=== PATIENT | male | born 1955 | race African-American/Black ===

== ENCOUNTER 2017-10-21 15:23 | Inpatient (IN) | payer MEDICARE ==
[2017-10-21] MEDS: IV NORMAL SALINE 1000ML BAG 1,000 ML IV ×2 (16:47→21:24)
[2017-10-21 17:06] LABS: BILIRUBIN,URINE NEGATIVE (NEG); CLARITY,URINE CLOUDY; COLOR,URINE YELLOW; GLUCOSE,URINE 100 mg/dL (NEG); NITRITE,URINE NEGATIVE (NEG); PROTEIN,URINE >=300 mg/dL (NEG-TRACE); UROBILINOGEN,URINE 0.2 mg/dL (0.2 mg/dL)
[2017-10-21 17:13] LABS: ADD MAN DIFF? NO
[2017-10-21 17:17] LABS: BASO # 0.1 x10^3/uL (0.0-0.2); BASO % 2 % (0-3); EOS # 0.1 x10^3/uL (0.0-0.7); EOS % 3 % (0-3); HEMATOCRIT 29.6 % (39.0-53.0); HEMOGLOBIN 9.7 g/dL (13.0-17.5); LYMPH # 1.2 x10^3/uL (1.0-4.8); LYMPH % 25 % (24-48); MEAN CORPUSCULAR HEMOGLOBIN 26 pg (25-35); MEAN CORPUSCULAR HGB CONC 33 g/dL (31-37); MEAN CORPUSCULAR VOLUME 80 fL (79-100); MONO # 0.5 x10^3/uL (0.0-1.1); MONO % 11 % (0-9); NEUT # 2.8 x10^3uL (1.8-7.7); NEUT % 59 % (31-73); PLATELET COUNT 175 x10^3/uL (140-400); RED BLOOD COUNT 3.72 x10^6/uL (4.30-5.70); WHITE BLOOD COUNT 4.7 x10^3/uL (4.0-11.0)
[2017-10-21 17:27] LABS: BACTERIA,URINE FEW /HPF (0-FEW); WBC,URINE TNTC /HPF (0-4)
[2017-10-21 17:28] LABS: ANION GAP 12 (6-14); BLOOD UREA NITROGEN 8 mg/dL (8-26); BUN/CREATININE RATIO 1 (6-20); CALCIUM 9.2 mg/dL (8.5-10.1); CARBON DIOXIDE 21 mmol/L (21-32); CHLORIDE 111 mmol/L (98-107); CREATININE 5.5 mg/dL (0.7-1.3); GFR 12.8; GLUCOSE 146 mg/dL (70-99); POTASSIUM 5.9 mmol/L (3.5-5.1); SODIUM 144 mmol/L (136-145)
[2017-10-21 17:34] LABS: ALK PHOS 68 U/L (46-116); ALT (SGPT) 9 U/L (16-63); AST (SGOT) 15 U/L (15-37); LIPASE 247 U/L (73-393); TOTAL BILIRUBIN 0.1 mg/dL (0.2-1.0); TOTAL PROTEIN 6.6 g/dL (6.4-8.2)
[2017-10-21] MEDS: DOXYCYCLINE HYCLATE 100 MG TABLET PO (17:45)
[2017-10-21] MEDS: cefTRIAXone IM 250 MG VIAL IM (17:45)
[2017-10-21 17:51] LABS: ALBUMIN 2.8 g/dL (3.4-5.0); ALBUMIN/GLOBULIN RATIO 0.7 (1.0-1.7)
[2017-10-21] MEDS ORDERED: ACETAMINOPHEN 325 MG TABLET. PO (19:45)
[2017-10-21] MEDS ORDERED: ONDANSETRON PF 4 MG/2 ML VIAL. IV (19:45)
[2017-10-21] MEDS: SODIUM POLYSTYRENE SULFONATE 15 GM/60 ML ORAL.SUSP. PO (20:07)
[2017-10-21 20:57] LABS: POC GLUCOSE 148 mg/dL (70-99)
[2017-10-21] MEDS ORDERED: DEXTROSE 50% 25 GM / 50ML DISP.SYRIN. IV (22:30)
[2017-10-21] MEDS: SODIUM BICARBONATE 650 MG TABLET. PO (23:22)
[2017-10-21] MEDS: GABAPENTIN 300 MG CAPSULE. PO (23:22)
[2017-10-21] MEDS: ATORVASTATIN CALCIUM 20 MG TABLET PO (23:22)
[2017-10-21] MEDS: INSULIN DETEMIR 300 UNITS/3 ML INSULN.PEN. SQ (23:31)
[2017-10-22] MEDS: cefTRIAXone IV Push 1 GM VIAL. IVP ×2 (00:26→20:44)
[2017-10-22 05:25] LABS: ADD MAN DIFF? NO
[2017-10-22 05:35] LABS: BASO % 1 % (0-3); EOS # 0.2 x10^3/uL (0.0-0.7); EOS % 4 % (0-3); HEMATOCRIT 25.3 % (39.0-53.0); HEMOGLOBIN 8.3 g/dL (13.0-17.5); LYMPH # 1.2 x10^3/uL (1.0-4.8); LYMPH % 29 % (24-48); MEAN CORPUSCULAR HEMOGLOBIN 26 pg (25-35); MEAN CORPUSCULAR HGB CONC 33 g/dL (31-37); MEAN CORPUSCULAR VOLUME 80 fL (79-100); MONO # 0.5 x10^3/uL (0.0-1.1); MONO % 11 % (0-9); NEUT # 2.4 x10^3uL (1.8-7.7); NEUT % 55 % (31-73); PLATELET COUNT 143 x10^3/uL (140-400); RED BLOOD COUNT 3.15 x10^6/uL (4.30-5.70); RED CELL DISTRIBUTION WIDTH 14.9 % (11.5-14.5); WHITE BLOOD COUNT 4.3 x10^3/uL (4.0-11.0)
[2017-10-22] MEDS: IV NORMAL SALINE 1000ML BAG 1,000 ML IV ×2 (05:35→16:54)
[2017-10-22 05:43] LABS: INR 1.2 (0.8-1.1); PROTHROMBIN TIME PATIENT 14.3 SEC (11.7-14.0)
[2017-10-22 06:18] LABS: % SAT IRON 35 % (15-34); IRON,SERUM 59 ug/dL (65-175)
[2017-10-22 06:20] LABS: FERRITIN 103 ng/mL (26-388)
[2017-10-22 06:47] LABS: ANION GAP 12 (6-14); BLOOD UREA NITROGEN 43 mg/dL (8-26); CALCIUM 8.1 mg/dL (8.5-10.1); CARBON DIOXIDE 17 mmol/L (21-32); CHLORIDE 115 mmol/L (98-107); CREATININE 4.9 mg/dL (0.7-1.3); GFR 14.6; GLUCOSE 108 mg/dL (70-99); POTASSIUM 4.8 mmol/L (3.5-5.1); SODIUM 144 mmol/L (136-145)
[2017-10-22] MEDS: INSULIN ASPART 300 UNITS/3 ML INSULN.PEN SQ ×3 (08:00→16:57)
[2017-10-22 08:06] LABS: POC GLUCOSE 115 mg/dL (70-99)
[2017-10-22] MEDS: CHOLECALCIFEROL (VITAMIN D3) 1,000 UNIT TABLET PO (08:29)
[2017-10-22] MEDS: GABAPENTIN 300 MG CAPSULE. PO ×2 (08:29→20:43)
[2017-10-22] MEDS: amLODIPine BESYLATE 5 MG TABLET PO (08:29)
[2017-10-22] MEDS: FERROUS SULFATE 325 MG TABLET. PO (08:29)
[2017-10-22] MEDS: SODIUM BICARBONATE 650 MG TABLET. PO ×3 (08:29→20:43)
[2017-10-22] MEDS ORDERED: DEXTROSE 50% 25 GM / 50ML DISP.SYRIN. IV (09:30)
[2017-10-22 11:38] LABS: POC GLUCOSE 105 mg/dL (70-99)
[2017-10-22 11:54] LABS: VITAMIN-B12 344 pg/mL (247-911)
[2017-10-22] MEDS ORDERED: HEPARIN for IV BOLUS 10,000 UNIT/10 ML VIAL. (15:29)
[2017-10-22] MEDS ORDERED: LIDOCAINE 2%/EPI 1:100,000 20 ML VIAL. (15:29)
[2017-10-22] MEDS ORDERED: MIDAZOLAM HCL/PF 2 MG/2 ML VIAL. (15:34)
[2017-10-22] MEDS ORDERED: fentaNYL PF VIAL 100 MCG/2 ML VIAL (15:35)
[2017-10-22] MEDS: MIDAZOLAM HCL/PF 2 MG/2 ML VIAL. IV (16:00)
[2017-10-22] MEDS: fentaNYL PF VIAL 100 MCG/2 ML VIAL IV (16:00)
[2017-10-22] MEDS: LIDOCAINE 2%/EPI 1:100,000 20 ML VIAL. IJ (16:00)
[2017-10-22 16:38] LABS: POC GLUCOSE 98 mg/dL (70-99)
[2017-10-22] MEDS: ATORVASTATIN CALCIUM 20 MG TABLET PO (20:43)
[2017-10-22] MEDS: LACTOBACILLUS RHAMNOSUS GG 1 CAPSULE. PO (20:43)
[2017-10-22] MEDS: DARBEPOETIN ALFA 60 MCG/0.3 ML DISP.SYRIN. SQ (20:43)
[2017-10-22] MEDS: INSULIN DETEMIR 300 UNITS/3 ML INSULN.PEN. SQ (20:53)
[2017-10-23] MEDS: HYDROcodone/APAP 5/325MG 1 TAB TABLET PO ×4 (03:52→23:03)
[2017-10-23 05:38] LABS: HEMATOCRIT 28.1 % (39.0-53.0); HEMOGLOBIN 9.2 g/dL (13.0-17.5); MEAN CORPUSCULAR HEMOGLOBIN 26 pg (25-35); MEAN CORPUSCULAR HGB CONC 33 g/dL (31-37); MEAN CORPUSCULAR VOLUME 80 fL (79-100); PLATELET COUNT 150 x10^3/uL (140-400); RED BLOOD COUNT 3.51 x10^6/uL (4.30-5.70); RED CELL DISTRIBUTION WIDTH 15.1 % (11.5-14.5); WHITE BLOOD COUNT 4.5 x10^3/uL (4.0-11.0)
[2017-10-23 06:32] LABS: ALBUMIN 2.3 g/dL (3.4-5.0); ALK PHOS 70 U/L (46-116); ALT (SGPT) 7 U/L (16-63); ANION GAP 9 (6-14); AST (SGOT) 13 U/L (15-37); BLOOD UREA NITROGEN 44 mg/dL (8-26); CALCIUM 7.7 mg/dL (8.5-10.1); CARBON DIOXIDE 21 mmol/L (21-32); CHLORIDE 114 mmol/L (98-107); CREATININE 4.6 mg/dL (0.7-1.3); DIRECT BILIRUBIN < 0.1 mg/dL (0.0-0.2); GFR 15.7; GLUCOSE 185 mg/dL (70-99); PHOSPHORUS 3.7 mg/dL (2.6-4.7); POTASSIUM 5.2 mmol/L (3.5-5.1); SODIUM 144 mmol/L (136-145); TOTAL BILIRUBIN 0.1 mg/dL (0.2-1.0); TOTAL PROTEIN 5.8 g/dL (6.4-8.2)
[2017-10-23 06:52] LABS: % SAT IRON 18 % (15-34); IRON,SERUM 35 ug/dL (65-175)
[2017-10-23 08:13] LABS: POC GLUCOSE 227 mg/dL (70-99)
[2017-10-23] MEDS: amLODIPine BESYLATE 5 MG TABLET PO (08:14)
[2017-10-23] MEDS: SODIUM BICARBONATE 650 MG TABLET. PO ×3 (08:23→20:49)
[2017-10-23] MEDS: FERROUS SULFATE 325 MG TABLET. PO (08:23)
[2017-10-23] MEDS: GABAPENTIN 300 MG CAPSULE. PO ×2 (08:23→20:50)
[2017-10-23] MEDS: CHOLECALCIFEROL (VITAMIN D3) 1,000 UNIT TABLET PO (08:23)
[2017-10-23] MEDS: LACTOBACILLUS RHAMNOSUS GG 1 CAPSULE. PO ×2 (08:24→20:50)
[2017-10-23] MEDS ORDERED: IV NORMAL SALINE 1000ML BAG 1,000 ML IV ×2 (08:35)
[2017-10-23] MEDS: INSULIN ASPART 300 UNITS/3 ML INSULN.PEN SQ ×3 (08:35→17:07)
[2017-10-23] MEDS ORDERED: DIALYSIS PATIENT. MC ×2 (08:45)
[2017-10-23] MEDS ORDERED: 0.9 % SODIUM CHLORIDE 10 ML DISP.SYRIN. IV ×2 (08:45)
[2017-10-23 13:17] LABS: POC GLUCOSE 118 mg/dL (70-99)
[2017-10-23] MEDS: CYCLOBENZAPRINE 10 MG TABLET. PO (15:21)
[2017-10-23] MEDS: HEPARIN PF for SUB-Q USE 5,000 UNIT/0.5 ML VIAL. SQ ×2 (15:30→20:50)
[2017-10-23] MEDS ORDERED: WARFARIN 5 MG TABLET. PO (16:00)
[2017-10-23 16:32] LABS: POC GLUCOSE 215 mg/dL (70-99)
[2017-10-23] MEDS: WARFARIN 5 MG TABLET. PO (16:59)
[2017-10-23] MEDS: ZOLPIDEM 5 MG TABLET. PO (20:49)
[2017-10-23] MEDS: ATORVASTATIN CALCIUM 20 MG TABLET PO (20:49)
[2017-10-23] MEDS: cefTRIAXone IV Push 1 GM VIAL. IVP (20:50)
[2017-10-23] MEDS: INSULIN DETEMIR 300 UNITS/3 ML INSULN.PEN. SQ (20:57)
[2017-10-23 20:59] LABS: POC GLUCOSE 209 mg/dL (70-99)
[2017-10-23 21:11] LABS: POC GLUCOSE 221 mg/dL (70-99)
[2017-10-24 07:55] LABS: POC GLUCOSE 273 mg/dL (70-99)
[2017-10-24] MEDS: FERROUS SULFATE 325 MG TABLET. PO (08:17)
[2017-10-24] MEDS: GABAPENTIN 300 MG CAPSULE. PO ×2 (08:17→21:03)
[2017-10-24] MEDS: SODIUM BICARBONATE 650 MG TABLET. PO ×3 (08:17→21:03)
[2017-10-24] MEDS: HYDROcodone/APAP 5/325MG 1 TAB TABLET PO ×3 (08:18→21:04)
[2017-10-24] MEDS: LACTOBACILLUS RHAMNOSUS GG 1 CAPSULE. PO ×2 (08:18→21:03)
[2017-10-24] MEDS: CHOLECALCIFEROL (VITAMIN D3) 1,000 UNIT TABLET PO (08:18)
[2017-10-24] MEDS: amLODIPine BESYLATE 5 MG TABLET PO (08:22)
[2017-10-24 08:27] LABS: INR 1.1 (0.8-1.1); PROTHROMBIN TIME PATIENT 13.7 SEC (11.7-14.0)
[2017-10-24] MEDS: INSULIN ASPART 300 UNITS/3 ML INSULN.PEN SQ ×3 (08:30→16:53)
[2017-10-24] MEDS: HEPARIN PF for SUB-Q USE 5,000 UNIT/0.5 ML VIAL. SQ ×2 (08:31→21:14)
[2017-10-24 12:13] LABS: POC GLUCOSE 129 mg/dL (70-99)
[2017-10-24] MEDS: WARFARIN 7.5 MG TABLET. PO (16:47)
[2017-10-24 16:49] LABS: POC GLUCOSE 218 mg/dL (70-99)
[2017-10-24 20:58] LABS: POC GLUCOSE 216 mg/dL (70-99)
[2017-10-24] MEDS: ZOLPIDEM 5 MG TABLET. PO ×2 (21:03→23:09)
[2017-10-24] MEDS: ATORVASTATIN CALCIUM 20 MG TABLET PO (21:03)
[2017-10-24] MEDS: cefTRIAXone IV Push 1 GM VIAL. IVP (21:04)
[2017-10-24] MEDS: INSULIN DETEMIR 300 UNITS/3 ML INSULN.PEN. SQ (21:15)
[2017-10-24 23:08] LABS: HEP B SURFACE ABDY Non Reactive (.); HEP B SURFACE AG Negative (Negative)
[2017-10-25 05:55] LABS: INR 1.1 (0.8-1.1); PROTHROMBIN TIME PATIENT 13.9 SEC (11.7-14.0)
[2017-10-25] MEDS: INSULIN ASPART 300 UNITS/3 ML INSULN.PEN SQ ×5 (08:00→17:23)
[2017-10-25 08:01] LABS: POC GLUCOSE 227 mg/dL (70-99)
[2017-10-25] MEDS: HEPARIN PF for SUB-Q USE 5,000 UNIT/0.5 ML VIAL. SQ ×2 (09:00→21:13)
[2017-10-25] MEDS ORDERED: 0.9 % SODIUM CHLORIDE 10 ML DISP.SYRIN. IV ×2 (09:30)
[2017-10-25] MEDS ORDERED: DIALYSIS PATIENT. MC ×2 (09:30)
[2017-10-25] MEDS: SODIUM BICARBONATE 650 MG TABLET. PO ×3 (13:13→20:59)
[2017-10-25] MEDS: GABAPENTIN 300 MG CAPSULE. PO ×2 (13:13→20:59)
[2017-10-25] MEDS: CHOLECALCIFEROL (VITAMIN D3) 1,000 UNIT TABLET PO (13:13)
[2017-10-25] MEDS: FERROUS SULFATE 325 MG TABLET. PO (13:13)
[2017-10-25] MEDS: LACTOBACILLUS RHAMNOSUS GG 1 CAPSULE. PO ×2 (13:13→20:59)
[2017-10-25] MEDS: amLODIPine BESYLATE 5 MG TABLET PO (13:14)
[2017-10-25] MEDS: HYDROcodone/APAP 5/325MG 1 TAB TABLET PO ×2 (13:16→21:01)
[2017-10-25 16:20] LABS: POC GLUCOSE 272 mg/dL (70-99)
[2017-10-25] MEDS: WARFARIN 10 MG TABLET. PO (17:20)
[2017-10-25] MEDS: ATORVASTATIN CALCIUM 20 MG TABLET PO (20:59)
[2017-10-25] MEDS: cefTRIAXone IV Push 1 GM VIAL. IVP (21:00)
[2017-10-25] MEDS: ZOLPIDEM 5 MG TABLET. PO (21:01)
[2017-10-25] MEDS: INSULIN DETEMIR 300 UNITS/3 ML INSULN.PEN. SQ (21:14)
[2017-10-26 05:49] LABS: ALBUMIN 2.3 g/dL (3.4-5.0); ANION GAP 3 (6-14); BLOOD UREA NITROGEN 33 mg/dL (8-26); CALCIUM 8.2 mg/dL (8.5-10.1); CARBON DIOXIDE 31 mmol/L (21-32); CHLORIDE 103 mmol/L (98-107); CREATININE 3.8 mg/dL (0.7-1.3); GFR 19.6; GLUCOSE 294 mg/dL (70-99); PHOSPHORUS 2.4 mg/dL (2.6-4.7); POTASSIUM 4.7 mmol/L (3.5-5.1); SODIUM 137 mmol/L (136-145)
[2017-10-26 06:52] LABS: INR 1.4 (0.8-1.1); PROTHROMBIN TIME PATIENT 16.5 SEC (11.7-14.0)
[2017-10-26 07:28] LABS: POC GLUCOSE 238 mg/dL (70-99)
[2017-10-26] MEDS: LACTOBACILLUS RHAMNOSUS GG 1 CAPSULE. PO ×2 (07:44→21:25)
[2017-10-26] MEDS: SODIUM BICARBONATE 650 MG TABLET. PO (07:45)
[2017-10-26] MEDS: GABAPENTIN 300 MG CAPSULE. PO ×2 (07:45→21:25)
[2017-10-26] MEDS: ACETAMINOPHEN 325 MG TABLET. PO (07:46)
[2017-10-26] MEDS: FERROUS SULFATE 325 MG TABLET. PO (07:46)
[2017-10-26] MEDS: amLODIPine BESYLATE 5 MG TABLET PO (07:46)
[2017-10-26] MEDS: CHOLECALCIFEROL (VITAMIN D3) 1,000 UNIT TABLET PO (07:46)
[2017-10-26] MEDS: HEPARIN PF for SUB-Q USE 5,000 UNIT/0.5 ML VIAL. SQ ×2 (07:52→21:34)
[2017-10-26] MEDS: INSULIN ASPART 300 UNITS/3 ML INSULN.PEN SQ ×6 (07:52→17:32)
[2017-10-26] MEDS: HYDROcodone/APAP 5/325MG 1 TAB TABLET PO ×3 (07:55→21:26)
[2017-10-26] MEDS: VANCOMYCIN 2 GM in IV DEXTROSE 5 %-0.2 % NACL 500 ML IV ×2 (10:00→16:48)
[2017-10-26] MEDS: FOLIC/VIT B COMP W-C (RENAL) TABLET. PO (10:05)
[2017-10-26 11:22] LABS: POC GLUCOSE 98 mg/dL (70-99)
[2017-10-26] MEDS: VANCOMYCIN PER PHARMACY MC (15:33)
[2017-10-26] MEDS ORDERED: WARFARIN 5 MG TABLET. PO (16:00)
[2017-10-26] MEDS: WARFARIN 7.5 MG TABLET. PO (16:48)
[2017-10-26 17:32] LABS: POC GLUCOSE 265 mg/dL (70-99)
[2017-10-26 20:43] LABS: POC GLUCOSE 144 mg/dL (70-99)
[2017-10-26] MEDS: ATORVASTATIN CALCIUM 20 MG TABLET PO (21:25)
[2017-10-26] MEDS: ZOLPIDEM 5 MG TABLET. PO (21:25)
[2017-10-26 21:28] LABS: POC GLUCOSE 299 mg/dL (70-99)
[2017-10-26] MEDS: INSULIN DETEMIR 300 UNITS/3 ML INSULN.PEN. SQ (21:33)
[2017-10-26] MEDS: cefTRIAXone IV Push 1 GM VIAL. IVP (21:58)
[2017-10-26 23:30] LABS: POC GLUCOSE 148 mg/dL (70-99)
[2017-10-27 05:55] LABS: INR 2.1 (0.8-1.1)
[2017-10-27 07:35] LABS: POC GLUCOSE 133 mg/dL (70-99)
[2017-10-27] MEDS: INSULIN ASPART 300 UNITS/3 ML INSULN.PEN SQ ×6 (07:37→16:56)
[2017-10-27] MEDS: FOLIC/VIT B COMP W-C (RENAL) TABLET. PO (08:27)
[2017-10-27] MEDS: amLODIPine BESYLATE 5 MG TABLET PO (08:27)
[2017-10-27] MEDS: CHOLECALCIFEROL (VITAMIN D3) 1,000 UNIT TABLET PO (08:27)
[2017-10-27] MEDS: GABAPENTIN 300 MG CAPSULE. PO (08:27)
[2017-10-27] MEDS: HYDROcodone/APAP 5/325MG 1 TAB TABLET PO ×2 (08:28→17:04)
[2017-10-27] MEDS: HEPARIN PF for SUB-Q USE 5,000 UNIT/0.5 ML VIAL. SQ (08:32)
[2017-10-27] MEDS: LACTOBACILLUS RHAMNOSUS GG 1 CAPSULE. PO (09:00)
[2017-10-27] MEDS ORDERED: DIALYSIS PATIENT. MC ×2 (10:00)
[2017-10-27] MEDS: VANCOMYCIN PER PHARMACY MC (15:04)
[2017-10-27 16:35] LABS: POC GLUCOSE 248 mg/dL (70-99)
[2017-10-27] MEDS: WARFARIN 5 MG TABLET. PO (16:51)
[2017-10-27] MEDS: CEFPODOXIME PROXETIL 100 MG TABLET. PO (16:51)
[2017-10-27] MEDS: VANCOMYCIN RANDOM LEVEL. MC (18:00)
== END 2017-10-27 18:10 | disposition home or self-care (01) | DRG 673 ==
LOC: ER 15:23 → 5 NORTH 19:12
PROC: 0JH63XZ Insertion of Tunneled Vascular Access Device into Chest Subcutaneous Tissue and Fascia, Percutaneous Approach (ICD-10-PCS; 2017-10-22)
PROC: 02H633Z Insertion of Infusion Device into Right Atrium, Percutaneous Approach (ICD-10-PCS; 2017-10-22)
PROC: B244ZZZ Ultrasonography of Right Heart (ICD-10-PCS; 2017-10-22)
PROC: 5A1D70Z Performance of Urinary Filtration, Intermittent, Less than 6 Hours Per Day (ICD-10-PCS; principal; 2017-10-25)
PROC: 5A1D70Z Performance of Urinary Filtration, Intermittent, Less than 6 Hours Per Day (ICD-10-PCS; 2017-10-27)
DX: I12.0 Hypertensive chronic kidney disease with stage 5 chronic kidney disease or end stage renal disease (principal); N18.6 End stage renal disease; E87.2 Acidosis; E11.22 Type 2 diabetes mellitus with diabetic chronic kidney disease; E46 Unspecified protein-calorie malnutrition; N39.0 Urinary tract infection, site not specified; E87.5 Hyperkalemia; D63.1 Anemia in chronic kidney disease; Z68.28 Body mass index [BMI] 28.0-28.9, adult; F17.210 Nicotine dependence, cigarettes, uncomplicated; Z79.01 Long term (current) use of anticoagulants; Z79.4 Long term (current) use of insulin; Z82.49 Family history of ischemic heart disease and other diseases of the circulatory system; Z83.3 Family history of diabetes mellitus; Z85.038 Personal history of other malignant neoplasm of large intestine; Z86.718 Personal history of other venous thrombosis and embolism; Z90.49 Acquired absence of other specified parts of digestive tract; Z91.19 Patient's noncompliance with other medical treatment and regimen; Z93.3 Colostomy status; Z99.2 Dependence on renal dialysis; M19.90 Unspecified osteoarthritis, unspecified site; Z85.9 Personal history of malignant neoplasm, unspecified; Z88.8 Allergy status to other drugs, medicaments and biological substances
CPT/HCPCS: 36415; 36558; 71045; 74176; 76937; 77001; 80048; 80053; 80069; 80076; 81001; 82607; 82728; 82746; 82962; 83540; 83550; 83690; 84100; 85025; 85027; 85610; 86704; 86706; 87040; 87086; 87186; 87340; 87491; 87591; 93005; 96360; 96372; 99152; 99285; 99285-25; C1750; C1769; C1892; J0696; J0881; J1815; J2250; J3010; J3370; J3490; J7030

== ENCOUNTER 2018-01-05 17:39 | Emergency (ER) | payer MEDICARE ==
[2018-01-05 19:52] LABS: ADD MAN DIFF? NO
[2018-01-05 19:54] LABS: BASO % 1 % (0-3); EOS # 0.1 x10^3/uL (0.0-0.7); EOS % 2 % (0-3); HEMATOCRIT 32.2 % (39.0-53.0); HEMOGLOBIN 10.7 g/dL (13.0-17.5); LYMPH % 19 % (24-48); MEAN CORPUSCULAR HEMOGLOBIN 27 pg (25-35); MEAN CORPUSCULAR HGB CONC 33 g/dL (31-37); MEAN CORPUSCULAR VOLUME 81 fL (79-100); MONO # 0.8 x10^3/uL (0.0-1.1); MONO % 15 % (0-9); NEUT # 3.2 x10^3uL (1.8-7.7); NEUT % 62 % (31-73); PLATELET COUNT 156 x10^3/uL (140-400); RED BLOOD COUNT 3.96 x10^6/uL (4.30-5.70); RED CELL DISTRIBUTION WIDTH 15.4 % (11.5-14.5); WHITE BLOOD COUNT 5.1 x10^3/uL (4.0-11.0)
[2018-01-05 20:05] LABS: INR 1.2 (0.8-1.1); PROTHROMBIN TIME PATIENT 14.3 SEC (11.7-14.0)
[2018-01-05 20:11] LABS: ANION GAP 8 (6-14); BLOOD UREA NITROGEN 15 mg/dL (8-26); BUN/CREATININE RATIO 4 (6-20); CALCIUM 8.5 mg/dL (8.5-10.1); CARBON DIOXIDE 31 mmol/L (21-32); CHLORIDE 104 mmol/L (98-107); CREATININE 4.1 mg/dL (0.7-1.3); GLUCOSE 97 mg/dL (70-99); SODIUM 143 mmol/L (136-145)
[2018-01-05 20:15] LABS: NT-PRO BNP 750 pg/mL (0-124)
[2018-01-05 20:16] LABS: ALBUMIN 3.2 g/dL (3.4-5.0); ALBUMIN/GLOBULIN RATIO 0.8 (1.0-1.7); ALK PHOS 81 U/L (46-116); ALT (SGPT) 13 U/L (16-63); AST (SGOT) 15 U/L (15-37); TOTAL BILIRUBIN 0.4 mg/dL (0.2-1.0); TOTAL PROTEIN 7.3 g/dL (6.4-8.2)
[2018-01-05 22:04] LABS: TROPONINI < 0.017 ng/mL (0.000-0.055)
== END 2018-01-05 21:09 | disposition home or self-care (01) ==
LOC: ER 17:39
DX: R60.1 Generalized edema (principal); Z91.14 Patient's other noncompliance with medication regimen; E10.22 Type 1 diabetes mellitus with diabetic chronic kidney disease; N18.6 End stage renal disease; Z99.2 Dependence on renal dialysis; F17.210 Nicotine dependence, cigarettes, uncomplicated; Z79.01 Long term (current) use of anticoagulants; Z86.718 Personal history of other venous thrombosis and embolism; Z88.5 Allergy status to narcotic agent
CPT/HCPCS: 36415; 80053; 83880; 84484; 85025; 85610; 93971; 99285-25

== ENCOUNTER → 2018-02-07 | Outpatient (CLI) | payer MEDICARE ==
[2018-02-07 15:28] LABS: INR 1.3 (0.8-1.1); PROTHROMBIN TIME PATIENT 15.5 SEC (11.7-14.0)
== END | disposition home or self-care (01) ==
LOC: LAB 14:45
DX: Z51.81 Encounter for therapeutic drug level monitoring (principal); Z79.01 Long term (current) use of anticoagulants
CPT/HCPCS: 36415; 85610

== ENCOUNTER 2018-09-29 06:51 | Outpatient (CLI) | payer MEDICARE ==
[2018-09-29] VITALS (7 sets, daily range): BP systolic 137–175; BP diastolic 85–97
[~2018-09-29] VITALS: Ht 190.5 cm; Wt 90.7 kg
[~2018-09-29 06:51] MED LIST: AMLO10TA4 PO; AMOX1TAB61 PO; ASPI325T8 PO; ATOR20TA58 PO; BUSP5TAB PO; CEFP100T PO; CEPH-264 PO; CHOL10003 PO; CIPR500T94 PO; DILT180C29 PO; DOXY100T PO; FAMO20TA5 PO; FERR325T14 PO; FLUT16SP2 NS; FOLI0.8T3 PO; FOLI1TAB16 PO; FURO-69 PO; GABA300C18 PO; HYDR-2868 PO; HYDR2TAB31 PO; INSU100C SQ; INSU100I11 SQ; INSU100I13 SQ; LABE100T5 PO; LEXAPRO20 MG PO; LIDO700A39 TD; LISI-334 PO; LISI10TA2 PO; LORA-434 PO; LOSA100T2 PO; METH25VI27 SQ; MIRT15TA3 PO; OXYC5TAB4 PO; SODI650T PO; WARF-31 PO; WARF-78 PO
[2018-09-29 07:39] LABS: BASO % 1 % (0-3); EOS # 0.2 x10^3/uL (0.0-0.7); EOS % 4 % (0-3); HEMATOCRIT 35.5 % (39.0-53.0); HEMOGLOBIN 11.9 g/dL (13.0-17.5); LYMPH # 0.9 x10^3/uL (1.0-4.8); LYMPH % 24 % (24-48); MEAN CORPUSCULAR HEMOGLOBIN 28 pg (25-35); MEAN CORPUSCULAR HGB CONC 34 g/dL (31-37); MEAN CORPUSCULAR VOLUME 84 fL (79-100); MONO # 0.5 x10^3/uL (0.0-1.1); MONO % 13 % (0-9); NEUT # 2.2 x10^3uL (1.8-7.7); NEUT % 59 % (31-73); PLATELET COUNT 162 x10^3/uL (140-400); RED BLOOD COUNT 4.23 x10^6/uL (4.30-5.70); RED CELL DISTRIBUTION WIDTH 14.4 % (11.5-14.5); WHITE BLOOD COUNT 3.8 x10^3/uL (4.0-11.0)
[2018-09-29] MEDS ORDERED: AMLO10TA6 PO (07:49)
[2018-09-29] MEDS ORDERED: FURO80TA3 PO (07:49)
[2018-09-29 07:50] LABS: PROTHROMBIN TIME PATIENT 13.7 SEC (11.7-14.0)
[2018-09-29] MEDS ORDERED: WARF10TA40 PO (07:52)
[2018-09-29] MEDS ORDERED: WARF-31 PO ×2 (07:52)
[2018-09-29] MEDS ORDERED: LIDOCAINE WITH 8.4% SOD BICARB 3 ML DISP.SYRIN. ONE (08:01)
[2018-09-29] MEDS ORDERED: IODIXANOL 320 MG/ML 50ML VIAL. ONE (08:08)
[2018-09-29] MEDS ORDERED: IODIXANOL 320 MG/ML 100 ML VIAL. ONE (08:10)
[2018-09-29] MEDS ORDERED: ALTEPLASE 2 MG VIAL INT CAT ONE (08:30)
[2018-09-29] MEDS ORDERED: fentaNYL PF VIAL 100 MCG/2 ML VIAL ONE (08:36)
[2018-09-29] MEDS ORDERED: MIDAZOLAM HCL/PF 2 MG/2 ML VIAL. ONE (08:36)
[2018-09-29] MEDS ORDERED: HEPARIN for IV BOLUS 10,000 UNIT/10 ML VIAL. ONE (08:36)
[2018-09-29] MEDS ORDERED: CONTRAST GIVEN. MC PRN (09:00)
[2018-09-29] MEDS ORDERED: IODIXANOL 320 MG/ML 100 ML VIAL. IART ONE (09:00)
[2018-09-29] MEDS ORDERED: LIDOCAINE WITH 8.4% SOD BICARB 3 ML DISP.SYRIN. IJ ONE (09:00)
[2018-09-29] MEDS ORDERED: IODIXANOL 320 MG/ML 50ML VIAL. IART ONE (09:00)
[2018-09-29] MEDS ORDERED: fentaNYL PF VIAL 100 MCG/2 ML VIAL IV ONE (09:00)
[2018-09-29] MEDS ORDERED: MIDAZOLAM HCL/PF 2 MG/2 ML VIAL. IV ONE (09:00)
[2018-09-29] MEDS ORDERED: HEPARIN for IV BOLUS 10,000 UNIT/10 ML VIAL. IV ONE (09:15)
--- NOTE | 2018-09-29 11:38 | NUR ---
Discharge Note: UMER VANCE Discharge instructions and discharge home medications reviewed with Patient and a copy given. All questions have been answered and understanding verbalized. The following instructions and handouts were given: education was given to patient regarding moderate sedation andwarfarin. Pt was also instructed to continue home medications as directed. Pt verbalized understanding. Discontinued lines and drains: peripheral iv was discontinued with no complications. Cathter tip was intact. Patient discharged to home with self care via wheelchair. Pt was accompanied by mother.
--- NOTE | 2018-09-30 07:59 | RAD ---
09/29/2018 1.Right upper extremity fistulogram 2. Thrombolysis, right upper extremity thrombosed AV graft 3. Balloon angioplasty, venous anastomotic and proximal outflow vein stenosis Indication: Thrombosed right upper extremity, upper arm AV graft Discussion: The risks and benefits of the procedure were discussed the patient. Informed consent was obtained. A timeout procedure was performed. The right upper extremity was prepped and draped using sterile barrier technique. Ultrasound evaluation demonstrates complete graft thrombosis. The arterial and venous limbs of the graft were accessed. Lysis catheters were placed. 8 mg of TPA was administered throughout the graft. The patient was heparinized. Following a 20 minute intubation, a pullback venogram was performed. Mild nonflow-limiting narrowing appears to be present the level of the right brachiocephalic vein. No significant collaterals were seen. Nonsubtracted injections demonstrated no significant narrowing. Stenosis appears to be present in the proximal outflow vein and venous anastomosis. Balloon maceration throughout the graft was performed. Angioplasty of the venous anastomosis and proximal outflow vein was performed with a 7 mm x 8 cm high pressure balloon. The arterial plug was pulled. Following additional balloon maceration, the graft was found to be free of thrombus. Brisk flow seen through the graft with resolution of bilateral vein stenosis. Total fluoroscopy time:: 12.2 min Dose area product: 22 Gycm2 The procedure was performed under conscious sedation including continuous cardiopulmonary monitoring via dedicated sedation nurse. [id number]-gayv sedation time: 45 min Impression: Successful thrombolysis, right upper extremity AV graft. Successful treatment of venous anastomotic and proximal outflow vein stenosis with balloon angioplasty as described.
== END 2018-09-29 11:41 | disposition home or self-care (01) ==
LOC: INTRAD 06:51
PROVIDERS: ATTEND Internal Medicine Nephrology
DX: T82.868A Thrombosis due to vascular prosthetic devices, implants and grafts, initial encounter (principal); Y83.2 Surgical operation with anastomosis, bypass or graft as the cause of abnormal reaction of the patient, or of later complication, without mention of misadventure at the time of the procedure; Y92.89 Other specified places as the place of occurrence of the external cause; Z79.01 Long term (current) use of anticoagulants; Z88.8 Allergy status to other drugs, medicaments and biological substances
CPT/HCPCS: 36415; 36905; 76937; 85025; 85610; 99152; 99153; C1725; C1757; C1769; C1892; C1894; J1644; J2250; J2997; J3010; Q9967; 36901

== ENCOUNTER 2018-11-20 14:37 | Inpatient (IN) | payer MEDICARE ==
[~2018-11-20] VITALS: Ht 190.5 cm; Wt 88.3 kg
[2018-11-20] VITALS (9 sets, daily range): BP systolic 127–202; BP diastolic 59–84
[~2018-11-20 14:37] MED LIST changes: +AMLO10TA8 PO; +FURO80TA3 PO; +WARF10TA40 PO
--- NOTE | 2018-11-20 16:32 | PHYS DOC ---
Past Medical History Past Medical History: Cancer, Diabetes-Type I, DVT, Other Additional Past Medical Histor: ulcerative colitis. Past Surgical History: Other Additional Past 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 Alcohol Use: Rarely Drug Use: None Adult General Chief Complaint Chief Complaint: WEAKNESS/GENERALIZED HPI HPI Patient is a 63 year old male who presents with his history of blood clots and is afraid he has a blood clot due to bilateral calf tenderness and all over weakness. Patient was at dialysis Wednesday and he did go on Wednesday to dialysis. Patient states at times he gets lightheaded and when he stands up it hurts when he also feels like he is "off". Review of Systems Review of Systems Constitutional: Denies fever or chills [] Eyes: Denies change in visual acuity, redness, or eye pain [] HENT: Denies nasal congestion or sore throat [] Respiratory: Denies cough or shortness of breath [] Cardiovascular: No additional information not addressed in HPI [] GI: Denies abdominal pain, nausea, vomiting, bloody stools or diarrhea [] : Denies dysuria or hematuria [] Musculoskeletal: Generalized weakness. Bilateral calf pain. Denies back pain or joint pain [] Integument: Denies rash or skin lesions [] Neurologic: Denies headache, focal weakness or sensory changes [] Endocrine: Denies polyuria or polydipsia [] All other systems were reviewed and found to be within normal limits, except as documented in this note. Current Medications Current Medications Current Medications Medications (Trade) Dose Ordered Sig/Raymon Start Time Stop Time Status Last Admin Dose Admin Albuterol Sulfate (Ventolin Neb Soln) 20 mg 1X ONCE 11/20/18 18:15 11/20/18 18:16 DC Calcium Gluconate (Calcium Gluconate) 1,000 mg 1X ONCE 11/20/18 18:15 11/20/18 18:16 DC Dextrose (Dextrose 50%-Water Syringe) 25 gm 1X ONCE 11/20/18 18:15 11/20/18 18:16 DC Insulin Human Regular (HumuLIN R VIAL) 10 unit 1X ONCE 11/20/18 18:15 11/20/18 18:16 DC Sodium Bicarbonate (Sodium Bicarb Adult 8.4% Syr) 50 meq 1X ONCE 11/20/18 18:15 11/20/18 18:16 DC Allergies Allergies Allergies Coded Allergies Type Severity Reaction Last Updated Verified prednisone Allergy Unknown 10/23/17 Yes Physical Exam Physical Exam Constitutional: Well developed, well nourished, no acute distress, non-toxic appearance. [] HENT: Normocephalic, atraumatic, bilateral external ears normal, oropharynx moist, no oral exudates, nose normal. [] Eyes: PERRLA, EOMI, conjunctiva normal, no discharge. [] Neck: Normal range of motion, no tenderness, supple, no stridor. [] Cardiovascular:Heart rate regular rhythm, no murmur [] Lungs & Thorax: Bilateral breath sounds clear upper lobes diminished to lower lobes to auscultation [] Abdomen: Bowel sounds normal, soft, no tenderness, no masses, no pulsatile masses. [] Skin: Warm, dry, no erythema, no rash. [] Back: No tenderness, no CVA tenderness. [] Extremities: Bilateral calf tenderness, no cyanosis, no clubbing, ROM intact, bilateral calf 1+ edema. [] Neurologic: Alert and oriented X 3, normal motor function, normal sensory function, no focal deficits noted. [] Psychologic: Affect normal, judgement normal, mood normal. [] Current Patient Data Vital Signs Vital Signs Date Time Temp Pulse Resp B/P (MAP) Pulse Ox O2 Delivery O2 Flow Rate FiO2 11/20/18 15:35 98.5 81 20 205/86 (125) 99 Room Air 98.5 Lab Values Laboratory Tests Test 11/20/18 16:25 White Blood Count 3.4 x10^3/uL (4.0-11.0) L Red Blood Count 4.70 x10^6/uL (4.30-5.70) Hemoglobin 12.3 g/dL (13.0-17.5) L Hematocrit 39.0 % (39.0-53.0) Mean Corpuscular Volume 83 fL (79-100) Mean Corpuscular Hemoglobin 26 pg (25-35) Mean Corpuscular Hemoglobin Concent 32 g/dL (31-37) Red Cell Distribution Width 15.0 % (11.5-14.5) H Platelet Count 100 x10^3/uL (140-400) L Neutrophils (%) (Auto) 56 % (31-73) Lymphocytes (%) (Auto) 27 % (24-48) Monocytes (%) (Auto) 13 % (0-9) H Eosinophils (%) (Auto) 3 % (0-3) Basophils (%) (Auto) 1 % (0-3) Neutrophils # (Auto) 1.9 x10^3uL (1.8-7.7) Lymphocytes # (Auto) 0.9 x10^3/uL (1.0-4.8) L Monocytes # (Auto) 0.4 x10^3/uL (0.0-1.1) Eosinophils # (Auto) 0.1 x10^3/uL (0.0-0.7) Basophils # (Auto) 0.0 x10^3/uL (0.0-0.2) Sodium Level 140 mmol/L (136-145) Potassium Level 9.3 mmol/L (3.5-5.1) *H Chloride Level 109 mmol/L (98-107) H Carbon Dioxide Level 25 mmol/L (21-32) Anion Gap 6 (6-14) Blood Urea Nitrogen 39 mg/dL (8-26) H Creatinine 7.0 mg/dL (0.7-1.3) H Estimated GFR (Cockcroft-Gault) 9.7 BUN/Creatinine Ratio 6 (6-20) Glucose Level 183 mg/dL (70-99) H Calcium Level 9.0 mg/dL (8.5-10.1) Total Bilirubin 0.2 mg/dL (0.2-1.0) Aspartate Amino Transferase (AST) 18 U/L (15-37) Alanine Aminotransferase (ALT) 18 U/L (16-63) Alkaline Phosphatase 123 U/L (46-116) H Troponin I Quantitative < 0.017 ng/mL (0.000-0.055) Total Protein 7.4 g/dL (6.4-8.2) Albumin 3.3 g/dL (3.4-5.0) L Albumin/Globulin Ratio 0.8 (1.0-1.7) L Laboratory Tests 11/20/18 16:25 Laboratory Tests 11/20/18 16:25 EKG EKG T waves peak, Irregular rhythm, no acute abnormalities, no STEMI Interpretation Time: [address] Choudhury Radiology/Procedures Radiology/Procedures [] Impressions: [facility] [address] [place] [address] IMAGING REPORT Signed PATIENT: UMER VANCE ACCOUNT: [id number] : 1955 LOCATION: ER AGE: 63 SEX: M EXAM STATUS: REG ER ORD. PHYSICIAN: AMBIKA DUDLEY APRN REASON: weakness PROCEDURE: CT HEAD WO CONTRAST Examination: CT HEAD WO CONTRAST History: WEAKNESS
PREVIOUS Comparison/Correlation: None Findings: Axial images of the head were obtained without contrast. Mild atrophy is present. No intracranial hemorrhage, midline shift, or mass effect. Cavernous carotid calculation noted. Impression: No intracranial hemorrhage. RS Compliance Statement: One or more of the following individualized dose reduction techniques were utilized for this examination: 1. Automated exposure control 2. Adjustment of the mA and/or kV according to patient size 3. Use of iterative reconstruction technique Electronically signed by: Johan Fagan MD (11/20/2018 5:54 PM) [id number] DICTATED and SIGNED BY: JOHAN FAGAN MD DATE: 11/20/18 1751 [facility] [address] [place] [address] IMAGING REPORT Signed PATIENT: UMER VANCE ACCOUNT: [id number] : 1955 LOCATION: ER AGE: 63 SEX: M EXAM STATUS: REG ER ORD. PHYSICIAN: AMBIKA DUDLEY APRN REASON: BILATcalf pain PROCEDURE: VENOUS LOWER EXT BILATERAL Examination: VENOUS LOWER EXT BILATERAL History: BILAT CALF PAIN COMPARISON/CORRELATION: None FINDINGS: Bilateral lower extremity duplex venous ultrasound exam was performed. Grayscale, color Doppler, and spectral Doppler imaging was performed. Compression and augmentation was performed. The right common femoral vein, superficial femoral vein, popliteal vein, and greater saphenous vein are normal with no evidence of deep venous thrombus. Normal compressibility and augmentation is evident. The left common femoral vein, superficial femoral vein, popliteal vein, and greater saphenous vein are normal with no evidence of deep venous thrombus. Normal compressibility and augmentation is evident. IMPRESSION: Normal bilateral lower extremity duplex ultrasound exam. No evidence of deep venous thrombus involving the lower extremities. Electronically signed by: Johan Fagan MD (11/20/2018 5:51 PM) [facility] DICTATED and SIGNED BY: JOHAN FAGAN MD DATE: 11/20/18 175 Course & Med Decision Making Course & Med Decision Making Patient is a 63 year old male who presents with his history of blood clots and is afraid he has a blood clot due to bilateral calf tenderness and all over weakness x 3 days. Patient was at dialysis Wednesday and he did go on Wednesday to dialysis. Patient states at times he gets lightheaded and when he stands up it hurts when he also feels like he is "off". Denies chest pain, shortness of air, visual changes, recent illness, fever, nausea vomiting, abdominal pain, dysuria. Abdomen is soft and nontender. There is 1+ swelling bilateral lower extremities but neither extremity is more swollen than the other. With palpation he does have calf tenderness bilaterally. Lungs are clear to auscultation upper lobes but diminished in lower lobes. Vital signs are within normal limits. Neurologically intact. PERRLA. NIH negative. EKG shows a T waves Peaked, irregular rhythm and no STEMI. Patient's potassium is 9.3. I have spoken to Dr Zuluaga from nephrology to let him know about the patient and that the patient needs emergent dialysis. Patient is given Insulin, dextrose, calcium gluconate, Albuterol and Sodium Bicarb. 1830: I have spoken to Dr Reyes for admission. Emilie Disclaimer Emilie Disclaimer This electronic medical record was generated, in whole or in part, using a voice recognition dictation system. Departure Departure Referrals: UNKNOWN PCP NAME (PCP) NIHSS Stroke Scale NIH Stroke Scale: NIH Stroke Scale Response (Comments) Value Level of Consciousness: 0 Alert/Responsive 0 LOC Questions: 0 Answers both correctly 0 LOC Commands: 0 Performs both tasks 0 Best Gaze: 0 Normal 0 Visual: 0 No visual loss 0 Facial Palsy: 0 Normal, symmetrical 0 Motor - Left Arm 0 No drift 0 Motor - Right Arm 0 No drift 0 Motor - Left Leg 0 No drift 0 Motor: Right Leg 0 No drift 0 Limb Ataxia: 0 Absent 0 Sensory: 0 No loss 0 Best Language: 0 Normal 0 Dysathria: 0 Normal 0 Extinction and Inattention: 0 Normal 0 Total 0 AMBIKA DUDLEY APRN Nov 20, 2018 16:32
[2018-11-20 16:43] LABS: BASO % 1 % (0-3); EOS # 0.1 x10^3/uL (0.0-0.7); EOS % 3 % (0-3); HEMOGLOBIN 12.3 g/dL (13.0-17.5); LYMPH # 0.9 x10^3/uL (1.0-4.8); LYMPH % 27 % (24-48); MEAN CORPUSCULAR HEMOGLOBIN 26 pg (25-35); MEAN CORPUSCULAR HGB CONC 32 g/dL (31-37); MEAN CORPUSCULAR VOLUME 83 fL (79-100); MONO # 0.4 x10^3/uL (0.0-1.1); MONO % 13 % (0-9); NEUT # 1.9 x10^3uL (1.8-7.7); NEUT % 56 % (31-73); PLATELET COUNT 100 x10^3/uL (140-400); WHITE BLOOD COUNT 3.4 x10^3/uL (4.0-11.0)
[2018-11-20 17:30] LABS: ALBUMIN 3.3 g/dL (3.4-5.0); ALBUMIN/GLOBULIN RATIO 0.8 (1.0-1.7); GFR 9.7; TOTAL BILIRUBIN 0.2 mg/dL (0.2-1.0); TOTAL PROTEIN 7.4 g/dL (6.4-8.2)
[2018-11-20 17:32] LABS: POTASSIUM 9.3 mmol/L (3.5-5.1)
--- NOTE | 2018-11-20 17:54 | RAD ---
Examination: VENOUS LOWER EXT BILATERAL History: BILAT CALF PAIN COMPARISON/CORRELATION: None FINDINGS: Bilateral lower extremity duplex venous ultrasound exam was performed. Grayscale, color Doppler, and spectral Doppler imaging was performed. Compression and augmentation was performed. The right common femoral vein, superficial femoral vein, popliteal vein, and greater saphenous vein are normal with no evidence of deep venous thrombus. Normal compressibility and augmentation is evident. The left common femoral vein, superficial femoral vein, popliteal vein, and greater saphenous vein are normal with no evidence of deep venous thrombus. Normal compressibility and augmentation is evident. IMPRESSION: Normal bilateral lower extremity duplex ultrasound exam. No evidence of deep venous thrombus involving the lower extremities. Electronically signed by: Johan Garcia MD (11/20/2018 5:51 PM) [facility]
--- NOTE | 2018-11-20 17:57 | RAD ---
Examination: CT HEAD WO CONTRAST History: WEAKNESS
PREVIOUS Comparison/Correlation: None Findings: Axial images of the head were obtained without contrast. Mild atrophy is present. No intracranial hemorrhage, midline shift, or mass effect. Cavernous carotid calculation noted. Impression: No intracranial hemorrhage. PQRS Compliance Statement: One or more of the following individualized dose reduction techniques were utilized for this examination: 1. Automated exposure control 2. Adjustment of the mA and/or kV according to patient size 3. Use of iterative reconstruction technique Electronically signed by: Johan Garcia MD (11/20/2018 5:54 PM) [facility]
[2018-11-20] MEDS ORDERED: INSULIN REGULAR 100 UNIT/ML 3ML VIAL. IV ONE (18:15)
[2018-11-20] MEDS ORDERED: SODIUM BICARB ADULT 8.4% 50 MEQ/50 ML DISP.SYRIN. IV ONE (18:15)
[2018-11-20] MEDS ORDERED: ALBUTEROL SULFATE 2.5 MG/3 ML NEBU. CONT NEB ONE (18:15)
[2018-11-20] MEDS ORDERED: CALCIUM GLUCONATE 1,000 MG/10 ML VIAL. IVP ONE (18:15)
[2018-11-20] MEDS ORDERED: DEXTROSE 50% 25 GM / 50ML DISP.SYRIN. IV ONE (18:15)
[2018-11-20] MEDS ORDERED: ONDANSETRON PF 4 MG/2 ML VIAL. IV PRN (18:45)
[2018-11-20] MEDS ORDERED: cloNIDine HCL 0.1 MG TABLET PO ONE (19:00)
--- NOTE | 2018-11-20 20:14 | RAD ---
Single view chest 11/20/2017 CLINICAL INDICATION: Weakness and shortness of breath. COMPARISON: Chest 10/25/2017 FINDINGS: Cardiac and mediastinal silhouettes are unremarkable. No pleural effusion, pneumothorax or focal consolidation. IMPRESSION: No acute cardiopulmonary abnormality. Electronically signed by: Silvio Mohr MD (11/20/2018 8:11 PM) [facility]
--- NOTE | 2018-11-20 20:30 | NUR ---
Patient admitted from ER per w/c with ARF and hyperkalemia, K+ 9.3, BP 200/90. Patient missed dialysis on Wed, but did show for Wednesday. Patients belonging with family. Patient oriented to ICU routine, nursing call light, TV/ bed controls, side rail policies, diet and activity. Dr Reyes at BS 2030 notified of elevated BP orders received for Hydralazine 10 mg IVP prn q 4hrs. Dialysis nurse at to start dialysis.
[2018-11-20] MEDS ORDERED: IV NORMAL SALINE 1000ML BAG 1,000 ML IV PRN ×2 (20:37)
[2018-11-20] MEDS ORDERED: DIALYSIS PATIENT. MC PRN ×2 (20:45)
[2018-11-20] MEDS ORDERED: LIDOCAINE 1% PF 2 ML VIAL. INJ ONE (20:45)
--- NOTE | 2018-11-20 21:19 | PDOC1 ---
History and Physical Date of Admission Date of Admission DATE: 11/20/18 TIME: 21:14 Source Source: Caregiver, Chart review History of Present Illness History of Present Illness Mr. Savage is a 63 year old male admit with waekness and lethargy, worse over a few days. he went to dialysis wednesday and has been feeling well before the past few days. Patient states at times he gets lightheaded and when he stands up it hurts when he also feels like he is "off". he reports he has been eating more bananas and oranges lately, but avoiding dairy as he is trying to stick to the renal diet, he has used powdered milk, ads water and uses that in his wheaties Past Medical History Cardiovascular: HTN Pulmonary: No pertinent hx CENTRAL NERVOUS SYSTEM: Other GI: No pertinent hx Heme/Onc: Anemia NOS, Other Hepatobiliary: Hep A/B/C Psych: No pertinent hx Musculoskeletal: Osteoarthritis Rheumatologic: No pertinent hx Infectious disease: HIV Renal/: Chronic renal insuff, Hematuria Endocrine: Diabetes Past Surgical History Past Surgical History: Cholecystectomy, Colectomy Family History Family History: Diabetes Social History Smoke: No ALCOHOL: occassional Drugs: Cocaine, Crystal meth Current Medications Current Medications Current Medications Calcium Gluconate (Calcium Gluconate) 1,000 mg 1X ONCE IVP Last administered on 11/20/18at 18:31; Start 11/20/18 at 18:15; Stop 11/20/18 at 18:16; Status DC Sodium Bicarbonate (Sodium Bicarb Adult 8.4% Syr) 50 meq 1X ONCE IV Last administered on 11/20/18at 18:33; Start 11/20/18 at 18:15; Stop 11/20/18 at 18:16 ; Status DC Dextrose (Dextrose 50%-Water Syringe) 25 gm 1X ONCE IV Last administered on at 18:37; Start 11/20/18 at 18:15; Stop 11/20/18 at 18:16; Status DC Insulin Human Regular (HumuLIN R VIAL) 10 unit 1X ONCE IV Last administered on 11/20/18at 18:36; Start 11/20/18 at 18:15; Stop 11/20/18 at 18:16; Status DC Albuterol Sulfate (Ventolin Neb Soln) 20 mg 1X ONCE CONT NEB Last administered on 11/20/18at 18:48; Start 11/20/18 at 18:15; Stop 11/20/18 at 18:16 ; Status DC Ondansetron HCl (Zofran) 4 mg PRN Q8HRS PRN IV NAUSEA/VOMITING; Start 11/20/18 at 18:45; Stop 11/21/18 at 18:44 Clonidine HCl (Catapres) 0.1 mg 1X ONCE PO Last administered on 11/20/18at 19: 01; Start 11/20/18 at 19:00; Stop 11/20/18 at 19:01; Status DC Sodium Chloride 1,000 ml @ 1,000 mls/hr Q1H PRN IV hypotension; Start 11/20/18 at 20:37; Stop 11/21/18 at 02:36 Sodium Chloride 1,000 ml @ 400 mls/hr Q2H30M PRN IV PATENCY; Start 11/20/18 at 20:37; Stop 11/21/18 at 08:36 Info (PHARMACY MONITORING -- do not chart) 1 each PRN DAILY PRN MC SEE COMMENTS ; Start 11/20/18 at 20:45; Status UNV Info (PHARMACY MONITORING -- do not chart) 1 each PRN DAILY PRN MC SEE COMMENTS ; Start 11/20/18 at 20:45 Lidocaine HCl (Xylocaine-Mpf 1% 2ml Vial) 2 ml 1X ONCE INJ ; Start 11/20/18 at 20:45; Stop 11/20/18 at 20:46; Status DC Active Scripts Active Reported Warfarin Sodium 10 Mg Tablet 10 Mg PO QSU Warfarin Sodium 5 Mg Tablet 5 Mg PO QSA Warfarin Sodium 5 Mg Tablet 5 Mg PO QM-F Furosemide 80 Mg Tablet 80 Mg PO DAILY Amlodipine Besylate 10 Mg Tablet 10 Mg PO DAILY Humalog (Insulin Lispro) 100 Unit/1 Ml Cartridge 10 Unit SQ TIDWMEALS Ferrous Sulfate 325 Mg Tablet 1 Tab PO QMWF Gabapentin (Gabapentin) 300 Mg Capsule 2 Cap PO PRN DAILY PRN Allergies Allergies: Coded Allergies: prednisone (Verified Allergy, Unknown, 10/23/17) PT STATES LEG BECAME SWOLLEN FROM TAKING AND GOT A BLOOD CLOT ROS General: YES: Fatigue, Malaise, Appetite; No: Chills, Night Sweats, Other PSYCHOLOGICAL ROS: No: Anxiety, Behavioral Disorder, Concentration difficultie , Decreased libido, Depression, Disorientation, Hallucinations, Hostility, Irritablity, Memory difficulties, Mood Swings, Obsessive thoughts, Other Eyes: No Blurry vision, No Decreased vision, No Double vision, No Dry eyes, No Excessive tearing, No Eye Pain, No Itchy Eyes, No Loss of vision, No Photophobia , No Scotomata, No Uses contacts, No Uses glasses, No Other HEENT: YES: Heacaches Respiratory: No: Cough, Hemoptysis, Orthopnea, Pleuritic Pain, Shortness of breath, SOB with excertion, Sputum Changes, Stridor, Tachypnea, Wheezing, Other Cardiovascular: No Chest Pain, No Palpitations, No Orthopnea, No Paroxysmal Noc. Dyspnea, No Edema, No Lt Headedness, No Other Gastrointestinal: No Nausea, No Vomiting, No Abdominal Pain, No Diarrhea, No Constipation, No Melena, No Hematochezia, No Other Genitourinary: No Dysuria, No Frequency, No Incontinence, No Hematuria, No Retention, No Discharge, No Urgency, No Pain, No Flank Pain, No Other, No , No , No , No , No , No , No Musculoskeletal: Yes Muscular Weakness; No Gait Disturbance, No Joint Pain, No Joint Stiffness, No Joint Swelling, No Muscle Pain, No Pain In:, No Swelling In:, No Other Neurological: No Behavorial Changes, No Bowel/Bladder ControlChng, No Confusion , No Dizziness, No Gait Disturbance, No Headaches, No Impaired Coord/balance, No Memory Loss, No Numbness/Tingling, No Seizures, No Speech Problems, No Tremors, No Visual Changes, No Weakness, No Other Skin: No Dry Skin, No Eczema, No Hair Changes, No Lumps, No Mole Changes, No Mottling, No Nail Changes, No Pruritus, No Rash, No Skin Lesion Changes, No Other, No Acne Physical Exam General: Alert, Oriented X3, Cooperative, No acute distress HEENT: Atraumatic, PERRLA, EOMI Lungs: Clear to auscultation Heart: S1S2, no gallops, no murmurs Abdomen: Normal bowel sounds, Soft Rectal Exam: not examined Extremities: No cyanosis, No edema, Normal pulses Skin: No breakdown Neuro: Normal gait, Normal tone, Sensation intact Psych/Mental Status: Mental status NL, Mood NL Vitals Vitals Vital Signs Date Time Temp Pulse Resp B/P (MAP) Pulse Ox O2 Delivery O2 Flow Rate FiO2 11/20/18 19:01 86 203/124 11/20/18 19:00 20 99 11/20/18 18:50 Room Air 11/20/18 15:35 98.5 98.5 Labs Labs Laboratory Tests Test 11/20/18 16:25 11/20/18 18:44 White Blood Count 3.4 x10^3/uL (4.0-11.0) Red Blood Count 4.70 x10^6/uL (4.30-5.70) Hemoglobin 12.3 g/dL (13.0-17.5) Hematocrit 39.0 % (39.0-53.0) Mean Corpuscular Volume 83 fL (79-100) Mean Corpuscular Hemoglobin 26 pg (25-35) Mean Corpuscular Hemoglobin Concent 32 g/dL (31-37) Red Cell Distribution Width 15.0 % (11.5-14.5) Platelet Count 100 x10^3/uL (140-400) Neutrophils (%) (Auto) 56 % (31-73) Lymphocytes (%) (Auto) 27 % (24-48) Monocytes (%) (Auto) 13 % (0-9) Eosinophils (%) (Auto) 3 % (0-3) Basophils (%) (Auto) 1 % (0-3) Neutrophils # (Auto) 1.9 x10^3uL (1.8-7.7) Lymphocytes # (Auto) 0.9 x10^3/uL (1.0-4.8) Monocytes # (Auto) 0.4 x10^3/uL (0.0-1.1) Eosinophils # (Auto) 0.1 x10^3/uL (0.0-0.7) Basophils # (Auto) 0.0 x10^3/uL (0.0-0.2) Sodium Level 140 mmol/L (136-145) Potassium Level 9.3 mmol/L (3.5-5.1) Chloride Level 109 mmol/L (98-107) Carbon Dioxide Level 25 mmol/L (21-32) Anion Gap 6 (6-14) Blood Urea Nitrogen 39 mg/dL (8-26) Creatinine 7.0 mg/dL (0.7-1.3) Estimated GFR (Cockcroft-Gault) 9.7 BUN/Creatinine Ratio 6 (6-20) Glucose Level 183 mg/dL (70-99) Calcium Level 9.0 mg/dL (8.5-10.1) Total Bilirubin 0.2 mg/dL (0.2-1.0) Aspartate Amino Transf (AST/SGOT) 18 U/L (15-37) Alanine Aminotransferase (ALT/SGPT) 18 U/L (16-63) Alkaline Phosphatase 123 U/L (46-116) Troponin I Quantitative < 0.017 ng/mL (0.000-0.055) Total Protein 7.4 g/dL (6.4-8.2) Albumin 3.3 g/dL (3.4-5.0) Albumin/Globulin Ratio 0.8 (1.0-1.7) Glucose (Fingerstick) 215 mg/dL (70-99) Laboratory Tests Test 11/20/18 16:25 11/20/18 18:44 White Blood Count 3.4 x10^3/uL (4.0-11.0) Red Blood Count 4.70 x10^6/uL (4.30-5.70) Hemoglobin 12.3 g/dL (13.0-17.5) Hematocrit 39.0 % (39.0-53.0) Mean Corpuscular Volume 83 fL (79-100) Mean Corpuscular Hemoglobin 26 pg (25-35) Mean Corpuscular Hemoglobin Concent 32 g/dL (31-37) Red Cell Distribution Width 15.0 % (11.5-14.5) Platelet Count 100 x10^3/uL (140-400) Neutrophils (%) (Auto) 56 % (31-73) Lymphocytes (%) (Auto) 27 % (24-48) Monocytes (%) (Auto) 13 % (0-9) Eosinophils (%) (Auto) 3 % (0-3) Basophils (%) (Auto) 1 % (0-3) Neutrophils # (Auto) 1.9 x10^3uL (1.8-7.7) Lymphocytes # (Auto) 0.9 x10^3/uL (1.0-4.8) Monocytes # (Auto) 0.4 x10^3/uL (0.0-1.1) Eosinophils # (Auto) 0.1 x10^3/uL (0.0-0.7) Basophils # (Auto) 0.0 x10^3/uL (0.0-0.2) Sodium Level 140 mmol/L (136-145) Potassium Level 9.3 mmol/L (3.5-5.1) Chloride Level 109 mmol/L (98-107) Carbon Dioxide Level 25 mmol/L (21-32) Anion Gap 6 (6-14) Blood Urea Nitrogen 39 mg/dL (8-26) Creatinine 7.0 mg/dL (0.7-1.3) Estimated GFR (Cockcroft-Gault) 9.7 BUN/Creatinine Ratio 6 (6-20) Glucose Level 183 mg/dL (70-99) Calcium Level 9.0 mg/dL (8.5-10.1) Total Bilirubin 0.2 mg/dL (0.2-1.0) Aspartate Amino Transf (AST/SGOT) 18 U/L (15-37) Alanine Aminotransferase (ALT/SGPT) 18 U/L (16-63) Alkaline Phosphatase 123 U/L (46-116) Troponin I Quantitative < 0.017 ng/mL (0.000-0.055) Total Protein 7.4 g/dL (6.4-8.2) Albumin 3.3 g/dL (3.4-5.0) Albumin/Globulin Ratio 0.8 (1.0-1.7) Glucose (Fingerstick) 215 mg/dL (70-99) VTE Prophylaxis Ordered VTE Prophylaxis Devices: Yes VTE Pharmacological Prophylaxi: Yes Assessment/Plan Assessment/Plan weakness, lethargy acute critical hyperkalemia, meds given in ER admti to ICU, hemodialysis ERVIN Chapman MD Nov 20, 2018 21:19
[2018-11-20] MEDS ORDERED: DEXTROSE 50% 25 GM / 50ML DISP.SYRIN. IV PRN (21:30)
[2018-11-20] MEDS ORDERED: WARF-31 PO (21:43)
[2018-11-20] MEDS ORDERED: hydrALAZINE 20 MG/ML VIAL. IVP PRN (21:45)
[2018-11-21] VITALS (17 sets, daily range): BP systolic 92–139; BP diastolic 56–78
--- NOTE | 2018-11-21 00:15 | NUR ---
Patient requesting sleeping pill and Imodium for loose stools. Dr Eric hugo, orders received for Ambien 5 mg po qhs prn and Imodium PRN loose stools.
[2018-11-21] MEDS ORDERED: DIPHENOXYLATE/ATROPINE TABLET. PO PRN (00:30)
[2018-11-21] MEDS: ZOLPIDEM 5 MG TABLET. PO PRN ×2 (00:43→21:07)
--- NOTE | 2018-11-21 07:16 | EKG ---
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
[2018-11-21] MEDS: INSULIN LISPRO 300 UNITS/3 ML INSULN.PEN. SQ SCH ×5 (07:31→18:21)
[2018-11-21] MEDS ORDERED: FERROUS SULFATE 325 MG TABLET. PO SCH (09:00)
[2018-11-21 09:19] LABS: BASO % 1 % (0-3); EOS # 0.1 x10^3/uL (0.0-0.7); EOS % 2 % (0-3); HEMATOCRIT 34.4 % (39.0-53.0); LYMPH % 25 % (24-48); MEAN CORPUSCULAR HEMOGLOBIN 26 pg (25-35); MEAN CORPUSCULAR HGB CONC 32 g/dL (31-37); MEAN CORPUSCULAR VOLUME 82 fL (79-100); MONO # 0.5 x10^3/uL (0.0-1.1); MONO % 12 % (0-9); NEUT # 2.6 x10^3uL (1.8-7.7); NEUT % 61 % (31-73); PLATELET COUNT 91 x10^3/uL (140-400); RED BLOOD COUNT 4.19 x10^6/uL (4.30-5.70); RED CELL DISTRIBUTION WIDTH 15.1 % (11.5-14.5); WHITE BLOOD COUNT 4.2 x10^3/uL (4.0-11.0)
[2018-11-21] MEDS ORDERED: ACETAMINOPHEN 325 MG TABLET. PO PRN (09:30)
[2018-11-21 09:42] LABS: ALBUMIN 2.9 g/dL (3.4-5.0); ALBUMIN/GLOBULIN RATIO 0.8 (1.0-1.7); CALCIUM 8.2 mg/dL (8.5-10.1); CREATININE 5.9 mg/dL (0.7-1.3); GFR 11.8; MAGNESIUM 1.9 mg/dL (1.8-2.4); PHOSPHORUS 3.5 mg/dL (2.6-4.7); TOTAL BILIRUBIN 0.2 mg/dL (0.2-1.0); TOTAL PROTEIN 6.4 g/dL (6.4-8.2)
[2018-11-21 09:48] LABS: POTASSIUM 7.8 mmol/L (3.5-5.1)
[2018-11-21] MEDS: GABAPENTIN 300 MG CAPSULE. PO PRN (09:59)
[2018-11-21] MEDS: amLODIPine BESYLATE 10 MG TABLET PO SCH (09:59)
[2018-11-21 10:14] LABS: PROTHROMBIN TIME PATIENT 22.5 SEC (11.7-14.0)
[2018-11-21] MEDS ORDERED: INSU100I11 SQ (10:14)
--- NOTE | 2018-11-21 11:54 | PDOC2 ---
CONSULT Date of Consult Date of Consult DATE: 11/21/18 TIME: 11:49 Reason for Consult Reason for Consult: HIGH K Referring Physician Referring Physician: CHUYITA Identification/Chief Complaint Chief Complaint WEAK Source Source: Chart review, Patient History of Present Illness Reason for Visit: THIS IS A 63 YR OLD ESRD PT WITH GENERALIZED WEAKNESS. HE HAS ESRD AND ON OP HD ON MWF. HE WENT TO HD ON WED BUT HAD SKIPPED HIS TX ON WEDNESDAY. HE PRESENTED TO THE ER WITH WEAKNESS AND SOME DIZZINESS. WAS NOTED TO HAVE A K OF 9.3. STATED THAT HE HAD BEEN EATING BANANAS AND ORANGES. HAS ESRD DUE TO DM II AND HTN. LABS OTHERWISE ARE C/W ESRD. SURPRISINGLY NO BRADYCARDIA Past Medical History Cardiovascular: HTN Pulmonary: No pertinent hx CENTRAL NERVOUS SYSTEM: Other GI: No pertinent hx Heme/Onc: Anemia NOS, Other Hepatobiliary: Hep A/B/C Psych: No pertinent hx Musculoskeletal: Osteoarthritis Rheumatologic: No pertinent hx Infectious disease: HIV Renal/: Chronic renal insuff, Hematuria Endocrine: Diabetes, Hyperparathyroidism Past Surgical History Past Surgical History: Cholecystectomy, Colectomy Family History Family History: No Significant, Diabetes Social History No ALCOHOL: occassional Drugs: Cocaine, Crystal meth Lives: with Family Current Problem List Problem List Problems Medical Problems: (1) Hyperkalemia Status: Acute Current Medications Current Medications Current Medications Calcium Gluconate (Calcium Gluconate) 1,000 mg 1X ONCE IVP Last administered on 11/20/18at 18:31; Start 11/20/18 at 18:15; Stop 11/20/18 at 18:16; Status DC Sodium Bicarbonate (Sodium Bicarb Adult 8.4% Syr) 50 meq 1X ONCE IV Last administered on 11/20/18 18:33; Start 11/20/18 at 18:15; Stop 11/20/18 at 18:16 ; Status DC Dextrose (Dextrose 50%-Water Syringe) 25 gm 1X ONCE IV Last administered on 18:37; Start 11/20/18 at 18:15; Stop 11/20/18 at 18:16; Status DC Insulin Human Regular (HumuLIN R VIAL) 10 unit 1X ONCE IV Last administered on 11/20/18at 18:36; Start 11/20/18 at 18:15; Stop 11/20/18 at 18:16; Status DC Albuterol Sulfate (Ventolin Neb Soln) 20 mg 1X ONCE CONT NEB Last administered on 11/20/18at 18:48; Start 11/20/18 at 18:15; Stop 11/20/18 at 18:16 ; Status DC Ondansetron HCl (Zofran) 4 mg PRN Q8HRS PRN IV NAUSEA/VOMITING; Start 11/20/18 at 18:45; Stop 11/21/18 at 18:44 Clonidine HCl (Catapres) 0.1 mg 1X ONCE PO Last administered on 11/20/18at 19: 01; Start 11/20/18 at 19:00; Stop 11/20/18 at 19:01; Status DC Sodium Chloride 1,000 ml @ 1,000 mls/hr Q1H PRN IV hypotension; Start 11/20/18 at 20:37; Stop 11/21/18 at 02:36; Status DC Sodium Chloride 1,000 ml @ 400 mls/hr Q2H30M PRN IV PATENCY; Start 11/20/18 at 20:37; Stop 11/21/18 at 08:36; Status DC Info (PHARMACY MONITORING -- do not chart) 1 each PRN DAILY PRN MC SEE COMMENTS ; Start 11/20/18 at 20:45; Status UNV Info (PHARMACY MONITORING -- do not chart) 1 each PRN DAILY PRN MC SEE COMMENTS ; Start 11/20/18 at 20:45 Lidocaine HCl (Xylocaine-Mpf 1% 2ml Vial) 2 ml 1X ONCE INJ Last administered on 11/20/18at 20:50; Start 11/20/18 at 20:45; Stop 11/20/18 at 20:46; Status DC Insulin Human Lispro (HumaLOG) 0-7 UNITS TIDWMEALS SQ ; Start 11/21/18 at 08:00 Dextrose (Dextrose 50%-Water Syringe) 12.5 gm PRN Q15MIN PRN IV SEE COMMENTS; Start 11/20/18 at 21:30 Hydralazine HCl (Apresoline Inj) 10 mg PRN Q4HRS PRN IVP ELEVATED BP, SEE COMMENTS; Start 11/20/18 at 21:45 Zolpidem Tartrate (Ambien) 5 mg PRN QHS PRN PO INSOMNIA Last administered on at 00:43; Start 11/21/18 at 00:30 Diphenoxylate HCl/ Atropine (Lomotil) 1 tab PRN QID PRN PO DIARRHEA Last administered on 11/21/18at 00:43; Start 11/21/18 at 00:30 Amlodipine Besylate (Norvasc) 10 mg DAILY PO Last administered on 11/21/18at 09: 59; Start 11/21/18 at 10:00 Ferrous Sulfate (Feosol) 325 mg MoWeFr PO Last administered on 11/21/18at 09:59 ; Start 11/21/18 at 09:00 Furosemide (Lasix) 80 mg DAILY PO ; Start 11/21/18 at 10:00 Gabapentin (Neurontin) 600 mg PRN DAILY PRN PO NERVE PAIN Last administered on 11/21/18at 09:59; Start 11/21/18 at 09:30 Insulin Human Lispro (HumaLOG) 10 units TIDWMEALS SQ ; Start 11/21/18 at 12:00; Stop 11/21/18 at 12:00; Status DC Warfarin Sodium (Coumadin) 10 mg DAILY16 PO ; Start 11/21/18 at 16:00 Acetaminophen (Tylenol) 650 mg PRN Q6HRS PRN PO PAIN OR TEMP; Start 11/21/18 at 09:30 Insulin Human Lispro (HumaLOG) 8 units TIDWMEALS SQ ; Start 11/21/18 at 12:00 Warfarin Sodium (Coumadin Per Physician) 1 each PRN DAILY PRN MC SEE COMMENTS; Start 11/21/18 at 10:45 Active Scripts Active Reported Humalog (Insulin Lispro) 100 Unit/1 Ml Insuln.pen 8 Unit SQ TIDBFRMEAL Warfarin Sodium 5 Mg Tablet 2 Tab PO DAILY Furosemide 80 Mg Tablet 80 Mg PO DAILY Amlodipine Besylate 10 Mg Tablet 10 Mg PO DAILY Ferrous Sulfate 325 Mg Tablet 1 Tab PO QMWF Gabapentin (Gabapentin) 300 Mg Capsule 2 Cap PO PRN DAILY PRN Allergies Allergies: Coded Allergies: prednisone (Verified Allergy, Unknown, 10/23/17) PT STATES LEG BECAME SWOLLEN FROM TAKING AND GOT A BLOOD CLOT ROS General: YES: Fatigue, Appetite PSYCHOLOGICAL ROS: YES: Anxiety Eyes: Yes Decreased vision HEENT: YES: Heacaches Respiratory: YES: Cough, Shortness of breath Cardiovascular: yes Paroxysmal Noc. Dyspnea, yes Lt Headedness Gastrointestinal: Yes Constipation Genitourinary: YES Other (ANURIA) Musculoskeletal: Yes Muscular Weakness Neurological: Yes Weakness Skin: Yes Dry Skin Physical Exam General: Alert, Oriented X3, Cooperative, No acute distress, mild distress HEENT: Atraumatic, PERRLA, EOMI, Mucous membr. moist/pink Lungs: Clear to auscultation, Normal air movement Heart: Regular rate, Normal S1, Normal S2 Abdomen: Normal bowel sounds, Soft, No tenderness Extremities: No cyanosis Skin: No breakdown Neuro: Normal speech, Sensation intact Psych/Mental Status: Mental status NL, Mood NL MUSCULOSKELETAL: No joint tenderness, No deformity, No swelling Vitals VITALS Vital Signs Date Time Temp Pulse Resp B/P (MAP) Pulse Ox O2 Delivery O2 Flow Rate FiO2 11/21/18 11:00 77 14 106/64 (78) 99 Room Air 11/21/18 07:00 98.5 98.5 11/20/18 21:30 96.0 Labs Labs Laboratory Tests Test 11/20/18 16:25 11/20/18 18:44 11/20/18 22:50 11/21/18 09:05 White Blood Count 3.4 x10^3/uL (4.0-11.0) 4.2 x10^3/uL (4.0-11.0) Red Blood Count 4.70 x10^6/uL (4.30-5.70) 4.19 x10^6/uL (4.30-5.70) Hemoglobin 12.3 g/dL (13.0-17.5) 11.0 g/dL (13.0-17.5) Hematocrit 39.0 % (39.0-53.0) 34.4 % (39.0-53.0) Mean Corpuscular Volume 83 fL (79-100) 82 fL (79-100) Mean Corpuscular Hemoglobin 26 pg (25-35) 26 pg (25-35) Mean Corpuscular Hemoglobin Concent 32 g/dL (31-37) 32 g/dL (31-37) Red Cell Distribution Width 15.0 % (11.5-14.5) 15.1 % (11.5-14.5) Platelet Count 100 x10^3/uL (140-400) 91 x10^3/uL (140-400) Neutrophils (%) (Auto) 56 % (31-73) 61 % (31-73) Lymphocytes (%) (Auto) 27 % (24-48) 25 % (24-48) Monocytes (%) (Auto) 13 % (0-9) 12 % (0-9) Eosinophils (%) (Auto) 3 % (0-3) 2 % (0-3) Basophils (%) (Auto) 1 % (0-3) 1 % (0-3) Neutrophils # (Auto) 1.9 x10^3uL (1.8-7.7) 2.6 x10^3uL (1.8-7.7) Lymphocytes # (Auto) 0.9 x10^3/uL (1.0-4.8) 1.0 x10^3/uL (1.0-4.8) Monocytes # (Auto) 0.4 x10^3/uL (0.0-1.1) 0.5 x10^3/uL (0.0-1.1) Eosinophils # (Auto) 0.1 x10^3/uL (0.0-0.7) 0.1 x10^3/uL (0.0-0.7) Basophils # (Auto) 0.0 x10^3/uL (0.0-0.2) 0.0 x10^3/uL (0.0-0.2) Sodium Level 140 mmol/L (136-145) 137 mmol/L (136-145) Potassium Level 9.3 mmol/L (3.5-5.1) 7.8 mmol/L (3.5-5.1) Chloride Level 109 mmol/L (98-107) 102 mmol/L (98-107) Carbon Dioxide Level 25 mmol/L (21-32) 27 mmol/L (21-32) Anion Gap 6 (6-14) 8 (6-14) Blood Urea Nitrogen 39 mg/dL (8-26) 28 mg/dL (8-26) Creatinine 7.0 mg/dL (0.7-1.3) 5.9 mg/dL (0.7-1.3) Estimated GFR (Cockcroft-Gault) 9.7 11.8 BUN/Creatinine Ratio 6 (6-20) 5 (6-20) Glucose Level 183 mg/dL (70-99) 282 mg/dL (70-99) Calcium Level 9.0 mg/dL (8.5-10.1) 8.2 mg/dL (8.5-10.1) Total Bilirubin 0.2 mg/dL (0.2-1.0) 0.2 mg/dL (0.2-1.0) Aspartate Amino Transf (AST/SGOT) 18 U/L (15-37) 12 U/L (15-37) Alanine Aminotransferase (ALT/SGPT) 18 U/L (16-63) 15 U/L (16-63) Alkaline Phosphatase 123 U/L (46-116) 108 U/L (46-116) Troponin I Quantitative < 0.017 ng/mL (0.000-0.055) Total Protein 7.4 g/dL (6.4-8.2) 6.4 g/dL (6.4-8.2) Albumin 3.3 g/dL (3.4-5.0) 2.9 g/dL (3.4-5.0) Albumin/Globulin Ratio 0.8 (1.0-1.7) 0.8 (1.0-1.7) Glucose (Fingerstick) 215 mg/dL (70-99) 117 mg/dL (70-99) Prothrombin Time 22.5 SEC (11.7-14.0) Prothromb Time International Ratio 2.0 (0.8-1.1) Phosphorus Level 3.5 mg/dL (2.6-4.7) Magnesium Level 1.9 mg/dL (1.8-2.4) Laboratory Tests Test 11/20/18 16:25 11/20/18 18:44 11/20/18 22:50 11/21/18 09:05 White Blood Count 3.4 x10^3/uL (4.0-11.0) 4.2 x10^3/uL (4.0-11.0) Red Blood Count 4.70 x10^6/uL (4.30-5.70) 4.19 x10^6/uL (4.30-5.70) Hemoglobin 12.3 g/dL (13.0-17.5) 11.0 g/dL (13.0-17.5) Hematocrit 39.0 % (39.0-53.0) 34.4 % (39.0-53.0) Mean Corpuscular Volume 83 fL (79-100) 82 fL (79-100) Mean Corpuscular Hemoglobin 26 pg (25-35) 26 pg (25-35) Mean Corpuscular Hemoglobin Concent 32 g/dL (31-37) 32 g/dL (31-37) Red Cell Distribution Width 15.0 % (11.5-14.5) 15.1 % (11.5-14.5) Platelet Count 100 x10^3/uL (140-400) 91 x10^3/uL (140-400) Neutrophils (%) (Auto) 56 % (31-73) 61 % (31-73) Lymphocytes (%) (Auto) 27 % (24-48) 25 % (24-48) Monocytes (%) (Auto) 13 % (0-9) 12 % (0-9) Eosinophils (%) (Auto) 3 % (0-3) 2 % (0-3) Basophils (%) (Auto) 1 % (0-3) 1 % (0-3) Neutrophils # (Auto) 1.9 x10^3uL (1.8-7.7) 2.6 x10^3uL (1.8-7.7) Lymphocytes # (Auto) 0.9 x10^3/uL (1.0-4.8) 1.0 x10^3/uL (1.0-4.8) Monocytes # (Auto) 0.4 x10^3/uL (0.0-1.1) 0.5 x10^3/uL (0.0-1.1) Eosinophils # (Auto) 0.1 x10^3/uL (0.0-0.7) 0.1 x10^3/uL (0.0-0.7) Basophils # (Auto) 0.0 x10^3/uL (0.0-0.2) 0.0 x10^3/uL (0.0-0.2) Sodium Level 140 mmol/L (136-145) 137 mmol/L (136-145) Potassium Level 9.3 mmol/L (3.5-5.1) 7.8 mmol/L (3.5-5.1) Chloride Level 109 mmol/L (98-107) 102 mmol/L (98-107) Carbon Dioxide Level 25 mmol/L (21-32) 27 mmol/L (21-32) Anion Gap 6 (6-14) 8 (6-14) Blood Urea Nitrogen 39 mg/dL (8-26) 28 mg/dL (8-26) Creatinine 7.0 mg/dL (0.7-1.3) 5.9 mg/dL (0.7-1.3) Estimated GFR (Cockcroft-Gault) 9.7 11.8 BUN/Creatinine Ratio 6 (6-20) 5 (6-20) Glucose Level 183 mg/dL (70-99) 282 mg/dL (70-99) Calcium Level 9.0 mg/dL (8.5-10.1) 8.2 mg/dL (8.5-10.1) Total Bilirubin 0.2 mg/dL (0.2-1.0) 0.2 mg/dL (0.2-1.0) Aspartate Amino Transf (AST/SGOT) 18 U/L (15-37) 12 U/L (15-37) Alanine Aminotransferase (ALT/SGPT) 18 U/L (16-63) 15 U/L (16-63) Alkaline Phosphatase 123 U/L (46-116) 108 U/L (46-116) Troponin I Quantitative < 0.017 ng/mL (0.000-0.055) Total Protein 7.4 g/dL (6.4-8.2) 6.4 g/dL (6.4-8.2) Albumin 3.3 g/dL (3.4-5.0) 2.9 g/dL (3.4-5.0) Albumin/Globulin Ratio 0.8 (1.0-1.7) 0.8 (1.0-1.7) Glucose (Fingerstick) 215 mg/dL (70-99) 117 mg/dL (70-99) Prothrombin Time 22.5 SEC (11.7-14.0) Prothromb Time International Ratio 2.0 (0.8-1.1) Phosphorus Level 3.5 mg/dL (2.6-4.7) Magnesium Level 1.9 mg/dL (1.8-2.4) Assessment/Plan Assessment/Plan IMP SEVERE LIFE THREATENING HYPERKALEMIA GENERALIZED WEAKNESS NON COMPLIANCE ESRD DM II HTN ANEMIA PLAN EMERGENT HD DONE LAST NIGHT HD AGAIN THIS AM WITH LOW K DIALYSATE AND UF TO DW ENCOURAGE COMPLIANCE WILL FOLLOW MARTINEZ JENSEN MD Nov 21, 2018 11:54
[2018-11-21] MEDS ORDERED: IV NORMAL SALINE 1000ML BAG 1,000 ML IV PRN ×2 (11:59)
[2018-11-21] MEDS ORDERED: INSULIN LISPRO 300 UNITS/3 ML INSULN.PEN. SQ SCH (12:00)
[2018-11-21] MEDS ORDERED: DIALYSIS PATIENT. MC PRN ×2 (12:00)
--- NOTE | 2018-11-21 13:34 | PDOC ---
PROGRESS NOTES Chief Complaint Chief Complaint Acute hyperkalemia secondary to dietary transgression ESRD on HD Essential hypertension Diabetes mellitus type 2 insulin requiring History of polysubstance abuse Plan: Dialysis as per care consultant He may be moved to a telemetry floor Resume home medications Renal diet Further recommendations based on the clinical course History of Present Illness History of Present Illness She'll in no acute events reported overnight. The patient denies chest pain palpitations no shortness of breath has been reported tachycardia has improved Vitals Vitals Vital Signs Date Time Temp Pulse Resp B/P (MAP) Pulse Ox O2 Delivery O2 Flow Rate FiO2 11/21/18 12:00 98.6 83 12 104/60 (75) 99 Room Air 98.6 11/20/18 21:30 96.0 Physical Exam General: Alert, Oriented X3, Cooperative, No acute distress, mild distress Heart: Regular rate, Normal S1, Normal S2 Lungs: Clear Abdomen: Normal bowel sounds, Soft, No tenderness Extremities: No cyanosis Skin: No breakdown Labs LABS Laboratory Tests Test 11/20/18 16:25 11/20/18 18:44 11/20/18 22:50 11/21/18 09:05 White Blood Count 3.4 x10^3/uL (4.0-11.0) 4.2 x10^3/uL (4.0-11.0) Red Blood Count 4.70 x10^6/uL (4.30-5.70) 4.19 x10^6/uL (4.30-5.70) Hemoglobin 12.3 g/dL (13.0-17.5) 11.0 g/dL (13.0-17.5) Hematocrit 39.0 % (39.0-53.0) 34.4 % (39.0-53.0) Mean Corpuscular Volume 83 fL (79-100) 82 fL (79-100) Mean Corpuscular Hemoglobin 26 pg (25-35) 26 pg (25-35) Mean Corpuscular Hemoglobin Concent 32 g/dL (31-37) 32 g/dL (31-37) Red Cell Distribution Width 15.0 % (11.5-14.5) 15.1 % (11.5-14.5) Platelet Count 100 x10^3/uL (140-400) 91 x10^3/uL (140-400) Neutrophils (%) (Auto) 56 % (31-73) 61 % (31-73) Lymphocytes (%) (Auto) 27 % (24-48) 25 % (24-48) Monocytes (%) (Auto) 13 % (0-9) 12 % (0-9) Eosinophils (%) (Auto) 3 % (0-3) 2 % (0-3) Basophils (%) (Auto) 1 % (0-3) 1 % (0-3) Neutrophils # (Auto) 1.9 x10^3uL (1.8-7.7) 2.6 x10^3uL (1.8-7.7) Lymphocytes # (Auto) 0.9 x10^3/uL (1.0-4.8) 1.0 x10^3/uL (1.0-4.8) Monocytes # (Auto) 0.4 x10^3/uL (0.0-1.1) 0.5 x10^3/uL (0.0-1.1) Eosinophils # (Auto) 0.1 x10^3/uL (0.0-0.7) 0.1 x10^3/uL (0.0-0.7) Basophils # (Auto) 0.0 x10^3/uL (0.0-0.2) 0.0 x10^3/uL (0.0-0.2) Sodium Level 140 mmol/L (136-145) 137 mmol/L (136-145) Potassium Level 9.3 mmol/L (3.5-5.1) 7.8 mmol/L (3.5-5.1) Chloride Level 109 mmol/L (98-107) 102 mmol/L (98-107) Carbon Dioxide Level 25 mmol/L (21-32) 27 mmol/L (21-32) Anion Gap 6 (6-14) 8 (6-14) Blood Urea Nitrogen 39 mg/dL (8-26) 28 mg/dL (8-26) Creatinine 7.0 mg/dL (0.7-1.3) 5.9 mg/dL (0.7-1.3) Estimated GFR (Cockcroft-Gault) 9.7 11.8 BUN/Creatinine Ratio 6 (6-20) 5 (6-20) Glucose Level 183 mg/dL (70-99) 282 mg/dL (70-99) Calcium Level 9.0 mg/dL (8.5-10.1) 8.2 mg/dL (8.5-10.1) Total Bilirubin 0.2 mg/dL (0.2-1.0) 0.2 mg/dL (0.2-1.0) Aspartate Amino Transf (AST/SGOT) 18 U/L (15-37) 12 U/L (15-37) Alanine Aminotransferase (ALT/SGPT) 18 U/L (16-63) 15 U/L (16-63) Alkaline Phosphatase 123 U/L (46-116) 108 U/L (46-116) Troponin I Quantitative < 0.017 ng/mL (0.000-0.055) Total Protein 7.4 g/dL (6.4-8.2) 6.4 g/dL (6.4-8.2) Albumin 3.3 g/dL (3.4-5.0) 2.9 g/dL (3.4-5.0) Albumin/Globulin Ratio 0.8 (1.0-1.7) 0.8 (1.0-1.7) Glucose (Fingerstick) 215 mg/dL (70-99) 117 mg/dL (70-99) Prothrombin Time 22.5 SEC (11.7-14.0) Prothromb Time International Ratio 2.0 (0.8-1.1) Phosphorus Level 3.5 mg/dL (2.6-4.7) Magnesium Level 1.9 mg/dL (1.8-2.4) Test 11/21/18 12:04 Glucose (Fingerstick) 125 mg/dL (70-99) Review of Systems Review of Systems Positive respiratory failure otherwise 14 point review of system is negative Assessment and Plan Assessmemt and Plan Problems Medical Problems: (1) Hyperkalemia Status: Acute Comment Review of Relevant I have reviewed the following items keron (where applicable) has been applied. Labs Laboratory Tests Test 11/20/18 16:25 11/20/18 18:44 11/20/18 22:50 11/21/18 09:05 White Blood Count 3.4 x10^3/uL (4.0-11.0) 4.2 x10^3/uL (4.0-11.0) Red Blood Count 4.70 x10^6/uL (4.30-5.70) 4.19 x10^6/uL (4.30-5.70) Hemoglobin 12.3 g/dL (13.0-17.5) 11.0 g/dL (13.0-17.5) Hematocrit 39.0 % (39.0-53.0) 34.4 % (39.0-53.0) Mean Corpuscular Volume 83 fL (79-100) 82 fL (79-100) Mean Corpuscular Hemoglobin 26 pg (25-35) 26 pg (25-35) Mean Corpuscular Hemoglobin Concent 32 g/dL (31-37) 32 g/dL (31-37) Red Cell Distribution Width 15.0 % (11.5-14.5) 15.1 % (11.5-14.5) Platelet Count 100 x10^3/uL (140-400) 91 x10^3/uL (140-400) Neutrophils (%) (Auto) 56 % (31-73) 61 % (31-73) Lymphocytes (%) (Auto) 27 % (24-48) 25 % (24-48) Monocytes (%) (Auto) 13 % (0-9) 12 % (0-9) Eosinophils (%) (Auto) 3 % (0-3) 2 % (0-3) Basophils (%) (Auto) 1 % (0-3) 1 % (0-3) Neutrophils # (Auto) 1.9 x10^3uL (1.8-7.7) 2.6 x10^3uL (1.8-7.7) Lymphocytes # (Auto) 0.9 x10^3/uL (1.0-4.8) 1.0 x10^3/uL (1.0-4.8) Monocytes # (Auto) 0.4 x10^3/uL (0.0-1.1) 0.5 x10^3/uL (0.0-1.1) Eosinophils # (Auto) 0.1 x10^3/uL (0.0-0.7) 0.1 x10^3/uL (0.0-0.7) Basophils # (Auto) 0.0 x10^3/uL (0.0-0.2) 0.0 x10^3/uL (0.0-0.2) Sodium Level 140 mmol/L (136-145) 137 mmol/L (136-145) Potassium Level 9.3 mmol/L (3.5-5.1) 7.8 mmol/L (3.5-5.1) Chloride Level 109 mmol/L (98-107) 102 mmol/L (98-107) Carbon Dioxide Level 25 mmol/L (21-32) 27 mmol/L (21-32) Anion Gap 6 (6-14) 8 (6-14) Blood Urea Nitrogen 39 mg/dL (8-26) 28 mg/dL (8-26) Creatinine 7.0 mg/dL (0.7-1.3) 5.9 mg/dL (0.7-1.3) Estimated GFR (Cockcroft-Gault) 9.7 11.8 BUN/Creatinine Ratio 6 (6-20) 5 (6-20) Glucose Level 183 mg/dL (70-99) 282 mg/dL (70-99) Calcium Level 9.0 mg/dL (8.5-10.1) 8.2 mg/dL (8.5-10.1) Total Bilirubin 0.2 mg/dL (0.2-1.0) 0.2 mg/dL (0.2-1.0) Aspartate Amino Transf (AST/SGOT) 18 U/L (15-37) 12 U/L (15-37) Alanine Aminotransferase (ALT/SGPT) 18 U/L (16-63) 15 U/L (16-63) Alkaline Phosphatase 123 U/L (46-116) 108 U/L (46-116) Troponin I Quantitative < 0.017 ng/mL (0.000-0.055) Total Protein 7.4 g/dL (6.4-8.2) 6.4 g/dL (6.4-8.2) Albumin 3.3 g/dL (3.4-5.0) 2.9 g/dL (3.4-5.0) Albumin/Globulin Ratio 0.8 (1.0-1.7) 0.8 (1.0-1.7) Glucose (Fingerstick) 215 mg/dL (70-99) 117 mg/dL (70-99) Prothrombin Time 22.5 SEC (11.7-14.0) Prothromb Time International Ratio 2.0 (0.8-1.1) Phosphorus Level 3.5 mg/dL (2.6-4.7) Magnesium Level 1.9 mg/dL (1.8-2.4) Test 11/21/18 12:04 Glucose (Fingerstick) 125 mg/dL (70-99) Laboratory Tests Test 11/20/18 16:25 11/20/18 18:44 11/20/18 22:50 11/21/18 09:05 White Blood Count 3.4 x10^3/uL (4.0-11.0) 4.2 x10^3/uL (4.0-11.0) Red Blood Count 4.70 x10^6/uL (4.30-5.70) 4.19 x10^6/uL (4.30-5.70) Hemoglobin 12.3 g/dL (13.0-17.5) 11.0 g/dL (13.0-17.5) Hematocrit 39.0 % (39.0-53.0) 34.4 % (39.0-53.0) Mean Corpuscular Volume 83 fL (79-100) 82 fL (79-100) Mean Corpuscular Hemoglobin 26 pg (25-35) 26 pg (25-35) Mean Corpuscular Hemoglobin Concent 32 g/dL (31-37) 32 g/dL (31-37) Red Cell Distribution Width 15.0 % (11.5-14.5) 15.1 % (11.5-14.5) Platelet Count 100 x10^3/uL (140-400) 91 x10^3/uL (140-400) Neutrophils (%) (Auto) 56 % (31-73) 61 % (31-73) Lymphocytes (%) (Auto) 27 % (24-48) 25 % (24-48) Monocytes (%) (Auto) 13 % (0-9) 12 % (0-9) Eosinophils (%) (Auto) 3 % (0-3) 2 % (0-3) Basophils (%) (Auto) 1 % (0-3) 1 % (0-3) Neutrophils # (Auto) 1.9 x10^3uL (1.8-7.7) 2.6 x10^3uL (1.8-7.7) Lymphocytes # (Auto) 0.9 x10^3/uL (1.0-4.8) 1.0 x10^3/uL (1.0-4.8) Monocytes # (Auto) 0.4 x10^3/uL (0.0-1.1) 0.5 x10^3/uL (0.0-1.1) Eosinophils # (Auto) 0.1 x10^3/uL (0.0-0.7) 0.1 x10^3/uL (0.0-0.7) Basophils # (Auto) 0.0 x10^3/uL (0.0-0.2) 0.0 x10^3/uL (0.0-0.2) Sodium Level 140 mmol/L (136-145) 137 mmol/L (136-145) Potassium Level 9.3 mmol/L (3.5-5.1) 7.8 mmol/L (3.5-5.1) Chloride Level 109 mmol/L (98-107) 102 mmol/L (98-107) Carbon Dioxide Level 25 mmol/L (21-32) 27 mmol/L (21-32) Anion Gap 6 (6-14) 8 (6-14) Blood Urea Nitrogen 39 mg/dL (8-26) 28 mg/dL (8-26) Creatinine 7.0 mg/dL (0.7-1.3) 5.9 mg/dL (0.7-1.3) Estimated GFR (Cockcroft-Gault) 9.7 11.8 BUN/Creatinine Ratio 6 (6-20) 5 (6-20) Glucose Level 183 mg/dL (70-99) 282 mg/dL (70-99) Calcium Level 9.0 mg/dL (8.5-10.1) 8.2 mg/dL (8.5-10.1) Total Bilirubin 0.2 mg/dL (0.2-1.0) 0.2 mg/dL (0.2-1.0) Aspartate Amino Transf (AST/SGOT) 18 U/L (15-37) 12 U/L (15-37) Alanine Aminotransferase (ALT/SGPT) 18 U/L (16-63) 15 U/L (16-63) Alkaline Phosphatase 123 U/L (46-116) 108 U/L (46-116) Troponin I Quantitative < 0.017 ng/mL (0.000-0.055) Total Protein 7.4 g/dL (6.4-8.2) 6.4 g/dL (6.4-8.2) Albumin 3.3 g/dL (3.4-5.0) 2.9 g/dL (3.4-5.0) Albumin/Globulin Ratio 0.8 (1.0-1.7) 0.8 (1.0-1.7) Glucose (Fingerstick) 215 mg/dL (70-99) 117 mg/dL (70-99) Prothrombin Time 22.5 SEC (11.7-14.0) Prothromb Time International Ratio 2.0 (0.8-1.1) Phosphorus Level 3.5 mg/dL (2.6-4.7) Magnesium Level 1.9 mg/dL (1.8-2.4) Test 11/21/18 12:04 Glucose (Fingerstick) 125 mg/dL (70-99) Medications Current Medications Calcium Gluconate (Calcium Gluconate) 1,000 mg 1X ONCE IVP Last administered on 11/20/18 18:31; Start 11/20/18 at 18:15; Stop 11/20/18 at 18:16; Status DC Sodium Bicarbonate (Sodium Bicarb Adult 8.4% Syr) 50 meq 1X ONCE IV Last administered on 11/20/18 18:33; Start 11/20/18 at 18:15; Stop 11/20/18 at 18:16 ; Status DC Dextrose (Dextrose 50%-Water Syringe) 25 gm 1X ONCE IV Last administered on 18:37; Start 11/20/18 at 18:15; Stop 11/20/18 at 18:16; Status DC Insulin Human Regular (HumuLIN R VIAL) 10 unit 1X ONCE IV Last administered on 11/20/18 18:36; Start 11/20/18 at 18:15; Stop 11/20/18 at 18:16; Status DC Albuterol Sulfate (Ventolin Neb Soln) 20 mg 1X ONCE CONT NEB Last administered on 11/20/18at 18:48; Start 11/20/18 at 18:15; Stop 11/20/18 at 18:16 ; Status DC Ondansetron HCl (Zofran) 4 mg PRN Q8HRS PRN IV NAUSEA/VOMITING; Start 11/20/18 at 18:45; Stop 11/21/18 at 18:44 Clonidine HCl (Catapres) 0.1 mg 1X ONCE PO Last administered on 11/20/18at 19: 01; Start 11/20/18 at 19:00; Stop 11/20/18 at 19:01; Status DC Sodium Chloride 1,000 ml @ 1,000 mls/hr Q1H PRN IV hypotension; Start 11/20/18 at 20:37; Stop 11/21/18 at 02:36; Status DC Sodium Chloride 1,000 ml @ 400 mls/hr Q2H30M PRN IV PATENCY; Start 11/20/18 at 20:37; Stop 11/21/18 at 08:36; Status DC Info (PHARMACY MONITORING -- do not chart) 1 each PRN DAILY PRN MC SEE COMMENTS ; Start 11/20/18 at 20:45; Status UNV Info (PHARMACY MONITORING -- do not chart) 1 each PRN DAILY PRN MC SEE COMMENTS ; Start 11/20/18 at 20:45 Lidocaine HCl (Xylocaine-Mpf 1% 2ml Vial) 2 ml 1X ONCE INJ Last administered on 11/20/18at 20:50; Start 11/20/18 at 20:45; Stop 11/20/18 at 20:46; Status DC Insulin Human Lispro (HumaLOG) 0-7 UNITS TIDWMEALS SQ ; Start 11/21/18 at 08:00 Dextrose (Dextrose 50%-Water Syringe) 12.5 gm PRN Q15MIN PRN IV SEE COMMENTS; Start 11/20/18 at 21:30 Hydralazine HCl (Apresoline Inj) 10 mg PRN Q4HRS PRN IVP ELEVATED BP, SEE COMMENTS; Start 11/20/18 at 21:45 Zolpidem Tartrate (Ambien) 5 mg PRN QHS PRN PO INSOMNIA Last administered on at 00:43; Start 11/21/18 at 00:30 Diphenoxylate HCl/ Atropine (Lomotil) 1 tab PRN QID PRN PO DIARRHEA Last administered on 11/21/18at 00:43; Start 11/21/18 at 00:30 Amlodipine Besylate (Norvasc) 10 mg DAILY PO Last administered on 11/21/18at 09: 59; Start 11/21/18 at 10:00 Ferrous Sulfate (Feosol) 325 mg MoWeFr PO Last administered on 11/21/18at 09:59 ; Start 11/21/18 at 09:00 Furosemide (Lasix) 80 mg DAILY PO ; Start 11/21/18 at 10:00 Gabapentin (Neurontin) 600 mg PRN DAILY PRN PO NERVE PAIN Last administered on 11/21/18at 09:59; Start 11/21/18 at 09:30 Insulin Human Lispro (HumaLOG) 10 units TIDWMEALS SQ ; Start 11/21/18 at 12:00; Stop 11/21/18 at 12:00; Status DC Warfarin Sodium (Coumadin) 10 mg DAILY16 PO ; Start 11/21/18 at 16:00 Acetaminophen (Tylenol) 650 mg PRN Q6HRS PRN PO PAIN OR TEMP; Start 11/21/18 at 09:30 Insulin Human Lispro (HumaLOG) 8 units TIDWMEALS SQ ; Start 11/21/18 at 12:00 Warfarin Sodium (Coumadin Per Physician) 1 each PRN DAILY PRN MC SEE COMMENTS; Start 11/21/18 at 10:45 Sodium Chloride 1,000 ml @ 1,000 mls/hr Q1H PRN IV hypotension; Start 11/21/18 at 11:59; Stop 11/21/18 at 17:58 Sodium Chloride 1,000 ml @ 400 mls/hr Q2H30M PRN IV PATENCY; Start 11/21/18 at 11:59; Stop 11/21/18 at 23:58 Info (PHARMACY MONITORING -- do not chart) 1 each PRN DAILY PRN MC SEE COMMENTS ; Start 11/21/18 at 12:00; Stop 11/21/18 at 12:06; Status DC Info (PHARMACY MONITORING -- do not chart) 1 each PRN DAILY PRN MC SEE COMMENTS ; Start 11/21/18 at 12:00; Stop 11/21/18 at 12:06; Status DC Active Scripts Active Reported Humalog (Insulin Lispro) 100 Unit/1 Ml Insuln.pen 8 Unit SQ TIDBFRMEAL Warfarin Sodium 5 Mg Tablet 2 Tab PO DAILY Furosemide 80 Mg Tablet 80 Mg PO DAILY Amlodipine Besylate 10 Mg Tablet 10 Mg PO DAILY Ferrous Sulfate 325 Mg Tablet 1 Tab PO QMWF Gabapentin (Gabapentin) 300 Mg Capsule 2 Cap PO PRN DAILY PRN Vitals/I & O Vital Sign - Last 24 Hours 11/20/18 11/20/18 11/20/18 11/20/18 15:35 17:30 18:00 18:30 Temp 98.5 98.5 Pulse 81 70 70 80 Resp 20 20 20 20 B/P (MAP) 205/86 (125) Pulse Ox 99 99 99 99 O2 Delivery Room Air 11/20/18 11/20/18 11/20/18 11/20/18 18:50 19:00 19:01 20:00 Temp 98.6 98.6 Pulse 82 86 96 Resp 18 B/P (MAP) 203/124 202/82 (122) Pulse Ox 100 99 95 O2 Delivery Room Air Room Air 11/20/18 11/20/18 11/20/18 11/20/18 20:15 20:15 20:30 20:45 Pulse 96 96 96 Resp B/P (MAP) 157/79 (105) 156/78 (104) 170/77 (108) Pulse Ox 98 95 96 O2 Delivery Room Air Room Air Room Air Room Air 11/20/18 11/20/18 11/20/18 11/20/18 21:00 21:30 22:00 23:00 Pulse 92 92 92 90 Resp B/P (MAP) 161/84 (109) 160/76 (104) 150/74 (99) 127/69 (88) Pulse Ox 96 95 96 O2 Delivery Room Air Room Air Room Air Room Air O2 Flow Rate 96.0 11/20/18 11/20/18 11/21/18 11/21/18 23:59 23:59 01:00 02:00 Temp 98.1 98.1 Pulse 101 97 100 Resp B/P (MAP) 142/59 (86) 121/65 (83) 134/65 (88) Pulse Ox 98 97 100 O2 Delivery Room Air Room Air Room Air Room Air 11/21/18 11/21/18 11/21/18 11/21/18 03:00 04:00 04:00 05:00 Temp 98.5 98.5 Pulse 93 71 73 Resp 18 20 18 B/P (MAP) 106/56 (73) 124/65 (84) 109/65 (80) Pulse Ox 99 99 99 O2 Delivery Room Air Room Air Room Air Room Air 11/21/18 11/21/18 11/21/18 11/21/18 06:00 07:00 08:00 08:00 Temp 98.5 98.5 Pulse 71 67 68 Resp 20 16 16 B/P (MAP) 109/65 (80) 119/66 (83) 107/62 (77) Pulse Ox 98 100 100 O2 Delivery Room Air Room Air Room Air Room Air 11/21/18 11/21/18 11/21/18 11/21/18 09:00 09:59 10:00 11:00 Pulse 74 71 72 77 Resp 16 16 14 B/P (MAP) 135/64 (87) 135/64 139/78 (98) 106/64 (78) Pulse Ox 100 99 99 O2 Delivery Room Air Room Air Room Air 11/21/18 11/21/18 12:00 12:00 Temp 98.6 98.6 Pulse 83 Resp 12 B/P (MAP) 104/60 (75) Pulse Ox 99 O2 Delivery Room Air Room Air Intake and Output 11/20/18 11/20/18 11/21/18 15:00 23:00 07:00 Intake Total 580 ml Balance 580 ml Nutrition Consultation Dietary Evaluation: Recommendations by RD: Protein supplementation Comments: REC renal/ADA diet REC double meat portions Expected Outcomes/Goals: PO intake to meet >75% est needs Malnutrition Findings: Body Fat Depletion (Non Severe: Mild Depletion SALLIE JACINTO MD Nov 21, 2018 13:34
[2018-11-21] MEDS: FUROSEMIDE 80 MG TABLET. PO SCH (13:57)
--- NOTE | 2018-11-21 14:15 | NUR ---
patient back to bed with minmal assist
--- NOTE | 2018-11-21 14:58 | NUR ---
SS following for discharge planning. SS reviewed pt chart. Pt is from home and is currently on room air. Pt has dialysis set up in the community at [facility]. No discharge needs noted at this time. SS will continue to follow for pending discharge needs.
[2018-11-21] MEDS ORDERED: INSU100I13 SQ (15:20)
--- NOTE | 2018-11-21 15:43 | NUR ---
Patient taken to room 532 via wheelchair by transportation personnel. All personal belongings with patient. Patient states clothing and billfold was taken by his family
[2018-11-21] MEDS ORDERED: WARFARIN 5 MG TABLET. PO SCH (16:00)
--- NOTE | 2018-11-21 16:15 | NUR ---
Have received patient to room 532, oriented to room. No visitors with patient.
[2018-11-21] MEDS ORDERED: INSULIN GLARGINE 300 UNITS/3 ML INSULN.PEN. SQ SCH (21:00)
[2018-11-22 03:08] VITALS: BP 108/63
[2018-11-22 07:00] VITALS: BP 121/71
[2018-11-22 07:39] LABS: CALCIUM 8.3 mg/dL (8.5-10.1); GFR 14.3; POTASSIUM 5.5 mmol/L (3.5-5.1)
[2018-11-22] MEDS: INSULIN LISPRO 300 UNITS/3 ML INSULN.PEN. SQ SCH ×4 (08:00→12:17)
[2018-11-22] MEDS: GABAPENTIN 300 MG CAPSULE. PO PRN (08:07)
[2018-11-22] MEDS: amLODIPine BESYLATE 10 MG TABLET PO SCH (08:07)
[2018-11-22] MEDS: FUROSEMIDE 80 MG TABLET. PO SCH (08:07)
[2018-11-22] MEDS ORDERED: ONDANSETRON PF 4 MG/2 ML VIAL. IV PRN (09:15)
[2018-11-22 11:00] VITALS: BP 116/65
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
--- NOTE | 2018-11-22 14:20 | NUR ---
Patient discharged home, belongings in room taken with patient.
--- NOTE | 2018-11-22 15:00 | PDOC ---
Renal-Progress Notes Subjective Notes Notes BETTER History of Present Illness Hx of present illness STABLE Vitals Vitals Vital Signs Date Time Temp Pulse Resp B/P (MAP) Pulse Ox O2 Delivery O2 Flow Rate FiO2 11/22/18 11:00 98.3 75 16 116/65 (82) 96 Room Air 98.3 Weight Weight [ ] I.O. Intake and Output Intake and Output 11/22/18 07:00 Intake Total 120 ml Balance 120 ml Intake Oral 120 ml # Voids 2 Labs Labs Laboratory Tests Test 11/21/18 17:01 11/21/18 20:28 11/22/18 06:15 11/22/18 07:19 Glucose (Fingerstick) 256 mg/dL (70-99) 111 mg/dL (70-99) 123 mg/dL (70-99) Sodium Level 141 mmol/L (136-145) Potassium Level 5.5 mmol/L (3.5-5.1) Chloride Level 104 mmol/L (98-107) Carbon Dioxide Level 30 mmol/L (21-32) Anion Gap 7 (6-14) Blood Urea Nitrogen 24 mg/dL (8-26) Creatinine 5.0 mg/dL (0.7-1.3) Estimated GFR (Cockcroft-Gault) 14.3 Glucose Level 168 mg/dL (70-99) Calcium Level 8.3 mg/dL (8.5-10.1) Test 11/22/18 11:12 Glucose (Fingerstick) 95 mg/dL (70-99) Review of Systems Constitutional: yes: alert, oriented Ears/Nose/Throat: Yes: no symptom reported Eyes: Yes: no symptom reported Pulmonary: Yes no symptom reported Cardiovascular: Yes no symptom reported Gastrointestional: Yes: no symptom reported Genitourinary: Yes: no symptom reported Musculoskeletal: Yes: no symptom reported Skin: Yes no symptom reported Psychiatric/Neurological: Yes: no symptom reported Endocrine: Yes: no symptom reported Hematologic/Lymphatic: Yes: no symptom reported Physical Exam General Appearance: no apparent distress Skin: warm Respiratory: bilateral CTA Heart: S1S2 Abdomen: soft, N/T Genitourinary: bladder flat Extremities: pulses present Neurology: alert, oriented Musculoskeletal: Osteoarthritis Assessment Assessment IMP ESRD HYPERKALEMIA NON COMPLIANCE PLAN K IMPROVED HD TOMORROW OK TO D/C D/W ATTENDING MARTINEZ JENSEN MD Nov 22, 2018 15:00
== END 2018-11-22 14:20 | disposition home or self-care (01) | DRG 682 ==
LOC: ER 14:37 → 1 WEST ICU 18:16 → 5 NORTH 11-21 15:46
PROVIDERS: ADMIT Internal Medicine; ATTEND Internal Medicine
PROC: 5A1D70Z Performance of Urinary Filtration, Intermittent, Less than 6 Hours Per Day (ICD-10-PCS; principal; 2018-11-20)
PROC: 5A1D70Z Performance of Urinary Filtration, Intermittent, Less than 6 Hours Per Day (ICD-10-PCS; 2018-11-21)
DX: I12.0 Hypertensive chronic kidney disease with stage 5 chronic kidney disease or end stage renal disease (principal); N18.6 End stage renal disease; E87.5 Hyperkalemia; E61.1 Iron deficiency; E21.3 Hyperparathyroidism, unspecified; Z79.4 Long term (current) use of insulin; D63.1 Anemia in chronic kidney disease; E11.22 Type 2 diabetes mellitus with diabetic chronic kidney disease; M19.90 Unspecified osteoarthritis, unspecified site; Z79.899 Other long term (current) drug therapy; Z83.3 Family history of diabetes mellitus; Z86.718 Personal history of other venous thrombosis and embolism; Z91.19 Patient's noncompliance with other medical treatment and regimen; Z99.2 Dependence on renal dialysis; Z88.8 Allergy status to other drugs, medicaments and biological substances
CPT/HCPCS: 36415; 70450; 71045; 80048; 80053; 82962; 83735; 84100; 84484; 85025; 85610; 87641; 93005; 93970; 94644; 96374; 96375; J0610; J1815; J7042; J7613; 99285-25

== ENCOUNTER 2019-03-01 02:04 | Inpatient (IN) | payer MEDICARE ==
[~2019-03-01] VITALS: Ht 190.5 cm; Wt 74.5 kg
[2019-03-01 04:02] LABS: BASO # 0.1 x10^3/uL (0.0-0.2); BASO % 1 % (0-3); EOS # 0.1 x10^3/uL (0.0-0.7); EOS % 1 % (0-3); HEMATOCRIT 35.1 % (39.0-53.0); HEMOGLOBIN 11.4 g/dL (13.0-17.5); LYMPH # 1.3 x10^3/uL (1.0-4.8); LYMPH % 24 % (24-48); MEAN CORPUSCULAR HEMOGLOBIN 29 pg (25-35); MEAN CORPUSCULAR HGB CONC 33 g/dL (31-37); MEAN CORPUSCULAR VOLUME 88 fL (79-100); MONO # 0.4 x10^3/uL (0.0-1.1); MONO % 8 % (0-9); NEUT # 3.4 x10^3uL (1.8-7.7); NEUT % 65 % (31-73); PLATELET COUNT 118 x10^3/uL (140-400); RED BLOOD COUNT 3.99 x10^6/uL (4.30-5.70); RED CELL DISTRIBUTION WIDTH 16.4 % (11.5-14.5); WHITE BLOOD COUNT 5.2 x10^3/uL (4.0-11.0)
[2019-03-01 04:16] LABS: ALBUMIN 3.6 g/dL (3.4-5.0); ALBUMIN/GLOBULIN RATIO 0.9 (1.0-1.7); CALCIUM 7.4 mg/dL (8.5-10.1); CREATININE 13.3 mg/dL (0.7-1.3); GFR 4.6; TOTAL BILIRUBIN 0.3 mg/dL (0.2-1.0); TOTAL PROTEIN 7.4 g/dL (6.4-8.2)
[2019-03-01 04:19] LABS: POTASSIUM 6.7 mmol/L (3.5-5.1)
--- NOTE | 2019-03-01 05:05 | PHYS DOC ---
Past Medical History Past Medical History: Cancer, Diabetes-Type I, DVT, Other Additional Past Medical Histor: ulcerative colitis. Past Surgical History: Other Additional Past 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 Alcohol Use: Rarely Drug Use: None Adult General Chief Complaint Chief Complaint: WEAKNESS/GENERALIZED HPI HPI Patient is a 63 year old -[place] male with history of end-stage renal disease disease currently on dialysis who presents with generalized weakness and malaise. Patient has missed dialysis for the past week due to lack of transportation. Reports increased peripheral edema. His orthopnea and paroxysmal nocturnal dyspnea. No chest pain, shortness of breath, oropharynx was throat. Patient makes movement of urine. 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 All other review symptoms All other systems were reviewed and found to be within normal limits, except as documented in this note. Current Medications Current Medications Current Medications Medications (Trade) Dose Ordered Sig/Raymon Start Time Stop Time Status Last Admin Dose Admin Calcium Gluconate (Calcium Gluconate) 1,000 mg 1X ONCE 03/01/19 05:15 03/01/19 05:16 UNV Insulin Human Regular (HumuLIN R VIAL) 10 unit 1X ONCE 03/01/19 05:15 03/01/19 05:16 UNV Sodium Bicarbonate (Sodium Bicarb Adult 8.4% Syr) 50 meq 1X ONCE 03/01/19 05:15 03/01/19 05:16 UNV Allergies Allergies Allergies Coded Allergies Type Severity Reaction Last Updated Verified prednisone Allergy Unknown 10/23/17 Yes Physical Exam Physical Exam Constitutional: Well developed, well nourished, no acute distress, non-toxic appearance. [] HENT: Normocephalic, atraumatic, bilateral external ears normal, oropharynx moist. [] Eyes: PERRLA, EOMI, conjunctiva normal. [] Neck: Normal range of motion, no tenderness, supple. [] Cardiovascular:Heart rate regular rhythm.[] Lungs & Thorax: Bilateral breath sounds clear to auscultation [] Abdomen: Bowel sounds normal, soft, no tenderness. [] Skin: Warm, dry. [] Back: No tenderness. [] Extremities: No tenderness, peripheral edema. [] Neurologic: Alert and oriented X 3, normal motor function, normal sensory function, no focal deficits noted. [] Psychologic: Affect normal, judgement normal, mood normal. [] Current Patient Data Vital Signs Vital Signs Date Time Temp Pulse Resp B/P (MAP) Pulse Ox O2 Delivery O2 Flow Rate FiO2 03/01/19 02:05 97.7 80 17 159/82 (107) 99 Room Air 97.7 Lab Values Laboratory Tests Test 03/01/19 03:50 White Blood Count 5.2 x10^3/uL (4.0-11.0) Red Blood Count 3.99 x10^6/uL (4.30-5.70) L Hemoglobin 11.4 g/dL (13.0-17.5) L Hematocrit 35.1 % (39.0-53.0) L Mean Corpuscular Volume 88 fL (79-100) Mean Corpuscular Hemoglobin 29 pg (25-35) Mean Corpuscular Hemoglobin Concent 33 g/dL (31-37) Red Cell Distribution Width 16.4 % (11.5-14.5) H Platelet Count 118 x10^3/uL (140-400) L Neutrophils (%) (Auto) 65 % (31-73) Lymphocytes (%) (Auto) 24 % (24-48) Monocytes (%) (Auto) 8 % (0-9) Eosinophils (%) (Auto) 1 % (0-3) Basophils (%) (Auto) 1 % (0-3) Neutrophils # (Auto) 3.4 x10^3uL (1.8-7.7) Lymphocytes # (Auto) 1.3 x10^3/uL (1.0-4.8) Monocytes # (Auto) 0.4 x10^3/uL (0.0-1.1) Eosinophils # (Auto) 0.1 x10^3/uL (0.0-0.7) Basophils # (Auto) 0.1 x10^3/uL (0.0-0.2) Sodium Level 136 mmol/L (136-145) Potassium Level 6.7 mmol/L (3.5-5.1) *H Chloride Level 101 mmol/L (98-107) Carbon Dioxide Level 21 mmol/L (21-32) Anion Gap 14 (6-14) Blood Urea Nitrogen 65 mg/dL (8-26) H Creatinine 13.3 mg/dL (0.7-1.3) H Estimated GFR (Cockcroft-Gault) 4.6 BUN/Creatinine Ratio 5 (6-20) L Glucose Level 352 mg/dL (70-99) H Calcium Level 7.4 mg/dL (8.5-10.1) L Total Bilirubin 0.3 mg/dL (0.2-1.0) Aspartate Amino Transferase (AST) 12 U/L (15-37) L Alanine Aminotransferase (ALT) 13 U/L (16-63) L Alkaline Phosphatase 123 U/L (46-116) H Troponin I Quantitative < 0.017 ng/mL (0.000-0.055) Total Protein 7.4 g/dL (6.4-8.2) Albumin 3.6 g/dL (3.4-5.0) Albumin/Globulin Ratio 0.9 (1.0-1.7) L Laboratory Tests 03/01/19 03:50 Laboratory Tests 03/01/19 03:50 EKG EKG [EKG: reviewed. ] Radiology/Procedures Radiology/Procedures [CXR: reviewed.] Course & Med Decision Making Course & Med Decision Making Pertinent Labs and Imaging studies reviewed. (See chart for details) [Weakness with analysis times one week. Calcium, bicarbonate insulin given treatment of hyperkalemia. Will admit for dialysis session today.] Dragon Disclaimer Dragon Disclaimer This electronic medical record was generated, in whole or in part, using a voice recognition dictation system. Departure Departure Impression: Primary Impression: ESRD (end stage renal disease) on dialysis Additional Impression: Hyperkalemia Disposition: ADMITTED INPATIENT Condition: STABLE Referrals: UNKNOWN PCP NAME (PCP) Problem Qualifiers RAMAKRISHNA CHILD DO Mar 01, 2019 05:05
[2019-03-01] MEDS ORDERED: INSULIN REGULAR 100 UNIT/ML 3ML VIAL. IV ONE (05:30)
[2019-03-01] MEDS ORDERED: ONDANSETRON PF 4 MG/2 ML VIAL. IV PRN (05:30)
[2019-03-01] MEDS ORDERED: CALCIUM GLUCONATE 1,000 MG/10 ML VIAL. IVP ONE (05:30)
[2019-03-01] MEDS ORDERED: SODIUM BICARB ADULT 8.4% 50 MEQ/50 ML DISP.SYRIN. IV ONE (05:30)
[2019-03-01 06:00] VITALS: BP 195/97
--- NOTE | 2019-03-01 06:58 | EKG ---
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
[2019-03-01 07:00] VITALS: BP 148/77
[2019-03-01] MEDS ORDERED: DEXTROSE 50% 25 GM / 50ML DISP.SYRIN. IV PRN ×2 (07:30→14:00)
--- NOTE | 2019-03-01 08:21 | RAD ---
EXAM: CHEST 1 VIEW History: Chest pain COMPARISON: 10/25/2017 TECHNIQUE: Single portable radiograph of the chest FINDINGS: The cardiac silhouette is unremarkable. The lungs are clear bilaterally. The costophrenic sulci are clear and well demarcated. IMPRESSION: No radiographic evidence of an acute cardiopulmonary process. Electronically signed by: Dillon Lara MD (03/01/2019 8:18 AM) [facility]
[2019-03-01] MEDS ORDERED: DIALYSIS PATIENT. MC PRN ×2 (08:30)
[2019-03-01] MEDS ORDERED: IV NORMAL SALINE 1000ML BAG 1,000 ML IV PRN ×2 (08:30)
[2019-03-01] MEDS ORDERED: INSU100V13 SQ (10:07)
[2019-03-01] MEDS ORDERED: INSU100C4 SQ (10:07)
--- NOTE | 2019-03-01 11:24 | PDOC2 ---
CONSULT Date of Consult Date of Consult DATE: 03/01/19 TIME: 11:16 Reason for Consult Reason for Consult: ESRD Source Source: Chart review, Patient History of Present Illness Reason for Visit: Patient is a 63 year old -[place] male with history of end-stage renal disease disease presents with generalized weakness and malaise. He has missed dialysis for the past week due to lack of transportation. Reports increased peripheral edema. Has chronic orthopnea and paroxysmal nocturnal dyspnea. No chest pain, , Patient makes some urine. Pt Not giving history, wants to sleep. Seen on Dialysis Past Medical History Cardiovascular: HTN Pulmonary: No pertinent hx CENTRAL NERVOUS SYSTEM: Other GI: No pertinent hx Heme/Onc: Anemia NOS, Other Hepatobiliary: Hep A/B/C Psych: No pertinent hx Musculoskeletal: Osteoarthritis Rheumatologic: No pertinent hx Infectious disease: HIV Renal/: Chronic renal insuff, Hematuria Endocrine: Diabetes, Hyperparathyroidism Past Surgical History Past Surgical History: Cholecystectomy, Colectomy Family History Family History: No Significant, Diabetes Social History ALCOHOL: occassional Drugs: Cocaine, Crystal meth Lives: with Family Current Medications Current Medications Current Medications Insulin Human Regular (HumuLIN R VIAL) 10 unit 1X ONCE IV Last administered on 03/01/19at 05:44; Start 03/01/19 at 05:30; Stop 03/01/19 at 05:31; Status DC Sodium Bicarbonate (Sodium Bicarb Adult 8.4% Syr) 50 meq 1X ONCE IV Last administered on 03/01/19at 05:42; Start 03/01/19 at 05:30; Stop 03/01/19 at 05:31; Status DC Calcium Gluconate (Calcium Gluconate) 1,000 mg 1X ONCE IVP Last administered on 03/01/19at 05:42; Start 03/01/19 at 05:30; Stop 03/01/19 at 05:31; Status DC Ondansetron HCl (Zofran) 4 mg PRN Q8HRS PRN IV NAUSEA/VOMITING; Start 03/01/19 at 05:30; Stop 03/02/19 at 05:29 Dextrose (Dextrose 50%-Water Syringe) 12.5 gm PRN Q15MIN PRN IV SEE COMMENTS; Start 03/01/19 at 07:30 Sodium Chloride 1,000 ml @ 1,000 mls/hr Q1H PRN IV hypotension; Start 03/01/19 at 08:30; Stop 03/01/19 at 15:00 Sodium Chloride 1,000 ml @ 400 mls/hr Q2H30M PRN IV PATENCY; Start 03/01/19 at 08:30; Stop 03/01/19 at 15:00 Info (PHARMACY MONITORING -- do not chart) 1 each PRN DAILY PRN MC SEE COMMENTS; Start 03/01/19 at 08:30; Status UNV Info (PHARMACY MONITORING -- do not chart) 1 each PRN DAILY PRN MC SEE COMMENTS; Start 03/01/19 at 08:30 Active Scripts Active Reported Levemir (Insulin Detemir) 100 Unit/1 Ml Vial 18 Unit SQ DAILY Novolog (Insulin Aspart) 100 Unit/1 Ml Cartridge 5 Unit SQ TIDWMEALS Warfarin Sodium 5 Mg Tablet 2 Tab PO DAILY Furosemide 80 Mg Tablet 80 Mg PO DAILY Amlodipine Besylate 10 Mg Tablet 10 Mg PO DAILY Ferrous Sulfate 325 Mg Tablet 1 Tab PO QMWF Gabapentin (Gabapentin) 300 Mg Capsule 2 Cap PO PRN DAILY PRN Allergies Allergies: Coded Allergies: prednisone (Verified Allergy, Unknown, 10/23/17) PT STATES LEG BECAME SWOLLEN FROM TAKING AND GOT A BLOOD CLOT ROS Review of System Per HPI Physical Exam Physical Exam GEN: NAD, sleeping, easily arousable HEEN: OM moist Neck- Supple Lungs- CTA ant , Non labored CV RRR Abs -NT : No CVA tenderness, No Suprapubic Tenderness, No [place] Skin No rash Neuro- grossly normal Vital Signs Vital Signs Date Time Temp Pulse Resp B/P (MAP) Pulse Ox O2 Delivery O2 Flow Rate FiO2 03/01/19 07:30 Room Air 03/01/19 07:00 97.6 89 16 148/77 (100) 97 97.6 Assessment & Plan ESRD- On HD MWF Missed HD for a week- per due to transportation issues Seen in Hd today,tolerating well, Continue as Ordered Dw Tania Hyperkalemia K 6.7 Missed a week , HD today Anemia- Hgb stable, No indication for MIKEY DM per Primary HTN- Home meds Labs Labs Laboratory Tests Test 03/01/19 03:50 03/01/19 07:14 White Blood Count 5.2 x10^3/uL (4.0-11.0) Red Blood Count 3.99 x10^6/uL (4.30-5.70) Hemoglobin 11.4 g/dL (13.0-17.5) Hematocrit 35.1 % (39.0-53.0) Mean Corpuscular Volume 88 fL (79-100) Mean Corpuscular Hemoglobin 29 pg (25-35) Mean Corpuscular Hemoglobin Concent 33 g/dL (31-37) Red Cell Distribution Width 16.4 % (11.5-14.5) Platelet Count 118 x10^3/uL (140-400) Neutrophils (%) (Auto) 65 % (31-73) Lymphocytes (%) (Auto) 24 % (24-48) Monocytes (%) (Auto) 8 % (0-9) Eosinophils (%) (Auto) 1 % (0-3) Basophils (%) (Auto) 1 % (0-3) Neutrophils # (Auto) 3.4 x10^3uL (1.8-7.7) Lymphocytes # (Auto) 1.3 x10^3/uL (1.0-4.8) Monocytes # (Auto) 0.4 x10^3/uL (0.0-1.1) Eosinophils # (Auto) 0.1 x10^3/uL (0.0-0.7) Basophils # (Auto) 0.1 x10^3/uL (0.0-0.2) Sodium Level 136 mmol/L (136-145) Potassium Level 6.7 mmol/L (3.5-5.1) Chloride Level 101 mmol/L (98-107) Carbon Dioxide Level 21 mmol/L (21-32) Anion Gap 14 (6-14) Blood Urea Nitrogen 65 mg/dL (8-26) Creatinine 13.3 mg/dL (0.7-1.3) Estimated GFR (Cockcroft-Gault) 4.6 BUN/Creatinine Ratio 5 (6-20) Glucose Level 352 mg/dL (70-99) Calcium Level 7.4 mg/dL (8.5-10.1) Total Bilirubin 0.3 mg/dL (0.2-1.0) Aspartate Amino Transf (AST/SGOT) 12 U/L (15-37) Alanine Aminotransferase (ALT/SGPT) 13 U/L (16-63) Alkaline Phosphatase 123 U/L (46-116) Troponin I Quantitative < 0.017 ng/mL (0.000-0.055) Total Protein 7.4 g/dL (6.4-8.2) Albumin 3.6 g/dL (3.4-5.0) Albumin/Globulin Ratio 0.9 (1.0-1.7) Glucose (Fingerstick) 83 mg/dL (70-99) Laboratory Tests Test 03/01/19 03:50 03/01/19 07:14 White Blood Count 5.2 x10^3/uL (4.0-11.0) Red Blood Count 3.99 x10^6/uL (4.30-5.70) Hemoglobin 11.4 g/dL (13.0-17.5) Hematocrit 35.1 % (39.0-53.0) Mean Corpuscular Volume 88 fL (79-100) Mean Corpuscular Hemoglobin 29 pg (25-35) Mean Corpuscular Hemoglobin Concent 33 g/dL (31-37) Red Cell Distribution Width 16.4 % (11.5-14.5) Platelet Count 118 x10^3/uL (140-400) Neutrophils (%) (Auto) 65 % (31-73) Lymphocytes (%) (Auto) 24 % (24-48) Monocytes (%) (Auto) 8 % (0-9) Eosinophils (%) (Auto) 1 % (0-3) Basophils (%) (Auto) 1 % (0-3) Neutrophils # (Auto) 3.4 x10^3uL (1.8-7.7) Lymphocytes # (Auto) 1.3 x10^3/uL (1.0-4.8) Monocytes # (Auto) 0.4 x10^3/uL (0.0-1.1) Eosinophils # (Auto) 0.1 x10^3/uL (0.0-0.7) Basophils # (Auto) 0.1 x10^3/uL (0.0-0.2) Sodium Level 136 mmol/L (136-145) Potassium Level 6.7 mmol/L (3.5-5.1) Chloride Level 101 mmol/L (98-107) Carbon Dioxide Level 21 mmol/L (21-32) Anion Gap 14 (6-14) Blood Urea Nitrogen 65 mg/dL (8-26) Creatinine 13.3 mg/dL (0.7-1.3) Estimated GFR (Cockcroft-Gault) 4.6 BUN/Creatinine Ratio 5 (6-20) Glucose Level 352 mg/dL (70-99) Calcium Level 7.4 mg/dL (8.5-10.1) Total Bilirubin 0.3 mg/dL (0.2-1.0) Aspartate Amino Transf (AST/SGOT) 12 U/L (15-37) Alanine Aminotransferase (ALT/SGPT) 13 U/L (16-63) Alkaline Phosphatase 123 U/L (46-116) Troponin I Quantitative < 0.017 ng/mL (0.000-0.055) Total Protein 7.4 g/dL (6.4-8.2) Albumin 3.6 g/dL (3.4-5.0) Albumin/Globulin Ratio 0.9 (1.0-1.7) Glucose (Fingerstick) 83 mg/dL (70-99) Review All relevant outside records, renal labs, imaging studies, telemetry/EKG's were reviewed. Images Images IMPRESSION: No radiographic evidence of an acute cardiopulmonary process. NNAMDI TESFAYE MD Mar 01, 2019 11:24
--- NOTE | 2019-03-01 12:15 | NUR ---
SS following for discharge planning. SS reviewed pt chart. Pt is from home and is currently on room air. No discharge needs notes at this time. SS will continue to follow for discharge planning.
[2019-03-01] MEDS ORDERED: GABAPENTIN 300 MG CAPSULE. PO PRN (14:00)
[2019-03-01] MEDS ORDERED: WARF-31 PO (14:16)
[2019-03-01] MEDS ORDERED: INSULIN GLARGINE 300 UNITS/3 ML INSULN.PEN. SQ SCH (14:30)
[2019-03-01] MEDS ORDERED: ZOLPIDEM 5 MG TABLET. PO PRN (14:30)
[2019-03-01] MEDS: FUROSEMIDE 80 MG TABLET. PO SCH (14:36)
[2019-03-01] MEDS: FERROUS SULFATE 325 MG TABLET. PO SCH (14:36)
[2019-03-01] MEDS: GABAPENTIN 300 MG CAPSULE. PO SCH ×2 (14:37→21:01)
[2019-03-01] MEDS: amLODIPine BESYLATE 10 MG TABLET PO SCH (14:37)
[2019-03-01] MEDS: INSULIN LISPRO 300 UNITS/3 ML INSULN.PEN. SQ SCH ×3 (14:44→18:42)
[2019-03-01 14:46] VITALS: BP 119/73
[2019-03-01 15:30] LABS: PROTHROMBIN TIME PATIENT 13.4 SEC (11.7-14.0)
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
[2019-03-01] MEDS: WARFARIN 5 MG TABLET. PO SCH (16:06)
--- NOTE | 2019-03-01 16:27 | NUR ---
Patient transferred to via wheelchair. Report given to WILLIAM Valle.
[2019-03-01 17:00] VITALS: BP 99/66
[2019-03-01] MEDS ORDERED: INSULIN LISPRO 300 UNITS/3 ML INSULN.PEN. SQ SCH (17:00)
[2019-03-01 19:00] VITALS: BP 96/63
[2019-03-01] MEDS: INSULIN GLARGINE 300 UNITS/3 ML INSULN.PEN. SQ SCH (21:00)
[2019-03-01 22:33] VITALS: BP 102/60
[2019-03-02 02:46] VITALS: BP 116/71
[2019-03-02 06:03] LABS: BASO % 1 % (0-3); EOS # 0.1 x10^3/uL (0.0-0.7); EOS % 2 % (0-3); HEMATOCRIT 37.2 % (39.0-53.0); HEMOGLOBIN 12.1 g/dL (13.0-17.5); LYMPH # 1.4 x10^3/uL (1.0-4.8); LYMPH % 28 % (24-48); MEAN CORPUSCULAR HEMOGLOBIN 29 pg (25-35); MEAN CORPUSCULAR HGB CONC 33 g/dL (31-37); MEAN CORPUSCULAR VOLUME 88 fL (79-100); MONO # 0.6 x10^3/uL (0.0-1.1); MONO % 11 % (0-9); NEUT % 58 % (31-73); PLATELET COUNT 119 x10^3/uL (140-400); RED BLOOD COUNT 4.24 x10^6/uL (4.30-5.70); WHITE BLOOD COUNT 5.3 x10^3/uL (4.0-11.0)
[2019-03-02 06:13] LABS: PROTHROMBIN TIME PATIENT 13.3 SEC (11.7-14.0)
[2019-03-02 06:25] LABS: ALBUMIN 3.3 g/dL (3.4-5.0); ALBUMIN/GLOBULIN RATIO 0.9 (1.0-1.7); CALCIUM 6.9 mg/dL (8.5-10.1); CREATININE 8.5 mg/dL (0.7-1.3); GFR 7.7; POTASSIUM 5.1 mmol/L (3.5-5.1); TOTAL BILIRUBIN 0.2 mg/dL (0.2-1.0); TOTAL PROTEIN 7.1 g/dL (6.4-8.2)
[2019-03-02 07:00] VITALS: BP 107/63
[2019-03-02] MEDS: INSULIN LISPRO 300 UNITS/3 ML INSULN.PEN. SQ SCH ×6 (08:08→17:52)
[2019-03-02] MEDS ORDERED: INSULIN LISPRO 300 UNITS/3 ML INSULN.PEN. SQ ONE ×2 (08:15→22:00)
[2019-03-02] MEDS: FUROSEMIDE 80 MG TABLET. PO SCH (08:30)
[2019-03-02] MEDS: GABAPENTIN 300 MG CAPSULE. PO SCH ×3 (08:30→22:07)
[2019-03-02] MEDS: amLODIPine BESYLATE 10 MG TABLET PO SCH (08:31)
[2019-03-02] MEDS ORDERED: INSULIN GLARGINE 300 UNITS/3 ML INSULN.PEN. SQ SCH (09:00)
--- NOTE | 2019-03-02 10:54 | PDOC ---
[employer] PROGRESS NOTE Chief Complaint Chief Complaint Acute hyperkalemia Severe non-compliance ESRD on HD not compliant with meds or HD DM2, on insulin, poor control History of Present Illness History of Present Illness Patient seen and examined this morning He is pleasant and cooperative To shower I discussed the case with case management and his nurse Vitals Vitals Vital Signs Date Time Temp Pulse Resp B/P (MAP) Pulse Ox O2 Delivery O2 Flow Rate FiO2 03/02/19 08:31 91 107/63 03/02/19 07:00 98.6 18 98 Room Air 98.6 Physical Exam General: Alert, Oriented X3, mild distress Heart: Regular rate, Normal S1 Lungs: Clear Abdomen: Normal bowel sounds, Soft Extremities: No cyanosis, No edema, Normal pulses Skin: No rashes, No significant lesion Labs Labs: Laboratory Tests Test 03/01/19 13:47 03/01/19 15:00 03/01/19 17:13 03/01/19 20:42 Glucose (Fingerstick) 367 mg/dL (70-99) 208 mg/dL (70-99) 97 mg/dL (70-99) Prothrombin Time 13.4 SEC (11.7-14.0) Prothromb Time International Ratio 1.1 (0.8-1.1) Test 03/02/19 04:37 03/02/19 07:29 White Blood Count 5.3 x10^3/uL (4.0-11.0) Red Blood Count 4.24 x10^6/uL (4.30-5.70) Hemoglobin 12.1 g/dL (13.0-17.5) Hematocrit 37.2 % (39.0-53.0) Mean Corpuscular Volume 88 fL (79-100) Mean Corpuscular Hemoglobin 29 pg (25-35) Mean Corpuscular Hemoglobin Concent 33 g/dL (31-37) Red Cell Distribution Width 16.0 % (11.5-14.5) Platelet Count 119 x10^3/uL (140-400) Neutrophils (%) (Auto) 58 % (31-73) Lymphocytes (%) (Auto) 28 % (24-48) Monocytes (%) (Auto) 11 % (0-9) Eosinophils (%) (Auto) 2 % (0-3) Basophils (%) (Auto) 1 % (0-3) Neutrophils # (Auto) 3.0 x10^3uL (1.8-7.7) Lymphocytes # (Auto) 1.4 x10^3/uL (1.0-4.8) Monocytes # (Auto) 0.6 x10^3/uL (0.0-1.1) Eosinophils # (Auto) 0.1 x10^3/uL (0.0-0.7) Basophils # (Auto) 0.0 x10^3/uL (0.0-0.2) Prothrombin Time 13.3 SEC (11.7-14.0) Prothromb Time International Ratio 1.0 (0.8-1.1) Sodium Level 137 mmol/L (136-145) Potassium Level 5.1 mmol/L (3.5-5.1) Chloride Level 98 mmol/L (98-107) Carbon Dioxide Level 27 mmol/L (21-32) Anion Gap 12 (6-14) Blood Urea Nitrogen 41 mg/dL (8-26) Creatinine 8.5 mg/dL (0.7-1.3) Estimated GFR (Cockcroft-Gault) 7.7 BUN/Creatinine Ratio 5 (6-20) Glucose Level 260 mg/dL (70-99) Calcium Level 6.9 mg/dL (8.5-10.1) Total Bilirubin 0.2 mg/dL (0.2-1.0) Aspartate Amino Transf (AST/SGOT) 16 U/L (15-37) Alanine Aminotransferase (ALT/SGPT) 13 U/L (16-63) Alkaline Phosphatase 112 U/L (46-116) Total Protein 7.1 g/dL (6.4-8.2) Albumin 3.3 g/dL (3.4-5.0) Albumin/Globulin Ratio 0.9 (1.0-1.7) Glucose (Fingerstick) 461 mg/dL (70-99) Assessment and Plan Assessmemt and Plan Acute hyperkalemia Severe non-compliance ESRD on HD not compliant with meds or HD DM2, on insulin, poor control Plan We've consulted nephrology Corrected electrolytes HD Wednesday Home meds DVT prophylaxis Full code PT OT Prognosis is guarded long-term if he doesn't start being more compliant Comment Review of Relevant I have reviewed the following items keron (where applicable) has been applied. Labs Laboratory Tests Test 03/01/19 03:50 03/01/19 07:14 03/01/19 13:47 03/01/19 15:00 White Blood Count 5.2 x10^3/uL (4.0-11.0) Red Blood Count 3.99 x10^6/uL (4.30-5.70) Hemoglobin 11.4 g/dL (13.0-17.5) Hematocrit 35.1 % (39.0-53.0) Mean Corpuscular Volume 88 fL (79-100) Mean Corpuscular Hemoglobin 29 pg (25-35) Mean Corpuscular Hemoglobin Concent 33 g/dL (31-37) Red Cell Distribution Width 16.4 % (11.5-14.5) Platelet Count 118 x10^3/uL (140-400) Neutrophils (%) (Auto) 65 % (31-73) Lymphocytes (%) (Auto) 24 % (24-48) Monocytes (%) (Auto) 8 % (0-9) Eosinophils (%) (Auto) 1 % (0-3) Basophils (%) (Auto) 1 % (0-3) Neutrophils # (Auto) 3.4 x10^3uL (1.8-7.7) Lymphocytes # (Auto) 1.3 x10^3/uL (1.0-4.8) Monocytes # (Auto) 0.4 x10^3/uL (0.0-1.1) Eosinophils # (Auto) 0.1 x10^3/uL (0.0-0.7) Basophils # (Auto) 0.1 x10^3/uL (0.0-0.2) Sodium Level 136 mmol/L (136-145) Potassium Level 6.7 mmol/L (3.5-5.1) Chloride Level 101 mmol/L (98-107) Carbon Dioxide Level 21 mmol/L (21-32) Anion Gap 14 (6-14) Blood Urea Nitrogen 65 mg/dL (8-26) Creatinine 13.3 mg/dL (0.7-1.3) Estimated GFR (Cockcroft-Gault) 4.6 BUN/Creatinine Ratio 5 (6-20) Glucose Level 352 mg/dL (70-99) Calcium Level 7.4 mg/dL (8.5-10.1) Total Bilirubin 0.3 mg/dL (0.2-1.0) Aspartate Amino Transf (AST/SGOT) 12 U/L (15-37) Alanine Aminotransferase (ALT/SGPT) 13 U/L (16-63) Alkaline Phosphatase 123 U/L (46-116) Troponin I Quantitative < 0.017 ng/mL (0.000-0.055) Total Protein 7.4 g/dL (6.4-8.2) Albumin 3.6 g/dL (3.4-5.0) Albumin/Globulin Ratio 0.9 (1.0-1.7) Glucose (Fingerstick) 83 mg/dL (70-99) 367 mg/dL (70-99) Prothrombin Time 13.4 SEC (11.7-14.0) Prothromb Time International Ratio 1.1 (0.8-1.1) Test 03/01/19 17:13 03/01/19 20:42 03/02/19 04:37 03/02/19 07:29 Glucose (Fingerstick) 208 mg/dL (70-99) 97 mg/dL (70-99) 461 mg/dL (70-99) White Blood Count 5.3 x10^3/uL (4.0-11.0) Red Blood Count 4.24 x10^6/uL (4.30-5.70) Hemoglobin 12.1 g/dL (13.0-17.5) Hematocrit 37.2 % (39.0-53.0) Mean Corpuscular Volume 88 fL (79-100) Mean Corpuscular Hemoglobin 29 pg (25-35) Mean Corpuscular Hemoglobin Concent 33 g/dL (31-37) Red Cell Distribution Width 16.0 % (11.5-14.5) Platelet Count 119 x10^3/uL (140-400) Neutrophils (%) (Auto) 58 % (31-73) Lymphocytes (%) (Auto) 28 % (24-48) Monocytes (%) (Auto) 11 % (0-9) Eosinophils (%) (Auto) 2 % (0-3) Basophils (%) (Auto) 1 % (0-3) Neutrophils # (Auto) 3.0 x10^3uL (1.8-7.7) Lymphocytes # (Auto) 1.4 x10^3/uL (1.0-4.8) Monocytes # (Auto) 0.6 x10^3/uL (0.0-1.1) Eosinophils # (Auto) 0.1 x10^3/uL (0.0-0.7) Basophils # (Auto) 0.0 x10^3/uL (0.0-0.2) Prothrombin Time 13.3 SEC (11.7-14.0) Prothromb Time International Ratio 1.0 (0.8-1.1) Sodium Level 137 mmol/L (136-145) Potassium Level 5.1 mmol/L (3.5-5.1) Chloride Level 98 mmol/L (98-107) Carbon Dioxide Level 27 mmol/L (21-32) Anion Gap 12 (6-14) Blood Urea Nitrogen 41 mg/dL (8-26) Creatinine 8.5 mg/dL (0.7-1.3) Estimated GFR (Cockcroft-Gault) 7.7 BUN/Creatinine Ratio 5 (6-20) Glucose Level 260 mg/dL (70-99) Calcium Level 6.9 mg/dL (8.5-10.1) Total Bilirubin 0.2 mg/dL (0.2-1.0) Aspartate Amino Transf (AST/SGOT) 16 U/L (15-37) Alanine Aminotransferase (ALT/SGPT) 13 U/L (16-63) Alkaline Phosphatase 112 U/L (46-116) Total Protein 7.1 g/dL (6.4-8.2) Albumin 3.3 g/dL (3.4-5.0) Albumin/Globulin Ratio 0.9 (1.0-1.7) Laboratory Tests Test 03/01/19 13:47 03/01/19 15:00 03/01/19 17:13 03/01/19 20:42 Glucose (Fingerstick) 367 mg/dL (70-99) 208 mg/dL (70-99) 97 mg/dL (70-99) Prothrombin Time 13.4 SEC (11.7-14.0) Prothromb Time International Ratio 1.1 (0.8-1.1) Test 03/02/19 04:37 03/02/19 07:29 White Blood Count 5.3 x10^3/uL (4.0-11.0) Red Blood Count 4.24 x10^6/uL (4.30-5.70) Hemoglobin 12.1 g/dL (13.0-17.5) Hematocrit 37.2 % (39.0-53.0) Mean Corpuscular Volume 88 fL (79-100) Mean Corpuscular Hemoglobin 29 pg (25-35) Mean Corpuscular Hemoglobin Concent 33 g/dL (31-37) Red Cell Distribution Width 16.0 % (11.5-14.5) Platelet Count 119 x10^3/uL (140-400) Neutrophils (%) (Auto) 58 % (31-73) Lymphocytes (%) (Auto) 28 % (24-48) Monocytes (%) (Auto) 11 % (0-9) Eosinophils (%) (Auto) 2 % (0-3) Basophils (%) (Auto) 1 % (0-3) Neutrophils # (Auto) 3.0 x10^3uL (1.8-7.7) Lymphocytes # (Auto) 1.4 x10^3/uL (1.0-4.8) Monocytes # (Auto) 0.6 x10^3/uL (0.0-1.1) Eosinophils # (Auto) 0.1 x10^3/uL (0.0-0.7) Basophils # (Auto) 0.0 x10^3/uL (0.0-0.2) Prothrombin Time 13.3 SEC (11.7-14.0) Prothromb Time International Ratio 1.0 (0.8-1.1) Sodium Level 137 mmol/L (136-145) Potassium Level 5.1 mmol/L (3.5-5.1) Chloride Level 98 mmol/L (98-107) Carbon Dioxide Level 27 mmol/L (21-32) Anion Gap 12 (6-14) Blood Urea Nitrogen 41 mg/dL (8-26) Creatinine 8.5 mg/dL (0.7-1.3) Estimated GFR (Cockcroft-Gault) 7.7 BUN/Creatinine Ratio 5 (6-20) Glucose Level 260 mg/dL (70-99) Calcium Level 6.9 mg/dL (8.5-10.1) Total Bilirubin 0.2 mg/dL (0.2-1.0) Aspartate Amino Transf (AST/SGOT) 16 U/L (15-37) Alanine Aminotransferase (ALT/SGPT) 13 U/L (16-63) Alkaline Phosphatase 112 U/L (46-116) Total Protein 7.1 g/dL (6.4-8.2) Albumin 3.3 g/dL (3.4-5.0) Albumin/Globulin Ratio 0.9 (1.0-1.7) Glucose (Fingerstick) 461 mg/dL (70-99) Medications Current Medications Insulin Human Regular (HumuLIN R VIAL) 10 unit 1X ONCE IV Last administered on 03/01/19at 05:44; Start 03/01/19 at 05:30; Stop 03/01/19 at 05:31; Status DC Sodium Bicarbonate (Sodium Bicarb Adult 8.4% Syr) 50 meq 1X ONCE IV Last administered on 03/01/19at 05:42; Start 03/01/19 at 05:30; Stop 03/01/19 at 05:31; Status DC Calcium Gluconate (Calcium Gluconate) 1,000 mg 1X ONCE IVP Last administered on 03/01/19at 05:42; Start 03/01/19 at 05:30; Stop 03/01/19 at 05:31; Status DC Ondansetron HCl (Zofran) 4 mg PRN Q8HRS PRN IV NAUSEA/VOMITING; Start 03/01/19 at 05:30; Stop 03/02/19 at 05:29; Status DC Dextrose (Dextrose 50%-Water Syringe) 12.5 gm PRN Q15MIN PRN IV SEE COMMENTS; Start 03/01/19 at 07:30 Sodium Chloride 1,000 ml @ 1,000 mls/hr Q1H PRN IV hypotension; Start 03/01/19 at 08:30; Stop 03/01/19 at 15:00; Status DC Sodium Chloride 1,000 ml @ 400 mls/hr Q2H30M PRN IV PATENCY; Start 03/01/19 at 08:30; Stop 03/01/19 at 15:00; Status DC Info (PHARMACY MONITORING -- do not chart) 1 each PRN DAILY PRN MC SEE COMMENTS; Start 03/01/19 at 08:30; Status UNV Info (PHARMACY MONITORING -- do not chart) 1 each PRN DAILY PRN MC SEE COMMENTS; Start 03/01/19 at 08:30 Amlodipine Besylate (Norvasc) 10 mg DAILY PO Last administered on 03/02/19at 08:31; Start 03/01/19 at 15:00 Ferrous Sulfate (Feosol) 325 mg MoWeFr@0900 PO Last administered on 03/01/19at 14:36; Start 03/01/19 at 15:00 Furosemide (Lasix) 80 mg DAILY PO Last administered on 03/02/19at 08:30; Start 03/01/19 at 15:00 Gabapentin (Neurontin) 600 mg PRN DAILY PRN PO NERVE PAIN; Start 03/01/19 at 14:00; Stop 03/01/19 at 14:22; Status DC Insulin Human Lispro (HumaLOG) 5 units TIDWMEALS SQ ; Start 03/01/19 at 17:00; Stop 03/01/19 at 17:00; Status DC Insulin Glargine (Lantus) 18 units DAILY SQ ; Start 03/02/19 at 09:00; Stop 03/02/19 at 09:00; Status DC Warfarin Sodium (Coumadin) 5 mg QM-F PO Last administered on 03/01/19at 16:06; Start 03/01/19 at 16:00 Insulin Human Lispro (HumaLOG) 0-7 UNITS TIDWMEALS SQ Last administered on 03/01/19at 18:41; Start 03/01/19 at 17:00 Dextrose (Dextrose 50%-Water Syringe) 12.5 gm PRN Q15MIN PRN IV SEE COMMENTS; Start 03/01/19 at 14:00; Status UNV Insulin Glargine (Lantus) 22 units DAILY SQ ; Start 03/01/19 at 14:30; Stop 03/01/19 at 14:47; Status DC Insulin Human Lispro (HumaLOG) 10 units TIDWMEALS SQ Last administered on 03/01/19at 18:42; Start 03/01/19 at 14:30 Gabapentin (Neurontin) 300 mg TID PO Last administered on 03/02/19at 08:30; Start 03/01/19 at 15:00 Zolpidem Tartrate (Ambien) 5 mg PRN QHS PRN PO INSOMNIA Last administered on 03/01/19at 21:01; Start 03/01/19 at 14:30 Insulin Glargine (Lantus) 22 units HS SQ ; Start 03/01/19 at 21:00 Warfarin Sodium (Coumadin) 5 mg QSA PO ; Start 03/04/19 at 16:00 Warfarin Sodium (Coumadin) 7.5 mg QSU PO ; Start 03/05/19 at 16:00 Warfarin Sodium (Coumadin Per Physician) 1 each PRN DAILY PRN MC SEE COMMENTS; Start 03/01/19 at 16:00; Stop 03/01/19 at 16:06; Status DC Warfarin Sodium (Coumadin Per Pharmacy) 1 each PRN DAILY PRN MC SEE COMMENTS; Start 03/01/19 at 16:00 Insulin Human Lispro (HumaLOG) 18 units 1X ONCE SQ Last administered on 03/02/19at 08:39; Start 03/02/19 at 08:15; Stop 03/02/19 at 08:16; Status DC Active Scripts Active Reported Warfarin Sodium 5 Mg Tablet 1.5 Tab PO QSU Levemir (Insulin Detemir) 100 Unit/1 Ml Vial 22 Unit SQ DAILY Novolog (Insulin Aspart) 100 Unit/1 Ml Cartridge 10 Unit SQ TIDWMEALS Warfarin Sodium 5 Mg Tablet 1 Tab PO [id number] Furosemide 80 Mg Tablet 80 Mg PO DAILY Amlodipine Besylate 10 Mg Tablet 10 Mg PO DAILY Ferrous Sulfate 325 Mg Tablet 1 Tab PO QMWF Gabapentin (Gabapentin) 300 Mg Capsule 2 Cap PO PRN DAILY PRN Vitals/I & O Vital Sign - Last 24 Hours 03/01/19 03/01/19 03/01/19 03/01/19 14:37 14:46 16:30 17:00 Temp 98.2 98.8 98.2 98.8 Pulse 103 92 62 Resp 14 16 B/P (MAP) 119/73 119/73 (88) 99/66 (77) Pulse Ox 98 97 O2 Delivery Room Air Room Air Room Air 03/01/19 03/01/19 03/01/19 03/02/19 19:00 20:30 22:33 02:46 Temp 98.4 98.7 99.1 98.4 98.7 99.1 Pulse 95 88 80 Resp 16 17 15 B/P (MAP) 96/63 (74) 102/60 (74) 116/71 (86) Pulse Ox 99 97 97 O2 Delivery Room Air Room Air Room Air Room Air 03/02/19 03/02/19 07:00 08:31 Temp 98.6 98.6 Pulse 91 91 Resp 18 B/P (MAP) 107/63 (78) 107/63 Pulse Ox 98 O2 Delivery Room Air Intake and Output 03/01/19 03/01/19 03/02/19 15:00 23:00 07:00 Intake Total 636 ml 500 ml 590 ml Balance 636 ml 500 ml 590 ml JORGE MAN III DO Mar 02, 2019 10:54
[2019-03-02 11:00] VITALS: BP 102/63
--- NOTE | 2019-03-02 12:47 | NUR ---
Pharmacy Warfarin Dosing Note S:Pharmacy consulted to assist with anticoagulation therapy started with target INR: 2 -3 O:UMER VANCE is a 63 year old M with DVT/PE LABS: Last INR: 1.1 Last HGB: 12.1 Last HCT: Last PLT: 119 Last dose of 5 mg given on 03/01/19 at 1600 Previous Regimen: Vitamin K given: Drug Interaction Changes: Ongoing Drug Interactions: A:INR of 1.1 is below desired range. Target range for this patient is: 2 -3 P: Warfarin dose: 7.5 mg Today at 1600 Bridge Therapy: Next INR due IN AM Pharmacy anticoagulation service will continue to follow. RAMON JONES [facility], 03/02/19 0633
--- NOTE | 2019-03-02 12:57 | PDOC ---
SUBJECTIVE ROS No complaints OBJECTIVE Vital Signs Vital Signs Date Time Temp Pulse Resp B/P (MAP) Pulse Ox O2 Delivery O2 Flow Rate FiO2 03/02/19 11:00 97.8 72 18 102/63 (76) 99 Room Air 97.8 I & 0 Intake and Output 03/02/19 07:00 Intake Total 1726 ml Balance 1726 ml Intake Oral 1726 ml PHYSICAL EXAM Physical Exam GEN: NAD, sleeping, easily arousable HEEN: OM moist Neck- Supple Lungs- CTA ant , Non labored CV RRR Abs -NT : No CVA tenderness, No Suprapubic Tenderness, No [place] Skin No rash Neuro- grossly normal DIAGNOSIS/ASSESSMENT Assessment & Plan ESRD- On HD MWF Missed HD for a week- states due to personal reasons he cannot share Dialyzed yesterday, No Indication today Hyperkalemia K 6.7 at presentation Missed a week , Normal after HD Anemia- Hgb stable, No indication for MIKEY DM per Primary HTN- Home meds Hypocalcemia -may need to adjust Binders (if he is on ) as OP Dc per Primary Post Dc HD MWF as OP COMMENT/RELEVANT DATA Meds Current Medications Medications (Trade) Dose Ordered Sig/Raymon Start Time Stop Time Status Last Admin Dose Admin Amlodipine Besylate (Norvasc) 10 mg DAILY 03/01/19 15:00 03/02/19 08:31 10 MG Calcium Gluconate (Calcium Gluconate) 1,000 mg 1X ONCE 03/01/19 05:30 03/01/19 05:31 DC 03/01/19 05:42 1,000 MG Dextrose (Dextrose 50%-Water Syringe) 12.5 gm PRN Q15MIN PRN 03/01/19 14:00 UNV Ferrous Sulfate (Feosol) 325 mg MoWeFr@0900 03/01/19 15:00 03/01/19 14:36 325 MG Furosemide (Lasix) 80 mg DAILY 03/01/19 15:00 03/02/19 08:30 80 MG Gabapentin (Neurontin) 300 mg TID 03/01/19 15:00 03/02/19 08:30 300 MG Info (PHARMACY MONITORING -- do not chart) 1 each PRN DAILY PRN 03/01/19 08:30 Insulin Glargine (Lantus) 22 units HS 03/01/19 21:00 Insulin Human Lispro (HumaLOG) 18 units 1X ONCE 03/02/19 08:15 03/02/19 08:16 DC 03/02/19 08:39 18 UNITS Insulin Human Regular (HumuLIN R VIAL) 10 unit 1X ONCE 03/01/19 05:30 03/01/19 05:31 DC 03/01/19 05:44 10 UNIT Ondansetron HCl (Zofran) 4 mg PRN Q8HRS PRN 03/01/19 05:30 03/02/19 05:29 DC Sodium Bicarbonate (Sodium Bicarb Adult 8.4% Syr) 50 meq 1X ONCE 03/01/19 05:30 03/01/19 05:31 DC 03/01/19 05:42 50 MEQ Sodium Chloride 1,000 ml @ 400 mls/hr Q2H30M PRN 03/01/19 08:30 03/01/19 15:00 DC Warfarin Sodium (Coumadin Per Pharmacy) 1 each PRN DAILY PRN 03/01/19 16:00 03/02/19 12:46 1 EACH Warfarin Sodium (Coumadin Per Physician) 1 each PRN DAILY PRN 03/01/19 16:00 03/01/19 16:06 DC Warfarin Sodium (Coumadin) 2.5 mg 1X WARF ONCE 03/02/19 16:00 03/02/19 16:01 Zolpidem Tartrate (Ambien) 5 mg PRN QHS PRN 03/01/19 14:30 03/01/19 21:01 5 MG Lab Laboratory Tests Test 03/01/19 13:47 03/01/19 15:00 03/01/19 17:13 03/01/19 20:42 Glucose (Fingerstick) 367 mg/dL (70-99) 208 mg/dL (70-99) 97 mg/dL (70-99) Prothrombin Time 13.4 SEC (11.7-14.0) Prothromb Time International Ratio 1.1 (0.8-1.1) Test 03/02/19 04:37 03/02/19 07:29 03/02/19 11:32 White Blood Count 5.3 x10^3/uL (4.0-11.0) Red Blood Count 4.24 x10^6/uL (4.30-5.70) Hemoglobin 12.1 g/dL (13.0-17.5) Hematocrit 37.2 % (39.0-53.0) Mean Corpuscular Volume 88 fL (79-100) Mean Corpuscular Hemoglobin 29 pg (25-35) Mean Corpuscular Hemoglobin Concent 33 g/dL (31-37) Red Cell Distribution Width 16.0 % (11.5-14.5) Platelet Count 119 x10^3/uL (140-400) Neutrophils (%) (Auto) 58 % (31-73) Lymphocytes (%) (Auto) 28 % (24-48) Monocytes (%) (Auto) 11 % (0-9) Eosinophils (%) (Auto) 2 % (0-3) Basophils (%) (Auto) 1 % (0-3) Neutrophils # (Auto) 3.0 x10^3uL (1.8-7.7) Lymphocytes # (Auto) 1.4 x10^3/uL (1.0-4.8) Monocytes # (Auto) 0.6 x10^3/uL (0.0-1.1) Eosinophils # (Auto) 0.1 x10^3/uL (0.0-0.7) Basophils # (Auto) 0.0 x10^3/uL (0.0-0.2) Prothrombin Time 13.3 SEC (11.7-14.0) Prothromb Time International Ratio 1.0 (0.8-1.1) Sodium Level 137 mmol/L (136-145) Potassium Level 5.1 mmol/L (3.5-5.1) Chloride Level 98 mmol/L (98-107) Carbon Dioxide Level 27 mmol/L (21-32) Anion Gap 12 (6-14) Blood Urea Nitrogen 41 mg/dL (8-26) Creatinine 8.5 mg/dL (0.7-1.3) Estimated GFR (Cockcroft-Gault) 7.7 BUN/Creatinine Ratio 5 (6-20) Glucose Level 260 mg/dL (70-99) Calcium Level 6.9 mg/dL (8.5-10.1) Total Bilirubin 0.2 mg/dL (0.2-1.0) Aspartate Amino Transf (AST/SGOT) 16 U/L (15-37) Alanine Aminotransferase (ALT/SGPT) 13 U/L (16-63) Alkaline Phosphatase 112 U/L (46-116) Total Protein 7.1 g/dL (6.4-8.2) Albumin 3.3 g/dL (3.4-5.0) Albumin/Globulin Ratio 0.9 (1.0-1.7) Glucose (Fingerstick) 461 mg/dL (70-99) 210 mg/dL (70-99) Results All relevant outside records, renal labs, imaging studies, telemetry/EKG's were reviewed. NNAMDI TESFAYE MD Mar 02, 2019 12:57
[2019-03-02 15:00] VITALS: BP 99/62
[2019-03-02] MEDS ORDERED: WARFARIN 2.5 MG TABLET. PO ONE (16:00)
[2019-03-02] MEDS: WARFARIN 5 MG TABLET. PO SCH (16:04)
[2019-03-02 19:00] VITALS: BP 149/77
[2019-03-02] MEDS: INSULIN GLARGINE 300 UNITS/3 ML INSULN.PEN. SQ SCH (22:11)
[2019-03-02 22:40] VITALS: BP 142/79
[2019-03-03 03:00] VITALS: BP 101/69
--- NOTE | 2019-03-03 05:00 | NUR ---
Patient reported to have indigestion, 'i need a tums'...the patient has eaten, witnessed, 10 ice cream sups, 4 sherbet cups, 4 puddings, 4 applesauce cups, through the night. Patient is given crackers and diet lemon [place] soda, 'i never heard of this for heartburn..' Patient is encouraged to eat crackers slowly. Monitoring. Addendum: 03/03/19 at 0532 by CHARLES GAMBINO RN Staff found hospital's sugar canister in room. Had styrofoam cup filled with packets of mayonnaise, but at time of indigestion, 2 packets of the mayonnaise were found in the styro cup.
[2019-03-03 05:09] LABS: PROTHROMBIN TIME PATIENT 13.7 SEC (11.7-14.0)
[2019-03-03 06:22] VITALS: BP 127/72
--- NOTE | 2019-03-03 06:25 | NUR ---
Patient spoke with Sandra augustin, 'I told that nurse I had chest pain, and she just gave me crackers..' Sandra asked 'chest pain or indigestion', to which patient informs indigestion, sandra asks, so not chest pain, patient states 'that's what I said' not chest pain, indigestion. To monitor,
[2019-03-03] MEDS ORDERED: IV NORMAL SALINE 1000ML BAG 1,000 ML IV PRN ×2 (08:07)
[2019-03-03] MEDS ORDERED: DIALYSIS PATIENT. MC PRN ×2 (08:15)
[2019-03-03] MEDS ORDERED: CALCIUM CARBONATE 500 MG TAB.CHEW PO PRN (08:15)
[2019-03-03] MEDS ORDERED: LIDOCAINE 1% PF 2 ML VIAL. INJ ONE (08:15)
[2019-03-03] MEDS ORDERED: INSULIN LISPRO 300 UNITS/3 ML INSULN.PEN. SQ ONE (08:30)
[2019-03-03] MEDS: INSULIN LISPRO 300 UNITS/3 ML INSULN.PEN. SQ SCH ×2 (08:33→12:00)
[2019-03-03 11:00] VITALS: BP 116/73
[2019-03-03] MEDS ORDERED: AMLO10TA8 PO (11:26)
[2019-03-03] MEDS ORDERED: FURO80TA3 PO (11:26)
[2019-03-03] MEDS ORDERED: FERR325T14 PO (11:26)
[2019-03-03] MEDS ORDERED: INSU100I13 SQ (11:26)
[2019-03-03] MEDS ORDERED: INSU100I11 SQ (11:26)
[2019-03-03] MEDS ORDERED: GABA300C18 PO (11:26)
--- NOTE | 2019-03-03 11:28 | PDOC3 ---
Discharge Summary Visit Information Date of Admission: Mar 01, 2019 Date of Discharge: Mar 03, 2019 Admitting Diagnosis Comment: acute hyperkalemia non-compliance ESRD on HD anemai of ESRD Hypertension Diabetes type 2 uncontrolled Brief Hospital Course Allergies Allergies Coded Allergies Type Severity Reaction Last Updated Verified prednisone Allergy Intermediate 03/01/19 Yes Vital Signs Vital Signs Date Time Temp Pulse Resp B/P (MAP) Pulse Ox O2 Delivery O2 Flow Rate FiO2 03/03/19 11:00 97.9 83 14 116/73 (87) 96 Room Air 97.9 Lab Results Laboratory Tests Test 03/01/19 13:47 03/01/19 15:00 03/01/19 17:13 03/01/19 20:42 Glucose (Fingerstick) 367 mg/dL (70-99) 208 mg/dL (70-99) 97 mg/dL (70-99) Prothrombin Time 13.4 SEC (11.7-14.0) Prothromb Time International Ratio 1.1 (0.8-1.1) Test 03/02/19 04:37 03/02/19 07:29 03/02/19 11:32 03/02/19 16:42 White Blood Count 5.3 x10^3/uL (4.0-11.0) Red Blood Count 4.24 x10^6/uL (4.30-5.70) Hemoglobin 12.1 g/dL (13.0-17.5) Hematocrit 37.2 % (39.0-53.0) Mean Corpuscular Volume 88 fL (79-100) Mean Corpuscular Hemoglobin 29 pg (25-35) Mean Corpuscular Hemoglobin Concent 33 g/dL (31-37) Red Cell Distribution Width 16.0 % (11.5-14.5) Platelet Count 119 x10^3/uL (140-400) Neutrophils (%) (Auto) 58 % (31-73) Lymphocytes (%) (Auto) 28 % (24-48) Monocytes (%) (Auto) 11 % (0-9) Eosinophils (%) (Auto) 2 % (0-3) Basophils (%) (Auto) 1 % (0-3) Neutrophils # (Auto) 3.0 x10^3uL (1.8-7.7) Lymphocytes # (Auto) 1.4 x10^3/uL (1.0-4.8) Monocytes # (Auto) 0.6 x10^3/uL (0.0-1.1) Eosinophils # (Auto) 0.1 x10^3/uL (0.0-0.7) Basophils # (Auto) 0.0 x10^3/uL (0.0-0.2) Prothrombin Time 13.3 SEC (11.7-14.0) Prothromb Time International Ratio 1.0 (0.8-1.1) Sodium Level 137 mmol/L (136-145) Potassium Level 5.1 mmol/L (3.5-5.1) Chloride Level 98 mmol/L (98-107) Carbon Dioxide Level 27 mmol/L (21-32) Anion Gap 12 (6-14) Blood Urea Nitrogen 41 mg/dL (8-26) Creatinine 8.5 mg/dL (0.7-1.3) Estimated GFR (Cockcroft-Gault) 7.7 BUN/Creatinine Ratio 5 (6-20) Glucose Level 260 mg/dL (70-99) Calcium Level 6.9 mg/dL (8.5-10.1) Total Bilirubin 0.2 mg/dL (0.2-1.0) Aspartate Amino Transf (AST/SGOT) 16 U/L (15-37) Alanine Aminotransferase (ALT/SGPT) 13 U/L (16-63) Alkaline Phosphatase 112 U/L (46-116) Total Protein 7.1 g/dL (6.4-8.2) Albumin 3.3 g/dL (3.4-5.0) Albumin/Globulin Ratio 0.9 (1.0-1.7) Glucose (Fingerstick) 461 mg/dL (70-99) 210 mg/dL (70-99) 146 mg/dL (70-99) Test 03/02/19 20:34 03/03/19 04:00 03/03/19 07:43 Glucose (Fingerstick) 367 mg/dL (70-99) 351 mg/dL (70-99) Prothrombin Time 13.7 SEC (11.7-14.0) Prothromb Time International Ratio 1.1 (0.8-1.1) Laboratory Tests Test 03/02/19 11:32 03/02/19 16:42 03/02/19 20:34 03/03/19 04:00 Glucose (Fingerstick) 210 mg/dL (70-99) 146 mg/dL (70-99) 367 mg/dL (70-99) Prothrombin Time 13.7 SEC (11.7-14.0) Prothromb Time International Ratio 1.1 (0.8-1.1) Test 03/03/19 07:43 Glucose (Fingerstick) 351 mg/dL (70-99) Brief Hospital Course Mr. Savage is a 63 old [place] Egyptian male with noncompliance, ESRD goes Wednesday, came in with acute hyperkalemia, hypertension and DM 2 that is uncontrolled. I needed to up his dose of insulin namely from 22 units to 30 units daily at bedtime and from 10units 3 times a day to 15units 3 times a day mealtimes I have written all his prescriptions because I am unsure if he has still scripts at home - again very noncompliant Took significant time 30 minutes in discharge in total scripts Consults performed renal Procedures performed dialysis Discharge Information Condition at Discharge: Improved, Stable Follow Up: Weeks (PCP 4 weeks) Disposition/Orders: D/C to Home Scheduled Amlodipine Besylate (Amlodipine Besylate) 10 Mg Tablet, 10 MG PO DAILY for HIGH BLOOD PRESSURE MDD 1, #60 Prescribed by: ABDIAS GREWAL on 03/03/19 1126 Ferrous Sulfate (Ferrous Sulfate) 325 Mg Tablet, 1 TAB PO QMWF for IRON DEFICIENT MDD 1, #30 Ref 3 Prescribed by: ABDIAS GREWAL on 03/03/19 1126 Furosemide (Furosemide) 80 Mg Tablet, 80 MG PO DAILY for FLUID RETENTION MDD 1, #60 Prescribed by: ABDIAS GREWAL on 03/03/19 1126 Gabapentin (Gabapentin) 300 Mg Capsule, 300 MG PO TID for neuopathy MDD 1, #90 Prescribed by: ABDIAS GREWAL on 03/03/19 1126 Insulin Aspart (Novolog) 100 Unit/1 Ml Cartridge, 10 UNIT SQ TIDWMEALS for DM, (Reported) Entered as Reported by: IVY PEREZ on 03/01/19 1007 Last Action: Edited on 03/01/19 1410 by IVY PEREZ Insulin Detemir (Levemir) 100 Unit/1 Ml Vial, 22 UNIT SQ DAILY for DM, (Reported) Entered as Reported by: IVY PEREZ on 03/01/19 1007 Last Action: Edited on 03/01/191409 by IVY PEREZ Insulin Glargine,Hum.rec.anlog (Lantus Solostar) 100 Unit/1 Ml Insuln.pen, 30 UNITS SQ HS for dm MDD 1 for 30 Days Prescribed by: ABDIAS GREWAL on 03/03/19 1126 Insulin Lispro (Humalog) 100 Unit/1 Ml Insuln.pen, 15 UNITS SQ TIDWMEALS for dm MDD 1 for 30 Days Prescribed by: ABDIAS GREWAL on 03/03/19 1126 Warfarin Sodium (Warfarin Sodium) 5 Mg Tablet, 1 TAB PO [id number] for blood thinner, #30 (Reported) Entered as Reported by: TABITHA CLEMONS on 11/20/183 Last Action: Edited on 03/01/191416 by IVY PEREZ Warfarin Sodium (Warfarin Sodium) 5 Mg Tablet, 1.5 TAB PO QSU for history DVT, #30 (Reported) Entered as Reported by: IVY PEREZ on 03/01/19 141 Last Action: Edited on 03/01/191416 by IVY PEREZ Scheduled PRN Gabapentin (Gabapentin ) 300 Mg Capsule, 2 CAP PO PRN DAILY PRN for NERVE PAIN, #90 Ref 5 (Reported) Entered as Reported by: JEISON GOEL on 08/19/14 2210 Last Action: Continued on 03/01/19 1359 by ERVIN BOOGIE Discontinued Medications Insulin Glargine,Hum.rec.anlog (Lantus Solostar) 100 Unit/1 Ml Insuln.pen, 22 UNIT SQ QHS for diabetes, #15 Ref 3 (Reported) Discontinued Reason: Prescription changed Entered as Reported by: DOMINIC LOVE on 11/21/18 1520 Insulin Lispro (Humalog) 100 Unit/1 Ml Insuln.pen, 8 UNIT SQ TIDBFRMEAL for blood sugar, (Reported) Discontinued Reason: Prescription changed Entered as Reported by: DOMINIC LOVE on 11/21/18 1014 ABDIAS GREWAL MD Mar 03, 2019 11:28
[2019-03-03] MEDS ORDERED: INSULIN LISPRO 300 UNITS/3 ML INSULN.PEN. SQ SCH (12:00)
[2019-03-03 12:13] LABS: HEMOGLOBIN A1C 10.4 % (4.8-5.6)
--- NOTE | 2019-03-03 12:13 | NUR ---
Pharmacy Warfarin Dosing Note S:Pharmacy consulted to assist with anticoagulation therapy started with target INR: 2 -3 O:UMER VANCE is a 63 year old M with DVT/PE LABS: Last INR: 1.1 Last HGB: 12.1 Last HCT: Last PLT: 119 Last dose of 7.5 mg given on 03/02/19 at 1605 Previous Regimen: Vitamin K given: Drug Interaction Changes: Ongoing Drug Interactions: A:INR of 1.1 is below desired range. Target range for this patient is: 2 -3 P: Warfarin dose: 7.5 mg Today at 1600 Bridge Therapy: NONE Next INR due 03/04/19 Pharmacy anticoagulation service will continue to follow. DAHIANA CANDELARIO [facility], 03/03/19 0196
[2019-03-03] MEDS: FERROUS SULFATE 325 MG TABLET. PO SCH (13:14)
[2019-03-03] MEDS: amLODIPine BESYLATE 10 MG TABLET PO SCH (13:15)
[2019-03-03] MEDS: FUROSEMIDE 80 MG TABLET. PO SCH (13:15)
[2019-03-03] MEDS: GABAPENTIN 300 MG CAPSULE. PO SCH ×2 (13:15→14:00)
--- NOTE | 2019-03-03 14:23 | NUR ---
AM meds: Pt did not want to take meds when they were do this am. Gave meds later after pt ate breakfast, at his request.
--- NOTE | 2019-03-03 14:24 | NUR ---
Pt stated he does not want to wait until after dialysis to be discharged. Spoke with Dr Han, she stated if the pt leaves prior to dialysis today he will need to sign out AMA, but she is okay if we give the pt the rx that were written for him. Spoke with pt about concerns with leaving prior to dialysis, he is considering staying for tx. Pt asked why we were "doing me like that", I reminded him that the dialysis nurse came to get him this morning for tx but he refused to go until after he ate breakfast. Told pt to consider his options and let this nurse know what he decides. Will continue to monitor.
[2019-03-03 15:00] VITALS: BP 150/84
--- NOTE | 2019-03-03 15:14 | PDOC ---
SUBJECTIVE ROS No complaints OBJECTIVE Vital Signs Vital Signs Date Time Temp Pulse Resp B/P (MAP) Pulse Ox O2 Delivery O2 Flow Rate FiO2 03/03/19 13:15 83 116/73 03/03/19 11:00 97.9 14 96 Room Air 97.9 I & 0 Intake and Output 03/03/19 07:00 Intake Total 1100 ml Balance 1100 ml Intake Oral 1100 ml # Voids 3 PHYSICAL EXAM Physical Exam GEN: NAD, HEEN: OM moist Neck- Supple Lungs- CTA ant , Non labored CV RRR Abs -NT : No CVA tenderness, No Suprapubic Tenderness, No Villalpando Skin No rash Neuro- grossly normal DIAGNOSIS/ASSESSMENT Assessment & Plan ESRD- On HD MWF Dialysis Today as ordered , [employer] Hyperkalemia K 6.7 at presentation Missed a week , Normal after HD Anemia- Hgb stable, No indication for MIKEY DM per Primary HTN- Home meds Hypocalcemia -may need to adjust Binders (if he is on ) as OP COMMENT/RELEVANT DATA Meds Current Medications Medications (Trade) Dose Ordered Sig/Raymon Start Time Stop Time Status Last Admin Dose Admin Amlodipine Besylate (Norvasc) 10 mg DAILY 03/01/19 15:00 03/03/19 13:15 10 MG Calcium Carbonate/ Glycine (Tums) 500 mg PRN AFTMEALHC PRN 03/03/19 08:15 Calcium Gluconate (Calcium Gluconate) 1,000 mg 1X ONCE 03/01/19 05:30 03/01/19 05:31 DC 03/01/19 05:42 1,000 MG Dextrose (Dextrose 50%-Water Syringe) 12.5 gm PRN Q15MIN PRN 03/01/19 14:00 UNV Ferrous Sulfate (Feosol) 325 mg MoWeFr@0900 03/01/19 15:00 03/03/19 13:14 325 MG Furosemide (Lasix) 80 mg DAILY 03/01/19 15:00 03/03/19 13:15 80 MG Gabapentin (Neurontin) 300 mg TID 03/01/19 15:00 03/03/19 13:15 300 MG Info (PHARMACY MONITORING -- do not chart) 1 each PRN DAILY PRN 03/03/19 08:15 UNV Insulin Glargine (Lantus) 30 units HS 03/03/19 21:00 Insulin Human Lispro (HumaLOG) 10 units 1X ONCE 03/03/19 08:30 03/03/19 08:31 DC 03/03/19 08:38 10 UNITS Insulin Human Regular (HumuLIN R VIAL) 10 unit 1X ONCE 03/01/19 05:30 03/01/19 05:31 DC 03/01/19 05:44 10 UNIT Lidocaine HCl (Xylocaine-Mpf 1% 2ml Vial) 2 ml 1X ONCE 03/03/19 08:15 03/03/19 08:16 DC Ondansetron HCl (Zofran) 4 mg PRN Q8HRS PRN 03/01/19 05:30 03/02/19 05:29 DC Sodium Bicarbonate (Sodium Bicarb Adult 8.4% Syr) 50 meq 1X ONCE 03/01/19 05:30 03/01/19 05:31 DC 03/01/19 05:42 50 MEQ Sodium Chloride 1,000 ml @ 400 mls/hr Q2H30M PRN 03/03/19 08:07 03/03/19 20:06 Warfarin Sodium (Coumadin Per Pharmacy) 1 each PRN DAILY PRN 03/01/19 16:00 03/03/19 12:12 1 EACH Warfarin Sodium (Coumadin Per Physician) 1 each PRN DAILY PRN 03/01/19 16:00 03/01/19 16:06 DC Warfarin Sodium (Coumadin) 7.5 mg 1X WARF ONCE 03/03/19 16:00 03/03/19 16:01 Zolpidem Tartrate (Ambien) 5 mg PRN QHS PRN 03/01/19 14:30 03/01/19 21:01 5 MG Lab Laboratory Tests Test 03/02/19 16:42 03/02/19 20:34 03/03/19 04:00 03/03/19 07:43 Glucose (Fingerstick) 146 mg/dL (70-99) 367 mg/dL (70-99) 351 mg/dL (70-99) Prothrombin Time 13.7 SEC (11.7-14.0) Prothromb Time International Ratio 1.1 (0.8-1.1) Test 03/03/19 11:40 Glucose (Fingerstick) 139 mg/dL (70-99) Results All relevant outside records, renal labs, imaging studies, telemetry/EKG's were reviewed. BRIEN,NNAMDI MD Mar 03, 2019 15:13
[2019-03-03] MEDS ORDERED: WARFARIN 7.5 MG TABLET. PO ONE (16:00)
[2019-03-03] MEDS ORDERED: LIDOCAINE 1% PF 2 ML VIAL. ONE (16:48)
[2019-03-03] MEDS ORDERED: INSULIN GLARGINE 300 UNITS/3 ML INSULN.PEN. SQ SCH (21:00)
--- NOTE | 2019-03-03 21:05 | NUR ---
Patient taken to front entry for d/c, per w/c. discharge paperwork signed, scripts and their teachings along with patient. aPatient also related that he has all of his belongings. IV site removed per DUGLAS Reynaga, taped. NO further questions asked,
[2019-03-04] MEDS ORDERED: WARFARIN 5 MG TABLET. PO SCH (16:00)
[2019-03-05] MEDS ORDERED: WARFARIN 7.5 MG TABLET. PO SCH (16:00)
== END 2019-03-03 21:10 | disposition home or self-care (01) | DRG 640 ==
LOC: ER 02:04 → 2 NORTH 05:00 → 5 NORTH 16:12
PROVIDERS: ADMIT Internal Medicine; ATTEND Internal Medicine
PROC: 5A1D70Z Performance of Urinary Filtration, Intermittent, Less than 6 Hours Per Day (ICD-10-PCS; principal; 2019-03-01)
PROC: 5A1D70Z Performance of Urinary Filtration, Intermittent, Less than 6 Hours Per Day (ICD-10-PCS; 2019-03-03)
DX: E87.5 Hyperkalemia (principal); N18.6 End stage renal disease; I12.0 Hypertensive chronic kidney disease with stage 5 chronic kidney disease or end stage renal disease; E11.65 Type 2 diabetes mellitus with hyperglycemia; E11.22 Type 2 diabetes mellitus with diabetic chronic kidney disease; Z99.2 Dependence on renal dialysis; M19.90 Unspecified osteoarthritis, unspecified site; E83.51 Hypocalcemia; F17.210 Nicotine dependence, cigarettes, uncomplicated; Z91.19 Patient's noncompliance with other medical treatment and regimen; Z91.14 Patient's other noncompliance with medication regimen; Z79.4 Long term (current) use of insulin; Z83.3 Family history of diabetes mellitus; Z88.8 Allergy status to other drugs, medicaments and biological substances; Z79.899 Other long term (current) drug therapy; Z86.718 Personal history of other venous thrombosis and embolism; Z79.01 Long term (current) use of anticoagulants; Z90.49 Acquired absence of other specified parts of digestive tract; D63.1 Anemia in chronic kidney disease
CPT/HCPCS: 36415; 71045; 80053; 82962; 83036; 84484; 85025; 85610; 93005; 96374; 96375; J0610; J1815; 99285-25

== ENCOUNTER → 2019-03-22 | Outpatient (CLI) | payer MEDICARE ==
[2019-03-03 15:00] VITALS: BP 150/84
[~2019-03-22] MED LIST changes: +INSU100C4 SQ; +INSU100V13 SQ; +LIDO700A21 TD; -LIDO700A39 TD
== END | disposition home or self-care (01) ==
LOC: SPEC 18:00
PROVIDERS: ATTEND Internal Medicine Nephrology
DX: E11.9 Type 2 diabetes mellitus without complications (principal)
CPT/HCPCS: 36415; 84132

== ENCOUNTER → 2019-05-25 | Outpatient (CLI) | payer MEDICARE | END | disposition home or self-care (01) | LOC: LAB 15:24 | PROVIDERS: ATTEND Internal Medicine Nephrology | DX: Z51.81 Encounter for therapeutic drug level monitoring (principal); N18.6 End stage renal disease; Z79.899 Other long term (current) drug therapy | CPT/HCPCS: 36415; 84132 ==

== ENCOUNTER 2019-06-23 15:49 | Inpatient (IN) | payer MEDICARE ==
[~2019-06-23] VITALS: Ht 190.5 cm; Wt 93.7 kg
[2019-06-23] MEDS ORDERED: MORPHINE SULFATE 4 MG/ML VIAL. IV/SQ PRN (16:30)
[2019-06-23] MEDS ORDERED: VANCOMYCIN PER PHARMACY MC ONE (16:30)
[2019-06-23] MEDS ORDERED: PIPERACILLIN/TAZOBACTAM 4.5 GM in IV NORMAL SALINE 100ML 100 ML IV ONE (16:30)
[2019-06-23] MEDS ORDERED: VANCOMYCIN 1.75 GM in IV NORMAL SALINE 500ML BAG 500 ML IV ONE (16:30)
[2019-06-23] MEDS ORDERED: IBUPROFEN 200 MG TABLET. PO ONE (16:30)
[2019-06-23] MEDS ORDERED: HYDROcodone/APAP 5/325MG 1 TAB TABLET PO ONE (16:30)
--- NOTE | 2019-06-23 16:38 | PHYS DOC ---
Past Medical History Past Medical History: Cancer, Diabetes-Type I, DVT, Renal Failure, Other Additional Past Medical Histor: ulcerative colitis. Past Surgical History: Other Additional Past 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 Alcohol Use: Rarely Drug Use: None Adult General Chief Complaint Chief Complaint: PAIN CONTROL HPI HPI Patient is a 64 year old male with history of diabetes type 2, hypertension, high cholesterol, end-stage kidney disease on dialysis Wednesday was today eyes dialysis, and presents to the ED today complaining of weakness to bilateral upper and lower extremities that began as soon as they could tomorrow to the dialysis machine. This was around 11:30 this morning. Patient states he had 2 hours of dialysis and decided they need to disconnect him and send him to the hospital. He is a poor historian right now refusing to cooperate when we ask many questions. Review of Systems Review of Systems Constitutional: Denies fever or chills [] Eyes: Denies change in visual acuity, redness, or eye pain [] HENT: Denies nasal congestion or sore throat [] Respiratory: Denies cough or shortness of breath [] Cardiovascular: No additional information not addressed in HPI [] GI: Denies abdominal pain, nausea, vomiting, bloody stools or diarrhea [] : Denies dysuria or hematuria [] Musculoskeletal: Reports weakness to bilateral upper and lower extremities. Denies back pain or joint pain [] Integument: Denies rash or skin lesions [] Neurologic: Denies headache, focal weakness or sensory changes [] All other systems were reviewed and found to be within normal limits, except as documented in this note. Current Medications Current Medications Current Medications Medications (Trade) Dose Ordered Sig/Raymon Start Time Stop Time Status Last Admin Dose Admin Acetaminophen/ Codeine Phosphate (Tylenol #3) 1 tab PRN Q6HRS PRN 06/23/19 18:00 Acetaminophen/ Hydrocodone Bitart (Lortab 10/325) 1 tab PRN Q6HRS PRN 06/23/19 18:15 Acetaminophen/ Hydrocodone Bitart (Lortab 5/325) 2 tab 1X ONCE 06/23/19 16:30 06/23/19 16:31 DC 06/23/19 16:56 2 TAB Amlodipine Besylate (Norvasc) 10 mg DAILY 06/24/19 09:00 Dextrose (Dextrose 50%-Water Syringe) 12.5 gm PRN Q15MIN PRN 06/23/19 18:00 Fentanyl Citrate (Fentanyl 2ml Vial) 50 mcg PRN Q1HR PRN 06/23/19 18:30 06/24/19 18:29 Ferrous Sulfate (Feosol) 325 mg MoWeFr@0900 06/26/19 09:00 Furosemide (Lasix) 80 mg DAILY 06/24/19 09:00 Gabapentin (Neurontin) 100 mg BID 06/23/19 21:00 Ibuprofen (Motrin) 600 mg 1X ONCE 06/23/19 16:30 06/23/19 16:31 DC 06/23/19 16:56 600 MG Insulin Glargine (Lantus Syringe) 30 unit QHS 06/23/19 21:00 Insulin Human Lispro (HumaLOG) 0-9 UNITS TIDWMEALS 06/24/19 08:00 Morphine Sulfate (Morphine Sulfate) 4 mg PRN Q15MIN PRN 06/23/19 16:30 06/24/19 16:29 Ondansetron HCl (Zofran) 4 mg PRN Q8HRS PRN 06/23/19 18:30 06/24/19 18:29 Piperacillin Sod/ Tazobactam Sod 4.5 gm/Sodium Chloride 100 ml @ 200 mls/hr 1X ONCE 06/23/19 16:30 06/23/19 16:59 DC 06/23/19 16:57 200 MLS/HR Vancomycin HCl (Vanco Per Pharmacy) 1 each 1X ONCE 06/23/19 16:30 06/23/19 16:31 DC Vancomycin HCl 1.75 gm/Sodium Chloride 500 ml @ 250 mls/hr 1X ONCE 06/23/19 16:30 06/23/19 18:29 DC 06/23/19 18:21 250 MLS/HR Warfarin Sodium (Coumadin Per Physician) 1 each PRN DAILY PRN 06/23/19 18:00 Warfarin Sodium (Coumadin) 5 mg MoTuWeThFrSa@1600 06/24/19 16:00 Allergies Allergies Allergies Coded Allergies Type Severity Reaction Last Updated Verified prednisone Allergy Intermediate 03/01/19 Yes Physical Exam Physical Exam Constitutional: Well developed, well nourished, no acute distress, non-toxic appearance. [] HENT: Normocephalic, atraumatic, bilateral external ears normal, oropharynx moist, no oral exudates, nose normal. [] Eyes: PERRLA, EOMI, conjunctiva normal, no discharge. [] Neck: Normal range of motion, no tenderness, supple, no stridor. [] Cardiovascular:Heart rate regular rhythm, no murmur [] Lungs & Thorax: Bilateral breath sounds clear to auscultation [] Abdomen: Bowel sounds normal, soft, no tenderness, no masses, no pulsatile masses. [] Skin: Very dry scaly skin, dialysis fistula noted in the right upper extremity with positive bruit and thrill. Back: No tenderness, no CVA tenderness. [] Extremities: No tenderness, no cyanosis, no clubbing, ROM intact, no edema. [] Neurologic: Alert and oriented X 3, normal motor function, normal sensory function, no focal deficits noted. Cranial nerves II through XII intact Psychologic: Flat affect Current Patient Data Vital Signs Vital Signs Date Time Temp Pulse Resp B/P (MAP) Pulse Ox O2 Delivery O2 Flow Rate FiO2 06/23/19 18:21 20 06/23/19 18:15 100 06/23/19 17:15 99 06/23/19 16:18 101.6 134/72 (92) Room Air 101.6 Lab Values Laboratory Tests Test 06/23/19 17:00 White Blood Count 9.2 x10^3/uL (4.0-11.0) Red Blood Count 4.03 x10^6/uL (4.30-5.70) L Hemoglobin 11.5 g/dL (13.0-17.5) L Hematocrit 34.7 % (39.0-53.0) L Mean Corpuscular Volume 86 fL (79-100) Mean Corpuscular Hemoglobin 29 pg (25-35) Mean Corpuscular Hemoglobin Concent 33 g/dL (31-37) Red Cell Distribution Width 14.4 % (11.5-14.5) Platelet Count 110 x10^3/uL (140-400) L Neutrophils (%) (Auto) 89 % (31-73) H Lymphocytes (%) (Auto) 5 % (24-48) L Monocytes (%) (Auto) 6 % (0-9) Eosinophils (%) (Auto) 0 % (0-3) Basophils (%) (Auto) 0 % (0-3) Neutrophils # (Auto) 8.2 x10^3/uL (1.8-7.7) H Lymphocytes # (Auto) 0.5 x10^3/uL (1.0-4.8) L Monocytes # (Auto) 0.5 x10^3/uL (0.0-1.1) Eosinophils # (Auto) 0.0 x10^3/uL (0.0-0.7) Basophils # (Auto) 0.0 x10^3/uL (0.0-0.2) Sodium Level 138 mmol/L (136-145) Potassium Level 4.1 mmol/L (3.5-5.1) Chloride Level 100 mmol/L (98-107) Carbon Dioxide Level 29 mmol/L (21-32) Anion Gap 9 (6-14) Blood Urea Nitrogen 17 mg/dL (8-26) Creatinine 2.1 mg/dL (0.7-1.3) H Estimated GFR (Cockcroft-Gault) 38.7 BUN/Creatinine Ratio 8 (6-20) Glucose Level 170 mg/dL (70-99) H Lactic Acid Level 1.6 mmol/L (0.4-2.0) Calcium Level 8.2 mg/dL (8.5-10.1) L Magnesium Level 1.5 mg/dL (1.8-2.4) L Total Bilirubin 0.5 mg/dL (0.2-1.0) Aspartate Amino Transferase (AST) 10 U/L (15-37) L Alanine Aminotransferase (ALT) 10 U/L (16-63) L Alkaline Phosphatase 65 U/L (46-116) Creatine Kinase 122 U/L (39-308) Creatine Kinase MB (Mass) 0.6 ng/mL (0.0-3.6) Creatine Kinase MB Relative Index 0.5 % (0-4) Troponin I Quantitative < 0.017 ng/mL (0.000-0.055) QK-Lkz-T-Type Natriuretic Peptide 1262 pg/mL (0-124) H Total Protein 7.0 g/dL (6.4-8.2) Albumin 3.3 g/dL (3.4-5.0) L Albumin/Globulin Ratio 0.9 (1.0-1.7) L Procalcitonin 1.49 ng/mL (0.00-0.10) H Laboratory Tests 06/23/19 17:00 Laboratory Tests 06/23/19 17:00 EKG EKG [address] Dupree sinus tachycardiac at 110 no STEMI[] Radiology/Procedures Radiology/Procedures []PROCEDURE: PORTABLE CHEST 1V EXAM: Chest, single view. HISTORY: Fever. COMPARISON: 03/01/2019 FINDINGS: A frontal view of the chest is obtained. There is no infiltrate, pleural effusion or pneumothorax. The heart is normal in size. There is a right axillary vascular stent with surrounding surgical clips. IMPRESSION: No acute pulmonary finding. Electronically signed by: Kiesha Forman MD (06/23/2019 4:46 PM) [id number] DICTATED and SIGNED BY: KIESHA FORMAN MD DATE: 06/23/19 7517 PROCEDURE: CT HEAD WO CONTRAST CT HEAD WO CONTRAST Clinical indications: Weakness. COMPARISON: November 20, 2018. Technique: Noncontrast axial cross sectional scanning of the head was performed. PQRS compliance Statement One or more of the following individualized dose reduction techniques were utilized for this study: 1. Automated exposure control 2. Adjustment of the mA and/or kV according to patient size 3. Use of iterative reconstruction technique Findings: No acute intracranial hemorrhage or midline shift or mass-effect or hydrocephalus or extra-axial fluid collection is seen. No focal hypodense area or sulci effacement is seen to indicate an acute infarct or edema radiographically. No skull fracture or pneumocephalus is seen. No opacification of the mastoid sinuses or the middle ear cavities or the paranasal sinuses is seen. The maxillary sinuses are not completely seen in this study. Impression: No acute intracranial abnormality is seen. Electronically signed by: Wilberto Carrillo MD (06/23/2019 4:53 PM) [id number] DICTATED and SIGNED BY: WILBERTO CARRILLO MD DATE: 06/23/191652 Course & Med Decision Making Course & Med Decision Making Pertinent Labs and Imaging studies reviewed. (See chart for details) This is a 64-year-old male patient presenting to the ED today complaining of weakness to bilateral upper extremities and lower extremities that began this morning around 11:30 am while being hooked to the dialysis machine. Patient arrives in the ED refusing to give information. He refused to participate in the stroke scale. He states that is too many things to be asked to do Patient arrives in the ED with a temperature of 101.6, heart rate 107, blood pressure 134/72-year-old. Sepsis workup was initiated with conservative measures on IV fluids due to patient's end-stage renal disease. He was given vancomycin and Zosyn. CT of the head and chest x-ray negative for any acute findings. CBC with a normal WBC, CMP with nothing really acute. Lactic is normal. 1755 Consulted with who accepted patient for admission Emilie Disclaimer Emilie Disclaimer This electronic medical record was generated, in whole or in part, using a voice recognition dictation system. Departure Departure Impression: Primary Impression: ESRD (end stage renal disease) on dialysis Additional Impressions: Generalized weakness Fever Disposition: ADMITTED INPATIENT Condition: STABLE Referrals: UNKNOWN PCP NAME (PCP) Problem Qualifiers Additional Impressions: Fever Fever type: unspecified Qualified Codes: R50.9 - Fever, unspecified ANEL SRINIVASAN APRN Jun 23, 2019 16:38
--- NOTE | 2019-06-23 16:49 | RAD ---
EXAM: Chest, single view. HISTORY: Fever. COMPARISON: 03/01/2019 FINDINGS: A frontal view of the chest is obtained. There is no infiltrate, pleural effusion or pneumothorax. The heart is normal in size. There is a right axillary vascular stent with surrounding surgical clips. IMPRESSION: No acute pulmonary finding. Electronically signed by: Kiesha Powell MD (06/23/2019 4:46 PM) [facility]
--- NOTE | 2019-06-23 16:56 | RAD ---
CT HEAD WO CONTRAST Clinical indications: Weakness. COMPARISON: November 20, 2018. Technique: Noncontrast axial cross sectional scanning of the head was performed. PQRS compliance Statement One or more of the following individualized dose reduction techniques were utilized for this study: 1. Automated exposure control 2. Adjustment of the mA and/or kV according to patient size 3. Use of iterative reconstruction technique Findings: No acute intracranial hemorrhage or midline shift or mass-effect or hydrocephalus or extra-axial fluid collection is seen. No focal hypodense area or sulci effacement is seen to indicate an acute infarct or edema radiographically. No skull fracture or pneumocephalus is seen. No opacification of the mastoid sinuses or the middle ear cavities or the paranasal sinuses is seen. The maxillary sinuses are not completely seen in this study. Impression: No acute intracranial abnormality is seen. Electronically signed by: Talha Carrillo MD (06/23/2019 4:53 PM) [id number]
[2019-06-23 17:22] LABS: BASO % 0 % (0-3); EOS % 0 % (0-3); HEMATOCRIT 34.7 % (39.0-53.0); HEMOGLOBIN 11.5 g/dL (13.0-17.5); LYMPH # 0.5 x10^3/uL (1.0-4.8); LYMPH % 5 % (24-48); MEAN CORPUSCULAR HEMOGLOBIN 29 pg (25-35); MEAN CORPUSCULAR HGB CONC 33 g/dL (31-37); MEAN CORPUSCULAR VOLUME 86 fL (79-100); MONO # 0.5 x10^3/uL (0.0-1.1); MONO % 6 % (0-9); NEUT # 8.2 x10^3/uL (1.8-7.7); NEUT % 89 % (31-73); PLATELET COUNT 110 x10^3/uL (140-400); RED BLOOD COUNT 4.03 x10^6/uL (4.30-5.70); RED CELL DISTRIBUTION WIDTH 14.4 % (11.5-14.5); WHITE BLOOD COUNT 9.2 x10^3/uL (4.0-11.0)
[2019-06-23 17:31] LABS: CALCIUM 8.2 mg/dL (8.5-10.1); CREATININE 2.1 mg/dL (0.7-1.3); GFR 38.7; POTASSIUM 4.1 mmol/L (3.5-5.1)
[2019-06-23 17:42] LABS: ALBUMIN 3.3 g/dL (3.4-5.0); ALBUMIN/GLOBULIN RATIO 0.9 (1.0-1.7); MAGNESIUM 1.5 mg/dL (1.8-2.4); TOTAL BILIRUBIN 0.5 mg/dL (0.2-1.0)
[2019-06-23] MEDS ORDERED: ONDANSETRON PF 4 MG/2 ML VIAL. IVP PRN (18:00)
[2019-06-23] MEDS ORDERED: DEXTROSE 50% 25 GM / 50ML DISP.SYRIN. IV PRN (18:00)
[2019-06-23] MEDS ORDERED: ACETAMINOPHEN/CODEINE 300/30MG TABLET. PO PRN (18:00)
--- NOTE | 2019-06-23 18:05 | PDOC1 ---
History and Physical Date of Admission Date of Admission DATE: 06/23/19 TIME: 17:59 Identification/Chief Complaint Chief Complaint weak Source Source: Caregiver, Chart review, Patient History of Present Illness History of Present Illness 64 AA male, esrd MWF and drove himself and completed HD today. Wasnt feeling ll, drove to ER and found to have fever with no source, Anuric, CXR ok, always diarrhea bec of short gut (hx colon resection), no rash, no open skin lesions, no prta caths or picc lines. EMpiric abx given at ER x 1 after BC drawn. Admitted dea fever work up, Procalcitonin mildly high, ON warf for his med issues, no INR yet, Past Medical History Cardiovascular: HTN Pulmonary: No pertinent hx CENTRAL NERVOUS SYSTEM: Other GI: No pertinent hx Heme/Onc: Anemia NOS, Other Hepatobiliary: Hep A/B/C Psych: No pertinent hx Musculoskeletal: Osteoarthritis Rheumatologic: No pertinent hx Infectious disease: HIV Renal/: Chronic renal insuff, Hematuria Endocrine: Diabetes, Hyperparathyroidism Past Surgical History Past Surgical History: Cholecystectomy, Colectomy Family History Family History: No Significant, Diabetes Social History ALCOHOL: occassional Drugs: Cocaine, Crystal meth Current Medications Current Medications Current Medications Ibuprofen (Motrin) 600 mg 1X ONCE PO Last administered on 06/23/19at 16:56; Start 06/23/19 at 16:30; Stop 06/23/19 at 16:31; Status DC Acetaminophen/ Hydrocodone Bitart (Lortab 5/325) 2 tab 1X ONCE PO Last administered on 06/23/19at 16:56; Start 06/23/19 at 16:30; Stop 06/23/19 at 16:31; Status DC Piperacillin Sod/ Tazobactam Sod 4.5 gm/Sodium Chloride 100 ml @ 200 mls/hr 1X ONCE IV Last administered on 06/23/19at 16:57; Start 06/23/19 at 16:30; Stop 06/23/19 at 16:59; Status DC Vancomycin HCl (Vanco Per Pharmacy) 1 each 1X ONCE MC ; Start 06/23/19 at 16:30; Stop 06/23/19 at 16:31; Status DC Morphine Sulfate (Morphine Sulfate) 4 mg PRN Q15MIN PRN IV/SQ PAIN GREATER THAN 3/10; Start 06/23/19 at 16:30; Stop 06/24/19 at 16:29 Vancomycin HCl 1.75 gm/Sodium Chloride 500 ml @ 250 mls/hr 1X ONCE IV ; Start 06/23/19 at 16:30; Stop 06/23/19 at 18:29 Amlodipine Besylate (Norvasc) 10 mg DAILY PO ; Start 06/24/19 at 09:00 Ferrous Sulfate (Feosol) 325 mg MoWeFr@0900 PO ; Start 06/26/19 at 09:00 Furosemide (Lasix) 80 mg DAILY PO ; Start 06/24/19 at 09:00 Gabapentin (Neurontin) 300 mg TID PO ; Start 06/23/19 at 21:00 Insulin Human Lispro (HumaLOG) 15 units TIDWMEALS SQ ; Start 06/24/19 at 08:00 Warfarin Sodium (Coumadin) 7.5 mg Marinelli@1600 PO ; Start 06/25/19 at 16:00 Warfarin Sodium (Coumadin) 5 mg MoTuWeThFrSa@1600 PO ; Start 06/24/19 at 16:00 Insulin Glargine (Lantus Syringe) 30 unit QHS SQ ; Start 06/23/19 at 21:00 Insulin Human Lispro (HumaLOG) 0-9 UNITS TIDWMEALS SQ ; Start 06/24/19 at 08:00 Dextrose (Dextrose 50%-Water Syringe) 12.5 gm PRN Q15MIN PRN IV SEE COMMENTS; Start 06/23/19 at 18:00 Acetaminophen/ Codeine Phosphate (Tylenol #3) 1 tab PRN Q6HRS PRN PO PAIN; Start 06/23/19 at 18:00 Ondansetron HCl (Zofran) 4 mg PRN Q6HRS PRN IVP NAUSEA/VOMITING; Start 06/23/19 at 18:00 Warfarin Sodium (Coumadin Per Physician) 1 each PRN DAILY PRN MC SEE COMMENTS; Start 06/23/19 at 18:00 Active Scripts Active Gabapentin 300 Mg Capsule 300 Mg PO TID MDD 1 Humalog (Insulin Lispro) 100 Unit/1 Ml Insuln.pen 15 Units SQ TIDWMEALS MDD 1 30 Days Lantus Solostar (Insulin Glargine,Hum.rec.anlog) 100 Unit/1 Ml Insuln.pen 30 Units SQ HS MDD 1 30 Days Furosemide 80 Mg Tablet 80 Mg PO DAILY MDD 1 Amlodipine Besylate 10 Mg Tablet 10 Mg PO DAILY MDD 1 Ferrous Sulfate 325 Mg Tablet 1 Tab PO QMWF MDD 1 Reported Warfarin Sodium 5 Mg Tablet 1.5 Tab PO QSU Warfarin Sodium 5 Mg Tablet 1 Tab PO QMTUWTHFRSA Gabapentin (Gabapentin) 300 Mg Capsule 2 Cap PO PRN DAILY PRN Allergies Allergies: Coded Allergies: prednisone (Verified Allergy, Intermediate, 03/01/19) PT STATES LEG BECAME SWOLLEN FROM TAKING AND GOT A BLOOD CLOT ROS General: YES: Chills, Fatigue, Malaise Gastrointestinal: Yes Diarrhea Physical Exam General: Alert, Oriented X3, Cooperative, No acute distress HEENT: Atraumatic, PERRLA, EOMI Lungs: Clear to auscultation, Normal air movement Heart: S1S2, RRR, no thrills, no rubs, no gallops, no murmurs Cardiovascular: S2 Abdomen: Normal bowel sounds, Soft, No tenderness, No hepatosplenomegaly, No masses Male Genitals Exam: normal genitalia, normal prostate Rectal Exam: not examined Extremities: No clubbing, No cyanosis, No edema, Normal pulses, No tenderness/swelling Skin: No rashes, No breakdown, No significant lesion, Other (dry skin) Psych/Mental Status: Mental status NL, Mood NL Vitals Vitals Vital Signs Date Time Temp Pulse Resp B/P (MAP) Pulse Ox O2 Delivery O2 Flow Rate FiO2 06/23/19 16:56 22 06/23/19 16:18 101.6 107 134/72 (92) 99 Room Air 101.6 Labs Labs Laboratory Tests Test 06/23/19 17:00 White Blood Count 9.2 x10^3/uL (4.0-11.0) Red Blood Count 4.03 x10^6/uL (4.30-5.70) Hemoglobin 11.5 g/dL (13.0-17.5) Hematocrit 34.7 % (39.0-53.0) Mean Corpuscular Volume 86 fL (79-100) Mean Corpuscular Hemoglobin 29 pg (25-35) Mean Corpuscular Hemoglobin Concent 33 g/dL (31-37) Red Cell Distribution Width 14.4 % (11.5-14.5) Platelet Count 110 x10^3/uL (140-400) Neutrophils (%) (Auto) 89 % (31-73) Lymphocytes (%) (Auto) 5 % (24-48) Monocytes (%) (Auto) 6 % (0-9) Eosinophils (%) (Auto) 0 % (0-3) Basophils (%) (Auto) 0 % (0-3) Neutrophils # (Auto) 8.2 x10^3/uL (1.8-7.7) Lymphocytes # (Auto) 0.5 x10^3/uL (1.0-4.8) Monocytes # (Auto) 0.5 x10^3/uL (0.0-1.1) Eosinophils # (Auto) 0.0 x10^3/uL (0.0-0.7) Basophils # (Auto) 0.0 x10^3/uL (0.0-0.2) Sodium Level 138 mmol/L (136-145) Potassium Level 4.1 mmol/L (3.5-5.1) Chloride Level 100 mmol/L (98-107) Carbon Dioxide Level 29 mmol/L (21-32) Anion Gap 9 (6-14) Blood Urea Nitrogen 17 mg/dL (8-26) Creatinine 2.1 mg/dL (0.7-1.3) Estimated GFR (Cockcroft-Gault) 38.7 BUN/Creatinine Ratio 8 (6-20) Glucose Level 170 mg/dL (70-99) Lactic Acid Level 1.6 mmol/L (0.4-2.0) Calcium Level 8.2 mg/dL (8.5-10.1) Magnesium Level 1.5 mg/dL (1.8-2.4) Total Bilirubin 0.5 mg/dL (0.2-1.0) Aspartate Amino Transf (AST/SGOT) 10 U/L (15-37) Alanine Aminotransferase (ALT/SGPT) 10 U/L (16-63) Alkaline Phosphatase 65 U/L (46-116) Creatine Kinase 122 U/L (39-308) Creatine Kinase MB (Mass) 0.6 ng/mL (0.0-3.6) Creatine Kinase MB Relative Index 0.5 % (0-4) Troponin I Quantitative < 0.017 ng/mL (0.000-0.055) UX-Ojc-W-Type Natriuretic Peptide 1262 pg/mL (0-124) Total Protein 7.0 g/dL (6.4-8.2) Albumin 3.3 g/dL (3.4-5.0) Albumin/Globulin Ratio 0.9 (1.0-1.7) Procalcitonin 1.49 ng/mL (0.00-0.10) Laboratory Tests Test 06/23/19 17:00 White Blood Count 9.2 x10^3/uL (4.0-11.0) Red Blood Count 4.03 x10^6/uL (4.30-5.70) Hemoglobin 11.5 g/dL (13.0-17.5) Hematocrit 34.7 % (39.0-53.0) Mean Corpuscular Volume 86 fL (79-100) Mean Corpuscular Hemoglobin 29 pg (25-35) Mean Corpuscular Hemoglobin Concent 33 g/dL (31-37) Red Cell Distribution Width 14.4 % (11.5-14.5) Platelet Count 110 x10^3/uL (140-400) Neutrophils (%) (Auto) 89 % (31-73) Lymphocytes (%) (Auto) 5 % (24-48) Monocytes (%) (Auto) 6 % (0-9) Eosinophils (%) (Auto) 0 % (0-3) Basophils (%) (Auto) 0 % (0-3) Neutrophils # (Auto) 8.2 x10^3/uL (1.8-7.7) Lymphocytes # (Auto) 0.5 x10^3/uL (1.0-4.8) Monocytes # (Auto) 0.5 x10^3/uL (0.0-1.1) Eosinophils # (Auto) 0.0 x10^3/uL (0.0-0.7) Basophils # (Auto) 0.0 x10^3/uL (0.0-0.2) Sodium Level 138 mmol/L (136-145) Potassium Level 4.1 mmol/L (3.5-5.1) Chloride Level 100 mmol/L (98-107) Carbon Dioxide Level 29 mmol/L (21-32) Anion Gap 9 (6-14) Blood Urea Nitrogen 17 mg/dL (8-26) Creatinine 2.1 mg/dL (0.7-1.3) Estimated GFR (Cockcroft-Gault) 38.7 BUN/Creatinine Ratio 8 (6-20) Glucose Level 170 mg/dL (70-99) Lactic Acid Level 1.6 mmol/L (0.4-2.0) Calcium Level 8.2 mg/dL (8.5-10.1) Magnesium Level 1.5 mg/dL (1.8-2.4) Total Bilirubin 0.5 mg/dL (0.2-1.0) Aspartate Amino Transf (AST/SGOT) 10 U/L (15-37) Alanine Aminotransferase (ALT/SGPT) 10 U/L (16-63) Alkaline Phosphatase 65 U/L (46-116) Creatine Kinase 122 U/L (39-308) Creatine Kinase MB (Mass) 0.6 ng/mL (0.0-3.6) Creatine Kinase MB Relative Index 0.5 % (0-4) Troponin I Quantitative < 0.017 ng/mL (0.000-0.055) QN-Jfn-G-Type Natriuretic Peptide 1262 pg/mL (0-124) Total Protein 7.0 g/dL (6.4-8.2) Albumin 3.3 g/dL (3.4-5.0) Albumin/Globulin Ratio 0.9 (1.0-1.7) Procalcitonin 1.49 ng/mL (0.00-0.10) VTE Prophylaxis Ordered VTE Prophylaxis Devices: Yes VTE Pharmacological Prophylaxi: Yes Assessment/Plan Assessment/Plan 1. Fevers unknown source yet 2 ESRD on HD MWF 3 Anuric 4. AOCD 5, GEn weakness 6, Elevated proclacitonin, no source yet 7. leg pains PLAN: MEd surg floor, 2 MN Renal diet, HD per renal No need for pT.oT - he drives and ambulates I reconciled home meds iNR check, cont warf Await BC MOnitor fever pattern ID consult if persists full code seen at ER Trial of gabapendtin for that shooting leg pains he claims ABDIAS GREWAL MD Jun 23, 2019 18:05
[2019-06-23] MEDS ORDERED: ONDANSETRON PF 4 MG/2 ML VIAL. IV PRN (18:30)
[2019-06-23] MEDS ORDERED: fentaNYL PF VIAL 100 MCG/2 ML VIAL IV PRN (18:30)
[2019-06-23 20:45] VITALS: BP 120/82
--- NOTE | 2019-06-23 20:45 | NUR ---
The patient, UMER VANCE, 64 y/o, M admitted by ABDIAS GREWAL MD, was given written information regarding hospital policies, unit procedures and contact persons. Valuables were checked and left with the patient.
[2019-06-23] MEDS ORDERED: GABAPENTIN 300 MG CAPSULE. PO SCH (21:00)
[2019-06-23 21:18] LABS: PROTHROMBIN TIME PATIENT 20.3 SEC (11.7-14.0)
[2019-06-23] MEDS: GABAPENTIN 100 MG CAPSULE. PO SCH (21:40)
[2019-06-23] MEDS: HYDROcodone/APAP 10/325 1 TAB TABLET PO PRN (22:20)
[2019-06-23] MEDS: INSULIN GLARGINE SYRINGE. SQ SCH (22:26)
[2019-06-23] MEDS: WARFARIN 5 MG TABLET. PO SCH (22:37)
[2019-06-23 23:00] VITALS: BP 105/60
[2019-06-24 03:00] VITALS: BP 109/66
[2019-06-24 06:27] LABS: BASO # 0.1 x10^3/uL (0.0-0.2); BASO % 1 % (0-3); EOS % 0 % (0-3); HEMATOCRIT 32.2 % (39.0-53.0); HEMOGLOBIN 10.6 g/dL (13.0-17.5); LYMPH # 0.6 x10^3/uL (1.0-4.8); LYMPH % 6 % (24-48); MEAN CORPUSCULAR HEMOGLOBIN 29 pg (25-35); MEAN CORPUSCULAR HGB CONC 33 g/dL (31-37); MEAN CORPUSCULAR VOLUME 87 fL (79-100); MONO # 0.8 x10^3/uL (0.0-1.1); MONO % 8 % (0-9); NEUT # 9.5 x10^3/uL (1.8-7.7); NEUT % 86 % (31-73); PLATELET COUNT 102 x10^3/uL (140-400); RED CELL DISTRIBUTION WIDTH 14.2 % (11.5-14.5); WHITE BLOOD COUNT 11.1 x10^3/uL (4.0-11.0)
[2019-06-24 07:30] VITALS: BP 101/64
[2019-06-24] MEDS: GABAPENTIN 100 MG CAPSULE. PO SCH ×2 (08:17→21:25)
[2019-06-24] MEDS: HYDROcodone/APAP 10/325 1 TAB TABLET PO PRN ×2 (08:18→16:16)
[2019-06-24] MEDS: INSULIN LISPRO 300 UNITS/3 ML VIAL. SQ SCH ×6 (08:25→17:28)
[2019-06-24] MEDS: amLODIPine BESYLATE 10 MG TABLET PO SCH (09:00)
[2019-06-24] MEDS: FUROSEMIDE 80 MG TABLET. PO SCH (09:00)
--- NOTE | 2019-06-24 10:15 | EKG ---
[facility] [address] [place] [address] Test Date: 2019-06-23 Test Time: 16:53:45 Pat Name: UMER VANCE Department: Room: 8 1 Gender: M Rn Community Health: : 1955 Requested By: ANEL SRINIVASAN Order Number: [id number] Reading MD: Raphael Maxwell MD Measurements Intervals [place] Rate: 109 P: 45 MS: 124 QRS: -4 QRSD: 88 T: 70 QT: 342 QTc: 468 Interpretive Statements SINUS TACHYCARDIA NON-SPECIFIC ST/T CHANGES Electronically Signed On 07-04-2019 10:13:41 CDT by Raphael Maxwell MD
--- NOTE | 2019-06-24 11:10 | PDOC ---
PROGRESS NOTES Chief Complaint Chief Complaint 1. Fevers unknown source yet 2 ESRD on HD MWF 3 Anuric 4. AOCD 5, GEn weakness 6, Elevated proclacitonin, no source yet 7. leg michael History of Present Illness History of Present Illness febrile overnight Procalcitonin jumped to 9 from 1 Legs hurt, i started gabapentin He drove himself here bec of feeling unwell He is anuric He has a RT AV graft and no external catheters or skin rash HE has chronic diarrhea bec of hx colon resection and anastomosis PLAN; Get ID expertise re fevers and sepsis but no source HD per renal Dw him Send for stool....? Vitals Vitals Vital Signs Date Time Temp Pulse Resp B/P (MAP) Pulse Ox O2 Delivery O2 Flow Rate FiO2 06/24/19 08:18 Room Air 06/24/19 07:30 98.1 87 16 101/64 (76) 97 98.1 Physical Exam General: Alert, Oriented X3, Cooperative, No acute distress Lungs: Clear Abdomen: Normal bowel sounds, Soft, No tenderness, No hepatosplenomegaly, No masses Extremities: No clubbing, No cyanosis, No edema, Normal pulses, No tenderness/swelling Skin: No rashes, No breakdown, No significant lesion, Other (dry skin) Labs LABS Laboratory Tests Test 06/23/19 17:00 06/23/19 21:00 06/23/19 22:00 06/24/19 05:50 White Blood Count 9.2 x10^3/uL (4.0-11.0) 11.1 x10^3/uL (4.0-11.0) Red Blood Count 4.03 x10^6/uL (4.30-5.70) 3.70 x10^6/uL (4.30-5.70) Hemoglobin 11.5 g/dL (13.0-17.5) 10.6 g/dL (13.0-17.5) Hematocrit 34.7 % (39.0-53.0) 32.2 % (39.0-53.0) Mean Corpuscular Volume 86 fL (79-100) 87 fL (79-100) Mean Corpuscular Hemoglobin 29 pg (25-35) 29 pg (25-35) Mean Corpuscular Hemoglobin Concent 33 g/dL (31-37) 33 g/dL (31-37) Red Cell Distribution Width 14.4 % (11.5-14.5) 14.2 % (11.5-14.5) Platelet Count 110 x10^3/uL (140-400) 102 x10^3/uL (140-400) Neutrophils (%) (Auto) 89 % (31-73) 86 % (31-73) Lymphocytes (%) (Auto) 5 % (24-48) 6 % (24-48) Monocytes (%) (Auto) 6 % (0-9) 8 % (0-9) Eosinophils (%) (Auto) 0 % (0-3) 0 % (0-3) Basophils (%) (Auto) 0 % (0-3) 1 % (0-3) Neutrophils # (Auto) 8.2 x10^3/uL (1.8-7.7) 9.5 x10^3/uL (1.8-7.7) Lymphocytes # (Auto) 0.5 x10^3/uL (1.0-4.8) 0.6 x10^3/uL (1.0-4.8) Monocytes # (Auto) 0.5 x10^3/uL (0.0-1.1) 0.8 x10^3/uL (0.0-1.1) Eosinophils # (Auto) 0.0 x10^3/uL (0.0-0.7) 0.0 x10^3/uL (0.0-0.7) Basophils # (Auto) 0.0 x10^3/uL (0.0-0.2) 0.1 x10^3/uL (0.0-0.2) Prothrombin Time 20.3 SEC (11.7-14.0) Prothromb Time International Ratio 1.8 (0.8-1.1) Sodium Level 138 mmol/L (136-145) Potassium Level 4.1 mmol/L (3.5-5.1) Chloride Level 100 mmol/L (98-107) Carbon Dioxide Level 29 mmol/L (21-32) Anion Gap 9 (6-14) Blood Urea Nitrogen 17 mg/dL (8-26) Creatinine 2.1 mg/dL (0.7-1.3) Estimated GFR (Cockcroft-Gault) 38.7 BUN/Creatinine Ratio 8 (6-20) Glucose Level 170 mg/dL (70-99) Lactic Acid Level 1.6 mmol/L (0.4-2.0) 2.1 mmol/L (0.4-2.0) Calcium Level 8.2 mg/dL (8.5-10.1) Magnesium Level 1.5 mg/dL (1.8-2.4) Total Bilirubin 0.5 mg/dL (0.2-1.0) Aspartate Amino Transf (AST/SGOT) 10 U/L (15-37) Alanine Aminotransferase (ALT/SGPT) 10 U/L (16-63) Alkaline Phosphatase 65 U/L (46-116) Creatine Kinase 122 U/L (39-308) Creatine Kinase MB (Mass) 0.6 ng/mL (0.0-3.6) Creatine Kinase MB Relative Index 0.5 % (0-4) Troponin I Quantitative < 0.017 ng/mL (0.000-0.055) BD-Bcn-X-Type Natriuretic Peptide 1262 pg/mL (0-124) Total Protein 7.0 g/dL (6.4-8.2) Albumin 3.3 g/dL (3.4-5.0) Albumin/Globulin Ratio 0.9 (1.0-1.7) Procalcitonin 1.49 ng/mL (0.00-0.10) 9.73 ng/mL (0.00-0.10) Glucose (Fingerstick) 270 mg/dL (70-99) Test 06/24/19 08:02 Glucose (Fingerstick) 279 mg/dL (70-99) Review of Systems Review of Systems weak, fevers, chronic loose stools, no cp, no nasty cough, Assessment and Plan Assessmemt and Plan Problems Medical Problems: (1) Fever Status: Acute Comment Review of Relevant I have reviewed the following items keron (where applicable) has been applied. Labs Laboratory Tests Test 06/23/19 17:00 06/23/19 21:00 06/23/19 22:00 06/24/19 05:50 White Blood Count 9.2 x10^3/uL (4.0-11.0) 11.1 x10^3/uL (4.0-11.0) Red Blood Count 4.03 x10^6/uL (4.30-5.70) 3.70 x10^6/uL (4.30-5.70) Hemoglobin 11.5 g/dL (13.0-17.5) 10.6 g/dL (13.0-17.5) Hematocrit 34.7 % (39.0-53.0) 32.2 % (39.0-53.0) Mean Corpuscular Volume 86 fL (79-100) 87 fL (79-100) Mean Corpuscular Hemoglobin 29 pg (25-35) 29 pg (25-35) Mean Corpuscular Hemoglobin Concent 33 g/dL (31-37) 33 g/dL (31-37) Red Cell Distribution Width 14.4 % (11.5-14.5) 14.2 % (11.5-14.5) Platelet Count 110 x10^3/uL (140-400) 102 x10^3/uL (140-400) Neutrophils (%) (Auto) 89 % (31-73) 86 % (31-73) Lymphocytes (%) (Auto) 5 % (24-48) 6 % (24-48) Monocytes (%) (Auto) 6 % (0-9) 8 % (0-9) Eosinophils (%) (Auto) 0 % (0-3) 0 % (0-3) Basophils (%) (Auto) 0 % (0-3) 1 % (0-3) Neutrophils # (Auto) 8.2 x10^3/uL (1.8-7.7) 9.5 x10^3/uL (1.8-7.7) Lymphocytes # (Auto) 0.5 x10^3/uL (1.0-4.8) 0.6 x10^3/uL (1.0-4.8) Monocytes # (Auto) 0.5 x10^3/uL (0.0-1.1) 0.8 x10^3/uL (0.0-1.1) Eosinophils # (Auto) 0.0 x10^3/uL (0.0-0.7) 0.0 x10^3/uL (0.0-0.7) Basophils # (Auto) 0.0 x10^3/uL (0.0-0.2) 0.1 x10^3/uL (0.0-0.2) Prothrombin Time 20.3 SEC (11.7-14.0) Prothromb Time International Ratio 1.8 (0.8-1.1) Sodium Level 138 mmol/L (136-145) Potassium Level 4.1 mmol/L (3.5-5.1) Chloride Level 100 mmol/L (98-107) Carbon Dioxide Level 29 mmol/L (21-32) Anion Gap 9 (6-14) Blood Urea Nitrogen 17 mg/dL (8-26) Creatinine 2.1 mg/dL (0.7-1.3) Estimated GFR (Cockcroft-Gault) 38.7 BUN/Creatinine Ratio 8 (6-20) Glucose Level 170 mg/dL (70-99) Lactic Acid Level 1.6 mmol/L (0.4-2.0) 2.1 mmol/L (0.4-2.0) Calcium Level 8.2 mg/dL (8.5-10.1) Magnesium Level 1.5 mg/dL (1.8-2.4) Total Bilirubin 0.5 mg/dL (0.2-1.0) Aspartate Amino Transf (AST/SGOT) 10 U/L (15-37) Alanine Aminotransferase (ALT/SGPT) 10 U/L (16-63) Alkaline Phosphatase 65 U/L (46-116) Creatine Kinase 122 U/L (39-308) Creatine Kinase MB (Mass) 0.6 ng/mL (0.0-3.6) Creatine Kinase MB Relative Index 0.5 % (0-4) Troponin I Quantitative < 0.017 ng/mL (0.000-0.055) FK-Xct-N-Type Natriuretic Peptide 1262 pg/mL (0-124) Total Protein 7.0 g/dL (6.4-8.2) Albumin 3.3 g/dL (3.4-5.0) Albumin/Globulin Ratio 0.9 (1.0-1.7) Procalcitonin 1.49 ng/mL (0.00-0.10) 9.73 ng/mL (0.00-0.10) Glucose (Fingerstick) 270 mg/dL (70-99) Test 06/24/19 08:02 Glucose (Fingerstick) 279 mg/dL (70-99) Laboratory Tests Test 06/23/19 17:00 06/23/19 21:00 06/23/19 22:00 06/24/19 05:50 White Blood Count 9.2 x10^3/uL (4.0-11.0) 11.1 x10^3/uL (4.0-11.0) Red Blood Count 4.03 x10^6/uL (4.30-5.70) 3.70 x10^6/uL (4.30-5.70) Hemoglobin 11.5 g/dL (13.0-17.5) 10.6 g/dL (13.0-17.5) Hematocrit 34.7 % (39.0-53.0) 32.2 % (39.0-53.0) Mean Corpuscular Volume 86 fL (79-100) 87 fL (79-100) Mean Corpuscular Hemoglobin 29 pg (25-35) 29 pg (25-35) Mean Corpuscular Hemoglobin Concent 33 g/dL (31-37) 33 g/dL (31-37) Red Cell Distribution Width 14.4 % (11.5-14.5) 14.2 % (11.5-14.5) Platelet Count 110 x10^3/uL (140-400) 102 x10^3/uL (140-400) Neutrophils (%) (Auto) 89 % (31-73) 86 % (31-73) Lymphocytes (%) (Auto) 5 % (24-48) 6 % (24-48) Monocytes (%) (Auto) 6 % (0-9) 8 % (0-9) Eosinophils (%) (Auto) 0 % (0-3) 0 % (0-3) Basophils (%) (Auto) 0 % (0-3) 1 % (0-3) Neutrophils # (Auto) 8.2 x10^3/uL (1.8-7.7) 9.5 x10^3/uL (1.8-7.7) Lymphocytes # (Auto) 0.5 x10^3/uL (1.0-4.8) 0.6 x10^3/uL (1.0-4.8) Monocytes # (Auto) 0.5 x10^3/uL (0.0-1.1) 0.8 x10^3/uL (0.0-1.1) Eosinophils # (Auto) 0.0 x10^3/uL (0.0-0.7) 0.0 x10^3/uL (0.0-0.7) Basophils # (Auto) 0.0 x10^3/uL (0.0-0.2) 0.1 x10^3/uL (0.0-0.2) Prothrombin Time 20.3 SEC (11.7-14.0) Prothromb Time International Ratio 1.8 (0.8-1.1) Sodium Level 138 mmol/L (136-145) Potassium Level 4.1 mmol/L (3.5-5.1) Chloride Level 100 mmol/L (98-107) Carbon Dioxide Level 29 mmol/L (21-32) Anion Gap 9 (6-14) Blood Urea Nitrogen 17 mg/dL (8-26) Creatinine 2.1 mg/dL (0.7-1.3) Estimated GFR (Cockcroft-Gault) 38.7 BUN/Creatinine Ratio 8 (6-20) Glucose Level 170 mg/dL (70-99) Lactic Acid Level 1.6 mmol/L (0.4-2.0) 2.1 mmol/L (0.4-2.0) Calcium Level 8.2 mg/dL (8.5-10.1) Magnesium Level 1.5 mg/dL (1.8-2.4) Total Bilirubin 0.5 mg/dL (0.2-1.0) Aspartate Amino Transf (AST/SGOT) 10 U/L (15-37) Alanine Aminotransferase (ALT/SGPT) 10 U/L (16-63) Alkaline Phosphatase 65 U/L (46-116) Creatine Kinase 122 U/L (39-308) Creatine Kinase MB (Mass) 0.6 ng/mL (0.0-3.6) Creatine Kinase MB Relative Index 0.5 % (0-4) Troponin I Quantitative < 0.017 ng/mL (0.000-0.055) SK-Aga-N-Type Natriuretic Peptide 1262 pg/mL (0-124) Total Protein 7.0 g/dL (6.4-8.2) Albumin 3.3 g/dL (3.4-5.0) Albumin/Globulin Ratio 0.9 (1.0-1.7) Procalcitonin 1.49 ng/mL (0.00-0.10) 9.73 ng/mL (0.00-0.10) Glucose (Fingerstick) 270 mg/dL (70-99) Test 06/24/19 08:02 Glucose (Fingerstick) 279 mg/dL (70-99) Medications Current Medications Ibuprofen (Motrin) 600 mg 1X ONCE PO Last administered on 06/23/19at 16:56; Start 06/23/19 at 16:30; Stop 06/23/19 at 16:31; Status DC Acetaminophen/ Hydrocodone Bitart (Lortab 5/325) 2 tab 1X ONCE PO Last administered on 06/23/19at 16:56; Start 06/23/19 at 16:30; Stop 06/23/19 at 16:31; Status DC Piperacillin Sod/ Tazobactam Sod 4.5 gm/Sodium Chloride 100 ml @ 200 mls/hr 1X ONCE IV Last administered on 06/23/19at 16:57; Start 06/23/19 at 16:30; Stop 06/23/19 at 16:59; Status DC Vancomycin HCl (Vanco Per Pharmacy) 1 each 1X ONCE MC ; Start 06/23/19 at 16:30; Stop 06/23/19 at 16:31; Status DC Morphine Sulfate (Morphine Sulfate) 4 mg PRN Q15MIN PRN IV/SQ PAIN GREATER THAN 3/10; Start 06/23/19 at 16:30; Stop 06/24/19 at 16:29 Vancomycin HCl 1.75 gm/Sodium Chloride 500 ml @ 250 mls/hr 1X ONCE IV Last administered on 06/23/19at 18:21; Start 06/23/19 at 16:30; Stop 06/23/19 at 18:29; Status DC Amlodipine Besylate (Norvasc) 10 mg DAILY PO ; Start 06/24/19 at 09:00 Ferrous Sulfate (Feosol) 325 mg MoWeFr@0900 PO ; Start 06/26/19 at 09:00 Furosemide (Lasix) 80 mg DAILY PO ; Start 06/24/19 at 09:00 Gabapentin (Neurontin) 300 mg TID PO ; Start 06/23/19 at 21:00; Stop 06/23/19 at 18:08; Status DC Insulin Human Lispro (HumaLOG) 15 units TIDWMEALS SQ Last administered on 06/24/19at 08:25; Start 06/24/19 at 08:00 Warfarin Sodium (Coumadin) 7.5 mg Marinelli@1600 PO ; Start 06/25/19 at 16:00 Warfarin Sodium (Coumadin) 5 mg MoTuWeThFrSa@1600 PO Last administered on 06/23/19at 22:37; Start 06/23/19 at 22:30 Insulin Glargine (Lantus Syringe) 30 unit QHS SQ Last administered on 06/23/19at 22:26; Start 06/23/19 at 21:00 Insulin Human Lispro (HumaLOG) 0-9 UNITS TIDWMEALS SQ Last administered on 06/24/19at 08:25; Start 06/24/19 at 08:00 Dextrose (Dextrose 50%-Water Syringe) 12.5 gm PRN Q15MIN PRN IV SEE COMMENTS; Start 06/23/19 at 18:00 Acetaminophen/ Codeine Phosphate (Tylenol #3) 1 tab PRN Q6HRS PRN PO MILD PAIN 1-3; Start 06/23/19 at 18:00 Ondansetron HCl (Zofran) 4 mg PRN Q6HRS PRN IVP NAUSEA/VOMITING; Start 06/23/19 at 18:00 Warfarin Sodium (Coumadin Per Physician) 1 each PRN DAILY PRN MC SEE COMMENTS Last administered on 06/24/19at 10:31; Start 06/23/19 at 18:00 Acetaminophen/ Hydrocodone Bitart (Lortab 10/325) 1 tab PRN Q6HRS PRN PO MODERATE TO SEVERE PAIN Last administered on 06/24/19at 08:18; Start 06/23/19 at 18:15 Gabapentin (Neurontin) 100 mg BID PO Last administered on 06/24/19at 08:17; Start 06/23/19 at 21:00 Ondansetron HCl (Zofran) 4 mg PRN Q8HRS PRN IV NAUSEA/VOMITING; Start 06/23/19 at 18:30; Stop 06/24/19 at 18:29; Status Cancel Fentanyl Citrate (Fentanyl 2ml Vial) 50 mcg PRN Q1HR PRN IV PAIN; Start 06/23/19 at 18:30; Stop 06/24/19 at 18:29 Active Scripts Active Gabapentin 300 Mg Capsule 300 Mg PO TID MDD 1 Humalog (Insulin Lispro) 100 Unit/1 Ml Insuln.pen 15 Units SQ TIDWMEALS MDD 1 30 Days Lantus Solostar (Insulin Glargine,Hum.rec.anlog) 100 Unit/1 Ml Insuln.pen 30 Units SQ HS MDD 1 30 Days Amlodipine Besylate 10 Mg Tablet 10 Mg PO DAILY MDD 1 Reported Warfarin Sodium 5 Mg Tablet 1.5 Tab PO QSU Warfarin Sodium 5 Mg Tablet 1 Tab PO [id number] Gabapentin (Gabapentin) 300 Mg Capsule 2 Cap PO PRN DAILY PRN Vitals/I & O Vital Sign - Last 24 Hours 06/23/19 06/23/19 06/23/19 06/23/19 16:18 16:45 16:56 17:15 Temp 101.6 101.6 Pulse 107 110 104 Resp 20 20 22 23 B/P (MAP) 134/72 (92) Pulse Ox 99 99 99 O2 Delivery Room Air 06/23/19 06/23/19 06/23/19 06/23/19 17:45 18:15 18:21 18:46 Pulse 102 100 93 Resp 20 20 20 Pulse Ox 97 06/23/19 06/23/19 06/23/19 06/23/19 19:16 20:30 20:45 22:20 Temp 100.2 100.2 Pulse 93 96 Resp 20 18 B/P (MAP) 120/82 (95) Pulse Ox 98 97 98 O2 Delivery Room Air Room Air 06/23/19 06/23/19 06/24/19 06/24/19 23:00 23:20 03:00 07:30 Temp 98.4 98.1 98.1 98.4 98.1 98.1 Pulse 94 74 87 Resp 18 18 16 B/P (MAP) 105/60 (75) 109/66 (80) 101/64 (76) Pulse Ox 98 97 97 97 O2 Delivery Room Air Room Air Room Air Room Air 06/24/19 06/24/19 07:50 08:18 O2 Delivery Room Air Room Air Intake and Output 06/23/19 06/23/19 06/24/19 15:00 23:00 07:00 Intake Total 600 ml 240 ml Balance 600 ml 240 ml ABDIAS GREWAL MD Jun 24, 2019 11:10
[2019-06-24 11:30] VITALS: BP 114/60
[2019-06-24 13:38] LABS: INFLUENZA A PATIENT NEGATIVE (NEGATIVE); INFLUENZA B PATIENT NEGATIVE (NEGATIVE)
[2019-06-24 15:00] VITALS: BP 140/76
[2019-06-24] MEDS: WARFARIN 5 MG TABLET. PO SCH (16:15)
[2019-06-24] MEDS ORDERED: PIP/TAZO PER PHARMACY MC PRN (17:00)
--- NOTE | 2019-06-24 17:07 | PDOC ---
Infectious Disease Note Vital Sign Vital Signs Vital Signs Date Time Temp Pulse Resp B/P (MAP) Pulse Ox O2 Delivery O2 Flow Rate FiO2 06/24/19 16:16 Room Air 06/24/19 15:00 97.9 105 18 140/76 (97) 96 97.9 Labs Lab Laboratory Tests Test 06/23/19 17:00 06/23/19 21:00 06/23/19 22:00 06/24/19 05:50 White Blood Count 9.2 x10^3/uL (4.0-11.0) 11.1 x10^3/uL (4.0-11.0) Red Blood Count 4.03 x10^6/uL (4.30-5.70) 3.70 x10^6/uL (4.30-5.70) Hemoglobin 11.5 g/dL (13.0-17.5) 10.6 g/dL (13.0-17.5) Hematocrit 34.7 % (39.0-53.0) 32.2 % (39.0-53.0) Mean Corpuscular Volume 86 fL (79-100) 87 fL (79-100) Mean Corpuscular Hemoglobin 29 pg (25-35) 29 pg (25-35) Mean Corpuscular Hemoglobin Concent 33 g/dL (31-37) 33 g/dL (31-37) Red Cell Distribution Width 14.4 % (11.5-14.5) 14.2 % (11.5-14.5) Platelet Count 110 x10^3/uL (140-400) 102 x10^3/uL (140-400) Neutrophils (%) (Auto) 89 % (31-73) 86 % (31-73) Lymphocytes (%) (Auto) 5 % (24-48) 6 % (24-48) Monocytes (%) (Auto) 6 % (0-9) 8 % (0-9) Eosinophils (%) (Auto) 0 % (0-3) 0 % (0-3) Basophils (%) (Auto) 0 % (0-3) 1 % (0-3) Neutrophils # (Auto) 8.2 x10^3/uL (1.8-7.7) 9.5 x10^3/uL (1.8-7.7) Lymphocytes # (Auto) 0.5 x10^3/uL (1.0-4.8) 0.6 x10^3/uL (1.0-4.8) Monocytes # (Auto) 0.5 x10^3/uL (0.0-1.1) 0.8 x10^3/uL (0.0-1.1) Eosinophils # (Auto) 0.0 x10^3/uL (0.0-0.7) 0.0 x10^3/uL (0.0-0.7) Basophils # (Auto) 0.0 x10^3/uL (0.0-0.2) 0.1 x10^3/uL (0.0-0.2) Prothrombin Time 20.3 SEC (11.7-14.0) Prothromb Time International Ratio 1.8 (0.8-1.1) Sodium Level 138 mmol/L (136-145) Potassium Level 4.1 mmol/L (3.5-5.1) Chloride Level 100 mmol/L (98-107) Carbon Dioxide Level 29 mmol/L (21-32) Anion Gap 9 (6-14) Blood Urea Nitrogen 17 mg/dL (8-26) Creatinine 2.1 mg/dL (0.7-1.3) Estimated GFR (Cockcroft-Gault) 38.7 BUN/Creatinine Ratio 8 (6-20) Glucose Level 170 mg/dL (70-99) Lactic Acid Level 1.6 mmol/L (0.4-2.0) 2.1 mmol/L (0.4-2.0) Calcium Level 8.2 mg/dL (8.5-10.1) Magnesium Level 1.5 mg/dL (1.8-2.4) Total Bilirubin 0.5 mg/dL (0.2-1.0) Aspartate Amino Transf (AST/SGOT) 10 U/L (15-37) Alanine Aminotransferase (ALT/SGPT) 10 U/L (16-63) Alkaline Phosphatase 65 U/L (46-116) Creatine Kinase 122 U/L (39-308) Creatine Kinase MB (Mass) 0.6 ng/mL (0.0-3.6) Creatine Kinase MB Relative Index 0.5 % (0-4) Troponin I Quantitative < 0.017 ng/mL (0.000-0.055) CX-Ynd-D-Type Natriuretic Peptide 1262 pg/mL (0-124) Total Protein 7.0 g/dL (6.4-8.2) Albumin 3.3 g/dL (3.4-5.0) Albumin/Globulin Ratio 0.9 (1.0-1.7) Procalcitonin 1.49 ng/mL (0.00-0.10) 9.73 ng/mL (0.00-0.10) Glucose (Fingerstick) 270 mg/dL (70-99) Test 06/24/19 08:02 06/24/19 11:57 06/24/19 12:00 06/24/19 13:13 Glucose (Fingerstick) 279 mg/dL (70-99) 66 mg/dL (70-99) 150 mg/dL (70-99) Influenza Type A Antigen Negative (NEGATIVE) Influenza Type B Antigen Negative (NEGATIVE) Objective Assessment Fever Cough ESRD on HD via AV fistula Ulcerative colitis DM h/o DVT on warfarin therapy Plan Plan of Care Continue empiric Zosyn Last dose vancomycin 06/23 f/u cultures Supportive care Thank you [id number] Patient seen and examined. Chart reviewed in detail. Case discussed with CHAIR INSTALLER. Agree with above plan. BRIAN ARROYO APRN Jun 24, 2019 17:07 MAXIMILIAN RUDD MD Jun 24, 2019 19:36
[2019-06-24] MEDS: PIPERACILLIN/TAZOBACTAM 2.25 GM in IV NORMAL SALINE 50ML 50 ML IV SCH ×2 (17:19→21:25)
[2019-06-24 19:00] VITALS: BP 125/59
[2019-06-24] MEDS: INSULIN GLARGINE SYRINGE. SQ SCH (21:50)
--- NOTE | 2019-06-24 22:00 | NUR ---
Patient's blood glucose-81, wants lantus 30 units, patient noted to have had low blood sugars through the day, this narrative writer encourages patient to drink juice; eat crackers or paty crackers, patient refuses, soda non-dietary, given, to monitor.
--- NOTE | 2019-06-24 22:14 | CONS ---
DATE OF CONSULTATION: REQUESTING PHYSICIAN: Hospitalist. REASON FOR CONSULTATION: Renal failure. HISTORY OF PRESENT ILLNESS: A 64-year-old gentleman, who has a history of diabetes mellitus, hypertension, end-stage renal disease. The patient is hemodialysis dependent, on Wednesday, Wednesday, Wednesday. He completed all that 45 minutes of his dialysis treatment. Due to "pain in his feet", he discontinued dialysis early. He presented to the Emergency Department and was found to be febrile and was admitted for further evaluation and management of the same. Laboratories reveal a creatinine of 2.1, potassium 4.1, CO2 29, white count currently 11.1. Influenza A and B antigens were both negative. Chest radiograph reveals no acute abnormalities. PAST MEDICAL HISTORY: Diabetes mellitus, hypertension, end-stage renal disease, hemodialysis dependent, Wednesday, Wednesday and Wednesday; anemia of chronic kidney disease, secondary hyperparathyroidism, renal disease, degenerative arthritis, cholecystectomy, colectomy, vascular access placement. ALLERGIES: PREDNISONE. MEDICATIONS: Reviewed per medication list. FAMILY HISTORY: Noncontributory. SOCIAL HISTORY: The patient resides independently, has used cocaine and crystal meth. Occasional alcohol use. REVIEW OF SYSTEMS: No headache, sinus problem, nasal drainage, epistaxis, change in vision or hearing. No difficulty swallowing. No fever, chills, cough, sputum production, or hemoptysis. No chest pain, shortness of breath, PND, orthopnea, no dyspnea on exertion. No abdominal pain, nausea, vomiting, diarrhea. No seizures or malignancies. PHYSICAL EXAMINATION: GENERAL APPEARANCE: The patient awake, conversant. HEENT: Clear. NECK: No increased JVD. No thyromegaly, masses or adenopathy. LUNGS: Clear. CARDIAC: Without S3 or rub. ABDOMEN: Soft, nontender, no bruits. EXTREMITIES: No edema. NEUROLOGIC: Nonfocal, nonlocalized. PSYCHIATRIC: Fair attention to detail, appropriate affect. LABORATORY DATA: Sodium 138, potassium 4.1, chloride 100, CO2 29, BUN 17, creatinine 2.1, GFR 38.7, mag 1.5, albumin 3.3. White count 11.1, hemoglobin 10.6, hematocrit 32. IMPRESSION: 1. End-stage renal disease secondary to diabetes mellitus and hypertension, hemodialysis-dependent, Wednesday, Wednesday, Wednesday. 2. Anemia of chronic kidney disease, well controlled. 3. Fever -- unclear etiology. RECOMMENDATIONS: 1. Empiric antibiotics which we are doing pending culture results. 2. Ongoing dialysis Wednesday, Wednesday and Wednesday, if he is here, Epogen, for hemoglobin level. SHAWN GILMORE MD DR: DREW/ran JOB#: [id number] / [id number]
[2019-06-24 23:00] VITALS: BP 108/55
--- NOTE | 2019-06-25 00:50 | CONS ---
DATE OF CONSULTATION: 06/24/2019 DICTATED BY: Garth Jaimes APRN REFERRING PHYSICIAN: Karlie Han MD REASON FOR CONSULTATION: Fevers. HISTORY OF PRESENT ILLNESS: This patient is a 64-year-old -[place] male with end-stage renal disease, on hemodialysis via AV fistula on Wednesday, Wednesdays and Fridays. Over the last day or so, he says he has not been feeling well. Yesterday, he came off dialysis early to be evaluated. On arrival to the ER, he had a temperature of 101.6 with a normal white blood cell count. A chest x-ray showed no infiltrate, pleural effusion or pneumothorax. Blood cultures were ordered. He was dosed empirically with vancomycin and Zosyn. Since admission, he has been afebrile. He complains of chronic cough with phlegm production for the past month. He denies chest discomfort, shortness of air, sinus/nasal congestion or sore throat. He feels weak. He complained of pain in both his feet that improved with pain medication. He denies chills, sweats, or body aches. He denies recent antibiotics or hospitalizations. He lives at home with his mother. He does not have any pets. He reports chronic diarrhea after having a colon resection in the past. Denies nausea, vomiting, or cramps. PAST MEDICAL HISTORY: Ulcerative colitis; diabetes mellitus; peripheral neuropathy; hypertension; history of DVT, on warfarin therapy; history of colorectal cancer; end-stage renal disease, on hemodialysis via AV fistula Wednesday, Wednesday, and Wednesday; hepatitis C; osteoarthritis; and history of Proteus mirabilis UTI resistant to nitrofurantoin and tetracycline, otherwise sensitive. PAST SURGICAL HISTORY: Colon resection, AV fistula creation, and cholecystectomy. SOCIAL HISTORY: The patient lives at home with his mother. History of cocaine, crystal meth and marijuana. He is a smoker. FAMILY HISTORY: Diabetes. ALLERGIES: PREDNISONE. MEDICATIONS: One time dose of vancomycin, one time dose of Zosyn, warfarin. Other medications are available and have been reviewed on the NOV. REVIEW OF SYSTEMS: Per HPI, otherwise all other review of systems are negative. PHYSICAL EXAMINATION: VITAL SIGNS: Temperature is 97.9, blood pressure 140/76, heart rate 105, respiratory rate 18, and pulse oximetry 96% on room air. GENERAL: The patient is propped up in bed, alert, no apparent distress. HEENT: Pupils equally round. Oropharynx pink and moist. NECK: Supple. LUNGS: Clear to auscultation. HEART: S1, S2. ABDOMEN: Soft and nontender with bowel sounds present. EXTREMITIES: No gross edema or cyanosis. RUE -- AV fistula unremarkable. SKIN: Warm to touch. No signs of rash. NEUROLOGIC: Alert and answering questions appropriately. LABORATORY DATA: Today's WBC 11.1 from 9.2 on admission, hemoglobin 10.6, and platelets 102,000. Recent creatinine 2.1, BUN 17, sodium 138, potassium 4.1, glucose 170, total bilirubin 0.5, AST 10, ALT 10, albumin 3.3. Procalcitonin 9.73 from 1.49. Lactic acid 1.6. Blood cultures pending. Stool for C. difficile and culture pending. Chest x-ray per HPI. Head CT showed no acute intracranial abnormality. IMPRESSION: 1. Fever. 2. Cough. 3. End-stage renal disease, on hemodialysis via AV fistula. 4. Ulcerative colitis. 5. Diabetes mellitus. 6. History of deep venous thrombosis, on warfarin therapy. PLAN: 1. Continue empiric Zosyn. 2. His last dose of vancomycin was on 06/23. 3. We will follow up on culture results. 4. Supportive care. Thank you, Dr. Han, for asking us to participate in this patient's care. Should you have further questions or concerns, please call. MAXIMILIAN RUDD MD DR: SERGIO/ran JOB#: [id number] / [id number] MTDD
[2019-06-25 03:00] VITALS: BP 119/62
[2019-06-25 04:24] LABS: BASO % 0 % (0-3); EOS # 0.1 x10^3/uL (0.0-0.7); EOS % 1 % (0-3); HEMATOCRIT 30.6 % (39.0-53.0); HEMOGLOBIN 10.2 g/dL (13.0-17.5); LYMPH # 0.8 x10^3/uL (1.0-4.8); LYMPH % 8 % (24-48); MEAN CORPUSCULAR HEMOGLOBIN 29 pg (25-35); MEAN CORPUSCULAR HGB CONC 33 g/dL (31-37); MEAN CORPUSCULAR VOLUME 87 fL (79-100); MONO # 1.1 x10^3/uL (0.0-1.1); MONO % 11 % (0-9); NEUT # 8.4 x10^3/uL (1.8-7.7); NEUT % 80 % (31-73); PLATELET COUNT 100 x10^3/uL (140-400); RED CELL DISTRIBUTION WIDTH 14.4 % (11.5-14.5); WHITE BLOOD COUNT 10.5 x10^3/uL (4.0-11.0)
[2019-06-25 04:31] LABS: PROTHROMBIN TIME PATIENT 22.6 SEC (11.7-14.0)
[2019-06-25 04:40] LABS: CALCIUM 8.5 mg/dL (8.5-10.1); CREATININE 9.1 mg/dL (0.7-1.3); GFR 7.1; POTASSIUM 5.1 mmol/L (3.5-5.1)
[2019-06-25] MEDS: PIPERACILLIN/TAZOBACTAM 2.25 GM in IV NORMAL SALINE 50ML 50 ML IV SCH ×3 (05:49→22:22)
[2019-06-25] MEDS: HYDROcodone/APAP 10/325 1 TAB TABLET PO PRN ×3 (05:52→20:32)
[2019-06-25 07:00] VITALS: BP 106/60
[2019-06-25] MEDS: INSULIN LISPRO 300 UNITS/3 ML VIAL. SQ SCH ×6 (08:00→17:00)
[2019-06-25] MEDS: FUROSEMIDE 80 MG TABLET. PO SCH (09:00)
--- NOTE | 2019-06-25 09:14 | PDOC ---
Infectious Disease Note Subjective Subjective Feeling "fair" this morning Ongoing cough, some phlegm Denies CP/SOA/chills No fever last 24 hours ROS ROS per HPI Vital Sign Vital Signs Vital Signs Date Time Temp Pulse Resp B/P (MAP) Pulse Ox O2 Delivery O2 Flow Rate FiO2 06/25/19 07:00 97.9 80 17 106/60 (75) 95 Room Air 97.9 Physical Exam PHYSICAL EXAM GENERAL: Propped up in bed, alert, no apparent distress. HEENT: Pupils equally round. Oropharynx pink and moist. NECK: Supple. LUNGS: Clear to auscultation. HEART: S1, S2. ABDOMEN: Soft and nontender with bowel sounds present. EXTREMITIES: No gross edema or cyanosis. RUE -- AV fistula unremarkable. SKIN: Warm to touch. No signs of rash. NEUROLOGIC: Alert and answering questions appropriately. Labs Lab Laboratory Tests Test 06/24/19 11:57 06/24/19 12:00 06/24/19 13:13 06/24/19 16:32 Glucose (Fingerstick) 66 mg/dL (70-99) 150 mg/dL (70-99) 361 mg/dL (70-99) Influenza Type A Antigen Negative (NEGATIVE) Influenza Type B Antigen Negative (NEGATIVE) Test 06/24/19 20:51 06/25/19 03:30 06/25/19 07:33 Glucose (Fingerstick) 81 mg/dL (70-99) 252 mg/dL (70-99) White Blood Count 10.5 x10^3/uL (4.0-11.0) Red Blood Count 3.50 x10^6/uL (4.30-5.70) Hemoglobin 10.2 g/dL (13.0-17.5) Hematocrit 30.6 % (39.0-53.0) Mean Corpuscular Volume 87 fL (79-100) Mean Corpuscular Hemoglobin 29 pg (25-35) Mean Corpuscular Hemoglobin Concent 33 g/dL (31-37) Red Cell Distribution Width 14.4 % (11.5-14.5) Platelet Count 100 x10^3/uL (140-400) Neutrophils (%) (Auto) 80 % (31-73) Lymphocytes (%) (Auto) 8 % (24-48) Monocytes (%) (Auto) 11 % (0-9) Eosinophils (%) (Auto) 1 % (0-3) Basophils (%) (Auto) 0 % (0-3) Neutrophils # (Auto) 8.4 x10^3/uL (1.8-7.7) Lymphocytes # (Auto) 0.8 x10^3/uL (1.0-4.8) Monocytes # (Auto) 1.1 x10^3/uL (0.0-1.1) Eosinophils # (Auto) 0.1 x10^3/uL (0.0-0.7) Basophils # (Auto) 0.0 x10^3/uL (0.0-0.2) Prothrombin Time 22.6 SEC (11.7-14.0) Prothromb Time International Ratio 2.0 (0.8-1.1) Sodium Level 138 mmol/L (136-145) Potassium Level 5.1 mmol/L (3.5-5.1) Chloride Level 103 mmol/L (98-107) Carbon Dioxide Level 26 mmol/L (21-32) Anion Gap 9 (6-14) Blood Urea Nitrogen 46 mg/dL (8-26) Creatinine 9.1 mg/dL (0.7-1.3) Estimated GFR (Cockcroft-Gault) 7.1 Glucose Level 339 mg/dL (70-99) Calcium Level 8.5 mg/dL (8.5-10.1) Procalcitonin 16.30 ng/mL (0.00-0.10) Micro Microbiology 06/23/19 Blood Culture - Preliminary, Resulted NO GROWTH AFTER 1 DAY Objective Assessment Fever - better Cough ESRD on HD via AV fistula Ulcerative colitis DM h/o DVT on warfarin therapy Plan Plan of Care Continue empiric Zosyn Last dose vancomycin 06/23, will continue BC neg so far Add sputum C&S Supportive care D/w nursing D/w Dr. Mccabe Patient seen and examined. Chart reviewed in detail. Case discussed with ELECTRICAL FOREMAN. Agree with above plan. BRIAN ARROYO APRN Jun 25, 2019 09:14 MAXIMILIAN MCCABE MD Jun 25, 2019 20:35
[2019-06-25] MEDS: amLODIPine BESYLATE 10 MG TABLET PO SCH (09:17)
[2019-06-25] MEDS: GABAPENTIN 100 MG CAPSULE. PO SCH ×2 (09:17→20:32)
[2019-06-25] MEDS: VANCOMYCIN PER PHARMACY MC PRN (09:39)
[2019-06-25 10:45] VITALS: BP 110/64
--- NOTE | 2019-06-25 10:50 | PDOC ---
PROGRESS NOTES Chief Complaint Chief Complaint 1. Fevers unknown source yet 2 ESRD on HD MWF 3 Anuric 4. AOCD 5, GEn weakness 6, Elevated proclacitonin, no source yet 7. leg michael History of Present Illness History of Present Illness fever pattern improving but Procalcitonin now 16 from 9 from 1 with no obvious source! Legs hurt, i started gabapentin - no concerns re that last 2 days He drove himself here bec of feeling unwell He is anuric - no urine sample He has a RT AV graft and no external catheters or skin rash HE has chronic diarrhea bec of hx colon resection and anastomosis BC prelim no growth PLAN; ID over the weekend okayed vanc zosyn - WOF vanc - HD pt Servin CT today -c heck for sepsis source (procalcitonin way high) HD per renal Dw him Send for stool....? chronic diarrhea (hx colectomy with ansastomosis) Vitals Vitals Vital Signs Date Time Temp Pulse Resp B/P (MAP) Pulse Ox O2 Delivery O2 Flow Rate FiO2 06/25/19 10:45 97.8 82 17 110/64 (79) 96 Room Air 97.8 Physical Exam Physical Exam GENERAL: Propped up in bed, alert, no apparent distress. HEENT: Pupils equally round. Oropharynx pink and moist. NECK: Supple. LUNGS: Clear to auscultation. HEART: S1, S2. ABDOMEN: Soft and nontender with bowel sounds present. EXTREMITIES: No gross edema or cyanosis. RUE -- AV fistula unremarkable. SKIN: Warm to touch. No signs of rash. NEUROLOGIC: Alert and answering questions appropriately. General: Alert, Oriented X3, Cooperative, No acute distress Lungs: Clear Abdomen: Normal bowel sounds, Soft, No tenderness, No hepatosplenomegaly, No masses Extremities: No clubbing, No cyanosis, No edema, Normal pulses, No tenderness/swelling Skin: No rashes, No breakdown, No significant lesion, Other (dry skin) Labs LABS Laboratory Tests Test 06/24/19 11:57 06/24/19 12:00 06/24/19 13:13 06/24/19 16:32 Glucose (Fingerstick) 66 mg/dL (70-99) 150 mg/dL (70-99) 361 mg/dL (70-99) Influenza Type A Antigen Negative (NEGATIVE) Influenza Type B Antigen Negative (NEGATIVE) Test 06/24/19 20:51 06/25/19 03:30 06/25/19 07:33 Glucose (Fingerstick) 81 mg/dL (70-99) 252 mg/dL (70-99) White Blood Count 10.5 x10^3/uL (4.0-11.0) Red Blood Count 3.50 x10^6/uL (4.30-5.70) Hemoglobin 10.2 g/dL (13.0-17.5) Hematocrit 30.6 % (39.0-53.0) Mean Corpuscular Volume 87 fL (79-100) Mean Corpuscular Hemoglobin 29 pg (25-35) Mean Corpuscular Hemoglobin Concent 33 g/dL (31-37) Red Cell Distribution Width 14.4 % (11.5-14.5) Platelet Count 100 x10^3/uL (140-400) Neutrophils (%) (Auto) 80 % (31-73) Lymphocytes (%) (Auto) 8 % (24-48) Monocytes (%) (Auto) 11 % (0-9) Eosinophils (%) (Auto) 1 % (0-3) Basophils (%) (Auto) 0 % (0-3) Neutrophils # (Auto) 8.4 x10^3/uL (1.8-7.7) Lymphocytes # (Auto) 0.8 x10^3/uL (1.0-4.8) Monocytes # (Auto) 1.1 x10^3/uL (0.0-1.1) Eosinophils # (Auto) 0.1 x10^3/uL (0.0-0.7) Basophils # (Auto) 0.0 x10^3/uL (0.0-0.2) Prothrombin Time 22.6 SEC (11.7-14.0) Prothromb Time International Ratio 2.0 (0.8-1.1) Sodium Level 138 mmol/L (136-145) Potassium Level 5.1 mmol/L (3.5-5.1) Chloride Level 103 mmol/L (98-107) Carbon Dioxide Level 26 mmol/L (21-32) Anion Gap 9 (6-14) Blood Urea Nitrogen 46 mg/dL (8-26) Creatinine 9.1 mg/dL (0.7-1.3) Estimated GFR (Cockcroft-Gault) 7.1 Glucose Level 339 mg/dL (70-99) Calcium Level 8.5 mg/dL (8.5-10.1) Procalcitonin 16.30 ng/mL (0.00-0.10) Review of Systems Review of Systems weak, chronic diarrhea, all esle neg, no efvers 24r hrs Assessment and Plan Assessmemt and Plan Problems Medical Problems: (1) Fever Status: Acute Comment Review of Relevant I have reviewed the following items keron (where applicable) has been applied. Labs Laboratory Tests Test 06/23/19 17:00 06/23/19 21:00 06/23/19 22:00 06/24/19 05:50 White Blood Count 9.2 x10^3/uL (4.0-11.0) 11.1 x10^3/uL (4.0-11.0) Red Blood Count 4.03 x10^6/uL (4.30-5.70) 3.70 x10^6/uL (4.30-5.70) Hemoglobin 11.5 g/dL (13.0-17.5) 10.6 g/dL (13.0-17.5) Hematocrit 34.7 % (39.0-53.0) 32.2 % (39.0-53.0) Mean Corpuscular Volume 86 fL (79-100) 87 fL (79-100) Mean Corpuscular Hemoglobin 29 pg (25-35) 29 pg (25-35) Mean Corpuscular Hemoglobin Concent 33 g/dL (31-37) 33 g/dL (31-37) Red Cell Distribution Width 14.4 % (11.5-14.5) 14.2 % (11.5-14.5) Platelet Count 110 x10^3/uL (140-400) 102 x10^3/uL (140-400) Neutrophils (%) (Auto) 89 % (31-73) 86 % (31-73) Lymphocytes (%) (Auto) 5 % (24-48) 6 % (24-48) Monocytes (%) (Auto) 6 % (0-9) 8 % (0-9) Eosinophils (%) (Auto) 0 % (0-3) 0 % (0-3) Basophils (%) (Auto) 0 % (0-3) 1 % (0-3) Neutrophils # (Auto) 8.2 x10^3/uL (1.8-7.7) 9.5 x10^3/uL (1.8-7.7) Lymphocytes # (Auto) 0.5 x10^3/uL (1.0-4.8) 0.6 x10^3/uL (1.0-4.8) Monocytes # (Auto) 0.5 x10^3/uL (0.0-1.1) 0.8 x10^3/uL (0.0-1.1) Eosinophils # (Auto) 0.0 x10^3/uL (0.0-0.7) 0.0 x10^3/uL (0.0-0.7) Basophils # (Auto) 0.0 x10^3/uL (0.0-0.2) 0.1 x10^3/uL (0.0-0.2) Prothrombin Time 20.3 SEC (11.7-14.0) Prothromb Time International Ratio 1.8 (0.8-1.1) Sodium Level 138 mmol/L (136-145) Potassium Level 4.1 mmol/L (3.5-5.1) Chloride Level 100 mmol/L (98-107) Carbon Dioxide Level 29 mmol/L (21-32) Anion Gap 9 (6-14) Blood Urea Nitrogen 17 mg/dL (8-26) Creatinine 2.1 mg/dL (0.7-1.3) Estimated GFR (Cockcroft-Gault) 38.7 BUN/Creatinine Ratio 8 (6-20) Glucose Level 170 mg/dL (70-99) Lactic Acid Level 1.6 mmol/L (0.4-2.0) 2.1 mmol/L (0.4-2.0) Calcium Level 8.2 mg/dL (8.5-10.1) Magnesium Level 1.5 mg/dL (1.8-2.4) Total Bilirubin 0.5 mg/dL (0.2-1.0) Aspartate Amino Transf (AST/SGOT) 10 U/L (15-37) Alanine Aminotransferase (ALT/SGPT) 10 U/L (16-63) Alkaline Phosphatase 65 U/L (46-116) Creatine Kinase 122 U/L (39-308) Creatine Kinase MB (Mass) 0.6 ng/mL (0.0-3.6) Creatine Kinase MB Relative Index 0.5 % (0-4) Troponin I Quantitative < 0.017 ng/mL (0.000-0.055) TV-Kny-[id number]-Type Natriuretic Peptide 1262 pg/mL (0-124) Total Protein 7.0 g/dL (6.4-8.2) Albumin 3.3 g/dL (3.4-5.0) Albumin/Globulin Ratio 0.9 (1.0-1.7) Procalcitonin 1.49 ng/mL (0.00-0.10) 9.73 ng/mL (0.00-0.10) Glucose (Fingerstick) 270 mg/dL (70-99) Test 06/24/19 08:02 06/24/19 11:57 06/24/19 12:00 06/24/19 13:13 Glucose (Fingerstick) 279 mg/dL (70-99) 66 mg/dL (70-99) 150 mg/dL (70-99) Influenza Type A Antigen Negative (NEGATIVE) Influenza Type B Antigen Negative (NEGATIVE) Test 06/24/19 16:32 06/24/19 20:51 06/25/19 03:30 06/25/19 07:33 Glucose (Fingerstick) 361 mg/dL (70-99) 81 mg/dL (70-99) 252 mg/dL (70-99) White Blood Count 10.5 x10^3/uL (4.0-11.0) Red Blood Count 3.50 x10^6/uL (4.30-5.70) Hemoglobin 10.2 g/dL (13.0-17.5) Hematocrit 30.6 % (39.0-53.0) Mean Corpuscular Volume 87 fL (79-100) Mean Corpuscular Hemoglobin 29 pg (25-35) Mean Corpuscular Hemoglobin Concent 33 g/dL (31-37) Red Cell Distribution Width 14.4 % (11.5-14.5) Platelet Count 100 x10^3/uL (140-400) Neutrophils (%) (Auto) 80 % (31-73) Lymphocytes (%) (Auto) 8 % (24-48) Monocytes (%) (Auto) 11 % (0-9) Eosinophils (%) (Auto) 1 % (0-3) Basophils (%) (Auto) 0 % (0-3) Neutrophils # (Auto) 8.4 x10^3/uL (1.8-7.7) Lymphocytes # (Auto) 0.8 x10^3/uL (1.0-4.8) Monocytes # (Auto) 1.1 x10^3/uL (0.0-1.1) Eosinophils # (Auto) 0.1 x10^3/uL (0.0-0.7) Basophils # (Auto) 0.0 x10^3/uL (0.0-0.2) Prothrombin Time 22.6 SEC (11.7-14.0) Prothromb Time International Ratio 2.0 (0.8-1.1) Sodium Level 138 mmol/L (136-145) Potassium Level 5.1 mmol/L (3.5-5.1) Chloride Level 103 mmol/L (98-107) Carbon Dioxide Level 26 mmol/L (21-32) Anion Gap 9 (6-14) Blood Urea Nitrogen 46 mg/dL (8-26) Creatinine 9.1 mg/dL (0.7-1.3) Estimated GFR (Cockcroft-Gault) 7.1 Glucose Level 339 mg/dL (70-99) Calcium Level 8.5 mg/dL (8.5-10.1) Procalcitonin 16.30 ng/mL (0.00-0.10) Laboratory Tests Test 06/24/19 11:57 06/24/19 12:00 06/24/19 13:13 06/24/19 16:32 Glucose (Fingerstick) 66 mg/dL (70-99) 150 mg/dL (70-99) 361 mg/dL (70-99) Influenza Type A Antigen Negative (NEGATIVE) Influenza Type B Antigen Negative (NEGATIVE) Test 06/24/19 20:51 06/25/19 03:30 06/25/19 07:33 Glucose (Fingerstick) 81 mg/dL (70-99) 252 mg/dL (70-99) White Blood Count 10.5 x10^3/uL (4.0-11.0) Red Blood Count 3.50 x10^6/uL (4.30-5.70) Hemoglobin 10.2 g/dL (13.0-17.5) Hematocrit 30.6 % (39.0-53.0) Mean Corpuscular Volume 87 fL (79-100) Mean Corpuscular Hemoglobin 29 pg (25-35) Mean Corpuscular Hemoglobin Concent 33 g/dL (31-37) Red Cell Distribution Width 14.4 % (11.5-14.5) Platelet Count 100 x10^3/uL (140-400) Neutrophils (%) (Auto) 80 % (31-73) Lymphocytes (%) (Auto) 8 % (24-48) Monocytes (%) (Auto) 11 % (0-9) Eosinophils (%) (Auto) 1 % (0-3) Basophils (%) (Auto) 0 % (0-3) Neutrophils # (Auto) 8.4 x10^3/uL (1.8-7.7) Lymphocytes # (Auto) 0.8 x10^3/uL (1.0-4.8) Monocytes # (Auto) 1.1 x10^3/uL (0.0-1.1) Eosinophils # (Auto) 0.1 x10^3/uL (0.0-0.7) Basophils # (Auto) 0.0 x10^3/uL (0.0-0.2) Prothrombin Time 22.6 SEC (11.7-14.0) Prothromb Time International Ratio 2.0 (0.8-1.1) Sodium Level 138 mmol/L (136-145) Potassium Level 5.1 mmol/L (3.5-5.1) Chloride Level 103 mmol/L (98-107) Carbon Dioxide Level 26 mmol/L (21-32) Anion Gap 9 (6-14) Blood Urea Nitrogen 46 mg/dL (8-26) Creatinine 9.1 mg/dL (0.7-1.3) Estimated GFR (Cockcroft-Gault) 7.1 Glucose Level 339 mg/dL (70-99) Calcium Level 8.5 mg/dL (8.5-10.1) Procalcitonin 16.30 ng/mL (0.00-0.10) Microbiology 06/23/19 Blood Culture - Preliminary, Resulted NO GROWTH AFTER 1 DAY Medications Current Medications Ibuprofen (Motrin) 600 mg 1X ONCE PO Last administered on 06/23/19at 16:56; Start 06/23/19 at 16:30; Stop 06/23/19 at 16:31; Status DC Acetaminophen/ Hydrocodone Bitart (Lortab 5/325) 2 tab 1X ONCE PO Last administered on 06/23/19at 16:56; Start 06/23/19 at 16:30; Stop 06/23/19 at 16:31; Status DC Piperacillin Sod/ Tazobactam Sod 4.5 gm/Sodium Chloride 100 ml @ 200 mls/hr 1X ONCE IV Last administered on 06/23/19at 16:57; Start 06/23/19 at 16:30; Stop 06/23/19 at 16:59; Status DC Vancomycin HCl (Vanco Per Pharmacy) 1 each 1X ONCE MC ; Start 06/23/19 at 16:30; Stop 06/23/19 at 16:31; Status Cancel Morphine Sulfate (Morphine Sulfate) 4 mg PRN Q15MIN PRN IV/SQ PAIN GREATER THAN 3/10; Start 06/23/19 at 16:30; Stop 06/24/19 at 16:29; Status DC Vancomycin HCl 1.75 gm/Sodium Chloride 500 ml @ 250 mls/hr 1X ONCE IV Last administered on 06/23/19at 18:21; Start 06/23/19 at 16:30; Stop 06/23/19 at 18:29; Status DC Amlodipine Besylate (Norvasc) 10 mg DAILY PO Last administered on 06/25/19at 09:17; Start 06/24/19 at 09:00 Ferrous Sulfate (Feosol) 325 mg MoWeFr@0900 PO ; Start 06/26/19 at 09:00 Furosemide (Lasix) 80 mg DAILY PO ; Start 06/24/19 at 09:00 Gabapentin (Neurontin) 300 mg TID PO ; Start 06/23/19 at 21:00; Stop 06/23/19 at 18:08; Status DC Insulin Human Lispro (HumaLOG) 15 units TIDWMEALS SQ Last administered on 06/25/19at 09:22; Start 06/24/19 at 08:00 Warfarin Sodium (Coumadin) 7.5 mg Marinelli@1600 PO ; Start 06/25/19 at 16:00 Warfarin Sodium (Coumadin) 5 mg MoTuWeThFrSa@1600 PO Last administered on 06/24/19at 16:15; Start 06/23/19 at 22:30 Insulin Glargine (Lantus Syringe) 30 unit QHS SQ Last administered on 06/24/19at 21:50; Start 06/23/19 at 21:00 Insulin Human Lispro (HumaLOG) 0-9 UNITS TIDWMEALS SQ Last administered on 06/24/19at 17:27; Start 06/24/19 at 08:00 Dextrose (Dextrose 50%-Water Syringe) 12.5 gm PRN Q15MIN PRN IV SEE COMMENTS; Start 06/23/19 at 18:00 Acetaminophen/ Codeine Phosphate (Tylenol #3) 1 tab PRN Q6HRS PRN PO MILD PAIN 1-3; Start 06/23/19 at 18:00 Ondansetron HCl (Zofran) 4 mg PRN Q6HRS PRN IVP NAUSEA/VOMITING; Start 06/23/19 at 18:00 Warfarin Sodium (Coumadin Per Physician) 1 each PRN DAILY PRN MC SEE COMMENTS Last administered on 06/25/19at 09:32; Start 06/23/19 at 18:00 Acetaminophen/ Hydrocodone Bitart (Lortab 10/325) 1 tab PRN Q6HRS PRN PO MODERATE TO SEVERE PAIN Last administered on 06/25/19at 05:52; Start 06/23/19 at 18:15 Gabapentin (Neurontin) 100 mg BID PO Last administered on 06/25/19at 09:17; Start 06/23/19 at 21:00 Ondansetron HCl (Zofran) 4 mg PRN Q8HRS PRN IV NAUSEA/VOMITING; Start 06/23/19 at 18:30; Stop 06/24/19 at 18:29; Status Cancel Fentanyl Citrate (Fentanyl 2ml Vial) 50 mcg PRN Q1HR PRN IV PAIN; Start 06/23 at 18:30; Stop 06/24/19 at 18:29; Status DC Piperacillin Sod/ Tazobactam Sod (Zosyn Per Pharmacy) 1 each PRN DAILY PRN MC SEE COMMENTS; Start 06/24/19 at 17:00 Piperacillin Sod/ Tazobactam Sod 2.25 gm/Sodium Chloride 50 ml @ 100 mls/hr Q8HRS IV Last administered on 06/25/19at 05:49; Start 06/24/19 at 17:00 Vancomycin HCl (Vanco Per Pharmacy) 1 each PRN DAILY PRN MC SEE COMMENTS Last administered on 06/25/19at 09:39; Start 06/25/19 at 09:15 Lactobacillus Rhamnosus (Culturelle) 1 cap BID PO ; Start 06/25/19 at 21:00 Vancomycin HCl (Vancomycin Random Level) 1 each 1X ONCE MC ; Start 06/26/19 at 06:00; Stop 06/26/19 at 06:01 Active Scripts Active Gabapentin 300 Mg Capsule 300 Mg PO TID MDD 1 Humalog (Insulin Lispro) 100 Unit/1 Ml Insuln.pen 15 Units SQ TIDWMEALS MDD 1 30 Days Lantus Solostar (Insulin Glargine,Hum.rec.anlog) 100 Unit/1 Ml Insuln.pen 30 Units SQ HS MDD 1 30 Days Amlodipine Besylate 10 Mg Tablet 10 Mg PO DAILY MDD 1 Reported Warfarin Sodium 5 Mg Tablet 1.5 Tab PO QSU Warfarin Sodium 5 Mg Tablet 1 Tab PO [id number] Gabapentin (Gabapentin) 300 Mg Capsule 2 Cap PO PRN DAILY PRN Vitals/I & O Vital Sign - Last 24 Hours 06/24/19 06/24/19 06/24/19 06/24/19 11:30 15:00 16:16 17:29 Temp 99.5 97.9 99.5 97.9 Pulse 89 105 Resp 18 18 B/P (MAP) 114/60 (78) 140/76 (97) Pulse Ox 96 96 O2 Delivery Room Air Room Air Room Air Room Air 06/24/19 06/24/19 06/24/19 06/25/19 19:00 20:20 23:00 03:00 Temp 99.0 98.5 99.3 99.0 98.5 99.3 Pulse 105 96 90 Resp 18 18 18 B/P (MAP) 125/59 (81) 108/55 (72) 119/62 (81) Pulse Ox 97 96 96 O2 Delivery Room Air Room Air Room Air Room Air 06/25/19 06/25/19 06/25/19 06/25/19 05:52 07:00 07:00 09:17 Temp 97.9 97.9 Pulse 80 80 Resp 20 17 B/P (MAP) 106/60 (75) 106/60 Pulse Ox 95 O2 Delivery Room Air Room Air Room Air 06/25/19 10:45 Temp 97.8 97.8 Pulse 82 Resp 17 B/P (MAP) 110/64 (79) Pulse Ox 96 O2 Delivery Room Air Intake and Output 06/24/19 06/24/19 06/25/19 15:00 23:00 07:00 Intake Total 740 ml 50 ml 1000 ml Balance 740 ml 50 ml 1000 ml ABDIAS GREWAL MD Jun 25, 2019 10:50
[2019-06-25 15:00] VITALS: BP 118/68
[2019-06-25] MEDS ORDERED: WARFARIN 7.5 MG TABLET. PO SCH (16:00)
[2019-06-25] MEDS ORDERED: IOHEXOL 240 MG/ML 50ML VIAL. PO ONE (18:15)
[2019-06-25] MEDS ORDERED: CONTRAST GIVEN. MC PRN (18:15)
[2019-06-25 19:00] VITALS: BP 134/92
[2019-06-25] MEDS: LACTOBACILLUS RHAMNOSUS GG 1 CAPSULE. PO SCH (20:32)
[2019-06-25] MEDS: INSULIN GLARGINE SYRINGE. SQ SCH (21:00)
[2019-06-25 23:00] VITALS: BP 125/67
[2019-06-26] MEDS ORDERED: IOHEXOL 240 MG/ML 50ML VIAL. ONE (00:59)
[2019-06-26 02:55] VITALS: BP 129/71
[2019-06-26] MEDS ORDERED: VANCOMYCIN RANDOM LEVEL. MC ONE (06:00)
[2019-06-26] MEDS: PIPERACILLIN/TAZOBACTAM 2.25 GM in IV NORMAL SALINE 50ML 50 ML IV SCH (06:04)
[2019-06-26 06:08] LABS: BASO % 0 % (0-3); EOS # 0.1 x10^3/uL (0.0-0.7); EOS % 2 % (0-3); HEMATOCRIT 31.1 % (39.0-53.0); HEMOGLOBIN 10.2 g/dL (13.0-17.5); LYMPH # 0.4 x10^3/uL (1.0-4.8); LYMPH % 6 % (24-48); MEAN CORPUSCULAR HEMOGLOBIN 29 pg (25-35); MEAN CORPUSCULAR HGB CONC 33 g/dL (31-37); MEAN CORPUSCULAR VOLUME 87 fL (79-100); MONO # 0.6 x10^3/uL (0.0-1.1); MONO % 9 % (0-9); NEUT % 83 % (31-73); PLATELET COUNT 120 x10^3/uL (140-400); RED BLOOD COUNT 3.56 x10^6/uL (4.30-5.70); RED CELL DISTRIBUTION WIDTH 14.9 % (11.5-14.5); WHITE BLOOD COUNT 7.3 x10^3/uL (4.0-11.0)
[2019-06-26 06:25] LABS: CALCIUM 8.7 mg/dL (8.5-10.1); CREATININE 9.8 mg/dL (0.7-1.3); GFR 6.5
[2019-06-26 06:27] LABS: POTASSIUM 5.2 mmol/L (3.5-5.1)
[2019-06-26 07:00] VITALS: BP 131/71
[2019-06-26] MEDS: INSULIN LISPRO 300 UNITS/3 ML VIAL. SQ SCH ×6 (08:00→17:00)
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
[2019-06-26] MEDS: LACTOBACILLUS RHAMNOSUS GG 1 CAPSULE. PO SCH ×2 (08:29→21:37)
[2019-06-26] MEDS: GABAPENTIN 100 MG CAPSULE. PO SCH ×2 (08:29→21:37)
[2019-06-26] MEDS: HYDROcodone/APAP 10/325 1 TAB TABLET PO PRN ×2 (08:34→17:47)
--- NOTE | 2019-06-26 08:52 | PDOC ---
PROGRESS NOTES Chief Complaint Chief Complaint Sepsis - unknown source, high fever, negative initial influenza ESRD on HD MWF Anuric Acute exacerbation of COPD Generalized weakness Elevated proclacitonin, no source yet Bilateral leg pain Ulcerative colitis Diabetes mellitus Peripheral neuropathy Hypertension History of DVT, on warfarin therapy History of colorectal cancer H/o hepatitis C Osteoarthritis H/o Proteus mirabilis UTI resistant to nitrofurantoin and tetracycline History of Present Illness History of Present Illness Fever pattern improving but Procalcitonin now 16 from 9 from 1 with no obvious source Legs hurt, i started gabapentin - no concerns re that last 2 days He is anuric - no urine sample He has a RT AV graft and no external catheters or skin rash He has chronic diarrhea bec of hx colon resection and anastomosis. BC prelim no growth CT scan negative for chest pathology. PLAN; ID over the weekend okayed vanc zosyn - WOF vanc - HD pt Servin CT today -c heck for sepsis source - was negative HD per renal Dw him Try nebs for his cough and robitussin Vitals Vitals Vital Signs Date Time Temp Pulse Resp B/P (MAP) Pulse Ox O2 Delivery O2 Flow Rate FiO2 06/26/19 08:34 16 Room Air 06/26/19 07:00 98.0 87 131/71 (91) 95 98.0 Physical Exam Physical Exam GENERAL: Propped up in bed, alert, no apparent distress. HEENT: Pupils equally round. Oropharynx pink and moist. NECK: Supple. LUNGS: Clear to auscultation. HEART: S1, S2. ABDOMEN: Soft and nontender with bowel sounds present. EXTREMITIES: No gross edema or cyanosis. RUE -- AV fistula unremarkable. SKIN: Warm to touch. No signs of rash. NEUROLOGIC: Alert and answering questions appropriately. General: Alert, Oriented X3, Cooperative, No acute distress Lungs: Clear Abdomen: Normal bowel sounds, Soft, No tenderness, No hepatosplenomegaly, No masses Extremities: No clubbing, No cyanosis, No edema, Normal pulses, No tenderness/swelling Skin: No rashes, No breakdown, No significant lesion, Other (dry skin) Labs LABS Laboratory Tests Test 06/25/19 11:23 06/25/19 16:10 06/25/19 20:36 06/26/19 05:30 Glucose (Fingerstick) 241 mg/dL (70-99) 113 mg/dL (70-99) 201 mg/dL (70-99) White Blood Count 7.3 x10^3/uL (4.0-11.0) Red Blood Count 3.56 x10^6/uL (4.30-5.70) Hemoglobin 10.2 g/dL (13.0-17.5) Hematocrit 31.1 % (39.0-53.0) Mean Corpuscular Volume 87 fL (79-100) Mean Corpuscular Hemoglobin 29 pg (25-35) Mean Corpuscular Hemoglobin Concent 33 g/dL (31-37) Red Cell Distribution Width 14.9 % (11.5-14.5) Platelet Count 120 x10^3/uL (140-400) Neutrophils (%) (Auto) 83 % (31-73) Lymphocytes (%) (Auto) 6 % (24-48) Monocytes (%) (Auto) 9 % (0-9) Eosinophils (%) (Auto) 2 % (0-3) Basophils (%) (Auto) 0 % (0-3) Neutrophils # (Auto) 6.0 x10^3/uL (1.8-7.7) Lymphocytes # (Auto) 0.4 x10^3/uL (1.0-4.8) Monocytes # (Auto) 0.6 x10^3/uL (0.0-1.1) Eosinophils # (Auto) 0.1 x10^3/uL (0.0-0.7) Basophils # (Auto) 0.0 x10^3/uL (0.0-0.2) Sodium Level 139 mmol/L (136-145) Potassium Level 5.2 mmol/L (3.5-5.1) Chloride Level 107 mmol/L (98-107) Carbon Dioxide Level 22 mmol/L (21-32) Anion Gap 10 (6-14) Blood Urea Nitrogen 51 mg/dL (8-26) Creatinine 9.8 mg/dL (0.7-1.3) Estimated GFR (Cockcroft-Gault) 6.5 Glucose Level 223 mg/dL (70-99) Calcium Level 8.7 mg/dL (8.5-10.1) Random Vancomycin Level 15.5 mcg/mL Test 06/26/19 07:16 Glucose (Fingerstick) 230 mg/dL (70-99) Assessment and Plan Assessmemt and Plan Problems Medical Problems: (1) Fever Status: Acute Comment Review of Relevant I have reviewed the following items keron (where applicable) has been applied. Labs Laboratory Tests Test 06/24/19 11:57 06/24/19 12:00 06/24/19 13:13 06/24/19 16:32 Glucose (Fingerstick) 66 mg/dL (70-99) 150 mg/dL (70-99) 361 mg/dL (70-99) Influenza Type A Antigen Negative (NEGATIVE) Influenza Type B Antigen Negative (NEGATIVE) Test 06/24/19 20:51 06/25/19 03:30 06/25/19 07:33 06/25/19 11:23 Glucose (Fingerstick) 81 mg/dL (70-99) 252 mg/dL (70-99) 241 mg/dL (70-99) White Blood Count 10.5 x10^3/uL (4.0-11.0) Red Blood Count 3.50 x10^6/uL (4.30-5.70) Hemoglobin 10.2 g/dL (13.0-17.5) Hematocrit 30.6 % (39.0-53.0) Mean Corpuscular Volume 87 fL (79-100) Mean Corpuscular Hemoglobin 29 pg (25-35) Mean Corpuscular Hemoglobin Concent 33 g/dL (31-37) Red Cell Distribution Width 14.4 % (11.5-14.5) Platelet Count 100 x10^3/uL (140-400) Neutrophils (%) (Auto) 80 % (31-73) Lymphocytes (%) (Auto) 8 % (24-48) Monocytes (%) (Auto) 11 % (0-9) Eosinophils (%) (Auto) 1 % (0-3) Basophils (%) (Auto) 0 % (0-3) Neutrophils # (Auto) 8.4 x10^3/uL (1.8-7.7) Lymphocytes # (Auto) 0.8 x10^3/uL (1.0-4.8) Monocytes # (Auto) 1.1 x10^3/uL (0.0-1.1) Eosinophils # (Auto) 0.1 x10^3/uL (0.0-0.7) Basophils # (Auto) 0.0 x10^3/uL (0.0-0.2) Prothrombin Time 22.6 SEC (11.7-14.0) Prothromb Time International Ratio 2.0 (0.8-1.1) Sodium Level 138 mmol/L (136-145) Potassium Level 5.1 mmol/L (3.5-5.1) Chloride Level 103 mmol/L (98-107) Carbon Dioxide Level 26 mmol/L (21-32) Anion Gap 9 (6-14) Blood Urea Nitrogen 46 mg/dL (8-26) Creatinine 9.1 mg/dL (0.7-1.3) Estimated GFR (Cockcroft-Gault) 7.1 Glucose Level 339 mg/dL (70-99) Calcium Level 8.5 mg/dL (8.5-10.1) Procalcitonin 16.30 ng/mL (0.00-0.10) Test 06/25/19 16:10 06/25/19 20:36 06/26/19 05:30 06/26/19 07:16 Glucose (Fingerstick) 113 mg/dL (70-99) 201 mg/dL (70-99) 230 mg/dL (70-99) White Blood Count 7.3 x10^3/uL (4.0-11.0) Red Blood Count 3.56 x10^6/uL (4.30-5.70) Hemoglobin 10.2 g/dL (13.0-17.5) Hematocrit 31.1 % (39.0-53.0) Mean Corpuscular Volume 87 fL (79-100) Mean Corpuscular Hemoglobin 29 pg (25-35) Mean Corpuscular Hemoglobin Concent 33 g/dL (31-37) Red Cell Distribution Width 14.9 % (11.5-14.5) Platelet Count 120 x10^3/uL (140-400) Neutrophils (%) (Auto) 83 % (31-73) Lymphocytes (%) (Auto) 6 % (24-48) Monocytes (%) (Auto) 9 % (0-9) Eosinophils (%) (Auto) 2 % (0-3) Basophils (%) (Auto) 0 % (0-3) Neutrophils # (Auto) 6.0 x10^3/uL (1.8-7.7) Lymphocytes # (Auto) 0.4 x10^3/uL (1.0-4.8) Monocytes # (Auto) 0.6 x10^3/uL (0.0-1.1) Eosinophils # (Auto) 0.1 x10^3/uL (0.0-0.7) Basophils # (Auto) 0.0 x10^3/uL (0.0-0.2) Sodium Level 139 mmol/L (136-145) Potassium Level 5.2 mmol/L (3.5-5.1) Chloride Level 107 mmol/L (98-107) Carbon Dioxide Level 22 mmol/L (21-32) Anion Gap 10 (6-14) Blood Urea Nitrogen 51 mg/dL (8-26) Creatinine 9.8 mg/dL (0.7-1.3) Estimated GFR (Cockcroft-Gault) 6.5 Glucose Level 223 mg/dL (70-99) Calcium Level 8.7 mg/dL (8.5-10.1) Random Vancomycin Level 15.5 mcg/mL Laboratory Tests Test 06/25/19 11:23 06/25/19 16:10 06/25/19 20:36 06/26/19 05:30 Glucose (Fingerstick) 241 mg/dL (70-99) 113 mg/dL (70-99) 201 mg/dL (70-99) White Blood Count 7.3 x10^3/uL (4.0-11.0) Red Blood Count 3.56 x10^6/uL (4.30-5.70) Hemoglobin 10.2 g/dL (13.0-17.5) Hematocrit 31.1 % (39.0-53.0) Mean Corpuscular Volume 87 fL (79-100) Mean Corpuscular Hemoglobin 29 pg (25-35) Mean Corpuscular Hemoglobin Concent 33 g/dL (31-37) Red Cell Distribution Width 14.9 % (11.5-14.5) Platelet Count 120 x10^3/uL (140-400) Neutrophils (%) (Auto) 83 % (31-73) Lymphocytes (%) (Auto) 6 % (24-48) Monocytes (%) (Auto) 9 % (0-9) Eosinophils (%) (Auto) 2 % (0-3) Basophils (%) (Auto) 0 % (0-3) Neutrophils # (Auto) 6.0 x10^3/uL (1.8-7.7) Lymphocytes # (Auto) 0.4 x10^3/uL (1.0-4.8) Monocytes # (Auto) 0.6 x10^3/uL (0.0-1.1) Eosinophils # (Auto) 0.1 x10^3/uL (0.0-0.7) Basophils # (Auto) 0.0 x10^3/uL (0.0-0.2) Sodium Level 139 mmol/L (136-145) Potassium Level 5.2 mmol/L (3.5-5.1) Chloride Level 107 mmol/L (98-107) Carbon Dioxide Level 22 mmol/L (21-32) Anion Gap 10 (6-14) Blood Urea Nitrogen 51 mg/dL (8-26) Creatinine 9.8 mg/dL (0.7-1.3) Estimated GFR (Cockcroft-Gault) 6.5 Glucose Level 223 mg/dL (70-99) Calcium Level 8.7 mg/dL (8.5-10.1) Random Vancomycin Level 15.5 mcg/mL Test 06/26/19 07:16 Glucose (Fingerstick) 230 mg/dL (70-99) Microbiology 06/23/19 Blood Culture - Preliminary, Resulted NO GROWTH AFTER 2 DAYS Medications Current Medications Ibuprofen (Motrin) 600 mg 1X ONCE PO Last administered on 06/23/19at 16:56; Start 06/23/19 at 16:30; Stop 06/23/19 at 16:31; Status DC Acetaminophen/ Hydrocodone Bitart (Lortab 5/325) 2 tab 1X ONCE PO Last administered on 06/23/19at 16:56; Start 06/23/19 at 16:30; Stop 06/23/19 at 16:31; Status DC Piperacillin Sod/ Tazobactam Sod 4.5 gm/Sodium Chloride 100 ml @ 200 mls/hr 1X ONCE IV Last administered on 06/23/19at 16:57; Start 06/23/19 at 16:30; Stop 06/23/19 at 16:59; Status DC Vancomycin HCl (Vanco Per Pharmacy) 1 each 1X ONCE MC ; Start 06/23/19 at 16:30; Stop 06/23/19 at 16:31; Status Cancel Morphine Sulfate (Morphine Sulfate) 4 mg PRN Q15MIN PRN IV/SQ PAIN GREATER THAN 3/10; Start 06/23/19 at 16:30; Stop 06/24/19 at 16:29; Status DC Vancomycin HCl 1.75 gm/Sodium Chloride 500 ml @ 250 mls/hr 1X ONCE IV Last administered on 06/23/19at 18:21; Start 06/23/19 at 16:30; Stop 06/23/19 at 18:29; Status DC Amlodipine Besylate (Norvasc) 10 mg DAILY PO Last administered on 06/25/19at 09:17; Start 06/24/19 at 09:00 Ferrous Sulfate (Feosol) 325 mg MoWeFr@0900 PO ; Start 06/26/19 at 09:00 Furosemide (Lasix) 80 mg DAILY PO ; Start 06/24/19 at 09:00 Gabapentin (Neurontin) 300 mg TID PO ; Start 06/23/19 at 21:00; Stop 06/23/19 at 18:08; Status DC Insulin Human Lispro (HumaLOG) 15 units TIDWMEALS SQ Last administered on 06/26/19at 08:31; Start 06/24/19 at 08:00 Warfarin Sodium (Coumadin) 7.5 mg Marinelli@1600 PO Last administered on 06/25/19at 16:47; Start 06/25/19 at 16:00 Warfarin Sodium (Coumadin) 5 mg MoTuWeThFrSa@1600 PO Last administered on 06/24/19at 16:15; Start 06/23/19 at 22:30 Insulin Glargine (Lantus Syringe) 30 unit QHS SQ Last administered on 06/25/19at 21:00; Start 06/23/19 at 21:00 Insulin Human Lispro (HumaLOG) 0-9 UNITS TIDWMEALS SQ Last administered on 06/25/19at 12:16; Start 06/24/19 at 08:00 Dextrose (Dextrose 50%-Water Syringe) 12.5 gm PRN Q15MIN PRN IV SEE COMMENTS; Start 06/23/19 at 18:00 Acetaminophen/ Codeine Phosphate (Tylenol #3) 1 tab PRN Q6HRS PRN PO MILD PAIN 1-3; Start 06/23/19 at 18:00 Ondansetron HCl (Zofran) 4 mg PRN Q6HRS PRN IVP NAUSEA/VOMITING; Start 06/23/19 at 18:00 Warfarin Sodium (Coumadin Per Physician) 1 each PRN DAILY PRN MC SEE COMMENTS Last administered on 06/25/19at 09:32; Start 06/23/19 at 18:00 Acetaminophen/ Hydrocodone Bitart (Lortab 10/325) 1 tab PRN Q6HRS PRN PO MODERATE TO SEVERE PAIN Last administered on 06/26/19at 08:34; Start 06/23/19 at 18:15 Gabapentin (Neurontin) 100 mg BID PO Last administered on 06/26/19at 08:29; Start 06/23/19 at 21:00 Ondansetron HCl (Zofran) 4 mg PRN Q8HRS PRN IV NAUSEA/VOMITING; Start 06/23/19 at 18:30; Stop 06/24/19 at 18:29; Status Cancel Fentanyl Citrate (Fentanyl 2ml Vial) 50 mcg PRN Q1HR PRN IV PAIN; Start 06/23/19 at 18:30; Stop 06/24/19 at 18:29; Status DC Piperacillin Sod/ Tazobactam Sod (Zosyn Per Pharmacy) 1 each PRN DAILY PRN MC SEE COMMENTS; Start 06/24/19 at 17:00 Piperacillin Sod/ Tazobactam Sod 2.25 gm/Sodium Chloride 50 ml @ 100 mls/hr Q8HRS IV Last administered on 06/26/19at 06:04; Start 06/24/19 at 17:00 Vancomycin HCl (Vanco Per Pharmacy) 1 each PRN DAILY PRN MC SEE COMMENTS Last administered on 06/25/19at 09:39; Start 06/25/19 at 09:15 Lactobacillus Rhamnosus (Culturelle) 1 cap BID PO Last administered on 06/26/19at 08:29; Start 06/25/19 at 21:00 Vancomycin HCl (Vancomycin Random Level) 1 each 1X ONCE MC ; Start 06/26/19 at 06:00; Stop 06/26/19 at 06:01; Status DC Iohexol (Omnipaque 240 Mg/ml) 50 ml 1X ONCE PO Last administered on 06/25/19at 18:36; Start 06/25/19 at 18:15; Stop 06/25/19 at 18:16; Status DC Info (CONTRAST GIVEN -- Rx MONITORING) 1 each PRN DAILY PRN MC SEE COMMENTS Last administered on 06/25/19at 19:09; Start 06/25/19 at 18:15; Stop 06/27/19 at 18:14 Iohexol (Omnipaque 240 Mg/ml) 50 ml STK-MED ONCE .ROUTE ; Start 06/26/19 at 00:59; Stop 06/26/19 at 00:59; Status DC Active Scripts Active Gabapentin 300 Mg Capsule 300 Mg PO TID MDD 1 Humalog (Insulin Lispro) 100 Unit/1 Ml Insuln.pen 15 Units SQ TIDWMEALS MDD 1 30 Days Lantus Solostar (Insulin Glargine,Hum.rec.anlog) 100 Unit/1 Ml Insuln.pen 30 Units SQ HS MDD 1 30 Days Amlodipine Besylate 10 Mg Tablet 10 Mg PO DAILY MDD 1 Reported Warfarin Sodium 5 Mg Tablet 1.5 Tab PO QSU Warfarin Sodium 5 Mg Tablet 1 Tab PO [id number] Gabapentin (Gabapentin) 300 Mg Capsule 2 Cap PO PRN DAILY PRN Vitals/I & O Vital Sign - Last 24 Hours 06/25/19 06/25/19 06/25/19 06/25/19 09:17 10:45 12:17 13:24 Temp 97.8 97.8 Pulse 80 82 Resp 17 B/P (MAP) 106/60 110/64 (79) Pulse Ox 96 O2 Delivery Room Air Room Air Room Air 06/25/19 06/25/19 06/25/19 06/25/19 15:00 19:00 20:00 20:32 Temp 97.8 97.5 97.8 97.5 Pulse 80 83 Resp 17 16 20 B/P (MAP) 118/68 (85) 134/92 (106) Pulse Ox 96 97 O2 Delivery Room Air Room Air Room Air Room Air 06/25/19 06/25/19 06/26/19 06/26/19 21:32 23:00 02:55 07:00 Temp 98.2 98.0 98.0 98.2 98.0 98.0 Pulse 83 86 87 Resp 18 16 16 18 B/P (MAP) 125/67 (86) 129/71 (90) 131/71 (91) Pulse Ox 93 94 95 O2 Delivery Room Air Room Air Room Air Room Air 06/26/19 08:34 Resp 16 O2 Delivery Room Air Intake and Output 06/25/19 06/25/19 06/26/19 15:00 23:00 07:00 Intake Total 600 ml 550 ml 400 ml Output Total 0 ml Balance 600 ml 550 ml 400 ml TIM RIOS MD Jun 26, 2019 08:52
--- NOTE | 2019-06-26 09:37 | NUR ---
Holding antihypertensives for dialysis today, d/w Colleen THOMASnew account interviewer, and patient verb. understanding POC.
[2019-06-26] MEDS ORDERED: ALBUTEROL SULFATE 2.5 MG/3 ML NEBU. NEB PRN (10:15)
[2019-06-26 11:00] VITALS: BP 128/65
--- NOTE | 2019-06-26 11:29 | PDOC ---
Infectious Disease Note Subjective Subjective Feeling same as yesterday, not quite himself + cough + diarrhea, no more than usual Denies CP/SOA/chills/N/V No fever last 48 hours ROS ROS per HPI Vital Sign Vital Signs Vital Signs Date Time Temp Pulse Resp B/P (MAP) Pulse Ox O2 Delivery O2 Flow Rate FiO2 06/26/19 09:34 16 Room Air 06/26/19 07:00 98.0 87 131/71 (91) 95 98.0 Physical Exam PHYSICAL EXAM GENERAL: Propped up in bed, alert, no apparent distress. HEENT: Pupils equally round. Oropharynx pink and moist. NECK: Supple. LUNGS: Clear to auscultation. HEART: S1, S2. ABDOMEN: Soft and nontender with bowel sounds present. EXTREMITIES: No gross edema or cyanosis. RUE -- AV fistula unremarkable. SKIN: Warm to touch. No signs of rash. NEUROLOGIC: Alert and answering questions appropriately. Labs Lab Laboratory Tests Test 06/25/19 16:10 06/25/19 20:36 06/26/19 05:30 06/26/19 07:16 Glucose (Fingerstick) 113 mg/dL (70-99) 201 mg/dL (70-99) 230 mg/dL (70-99) White Blood Count 7.3 x10^3/uL (4.0-11.0) Red Blood Count 3.56 x10^6/uL (4.30-5.70) Hemoglobin 10.2 g/dL (13.0-17.5) Hematocrit 31.1 % (39.0-53.0) Mean Corpuscular Volume 87 fL (79-100) Mean Corpuscular Hemoglobin 29 pg (25-35) Mean Corpuscular Hemoglobin Concent 33 g/dL (31-37) Red Cell Distribution Width 14.9 % (11.5-14.5) Platelet Count 120 x10^3/uL (140-400) Neutrophils (%) (Auto) 83 % (31-73) Lymphocytes (%) (Auto) 6 % (24-48) Monocytes (%) (Auto) 9 % (0-9) Eosinophils (%) (Auto) 2 % (0-3) Basophils (%) (Auto) 0 % (0-3) Neutrophils # (Auto) 6.0 x10^3/uL (1.8-7.7) Lymphocytes # (Auto) 0.4 x10^3/uL (1.0-4.8) Monocytes # (Auto) 0.6 x10^3/uL (0.0-1.1) Eosinophils # (Auto) 0.1 x10^3/uL (0.0-0.7) Basophils # (Auto) 0.0 x10^3/uL (0.0-0.2) Sodium Level 139 mmol/L (136-145) Potassium Level 5.2 mmol/L (3.5-5.1) Chloride Level 107 mmol/L (98-107) Carbon Dioxide Level 22 mmol/L (21-32) Anion Gap 10 (6-14) Blood Urea Nitrogen 51 mg/dL (8-26) Creatinine 9.8 mg/dL (0.7-1.3) Estimated GFR (Cockcroft-Gault) 6.5 Glucose Level 223 mg/dL (70-99) Calcium Level 8.7 mg/dL (8.5-10.1) Random Vancomycin Level 15.5 mcg/mL Hepatitis B Surface Antigen Nonreactive (Nonreactive) CT chest/A/P Impression: Lung khan are clear. Subtotal colectomy. Ileoanal J-pouch is present with wall thickening of the distal aspect of the J-pouch extending to the anastomosis. This may represent spasm or contraction as there is no surrounding stranding. Correlate clinically. Subtle cervical vertebral stranding about the urinary bladder is noted. Correlate for underlying cystitis. Prostatomegaly. Micro Microbiology 06/23/19 Blood Culture - Preliminary, Resulted NO GROWTH AFTER 2 DAY Objective Assessment Fever - better Cough - influenza neg ESRD on HD via AV fistula Ulcerative colitis DM h/o DVT on warfarin therapy Plan Plan of Care Discontinue empiric Zosyn and begin Augmentin cont vanc Random trough 15.3 BC neg so far Sputum C&S pending Supportive care Attending Co-Sign Attending Co-Sign The patient was seen and interviewed as well as examined at the bedside. The chart was reviewed. The case was discussed. Agree with the plan of care. BRIAN ARROYO APRN Jun 26, 2019 11:29 LEV CORONADO MD Jun 26, 2019 16:31
[2019-06-26] MEDS: FERROUS SULFATE 325 MG TABLET. PO SCH (11:51)
[2019-06-26] MEDS: BUDESONIDE 0.5 MG/2 ML NEBU. NEB SCH ×2 (13:17→19:39)
[2019-06-26] MEDS ORDERED: IV NORMAL SALINE 1000ML BAG 1,000 ML IV PRN ×2 (13:19)
[2019-06-26] MEDS: VANCOMYCIN PER PHARMACY MC PRN (13:24)
[2019-06-26] MEDS ORDERED: DIALYSIS PATIENT. MC PRN (13:30)
[2019-06-26] MEDS ORDERED: ACETAMINOPHEN 500 MG TABLET PO PRN (13:30)
[2019-06-26] MEDS ORDERED: diphenhydrAMINE 50 MG/ML VIAL IV PRN ×2 (13:30)
[2019-06-26] MEDS ORDERED: LIDOCAINE 1% PF 2 ML VIAL. ONE ×2 (13:58→14:00)
--- NOTE | 2019-06-26 14:10 | NUR ---
Patient to dialysis at 1400, 1400 antibiotic not given as going to dialysis.
--- NOTE | 2019-06-26 14:27 | NUR ---
Pharmacy Vancomycin Dosing Note S:Consulted to monitor and dose vancomycin started 06/23/19. O:UMER VANCE is a 64 year old M with Empiric FEVER . Height: 6 feet, 3 inches Weight: 93.895624 kg [place] Body Weight: 84.50 Adjusted Body Weight: 87.10 Dosing Weight: Actual Other Antibiotics: ZOSYN LABS: Last BUN: 51 Last Creatinine: 9.8 Creatinine Clearance: HD MWF mL/min Last WBC: 7.3 Last Procalcitonin: 16.3 Tmax (past 24 hours): 98.2 Microbiology: 06/23 Blood: NGTD I/O: 1550/0 Drug Levels: Last Random level: 15.5 on 06/26/19 at 0530 Last dose given 06/23/19 at 1821 Vancomycin Dosing: Loading Dose: 1750 mg x1 Dosing Weight: Actual Target Trough: 10-20 A: Based on: LEVEL THIS AM, P: 1. GIVE Vancomycin 500 mg IV MWF POST HD SESSIONS 2. Follow up Random level NEEDED. 3. Pharmacy will continue to monitor, follow and adjust therapy as needed. ASHA ESQUIVEL [facility], 06/26/19 [id number]
--- NOTE | 2019-06-26 14:47 | PDOC ---
SUBJECTIVE ROS Seen on HD , tolerating well OBJECTIVE Vital Signs Vital Signs Date Time Temp Pulse Resp B/P (MAP) Pulse Ox O2 Delivery O2 Flow Rate FiO2 06/26/19 13:17 95 Room Air 06/26/19 11:00 97.9 91 18 128/65 (86) 97.9 I & 0 Intake and Output 06/26/19 07:00 Intake Total 1550 ml Output Total 0 ml Balance 1550 ml Intake Oral 1500 ml IV Total 50 ml Output Urine Total 0 ml # Bowel Movements 2 PHYSICAL EXAM Physical Exam GENERAL: Propped up in bed, alert, no apparent distress. HEENT: Pupils equally round. Oropharynx pink and moist. NECK: Supple. LUNGS: Clear to auscultation. HEART: S1, S2. ABDOMEN: Soft and nontender with bowel sounds present. EXTREMITIES: No gross edema or cyanosis. RUE -- AV fistula unremarkable. SKIN: Warm to touch. No signs of rash. NEUROLOGIC: Alert and answering questions appropriately. DIAGNOSIS/ASSESSMENT Assessment & Plan ESRD on HD MWF- Seen on HD, tolerating well, continue as ordered , DALTON Marin Acute exacerbation of COPD Generalized weakness Diabetes mellitus- Primary managing Hypertension- Stable History of DVT, on warfarin therapy History of colorectal cancer H/o hepatitis C H/o Proteus mirabilis UTI COMMENT/RELEVANT DATA Meds Current Medications Medications (Trade) Dose Ordered Sig/Raymon Start Time Stop Time Status Last Admin Dose Admin Acetaminophen (Tylenol) 500 mg 1X PRN PRN 06/26/19 13:30 06/27/19 13:29 Acetaminophen/ Codeine Phosphate (Tylenol #3) 1 tab PRN Q6HRS PRN 06/23/19 18:00 06/26/19 08:53 DC Acetaminophen/ Hydrocodone Bitart (Lortab 10/325) 1 tab PRN Q6HRS PRN 06/23/19 18:15 06/26/19 08:34 1 TAB Acetaminophen/ Hydrocodone Bitart (Lortab 5/325) 2 tab 1X ONCE 06/23/19 16:30 06/23/19 16:31 DC 06/23/19 16:56 2 TAB Albuterol Sulfate (Ventolin Neb Soln) 2.5 mg PRN Q4HRS PRN 06/26/19 10:15 Amlodipine Besylate (Norvasc) 10 mg DAILY 06/24/19 09:00 06/25/19 09:17 10 MG Budesonide (Pulmicort) 0.5 mg RTBID 06/26/19 11:00 06/26/19 13:17 0.5 MG Dextrose (Dextrose 50%-Water Syringe) 12.5 gm PRN Q15MIN PRN 06/23/19 18:00 Diphenhydramine HCl (Benadryl) 25 mg 1X PRN PRN 06/26/19 13:30 06/27/19 13:29 Fentanyl Citrate (Fentanyl 2ml Vial) 50 mcg PRN Q1HR PRN 06/23/19 18:30 06/24/19 18:29 DC Ferrous Sulfate (Feosol) 325 mg MoWeFr@0900 06/26/19 09:00 06/26/19 11:51 325 MG Furosemide (Lasix) 80 mg DAILY 06/24/19 09:00 06/26/19 08:53 DC Gabapentin (Neurontin) 100 mg BID 06/23/19 21:00 06/26/19 08:29 100 MG Guaifenesin (Robitussin Dm) 10 ml PRN Q6HRS PRN 06/26/19 10:15 Ibuprofen (Motrin) 600 mg 1X ONCE 06/23/19 16:30 06/23/19 16:31 DC 06/23/19 16:56 600 MG Info (CONTRAST GIVEN -- Rx MONITORING) 1 each PRN DAILY PRN 06/25/19 18:15 06/27/19 18:14 06/25/19 19:09 1 EACH Info (PHARMACY MONITORING -- do not chart) 1 each PRN DAILY PRN 06/26/19 13:30 Insulin Glargine (Lantus Syringe) 30 unit QHS 06/23/19 21:00 06/25/19 21:00 30 UNIT Insulin Human Lispro (HumaLOG) 0-9 UNITS TIDWMEALS 06/24/19 08:00 06/25/19 12:16 5 UNITS Iohexol (Omnipaque 240 Mg/ml) 50 ml STK-MED ONCE 06/26/19 00:59 06/26/19 00:59 DC Lactobacillus Rhamnosus (Culturelle) 1 cap BID 06/25/19 21:00 06/26/19 08:29 1 CAP Lidocaine HCl (Xylocaine-Mpf 1% 2ml Vial) 2 ml STK-MED ONCE 06/26/19 13:58 06/26/19 13:58 DC Morphine Sulfate (Morphine Sulfate) 4 mg PRN Q15MIN PRN 06/23/19 16:30 06/24/19 16:29 DC Ondansetron HCl (Zofran) 4 mg PRN Q8HRS PRN 06/23/19 18:30 06/24/19 18:29 Cancel Piperacillin Sod/ Tazobactam Sod (Zosyn Per Pharmacy) 1 each PRN DAILY PRN 06/24/19 17:00 Piperacillin Sod/ Tazobactam Sod 2.25 gm/Sodium Chloride 50 ml @ 100 mls/hr Q8HRS 06/24/19 17:00 06/26/19 06:04 100 MLS/HR Piperacillin Sod/ Tazobactam Sod 4.5 gm/Sodium Chloride 100 ml @ 200 mls/hr 1X ONCE 06/23/19 16:30 06/23/19 16:59 DC 06/23/19 16:57 200 MLS/HR Sodium Chloride 1,000 ml @ 400 mls/hr Q2H30M PRN 06/26/19 13:19 06/27/19 01:18 Vancomycin HCl (Vanco Per Pharmacy) 1 each PRN DAILY PRN 06/25/19 09:15 06/26/19 13:24 1 EACH Vancomycin HCl (Vancomycin Random Level) 1 each 1X ONCE 06/26/19 06:00 06/26/19 06:01 DC Vancomycin HCl 1.75 gm/Sodium Chloride 500 ml @ 250 mls/hr 1X ONCE 06/23/19 16:30 06/23/19 18:29 DC 06/23/19 18:21 250 MLS/HR Vancomycin HCl 500 mg/Sodium Chloride 100 ml @ 100 mls/hr QMWF 06/26/19 16:00 Warfarin Sodium (Coumadin Per Physician) 1 each PRN DAILY PRN 06/23/19 18:00 06/25/19 09:32 1 EACH Warfarin Sodium (Coumadin) 5 mg [id number]@1600 06/23/19 22:30 06/24/19 16:15 5 MG Lab Laboratory Tests Test 06/25/19 16:10 06/25/19 20:36 06/26/19 05:30 06/26/19 07:16 Glucose (Fingerstick) 113 mg/dL (70-99) 201 mg/dL (70-99) 230 mg/dL (70-99) White Blood Count 7.3 x10^3/uL (4.0-11.0) Red Blood Count 3.56 x10^6/uL (4.30-5.70) Hemoglobin 10.2 g/dL (13.0-17.5) Hematocrit 31.1 % (39.0-53.0) Mean Corpuscular Volume 87 fL (79-100) Mean Corpuscular Hemoglobin 29 pg (25-35) Mean Corpuscular Hemoglobin Concent 33 g/dL (31-37) Red Cell Distribution Width 14.9 % (11.5-14.5) Platelet Count 120 x10^3/uL (140-400) Neutrophils (%) (Auto) 83 % (31-73) Lymphocytes (%) (Auto) 6 % (24-48) Monocytes (%) (Auto) 9 % (0-9) Eosinophils (%) (Auto) 2 % (0-3) Basophils (%) (Auto) 0 % (0-3) Neutrophils # (Auto) 6.0 x10^3/uL (1.8-7.7) Lymphocytes # (Auto) 0.4 x10^3/uL (1.0-4.8) Monocytes # (Auto) 0.6 x10^3/uL (0.0-1.1) Eosinophils # (Auto) 0.1 x10^3/uL (0.0-0.7) Basophils # (Auto) 0.0 x10^3/uL (0.0-0.2) Sodium Level 139 mmol/L (136-145) Potassium Level 5.2 mmol/L (3.5-5.1) Chloride Level 107 mmol/L (98-107) Carbon Dioxide Level 22 mmol/L (21-32) Anion Gap 10 (6-14) Blood Urea Nitrogen 51 mg/dL (8-26) Creatinine 9.8 mg/dL (0.7-1.3) Estimated GFR (Cockcroft-Gault) 6.5 Glucose Level 223 mg/dL (70-99) Calcium Level 8.7 mg/dL (8.5-10.1) Random Vancomycin Level 15.5 mcg/mL Hepatitis B Surface Antigen Nonreactive (Nonreactive) Test 06/26/19 11:12 Glucose (Fingerstick) 178 mg/dL (70-99) Results All relevant outside records, renal labs, imaging studies, telemetry/EKG's were reviewed. NNAMDI TESFAYE MD Jun 26, 2019 14:46
[2019-06-26] MEDS ORDERED: VANCOMYCIN 500 MG in IV NORMAL SALINE 100ML 100 ML IV SCH (16:00)
--- NOTE | 2019-06-26 16:09 | NUR ---
SW following pt for dc planning. Chart reviewed. Pt lives at home with family, and goes to [facility], phone: [phone], fax: [phone] on MWF. No other needs noted at this time. Will continue to follow pt as needed.
[2019-06-26] MEDS: AMOXICILLIN/K CLAV 500/125MG TABLET. PO SCH (17:40)
[2019-06-26] MEDS: WARFARIN 5 MG TABLET. PO SCH (17:41)
[2019-06-26] MEDS: amLODIPine BESYLATE 10 MG TABLET PO SCH (17:42)
--- NOTE | 2019-06-26 17:49 | NUR ---
Patient return from dialysis per bed. Patient alert and oriented times four, call light at hand, side rails up times four, call light at hand, pm meal ordered, insulin held as blood sugar 102. Semi-liquid stool brown sent fro stool culture, patient has had no other BM's today. Continue cares and monitor. See VS record and emar. Patient verb. understanding POC.
[2019-06-26 19:00] VITALS: BP 125/67
[2019-06-26] MEDS ORDERED: AMOXICILLIN/K CLAV 500/125MG TABLET. PO SCH (21:00)
[2019-06-26] MEDS: INSULIN GLARGINE SYRINGE. SQ SCH (21:52)
[2019-06-26 23:00] VITALS: BP 126/61
[2019-06-27] MEDS: HYDROcodone/APAP 10/325 1 TAB TABLET PO PRN ×3 (02:30→20:48)
[2019-06-27 03:00] VITALS: BP 112/72
[2019-06-27 04:20] LABS: PROTHROMBIN TIME PATIENT 22.4 SEC (11.7-14.0)
[2019-06-27 07:00] VITALS: BP 122/62
[2019-06-27] MEDS: BUDESONIDE 0.5 MG/2 ML NEBU. NEB SCH ×2 (07:50→19:39)
[2019-06-27] MEDS: guaiFENesin DM 200MG/20MG 10 ML SYRUP PO PRN ×2 (07:56→13:48)
[2019-06-27] MEDS: AMOXICILLIN/K CLAV 500/125MG TABLET. PO SCH (07:57)
[2019-06-27] MEDS: GABAPENTIN 100 MG CAPSULE. PO SCH ×2 (07:57→20:48)
[2019-06-27] MEDS: LACTOBACILLUS RHAMNOSUS GG 1 CAPSULE. PO SCH ×2 (07:57→20:48)
[2019-06-27] MEDS: INSULIN LISPRO 300 UNITS/3 ML VIAL. SQ SCH ×6 (08:01→17:32)
[2019-06-27] MEDS: amLODIPine BESYLATE 10 MG TABLET PO SCH (08:02)
--- NOTE | 2019-06-27 08:35 | PDOC ---
PROGRESS NOTES Chief Complaint Chief Complaint Sepsis - unknown source, high fever, negative initial influenza ESRD on HD MWF Anuric Acute exacerbation of COPD Generalized weakness Elevated proclacitonin, no source yet Bilateral leg pain Ulcerative colitis Diabetes mellitus Peripheral neuropathy Hypertension History of DVT, on warfarin therapy History of colorectal cancer H/o hepatitis C Osteoarthritis H/o Proteus mirabilis UTI resistant to nitrofurantoin and tetracycline History of Present Illness History of Present Illness Fever pattern improving but Procalcitonin was elevated with no obvious source Legs hurt, restarted gabapentin He is anuric - no urine sample He has a RT AV graft and no external catheters or skin rash He has chronic diarrhea bec of hx colon resection and anastomosis. BC prelim no growth CT scan negative for chest pathology. Fever 101F overnight. He feels slightly better. still coughing and aching. PLAN; ID over the weekend okayed vanc zosyn - [facility]OF vanc - HD pt [place] CT was negative REPEAT FLU SWAB HD per renal Dw him Try nebs for his cough and robitussin Vitals Vitals Vital Signs Date Time Temp Pulse Resp B/P (MAP) Pulse Ox O2 Delivery O2 Flow Rate FiO2 06/27/19 08:02 69 122/62 06/27/19 07:51 97 Room Air 06/27/19 03:57 98.9 98.9 06/27/19 03:00 18 Physical Exam Physical Exam GENERAL: Propped up in bed, alert, no apparent distress. HEENT: Pupils equally round. Oropharynx pink and moist. NECK: Supple. LUNGS: Clear to auscultation. HEART: S1, S2. ABDOMEN: Soft and nontender with bowel sounds present. EXTREMITIES: No gross edema or cyanosis. RUE -- AV fistula unremarkable. SKIN: Warm to touch. No signs of rash. NEUROLOGIC: Alert and answering questions appropriately. General: Alert, Oriented X3, Cooperative, No acute distress Lungs: Clear Abdomen: Normal bowel sounds, Soft, No tenderness, No hepatosplenomegaly, No ma sses Extremities: No clubbing, No cyanosis, No edema, Normal pulses, No tenderness/swelling Skin: No rashes, No breakdown, No significant lesion, Other (dry skin) Labs LABS Laboratory Tests Test 06/26/19 11:12 06/26/19 17:40 06/26/19 21:06 06/27/19 03:29 Glucose (Fingerstick) 178 mg/dL (70-99) 102 mg/dL (70-99) 244 mg/dL (70-99) Prothrombin Time 22.4 SEC (11.7-14.0) Prothromb Time International Ratio 2.0 (0.8-1.1) Test 06/27/19 07:46 Glucose (Fingerstick) 305 mg/dL (70-99) Assessment and Plan Assessmemt and Plan Problems Medical Problems: (1) Fever Status: Acute Comment Review of Relevant I have reviewed the following items keron (where applicable) has been applied. Labs Laboratory Tests Test 06/25/19 11:23 06/25/19 16:10 06/25/19 20:36 06/26/19 05:30 Glucose (Fingerstick) 241 mg/dL (70-99) 113 mg/dL (70-99) 201 mg/dL (70-99) White Blood Count 7.3 x10^3/uL (4.0-11.0) Red Blood Count 3.56 x10^6/uL (4.30-5.70) Hemoglobin 10.2 g/dL (13.0-17.5) Hematocrit 31.1 % (39.0-53.0) Mean Corpuscular Volume 87 fL (79-100) Mean Corpuscular Hemoglobin 29 pg (25-35) Mean Corpuscular Hemoglobin Concent 33 g/dL (31-37) Red Cell Distribution Width 14.9 % (11.5-14.5) Platelet Count 120 x10^3/uL (140-400) Neutrophils (%) (Auto) 83 % (31-73) Lymphocytes (%) (Auto) 6 % (24-48) Monocytes (%) (Auto) 9 % (0-9) Eosinophils (%) (Auto) 2 % (0-3) Basophils (%) (Auto) 0 % (0-3) Neutrophils # (Auto) 6.0 x10^3/uL (1.8-7.7) Lymphocytes # (Auto) 0.4 x10^3/uL (1.0-4.8) Monocytes # (Auto) 0.6 x10^3/uL (0.0-1.1) Eosinophils # (Auto) 0.1 x10^3/uL (0.0-0.7) Basophils # (Auto) 0.0 x10^3/uL (0.0-0.2) Sodium Level 139 mmol/L (136-145) Potassium Level 5.2 mmol/L (3.5-5.1) Chloride Level 107 mmol/L (98-107) Carbon Dioxide Level 22 mmol/L (21-32) Anion Gap 10 (6-14) Blood Urea Nitrogen 51 mg/dL (8-26) Creatinine 9.8 mg/dL (0.7-1.3) Estimated GFR (Cockcroft-Gault) 6.5 Glucose Level 223 mg/dL (70-99) Calcium Level 8.7 mg/dL (8.5-10.1) Random Vancomycin Level 15.5 mcg/mL Hepatitis B Surface Antigen Nonreactive (Nonreactive) Test 06/26/19 07:16 06/26/19 11:12 06/26/19 17:40 06/26/19 21:06 Glucose (Fingerstick) 230 mg/dL (70-99) 178 mg/dL (70-99) 102 mg/dL (70-99) 244 mg/dL (70-99) Test 06/27/19 03:29 06/27/19 07:46 Prothrombin Time 22.4 SEC (11.7-14.0) Prothromb Time International Ratio 2.0 (0.8-1.1) Glucose (Fingerstick) 305 mg/dL (70-99) Laboratory Tests Test 06/26/19 11:12 06/26/19 17:40 06/26/19 21:06 06/27/19 03:29 Glucose (Fingerstick) 178 mg/dL (70-99) 102 mg/dL (70-99) 244 mg/dL (70-99) Prothrombin Time 22.4 SEC (11.7-14.0) Prothromb Time International Ratio 2.0 (0.8-1.1) Test 06/27/19 07:46 Glucose (Fingerstick) 305 mg/dL (70-99) Microbiology 06/23/19 Blood Culture - Preliminary, Resulted NO GROWTH AFTER 3 DAYS Medications Current Medications Ibuprofen (Motrin) 600 mg 1X ONCE PO Last administered on 06/23/19at 16:56; Start 06/23/19 at 16:30; Stop 06/23/19 at 16:31; Status DC Acetaminophen/ Hydrocodone Bitart (Lortab 5/325) 2 tab 1X ONCE PO Last administered on 06/23/19at 16:56; Start 06/23/19 at 16:30; Stop 06/23/19 at 16:31; Status DC Piperacillin Sod/ Tazobactam Sod 4.5 gm/Sodium Chloride 100 ml @ 200 mls/hr 1X ONCE IV Last administered on 06/23/19at 16:57; Start 06/23/19 at 16:30; Stop 06/23/19 at 16:59; Status DC Vancomycin HCl (Vanco Per Pharmacy) 1 each 1X ONCE MC ; Start 06/23/19 at 16:30; Stop 06/23/19 at 16:31; Status Cancel Morphine Sulfate (Morphine Sulfate) 4 mg PRN Q15MIN PRN IV/SQ PAIN GREATER THAN 3/10; Start 06/23/19 at 16:30; Stop 06/24/19 at 16:29; Status DC Vancomycin HCl 1.75 gm/Sodium Chloride 500 ml @ 250 mls/hr 1X ONCE IV Last administered on 06/23/19at 18:21; Start 06/23/19 at 16:30; Stop 06/23/19 at 18:29; Status DC Amlodipine Besylate (Norvasc) 10 mg DAILY PO Last administered on 06/27/19at 08:02; Start 06/24/19 at 09:00 Ferrous Sulfate (Feosol) 325 mg MoWeFr@0900 PO Last administered on 06/26/19at 11:51; Start 06/26/19 at 09:00 Furosemide (Lasix) 80 mg DAILY PO ; Start 06/24/19 at 09:00; Stop 06/26/19 at 08:53; Status DC Gabapentin (Neurontin) 300 mg TID PO ; Start 06/23/19 at 21:00; Stop 06/23/19 at 18:08; Status DC Insulin Human Lispro (HumaLOG) 15 units TIDWMEALS SQ Last administered on 06/27/19at 08:01; Start 06/24/19 at 08:00 Warfarin Sodium (Coumadin) 7.5 mg Marinelli@1600 PO Last administered on 06/25/19at 16:47; Start 06/25/19 at 16:00 Warfarin Sodium (Coumadin) 5 mg MoTuWeThFrSa@1600 PO Last administered on 06/26/19at 17:41; Start 06/23/19 at 22:30 Insulin Glargine (Lantus Syringe) 30 unit QHS SQ Last administered on 06/26/19at 21:52; Start 06/23/19 at 21:00 Insulin Human Lispro (HumaLOG) 0-9 UNITS TIDWMEALS SQ Last administered on 06/25/19at 12:16; Start 06/24/19 at 08:00 Dextrose (Dextrose 50%-Water Syringe) 12.5 gm PRN Q15MIN PRN IV SEE COMMENTS; Start 06/23/19 at 18:00 Acetaminophen/ Codeine Phosphate (Tylenol #3) 1 tab PRN Q6HRS PRN PO MILD PAIN 1-3; Start 06/23/19 at 18:00; Stop 06/26/19 at 08:53; Status DC Ondansetron HCl (Zofran) 4 mg PRN Q6HRS PRN IVP NAUSEA/VOMITING; Start 06/23/19 at 18:00 Warfarin Sodium (Coumadin Per Physician) 1 each PRN DAILY PRN MC SEE COMMENTS Last administered on 06/26/19at 14:48; Start 06/23/19 at 18:00 Acetaminophen/ Hydrocodone Bitart (Lortab 10/325) 1 tab PRN Q6HRS PRN PO MODERATE TO SEVERE PAIN Last administered on 06/27/19at 02:30; Start 06/23/19 at 18:15 Gabapentin (Neurontin) 100 mg BID PO Last administered on 06/27/19at 07:57; Start 06/23/19 at 21:00 Ondansetron HCl (Zofran) 4 mg PRN Q8HRS PRN IV NAUSEA/VOMITING; Start 06/23/19 at 18:30; Stop 06/24/19 at 18:29; Status Cancel Fentanyl Citrate (Fentanyl 2ml Vial) 50 mcg PRN Q1HR PRN IV PAIN; Start 06/23 at 18:30; Stop 06/24/19 at 18:29; Status DC Piperacillin Sod/ Tazobactam Sod (Zosyn Per Pharmacy) 1 each PRN DAILY PRN MC SEE COMMENTS; Start 06/24/19 at 17:00; Stop 06/26/19 at 16:29; Status DC Piperacillin Sod/ Tazobactam Sod 2.25 gm/Sodium Chloride 50 ml @ 100 mls/hr Q8HRS IV Last administered on 06/26/19at 06:04; Start 06/24/19 at 17:00; Stop 06/26/19 at 16:29; Status DC Vancomycin HCl (Vanco Per Pharmacy) 1 each PRN DAILY PRN MC SEE COMMENTS Last administered on 06/26/19at 13:24; Start 06/25/19 at 09:15 Lactobacillus Rhamnosus (Culturelle) 1 cap BID PO Last administered on 06/27/19at 07:57; Start 06/25/19 at 21:00 Vancomycin HCl (Vancomycin Random Level) 1 each 1X ONCE MC ; Start 06/26/19 at 06:00; Stop 06/26/19 at 06:01; Status DC Iohexol (Omnipaque 240 Mg/ml) 50 ml 1X ONCE PO Last administered on 06/25/19at 18:36; Start 06/25/19 at 18:15; Stop 06/25/19 at 18:16; Status DC Info (CONTRAST GIVEN -- Rx MONITORING) 1 each PRN DAILY PRN MC SEE COMMENTS Last administered on 06/25/19at 19:09; Start 06/25/19 at 18:15; Stop 06/27/19 at 18:14 Iohexol (Omnipaque 240 Mg/ml) 50 ml STK-MED ONCE .ROUTE ; Start 06/26/19 at 00:59; Stop 06/26/19 at 00:59; Status DC Budesonide (Pulmicort) 0.5 mg RTBID NEB Last administered on 06/27/19at 07:50; Start 06/26/19 at 11:00 Albuterol Sulfate (Ventolin Neb Soln) 2.5 mg PRN Q4HRS PRN NEB SHORTNESS OF BREATH Last administered on 06/26/19at 19:40; Start 06/26/19 at 10:15 Guaifenesin (Robitussin Dm) 10 ml PRN Q6HRS PRN PO COUGH Last administered on 06/27/19at 07:56; Start 06/26/19 at 10:15 Vancomycin HCl 500 mg/Sodium Chloride 100 ml @ 100 mls/hr QMWF IV Last administered on 06/26/19at 17:41; Start 06/26/19 at 16:00 Sodium Chloride 1,000 ml @ 1,000 mls/hr Q1H PRN IV hypotension; Start 06/26/19 at 13:19; Stop 06/26/19 at 19:18; Status DC Acetaminophen (Tylenol) 500 mg 1X PRN PRN PO MILD PAIN / TEMP; Start 06/26/19 at 13:30; Stop 06/27/19 at 13:29 Diphenhydramine HCl (Benadryl) 25 mg 1X PRN PRN IV ITCHING; Start 06/26/19 at 13:30; Stop 06/27/19 at 13:29 Diphenhydramine HCl (Benadryl) 25 mg 1X PRN PRN IV ITCHING; Start 06/26/19 at 13:30; Stop 06/27/19 at 13:29 Sodium Chloride 1,000 ml @ 400 mls/hr Q2H30M PRN IV PATENCY; Start 06/26/19 at 13:19; Stop 06/27/19 at 01:18; Status DC Info (PHARMACY MONITORING -- do not chart) 1 each PRN DAILY PRN MC SEE COMMENTS; Start 06/26/19 at 13:30 Lidocaine HCl (Xylocaine-Mpf 1% 2ml Vial) 2 ml STK-MED ONCE .ROUTE ; Start 06/26/19 at 13:58; Stop 06/26/19 at 13:58; Status DC Amoxicillin/ Clavulanate Potassium (Augmentin 500/ 125mg) 1 tab BID PO ; Start 06/26/19 at 21:00; Stop 06/26/19 at 16:31; Status DC Amoxicillin/ Clavulanate Potassium (Augmentin 500/ 125mg) 1 tab DAILY PO Last administered on 06/27/19at 07:57; Start 06/26/19 at 16:30 Active Scripts Active Gabapentin 300 Mg Capsule 300 Mg PO TID MDD 1 Humalog (Insulin Lispro) 100 Unit/1 Ml Insuln.pen 15 Units SQ TIDWMEALS MDD 1 30 Days Lantus Solostar (Insulin Glargine,Hum.rec.anlog) 100 Unit/1 Ml Insuln.pen 30 Units SQ HS MDD 1 30 Days Amlodipine Besylate 10 Mg Tablet 10 Mg PO DAILY MDD 1 Reported Warfarin Sodium 5 Mg Tablet 1.5 Tab PO QSU Warfarin Sodium 5 Mg Tablet 1 Tab PO [id number] Gabapentin (Gabapentin) 300 Mg Capsule 2 Cap PO PRN DAILY PRN Vitals/I & O Vital Sign - Last 24 Hours 06/26/19 06/26/19 06/26/19 06/26/19 09:34 11:00 13:17 17:42 Temp 97.9 97.9 Pulse 91 104 Resp 16 18 B/P (MAP) 128/65 (86) 148/79 Pulse Ox 95 95 O2 Delivery Room Air Room Air Room Air 06/26/19 06/26/19 06/26/19 06/26/19 17:47 18:37 19:00 19:41 Temp 99.9 99.9 Pulse 97 Resp 18 18 18 B/P (MAP) 125/67 (86) Pulse Ox 96 95 97 O2 Delivery Room Air Room Air Room Air Room Air 06/26/19 06/26/19 06/27/19 06/27/19 20:00 23:00 02:30 03:00 Temp 99.5 101.0 99.5 101.0 Pulse 99 85 Resp 18 18 B/P (MAP) 126/61 (82) 112/72 (85) Pulse Ox 96 96 94 O2 Delivery Room Air Room Air Room Air Room Air 06/27/19 06/27/19 06/27/19 06/27/19 03:30 03:57 07:51 08:02 Temp 98.9 98.9 Pulse 69 B/P (MAP) 122/62 Pulse Ox 94 97 O2 Delivery Room Air Room Air Intake and Output 06/26/19 06/26/19 06/27/19 15:00 23:00 07:00 Intake Total 600 ml 400 ml 50 ml Output Total 0 ml Balance 600 ml 400 ml 50 ml TIM RIOS MD Jun 27, 2019 08:35
[2019-06-27 11:00] VITALS: BP 112/62
--- NOTE | 2019-06-27 11:33 | PDOC ---
Infectious Disease Note Subjective Subjective Feeling better since admission but not at baseline 101.0 fever this morning Less cough + diarrhea, no more than usual Denies CP/SOA/chills/N/V/ ROS ROS per HPI Vital Sign Vital Signs Vital Signs Date Time Temp Pulse Resp B/P (MAP) Pulse Ox O2 Delivery O2 Flow Rate FiO2 06/27/19 08:02 69 122/62 06/27/19 08:00 Room Air 06/27/19 07:51 97 06/27/19 07:00 97.6 18 97.6 Physical Exam PHYSICAL EXAM GENERAL: Propped up in bed, alert, no apparent distress. HEENT: Pupils equally round. Oropharynx pink and moist. NECK: Supple. LUNGS: Clear to auscultation. HEART: S1, S2. ABDOMEN: Soft and nontender with bowel sounds present. EXTREMITIES: No gross edema or cyanosis. RUE -- AV fistula unremarkable. SKIN: Warm to touch. No signs of rash. NEUROLOGIC: Alert and answering questions appropriately. Labs Lab Laboratory Tests Test 06/26/19 17:40 06/26/19 21:06 06/27/19 03:29 06/27/19 07:46 Glucose (Fingerstick) 102 mg/dL (70-99) 244 mg/dL (70-99) 305 mg/dL (70-99) Prothrombin Time 22.4 SEC (11.7-14.0) Prothromb Time International Ratio 2.0 (0.8-1.1) Micro Microbiology 06/23/19 Blood Culture - Preliminary, Resulted NO GROWTH AFTER 3 DAY Objective Assessment Fever Cough - influenza neg ESRD on HD via AV fistula Ulcerative colitis DM h/o DVT on warfarin therapy Plan Plan of Care vanc and Augmentin Random trough 15.3 BC neg so far Sputum C&S pending Supportive care Had fever but did not feel it. States ok. Will D/c vanc and R/o drug fever and begin Doxy to cover atypicals - clinically looks well Labs in am Attending Co-Sign Attending Co-Sign The patient was seen and interviewed as well as examined at the bedside. The chart was reviewed. The case was discussed. Agree with the plan of care. BRIAN ARROYO APRN Jun 27, 2019 11:33 LEV CORONADO MD Jun 27, 2019 15:36
[2019-06-27] MEDS: VANCOMYCIN PER PHARMACY MC PRN (13:00)
[2019-06-27] MEDS: DULoxetine HCL 20 MG CAPSULE.DR PO SCH (13:47)
[2019-06-27 15:00] VITALS: BP 140/75
[2019-06-27] MEDS: WARFARIN 5 MG TABLET. PO SCH (16:01)
[2019-06-27 16:14] LABS: INFLUENZA A PATIENT NEGATIVE (NEGATIVE); INFLUENZA B PATIENT NEGATIVE (NEGATIVE)
--- NOTE | 2019-06-27 16:51 | NUR ---
Flu AB negative, droplet isolation dc'd. Patient verb. understanding.
[2019-06-27 19:00] VITALS: BP 123/60
[2019-06-27] MEDS: DOXYCYCLINE HYCLATE 100 MG TABLET PO SCH (20:48)
[2019-06-27] MEDS: INSULIN GLARGINE SYRINGE. SQ SCH (20:52)
[2019-06-27 23:00] VITALS: BP 121/72
[2019-06-28 03:00] VITALS: BP 127/70
[2019-06-28 07:15] VITALS: BP 132/64
[2019-06-28] MEDS: BUDESONIDE 0.5 MG/2 ML NEBU. NEB SCH (07:33)
[2019-06-28] MEDS: INSULIN LISPRO 300 UNITS/3 ML VIAL. SQ SCH ×4 (08:00→11:29)
--- NOTE | 2019-06-28 08:09 | PDOC ---
PROGRESS NOTES Chief Complaint Chief Complaint Sepsis - unknown source, high fever, negative initial influenza ESRD on HD MWF Anuric Acute exacerbation of COPD Generalized weakness Elevated proclacitonin, no source yet Bilateral leg pain Ulcerative colitis Diabetes mellitus Peripheral neuropathy Hypertension History of DVT, on warfarin therapy History of colorectal cancer H/o hepatitis C Osteoarthritis H/o Proteus mirabilis UTI resistant to nitrofurantoin and tetracycline History of Present Illness History of Present Illness Fever pattern improving but Procalcitonin was elevated with no obvious source Legs hurt, restarted gabapentin He is anuric - no urine sample He has a RT AV graft and no external catheters or skin rash He has chronic diarrhea bec of hx colon resection and anastomosis. BC prelim no growth CT scan negative for chest pathology. 06/27: Fever 101F overnight. He feels slightly better. still coughing and aching. Sputum with yeast, no bacteria. K 6.5 prior to dialysis today. He is ready to go home. PLAN; ID over the weekend okayed vanc zosyn - [facility] vanc - HD pt [place] CT was negative REPEAT FLU SWAB HD per renal Dw him Try nebs for his cough and robitussin Vitals Vitals Vital Signs Date Time Temp Pulse Resp B/P (MAP) Pulse Ox O2 Delivery O2 Flow Rate FiO2 06/28/19 07:33 97 Room Air 06/28/19 07:15 98.1 63 20 132/64 (86) 98.1 Physical Exam Physical Exam GENERAL: Propped up in bed, alert, no apparent distress. HEENT: Pupils equally round. Oropharynx pink and moist. NECK: Supple. LUNGS: Clear to auscultation. HEART: S1, S2. ABDOMEN: Soft and nontender with bowel sounds present. EXTREMITIES: No gross edema or cyanosis. RUE -- AV fistula unremarkable. SKIN: Warm to touch. No signs of rash. NEUROLOGIC: Alert and answering questions appropriately. General: Alert, Oriented X3, Cooperative, No acute distress Lungs: Clear Abdomen: Normal bowel sounds, Soft, No tenderness, No hepatosplenomegaly, No masses Extremities: No clubbing, No cyanosis, No edema, Normal pulses, No tenderness/swelling Skin: No rashes, No breakdown, No significant lesion, Other (dry skin) Labs LABS Laboratory Tests Test 06/27/19 11:33 06/27/19 13:15 06/27/19 17:15 06/27/19 20:47 Glucose (Fingerstick) 201 mg/dL (70-99) 210 mg/dL (70-99) 141 mg/dL (70-99) Influenza Type A Antigen Negative (NEGATIVE) Influenza Type B Antigen Negative (NEGATIVE) Test 06/28/19 07:30 Glucose (Fingerstick) 185 mg/dL (70-99) Assessment and Plan Assessmemt and Plan Problems Medical Problems: (1) Fever Status: Acute Comment Review of Relevant I have reviewed the following items keron (where applicable) has been applied. Labs Laboratory Tests Test 06/26/19 11:12 06/26/19 17:40 06/26/19 21:06 06/27/19 03:29 Glucose (Fingerstick) 178 mg/dL (70-99) 102 mg/dL (70-99) 244 mg/dL (70-99) Prothrombin Time 22.4 SEC (11.7-14.0) Prothromb Time International Ratio 2.0 (0.8-1.1) Test 06/27/19 07:46 06/27/19 11:33 06/27/19 13:15 06/27/19 17:15 Glucose (Fingerstick) 305 mg/dL (70-99) 201 mg/dL (70-99) 210 mg/dL (70-99) Influenza Type A Antigen Negative (NEGATIVE) Influenza Type B Antigen Negative (NEGATIVE) Test 06/27/19 20:47 06/28/19 07:30 Glucose (Fingerstick) 141 mg/dL (70-99) 185 mg/dL (70-99) Laboratory Tests Test 06/27/19 11:33 06/27/19 13:15 06/27/19 17:15 06/27/19 20:47 Glucose (Fingerstick) 201 mg/dL (70-99) 210 mg/dL (70-99) 141 mg/dL (70-99) Influenza Type A Antigen Negative (NEGATIVE) Influenza Type B Antigen Negative (NEGATIVE) Test 06/28/19 07:30 Glucose (Fingerstick) 185 mg/dL (70-99) Microbiology 06/25/19 - Final, Resulted 06/25/19 - Final, Resulted 06/25/19 - Final, Resulted 06/25/19 - Preliminary, Resulted 06/25/19 - Preliminary, Resulted 06/25/19 - Preliminary, Resulted 06/25/19 Gram Stain Evaluation - Final, Resulted 06/25/19 Sputum Culture, Resulted Pending 06/23/19 Blood Culture - Preliminary, Resulted NO GROWTH AFTER 4 DAYS Medications Current Medications Ibuprofen (Motrin) 600 mg 1X ONCE PO Last administered on 06/23/19at 16:56; Start 06/23/19 at 16:30; Stop 06/23/19 at 16:31; Status DC Acetaminophen/ Hydrocodone Bitart (Lortab 5/325) 2 tab 1X ONCE PO Last administered on 06/23/19at 16:56; Start 06/23/19 at 16:30; Stop 06/23/19 at 16:31; Status DC Piperacillin Sod/ Tazobactam Sod 4.5 gm/Sodium Chloride 100 ml @ 200 mls/hr 1X ONCE IV Last administered on 06/23/19at 16:57; Start 06/23/19 at 16:30; Stop 06/23/19 at 16:59; Status DC Vancomycin HCl (Vanco Per Pharmacy) 1 each 1X ONCE MC ; Start 06/23/19 at 16: 30; Stop 06/23/19 at 16:31; Status Cancel Morphine Sulfate (Morphine Sulfate) 4 mg PRN Q15MIN PRN IV/SQ PAIN GREATER THAN 3/10; Start 06/23/19 at 16:30; Stop 06/24/19 at 16:29; Status DC Vancomycin HCl 1.75 gm/Sodium Chloride 500 ml @ 250 mls/hr 1X ONCE IV Last administered on 06/23/19at 18:21; Start 06/23/19 at 16:30; Stop 06/23/19 at 18:29; Status DC Amlodipine Besylate (Norvasc) 10 mg DAILY PO Last administered on 06/27/19at 08:02; Start 06/24/19 at 09:00 Ferrous Sulfate (Feosol) 325 mg MoWeFr@0900 PO Last administered on 06/26/19at 11:51; Start 06/26/19 at 09:00 Furosemide (Lasix) 80 mg DAILY PO ; Start 06/24/19 at 09:00; Stop 06/26/19 at 08:53; Status DC Gabapentin (Neurontin) 300 mg TID PO ; Start 06/23/19 at 21:00; Stop 06/23/19 at 18:08; Status DC Insulin Human Lispro (HumaLOG) 15 units TIDWMEALS SQ Last administered on 06/27/19 17:31; Start 06/24/19 at 08:00 Warfarin Sodium (Coumadin) 7.5 mg Marinelli@1600 PO Last administered on 06/25/19 16:47; Start 06/25/19 at 16:00 Warfarin Sodium (Coumadin) 5 mg MoTuWeThFrSa@1600 PO Last administered on 06/27/19 16:01; Start 06/23/19 at 22:30 Insulin Glargine (Lantus Syringe) 30 unit QHS SQ Last administered on 06/27/19 20:52; Start 06/23/19 at 21:00 Insulin Human Lispro (HumaLOG) 0-9 UNITS TIDWMEALS SQ Last administered on 06/27/19 17:32; Start 06/24/19 at 08:00 Dextrose (Dextrose 50%-Water Syringe) 12.5 gm PRN Q15MIN PRN IV SEE COMMENTS; Start 06/23/19 at 18:00 Acetaminophen/ Codeine Phosphate (Tylenol #3) 1 tab PRN Q6HRS PRN PO MILD PAIN 1-3; Start 06/23/19 at 18:00; Stop 06/26/19 at 08:53; Status DC Ondansetron HCl (Zofran) 4 mg PRN Q6HRS PRN IVP NAUSEA/VOMITING; Start 06/23/19 at 18:00 Warfarin Sodium (Coumadin Per Physician) 1 each PRN DAILY PRN MC SEE COMMENTS Last administered on 06/27/19 12:57; Start 06/23/19 at 18:00 Acetaminophen/ Hydrocodone Bitart (Lortab 10/325) 1 tab PRN Q6HRS PRN PO MODERATE TO SEVERE PAIN Last administered on 06/27/19 20:48; Start 06/23/19 at 18:15 Gabapentin (Neurontin) 100 mg BID PO Last administered on 06/27/19 20:48; Start 06/23/19 at 21:00 Ondansetron HCl (Zofran) 4 mg PRN Q8HRS PRN IV NAUSEA/VOMITING; Start 06/23/19 at 18:30; Stop 06/24/19 at 18:29; Status Cancel Fentanyl Citrate (Fentanyl 2ml Vial) 50 mcg PRN Q1HR PRN IV PAIN; Start 06/23/19 at 18:30; Stop 06/24/19 at 18:29; Status DC Piperacillin Sod/ Tazobactam Sod (Zosyn Per Pharmacy) 1 each PRN DAILY PRN MC SEE COMMENTS; Start 06/24/19 at 17:00; Stop 06/26/19 at 16:29; Status DC Piperacillin Sod/ Tazobactam Sod 2.25 gm/Sodium Chloride 50 ml @ 100 mls/hr Q8HRS IV Last administered on 06/26/19at 06:04; Start 06/24/19 at 17:00; Stop 06/26/19 at 16:29; Status DC Vancomycin HCl (Vanco Per Pharmacy) 1 each PRN DAILY PRN MC SEE COMMENTS Last administered on 06/27/19at 13:00; Start 06/25/19 at 09:15; Stop 06/27/19 at 15:35; Status DC Lactobacillus Rhamnosus (Culturelle) 1 cap BID PO Last administered on 06/27/19at 20:48; Start 06/25/19 at 21:00 Vancomycin HCl (Vancomycin Random Level) 1 each 1X ONCE MC ; Start 06/26/19 at 06:00; Stop 06/26/19 at 06:01; Status DC Iohexol (Omnipaque 240 Mg/ml) 50 ml 1X ONCE PO Last administered on 06/25/19at 18:36; Start 06/25/19 at 18:15; Stop 06/25/19 at 18:16; Status DC Info (CONTRAST GIVEN -- Rx MONITORING) 1 each PRN DAILY PRN MC SEE COMMENTS Last administered on 06/25/19at 19:09; Start 06/25/19 at 18:15; Stop 06/27/19 at 18:14; Status DC Iohexol (Omnipaque 240 Mg/ml) 50 ml STK-MED ONCE .ROUTE ; Start 06/26/19 at 00:59; Stop 06/26/19 at 00:59; Status DC Budesonide (Pulmicort) 0.5 mg RTBID NEB Last administered on 06/28/19at 07:33; Start 06/26/19 at 11:00 Albuterol Sulfate (Ventolin Neb Soln) 2.5 mg PRN Q4HRS PRN NEB SHORTNESS OF BREATH Last administered on 06/26/19at 19:40; Start 06/26/19 at 10:15 Guaifenesin (Robitussin Dm) 10 ml PRN Q6HRS PRN PO COUGH Last administered on 06/27/19at 13:48; Start 06/26/19 at 10:15 Vancomycin HCl 500 mg/Sodium Chloride 100 ml @ 100 mls/hr QMWF IV Last adm inistered on 06/26/19at 17:41; Start 06/26/19 at 16:00; Stop 06/27/19 at 15:35; Status DC Sodium Chloride 1,000 ml @ 1,000 mls/hr Q1H PRN IV hypotension; Start 06/26/19 at 13:19; Stop 06/26/19 at 19:18; Status DC Acetaminophen (Tylenol) 500 mg 1X PRN PRN PO MILD PAIN / TEMP; Start 06/26/19 at 13:30; Stop 06/27/19 at 13:29; Status DC Diphenhydramine HCl (Benadryl) 25 mg 1X PRN PRN IV ITCHING; Start 06/26/19 at 13:30; Stop 06/27/19 at 13:29; Status DC Diphenhydramine HCl (Benadryl) 25 mg 1X PRN PRN IV ITCHING; Start 06/26/19 at 13:30; Stop 06/27/19 at 13:29; Status DC Sodium Chloride 1,000 ml @ 400 mls/hr Q2H30M PRN IV PATENCY; Start 06/26/19 at 13:19; Stop 06/27/19 at 01:18; Status DC Info (PHARMACY MONITORING -- do not chart) 1 each PRN DAILY PRN MC SEE COMMENTS; Start 06/26/19 at 13:30 Lidocaine HCl (Xylocaine-Mpf 1% 2ml Vial) 2 ml STK-MED ONCE .ROUTE ; Start 06/26/19 at 13:58; Stop 06/26/19 at 13:58; Status DC Amoxicillin/ Clavulanate Potassium (Augmentin 500/ 125mg) 1 tab BID PO ; Start 06/26/19 at 21:00; Stop 06/26/19 at 16:31; Status DC Amoxicillin/ Clavulanate Potassium (Augmentin 500/ 125mg) 1 tab DAILY PO Last administered on 06/27/19at 07:57; Start 06/26/19 at 16:30 Lidocaine HCl (Xylocaine-Mpf 1% 2ml Vial) 2 ml STK-MED ONCE .ROUTE ; Start 06/26/19 at 14:00; Stop 06/27/19 at 08:40; Status DC Duloxetine HCl (Cymbalta) 20 mg DAILY PO Last administered on 06/27/19at 13:47; Start 06/27/19 at 13:30 Doxycycline Hyclate (Vibra-Tab) 100 mg BID PO Last administered on 06/27/19at 20:48; Start 06/27/19 at 21:00 Active Scripts Active Gabapentin 300 Mg Capsule 300 Mg PO TID MDD 1 Humalog (Insulin Lispro) 100 Unit/1 Ml Insuln.pen 15 Units SQ TIDWMEALS MDD 1 30 Days Lantus Solostar (Insulin Glargine,Hum.rec.anlog) 100 Unit/1 Ml Insuln.pen 30 Units SQ HS MDD 1 30 Days Amlodipine Besylate 10 Mg Tablet 10 Mg PO DAILY MDD 1 Reported Warfarin Sodium 5 Mg Tablet 1.5 Tab PO QSU Warfarin Sodium 5 Mg Tablet 1 Tab PO [id number] Gabapentin (Gabapentin) 300 Mg Capsule 2 Cap PO PRN DAILY PRN Vitals/I & O Vital Sign - Last 24 Hours 06/27/19 06/27/19 06/27/19 06/27/19 11:00 13:48 14:48 15:00 Temp 99.0 98.3 99.0 98.3 Pulse 80 89 Resp 18 18 18 18 B/P (MAP) 112/62 (79) 140/75 (96) Pulse Ox 96 96 O2 Delivery Room Air Room Air Room Air Room Air 06/27/19 06/27/19 06/27/19 06/27/19 19:00 19:10 19:39 20:48 Temp 97.8 97.8 Pulse 80 Resp 18 16 B/P (MAP) 123/60 (81) Pulse Ox 95 97 97 O2 Delivery Room Air Room Air Room Air Room Air 06/27/19 06/27/19 06/28/19 06/28/19 21:45 23:00 03:00 07:15 Temp 98.5 98.1 98.1 98.5 98.1 98.1 Pulse 72 65 63 Resp 17 18 18 20 B/P (MAP) 121/72 (88) 127/70 (89) 132/64 (86) Pulse Ox 97 96 96 96 O2 Delivery Room Air Room Air Room Air Room Air 06/28/19 07:33 Pulse Ox 97 O2 Delivery Room Air Intake and Output 06/27/19 06/27/19 06/28/19 15:00 23:00 07:00 Intake Total 300 ml 360 ml Balance 300 ml 360 ml TIM RIOS MD Jun 28, 2019 08:09
[2019-06-28] MEDS: GABAPENTIN 100 MG CAPSULE. PO SCH (08:51)
[2019-06-28] MEDS: DULoxetine HCL 20 MG CAPSULE.DR PO SCH (08:51)
[2019-06-28] MEDS: DOXYCYCLINE HYCLATE 100 MG TABLET PO SCH (08:51)
[2019-06-28] MEDS: AMOXICILLIN/K CLAV 500/125MG TABLET. PO SCH (08:51)
[2019-06-28] MEDS: LACTOBACILLUS RHAMNOSUS GG 1 CAPSULE. PO SCH (08:52)
[2019-06-28] MEDS: FERROUS SULFATE 325 MG TABLET. PO SCH (08:52)
[2019-06-28] MEDS: amLODIPine BESYLATE 10 MG TABLET PO SCH (08:52)
[2019-06-28] MEDS ORDERED: IV NORMAL SALINE 1000ML BAG 1,000 ML IV PRN ×2 (09:13)
[2019-06-28] MEDS ORDERED: ACETAMINOPHEN 500 MG TABLET PO PRN (09:15)
[2019-06-28] MEDS ORDERED: DIALYSIS PATIENT. MC PRN (09:15)
[2019-06-28] MEDS ORDERED: diphenhydrAMINE 50 MG/ML VIAL IV PRN ×2 (09:15)
[2019-06-28 09:17] LABS: BASO % 1 % (0-3); EOS # 0.1 x10^3/uL (0.0-0.7); EOS % 3 % (0-3); HEMATOCRIT 31.3 % (39.0-53.0); HEMOGLOBIN 10.2 g/dL (13.0-17.5); LYMPH # 0.5 x10^3/uL (1.0-4.8); LYMPH % 14 % (24-48); MEAN CORPUSCULAR HEMOGLOBIN 28 pg (25-35); MEAN CORPUSCULAR HGB CONC 33 g/dL (31-37); MEAN CORPUSCULAR VOLUME 87 fL (79-100); MONO # 0.9 x10^3/uL (0.0-1.1); MONO % 26 % (0-9); NEUT % 56 % (31-73); PLATELET COUNT 108 x10^3/uL (140-400); RED BLOOD COUNT 3.62 x10^6/uL (4.30-5.70); RED CELL DISTRIBUTION WIDTH 15.3 % (11.5-14.5); WHITE BLOOD COUNT 3.5 x10^3/uL (4.0-11.0)
[2019-06-28 09:22] LABS: ALBUMIN 2.3 g/dL (3.4-5.0); CALCIUM 8.8 mg/dL (8.5-10.1); CREATININE 8.8 mg/dL (0.7-1.3); GFR 7.4; PHOSPHORUS 2.4 mg/dL (2.6-4.7)
[2019-06-28 09:25] LABS: POTASSIUM 6.5 mmol/L (3.5-5.1)
[2019-06-28 10:07] LABS: % BANDS 8 % (0-9); % BASOS 2 % (0-3); % EOS 3 % (0-5); % LYMPHS 22 % (24-48); % MONOS 14 % (0-10); % SEGS 51 % (35-66)
[2019-06-28 10:08] LABS: ANISOCYTOSIS SLIGHT; PLT ESTIMATE DECREASED (ADEQUATE)
[2019-06-28] MEDS ORDERED: LIDOCAINE 1% PF 2 ML VIAL. ONE (10:37)
[2019-06-28] MEDS ORDERED: LIDOCAINE 1% PF 2 ML VIAL. INJ STA (10:37)
--- NOTE | 2019-06-28 11:21 | PDOC ---
SUBJECTIVE ROS He refused dialysis this am , was told about his high K and risks Seen on HD , tolerating well OBJECTIVE Vital Signs Vital Signs Date Time Temp Pulse Resp B/P (MAP) Pulse Ox O2 Delivery O2 Flow Rate FiO2 06/28/19 08:52 63 132/64 06/28/19 07:33 97 Room Air 06/28/19 07:15 98.1 20 98.1 I & 0 Intake and Output 06/28/19 07:00 Intake Total 660 ml Balance 660 ml Intake Oral 660 ml PHYSICAL EXAM Physical Exam GENERAL: , no apparent distress. HEENT: Oropharynx pink and moist. NECK: Supple. LUNGS: Clear to auscultation. HEART: S1, S2. ABDOMEN: Soft and nontender EXTREMITIES: No gross edema or cyanosis. RUE -- AV fistula unremarkable. SKIN: No signs of rash. NEUROLOGIC: Alert x O DIAGNOSIS/ASSESSMENT Assessment & Plan ESRD on HD MWF- Seen on HD, tolerating well, continue as ordered , DALTON Marin Hyperkalemia - Dialysis as ordered Acute exacerbation of COPD- stable Generalized weakness Diabetes mellitus- Primary managing Hypertension- Stable History of DVT, on warfarin therapy History of colorectal cancer H/o hepatitis C H/o Proteus mirabilis UTI COMMENT/RELEVANT DATA Meds Current Medications Medications (Trade) Dose Ordered Sig/Raymon Start Time Stop Time Status Last Admin Dose Admin Acetaminophen (Tylenol) 500 mg 1X PRN PRN 06/28/19 09:15 06/29/19 09:14 Acetaminophen/ Codeine Phosphate (Tylenol #3) 1 tab PRN Q6HRS PRN 06/23/19 18:00 06/26/19 08:53 DC Acetaminophen/ Hydrocodone Bitart (Lortab 10/325) 1 tab PRN Q6HRS PRN 06/23/19 18:15 06/27/19 20:48 1 TAB Acetaminophen/ Hydrocodone Bitart (Lortab 5/325) 2 tab 1X ONCE 06/23/19 16:30 06/23/19 16:31 DC 06/23/19 16:56 2 TAB Albuterol Sulfate (Ventolin Neb Soln) 2.5 mg PRN Q4HRS PRN 06/26/19 10:15 06/26/19 19:40 2.5 MG Amlodipine Besylate (Norvasc) 10 mg DAILY 06/24/19 09:00 06/28/19 08:52 10 MG Amoxicillin/ Clavulanate Potassium (Augmentin 500/ 125mg) 1 tab DAILY 06/26/19 16:30 06/28/19 08:51 1 TAB Budesonide (Pulmicort) 0.5 mg RTBID 06/26/19 11:00 06/28/19 07:33 0.5 MG Dextrose (Dextrose 50%-Water Syringe) 12.5 gm PRN Q15MIN PRN 06/23/19 18:00 Diphenhydramine HCl (Benadryl) 25 mg 1X PRN PRN 06/28/19 09:15 06/29/19 09:14 Doxycycline Hyclate (Vibra-Tab) 100 mg BID 06/27/19 21:00 06/28/19 08:51 100 MG Duloxetine HCl (Cymbalta) 20 mg DAILY 06/27/19 13:30 06/28/19 08:51 20 MG Fentanyl Citrate (Fentanyl 2ml Vial) 50 mcg PRN Q1HR PRN 06/23/19 18:30 06/24/19 18:29 DC Ferrous Sulfate (Feosol) 325 mg MoWeFr@0900 06/26/19 09:00 06/28/19 08:52 325 MG Furosemide (Lasix) 80 mg DAILY 06/24/19 09:00 06/26/19 08:53 DC Gabapentin (Neurontin) 100 mg BID 06/23/19 21:00 06/28/19 08:51 100 MG Guaifenesin (Robitussin Dm) 10 ml PRN Q6HRS PRN 06/26/19 10:15 06/27/19 13:48 10 ML Ibuprofen (Motrin) 600 mg 1X ONCE 06/23/19 16:30 06/23/19 16:31 DC 06/23/19 16:56 600 MG Info (CONTRAST GIVEN -- Rx MONITORING) 1 each PRN DAILY PRN 06/25/19 18:15 06/27/19 18:14 DC 06/25/19 19:09 1 EACH Info (PHARMACY MONITORING -- do not chart) 1 each PRN DAILY PRN 06/28/19 09:15 Insulin Glargine (Lantus Syringe) 30 unit QHS 06/23/19 21:00 06/27/19 20:52 30 UNIT Insulin Human Lispro (HumaLOG) 0-9 UNITS TIDWMEALS 06/24/19 08:00 06/27/19 17:32 5 UNITS Iohexol (Omnipaque 240 Mg/ml) 50 ml STK-MED ONCE 06/26/19 00:59 06/26/19 00:59 DC Lactobacillus Rhamnosus (Culturelle) 1 cap BID 06/25/19 21:00 06/28/19 08:52 1 CAP Lidocaine HCl (Xylocaine-Mpf 1% 2ml Vial) 0.5 ml 1X STAT 06/28/19 10:37 06/28/19 10:42 DC 06/28/19 10:44 0.5 ML Morphine Sulfate (Morphine Sulfate) 4 mg PRN Q15MIN PRN 06/23/19 16:30 06/24/19 16:29 DC Ondansetron HCl (Zofran) 4 mg PRN Q8HRS PRN 06/23/19 18:30 06/24/19 18:29 Cancel Piperacillin Sod/ Tazobactam Sod (Zosyn Per Pharmacy) 1 each PRN DAILY PRN 06/24/19 17:00 06/26/19 16:29 DC Piperacillin Sod/ Tazobactam Sod 2.25 gm/Sodium Chloride 50 ml @ 100 mls/hr Q8HRS 06/24/19 17:00 06/26/19 16:29 DC 06/26/19 06:04 100 MLS/HR Piperacillin Sod/ Tazobactam Sod 4.5 gm/Sodium Chloride 100 ml @ 200 mls/hr 1X ONCE 06/23/19 16:30 06/23/19 16:59 DC 06/23/19 16:57 200 MLS/HR Sodium Chloride 1,000 ml @ 400 mls/hr Q2H30M PRN 06/28/19 09:13 06/28/19 21:12 Vancomycin HCl (Vanco Per Pharmacy) 1 each PRN DAILY PRN 06/25/19 09:15 06/27/19 15:35 DC 06/27/19 13:00 1 EACH Vancomycin HCl (Vancomycin Random Level) 1 each 1X ONCE 06/26/19 06:00 06/26/19 06:01 DC 06/26/19 06:00 1 EACH Vancomycin HCl 1.75 gm/Sodium Chloride 500 ml @ 250 mls/hr 1X ONCE 06/23/19 16:30 06/23/19 18:29 DC 06/23/19 18:21 250 MLS/HR Vancomycin HCl 500 mg/Sodium Chloride 100 ml @ 100 mls/hr QMWF 06/26/19 16:00 06/27/19 15:35 DC 06/26/19 17:41 100 MLS/HR Warfarin Sodium (Coumadin Per Physician) 1 each PRN DAILY PRN 06/23/19 18:00 06/27/19 12:57 1 EACH Warfarin Sodium (Coumadin) 5 mg MoTuWeThFrSa@1600 06/23/19 22:30 06/27/19 16:01 5 MG Lab Laboratory Tests Test 06/27/19 11:33 06/27/19 13:15 06/27/19 17:15 06/27/19 20:47 Glucose (Fingerstick) 201 mg/dL (70-99) 210 mg/dL (70-99) 141 mg/dL (70-99) Influenza Type A Antigen Negative (NEGATIVE) Influenza Type B Antigen Negative (NEGATIVE) Test 06/28/19 07:30 06/28/19 08:50 Glucose (Fingerstick) 185 mg/dL (70-99) White Blood Count 3.5 x10^3/uL (4.0-11.0) Red Blood Count 3.62 x10^6/uL (4.30-5.70) Hemoglobin 10.2 g/dL (13.0-17.5) Hematocrit 31.3 % (39.0-53.0) Mean Corpuscular Volume 87 fL (79-100) Mean Corpuscular Hemoglobin 28 pg (25-35) Mean Corpuscular Hemoglobin Concent 33 g/dL (31-37) Red Cell Distribution Width 15.3 % (11.5-14.5) Platelet Count 108 x10^3/uL (140-400) Neutrophils (%) (Auto) 56 % (31-73) Lymphocytes (%) (Auto) 14 % (24-48) Monocytes (%) (Auto) 26 % (0-9) Eosinophils (%) (Auto) 3 % (0-3) Basophils (%) (Auto) 1 % (0-3) Neutrophils # (Auto) 2.0 x10^3/uL (1.8-7.7) Lymphocytes # (Auto) 0.5 x10^3/uL (1.0-4.8) Monocytes # (Auto) 0.9 x10^3/uL (0.0-1.1) Eosinophils # (Auto) 0.1 x10^3/uL (0.0-0.7) Basophils # (Auto) 0.0 x10^3/uL (0.0-0.2) Segmented Neutrophils % 51 % (35-66) Band Neutrophils % 8 % (0-9) Lymphocytes % 22 % (24-48) Monocytes % 14 % (0-10) Eosinophils % 3 % (0-5) Basophils % 2 % (0-3) Platelet Estimate Decreased (ADEQUATE) Anisocytosis Slight Sodium Level 141 mmol/L (136-145) Potassium Level 6.5 mmol/L (3.5-5.1) Chloride Level 106 mmol/L (98-107) Carbon Dioxide Level 27 mmol/L (21-32) Anion Gap 8 (6-14) Blood Urea Nitrogen 44 mg/dL (8-26) Creatinine 8.8 mg/dL (0.7-1.3) Estimated GFR (Cockcroft-Gault) 7.4 Glucose Level 210 mg/dL (70-99) Calcium Level 8.8 mg/dL (8.5-10.1) Phosphorus Level 2.4 mg/dL (2.6-4.7) Albumin 2.3 g/dL (3.4-5.0) Results All relevant outside records, renal labs, imaging studies, telemetry/EKG's were reviewed. NNAMDI TESFAYE MD Jun 28, 2019 11:21
--- NOTE | 2019-06-28 12:24 | PDOC ---
Infectious Disease Note Subjective Subjective Feelingsome better No further fever last 24 hours + cough Denies CP/SOA/chills/N/V ROS ROS per HPI Vital Sign Vital Signs Vital Signs Date Time Temp Pulse Resp B/P (MAP) Pulse Ox O2 Delivery O2 Flow Rate FiO2 06/28/19 08:52 63 132/64 06/28/19 07:33 97 Room Air 06/28/19 07:15 98.1 20 98.1 Physical Exam PHYSICAL EXAM GENERAL: Propped up in bed, alert, dialyzing HEENT: Pupils equally round. Oropharynx pink and moist. NECK: Supple. LUNGS: Clear to auscultation. HEART: S1, S2. ABDOMEN: Soft and nontender with bowel sounds present. EXTREMITIES: No gross edema or cyanosis. RUE -- AV fistula unremarkable. SKIN: Warm to touch. No signs of rash. NEUROLOGIC: Alert and answering questions appropriately. Labs Lab Laboratory Tests Test 06/27/19 13:15 06/27/19 17:15 06/27/19 20:47 06/28/19 07:30 Influenza Type A Antigen Negative (NEGATIVE) Influenza Type B Antigen Negative (NEGATIVE) Glucose (Fingerstick) 210 mg/dL (70-99) 141 mg/dL (70-99) 185 mg/dL (70-99) Test 06/28/19 08:50 White Blood Count 3.5 x10^3/uL (4.0-11.0) Red Blood Count 3.62 x10^6/uL (4.30-5.70) Hemoglobin 10.2 g/dL (13.0-17.5) Hematocrit 31.3 % (39.0-53.0) Mean Corpuscular Volume 87 fL (79-100) Mean Corpuscular Hemoglobin 28 pg (25-35) Mean Corpuscular Hemoglobin Concent 33 g/dL (31-37) Red Cell Distribution Width 15.3 % (11.5-14.5) Platelet Count 108 x10^3/uL (140-400) Neutrophils (%) (Auto) 56 % (31-73) Lymphocytes (%) (Auto) 14 % (24-48) Monocytes (%) (Auto) 26 % (0-9) Eosinophils (%) (Auto) 3 % (0-3) Basophils (%) (Auto) 1 % (0-3) Neutrophils # (Auto) 2.0 x10^3/uL (1.8-7.7) Lymphocytes # (Auto) 0.5 x10^3/uL (1.0-4.8) Monocytes # (Auto) 0.9 x10^3/uL (0.0-1.1) Eosinophils # (Auto) 0.1 x10^3/uL (0.0-0.7) Basophils # (Auto) 0.0 x10^3/uL (0.0-0.2) Segmented Neutrophils % 51 % (35-66) Band Neutrophils % 8 % (0-9) Lymphocytes % 22 % (24-48) Monocytes % 14 % (0-10) Eosinophils % 3 % (0-5) Basophils % 2 % (0-3) Platelet Estimate Decreased (ADEQUATE) Anisocytosis Slight Sodium Level 141 mmol/L (136-145) Potassium Level 6.5 mmol/L (3.5-5.1) Chloride Level 106 mmol/L (98-107) Carbon Dioxide Level 27 mmol/L (21-32) Anion Gap 8 (6-14) Blood Urea Nitrogen 44 mg/dL (8-26) Creatinine 8.8 mg/dL (0.7-1.3) Estimated GFR (Cockcroft-Gault) 7.4 Glucose Level 210 mg/dL (70-99) Calcium Level 8.8 mg/dL (8.5-10.1) Phosphorus Level 2.4 mg/dL (2.6-4.7) Albumin 2.3 g/dL (3.4-5.0) Micro Microbiology 06/23/19 Blood Culture - Preliminary, Resulted NO GROWTH AFTER 4 DAY SPUTUM CULT RES 1 Final Yeast isolated. SPUTUM CULT RES 2 Final Routine respiratory april Objective Assessment Leukopenia Fever - better Cough - influenza neg. sputum cx neg ESRD on HD via AV fistula Ulcerative colitis DM h/o DVT on warfarin therapy Plan Plan of Care Doxy (06/27) and Augmentin (06/26) Cultures neg Supportive care In chair dressed and eating Much better and ready to go home Attending Co-Sign Attending Co-Sign The patient was seen and interviewed as well as examined at the bedside. The chart was reviewed. The case was discussed. Agree with the plan of care. BRIAN ARROYO APRN Jun 28, 2019 12:23 LEV CORONADO MD Jun 28, 2019 15:56
[2019-06-28] MEDS ORDERED: AMOX1TAB10 PO (12:47)
[2019-06-28] MEDS ORDERED: DOXY100T PO (12:47)
--- NOTE | 2019-06-28 12:57 | PDOC3 ---
Discharge Summary Visit Information Date of Admission: Jun 23, 2019 Date of Discharge: Jun 28, 2019 Admitting Diagnosis: Fever Final Diagnosis Problems Medical Problems: (1) Fever Status: Acute Brief Hospital Course Allergies Allergies Coded Allergies Type Severity Reaction Last Updated Verified prednisone Allergy Intermediate 03/01/19 Yes Vital Signs Vital Signs Date Time Temp Pulse Resp B/P (MAP) Pulse Ox O2 Delivery O2 Flow Rate FiO2 06/28/19 08:52 63 132/64 06/28/19 07:33 97 Room Air 06/28/19 07:15 98.1 20 98.1 Lab Results Laboratory Tests Test 06/26/19 17:40 06/26/19 21:06 06/27/19 03:29 06/27/19 07:46 Glucose (Fingerstick) 102 mg/dL (70-99) 244 mg/dL (70-99) 305 mg/dL (70-99) Prothrombin Time 22.4 SEC (11.7-14.0) Prothromb Time International Ratio 2.0 (0.8-1.1) Test 06/27/19 11:33 06/27/19 13:15 06/27/19 17:15 06/27/19 20:47 Glucose (Fingerstick) 201 mg/dL (70-99) 210 mg/dL (70-99) 141 mg/dL (70-99) Influenza Type A Antigen Negative (NEGATIVE) Influenza Type B Antigen Negative (NEGATIVE) Test 06/28/19 07:30 06/28/19 08:50 Glucose (Fingerstick) 185 mg/dL (70-99) White Blood Count 3.5 x10^3/uL (4.0-11.0) Red Blood Count 3.62 x10^6/uL (4.30-5.70) Hemoglobin 10.2 g/dL (13.0-17.5) Hematocrit 31.3 % (39.0-53.0) Mean Corpuscular Volume 87 fL (79-100) Mean Corpuscular Hemoglobin 28 pg (25-35) Mean Corpuscular Hemoglobin Concent 33 g/dL (31-37) Red Cell Distribution Width 15.3 % (11.5-14.5) Platelet Count 108 x10^3/uL (140-400) Neutrophils (%) (Auto) 56 % (31-73) Lymphocytes (%) (Auto) 14 % (24-48) Monocytes (%) (Auto) 26 % (0-9) Eosinophils (%) (Auto) 3 % (0-3) Basophils (%) (Auto) 1 % (0-3) Neutrophils # (Auto) 2.0 x10^3/uL (1.8-7.7) Lymphocytes # (Auto) 0.5 x10^3/uL (1.0-4.8) Monocytes # (Auto) 0.9 x10^3/uL (0.0-1.1) Eosinophils # (Auto) 0.1 x10^3/uL (0.0-0.7) Basophils # (Auto) 0.0 x10^3/uL (0.0-0.2) Segmented Neutrophils % 51 % (35-66) Band Neutrophils % 8 % (0-9) Lymphocytes % 22 % (24-48) Monocytes % 14 % (0-10) Eosinophils % 3 % (0-5) Basophils % 2 % (0-3) Platelet Estimate Decreased (ADEQUATE) Anisocytosis Slight Sodium Level 141 mmol/L (136-145) Potassium Level 6.5 mmol/L (3.5-5.1) Chloride Level 106 mmol/L (98-107) Carbon Dioxide Level 27 mmol/L (21-32) Anion Gap 8 (6-14) Blood Urea Nitrogen 44 mg/dL (8-26) Creatinine 8.8 mg/dL (0.7-1.3) Estimated GFR (Cockcroft-Gault) 7.4 Glucose Level 210 mg/dL (70-99) Calcium Level 8.8 mg/dL (8.5-10.1) Phosphorus Level 2.4 mg/dL (2.6-4.7) Albumin 2.3 g/dL (3.4-5.0) Laboratory Tests Test 06/27/19 13:15 06/27/19 17:15 06/27/19 20:47 06/28/19 07:30 Influenza Type A Antigen Negative (NEGATIVE) Influenza Type B Antigen Negative (NEGATIVE) Glucose (Fingerstick) 210 mg/dL (70-99) 141 mg/dL (70-99) 185 mg/dL (70-99) Test 06/28/19 08:50 White Blood Count 3.5 x10^3/uL (4.0-11.0) Red Blood Count 3.62 x10^6/uL (4.30-5.70) Hemoglobin 10.2 g/dL (13.0-17.5) Hematocrit 31.3 % (39.0-53.0) Mean Corpuscular Volume 87 fL (79-100) Mean Corpuscular Hemoglobin 28 pg (25-35) Mean Corpuscular Hemoglobin Concent 33 g/dL (31-37) Red Cell Distribution Width 15.3 % (11.5-14.5) Platelet Count 108 x10^3/uL (140-400) Neutrophils (%) (Auto) 56 % (31-73) Lymphocytes (%) (Auto) 14 % (24-48) Monocytes (%) (Auto) 26 % (0-9) Eosinophils (%) (Auto) 3 % (0-3) Basophils (%) (Auto) 1 % (0-3) Neutrophils # (Auto) 2.0 x10^3/uL (1.8-7.7) Lymphocytes # (Auto) 0.5 x10^3/uL (1.0-4.8) Monocytes # (Auto) 0.9 x10^3/uL (0.0-1.1) Eosinophils # (Auto) 0.1 x10^3/uL (0.0-0.7) Basophils # (Auto) 0.0 x10^3/uL (0.0-0.2) Segmented Neutrophils % 51 % (35-66) Band Neutrophils % 8 % (0-9) Lymphocytes % 22 % (24-48) Monocytes % 14 % (0-10) Eosinophils % 3 % (0-5) Basophils % 2 % (0-3) Platelet Estimate Decreased (ADEQUATE) Anisocytosis Slight Sodium Level 141 mmol/L (136-145) Potassium Level 6.5 mmol/L (3.5-5.1) Chloride Level 106 mmol/L (98-107) Carbon Dioxide Level 27 mmol/L (21-32) Anion Gap 8 (6-14) Blood Urea Nitrogen 44 mg/dL (8-26) Creatinine 8.8 mg/dL (0.7-1.3) Estimated GFR (Cockcroft-Gault) 7.4 Glucose Level 210 mg/dL (70-99) Calcium Level 8.8 mg/dL (8.5-10.1) Phosphorus Level 2.4 mg/dL (2.6-4.7) Albumin 2.3 g/dL (3.4-5.0) Brief Hospital Course Mr Savage is a 64yo M w/ PMHx ESRD, complicated grief, DM2 who was admitted for a cough with fever. Due to "pain in his feet", he discontinued dialysis early the day prior to admission. Laboratories reveal a creatinine of 2.1, potassium 4.1, CO2 29, white count currently 11.1. Influenza A and B antigens were both negative. Chest radiograph reveals no acute abnormalities. Seen by ID in consultation as well as nephrology. Fever pattern improving but Procalcitonin was elevated with no obvious source Legs hurt, restarted gabapentin He is anuric - no urine sample He has a RT AV graft and no external catheters or skin rash He has chronic diarrhea bec of hx colon resection and anastomosis. BC prelim no growth CT scan negative for chest pathology. 06/27: Fever 101F overnight. He feels slightly better. still coughing and aching. Sputum with yeast, no bacteria. K 6.5 prior to dialysis today. He is ready to go home. Sepsis - unknown source, high fever, negative initial influenza ESRD on HD MWF Anuric Acute exacerbation of COPD Generalized weakness Elevated proclacitonin, no source yet Bilateral leg pain Ulcerative colitis Diabetes mellitus Peripheral neuropathy Hypertension History of DVT, on warfarin therapy History of colorectal cancer H/o hepatitis C Osteoarthritis H/o Proteus mirabilis UTI resistant to nitrofurantoin and tetracycline PLAN; ID over the weekend okayed vanc zosyn - WOF vanc - HD pt [place] CT was negative REPEAT FLU SWAB HD per renal Dw him Try nebs for his cough and robitussin Greater than 30 minutes spent on d/c Discharge Information Condition at Discharge: Improved Follow Up: Weeks (1) Disposition/Orders: D/C to Home Scheduled Amlodipine Besylate (Amlodipine Besylate) 10 Mg Tablet, 10 MG PO DAILY for HIGH BLOOD PRESSURE MDD 1, #60 Prescribed by: ABDIAS GREWAL on 03/03/19 1126 Last Action: Continued on 06/23/191746 by ABDIAS GREWAL Amoxicillin/Potassium Clav (Amox Tr-K Clv 500-125 Mg Tab) 1 Each Tablet, 1 TAB PO DAILY for Bronchitis for 5 Days, #5 Prescribed by: TIM RIOS MD on 06/28/19 1247 Doxycycline Hyclate (Doxycycline Hyclate) 100 Mg Tablet, 100 MG PO BID for bronchitis for 5 Days, #10 Prescribed by: TIM RIOS MD on 06/28/19 1247 Gabapentin (Gabapentin) 300 Mg Capsule, 300 MG PO TID for neuopathy MDD 1, #90 Prescribed by: ABDIAS GREWAL on 03/03/191125 Last Action: Continued on 06/23/191746 by ABDIAS GREWAL Insulin Glargine,Hum.rec.anlog (Lantus Solostar) 100 Unit/1 Ml Insuln.pen, 30 UNITS SQ HS for dm MDD 1 for 30 Days Prescribed by: ABDIAS GREWAL on 03/03/191125 Last Action: Converted on 06/23/191746 by ABDIAS GREWAL Insulin Lispro (Humalog) 100 Unit/1 Ml Insuln.pen, 15 UNITS SQ TIDWMEALS for dm MDD 1 for 30 Days Prescribed by: ABDIAS GREWAL on 03/03/191125 Last Action: Continued on 06/23/191746 by ABDIAS GREWAL Warfarin Sodium (Warfarin Sodium) 5 Mg Tablet, 1 TAB PO [id number] for blood thinner, #30 (Reported) Entered as Reported by: TABITHA CLEMONS on 11/20/182142 Last Action: Continued on 06/23/191746 by ABDIAS GREWAL Warfarin Sodium (Warfarin Sodium) 5 Mg Tablet, 1.5 TAB PO QSU for history DVT, #30 (Reported) Entered as Reported by: IVY PEREZ on 03/01/19 141 Last Action: Continued on 06/23/191746 by ABDIAS GREWAL Scheduled PRN Gabapentin (Gabapentin ) 300 Mg Capsule, 2 CAP PO PRN DAILY PRN for NERVE PAIN, #90 Ref 5 (Reported) Entered as Reported by: JEISON GOEL on 08/19/140 Last Action: HELD on 06/23/191746 by TIM VELAZQUEZ MD Jun 28, 2019 12:57
[2019-06-28 15:10] VITALS: BP 121/68
[2019-06-28] MEDS: WARFARIN 5 MG TABLET. PO SCH (16:29)
--- NOTE | 2019-06-28 16:35 | NUR ---
SW following pt. SW notified OP HD clinic pt is discharging today.
--- NOTE | 2019-06-28 16:55 | NUR ---
Discharge Note: UMER VANCE [address] Discharge instructions and discharge home medications reviewed with Patient and a copy given. All questions have been answered and understanding verbalized. The following instructions and handouts were given: ESRD, Weakness Discontinued lines and drains: Peripheral IV intact. Patient discharged to Home or Self Care with Family Member via Wheelchair walked off unit by MARTHA
== END 2019-06-28 16:56 | disposition home or self-care (01) | DRG 871 ==
LOC: ER 15:49 → 5 SOUTH 17:55
PROVIDERS: ADMIT Internal Medicine; ATTEND Internal Medicine
PROC: 5A1D70Z Performance of Urinary Filtration, Intermittent, Less than 6 Hours Per Day (ICD-10-PCS; principal; 2019-06-26)
PROC: 5A1D70Z Performance of Urinary Filtration, Intermittent, Less than 6 Hours Per Day (ICD-10-PCS; 2019-06-28)
DX: A41.9 Sepsis, unspecified organism (principal); N18.6 End stage renal disease; I12.0 Hypertensive chronic kidney disease with stage 5 chronic kidney disease or end stage renal disease; J44.1 Chronic obstructive pulmonary disease with (acute) exacerbation; K51.90 Ulcerative colitis, unspecified, without complications; N25.81 Secondary hyperparathyroidism of renal origin; D63.1 Anemia in chronic kidney disease; E11.22 Type 2 diabetes mellitus with diabetic chronic kidney disease; E11.42 Type 2 diabetes mellitus with diabetic polyneuropathy; E78.00 Pure hypercholesterolemia, unspecified; F17.200 Nicotine dependence, unspecified, uncomplicated; M19.90 Unspecified osteoarthritis, unspecified site; N40.0 Benign prostatic hyperplasia without lower urinary tract symptoms; Z79.01 Long term (current) use of anticoagulants; Z79.4 Long term (current) use of insulin; Z83.3 Family history of diabetes mellitus; Z85.048 Personal history of other malignant neoplasm of rectum, rectosigmoid junction, and anus; Z86.718 Personal history of other venous thrombosis and embolism; Z90.49 Acquired absence of other specified parts of digestive tract; Z91.15 Patient's noncompliance with renal dialysis; Z99.2 Dependence on renal dialysis; E21.3 Hyperparathyroidism, unspecified
CPT/HCPCS: 36415; 70450; 71045; 71250; 74176; 80048; 80053; 80069; 80202; 82553; 82962; 83605; 83735; 83880; 84145; 84484; 85007; 85025; 85610; 87040; 87045; 87070; 87205; 87340; 87804; 93005; 94640; 94760; 96365; 96366; 96367; J1815; J2543; J3370; J7040; J7613; J7626; Q9966; 99285-25; G0378

== ENCOUNTER 2019-09-07 06:52 | Day surgery (SDC) | payer MEDICARE ==
[~2019-09-07] VITALS: Ht 190.5 cm; Wt 92.5 kg
[~2019-09-07 06:52] MED LIST changes: +AMOX1TAB10 PO
[2019-09-07] MEDS ORDERED: HEPARIN SODIUM 5,000 UNIT in IV NORMAL SALINE 500ML BAG 500 ML IRR ONE (07:35)
[2019-09-07] MEDS ORDERED: BUPIVACAINE-EPI 0.5%-1:200000 MPF 30 ML VIAL. INJ ONE (07:45)
[2019-09-07] MEDS ORDERED: ceFAZolin 2GM PREMIX 2 GM/50 ML BAG IV ONE (08:00)
[2019-09-07] MEDS ORDERED: fentaNYL PF VIAL 100 MCG/2 ML VIAL ONE (08:02)
[2019-09-07] MEDS ORDERED: ROCURONIUM 50 MG/5 ML VIAL. ONE (08:02)
[2019-09-07] MEDS ORDERED: PHENYLEPHRINE in 0.9% NACL PF 1 MG/10 ML SYRINGE. IV ONE (08:03)
[2019-09-07] MEDS ORDERED: PROPOFOL 20 ML IV ONE (08:03)
[2019-09-07] MEDS ORDERED: SEVOFLURANE 31 TO 60 MINUTES. IH ONE (08:03)
[2019-09-07] MEDS ORDERED: ONDANSETRON PF 4 MG/2 ML VIAL. ONE (08:03)
[2019-09-07] MEDS ORDERED: DEXAMETHASONE SOD PHOS 4 MG/ML VIAL ONE (08:03)
[2019-09-07] MEDS ORDERED: LIDOCAINE 2% PF 5 ML VIAL. ONE ×2 (08:03→09:27)
[2019-09-07 08:12] LABS: BASO % 1 % (0-3); EOS # 0.1 x10^3/uL (0.0-0.7); EOS % 3 % (0-3); HEMOGLOBIN 10.3 g/dL (13.0-17.5); LYMPH # 0.9 x10^3/uL (1.0-4.8); LYMPH % 26 % (24-48); MEAN CORPUSCULAR HEMOGLOBIN 29 pg (25-35); MEAN CORPUSCULAR HGB CONC 32 g/dL (31-37); MEAN CORPUSCULAR VOLUME 89 fL (79-100); MONO # 0.4 x10^3/uL (0.0-1.1); MONO % 10 % (0-9); NEUT # 2.2 x10^3/uL (1.8-7.7); NEUT % 60 % (31-73); PLATELET COUNT 121 x10^3/uL (140-400); RED BLOOD COUNT 3.61 x10^6/uL (4.30-5.70); RED CELL DISTRIBUTION WIDTH 15.1 % (11.5-14.5); WHITE BLOOD COUNT 3.7 x10^3/uL (4.0-11.0)
[2019-09-07 08:14] LABS: ALBUMIN 3.6 g/dL (3.4-5.0); CALCIUM 8.5 mg/dL (8.5-10.1); CREATININE 6.9 mg/dL (0.7-1.3); GFR 9.8; POTASSIUM 4.8 mmol/L (3.5-5.1)
[2019-09-07 08:21] LABS: PROTHROMBIN TIME PATIENT 13.2 SEC (11.7-14.0)
[2019-09-07] MEDS ORDERED: ePHEDrine PF IN SALINE 50 MG/10 ML SYRINGE. IV ONE (09:01)
[2019-09-07] MEDS ORDERED: GLYCOPYRROLATE 1 MG/5 ML VIAL. ONE (09:15)
[2019-09-07] MEDS ORDERED: NEOSTIGMINE METHYLSULFATE 5 MG/5 ML SYRINGE. ONE (09:15)
--- NOTE | 2019-09-07 09:46 | DISCH ---
DISCHARGE INSTRUCTIONS Condition on Discharge Condition on Discharge: Stable Activity After Discharge Activity Instructions for Disc: Activity as tolerated, Avoid exertion Lifting Instructions after Dis: No heavy lifting Exercise Instruction after Dis: Progress as tolerated Driving Instructions after Dis: Do not drive today Weight Bearing Status after Di: As tolerated Diet after Discharge Diet after Discharge: Renal Dialysis Diet Texture: Regular Swallowing Supervision: None needed Wound Incision Care Wound/Incision Care: Ice to area for comfort, Keep wound/cast CDI Checks after Discharge Checks after discharge: Check blood press - daily, Check blood sugar, ac/hs, Check your Temp as needed, Weigh Yourself Daily Follow-Up Follow up with: Camacho two weeks Treatment/Equipment after DC Adaptive Equipment Issued: None TESS DICKENS MD Sep 07, 2019 09:46
--- NOTE | 2019-09-07 09:53 | PDOC ---
BRIEF OPERATIVE NOTE Date: Sep 07, 2019 Pre-Op Diagnosis ESRD requesting PD catheter Post-Op Diagnosis same, abdominal adhesions Procedure Performed l/s placement of PD catheter, CAMPOS Surgeon Camacho Anesthesia Type: General Blood Loss 5cc IV Fluid 200cc Urine Output 150cc Specimens Obtained none Findings small bowel, omentum with right sided adhesions Complications none TESS DICKENS MD Sep 07, 2019 09:53
[2019-09-07] MEDS: INSULIN LISPRO 100 UNIT/ML 3ML VIAL for OP,RR ONLY. SQ PRN ×2 (09:56→11:01)
[2019-09-07] MEDS ORDERED: IV RINGERS,LACTATED 1000ML 1,000 ML IV SCH (10:04)
[2019-09-07] MEDS ORDERED: DOCU50CA9 PO (10:04)
[2019-09-07] MEDS ORDERED: HYDR-3164 PO (10:04)
[2019-09-07] MEDS ORDERED: fentaNYL PF VIAL 100 MCG/2 ML VIAL IV PRN ×4 (10:15)
[2019-09-07] MEDS ORDERED: PROCHLORPERAZINE 10 MG/2 ML VIAL. IV PRN ×2 (10:15)
[2019-09-07] MEDS ORDERED: ONDANSETRON PF 4 MG/2 ML VIAL. IV PRN (10:15)
[2019-09-07] MEDS ORDERED: HYDROmorphone 2 MG/ML VIAL IV PRN (10:15)
[2019-09-07] MEDS ORDERED: MORPHINE SULFATE 2 MG/ML VIAL. IV PRN ×2 (10:15)
[2019-09-07] MEDS ORDERED: HYDROcodone/APAP 5/325MG 1 TAB TABLET PO ONE (10:15)
--- NOTE | 2019-09-07 10:25 | OP ---
DATE OF SURGERY: PREOPERATIVE DIAGNOSIS: End-stage renal disease, on hemodialysis, requesting peritoneal dialysis catheter. POSTOPERATIVE DIAGNOSES: End-stage renal disease, on hemodialysis, requesting peritoneal dialysis catheter; with abdominal adhesions. PROCEDURE: Laparoscopic placement of peritoneal dialysis catheter, lysis of adhesions. SURGEON: Miguel Dickens MD ANESTHESIA: General endotracheal. ESTIMATED BLOOD LOSS: 5 mL. INTRAVENOUS FLUIDS: 200 mL. URINE OUTPUT: 150 mL. DESCRIPTION OF PROCEDURE: The patient brought to the operating suite, given a general endotracheal anesthetic. Villalpando catheter placed to dependent drainage and the abdomen prepped and draped in usual sterile fashion. A midline incision was infiltrated with local anesthetic, incised and a 5 mm Visiport used to safely gain access into the abdominal cavity. We were able to do so without damaging abdominal contents. Inspection revealed omental adhesions in the right upper quadrant, some small bowel adherent to the right lower quadrant in what appeared to be a hernia from previous ostomy site. The left lower quadrant and pelvis appeared relatively open. A left lower quadrant port was placed and some lysis of adhesions carried out; however, it felt there was adequate space for a catheter placement and as such, we then proceeded to place the catheter in the true pelvis through a left-sided incision under direct vision, seating the Dacron cuff just above the peritoneum. Remainder of the catheter was tunneled subcutaneously at the access site. Pneumoperitoneum released. Catheter flushed with 500 mL of saline, which it then drained. Catheter "packed" with heparinized saline. Incisions closed with 3-0 Vicryl in the subcutaneous tissue and a subcuticular 4-0 Monocryl for the skin. Sterile dressings applied. The patient awakened from his anesthetic after having removal of his Villalpando catheter. Taken to the postoperative area in stable condition. MIGUEL DICKENS MD DR: KEN/ran JOB#: [id number] / [id number] Rosendo Mathews MD
[2019-09-07 10:34] VITALS: BP 113/70
== END 2019-09-07 11:03 | disposition home or self-care (01) ==
LOC: SURG 06:52
PROVIDERS: ATTEND Surgery
DX: E11.22 Type 2 diabetes mellitus with diabetic chronic kidney disease (principal); I12.0 Hypertensive chronic kidney disease with stage 5 chronic kidney disease or end stage renal disease; N18.6 End stage renal disease; F17.210 Nicotine dependence, cigarettes, uncomplicated; E66.3 Overweight; Z68.25 Body mass index [BMI] 25.0-25.9, adult; Z90.49 Acquired absence of other specified parts of digestive tract; Z93.3 Colostomy status; Z79.84 Long term (current) use of oral hypoglycemic drugs
CPT/HCPCS: 36415; 49324; 80048; 82040; 82962; 85025; 85610; 85730; A7015; J0171; J0696; J1100; J1644; J2001; J2370; J2405; J2704; J2710; J3010; J3490; J7030; J7040

== ENCOUNTER → 2019-09-28 | Outpatient (CLI) | payer MEDICARE ==
[2019-09-07 10:34] VITALS: BP 113/70
[~2019-09-28] MED LIST changes: +DOCU50CA9 PO; +HYDR-3164 PO; +LACT1CAP21 PO
== END | disposition home or self-care (01) ==
LOC: LAB 07:53
PROVIDERS: ATTEND Internal Medicine Nephrology
DX: N18.6 End stage renal disease (principal)
CPT/HCPCS: 36415; 84132

== ENCOUNTER → 2020-06-12 | Outpatient (CLI) | payer MEDICARE ==
[2019-10-09 14:08] VITALS: BP 156/78
[~2020-06-12] MED LIST changes: -WARF-78 PO; +WARF5TAB2 PO
== END | disposition home or self-care (01) ==
LOC: LAB 08:04
PROVIDERS: ATTEND Internal Medicine Nephrology
DX: E87.5 Hyperkalemia (principal)
CPT/HCPCS: 36415; 84132

== ENCOUNTER → 2020-08-26 | Outpatient (CLI) | payer MEDICARE ==
[2019-10-09 14:08] VITALS: BP 156/78
[~2020-08-26] MED LIST changes: +AMLO-187 PO; -AMLO10TA8 PO
== END ==
LOC: LAB 09:11
PROVIDERS: ATTEND Internal Medicine Nephrology
DX: N18.6 End stage renal disease (principal); R76.11 Nonspecific reaction to tuberculin skin test without active tuberculosis
CPT/HCPCS: 36415; 84132

== ENCOUNTER → 2020-09-02 | Outpatient (CLI) | payer MEDICARE ==
[2019-10-09 14:08] VITALS: BP 156/78
== END ==
LOC: LAB 09:37
PROVIDERS: ATTEND Internal Medicine Nephrology
DX: N18.6 End stage renal disease (principal)
CPT/HCPCS: 36415; 84132

== ENCOUNTER 2020-11-29 10:30 | Inpatient (IN) | payer MEDICARE ==
[~2020-11-29] VITALS: Ht 190.5 cm; Wt 86.6 kg
[~2020-11-29 10:30] MED LIST changes: -LISI-334 PO; +LISI10TA16 PO; -LISI10TA2 PO; +LISI20TA18 PO
[2020-11-29 12:23] LABS: BASO # 0.1 x10^3/uL (0.0-0.2); BASO % 1 % (0-3); EOS # 0.3 x10^3/uL (0.0-0.7); EOS % 7 % (0-3); HEMATOCRIT 34.7 % (39.0-53.0); HEMOGLOBIN 11.5 g/dL (13.0-17.5); LYMPH # 0.9 x10^3/uL (1.0-4.8); LYMPH % 20 % (24-48); MEAN CORPUSCULAR HEMOGLOBIN 29 pg (25-35); MEAN CORPUSCULAR HGB CONC 33 g/dL (31-37); MEAN CORPUSCULAR VOLUME 88 fL (79-100); MONO # 0.5 x10^3/uL (0.0-1.1); MONO % 11 % (0-9); NEUT # 2.9 x10^3/uL (1.8-7.7); NEUT % 61 % (31-73); PLATELET COUNT 116 x10^3/uL (140-400); RED BLOOD COUNT 3.95 x10^6/uL (4.30-5.70); RED CELL DISTRIBUTION WIDTH 14.2 % (11.5-14.5); WHITE BLOOD COUNT 4.8 x10^3/uL (4.0-11.0)
[2020-11-29 12:36] LABS: ALBUMIN 3.3 g/dL (3.4-5.0); ALBUMIN/GLOBULIN RATIO 0.9 (1.0-1.7); CREATININE 13.3 mg/dL (0.7-1.3); GFR 4.6; MAGNESIUM 2.5 mg/dL (1.8-2.4); TOTAL BILIRUBIN 0.3 mg/dL (0.2-1.0); TOTAL PROTEIN 7.1 g/dL (6.4-8.2)
[2020-11-29 12:46] LABS: POTASSIUM 7.9 mmol/L (3.5-5.1)
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
[2020-11-29] MEDS ORDERED: CALCIUM GLUCONATE 1,000 MG/10 ML VIAL. IVP ONE (13:15)
[2020-11-29] MEDS ORDERED: INSULIN REGULAR 100 UNIT/ML 3ML VIAL. IV ONE (13:15)
[2020-11-29] MEDS ORDERED: DEXTROSE 50% 25 GM / 50ML DISP.SYRIN. IV ONE (13:15)
--- NOTE | 2020-11-29 13:27 | EKG ---
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
[2020-11-29 14:51] VITALS: BP 150/72
[2020-11-29] MEDS ORDERED: DEXTROSE 50% 25 GM / 50ML DISP.SYRIN. IV PRN (15:00)
[2020-11-29] MEDS ORDERED: DIALYSIS PATIENT. MC PRN ×2 (15:00)
[2020-11-29] MEDS ORDERED: IV NORMAL SALINE 1000ML BAG 1,000 ML IV PRN ×2 (15:00)
[2020-11-29] MEDS ORDERED: 0.9 % SODIUM CHLORIDE 10 ML DISP.SYRIN. IV PRN ×2 (15:00)
[2020-11-29 15:22] LABS: PROTHROMBIN TIME PATIENT 14.1 SEC (11.7-14.0)
[2020-11-29 19:30] VITALS: BP 140/74
[2020-11-29] MEDS: WARFARIN 7.5 MG TABLET. PO SCH (20:41)
[2020-11-29] MEDS: INSULIN LISPRO 300 UNITS/3 ML VIAL. SQ SCH (20:42)
[2020-11-29] MEDS: GABAPENTIN 300 MG CAPSULE. PO SCH (20:42)
[2020-11-29] MEDS ORDERED: INSULIN GLARGINE SYRINGE. SQ SCH (21:00)
[2020-11-29] MEDS: LOPERAMIDE 2 MG CAPSULE PO PRN ×2 (22:36→22:57)
[2020-11-29 23:15] VITALS: BP 92/62
[2020-11-30 03:30] VITALS: BP 111/66
[2020-11-30 07:00] VITALS: BP 150/56
[2020-11-30] MEDS ORDERED: ALBUMIN HUMAN 25% 200 ML IV PRN (07:45)
[2020-11-30] MEDS ORDERED: diphenhydrAMINE 50 MG/ML VIAL IV PRN (07:45)
[2020-11-30] MEDS ORDERED: IV NORMAL SALINE 1000ML BAG 1,000 ML IV PRN ×2 (07:45)
[2020-11-30] MEDS ORDERED: LIDOCAINE 1% PF 2 ML VIAL. INJ PRN (07:45)
[2020-11-30] MEDS ORDERED: ACETAMINOPHEN 500 MG TABLET PO PRN (07:45)
[2020-11-30] MEDS ORDERED: DIALYSIS PATIENT. MC PRN (07:45)
[2020-11-30] MEDS: INSULIN LISPRO 300 UNITS/3 ML VIAL. SQ SCH ×3 (08:00→17:46)
[2020-11-30] MEDS ORDERED: INSULIN LISPRO 300 UNITS/3 ML VIAL. SQ ONE (08:30)
[2020-11-30 08:37] LABS: CREATININE 9.2 mg/dL (0.7-1.3); POTASSIUM 5.8 mmol/L (3.5-5.1)
[2020-11-30 08:46] LABS: PROTHROMBIN TIME PATIENT 13.1 SEC (11.7-14.0)
[2020-11-30] MEDS: diphenhydrAMINE 50 MG/ML VIAL IV PRN ×2 (09:26→20:52)
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
[2020-11-30] MEDS: amLODIPine BESYLATE 10 MG TABLET PO SCH (14:00)
[2020-11-30 15:00] VITALS: BP 104/62
--- NOTE | 2020-11-30 15:53 | NUR ---
Nurse's note: The patient underwent hemodialysis today. He returned to the unit at 1330, awake, alert, oriented x3, VSS. Call light placed within reach.
[2020-11-30] MEDS: WARFARIN 7.5 MG TABLET. PO SCH (17:08)
[2020-11-30 20:30] VITALS: BP 117/52
[2020-11-30] MEDS: GABAPENTIN 300 MG CAPSULE. PO SCH (20:51)
[2020-11-30] MEDS: INSULIN GLARGINE SYRINGE. SQ SCH (20:53)
[2020-11-30 23:05] VITALS: BP 115/55
[2020-12-01 05:52] LABS: PROTHROMBIN TIME PATIENT 14.4 SEC (11.7-14.0)
[2020-12-01 07:00] VITALS: BP 135/69
[2020-12-01] MEDS: amLODIPine BESYLATE 10 MG TABLET PO SCH (08:15)
[2020-12-01] MEDS ORDERED: INSULIN LISPRO 300 UNITS/3 ML VIAL. SQ ONE (08:15)
[2020-12-01] MEDS: INSULIN LISPRO 300 UNITS/3 ML VIAL. SQ SCH ×3 (08:21→17:29)
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
[2020-12-01 11:00] VITALS: BP 125/70
--- NOTE | 2020-12-01 11:23 | PDOC ---
DATE OF SERVICE DATE: 12/01/20 TIME: 11:22 SUBJECTIVE ROS No complaints by pt OBJECTIVE Vital Signs Vital Signs Date Time Temp Pulse Resp B/P (MAP) Pulse Ox O2 Delivery O2 Flow Rate FiO2 12/01/20 08:15 92 135/69 12/01/20 07:50 Room Air 12/01/20 07:00 98.3 16 98 98.3 I & 0 Intake and Output 12/01/20 07:00 Intake Total 1258 ml Output Total 0 ml Balance 1258 ml Intake Oral 1258 ml Output Urine Total 0 ml # Voids 1 PHYSICAL EXAM Physical Exam General: NAD HEENT: OM moist Neck Supple Lungs: Clear to auscultation, Non labored Heart: S1S2, RRR, Abdomen: Normal bowel sounds, Soft, No tenderness, No hepatosplenomegaly, No masses Extremities: No clubbing, No cyanosis, No edema, Skin: No rashes, Neuro: grossly normal Psych/Mental Status: Flat affect DIAGNOSIS/ASSESSMENT Assessment & Plan ESRD On HD MWF missed Dialysis treatments, Dialyzed emergently on 11/29 Dialyzed on sat as well, Currently No indication HyperKalemia at presentation Dialyzed Wednesday and sat COPD - stable, will order prn nebs Chronic diarrhea - stable currently Ulcerative colitis - s/p colon resection Diabetes mellitus- BS 500's this am , apparently patient consuming sugar packets and multiple ice cream bars in his room Peripheral neuropathy Hypertension - cont amlodipine History of DVT, on warfarin therapy History of colorectal cancer - s/p resection H/o hepatitis C - in SVR Anemia No indication for MIKEY COMMENT/RELEVANT DATA Meds Current Medications Medications (Trade) Dose Ordered Sig/Raymon Start Time Stop Time Status Last Admin Dose Admin Acetaminophen (Tylenol) 500 mg 1X PRN PRN 11/30/20 07:45 12/01/20 07:44 DC Albumin Human 200 ml @ 200 mls/hr 1X PRN PRN 11/30/20 07:45 11/30/20 13:44 DC Amlodipine Besylate (Norvasc) 10 mg DAILY 11/30/20 09:00 12/01/20 08:15 10 MG Calcium Gluconate (Calcium Gluconate) 1,000 mg 1X ONCE 11/29/20 13:15 11/29/20 13:16 DC 11/29/20 13:17 1,000 MG Dextrose (Dextrose 50%-Water Syringe) 12.5 gm PRN Q15MIN PRN 11/29/20 15:00 Diphenhydramine HCl (Benadryl) 25 mg 1X PRN PRN 11/30/20 07:45 12/01/20 07:44 DC Gabapentin (Neurontin) 300 mg QHS 11/29/20 21:00 11/30/20 20:51 300 MG Info (PHARMACY MONITORING -- do not chart) 1 each PRN DAILY PRN 11/30/20 07:45 Insulin Glargine (Lantus Syringe) 24 unit QHS 11/30/20 21:00 11/30/20 20:53 24 UNIT Insulin Human Lispro (HumaLOG) 5 units 1X ONCE 12/01/20 08:15 12/01/20 08:16 DC 12/01/20 08:22 5 UNITS Insulin Human Regular (HumuLIN R VIAL) 10 unit 1X ONCE 11/29/20 13:15 11/29/20 13:16 DC 11/29/20 13:22 10 UNIT Lidocaine HCl (Xylocaine-Mpf 1% 2ml Vial) 2 ml 1X PRN PRN 11/30/20 07:45 12/01/20 07:44 DC Loperamide HCl (Imodium) 2 mg PRN Q15MIN PRN 11/29/20 22:30 11/29/20 22:57 2 MG Sodium Chloride 1,000 ml @ 400 mls/hr Q2H30M PRN 11/30/20 07:45 11/30/20 19:44 DC Sodium Chloride (Normal Saline Flush) 10 ml 1X PRN PRN 11/29/20 15:00 11/30/20 14:59 DC Warfarin Sodium (Coumadin Per Physician) 1 each PRN DAILY PRN 11/29/20 16:00 11/30/20 13:24 1 EACH Warfarin Sodium (Coumadin) 7.5 mg DAILY16 11/29/20 16:00 11/30/20 17:08 7.5 MG Lab Laboratory Tests Test 11/30/20 13:28 11/30/20 14:37 11/30/20 17:36 11/30/20 20:36 Glucose (Fingerstick) 52 mg/dL (70-99) 135 mg/dL (70-99) 291 mg/dL (70-99) 265 mg/dL (70-99) Test 12/01/20 05:15 12/01/20 07:58 Prothrombin Time 14.4 SEC (11.7-14.0) Prothromb Time International Ratio 1.2 (0.8-1.1) Glucose (Fingerstick) 555 mg/dL (70-99) Results All relevant outside records, renal labs, imaging studies, telemetry/EKG's were reviewed. Justicifation of Admission Dx: Justifications for Admission: Justification of Admission Dx: Yes Chronic Renal Failure: Electrolyte Abnormality NNAMDI TESFAYE MD Dec 01, 2020 11:23
[2020-12-01 15:00] VITALS: BP 136/60
[2020-12-01] MEDS: WARFARIN 7.5 MG TABLET. PO SCH (17:26)
[2020-12-01 19:50] VITALS: BP 120/69
[2020-12-01] MEDS: GABAPENTIN 300 MG CAPSULE. PO SCH (20:41)
[2020-12-01] MEDS: INSULIN GLARGINE SYRINGE. SQ SCH (20:45)
[2020-12-01] MEDS: diphenhydrAMINE 50 MG/ML VIAL IVP PRN (22:26)
[2020-12-01 23:40] VITALS: BP 151/80
[2020-12-02 02:45] VITALS: BP 134/74
[2020-12-02 07:15] VITALS: BP 137/73
[2020-12-02 08:22] VITALS: BP 134/74
[2020-12-02] MEDS: amLODIPine BESYLATE 10 MG TABLET PO SCH (08:22)
[2020-12-02] MEDS: INSULIN LISPRO 300 UNITS/3 ML VIAL. SQ SCH ×3 (08:26→15:08)
[2020-12-02 08:28] LABS: CALCIUM 8.6 mg/dL (8.5-10.1); CREATININE 8.9 mg/dL (0.7-1.3); GFR 7.3
[2020-12-02 08:30] LABS: PROTHROMBIN TIME PATIENT 16.9 SEC (11.7-14.0)
[2020-12-02 08:32] LABS: POTASSIUM 6.6 mmol/L (3.5-5.1)
[2020-12-02] MEDS ORDERED: LIDOCAINE 1% PF 2 ML VIAL. INJ PRN (09:00)
[2020-12-02] MEDS ORDERED: DIALYSIS PATIENT. MC PRN (09:00)
[2020-12-02] MEDS ORDERED: IV NORMAL SALINE 1000ML BAG 1,000 ML IV PRN ×2 (09:00)
--- NOTE | 2020-12-02 09:12 | NUR ---
Pharmacy Warfarin Dosing Note S:Pharmacy consulted to assist with anticoagulation therapy started with target INR: 2 -3 O:UMER VANCE is a 65 year old M with DVT/PE LABS: Last INR: 1.4 Last HGB: 11.5 Last HCT: 34.7 Last PLT: 116 Last dose of 7.5 mg given on 12/01/20 at 1726 A:INR of 1.4 is below desired range but slowly trending up. Target range for this patient is: 2 -3 P: Warfarin dose: 7.5 mg Today at 1600 Bridge Therapy: none Next INR due 12/03/20 Pharmacy anticoagulation service will continue to follow. ADELAIDA SPRING RPH, 12/02/20 0912
[2020-12-02] MEDS: diphenhydrAMINE 50 MG/ML VIAL IVP PRN (09:29)
--- NOTE | 2020-12-02 10:54 | NUR ---
SS following for discharge planning. SS reviewed pt chart and discussed with pt RN. Pt is from home and is currently on room air. Pt has outpatient dialysis at [facility], ; fax [phone], Wednesday, Wednesday, and Wednesday at 1100. SS phoned and faxed clinical updates to [facility]. Probable discharge to home today. SS will continue to follow for discharge planning.
--- NOTE | 2020-12-02 11:17 | PDOC ---
Renal-Progress Notes Subjective Notes Notes NO NEW COMPLAINTS History of Present Illness Hx of present illness STABLE Vitals Vitals Vital Signs Date Time Temp Pulse Resp B/P (MAP) Pulse Ox O2 Delivery O2 Flow Rate FiO2 12/02/20 08:22 93 134/74 12/02/20 07:15 98.3 14 99 Room Air 98.3 Weight Weight [ ] I.O. Intake and Output Intake and Output 12/02/20 07:00 Intake Total 1600 ml Balance 1600 ml Intake Oral 1600 ml # Voids 2 Labs Labs Laboratory Tests Test 12/01/20 12:14 12/01/20 15:42 12/01/20 17:09 12/01/20 20:38 Glucose (Fingerstick) 308 mg/dL (70-99) 304 mg/dL (70-99) 354 mg/dL (70-99) 269 mg/dL (70-99) Test 12/02/20 07:40 12/02/20 07:45 12/02/20 08:15 Sodium Level 133 mmol/L (136-145) Potassium Level 6.6 mmol/L (3.5-5.1) Chloride Level 102 mmol/L (98-107) Carbon Dioxide Level 21 mmol/L (21-32) Anion Gap 10 (6-14) Blood Urea Nitrogen 58 mg/dL (8-26) Creatinine 8.9 mg/dL (0.7-1.3) Estimated GFR (Cockcroft-Gault) 7.3 Glucose Level 350 mg/dL (70-99) Calcium Level 8.6 mg/dL (8.5-10.1) Prothrombin Time 16.9 SEC (11.7-14.0) Prothromb Time International Ratio 1.4 (0.8-1.1) Glucose (Fingerstick) 331 mg/dL (70-99) Review of Systems Constitutional: yes: weakness, alert, oriented Ears/Nose/Throat: Yes: no symptom reported Eyes: Yes: no symptom reported Pulmonary: Yes no symptom reported Cardiovascular: Yes no symptom reported Gastrointestional: Yes: diarrhea Genitourinary: Yes: no symptom reported Musculoskeletal: Yes: muscle stiffness Skin: Yes no symptom reported Psychiatric/Neurological: Yes: no symptom reported Endocrine: Yes: no symptom reported Physical Exam General Appearance: no apparent distress Skin: warm Respiratory: bilateral CTA Heart: S1S2 Abdomen: soft, bowel sounds present Genitourinary: bladder flat Extremities: pulses present, atrophy Neurology: alert, oriented Musculoskeletal: Osteoarthritis Assessment Assessment IMP ESRD ANEMIA HYPERKALEMIA DECONDITIONING NON COMPLIANCE HX OFUC AND COLON RESECTION DM II PLAN HD TODAY UF TO DW WILL FOLLOW ENC COMPLIANCE . MARTINEZ JENSEN MD Dec 02, 2020 11:17
--- NOTE | 2020-12-02 11:39 | PDOC ---
PROGRESS NOTES Date of Service DATE: 12/02/20 TIME: 11:31 Subjective Subjective Patient stated that he is feeling well other than feeling like he needed some benadryl to help him rest. Patient case discussed with RN and onsite case manager. ROS:Pt denied abdominal pain, headache, or SOB Objective Objective Vital Signs Date Time Temp Pulse Resp B/P (MAP) Pulse Ox O2 Delivery O2 Flow Rate FiO2 12/02/20 08:22 93 134/74 12/02/20 07:15 98.3 14 99 Room Air 98.3 Intake and Output 12/02/20 07:00 Intake Total 1600 ml Balance 1600 ml Intake Oral 1600 ml # Voids 2 12/02/2020 Pt seen in room, responsive, fistula site in right arm intact with thrill Physical Exam Heart: Regular rate Extremities: No clubbing, No edema, Normal pulses, Other (R arm fistula site in tact with no wound. ) General: Alert, No acute distress Neuro: Normal speech Diagnosis RENAL FAILURE: Chronic Assessment Assessment Chronic Renal Failure, Hyperkalemia Plan Plan of Care Hope to D/C today post Dialysis Continue home meds DVT prophylaxis Full code Comment Review of Relevant I have reviewed the following items keron (where applicable) has been applied. Labs Laboratory Tests Test 11/30/20 13:28 11/30/20 14:37 11/30/20 17:36 11/30/20 20:36 Glucose (Fingerstick) 52 mg/dL (70-99) 135 mg/dL (70-99) 291 mg/dL (70-99) 265 mg/dL (70-99) Test 12/01/20 05:15 12/01/20 07:58 12/01/20 12:14 12/01/20 15:42 Prothrombin Time 14.4 SEC (11.7-14.0) Prothromb Time International Ratio 1.2 (0.8-1.1) Glucose (Fingerstick) 555 mg/dL (70-99) 308 mg/dL (70-99) 304 mg/dL (70-99) Test 12/01/20 17:09 12/01/20 20:38 12/02/20 07:40 12/02/20 07:45 Glucose (Fingerstick) 354 mg/dL (70-99) 269 mg/dL (70-99) Sodium Level 133 mmol/L (136-145) Potassium Level 6.6 mmol/L (3.5-5.1) Chloride Level 102 mmol/L (98-107) Carbon Dioxide Level 21 mmol/L (21-32) Anion Gap 10 (6-14) Blood Urea Nitrogen 58 mg/dL (8-26) Creatinine 8.9 mg/dL (0.7-1.3) Estimated GFR (Cockcroft-Gault) 7.3 Glucose Level 350 mg/dL (70-99) Calcium Level 8.6 mg/dL (8.5-10.1) Prothrombin Time 16.9 SEC (11.7-14.0) Prothromb Time International Ratio 1.4 (0.8-1.1) Test 12/02/20 08:15 Glucose (Fingerstick) 331 mg/dL (70-99) Laboratory Tests Test 12/01/20 12:14 12/01/20 15:42 12/01/20 17:09 12/01/20 20:38 Glucose (Fingerstick) 308 mg/dL (70-99) 304 mg/dL (70-99) 354 mg/dL (70-99) 269 mg/dL (70-99) Test 12/02/20 07:40 12/02/20 07:45 12/02/20 08:15 Sodium Level 133 mmol/L (136-145) Potassium Level 6.6 mmol/L (3.5-5.1) Chloride Level 102 mmol/L (98-107) Carbon Dioxide Level 21 mmol/L (21-32) Anion Gap 10 (6-14) Blood Urea Nitrogen 58 mg/dL (8-26) Creatinine 8.9 mg/dL (0.7-1.3) Estimated GFR (Cockcroft-Gault) 7.3 Glucose Level 350 mg/dL (70-99) Calcium Level 8.6 mg/dL (8.5-10.1) Prothrombin Time 16.9 SEC (11.7-14.0) Prothromb Time International Ratio 1.4 (0.8-1.1) Glucose (Fingerstick) 331 mg/dL (70-99) Medications Current Medications Insulin Human Regular (HumuLIN R VIAL) 10 unit 1X ONCE IV Last administered on 11/29/20at 13:22; Start 11/29/20 at 13:15; Stop 11/29/20 at 13:16; Status DC Calcium Gluconate (Calcium Gluconate) 1,000 mg 1X ONCE IVP Last administered on 11/29/20at 13:17; Start 11/29/20 at 13:15; Stop 11/29/20 at 13:16; Status DC Dextrose (Dextrose 50%-Water Syringe) 25 gm 1X ONCE IV Last administered on 11/29/20at 13:17; Start 11/29/20 at 13:15; Stop 11/29/20 at 13:16; Status DC Sodium Chloride 1,000 ml @ 1,000 mls/hr Q1H PRN IV hypotension; Start 11/29/20 at 15:00; Stop 11/29/20 at 20:59; Status DC Sodium Chloride (Normal Saline Flush) 10 ml 1X PRN PRN IV AP catheter pack; Start 11/29/20 at 15:00; Stop 11/30/20 at 14:59; Status DC Sodium Chloride (Normal Saline Flush) 10 ml 1X PRN PRN IV SECURITY REPRESENTATIVE catheter pack; Start 11/29/20 at 15:00; Stop 11/30/20 at 14:59; Status DC Sodium Chloride 1,000 ml @ 400 mls/hr Q2H30M PRN IV PATENCY; Start 11/29/20 at 15:00; Stop 11/30/20 at 02:59; Status DC Info (PHARMACY MONITORING -- do not chart) 1 each PRN DAILY PRN MC SEE COMMENTS; Start 11/29/20 at 15:00; Status UNV Info (PHARMACY MONITORING -- do not chart) 1 each PRN DAILY PRN MC SEE COMMENTS; Start 11/29/20 at 15:00; Status Cancel Amlodipine Besylate (Norvasc) 10 mg DAILY PO Last administered on 12/02/20at 08:22; Start 11/30/20 at 09:00 Gabapentin (Neurontin) 300 mg QHS PO Last administered on 12/01/20at 20:41; Start 11/29/20 at 21:00 Warfarin Sodium (Coumadin) 7.5 mg DAILY16 PO Last administered on 12/01/20at 17:26; Start 11/29/20 at 16:00 Insulin Glargine (Lantus Syringe) 22 unit QHS SQ Last administered on 11/29/20at 20:47; Start 11/29/20 at 21:00; Stop 11/30/20 at 11:09; Status DC Insulin Human Lispro (HumaLOG) 0-9 UNITS TIDWMEALS SQ Last administered on 11/30/20at 08:00; Start 11/29/20 at 17:00; Stop 11/30/20 at 11:09; Status DC Dextrose (Dextrose 50%-Water Syringe) 12.5 gm PRN Q15MIN PRN IV SEE COMMENTS; Start 11/29/20 at 15:00 Warfarin Sodium (Coumadin Per Physician) 1 each PRN DAILY PRN MC SEE COMMENTS Last administered on 12/02/20at 09:12; Start 11/29/20 at 16:00 Loperamide HCl (Imodium) 2 mg PRN Q15MIN PRN PO DIARRHEA Last administered on 11/29/20at 22:57; Start 11/29/20 at 22:30 Sodium Chloride 1,000 ml @ 1,000 mls/hr Q1H PRN IV hypotension; Start 11/30/20 at 07:45; Stop 11/30/20 at 13:44; Status DC Albumin Human 200 ml @ 200 mls/hr 1X PRN PRN IV Hypotension; Start 11/30/20 at 07:45; Stop 11/30/20 at 13:44; Status DC Acetaminophen (Tylenol) 500 mg 1X PRN PRN PO MILD PAIN / TEMP > 100.3'F; Start 11/30/20 at 07:45; Stop 12/01/20 at 07:44; Status DC Diphenhydramine HCl (Benadryl) 25 mg 1X PRN PRN IV ITCHING Last administered on 11/30/20at 20:52; Start 11/30/20 at 07:45; Stop 12/01/20 at 07:44; Status DC Diphenhydramine HCl (Benadryl) 25 mg 1X PRN PRN IV ITCHING; Start 11/30/20 at 07:45; Stop 12/01/20 at 07:44; Status DC Sodium Chloride 1,000 ml @ 400 mls/hr Q2H30M PRN IV PATENCY; Start 11/30/20 at 07:45; Stop 11/30/20 at 19:44; Status DC Lidocaine HCl (Xylocaine-Mpf 1% 2ml Vial) 2 ml 1X PRN PRN INJ FOR DIALYSIS; Start 11/30/20 at 07:45; Stop 12/01/20 at 07:44; Status DC Info (PHARMACY MONITORING -- do not chart) 1 each PRN DAILY PRN MC SEE COMMENTS; Start 11/30/20 at 07:45; Stop 12/02/20 at 09:11; Status DC Insulin Human Lispro (HumaLOG) 17 units 1X ONCE SQ Last administered on 11/30/20at 08:30; Start 11/30/20 at 08:30; Stop 11/30/20 at 08:31; Status DC Insulin Glargine (Lantus Syringe) 24 unit QHS SQ Last administered on 12/01/20at 20:45; Start 11/30/20 at 21:00 Insulin Human Lispro (HumaLOG) 10 units TIDWMEALS SQ Last administered on 12/02/20at 08:26; Start 11/30/20 at 12:00 Insulin Human Lispro (HumaLOG) 5 units 1X ONCE SQ Last administered on 12/01/20at 08:22; Start 12/01/20 at 08:15; Stop 12/01/20 at 08:16; Status DC Diphenhydramine HCl (Benadryl) 25 mg PRN QHS PRN IVP ITCHING Last administered on 12/02/20at 09:29; Start 12/01/20 at 22:15 Sodium Chloride 1,000 ml @ 1,000 mls/hr Q1H PRN IV hypotension; Start 12/02/20 at 09:00; Stop 12/02/20 at 14:59 Sodium Chloride 1,000 ml @ 400 mls/hr Q2H30M PRN IV PATENCY; Start 12/02/20 at 09:00; Stop 12/02/20 at 20:59 Lidocaine HCl (Xylocaine-Mpf 1% 2ml Vial) 2 ml 1X PRN PRN INJ FOR DIALYSIS Last administered on 12/02/20at 10:04; Start 12/02/20 at 09:00; Stop 12/03/20 at 08:59 Info (PHARMACY MONITORING -- do not chart) 1 each PRN DAILY PRN MC SEE COMMENTS; Start 12/02/20 at 09:00 Active Scripts Active Gabapentin 300 Mg Capsule 300 Mg PO TID MDD 1 Amlodipine Besylate 10 Mg Tablet 10 Mg PO DAILY MDD 1 Reported Culturelle (Lactobacillus Rhamnosus Gg) 1 Each Capsule 1 Cap PO DAILY 7 Days Humalog (Insulin Lispro) 100 Unit/1 Ml Cartridge 10 Unit SQ TIDWMEALS Lantus Solostar (Insulin Glargine,Hum.rec.anlog) 100 Unit/1 Ml Insuln.pen 22 Unit SQ QHS Warfarin Sodium 5 Mg Tablet 1.5 Tab PO QSU Warfarin Sodium 5 Mg Tablet 1 Tab PO [id number] Vitals/I & O Vital Sign - Last 24 Hours 12/01/20 12/01/20 12/01/20 12/01/20 13:40 15:00 19:50 20:08 Temp 99.3 98.6 99.3 98.6 Pulse 67 98 Resp 16 18 B/P (MAP) 136/60 (85) 120/69 (86) Pulse Ox 96 97 O2 Delivery Room Air Room Air Room Air Room Air 12/01/20 12/02/20 12/02/20 12/02/20 23:40 02:45 07:15 08:22 Temp 98.1 97.9 98.3 98.1 97.9 98.3 Pulse 91 93 75 93 Resp 18 20 14 B/P (MAP) 151/80 (103) 134/74 (94) 137/73 (94) 134/74 Pulse Ox 98 97 99 O2 Delivery Room Air Room Air Room Air Intake and Output 12/01/20 12/01/20 12/02/20 15:00 23:00 07:00 Intake Total 400 ml 240 ml 960 ml Balance 400 ml 240 ml 960 ml Justifications for Admission Other Justification JORGE MAN III DO Dec 02, 2020 11:39
--- NOTE | 2020-12-02 12:26 | DS ---
DATE OF DISCHARGE: 12/02/2020 ADMISSION DIAGNOSES: Hyperkalemia, weakness, end-stage renal disease, chronic obstructive pulmonary disease, chronic diarrhea. DISCHARGE DIAGNOSES: Resolving hyperkalemia, resolving weakness, end-stage renal disease, on dialysis, chronic obstructive pulmonary disease, chronic diarrhea, leg pain, ulcerative colitis, diabetes, hypertension, neuropathy, history of deep venous thrombosis, history of colorectal cancer, history of hepatitis C, osteoarthritis, anemia. CONSULTS: Nephrology. PROCEDURES: Dialysis. HOSPITAL COURSE: The patient is a pleasant middle-aged male, who presented with weakness, was noted to be hyperkalemic 7.9. He was admitted. We dialyzed him several times. Today, I saw and examined him. He is at his baseline, doing better. We plan to discharge to home. DISPOSITION: Home after dialysis today if okay with Nephrology. ACTIVITY: As tolerated. DIET: Renal. MEDICATIONS: Please see the MRAD. I did continue his home medications, which included Coumadin 5 mg a day, amlodipine 10 a day, gabapentin 300 b.i.d., Culturelle, insulin. JORGE MAN DO DR: ALICIA/ran JOB#: [id number] / [id number]
[2020-12-02] MEDS: WARFARIN 7.5 MG TABLET. PO SCH (15:06)
--- NOTE | 2020-12-02 16:08 | NUR ---
Discharge Note: UMER VANCE Discharge instructions and discharge home medications reviewed with Patient and a copy given. All questions have been answered and understanding verbalized. The following instructions and handouts were given: renal dialysis Patient discharged to home with self care via wheelchair.
== END 2020-12-02 16:08 | disposition home or self-care (01) | DRG 640 ==
LOC: ER 10:30 → 2 NORTH 12:51
PROVIDERS: ADMIT Internal Medicine; ATTEND Internal Medicine
PROC: 5A1D70Z Performance of Urinary Filtration, Intermittent, Less than 6 Hours Per Day (ICD-10-PCS; principal; 2020-11-29)
PROC: 5A1D70Z Performance of Urinary Filtration, Intermittent, Less than 6 Hours Per Day (ICD-10-PCS; 2020-11-30)
PROC: 5A1D70Z Performance of Urinary Filtration, Intermittent, Less than 6 Hours Per Day (ICD-10-PCS; 2020-12-02)
DX: E87.5 Hyperkalemia (principal); N18.6 End stage renal disease; I12.0 Hypertensive chronic kidney disease with stage 5 chronic kidney disease or end stage renal disease; K51.90 Ulcerative colitis, unspecified, without complications; E21.3 Hyperparathyroidism, unspecified; D64.9 Anemia, unspecified; Z21 Asymptomatic human immunodeficiency virus [HIV] infection status; E11.40 Type 2 diabetes mellitus with diabetic neuropathy, unspecified; E11.22 Type 2 diabetes mellitus with diabetic chronic kidney disease; J44.9 Chronic obstructive pulmonary disease, unspecified; M19.90 Unspecified osteoarthritis, unspecified site; Z79.01 Long term (current) use of anticoagulants; Z79.4 Long term (current) use of insulin; Z85.048 Personal history of other malignant neoplasm of rectum, rectosigmoid junction, and anus; Z86.19 Personal history of other infectious and parasitic diseases; Z86.718 Personal history of other venous thrombosis and embolism; Z87.891 Personal history of nicotine dependence; Z90.49 Acquired absence of other specified parts of digestive tract; Z91.19 Patient's noncompliance with other medical treatment and regimen; Z99.2 Dependence on renal dialysis; Z88.8 Allergy status to other drugs, medicaments and biological substances
CPT/HCPCS: 36415; 80048; 80053; 82962; 83735; 84100; 85025; 85610; 86706; 87340; 93005; 96374; 96375; J0610; J1200; J1815; J3490; 99285-25; G0378

== ENCOUNTER 2021-01-04 20:34 | Emergency (ER) | payer MEDICARE ==
[~2021-01-04] VITALS: Ht 190.5 cm; Wt 85.2 kg
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
[2021-01-04] MEDS ORDERED: fentaNYL PF VIAL 100 MCG/2 ML VIAL IV ONE (21:30)
[2021-01-04] MEDS ORDERED: NEOMY/BACITR/POLYMYXIN OINT PACKET. TP ONE (21:30)
[2021-01-04 21:35] LABS: BASO % 1 % (0-3); EOS # 0.2 x10^3/uL (0.0-0.7); EOS % 3 % (0-3); HEMATOCRIT 34.2 % (39.0-53.0); HEMOGLOBIN 11.6 g/dL (13.0-17.5); LYMPH % 14 % (24-48); MEAN CORPUSCULAR HEMOGLOBIN 29 pg (25-35); MEAN CORPUSCULAR HGB CONC 34 g/dL (31-37); MEAN CORPUSCULAR VOLUME 86 fL (79-100); MONO # 0.9 x10^3/uL (0.0-1.1); MONO % 12 % (0-9); NEUT # 5.2 x10^3/uL (1.8-7.7); NEUT % 71 % (31-73); PLATELET COUNT 160 x10^3/uL (140-400); RED BLOOD COUNT 3.99 x10^6/uL (4.30-5.70); RED CELL DISTRIBUTION WIDTH 13.7 % (11.5-14.5); WHITE BLOOD COUNT 7.3 x10^3/uL (4.0-11.0)
[2021-01-04 21:51] LABS: CALCIUM 7.6 mg/dL (8.5-10.1); CREATININE 14.6 mg/dL (0.7-1.3); GFR 4.1; POTASSIUM 4.6 mmol/L (3.5-5.1)
[2021-01-04 21:57] LABS: ALBUMIN 3.5 g/dL (3.4-5.0); ALBUMIN/GLOBULIN RATIO 0.9 (1.0-1.7); MAGNESIUM 2.2 mg/dL (1.8-2.4); TOTAL BILIRUBIN 0.3 mg/dL (0.2-1.0); TOTAL PROTEIN 7.2 g/dL (6.4-8.2)
--- NOTE | 2021-01-04 21:57 | RAD ---
Exam: Chest one view INDICATION: Cough, noncompliance with hemodialysis TECHNIQUE: Frontal view of the chest Comparisons: None FINDINGS: The cardiomediastinal silhouette and pulmonary vessels are within normal limits. The lung and pleural spaces are clear. IMPRESSION: No acute cardiopulmonary process. Electronically signed by: Catina Lai MD (01/04/2021 9:55 PM) NINFA
[2021-01-04] MEDS ORDERED: HYDR-2759 PO (23:03)
[2021-01-04 23:28] VITALS: BP 154/87
--- NOTE | 2021-01-06 07:26 | EKG ---
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
== END 2021-01-04 23:27 | disposition home or self-care (01) ==
LOC: ER 20:34
DX: S90.414A Abrasion, right lesser toe(s), initial encounter (principal); M79.671 Pain in right foot; M79.672 Pain in left foot; N18.6 End stage renal disease; Z99.2 Dependence on renal dialysis; G89.29 Other chronic pain; E10.9 Type 1 diabetes mellitus without complications; F17.200 Nicotine dependence, unspecified, uncomplicated; Z85.9 Personal history of malignant neoplasm, unspecified; Z98.890 Other specified postprocedural states; Z88.8 Allergy status to other drugs, medicaments and biological substances; X58.XXXA Exposure to other specified factors, initial encounter; Y93.89 Activity, other specified; Y92.89 Other specified places as the place of occurrence of the external cause; Y99.8 Other external cause status
CPT/HCPCS: 36415; 71045; 80053; 83735; 85025; 96374; 99285; J3010; 93005

== ENCOUNTER 2021-01-17 13:35 | Inpatient (IN) | payer MEDICARE ==
[~2021-01-17] VITALS: Ht 182.9 cm; Wt 89.2 kg
[~2021-01-17 13:35] MED LIST changes: +HYDR-2759 PO
[2021-01-17 14:43] LABS: BASO % 1 % (0-3); EOS # 0.2 x10^3/uL (0.0-0.7); EOS % 5 % (0-3); HEMATOCRIT 30.9 % (39.0-53.0); HEMOGLOBIN 10.1 g/dL (13.0-17.5); LYMPH # 0.8 x10^3/uL (1.0-4.8); LYMPH % 17 % (24-48); MEAN CORPUSCULAR HEMOGLOBIN 28 pg (25-35); MEAN CORPUSCULAR HGB CONC 33 g/dL (31-37); MEAN CORPUSCULAR VOLUME 86 fL (79-100); MONO # 0.6 x10^3/uL (0.0-1.1); MONO % 13 % (0-9); NEUT # 2.9 x10^3/uL (1.8-7.7); NEUT % 65 % (31-73); PLATELET COUNT 174 x10^3/uL (140-400); RED CELL DISTRIBUTION WIDTH 13.6 % (11.5-14.5); WHITE BLOOD COUNT 4.5 x10^3/uL (4.0-11.0)
[2021-01-17 14:54] LABS: CALCIUM 9.7 mg/dL (8.5-10.1); CREATININE 8.9 mg/dL (0.7-1.3); GFR 7.3; POTASSIUM 4.9 mmol/L (3.5-5.1)
--- NOTE | 2021-01-17 14:59 | RAD ---
EXAM: Head CT without contrast. HISTORY: Left-sided paresthesia. TECHNIQUE: Computed tomographic images of the head were obtained without contrast. *One or more of the following individualized dose reduction techniques were utilized for this examina tion: 1. Automated exposure control. 2. Adjustment of the mA and/or kV according to patient size. 3. Use of iterative reconstruction technique. COMPARISON: 10/01/2019. FINDINGS: There is no acute or subacute extra-axial or intraparenchymal hemorrhage. There is no mass effect or midline shift. There is no hydrocephalus. There are areas of decreased attenuation within the cerebral white matter, nonspecific and likely rel ated to chronic small vessel disease. The visualized portions of the orbits, paranasal sinuses and mastoid air cells are unremarkable. No s uspicious calvarial lesion is seen. IMPRESSION: 1. No acute intracranial finding. Note is made that MRI is more sensitive for acute infarction. 2. Bilateral cerebral white matter changes, likely due to chronic small vessel disease. Electronically signed by: Kiesha Powell MD (01/17/2021 2:57 PM) [id number]
[2021-01-17 15:00] LABS: ALBUMIN 3.1 g/dL (3.4-5.0); ALBUMIN/GLOBULIN RATIO 0.8 (1.0-1.7); MAGNESIUM 2.2 mg/dL (1.8-2.4); TOTAL BILIRUBIN 0.2 mg/dL (0.2-1.0); TOTAL PROTEIN 6.9 g/dL (6.4-8.2)
--- NOTE | 2021-01-17 15:37 | ED.ADGEN ---
Past Medical History Past Medical History: Cancer, Diabetes-Type I, DVT, Renal Failure, Other Additional Past Medical Histor: ulcerative colitis, coloncancer Past Surgical History: Other Additional Past 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, 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 Smoking Status: Current Every Day Smoker Alcohol Use: Rarely Drug Use: None General Adult EDM: Chief Complaint: NEURO SYMPTOMS/DEFICITS HPI: HPI: Patient is a 65 year old AA male brought to the emergency department by EMS after being sent by the dialysis center after he reported having numbness left side of his body and weakness in his lower extremities. Patient reported that the symptoms have been ongoing for 2-3 days. Patient reports that due to the symptoms the dialysis center refused to start treatment and sent him to the ER. Patient complains of pain with palpation of his left index finger but states that his left hand and arm are numb. He denies any headache, vision changes, chest pain, palpitations, shortness of breath, fever, nausea, vomiting, or diarrhea. Patient denies any known exposure to COVID-19. On arrival he denies any pain. Patient has a grumpy affect is irritated that his dialysis was not completed. Review of Systems: Review of Systems: Complete ROS is negative unless otherwise noted in HPI. Allergies: Allergies: Allergies Coded Allergies Type Severity Reaction Last Updated Verified prednisone Allergy Intermediate 10/04/19 Yes Physical Exam: PE: See Above Constitutional: Well developed, well nourished, no acute distress, non-toxic appearance. [] HENT: Normocephalic, atraumatic, bilateral external ears normal, nose normal. [] Eyes: PERRLA, EOMI, conjunctiva normal, no discharge. [] Neck: Normal range of motion, no stridor. [] Cardiovascular:Heart rate regular rhythm Lungs & Thorax: Respirations even and unlabored, no retractions, no respiratory distress Abdomen: soft, no tenderness Skin: Warm, dry, no erythema, no rash; wound noted to the lateral aspect of the dorsal index finger near the DIP joint, nonfluctuant, no warmth, no drainage, mild erythema. [] Extremities: no cyanosis, ROM intact, no edema; Right arm AV fistula present, positive thrill, . [] Neurologic: Alert and oriented X 3, no drift bilateral lower extremity these however weakness is appreciated, 4/4 strength BLE, 5 out of 5 strength of BUE, decreased sensation reported on the left however testing is inconsistent, speech clear, no focal deficits noted. [] Psychologic: Grumpy affect, judgement normal, mood normal. [] Current Patient Data: Labs: Laboratory Tests Test 01/17/21 14:00 White Blood Count 4.5 x10^3/uL (4.0-11.0) Red Blood Count 3.60 x10^6/uL (4.30-5.70) L Hemoglobin 10.1 g/dL (13.0-17.5) L Hematocrit 30.9 % (39.0-53.0) L Mean Corpuscular Volume 86 fL (79-100) Mean Corpuscular Hemoglobin 28 pg (25-35) Mean Corpuscular Hemoglobin Concent 33 g/dL (31-37) Red Cell Distribution Width 13.6 % (11.5-14.5) Platelet Count 174 x10^3/uL (140-400) Neutrophils (%) (Auto) 65 % (31-73) Lymphocytes (%) (Auto) 17 % (24-48) L Monocytes (%) (Auto) 13 % (0-9) H Eosinophils (%) (Auto) 5 % (0-3) H Basophils (%) (Auto) 1 % (0-3) Neutrophils # (Auto) 2.9 x10^3/uL (1.8-7.7) Lymphocytes # (Auto) 0.8 x10^3/uL (1.0-4.8) L Monocytes # (Auto) 0.6 x10^3/uL (0.0-1.1) Eosinophils # (Auto) 0.2 x10^3/uL (0.0-0.7) Basophils # (Auto) 0.0 x10^3/uL (0.0-0.2) Prothrombin Time 26.3 SEC (11.7-14.0) H Prothrombin Time INR 2.4 (0.8-1.1) H Sodium Level 139 mmol/L (136-145) Potassium Level 4.9 mmol/L (3.5-5.1) Chloride Level 100 mmol/L (98-107) Carbon Dioxide Level 28 mmol/L (21-32) Anion Gap 11 (6-14) Blood Urea Nitrogen 54 mg/dL (8-26) H Creatinine 8.9 mg/dL (0.7-1.3) H Estimated GFR (Cockcroft-Gault) 7.3 BUN/Creatinine Ratio 6 (6-20) Glucose Level 254 mg/dL (70-99) H Calcium Level 9.7 mg/dL (8.5-10.1) Magnesium Level 2.2 mg/dL (1.8-2.4) Total Bilirubin 0.2 mg/dL (0.2-1.0) Aspartate Amino Transferase (AST) 17 U/L (15-37) Alanine Aminotransferase (ALT) 16 U/L (16-63) Alkaline Phosphatase 80 U/L (46-116) Troponin I Quantitative < 0.017 ng/mL (0.000-0.055) Total Protein 6.9 g/dL (6.4-8.2) Albumin 3.1 g/dL (3.4-5.0) L Albumin/Globulin Ratio 0.8 (1.0-1.7) L Laboratory Tests 01/17/21 14:00 Laboratory Tests 01/17/21 14:00 Vital Signs: Vital Signs Date Time Temp Pulse Resp B/P (MAP) Pulse Ox O2 Delivery O2 Flow Rate FiO2 01/17/21 15:50 83 18 153/80 (104) 98 Room Air 01/17/21 13:35 98.7 98.7 EKG: EK-sinus rhythm rate, 79, QRS (T) contour abnormality consistent with anteroseptal infarct that is probably old, T wave abnormality in the high lateral leads, no STEMI, read by Dr. Diaz [] Heart Score: C/O Chest Pain: No Risk Scores: Score 0 - 3: 2.5% MACE over next 6 weeks - Discharge Home Score 4 - 6: 20.3% MACE over next 6 weeks - Admit for Clinical Observation Score 7 - 10: 72.7% MACE over next 6 weeks - Early Invasive Strategies Radiology/Procedures: Radiology/Procedures: PROCEDURE: CT HEAD WO CONTRAST EXAM: Head CT without contrast. HISTORY: Left-sided paresthesia. TECHNIQUE: Computed tomographic images of the head were obtained without contrast. *One or more of the following individualized dose reduction techniques were utilized for this examination: 1. Automated exposure control. 2. Adjustment of the mA and/or kV according to patient size. 3. Use of iterative reconstruction technique. COMPARISON: 10/01/2019. FINDINGS: There is no acute or subacute extra-axial or intraparenchymal hem orrhage. There is no mass effect or midline shift. There is no hydrocephalus. There are areas of decreased attenuation within the cerebral white matter, nonspecific and likely related to chronic small vessel disease. The visualized portions of the orbits, paranasal sinuses and mastoid air cells a re unremarkable. No suspicious calvarial lesion is seen. IMPRESSION: 1. No acute intracranial finding. Note is made that MRI is more sensitive for acute infarction. 2. Bilateral cerebral white matter changes, likely due to chronic small vessel disease.[] Course & Med Decision Making: Course & Med Decision Making Pertinent Labs and Imaging studies reviewed. (See chart for details) [id number] with Dr. Robles who is the admitting physician, and care was assumed following discussion of patient. Will admit patient for generalized weakness, chronic renal failure, and paresthesias. Will consult Dr. Mckeon and advise of need for dialysis. Patient's vital signs stable. Patient remains afebrile, appears nontoxic, respirations even and unlabored. Patient will be admitted to the medical telemetry floor. Patient's case and plan of care also discussed with Dr. Diaz 2009- Dr. Barbosa advised of pt admission to the hospital fore weakness, paresthesias and CRF will need dialysis. [] Emilie Disclaimer: Emilie Disclaimer: This electronic medical record was generated, in whole or in part, using a voice recognition dictation system. Departure Departure Impression: Primary Impression: ESRD (end stage renal disease) on dialysis Additional Impressions: Generalized weakness Paresthesia Disposition: ADMITTED INPATIENT Admitting Physician: MARY (Travis) Condition: STABLE Referrals: UNKNOWN PCP NAME (PCP) Scripts Hydrocodone/Acetaminophen (Hydrocodone-Acetamin 5-325 mg) 1 Each Tablet 1 EACH PO Q4-6HRS PRN for PAIN for 5 Days, #15 TAB Prov: TIM RIOS MD 01/21/21 Clotrimazole (Itch Relief) 15 Gm Cream..g. 1 DORCAS TP BID for Fungal dermatitis for 14 Days, #45 GM 0 Refills Prov: TIM RIOS MD 01/21/21 Doxycycline Hyclate (DOXYCYCLINE HYCLATE) 100 Mg Capsule 1 CAP PO BID for Cellulitis for 10 Days, #20 CAP Prov: TIM RIOS MD 01/21/21 Amoxicillin (AMOXICILLIN) 500 Mg Tablet 1 TAB PO BID for Cellulitis for 10 Days, #20 TAB Prov: TIM RIOS MD 01/21/21 [Clotrimazole 1% Topical] 1 DORCAS DORCAS No Conflict Check 1 DORCAS TP BID for Fungal dermatitis for 14 Days, #28 G Prov: TIM RIOS MD 01/21/21 Attending Signature Attending Signature I have participated in the care of this patient and I have reviewed and agree with all pertinent clinical information above including history, exam, and recommendations. Attending Co-Sign Attending Co-Sign The patient was seen and interviewed as well as examined at the bedside. The chart was reviewed. The case was discussed. Agree with the plan of care. Attending Co-Sign Attending Co-Sign The patient was seen and interviewed as well as examined at the bedside. The chart was reviewed. The case was discussed. Agree with the plan of care. Problem Qualifiers CHEMA CASTILLO APRN Jan 17, 2021 15:37 EDMOND DIAZ DO Jan 22, 2021 05:59
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
--- NOTE | 2021-01-17 16:08 | EKG ---
[facility] [address] [place] [address] Test Date: 2021-01-17 Test Time: 13:47:34 Pat Name: UMER VANCE Department: Room: Gender: M [employer] Developer: : 1955 Requested By: CHEMA CASTILLO Order Number: [id number] Reading MD: Measurements Intervals [place] Rate: 79 P: 36 [place]: 168 QRS: 8 QRSD: 100 T: 65 QT: 408 QTc: 469 Interpretive Statements SINUS RHYTHM QRS(T) CONTOUR ABNORMALITY CONSISTENT WITH ANTEROSEPTAL INFARCT PROBABLY OLD T ABNORMALITY IN HIGH LATERAL LEADS ABNORMAL ECG RI6.02 No previous ECG available for comparison
[2021-01-17] MEDS ORDERED: ACETAMINOPHEN 325 MG TABLET. PO PRN (16:45)
[2021-01-17] MEDS ORDERED: guaiFENesin ORAL 200 MG/10 ML LIQUID. PO PRN (16:45)
[2021-01-17] MEDS ORDERED: ONDANSETRON PF 4 MG/2 ML VIAL. IV PRN (16:45)
[2021-01-17] MEDS ORDERED: ALBUTEROL SULFATE 2.5 MG/3 ML NEBU. NEB PRN (16:45)
[2021-01-17] MEDS ORDERED: DOCUSATE SODIUM 100 MG CAPSULE. PO PRN (16:45)
[2021-01-17] MEDS ORDERED: LORazepam 0.5 MG TABLET PO PRN (16:45)
[2021-01-17] MEDS ORDERED: 0.9 % SODIUM CHLORIDE 10 ML DISP.SYRIN. IV PRN (16:45)
[2021-01-17 17:42] LABS: PROTHROMBIN TIME PATIENT 26.3 SEC (11.7-14.0)
[2021-01-17 18:20] VITALS: BP 169/79
[2021-01-17 19:00] VITALS: BP 141/84
[2021-01-17] MEDS ORDERED: NEOM28.32 TP (19:56)
--- NOTE | 2021-01-17 20:00 | NUR ---
ADMISSION NOTE Pt admitted to room 674 on dayshift, reportedly around 1800 per dayshift WILLIAM Morris. Pt is A/Ox4 at this time, reports weakness of left hand, and difficulty with fine motor movement. Pt reports this has been going on for a day or two. Pt has wounds to right foot toes. Pt reports he has only had these wounds for "about a week", after applying aspercreme to the area d/t pain. Pt reports that he has not been regularly taking his oral medications at home, but does report taking his insulin. Pt also states he was just released from [facility] within the last couple of days on oral antibiotics, but pt does not know the medication name. Pt does seem to be somewhat forgetful, as he states he was just admitted here a couple weeks ago, but his old chart shows pt was here at the beginning of November. Pt can be abrasive/argumentative in his speech and demenor at times. Call light in reach. Pt instructed not to get OOB without help, pt laughed, and said he can get up himself. Explained fall risk precautions to pt. Will monitor.
[2021-01-17] MEDS ORDERED: C.DIFF MED SCREEN BY RX. MC ONE (20:30)
[2021-01-17] MEDS ORDERED: cefTRIAXone IV Push 1 GM VIAL. IVP SCH (21:00)
[2021-01-17] MEDS ORDERED: diphenhydrAMINE HCL 25 MG CAPSULE PO PRN (21:15)
[2021-01-17] MEDS ORDERED: DEXTROSE 50% 25 GM / 50ML DISP.SYRIN. IV PRN (21:15)
[2021-01-17] MEDS ORDERED: hydrOXYzine 25 MG TABLET PO PRN (21:15)
[2021-01-17] MEDS ORDERED: INSULIN LISPRO 300 UNITS/3 ML VIAL. SQ ONE (21:30)
[2021-01-17] MEDS: diphenhydrAMINE ORAL ELIXIR 12.5 MG/5 ML ML PO PRN (22:13)
[2021-01-17] MEDS: WARFARIN 5 MG TABLET. PO SCH (22:14)
[2021-01-17] MEDS: GABAPENTIN 300 MG CAPSULE. PO SCH (22:14)
[2021-01-17] MEDS: NEOMY/BACITR/POLYMYXIN OINT PACKET. TP SCH (22:15)
[2021-01-17] MEDS: HYDROcodone/APAP 5/325MG 1 TAB TABLET PO PRN (22:15)
[2021-01-17] MEDS: INSULIN GLARGINE SYRINGE. SQ SCH (22:23)
[2021-01-17 23:00] VITALS: BP 137/77
--- NOTE | 2021-01-18 00:15 | NUR ---
IV Note Pts IV found out earlier in shift. Family Medicine Resident and Anesthesia attempted new IV site, unsuccessfully. Dr. Robles notified of no IV access. Order to hold this evenings dose of IV Rocephin and to be re-evaluated in the AM.
[2021-01-18 03:00] VITALS: BP 168/81
--- NOTE | 2021-01-18 05:51 | RAD ---
Study: XR FOOT_RIGHT 3 VIEWS Indication: Wounds. Comparison: None. Findings: No aggressive osteolytic lysis to suggest osteomyelitis. Soft tissues at the tip of the great and sec ond toes with truncation of the distal soft tissues at the second toe. Scattered degenerative changes are relatively mild. Flexion deformities of the lesser toes. Extensive vascular calcifications. Impression: 1. No definitive radiographic manifestations of osteomyelitis. 2. Irregular soft tissues at the far distal great and second toes could represent areas of ulceration but this would be better assessed clinically. Extensive vascular calcifications. Electronically signed by: FARHAN APONTE MD (01/18/2021 5:49 AM) [facility]
--- NOTE | 2021-01-18 06:22 | NUR ---
CONSULT NOTE Attempted to call consult to Dr. Marci Zuluaga, answering machine stated to call [phone]. When calling that number, a message says the number you have dialed is inactive. Unable to call consult. Will pass on in report.
[2021-01-18 07:00] VITALS: BP 160/77
--- NOTE | 2021-01-18 07:11 | RAD ---
EXAM: Bilateral lower extremity arterial Doppler sonogram. HISTORY: Bilateral lower extremity wounds. Peripheral vascular disease. TECHNIQUE: Wilcox scale and color Doppler sonographic imaging of the lower extremity arteries with spec tral waveform analysis was performed. COMPARISON: None. FINDINGS: There are biphasic and triphasic waveforms throughout the bilateral lower extremity arterie s, with exception of a monophasic waveform within the right dorsalis pedis artery suggesting hemodyna mically significant proximal stenosis. There is a mildly elevated peak systolic velocity of 152 cm/s within the mid right superficial femoral artery. There is a moderate to severely elevated peak systol ic velocity of 281 cm/s within the proximal left superficial femoral artery. IMPRESSION: 1. Elevated peak systolic velocity within the proximal left superficial femoral artery suggesting mod erate to severe stenosis. There is also an elevated peak systolic velocity within the mid right super ficial femoral artery suggesting mild stenosis. 2. Abnormal waveform within the right dorsalis pedis artery suggesting hemodynamically significant pr oximal stenosis. 3. No evidence of arterial occlusion. Electronically signed by: Kiesha Powell MD (01/18/2021 7:09 AM) [id number]
[2021-01-18] MEDS: INSULIN LISPRO 300 UNITS/3 ML VIAL. SQ SCH ×7 (07:30→21:00)
[2021-01-18] MEDS: HYDROcodone/APAP 5/325MG 1 TAB TABLET PO PRN ×2 (08:59→19:41)
[2021-01-18] MEDS: NEOMY/BACITR/POLYMYXIN OINT PACKET. TP SCH (08:59)
[2021-01-18] MEDS: GABAPENTIN 300 MG CAPSULE. PO SCH ×3 (08:59→21:38)
[2021-01-18] MEDS: amLODIPine BESYLATE 10 MG TABLET PO SCH (09:00)
[2021-01-18] MEDS ORDERED: LACTOBACILLUS RHAMNOSUS GG 1 CAPSULE. PO SCH (09:00)
--- NOTE | 2021-01-18 09:56 | PDOC ---
PROGRESS NOTES Date of Service: DATE: 01/18/21 TIME: 09:55 Chief Complaint Chief Complaint DICTATED and SIGNED BY: KIESHA FORMAN MD DATE: 01/17/21 [id number] VTE Prophylaxis Ordered VTE Prophylaxis Devices: Yes VTE Pharmacological Prophylaxi: Yes Assessment/Plan Assessment/Plan IMPRESSION: NONCOMPLIANCE WITH DIALYSIS ACUTE Left arm, hand paresthesia POLYSUBSTANCE ABUSE right foot wounds No acute intracranial finding. ON CT HEAD MRI is more sensitive for acute infarction. Bilateral cerebral white matter changes, likely due to chronic small vessel disease. Weakness - likely from electrolyte abnormalities ESRD on HD MWF - COPD - historical, prn nebs Chronic diarrhea - Bilateral leg pain -diabetic neuropathy Ulcerative colitis - s/p colon resection Diabetes mellitus - will restart insulin Peripheral neuropathy - gabapentin renal dosing Hypertension - cont amlodipine History of DVT, on warfarin therapy History of colorectal cancer - s/p resection Subtotal colectomy. Ileoanal J- pouch H/o hepatitis C - in SVR Osteoarthritis - tylenol prn Anemia - of chronic renal disease. HX COCAINE ABUSE Elevated peak systolic velocity within the proximal left superficial femoral artery suggesting moderate to severe stenosis. There is also an elevated peak systolic velocity within the mid right superficial femoral artery suggesting mild stenosis./ PVD Abnormal waveform within the right dorsalis pedis artery suggesting hemodynamically significant proximal stenosis. No evidence of arterial occlusion. Extensive vascular calcifications. of right foot PLAN ADMIT NEPHROLOGY CONSULT TONIGHT x ray right foot 3 VIEWS ID CONSULT NEUROCHECKS Q 4 HRS WOUND CARE NURSE CONSULT IV ROCEPHIN 1 GM Q 24 HRS CULTURE RIGHT FOOT WOUNDS BLOOD CULTURE NEPHROLOGY CONSULT DVT PROPHYLAXIS ON COUMADIN vascular surgery consult 38 MIN PT EXAM, CHART REVIEW, > 50% of time spent with exam, chart review, pt care coordination D/W ER Justifications for Admission Other Justification History of Present Illness History of Present Illness Identification/Chief Complaint Chief Complaint MISSED DIALYSIS, weak, left hand numbness RIGHT FOOT WOUNDS History of Present Illness History of Present Illness Mr Savage is a 65yo M w/ PMHx ESRD, complicated grief, DM2 who comes to ED c/o weakness and numbness in bilateral hands. Notes he has missed dialysis today, and dialyses MWF [facility] 1 IN ER Weakness - likely from electrolyte abnormalities ESRD on HD MWF - COPD - historical, prn nebs hxChronic diarrhea - Bilateral leg pain -diabetic neuropathy hxUlcerative colitis - s/p colon resection Diabetes mellitus - will restart insulin hx polysubstance abuse He denies any chest pain, palpitations, headache, vision changes, nausea, vomiting, or shortness of breath has long hx noncompliance here, several admits, has right foot wounds as well, new chemical induced Past Medical History Past Medical History Past Medical History: Cancer, Diabetes-Type I, DVT, Renal Failure, Other Additional Past Medical Histor: ulcerative colitis, coloncancer Past Surgical History: Other Additional Past 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, 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 Smoking Status: Current Every Day Smoker Alcohol Use: Rarely Drug Use: None FHX COPD Cardiovascular: HTN Pulmonary: No pertinent hx CENTRAL NERVOUS SYSTEM: Other GI: No pertinent hx Heme/Onc: Anemia NOS, Other Hepatobiliary: Hep A/B/C Psych: No pertinent hx, Addictions Musculoskeletal: Osteoarthritis Rheumatologic: No pertinent hx Infectious disease: HIV Renal/: Chronic renal insuff, Chronic renal failure, Hematuria Endocrine: Diabetes, Hyperparathyroidism Past Surgical History Past Surgical History: Cholecystectomy, Colectomy Family History Family History: No Significant, Diabetes, Hypertension Social History Smoke: <1 pack per day ALCOHOL: occassional Drugs: Cocaine, Crystal meth Current Medications Current Medications Active Scripts Active Hydrocodone-Acetamin 5-325 mg (Hydrocodone/Acetaminophen) 1 Each Tablet 0.5-1 Each PO Q4-6HRS PRN Gabapentin 300 Mg Capsule 300 Mg PO TID MDD 1 Amlodipine Besylate 10 Mg Tablet 10 Mg PO DAILY MDD 1 Reported Culturelle (Lactobacillus Rhamnosus Gg) 1 Each Capsule 1 Cap PO DAILY 7 Days Humalog (Insulin Lispro) 100 Unit/1 Ml Cartridge 10 Unit SQ TIDWMEALS Lantus Solostar (Insulin Glargine,Hum.rec.anlog) 100 Unit/1 Ml Insuln.pen 22 Unit SQ QHS Warfarin Sodium 5 Mg Tablet 1.5 Tab PO QSU Warfarin Sodium 5 Mg Tablet 1 Tab PO [id number] Allergies Allergies: Coded Allergies: prednisone (Verified Allergy, Intermediate, 10/04/19) PT STATES LEG BECAME SWOLLEN FROM TAKING AND GOT A BLOOD CLOT ROS General: YES: Fatigue; No: Chills, Night Sweats, Malaise, Appetite, Other PSYCHOLOGICAL ROS: No: Anxiety, Behavioral Disorder, Concentration difficultie, Decreased libido, Depression, Disorientation, Hallucinations, Hostility, Irritablity, Memory difficulties, Mood Swings, Obsessive thoughts, Physical abuse, Sexual abuse, Sleep disturbances, Suicidal ideation, Other Eyes: No Blurry vision, No Decreased vision, No Double vision, No Dry eyes, No Excessive tearing, No Eye Pain, No Itchy Eyes, No Loss of vision, No Photophobia, No Scotomata, No Uses contacts, No Uses glasses, No Other HEENT: No: Heacaches, Visual Changes, Hearing change, Nasal congestion, Nasal discharge, Oral lesions, Sinus pain, Sore Throat, Epistaxis, Sneezing, Snoring, Tinnitus, Vertigo, Vocal changes, Other ALLERGY AND IMMUNOLOGY: No: Hives, Insect Bite Sensitivity, Itchy/Watery Eyes, Nasal Congestion, Post Nasal Drip, Seasonal Allergies, Other Hematological and Lymphatic: No: Bleeding Problems, Blood Clots, Blood Transfusions, Brusing, Night Sweats, Pallor, Swollen Lymph Nodes, Other ENDOCRINE: No: Breast Changes, Galactorrhea, Hair Pattern Changes, Hot Flashes, Malaise/lethargy, Mood Swings, Palpitations, Polydipsia/polyuria, Skin Changes, Temperature Intolerance, Unexpected Weight Changes, Other Breast: No New/Changing Breast Lumps, No Nipple changes, No Nipple discharge, No Other Respiratory: No: Cough, Hemoptysis, Orthopnea, Pleuritic Pain, Shortness of breath, SOB with excertion, Sputum Changes, Stridor, Tachypnea, Wheezing, Other Cardiovascular: No Chest Pain, No Palpitations, No Orthopnea, No Paroxysmal Noc. Dyspnea, No Edema, No Lt Headedness, No Other Gastrointestinal: No Nausea, No Vomiting, No Abdominal Pain, No Diarrhea, No Constipation, No Melena, No Hematochezia, No Other Musculoskeletal: Yes Joint Stiffness, Yes Joint Swelling (r foot ) Neurological: Yes Numbness/Tingling; No Behavorial Changes, No Bowel/Bladder ControlChng, No Confusion, No Dizziness, No Gait Disturbance, No Headaches, No Impaired Coord/balance, No Memory Loss, No Seizures, No Speech Problems, No Tremors, No Visual Changes, No Weakness, No Other Skin: Yes Dry Skin, Yes Rash, Yes Skin Lesion Changes; No Eczema, No Hair Changes, No Lumps, No Mole Changes, No Mottling, No Nail Changes, No Pruritus, No Other, No Acne Vitals Vitals Vital Signs Date Time Temp Pulse Resp B/P (MAP) Pulse Ox O2 Delivery O2 Flow Rate FiO2 01/18/21 08:59 18 97 Room Air 01/18/21 07:00 97.7 83 160/77 (104) 97.7 Physical Exam Physical Exam Physical Exam Physical Exam General: NAD HEENT: OM moist Neck Supple Lungs: Clear to auscultation, Non labored Heart: S1S2, RRR, Abdomen: Normal bowel sounds, Soft, No tenderness, No hepatosplenomegaly, No masses Extremities: No clubbing, No cyanosis, No edema, Skin: No rashes, Neuro: grossly normal Psych/Mental Status: Flat affect General: Alert, Oriented X3, Cooperative, No acute distress HEENT: PERRLA Lungs: Clear to auscultation, Normal air movement Heart: RRR Breasts: Not examined Abdomen: Normal bowel sounds, Soft Rectal Exam: not examined PELVIC: Examination not indicated Extremities: No clubbing, No cyanosis, No edema Skin: ULCERATED skin on several toes right foot Neuro: Normal speech, Sensation intact, Cranial nerves 3-12 NL Psych/Mental Status: Mental status NL, Mood NL General: Alert, Oriented X3, Cooperative, No acute distress, mild distress Heart: Regular rate, No murmurs Lungs: Clear Abdomen: Normal bowel sounds, Soft, No tenderness Extremities: No clubbing, No cyanosis, No edema, Other (several ulcers with skin loss right foot, toes) Skin: No significant lesion Labs LABS SEX: M EXAM STATUS: ADM IN ORD. PHYSICIAN: KACI SANDERS MD REASON: PVD WOUNDS PROCEDURE: DUPLEX LOWER EXTREMITY BILAT EXAM: Bilateral lower extremity arterial Doppler sonogram. HISTORY: Bilateral lower extremity wounds. Peripheral vascular disease. TECHNIQUE: Wilcox scale and color Doppler sonographic imaging of the lower extremity arteries with spectral waveform analysis was performed. COMPARISON: None. FINDINGS: There are biphasic and triphasic waveforms throughout the bilateral lower extremity arteries, with exception of a monophasic waveform within the right dorsalis pedis artery suggesting hemodynamically significant proximal stenosis. There is a mildly elevated peak systolic velocity of 152 cm/s within the mid right superficial femoral artery. There is a moderate to severely elevated peak systolic velocity of 281 cm/s within the proximal left superficial femoral artery. IMPRESSION: 1. Elevated peak systolic velocity within the proximal left superficial femoral artery suggesting moderate to severe stenosis. There is also an elevated peak systolic velocity within the mid right superficial femoral artery suggesting mild stenosis. 2. Abnormal waveform within the right dorsalis pedis artery suggesting hemodynamically significant proximal stenosis. 3. No evidence of arterial occlusion. Electronically signed by: Kiesha Forman MD (01/18/2021 7:09 AM) [id number] DICTATED and SIGNED BY: KIESHA FORMAN MD DATE: 01/18/21 [id number] Study: XR FOOT_RIGHT 3 VIEWS Indication: Wounds. Comparison: None. Findings: No aggressive osteolytic lysis to suggest osteomyelitis. Soft tissues at the tip of the great and second toes with truncation of the distal soft tissues at the second toe. Scattered degenerative changes are relatively mild. Flexion deformities of the lesser toes. Extensive vascular calcifications. Impression: 1. No definitive radiographic manifestations of osteomyelitis. 2. Irregular soft tissues at the far distal great and second toes could represent areas of ulceration but this would be better assessed clinically. Extensive vascular calcifications. Electronically signed by: FARHAN APONTE MD (01/18/2021 5:49 AM) [facility] DICTATED and SIGNED BY: FARHAN APONTE MD DATE: 01/18/21 [id number] Laboratory Tests Test 01/17/21 14:00 01/17/21 21:08 01/18/21 00:52 01/18/21 07:58 White Blood Count 4.5 x10^3/uL (4.0-11.0) Red Blood Count 3.60 x10^6/uL (4.30-5.70) Hemoglobin 10.1 g/dL (13.0-17.5) Hematocrit 30.9 % (39.0-53.0) Mean Corpuscular Volume 86 fL (79-100) Mean Corpuscular Hemoglobin 28 pg (25-35) Mean Corpuscular Hemoglobin Concent 33 g/dL (31-37) Red Cell Distribution Width 13.6 % (11.5-14.5) Platelet Count 174 x10^3/uL (140-400) Neutrophils (%) (Auto) 65 % (31-73) Lymphocytes (%) (Auto) 17 % (24-48) Monocytes (%) (Auto) 13 % (0-9) Eosinophils (%) (Auto) 5 % (0-3) Basophils (%) (Auto) 1 % (0-3) Neutrophils # (Auto) 2.9 x10^3/uL (1.8-7.7) Lymphocytes # (Auto) 0.8 x10^3/uL (1.0-4.8) Monocytes # (Auto) 0.6 x10^3/uL (0.0-1.1) Eosinophils # (Auto) 0.2 x10^3/uL (0.0-0.7) Basophils # (Auto) 0.0 x10^3/uL (0.0-0.2) Prothrombin Time 26.3 SEC (11.7-14.0) Prothromb Time International Ratio 2.4 (0.8-1.1) Sodium Level 139 mmol/L (136-145) Potassium Level 4.9 mmol/L (3.5-5.1) Chloride Level 100 mmol/L (98-107) Carbon Dioxide Level 28 mmol/L (21-32) Anion Gap 11 (6-14) Blood Urea Nitrogen 54 mg/dL (8-26) Creatinine 8.9 mg/dL (0.7-1.3) Estimated GFR (Cockcroft-Gault) 7.3 BUN/Creatinine Ratio 6 (6-20) Glucose Level 254 mg/dL (70-99) Calcium Level 9.7 mg/dL (8.5-10.1) Magnesium Level 2.2 mg/dL (1.8-2.4) Total Bilirubin 0.2 mg/dL (0.2-1.0) Aspartate Amino Transf (AST/SGOT) 17 U/L (15-37) Alanine Aminotransferase (ALT/SGPT) 16 U/L (16-63) Alkaline Phosphatase 80 U/L (46-116) Troponin I Quantitative < 0.017 ng/mL (0.000-0.055) Total Protein 6.9 g/dL (6.4-8.2) Albumin 3.1 g/dL (3.4-5.0) Albumin/Globulin Ratio 0.8 (1.0-1.7) Glucose (Fingerstick) 402 mg/dL (70-99) 114 mg/dL (70-99) 123 mg/dL (70-99) Assessment and Plan Assessmemt and Plan Problems Medical Problems: (1) Paresthesia Status: Acute Comment Review of Relevant I have reviewed the following items keron (where applicable) has been applied. Labs Laboratory Tests Test 01/17/21 14:00 01/17/21 21:08 01/18/21 00:52 01/18/21 07:58 White Blood Count 4.5 x10^3/uL (4.0-11.0) Red Blood Count 3.60 x10^6/uL (4.30-5.70) Hemoglobin 10.1 g/dL (13.0-17.5) Hematocrit 30.9 % (39.0-53.0) Mean Corpuscular Volume 86 fL (79-100) Mean Corpuscular Hemoglobin 28 pg (25-35) Mean Corpuscular Hemoglobin Concent 33 g/dL (31-37) Red Cell Distribution Width 13.6 % (11.5-14.5) Platelet Count 174 x10^3/uL (140-400) Neutrophils (%) (Auto) 65 % (31-73) Lymphocytes (%) (Auto) 17 % (24-48) Monocytes (%) (Auto) 13 % (0-9) Eosinophils (%) (Auto) 5 % (0-3) Basophils (%) (Auto) 1 % (0-3) Neutrophils # (Auto) 2.9 x10^3/uL (1.8-7.7) Lymphocytes # (Auto) 0.8 x10^3/uL (1.0-4.8) Monocytes # (Auto) 0.6 x10^3/uL (0.0-1.1) Eosinophils # (Auto) 0.2 x10^3/uL (0.0-0.7) Basophils # (Auto) 0.0 x10^3/uL (0.0-0.2) Prothrombin Time 26.3 SEC (11.7-14.0) Prothromb Time International Ratio 2.4 (0.8-1.1) Sodium Level 139 mmol/L (136-145) Potassium Level 4.9 mmol/L (3.5-5.1) Chloride Level 100 mmol/L (98-107) Carbon Dioxide Level 28 mmol/L (21-32) Anion Gap 11 (6-14) Blood Urea Nitrogen 54 mg/dL (8-26) Creatinine 8.9 mg/dL (0.7-1.3) Estimated GFR (Cockcroft-Gault) 7.3 BUN/Creatinine Ratio 6 (6-20) Glucose Level 254 mg/dL (70-99) Calcium Level 9.7 mg/dL (8.5-10.1) Magnesium Level 2.2 mg/dL (1.8-2.4) Total Bilirubin 0.2 mg/dL (0.2-1.0) Aspartate Amino Transf (AST/SGOT) 17 U/L (15-37) Alanine Aminotransferase (ALT/SGPT) 16 U/L (16-63) Alkaline Phosphatase 80 U/L (46-116) Troponin I Quantitative < 0.017 ng/mL (0.000-0.055) Total Protein 6.9 g/dL (6.4-8.2) Albumin 3.1 g/dL (3.4-5.0) Albumin/Globulin Ratio 0.8 (1.0-1.7) Glucose (Fingerstick) 402 mg/dL (70-99) 114 mg/dL (70-99) 123 mg/dL (70-99) Laboratory Tests Test 01/17/21 14:00 01/17/21 21:08 01/18/21 00:52 01/18/21 07:58 White Blood Count 4.5 x10^3/uL (4.0-11.0) Red Blood Count 3.60 x10^6/uL (4.30-5.70) Hemoglobin 10.1 g/dL (13.0-17.5) Hematocrit 30.9 % (39.0-53.0) Mean Corpuscular Volume 86 fL (79-100) Mean Corpuscular Hemoglobin 28 pg (25-35) Mean Corpuscular Hemoglobin Concent 33 g/dL (31-37) Red Cell Distribution Width 13.6 % (11.5-14.5) Platelet Count 174 x10^3/uL (140-400) Neutrophils (%) (Auto) 65 % (31-73) Lymphocytes (%) (Auto) 17 % (24-48) Monocytes (%) (Auto) 13 % (0-9) Eosinophils (%) (Auto) 5 % (0-3) Basophils (%) (Auto) 1 % (0-3) Neutrophils # (Auto) 2.9 x10^3/uL (1.8-7.7) Lymphocytes # (Auto) 0.8 x10^3/uL (1.0-4.8) Monocytes # (Auto) 0.6 x10^3/uL (0.0-1.1) Eosinophils # (Auto) 0.2 x10^3/uL (0.0-0.7) Basophils # (Auto) 0.0 x10^3/uL (0.0-0.2) Prothrombin Time 26.3 SEC (11.7-14.0) Prothromb Time International Ratio 2.4 (0.8-1.1) Sodium Level 139 mmol/L (136-145) Potassium Level 4.9 mmol/L (3.5-5.1) Chloride Level 100 mmol/L (98-107) Carbon Dioxide Level 28 mmol/L (21-32) Anion Gap 11 (6-14) Blood Urea Nitrogen 54 mg/dL (8-26) Creatinine 8.9 mg/dL (0.7-1.3) Estimated GFR (Cockcroft-Gault) 7.3 BUN/Creatinine Ratio 6 (6-20) Glucose Level 254 mg/dL (70-99) Calcium Level 9.7 mg/dL (8.5-10.1) Magnesium Level 2.2 mg/dL (1.8-2.4) Total Bilirubin 0.2 mg/dL (0.2-1.0) Aspartate Amino Transf (AST/SGOT) 17 U/L (15-37) Alanine Aminotransferase (ALT/SGPT) 16 U/L (16-63) Alkaline Phosphatase 80 U/L (46-116) Troponin I Quantitative < 0.017 ng/mL (0.000-0.055) Total Protein 6.9 g/dL (6.4-8.2) Albumin 3.1 g/dL (3.4-5.0) Albumin/Globulin Ratio 0.8 (1.0-1.7) Glucose (Fingerstick) 402 mg/dL (70-99) 114 mg/dL (70-99) 123 mg/dL (70-99) Medications Current Medications Sodium Chloride (Normal Saline Flush) 3 ml QSHIFT PRN IV AFTER MEDS AND BLOOD DRAWS; Start 01/17/21 at 16:45 Ondansetron HCl (Zofran) 4 mg PRN Q4HRS PRN IV NAUSEA/VOMITING; Start 01/17/21 at 16:45 Acetaminophen (Tylenol) 650 mg PRN Q4HRS PRN PO TEMP OVER 100.4F OR MILD PAIN; Start 01/17/21 at 16:45 Docusate Sodium (Colace) 100 mg PRN BID PRN PO HARD STOOLS; Start 01/17/21 at 16:45 Albuterol Sulfate (Ventolin Neb Soln) 2.5 mg PRN Q4HRS PRN NEB SHORTNESS OF BREATH; Start 01/17/21 at 16:45 Guaifenesin (Robitussin) 200 mg PRN Q4HRS PRN PO COUGH; Start 01/17/21 at 16:45 Lorazepam (Ativan) 0.5 mg PRN Q4HRS PRN PO ANXIETY / AGITATION; Start 01/17/21 at 16:45 Amlodipine Besylate (Norvasc) 10 mg DAILY PO ; Start 01/18/21 at 09:00 Gabapentin (Neurontin) 300 mg TID PO Last administered on 01/18/21at 08:59; Start 01/17/21 at 21:00 Acetaminophen/ Hydrocodone Bitart (Lortab 5/325) ONE HALF TO ONE TABLET... PRN Q8HRS PRN PO MODERATE TO SEVERE PAIN Last administered on 01/18/21at 08:59; Start 01/17/21 at 17:15 Warfarin Sodium (Coumadin) 5 mg [id number] PO Last administered on 01/17/21at 22:14; Start 01/17/21 at 16:00 Warfarin Sodium (Coumadin) 7.5 mg QSU PO ; Start 01/19/21 at 16:00 Insulin Glargine (Lantus Syringe) 22 unit QHS SQ Last administered on 01/17/21at 22:23; Start 01/17/21 at 21:00 Insulin Human Lispro (HumaLOG) 10 units TIDWMEALS SQ ; Start 01/18/21 at 08:00 Lactobacillus Rhamnosus (Culturelle) 1 cap DAILY PO Last administered on 01/18/21at 08:59; Start 01/18/21 at 09:00 Warfarin Sodium (Coumadin Per Pharmacy) 1 each PRN DAILY PRN MC SEE COMMENTS; Start 01/17/21 at 17:30 Ceftriaxone Sodium (Rocephin) 1 gm Q24H IVP ; Start 01/17/21 at 21:00 Pharmacy Consult (C.diff Med Screen By Rx) 1 each 1X ONCE MC ; Start 01/17/21 at 20:30; Stop 01/17/21 at 20:31; Status DC Zolpidem Tartrate (Ambien) 5 mg PRN QHS PRN PO INSOMNIA; Start 01/17/21 at 21:15 Hydroxyzine HCl (Atarax) 25 mg PRN Q6HRS PRN PO ITCHING; Start 01/17/21 at 21:15 Diphenhydramine HCl (Benadryl) 12.5 mg PRN Q6HRS PRN PO ITCHING; Start 01/17/21 at 21:15; Stop 01/17/21 at 21:33; Status DC Insulin Human Lispro (HumaLOG) 0-7 UNITS QIDACHS SQ ; Start 01/18/21 at 07:30 Dextrose (Dextrose 50%-Water Syringe) 12.5 gm PRN Q15MIN PRN IV SEE COMMENTS; Start 01/17/21 at 21:15 Insulin Human Lispro (HumaLOG) 12 units 1X ONCE SQ Last administered on 01/17/21at 22:24; Start 01/17/21 at 21:30; Stop 01/17/21 at 21:31; Status DC Neomycin/ Polymyxin/ Bacitracin (Triple Antibiotic Ointment) 1 pkt DAILY TP Last administered on 01/18/21at 08:59; Start 01/17/21 at 22:00 Diphenhydramine HCl (Benadryl Oral Elixir) 12.5 mg PRN Q6HRS PRN PO ITCHING Last administered on 01/17/21at 22:13; Start 01/17/21 at 21:45 Active Scripts Active Hydrocodone-Acetamin 5-325 mg (Hydrocodone/Acetaminophen) 1 Each Tablet 0.5-1 Each PO Q4-6HRS PRN Gabapentin 300 Mg Capsule 300 Mg PO TID MDD 1 Amlodipine Besylate 10 Mg Tablet 10 Mg PO DAILY MDD 1 Reported Neosporin Ointment (Neomy Sulf/Bacitrac Zn/Poly) 28.3 Gm Oint...g. 28.3 Gm TP DAILY Culturelle (Lactobacillus Rhamnosus Gg) 1 Each Capsule 1 Cap PO DAILY 7 Days Humalog (Insulin Lispro) 100 Unit/1 Ml Cartridge 10 Unit SQ TIDWMEALS Lantus Solostar (Insulin Glargine,Hum.rec.anlog) 100 Unit/1 Ml Insuln.pen 18 Unit SQ QHS Warfarin Sodium 5 Mg Tablet 2 Tab PO QFRSUN Warfarin Sodium 5 Mg Tablet 1 Tab PO [id number] Vitals/I & O Vital Sign - Last 24 Hours 01/17/21 01/17/21 01/17/21 01/17/21 13:35 14:09 14:39 14:50 Temp 98.7 98.7 Pulse 83 75 74 80 Resp 18 18 18 B/P (MAP) 162/77 (105) 136/66 (89) 147/71 (96) 167/84 (111) Pulse Ox 98 96 98 99 O2 Delivery Room Air Room Air Room Air Room Air 01/17/21 01/17/21 01/17/21 01/17/21 15:05 15:20 15:35 15:50 Pulse 82 89 81 83 Resp 18 B/P (MAP) 134/73 (93) 162/109 (126) 139/74 (95) 153/80 (104) Pulse Ox 96 94 96 98 O2 Delivery Room Air Room Air Room Air Room Air 01/17/21 01/17/21 01/17/21 01/17/21 16:05 16:20 16:35 16:50 Pulse 88 91 86 78 B/P (MAP) 145/73 (97) 167/83 (111) 164/82 (109) 133/72 (92) Pulse Ox 98 98 98 97 O2 Delivery Room Air Room Air Room Air Room Air 01/17/21 01/17/21 01/17/21 01/17/21 17:05 17:20 17:35 18:20 Pulse 85 78 86 89 Resp 18 18 B/P (MAP) 154/80 (104) 131/72 (91) 134/73 (93) 169/79 (109) Pulse Ox 98 95 95 100 O2 Delivery Room Air Room Air Room Air Room Air 01/17/21 01/17/21 01/17/21 01/17/21 19:00 20:00 22:15 22:45 Temp 98.8 98.8 Pulse 89 Resp 18 20 18 B/P (MAP) 141/84 (103) Pulse Ox 98 O2 Delivery Room Air Room Air Room Air 01/17/21 01/18/21 01/18/21 01/18/21 23:00 03:00 07:00 08:59 Temp 98.3 97.5 97.7 98.3 97.5 97.7 Pulse 82 84 83 Resp 18 18 18 18 B/P (MAP) 137/77 (97) 168/81 (110) 160/77 (104) Pulse Ox 97 98 97 97 O2 Delivery Room Air Room Air Intake and Output 01/17/21 01/17/21 01/18/21 15:00 23:00 07:00 Intake Total 590 ml Balance 590 ml Justicifation of Admission Dx: Justifications for Admission: Justification of Admission Dx: Yes Chronic Renal Failure: Electrolyte Abnormality KACI SANDERS MD Jan 18, 2021 09:56
--- NOTE | 2021-01-18 10:46 | NUR ---
Pharmacy Medication Review S: Consulted for medication review re: C.diff Risk Assessment score of 5 O: UMER VANCE is a 65 year old with: Previous C.diff infection: No Previous hospitalization: Within 30 days Recent antibiotics: Within 30 days Use of gastric acid suppressor: No Transfer from [place]/[facility]: No Current antibiotic regimen: Current acid suppression regimen: A: Patient has been identified as having risk factors for C.diff infection as noted above. P: Antibiotic Regimen recommendation made: N/A Probiotic ordered: Yes PPI changed to [id number]: N/A Polo Alarcon [facility], 01/18/21 [id number]
[2021-01-18 11:00] VITALS: BP 126/66
--- NOTE | 2021-01-18 12:58 | PDOC2 ---
CONSULT Date of Consult Date of Consult DATE: 01/18/21 TIME: 12:53 Reason for Consult Reason for Consult: ESRD, MISSED HIS DIALYSIS Referring Physician Referring Physician: MARILYN Identification/Chief Complaint Chief Complaint WEAKNESS Source Source: Chart review History of Present Illness Reason for Visit: THIS IS A 65 YR OLD WITH ESRD DUE TO HTN AND DM II HX. WENT TO HIS HD TX YESTERDAY AND COMPLAINED OF WEAKNESS. HE ALSO HAD SOME ASYMMETRICAL HAND STRENGTH PER ASSESSING NURSE. OP HD IS MWF AND HE IS NON COMPLIANT AT TIMES. LABS ARE C/W HIS ESRD, HAS RIGHT ARM AV ACCESS FOR HIS HD. Past Medical History Cardiovascular: HTN Pulmonary: No pertinent hx CENTRAL NERVOUS SYSTEM: Other GI: No pertinent hx Heme/Onc: Anemia NOS, Other Hepatobiliary: Hep A/B/C Psych: No pertinent hx, Addictions Musculoskeletal: Osteoarthritis Rheumatologic: No pertinent hx Infectious disease: HIV Renal/: Chronic renal insuff, Chronic renal failure, Hematuria Endocrine: Diabetes, Hyperparathyroidism Past Surgical History Past Surgical History: Cholecystectomy, Colectomy Family History Family History: No Significant, Diabetes, Hypertension Social History <1 pack per day ALCOHOL: occassional Drugs: Cocaine, Crystal meth Lives: with Family Current Problem List Problem List Problems Medical Problems: (1) Paresthesia Status: Acute Current Medications Current Medications Current Medications Sodium Chloride (Normal Saline Flush) 3 ml QSHIFT PRN IV AFTER MEDS AND BLOOD DRAWS; Start 01/17/21 at 16:45 Ondansetron HCl (Zofran) 4 mg PRN Q4HRS PRN IV NAUSEA/VOMITING; Start 01/17/21 at 16:45 Acetaminophen (Tylenol) 650 mg PRN Q4HRS PRN PO TEMP OVER 100.4F OR MILD PAIN; Start 01/17/21 at 16:45 Docusate Sodium (Colace) 100 mg PRN BID PRN PO HARD STOOLS; Start 01/17/21 at 1 6:45 Albuterol Sulfate (Ventolin Neb Soln) 2.5 mg PRN Q4HRS PRN NEB SHORTNESS OF BREATH; Start 01/17/21 at 16:45 Guaifenesin (Robitussin) 200 mg PRN Q4HRS PRN PO COUGH; Start 01/17/21 at 16:45 Lorazepam (Ativan) 0.5 mg PRN Q4HRS PRN PO ANXIETY / AGITATION; Start 01/17/21 at 16:45 Amlodipine Besylate (Norvasc) 10 mg DAILY PO ; Start 01/18/21 at 09:00 Gabapentin (Neurontin) 300 mg TID PO Last administered on 01/18/21at 08:59; Start 01/17/21 at 21:00 Acetaminophen/ Hydrocodone Bitart (Lortab 5/325) ONE HALF TO ONE TABLET... PRN Q8HRS PRN PO MODERATE TO SEVERE PAIN Last administered on 01/18/21at 08:59; Start 01/17/21 at 17:15 Warfarin Sodium (Coumadin) 5 mg MoTuWeThFrSa PO Last administered on 01/17/21at 22:14; Start 01/17/21 at 16:00 Warfarin Sodium (Coumadin) 7.5 mg QSU PO ; Start 01/19/21 at 16:00 Insulin Glargine (Lantus Syringe) 22 unit QHS SQ Last administered on 01/17/21at 22:23; Start 01/17/21 at 21:00 Insulin Human Lispro (HumaLOG) 10 units TIDWMEALS SQ Last administered on 01/18/21at 08:59; Start 01/18/21 at 08:00 Lactobacillus Rhamnosus (Culturelle) 1 cap DAILY PO Last administered on 01/18/21at 08:59; Start 01/18/21 at 09:00; Stop 01/18/21 at 10:45; Status DC Warfarin Sodium (Coumadin Per Pharmacy) 1 each PRN DAILY PRN MC SEE COMMENTS; Start 01/17/21 at 17:30 Ceftriaxone Sodium (Rocephin) 1 gm Q24H IVP ; Start 01/17/21 at 21:00 Pharmacy Consult (C.diff Med Screen By Rx) 1 each 1X ONCE MC Last administered on 01/17/21at 20:30; Start 01/17/21 at 20:30; Stop 01/17/21 at 20:31; Status DC Zolpidem Tartrate (Ambien) 5 mg PRN QHS PRN PO INSOMNIA; Start 01/17/21 at 21:15 Hydroxyzine HCl (Atarax) 25 mg PRN Q6HRS PRN PO ITCHING; Start 01/17/21 at 21:15 Diphenhydramine HCl (Benadryl) 12.5 mg PRN Q6HRS PRN PO ITCHING; Start 01/17/21 at 21:15; Stop 01/17/21 at 21:33; Status DC Insulin Human Lispro (HumaLOG) 0-7 UNITS QIDACHS SQ ; Start 01/18/21 at 07:30 Dextrose (Dextrose 50%-Water Syringe) 12.5 gm PRN Q15MIN PRN IV SEE COMMENTS; Start 01/17/21 at 21:15 Insulin Human Lispro (HumaLOG) 12 units 1X ONCE SQ Last administered on 01/17/21at 22:24; Start 01/17/21 at 21:30; Stop 01/17/21 at 21:31; Status DC Neomycin/ Polymyxin/ Bacitracin (Triple Antibiotic Ointment) 1 pkt DAILY TP Last administered on 01/18/21at 08:59; Start 01/17/21 at 22:00 Diphenhydramine HCl (Benadryl Oral Elixir) 12.5 mg PRN Q6HRS PRN PO ITCHING Last administered on 01/17/21at 22:13; Start 01/17/21 at 21:45 Lactobacillus Rhamnosus (Culturelle) 1 cap BID PO ; Start 01/18/21 at 21:00 Active Scripts Active Hydrocodone-Acetamin 5-325 mg (Hydrocodone/Acetaminophen) 1 Each Tablet 0.5-1 Each PO Q4-6HRS PRN Gabapentin 300 Mg Capsule 300 Mg PO TID MDD 1 Amlodipine Besylate 10 Mg Tablet 10 Mg PO DAILY MDD 1 Reported Neosporin Ointment (Neomy Sulf/Bacitrac Zn/Poly) 28.3 Gm Oint...g. 28.3 Gm TP DAILY Culturelle (Lactobacillus Rhamnosus Gg) 1 Each Capsule 1 Cap PO DAILY 7 Days Humalog (Insulin Lispro) 100 Unit/1 Ml Cartridge 10 Unit SQ TIDWMEALS Lantus Solostar (Insulin Glargine,Hum.rec.anlog) 100 Unit/1 Ml Insuln.pen 18 Unit SQ QHS Warfarin Sodium 5 Mg Tablet 2 Tab PO QFRSUN Warfarin Sodium 5 Mg Tablet 1 Tab PO QMTUWTHSA Allergies Allergies: Coded Allergies: prednisone (Verified Allergy, Intermediate, 10/04/19) PT STATES LEG BECAME SWOLLEN FROM TAKING AND GOT A BLOOD CLOT ROS General: YES: Fatigue, Appetite PSYCHOLOGICAL ROS: YES: Anxiety, Depression Eyes: Yes Decreased vision HEENT: YES: Heacaches Respiratory: YES: Cough Gastrointestinal: Yes Constipation Genitourinary: YES Other (ANURIA) Musculoskeletal: Yes Muscular Weakness Neurological: Yes Weakness Skin: Yes Dry Skin Physical Exam General: Alert, Oriented X3, Cooperative, No acute distress HEENT: Atraumatic Lungs: Clear to auscultation Heart: Regular rate Abdomen: Normal bowel sounds, Soft, No tenderness Extremities: No cyanosis Skin: No breakdown Neuro: Normal speech, Cranial nerves 3-12 NL Psych/Mental Status: Mental status NL, Mood NL MUSCULOSKELETAL: No joint tenderness, No deformity, No swelling Vitals VITALS Vital Signs Date Time Temp Pulse Resp B/P (MAP) Pulse Ox O2 Delivery O2 Flow Rate FiO2 01/18/21 11:00 97.5 74 18 126/66 (86) 98 Room Air 97.5 Labs Labs Laboratory Tests Test 01/17/21 14:00 01/17/21 21:08 01/18/21 00:52 01/18/21 07:58 White Blood Count 4.5 x10^3/uL (4.0-11.0) Red Blood Count 3.60 x10^6/uL (4.30-5.70) Hemoglobin 10.1 g/dL (13.0-17.5) Hematocrit 30.9 % (39.0-53.0) Mean Corpuscular Volume 86 fL (79-100) Mean Corpuscular Hemoglobin 28 pg (25-35) Mean Corpuscular Hemoglobin Concent 33 g/dL (31-37) Red Cell Distribution Width 13.6 % (11.5-14.5) Platelet Count 174 x10^3/uL (140-400) Neutrophils (%) (Auto) 65 % (31-73) Lymphocytes (%) (Auto) 17 % (24-48) Monocytes (%) (Auto) 13 % (0-9) Eosinophils (%) (Auto) 5 % (0-3) Basophils (%) (Auto) 1 % (0-3) Neutrophils # (Auto) 2.9 x10^3/uL (1.8-7.7) Lymphocytes # (Auto) 0.8 x10^3/uL (1.0-4.8) Monocytes # (Auto) 0.6 x10^3/uL (0.0-1.1) Eosinophils # (Auto) 0.2 x10^3/uL (0.0-0.7) Basophils # (Auto) 0.0 x10^3/uL (0.0-0.2) Prothrombin Time 26.3 SEC (11.7-14.0) Prothromb Time International Ratio 2.4 (0.8-1.1) Sodium Level 139 mmol/L (136-145) Potassium Level 4.9 mmol/L (3.5-5.1) Chloride Level 100 mmol/L (98-107) Carbon Dioxide Level 28 mmol/L (21-32) Anion Gap 11 (6-14) Blood Urea Nitrogen 54 mg/dL (8-26) Creatinine 8.9 mg/dL (0.7-1.3) Estimated GFR (Cockcroft-Gault) 7.3 BUN/Creatinine Ratio 6 (6-20) Glucose Level 254 mg/dL (70-99) Calcium Level 9.7 mg/dL (8.5-10.1) Magnesium Level 2.2 mg/dL (1.8-2.4) Total Bilirubin 0.2 mg/dL (0.2-1.0) Aspartate Amino Transf (AST/SGOT) 17 U/L (15-37) Alanine Aminotransferase (ALT/SGPT) 16 U/L (16-63) Alkaline Phosphatase 80 U/L (46-116) Troponin I Quantitative < 0.017 ng/mL (0.000-0.055) Total Protein 6.9 g/dL (6.4-8.2) Albumin 3.1 g/dL (3.4-5.0) Albumin/Globulin Ratio 0.8 (1.0-1.7) Glucose (Fingerstick) 402 mg/dL (70-99) 114 mg/dL (70-99) 123 mg/dL (70-99) Test 01/18/21 11:52 Glucose (Fingerstick) 68 mg/dL (70-99) Laboratory Tests Test 01/17/21 14:00 01/17/21 21:08 01/18/21 00:52 01/18/21 07:58 White Blood Count 4.5 x10^3/uL (4.0-11.0) Red Blood Count 3.60 x10^6/uL (4.30-5.70) Hemoglobin 10.1 g/dL (13.0-17.5) Hematocrit 30.9 % (39.0-53.0) Mean Corpuscular Volume 86 fL (79-100) Mean Corpuscular Hemoglobin 28 pg (25-35) Mean Corpuscular Hemoglobin Concent 33 g/dL (31-37) Red Cell Distribution Width 13.6 % (11.5-14.5) Platelet Count 174 x10^3/uL (140-400) Neutrophils (%) (Auto) 65 % (31-73) Lymphocytes (%) (Auto) 17 % (24-48) Monocytes (%) (Auto) 13 % (0-9) Eosinophils (%) (Auto) 5 % (0-3) Basophils (%) (Auto) 1 % (0-3) Neutrophils # (Auto) 2.9 x10^3/uL (1.8-7.7) Lymphocytes # (Auto) 0.8 x10^3/uL (1.0-4.8) Monocytes # (Auto) 0.6 x10^3/uL (0.0-1.1) Eosinophils # (Auto) 0.2 x10^3/uL (0.0-0.7) Basophils # (Auto) 0.0 x10^3/uL (0.0-0.2) Prothrombin Time 26.3 SEC (11.7-14.0) Prothromb Time International Ratio 2.4 (0.8-1.1) Sodium Level 139 mmol/L (136-145) Potassium Level 4.9 mmol/L (3.5-5.1) Chloride Level 100 mmol/L (98-107) Carbon Dioxide Level 28 mmol/L (21-32) Anion Gap 11 (6-14) Blood Urea Nitrogen 54 mg/dL (8-26) Creatinine 8.9 mg/dL (0.7-1.3) Estimated GFR (Cockcroft-Gault) 7.3 BUN/Creatinine Ratio 6 (6-20) Glucose Level 254 mg/dL (70-99) Calcium Level 9.7 mg/dL (8.5-10.1) Magnesium Level 2.2 mg/dL (1.8-2.4) Total Bilirubin 0.2 mg/dL (0.2-1.0) Aspartate Amino Transf (AST/SGOT) 17 U/L (15-37) Alanine Aminotransferase (ALT/SGPT) 16 U/L (16-63) Alkaline Phosphatase 80 U/L (46-116) Troponin I Quantitative < 0.017 ng/mL (0.000-0.055) Total Protein 6.9 g/dL (6.4-8.2) Albumin 3.1 g/dL (3.4-5.0) Albumin/Globulin Ratio 0.8 (1.0-1.7) Glucose (Fingerstick) 402 mg/dL (70-99) 114 mg/dL (70-99) 123 mg/dL (70-99) Test 01/18/21 11:52 Glucose (Fingerstick) 68 mg/dL (70-99) Assessment/Plan Assessment/Plan IMP WEAKNESS ESRD ANEMIA DM II HTN PAD R FOOT WOUND SUBSTANCE ABUSE HX NEUROPATHY PLAN HD TODAY UF TO TW HD MWF ENC COMPLIANCE HOLD MIKEY WILL FOLLOW MARTINEZ JENSEN MD Jan 18, 2021 12:58
[2021-01-18] MEDS ORDERED: ALBUMIN HUMAN 25% 200 ML IV PRN (13:00)
[2021-01-18] MEDS ORDERED: IV NORMAL SALINE 1000ML BAG 1,000 ML IV PRN ×2 (13:00)
[2021-01-18] MEDS ORDERED: diphenhydrAMINE 50 MG/ML VIAL IV PRN ×2 (13:00)
[2021-01-18] MEDS ORDERED: LIDOCAINE 1% PF 2 ML VIAL. INJ PRN (13:00)
[2021-01-18 14:13] LABS: BASO % 1 % (0-3); EOS # 0.2 x10^3/uL (0.0-0.7); EOS % 5 % (0-3); HEMATOCRIT 28.1 % (39.0-53.0); HEMOGLOBIN 9.3 g/dL (13.0-17.5); LYMPH # 0.7 x10^3/uL (1.0-4.8); LYMPH % 13 % (24-48); MEAN CORPUSCULAR HEMOGLOBIN 28 pg (25-35); MEAN CORPUSCULAR HGB CONC 33 g/dL (31-37); MEAN CORPUSCULAR VOLUME 85 fL (79-100); MONO # 0.4 x10^3/uL (0.0-1.1); MONO % 9 % (0-9); NEUT # 3.7 x10^3/uL (1.8-7.7); NEUT % 73 % (31-73); PLATELET COUNT 193 x10^3/uL (140-400); RED BLOOD COUNT 3.32 x10^6/uL (4.30-5.70); RED CELL DISTRIBUTION WIDTH 13.4 % (11.5-14.5); WHITE BLOOD COUNT 5.1 x10^3/uL (4.0-11.0)
[2021-01-18] MEDS ORDERED: DIALYSIS PATIENT. MC PRN ×2 (14:15)
[2021-01-18 14:23] LABS: ALBUMIN 2.6 g/dL (3.4-5.0); CALCIUM 8.5 mg/dL (8.5-10.1); CREATININE 7.1 mg/dL (0.7-1.3); GFR 9.5; PHOSPHORUS 3.9 mg/dL (2.6-4.7); POTASSIUM 3.9 mmol/L (3.5-5.1)
--- NOTE | 2021-01-18 16:07 | CONS ---
DATE OF CONSULTATION: 01/17/2021 VASCULAR SURGERY CONSULTATION CLINICAL HISTORY: This is a 65-year-old diabetic with end-stage renal disease, who we have been asked to evaluate his right forefoot. He has developed superficial ulcers on the 2nd through the 4th toes. He had arterial duplex imaging, which does not indicate that there is significant occlusive disease. He had a plain x-ray of the foot, which does not show definite evidence of osteomyelitis. He is unclear as far as how long he has had these wounds. PAST MEDICAL HISTORY: Significant for diabetes, poorly controlled; end-stage renal disease, requiring hemodialysis. He has a functioning right upper arm shunt. Other past medical history includes cancer, history of deep vein thrombosis, ulcerative colitis and colon cancer. PAST SURGICAL HISTORY: Includes colon resection, peritoneal dialysis catheter and AV graft, right upper arm. MEDICATIONS: Reviewed. REVIEW OF SYSTEMS: Twelve-point review of systems: He does not complain of pain, shortness of breath. He is ambulatory. Otherwise, 12-point review of systems is unremarkable. PHYSICAL EXAMINATION: GENERAL: The patient is alert and awake. NECK: Supple.: Carotids are 2+. There are no carotid bruits. MUSCULOSKELETAL: 2+ palpable femoral and popliteal pulses, absent pedal pulses. Both feet are quite dry and scaly. There are some superficial ulcerative changes about the right forefoot predominantly right second toe, dorsal aspects. No evidence of joint involvement. LABORATORY DATA: White count is 4.5 thousand. IMPRESSION: 1. Perhaps mild arterial insufficiency of the small vessels in the right forefoot. 2. Diabetes. 3. End-stage renal disease. RECOMMENDATIONS: 1. The patient prefers conservative therapy for now. We will consult [facility] and continue IV antibiotics and observation. 2. We will follow as needed. MARYURI GRAHAM MD DR: MARTA/ran JOB#: [id number] / [id number]
--- NOTE | 2021-01-18 16:11 | PDOC ---
Infectious Disease Note Vital Sign Vital Signs Vital Signs Date Time Temp Pulse Resp B/P (MAP) Pulse Ox O2 Delivery O2 Flow Rate FiO2 01/18/21 11:00 97.5 74 18 126/66 (86) 98 Room Air 97.5 Physical Exam PHYSICAL EXAM Labs Lab Laboratory Tests Test 01/17/21 21:08 01/18/21 00:52 01/18/21 07:58 01/18/21 11:52 Glucose (Fingerstick) 402 mg/dL (70-99) 114 mg/dL (70-99) 123 mg/dL (70-99) 68 mg/dL (70-99) Test 01/18/21 14:00 White Blood Count 5.1 x10^3/uL (4.0-11.0) Red Blood Count 3.32 x10^6/uL (4.30-5.70) Hemoglobin 9.3 g/dL (13.0-17.5) Hematocrit 28.1 % (39.0-53.0) Mean Corpuscular Volume 85 fL (79-100) Mean Corpuscular Hemoglobin 28 pg (25-35) Mean Corpuscular Hemoglobin Concent 33 g/dL (31-37) Red Cell Distribution Width 13.4 % (11.5-14.5) Platelet Count 193 x10^3/uL (140-400) Neutrophils (%) (Auto) 73 % (31-73) Lymphocytes (%) (Auto) 13 % (24-48) Monocytes (%) (Auto) 9 % (0-9) Eosinophils (%) (Auto) 5 % (0-3) Basophils (%) (Auto) 1 % (0-3) Neutrophils # (Auto) 3.7 x10^3/uL (1.8-7.7) Lymphocytes # (Auto) 0.7 x10^3/uL (1.0-4.8) Monocytes # (Auto) 0.4 x10^3/uL (0.0-1.1) Eosinophils # (Auto) 0.2 x10^3/uL (0.0-0.7) Basophils # (Auto) 0.0 x10^3/uL (0.0-0.2) Sodium Level 139 mmol/L (136-145) Potassium Level 3.9 mmol/L (3.5-5.1) Chloride Level 101 mmol/L (98-107) Carbon Dioxide Level 27 mmol/L (21-32) Anion Gap 11 (6-14) Blood Urea Nitrogen 44 mg/dL (8-26) Creatinine 7.1 mg/dL (0.7-1.3) Estimated GFR (Cockcroft-Gault) 9.5 Glucose Level 137 mg/dL (70-99) Calcium Level 8.5 mg/dL (8.5-10.1) Phosphorus Level 3.9 mg/dL (2.6-4.7) Albumin 2.6 g/dL (3.4-5.0) Objective Assessment Right foot wounds CKD/HD Diabetes A-fib, warfarin Plan Plan of Care Patient is currently diaylzing. He did not want to answer any questions or allow the dressing off at this time. In review of the records/pictures, recommend switching Rocephin to merrem and vanc per Dr. Todd. Vascular consulted. Will see him again tomorrow Thank you BRIAN ARROYO APRN Jan 18, 2021 16:11
[2021-01-18] MEDS ORDERED: VANCOMYCIN 2 GM in IV NORMAL SALINE 500ML BAG 500 ML IV ONE (17:00)
[2021-01-18 19:00] VITALS: BP 137/63
[2021-01-18] MEDS: WARFARIN 5 MG TABLET. PO SCH (19:38)
--- NOTE | 2021-01-18 20:06 | NUR ---
The patient underwent hemodialysis today. He came back to the unit at 1830, VSS. He's alert, awake, oriented x4 on room air. Peripheral IV inserted, call light placed within reach.
[2021-01-18] MEDS: MEROPENEM 500 MG in IV NORMAL SALINE 50ML 50 ML IV SCH (20:21)
--- NOTE | 2021-01-18 20:22 | NUR ---
The patient's prelunch blood glucose was 68 mg/dl. He was awake, alert, oriented x 4. Hypoglycemia protocol initiated.
[2021-01-18] MEDS: diphenhydrAMINE ORAL ELIXIR 12.5 MG/5 ML ML PO PRN (21:37)
[2021-01-18] MEDS: ZOLPIDEM 5 MG TABLET. PO PRN (21:37)
[2021-01-18] MEDS: LACTOBACILLUS RHAMNOSUS GG 1 CAPSULE. PO SCH (21:38)
[2021-01-18] MEDS: INSULIN GLARGINE SYRINGE. SQ SCH (21:46)
[2021-01-18 23:00] VITALS: BP 124/62
[2021-01-19 03:00] VITALS: BP 122/74
[2021-01-19] MEDS: VANCOMYCIN PER PHARMACY MC PRN ×2 (03:33→03:35)
--- NOTE | 2021-01-19 03:35 | NUR ---
Pharmacy Vancomycin Dosing Note S:Consulted to monitor and dose vancomycin started 01/18/21. O:UMER VANCE is a 65 year old M with FOOT WOUND . Height: 6 feet, 0 inches Weight: 89.2 kg [place] Body Weight: 77.60 Adjusted Body Weight: 82.24 Dosing Weight: Actual Other Antibiotics: LABS: Last BUN: 44 Last Creatinine: 7.1 Creatinine Clearance: HD mL/min Last WBC: 5.1 Last Procalcitonin: Tmax (past 24 hours): Microbiology: I/O: Drug Levels: Last level: on at Last dose given 01/18/21 at 2137 Vancomycin Dosing: Loading Dose: 2000 mg x1 Dosing Weight: Actual Target Trough: 10-20 A: Based on: WT AND DIALYSIS P: 1. Begin Vancomycin IV Dose Per Levels 2. Follow up Random level on 01/20/21 at 0600 3. Pharmacy will continue to monitor, follow and adjust therapy as needed. KARMEN ESPITIA RPH, [id number] Signed: 01/19/21 at 335 by KARMEN ESPITIA RPH PHA
[2021-01-19 07:00] VITALS: BP 134/73
[2021-01-19] MEDS: INSULIN LISPRO 300 UNITS/3 ML VIAL. SQ SCH ×7 (07:30→21:00)
[2021-01-19] MEDS: GABAPENTIN 300 MG CAPSULE. PO SCH ×3 (08:56→22:01)
[2021-01-19] MEDS: HYDROcodone/APAP 5/325MG 1 TAB TABLET PO PRN ×2 (08:57→17:38)
[2021-01-19] MEDS: amLODIPine BESYLATE 10 MG TABLET PO SCH (08:57)
[2021-01-19] MEDS: LACTOBACILLUS RHAMNOSUS GG 1 CAPSULE. PO SCH ×2 (08:57→22:01)
[2021-01-19] MEDS: NEOMY/BACITR/POLYMYXIN OINT PACKET. TP SCH (08:58)
[2021-01-19 09:24] LABS: BASO # 0.1 x10^3/uL (0.0-0.2); BASO % 1 % (0-3); EOS # 0.3 x10^3/uL (0.0-0.7); EOS % 5 % (0-3); HEMOGLOBIN 9.5 g/dL (13.0-17.5); LYMPH # 0.8 x10^3/uL (1.0-4.8); LYMPH % 15 % (24-48); MEAN CORPUSCULAR HEMOGLOBIN 28 pg (25-35); MEAN CORPUSCULAR HGB CONC 33 g/dL (31-37); MEAN CORPUSCULAR VOLUME 85 fL (79-100); MONO # 0.6 x10^3/uL (0.0-1.1); MONO % 11 % (0-9); NEUT % 69 % (31-73); PLATELET COUNT 178 x10^3/uL (140-400); RED CELL DISTRIBUTION WIDTH 13.6 % (11.5-14.5); WHITE BLOOD COUNT 5.8 x10^3/uL (4.0-11.0)
[2021-01-19 09:38] LABS: PROTHROMBIN TIME PATIENT 30.8 SEC (11.7-14.0)
[2021-01-19 09:54] LABS: ALBUMIN 2.6 g/dL (3.4-5.0); ALBUMIN/GLOBULIN RATIO 0.7 (1.0-1.7); CALCIUM 8.6 mg/dL (8.5-10.1); CREATININE 6.3 mg/dL (0.7-1.3); GFR 10.8; TOTAL BILIRUBIN 0.2 mg/dL (0.2-1.0); TOTAL PROTEIN 6.6 g/dL (6.4-8.2)
--- NOTE | 2021-01-19 10:12 | PDOC ---
PROGRESS NOTES Date of Service: DATE: 01/19/21 TIME: 10:12 Chief Complaint Chief Complaint DICTATED and SIGNED BY: KIESHA FORMAN MD DATE: 01/17/21 [id number] VTE Prophylaxis Ordered VTE Prophylaxis Devices: Yes VTE Pharmacological Prophylaxi: Yes Assessment/Plan Assessment/Plan IMPRESSION: NONCOMPLIANCE WITH DIALYSIS ACUTE Left arm, hand paresthesia POLYSUBSTANCE ABUSE right foot wounds No acute intracranial finding. ON CT HEAD MRI is more sensitive for acute infarction. Bilateral cerebral white matter changes, likely due to chronic small vessel disease. Weakness - likely from electrolyte abnormalities ESRD on HD MWF - COPD - historical, prn nebs Chronic diarrhea - Bilateral leg pain -diabetic neuropathy Ulcerative colitis - s/p colon resection Diabetes mellitus - will restart insulin Peripheral neuropathy - gabapentin renal dosing Hypertension - cont amlodipine History of DVT, on warfarin therapy History of colorectal cancer - s/p resection Subtotal colectomy. Ileoanal J- pouch H/o hepatitis C - in SVR Osteoarthritis - tylenol prn Anemia - of chronic renal disease. HX COCAINE ABUSE Elevated peak systolic velocity within the proximal left superficial femoral artery suggesting moderate to severe stenosis. There is also an elevated peak systolic velocity within the mid right superficial femoral artery suggesting mild stenosis./ PVD Abnormal waveform within the right dorsalis pedis artery suggesting hemodynamically significant proximal stenosis. No evidence of arterial occlusion. Extensive vascular calcifications. of right foot PLAN ADMIT NEPHROLOGY CONSULT HD TOMORROW 4-26 x ray right foot 3 VIEWS ID CONSULT NEUROCHECKS Q 4 HRS WOUND CARE NURSE CONSULT IV ROCEPHIN 1 GM Q 24 HRS change to merrem and vanc per Dr. Todd. CULTURE RIGHT FOOT WOUNDS pending sensitivities BLOOD CULTURE NEPHROLOGY CONSULT DVT PROPHYLAXIS ON COUMADIN vascular surgery consult 38 MIN PT EXAM, CHART REVIEW, > 50% of time spent with exam, chart review, pt care coordination D/W ER DR Justifications for Admission Other Justification History of Present Illness History of Present Illness Identification/Chief Complaint Chief Complaint MISSED DIALYSIS, weak, left hand numbness RIGHT FOOT WOUNDS History of Present Illness History of Present Illness Mr Vance is a 65yo M w/ PMHx ESRD, complicated grief, DM2 who comes to ED c/o weakness and numbness in bilateral hands. Notes he has missed dialysis today, and dialyses MWF [facility] 1 IN ER Weakness - likely from electrolyte abnormalities ESRD on HD MWF - COPD - historical, prn nebs hxChronic diarrhea - Bilateral leg pain -diabetic neuropathy hxUlcerative colitis - s/p colon resection Diabetes mellitus - will restart insulin hx polysubstance abuse He denies any chest pain, palpitations, headache, vision changes, nausea, vomiting, or shortness of breath has long hx noncompliance here, several admits, has right foot wounds as well, new chemical induced Past Medical History Past Medical History Past Medical History: Cancer, Diabetes-Type I, DVT, Renal Failure, Other Additional Past Medical Histor: ulcerative colitis, coloncancer Past Surgical History: Other Additional Past 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, 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 Smoking Status: Current Every Day Smoker Alcohol Use: Rarely Drug Use: None FHX COPD Cardiovascular: HTN Pulmonary: No pertinent hx CENTRAL NERVOUS SYSTEM: Other GI: No pertinent hx Heme/Onc: Anemia NOS, Other Hepatobiliary: Hep A/B/C Psych: No pertinent hx, Addictions Musculoskeletal: Osteoarthritis Rheumatologic: No pertinent hx Infectious disease: HIV Renal/: Chronic renal insuff, Chronic renal failure, Hematuria Endocrine: Diabetes, Hyperparathyroidism Past Surgical History Past Surgical History: Cholecystectomy, Colectomy Family History Family History: No Significant, Diabetes, Hypertension Social History Smoke: <1 pack per day ALCOHOL: occassional Drugs: Cocaine, Crystal meth Current Medications Current Medications Active Scripts Active Hydrocodone-Acetamin 5-325 mg (Hydrocodone/Acetaminophen) 1 Each Tablet 0.5-1 Each PO Q4-6HRS PRN Gabapentin 300 Mg Capsule 300 Mg PO TID MDD 1 Amlodipine Besylate 10 Mg Tablet 10 Mg PO DAILY MDD 1 Reported Culturelle (Lactobacillus Rhamnosus Gg) 1 Each Capsule 1 Cap PO DAILY 7 Days Humalog (Insulin Lispro) 100 Unit/1 Ml Cartridge 10 Unit SQ TIDWMEALS Lantus Solostar (Insulin Glargine,Hum.rec.anlog) 100 Unit/1 Ml Insuln.pen 22 Unit SQ QHS Warfarin Sodium 5 Mg Tablet 1.5 Tab PO QSU Warfarin Sodium 5 Mg Tablet 1 Tab PO [id number] Allergies Allergies: Coded Allergies: prednisone (Verified Allergy, Intermediate, 10/04/19) PT STATES LEG BECAME SWOLLEN FROM TAKING AND GOT A BLOOD CLOT ROS General: YES: Fatigue; No: Chills, Night Sweats, Malaise, Appetite, Other PSYCHOLOGICAL ROS: No: Anxiety, Behavioral Disorder, Concentration difficultie, Decreased libido, Depression, Disorientation, Hallucinations, Hostility, Irritablity, Memory difficulties, Mood Swings, Obsessive thoughts, Physical abuse, Sexual abuse, Sleep disturbances, Suicidal ideation, Other Eyes: No Blurry vision, No Decreased vision, No Double vision, No Dry eyes, No Excessive tearing, No Eye Pain, No Itchy Eyes, No Loss of vision, No Photophobia, No Scotomata, No Uses contacts, No Uses glasses, No Other HEENT: No: Heacaches, Visual Changes, Hearing change, Nasal congestion, Nasal discharge, Oral lesions, Sinus pain, Sore Throat, Epistaxis, Sneezing, Snoring, Tinnitus, Vertigo, Vocal changes, Other ALLERGY AND IMMUNOLOGY: No: Hives, Insect Bite Sensitivity, Itchy/Watery Eyes, Nasal Congestion, Post Nasal Drip, Seasonal Allergies, Other Hematological and Lymphatic: No: Bleeding Problems, Blood Clots, Blood Tra nsfusions, Brusing, Night Sweats, Pallor, Swollen Lymph Nodes, Other ENDOCRINE: No: Breast Changes, Galactorrhea, Hair Pattern Changes, Hot Flashes, Malaise/lethargy, Mood Swings, Palpitations, Polydipsia/polyuria, Skin Changes, Temperature Intolerance, Unexpected Weight Changes, Other Breast: No New/Changing Breast Lumps, No Nipple changes, No Nipple discharge, No Other Respiratory: No: Cough, Hemoptysis, Orthopnea, Pleuritic Pain, Shortness of breath, SOB with excertion, Sputum Changes, Stridor, Tachypnea, Wheezing, Other Cardiovascular: No Chest Pain, No Palpitations, No Orthopnea, No Paroxysmal Noc. Dyspnea, No Edema, No Lt Headedness, No Other Gastrointestinal: No Nausea, No Vomiting, No Abdominal Pain, No Diarrhea, No Constipation, No Melena, No Hematochezia, No Other Musculoskeletal: Yes Joint Stiffness, Yes Joint Swelling (r foot ) Neurological: Yes Numbness/Tingling; No Behavorial Changes, No Bowel/Bladder ControlChng, No Confusion, No Dizziness, No Gait Disturbance, No Headaches, No Impaired Coord/balance, No Memory Loss, No Seizures, No Speech Problems, No Tremors, No Visual Changes, No Weakness, No Other Skin: Yes Dry Skin, Yes Rash, Yes Skin Lesion Changes; No Eczema, No Hair Changes, No Lumps, No Mole Changes, No Mottling, No Nail Changes, No Pruritus, No Other, No Acne 4-25 AFEBRILE NEUROCHECKS Q 4 HRS WOUND CARE NURSE CONSULT IV ROCEPHIN 1 GM Q 24 HRS change to merrem and vanc per Dr. Todd. CULTURE RIGHT FOOT WOUNDS pending sensitivities BLOOD CULTURE NEPHROLOGY CONSULT DVT PROPHYLAXIS ON COUMADIN vascular surgery consult reviewed D/W RN feet are quite dry and scaly. superficial ulcerative changes right forefoot // right second toe, dorsal aspects. moderate to severely elevated peak systolic velocity of 281 cm/s within the proximal left superficial femoral artery. Vitals Vitals Vital Signs Date Time Temp Pulse Resp B/P (MAP) Pulse Ox O2 Delivery O2 Flow Rate FiO2 01/19/21 08:57 18 96 Room Air 01/19/21 08:57 87 134/73 01/19/21 07:00 98.3 98.3 Physical Exam Physical Exam General: Alert, Oriented X3, Cooperative, No acute distress Heart: Regular rate Lungs: Clear Abdomen: Normal bowel sounds, Soft, No tenderness, Other (mild edema) Extremities: No cyanosis Skin: No breakdown, Other (right foot/ toes skin loss see photograph) Labs LABS PATIENT: UMER VANCE ACCOUNT: [id number] : 1955 LOCATION: [address] [place] [address] AGE: 65 SEX: M EXAM STATUS: ADM IN ORD. PHYSICIAN: KACI SANDERS MD REASON: PVD WOUNDS PROCEDURE: DUPLEX LOWER EXTREMITY BILAT EXAM: Bilateral lower extremity arterial Doppler sonogram. HISTORY: Bilateral lower extremity wounds. Peripheral vascular disease. TECHNIQUE: Wilcox scale and color Doppler sonographic imaging of the lower extremity arteries with spectral waveform analysis was performed. COMPARISON: None. FINDINGS: There are biphasic and triphasic waveforms throughout the bilateral lower extremity arteries, with exception of a monophasic waveform within the right dorsalis pedis artery suggesting hemodynamically significant proximal st enosis. There is a mildly elevated peak systolic velocity of 152 cm/s within the mid right superficial femoral artery. There is a moderate to severely elevated peak systolic velocity of 281 cm/s within the proximal left superficial femoral artery. IMPRESSION: 1. Elevated peak systolic velocity within the proximal left superficial femoral artery suggesting moderate to severe stenosis. There is also an elevated peak systolic velocity within the mid right superficial femoral artery suggesting mild stenosis. 2. Abnormal waveform within the right dorsalis pedis artery suggesting hemodynamically significant proximal stenosis. 3. No evidence of arterial occlusion. Electronically signed by: Kiesha Forman MD (01/18/2021 7:09 AM) [id number] DICTATED and SIGNED BY: KIESHA FORMAN MD DATE: 01/18/21 [id number] 0 Procedure Result GRAM STAIN Final Final NO ORGANISMS SEEN. SQUAMOUS EPI CELL:RARE PMN (WBCs):NONE SEEN Unless otherwise specified, Testing Performed by: [address] [address] For Inquires, the Physician may contact the Microbiology department at [phone] ANAEROBIC-AEROBIC CULTURE PENDING Laboratory Tests Test 01/18/21 11:52 01/18/21 14:00 01/18/21 19:22 01/18/21 21:43 Glucose (Fingerstick) 68 mg/dL (70-99) 333 mg/dL (70-99) 189 mg/dL (70-99) White Blood Count 5.1 x10^3/uL (4.0-11.0) Red Blood Count 3.32 x10^6/uL (4.30-5.70) Hemoglobin 9.3 g/dL (13.0-17.5) Hematocrit 28.1 % (39.0-53.0) Mean Corpuscular Volume 85 fL (79-100) Mean Corpuscular Hemoglobin 28 pg (25-35) Mean Corpuscular Hemoglobin Concent 33 g/dL (31-37) Red Cell Distribution Width 13.4 % (11.5-14.5) Platelet Count 193 x10^3/uL (140-400) Neutrophils (%) (Auto) 73 % (31-73) Lymphocytes (%) (Auto) 13 % (24-48) Monocytes (%) (Auto) 9 % (0-9) Eosinophils (%) (Auto) 5 % (0-3) Basophils (%) (Auto) 1 % (0-3) Neutrophils # (Auto) 3.7 x10^3/uL (1.8-7.7) Lymphocytes # (Auto) 0.7 x10^3/uL (1.0-4.8) Monocytes # (Auto) 0.4 x10^3/uL (0.0-1.1) Eosinophils # (Auto) 0.2 x10^3/uL (0.0-0.7) Basophils # (Auto) 0.0 x10^3/uL (0.0-0.2) Sodium Level 139 mmol/L (136-145) Potassium Level 3.9 mmol/L (3.5-5.1) Chloride Level 101 mmol/L (98-107) Carbon Dioxide Level 27 mmol/L (21-32) Anion Gap 11 (6-14) Blood Urea Nitrogen 44 mg/dL (8-26) Creatinine 7.1 mg/dL (0.7-1.3) Estimated GFR (Cockcroft-Gault) 9.5 Glucose Level 137 mg/dL (70-99) Calcium Level 8.5 mg/dL (8.5-10.1) Phosphorus Level 3.9 mg/dL (2.6-4.7) Albumin 2.6 g/dL (3.4-5.0) Test 01/19/21 07:21 01/19/21 09:05 Glucose (Fingerstick) 108 mg/dL (70-99) White Blood Count 5.8 x10^3/uL (4.0-11.0) Red Blood Count 3.40 x10^6/uL (4.30-5.70) Hemoglobin 9.5 g/dL (13.0-17.5) Hematocrit 29.0 % (39.0-53.0) Mean Corpuscular Volume 85 fL (79-100) Mean Corpuscular Hemoglobin 28 pg (25-35) Mean Corpuscular Hemoglobin Concent 33 g/dL (31-37) Red Cell Distribution Width 13.6 % (11.5-14.5) Platelet Count 178 x10^3/uL (140-400) Neutrophils (%) (Auto) 69 % (31-73) Lymphocytes (%) (Auto) 15 % (24-48) Monocytes (%) (Auto) 11 % (0-9) Eosinophils (%) (Auto) 5 % (0-3) Basophils (%) (Auto) 1 % (0-3) Neutrophils # (Auto) 4.0 x10^3/uL (1.8-7.7) Lymphocytes # (Auto) 0.8 x10^3/uL (1.0-4.8) Monocytes # (Auto) 0.6 x10^3/uL (0.0-1.1) Eosinophils # (Auto) 0.3 x10^3/uL (0.0-0.7) Basophils # (Auto) 0.1 x10^3/uL (0.0-0.2) Prothrombin Time 30.8 SEC (11.7-14.0) Prothromb Time International Ratio 2.9 (0.8-1.1) Sodium Level 142 mmol/L (136-145) Potassium Level 5.0 mmol/L (3.5-5.1) Chloride Level 104 mmol/L (98-107) Carbon Dioxide Level 28 mmol/L (21-32) Anion Gap 10 (6-14) Blood Urea Nitrogen 37 mg/dL (8-26) Creatinine 6.3 mg/dL (0.7-1.3) Estimated GFR (Cockcroft-Gault) 10.8 BUN/Creatinine Ratio 6 (6-20) Glucose Level 135 mg/dL (70-99) Calcium Level 8.6 mg/dL (8.5-10.1) Total Bilirubin 0.2 mg/dL (0.2-1.0) Aspartate Amino Transf (AST/SGOT) 14 U/L (15-37) Alanine Aminotransferase (ALT/SGPT) 16 U/L (16-63) Alkaline Phosphatase 70 U/L (46-116) Total Protein 6.6 g/dL (6.4-8.2) Albumin 2.6 g/dL (3.4-5.0) Albumin/Globulin Ratio 0.7 (1.0-1.7) Assessment and Plan Assessmemt and Plan Problems Medical Problems: (1) Paresthesia Status: Acute Comment Review of Relevant I have reviewed the following items keron (where applicable) has been applied. Labs Laboratory Tests Test 01/17/21 14:00 01/17/21 21:08 01/18/21 00:52 01/18/21 07:58 White Blood Count 4.5 x10^3/uL (4.0-11.0) Red Blood Count 3.60 x10^6/uL (4.30-5.70) Hemoglobin 10.1 g/dL (13.0-17.5) Hematocrit 30.9 % (39.0-53.0) Mean Corpuscular Volume 86 fL (79-100) Mean Corpuscular Hemoglobin 28 pg (25-35) Mean Corpuscular Hemoglobin Concent 33 g/dL (31-37) Red Cell Distribution Width 13.6 % (11.5-14.5) Platelet Count 174 x10^3/uL (140-400) Neutrophils (%) (Auto) 65 % (31-73) Lymphocytes (%) (Auto) 17 % (24-48) Monocytes (%) (Auto) 13 % (0-9) Eosinophils (%) (Auto) 5 % (0-3) Basophils (%) (Auto) 1 % (0-3) Neutrophils # (Auto) 2.9 x10^3/uL (1.8-7.7) Lymphocytes # (Auto) 0.8 x10^3/uL (1.0-4.8) Monocytes # (Auto) 0.6 x10^3/uL (0.0-1.1) Eosinophils # (Auto) 0.2 x10^3/uL (0.0-0.7) Basophils # (Auto) 0.0 x10^3/uL (0.0-0.2) Prothrombin Time 26.3 SEC (11.7-14.0) Prothromb Time International Ratio 2.4 (0.8-1.1) Sodium Level 139 mmol/L (136-145) Potassium Level 4.9 mmol/L (3.5-5.1) Chloride Level 100 mmol/L (98-107) Carbon Dioxide Level 28 mmol/L (21-32) Anion Gap 11 (6-14) Blood Urea Nitrogen 54 mg/dL (8-26) Creatinine 8.9 mg/dL (0.7-1.3) Estimated GFR (Cockcroft-Gault) 7.3 BUN/Creatinine Ratio 6 (6-20) Glucose Level 254 mg/dL (70-99) Calcium Level 9.7 mg/dL (8.5-10.1) Magnesium Level 2.2 mg/dL (1.8-2.4) Total Bilirubin 0.2 mg/dL (0.2-1.0) Aspartate Amino Transf (AST/SGOT) 17 U/L (15-37) Alanine Aminotransferase (ALT/SGPT) 16 U/L (16-63) Alkaline Phosphatase 80 U/L (46-116) Troponin I Quantitative < 0.017 ng/mL (0.000-0.055) Total Protein 6.9 g/dL (6.4-8.2) Albumin 3.1 g/dL (3.4-5.0) Albumin/Globulin Ratio 0.8 (1.0-1.7) Glucose (Fingerstick) 402 mg/dL (70-99) 114 mg/dL (70-99) 123 mg/dL (70-99) Test 01/18/21 11:52 01/18/21 14:00 01/18/21 19:22 01/18/21 21:43 Glucose (Fingerstick) 68 mg/dL (70-99) 333 mg/dL (70-99) 189 mg/dL (70-99) White Blood Count 5.1 x10^3/uL (4.0-11.0) Red Blood Count 3.32 x10^6/uL (4.30-5.70) Hemoglobin 9.3 g/dL (13.0-17.5) Hematocrit 28.1 % (39.0-53.0) Mean Corpuscular Volume 85 fL (79-100) Mean Corpuscular Hemoglobin 28 pg (25-35) Mean Corpuscular Hemoglobin Concent 33 g/dL (31-37) Red Cell Distribution Width 13.4 % (11.5-14.5) Platelet Count 193 x10^3/uL (140-400) Neutrophils (%) (Auto) 73 % (31-73) Lymphocytes (%) (Auto) 13 % (24-48) Monocytes (%) (Auto) 9 % (0-9) Eosinophils (%) (Auto) 5 % (0-3) Basophils (%) (Auto) 1 % (0-3) Neutrophils # (Auto) 3.7 x10^3/uL (1.8-7.7) Lymphocytes # (Auto) 0.7 x10^3/uL (1.0-4.8) Monocytes # (Auto) 0.4 x10^3/uL (0.0-1.1) Eosinophils # (Auto) 0.2 x10^3/uL (0.0-0.7) Basophils # (Auto) 0.0 x10^3/uL (0.0-0.2) Sodium Level 139 mmol/L (136-145) Potassium Level 3.9 mmol/L (3.5-5.1) Chloride Level 101 mmol/L (98-107) Carbon Dioxide Level 27 mmol/L (21-32) Anion Gap 11 (6-14) Blood Urea Nitrogen 44 mg/dL (8-26) Creatinine 7.1 mg/dL (0.7-1.3) Estimated GFR (Cockcroft-Gault) 9.5 Glucose Level 137 mg/dL (70-99) Calcium Level 8.5 mg/dL (8.5-10.1) Phosphorus Level 3.9 mg/dL (2.6-4.7) Albumin 2.6 g/dL (3.4-5.0) Test 01/19/21 07:21 01/19/21 09:05 Glucose (Fingerstick) 108 mg/dL (70-99) White Blood Count 5.8 x10^3/uL (4.0-11.0) Red Blood Count 3.40 x10^6/uL (4.30-5.70) Hemoglobin 9.5 g/dL (13.0-17.5) Hematocrit 29.0 % (39.0-53.0) Mean Corpuscular Volume 85 fL (79-100) Mean Corpuscular Hemoglobin 28 pg (25-35) Mean Corpuscular Hemoglobin Concent 33 g/dL (31-37) Red Cell Distribution Width 13.6 % (11.5-14.5) Platelet Count 178 x10^3/uL (140-400) Neutrophils (%) (Auto) 69 % (31-73) Lymphocytes (%) (Auto) 15 % (24-48) Monocytes (%) (Auto) 11 % (0-9) Eosinophils (%) (Auto) 5 % (0-3) Basophils (%) (Auto) 1 % (0-3) Neutrophils # (Auto) 4.0 x10^3/uL (1.8-7.7) Lymphocytes # (Auto) 0.8 x10^3/uL (1.0-4.8) Monocytes # (Auto) 0.6 x10^3/uL (0.0-1.1) Eosinophils # (Auto) 0.3 x10^3/uL (0.0-0.7) Basophils # (Auto) 0.1 x10^3/uL (0.0-0.2) Prothrombin Time 30.8 SEC (11.7-14.0) Prothromb Time International Ratio 2.9 (0.8-1.1) Sodium Level 142 mmol/L (136-145) Potassium Level 5.0 mmol/L (3.5-5.1) Chloride Level 104 mmol/L (98-107) Carbon Dioxide Level 28 mmol/L (21-32) Anion Gap 10 (6-14) Blood Urea Nitrogen 37 mg/dL (8-26) Creatinine 6.3 mg/dL (0.7-1.3) Estimated GFR (Cockcroft-Gault) 10.8 BUN/Creatinine Ratio 6 (6-20) Glucose Level 135 mg/dL (70-99) Calcium Level 8.6 mg/dL (8.5-10.1) Total Bilirubin 0.2 mg/dL (0.2-1.0) Aspartate Amino Transf (AST/SGOT) 14 U/L (15-37) Alanine Aminotransferase (ALT/SGPT) 16 U/L (16-63) Alkaline Phosphatase 70 U/L (46-116) Total Protein 6.6 g/dL (6.4-8.2) Albumin 2.6 g/dL (3.4-5.0) Albumin/Globulin Ratio 0.7 (1.0-1.7) Laboratory Tests Test 01/18/21 11:52 01/18/21 14:00 01/18/21 19:22 01/18/21 21:43 Glucose (Fingerstick) 68 mg/dL (70-99) 333 mg/dL (70-99) 189 mg/dL (70-99) White Blood Count 5.1 x10^3/uL (4.0-11.0) Red Blood Count 3.32 x10^6/uL (4.30-5.70) Hemoglobin 9.3 g/dL (13.0-17.5) Hematocrit 28.1 % (39.0-53.0) Mean Corpuscular Volume 85 fL (79-100) Mean Corpuscular Hemoglobin 28 pg (25-35) Mean Corpuscular Hemoglobin Concent 33 g/dL (31-37) Red Cell Distribution Width 13.4 % (11.5-14.5) Platelet Count 193 x10^3/uL (140-400) Neutrophils (%) (Auto) 73 % (31-73) Lymphocytes (%) (Auto) 13 % (24-48) Monocytes (%) (Auto) 9 % (0-9) Eosinophils (%) (Auto) 5 % (0-3) Basophils (%) (Auto) 1 % (0-3) Neutrophils # (Auto) 3.7 x10^3/uL (1.8-7.7) Lymphocytes # (Auto) 0.7 x10^3/uL (1.0-4.8) Monocytes # (Auto) 0.4 x10^3/uL (0.0-1.1) Eosinophils # (Auto) 0.2 x10^3/uL (0.0-0.7) Basophils # (Auto) 0.0 x10^3/uL (0.0-0.2) Sodium Level 139 mmol/L (136-145) Potassium Level 3.9 mmol/L (3.5-5.1) Chloride Level 101 mmol/L (98-107) Carbon Dioxide Level 27 mmol/L (21-32) Anion Gap 11 (6-14) Blood Urea Nitrogen 44 mg/dL (8-26) Creatinine 7.1 mg/dL (0.7-1.3) Estimated GFR (Cockcroft-Gault) 9.5 Glucose Level 137 mg/dL (70-99) Calcium Level 8.5 mg/dL (8.5-10.1) Phosphorus Level 3.9 mg/dL (2.6-4.7) Albumin 2.6 g/dL (3.4-5.0) Test 01/19/21 07:21 01/19/21 09:05 Glucose (Fingerstick) 108 mg/dL (70-99) White Blood Count 5.8 x10^3/uL (4.0-11.0) Red Blood Count 3.40 x10^6/uL (4.30-5.70) Hemoglobin 9.5 g/dL (13.0-17.5) Hematocrit 29.0 % (39.0-53.0) Mean Corpuscular Volume 85 fL (79-100) Mean Corpuscular Hemoglobin 28 pg (25-35) Mean Corpuscular Hemoglobin Concent 33 g/dL (31-37) Red Cell Distribution Width 13.6 % (11.5-14.5) Platelet Count 178 x10^3/uL (140-400) Neutrophils (%) (Auto) 69 % (31-73) Lymphocytes (%) (Auto) 15 % (24-48) Monocytes (%) (Auto) 11 % (0-9) Eosinophils (%) (Auto) 5 % (0-3) Basophils (%) (Auto) 1 % (0-3) Neutrophils # (Auto) 4.0 x10^3/uL (1.8-7.7) Lymphocytes # (Auto) 0.8 x10^3/uL (1.0-4.8) Monocytes # (Auto) 0.6 x10^3/uL (0.0-1.1) Eosinophils # (Auto) 0.3 x10^3/uL (0.0-0.7) Basophils # (Auto) 0.1 x10^3/uL (0.0-0.2) Prothrombin Time 30.8 SEC (11.7-14.0) Prothromb Time International Ratio 2.9 (0.8-1.1) Sodium Level 142 mmol/L (136-145) Potassium Level 5.0 mmol/L (3.5-5.1) Chloride Level 104 mmol/L (98-107) Carbon Dioxide Level 28 mmol/L (21-32) Anion Gap 10 (6-14) Blood Urea Nitrogen 37 mg/dL (8-26) Creatinine 6.3 mg/dL (0.7-1.3) Estimated GFR (Cockcroft-Gault) 10.8 BUN/Creatinine Ratio 6 (6-20) Glucose Level 135 mg/dL (70-99) Calcium Level 8.6 mg/dL (8.5-10.1) Total Bilirubin 0.2 mg/dL (0.2-1.0) Aspartate Amino Transf (AST/SGOT) 14 U/L (15-37) Alanine Aminotransferase (ALT/SGPT) 16 U/L (16-63) Alkaline Phosphatase 70 U/L (46-116) Total Protein 6.6 g/dL (6.4-8.2) Albumin 2.6 g/dL (3.4-5.0) Albumin/Globulin Ratio 0.7 (1.0-1.7) Microbiology 01/18/21 Blood Culture - Preliminary, Resulted NO GROWTH AFTER 1 DAY Medications Current Medications Sodium Chloride (Normal Saline Flush) 3 ml QSHIFT PRN IV AFTER MEDS AND BLOOD DRAWS; Start 01/17/21 at 16:45 Ondansetron HCl (Zofran) 4 mg PRN Q4HRS PRN IV NAUSEA/VOMITING; Start 01/17/21 at 16:45 Acetaminophen (Tylenol) 650 mg PRN Q4HRS PRN PO TEMP OVER 100.4F OR MILD PAIN; Start 01/17/21 at 16:45 Docusate Sodium (Colace) 100 mg PRN BID PRN PO HARD STOOLS; Start 01/17/21 at 16:45 Albuterol Sulfate (Ventolin Neb Soln) 2.5 mg PRN Q4HRS PRN NEB SHORTNESS OF BREATH; Start 01/17/21 at 16:45 Guaifenesin (Robitussin) 200 mg PRN Q4HRS PRN PO COUGH; Start 01/17/21 at 16:45 Lorazepam (Ativan) 0.5 mg PRN Q4HRS PRN PO ANXIETY / AGITATION; Start 01/17/21 at 16:45 Amlodipine Besylate (Norvasc) 10 mg DAILY PO Last administered on 01/19/21at 08:57; Start 01/18/21 at 09:00 Gabapentin (Neurontin) 300 mg TID PO Last administered on 01/19/21at 08:56; Start 01/17/21 at 21:00 Acetaminophen/ Hydrocodone Bitart (Lortab 5/325) ONE HALF TO ONE TABLET... PRN Q8HRS PRN PO MODERATE TO SEVERE PAIN Last administered on 01/19/21at 08:57; Start 01/17/21 at 17:15 Warfarin Sodium (Coumadin) 5 mg [id number] PO Last administered on 01/18/21at 19:38; Start 01/17/21 at 16:00 Warfarin Sodium (Coumadin) 7.5 mg QSU PO ; Start 01/19/21 at 16:00 Insulin Glargine (Lantus Syringe) 22 unit QHS SQ Last administered on 01/18/21at 21:46; Start 01/17/21 at 21:00 Insulin Human Lispro (HumaLOG) 10 units TIDWMEALS SQ Last administered on 01/18/21at 19:54; Start 01/18/21 at 08:00 Lactobacillus Rhamnosus (Culturelle) 1 cap DAILY PO Last administered on 01/18/21at 08:59; Start 01/18/21 at 09:00; Stop 01/18/21 at 10:45; Status DC Warfarin Sodium (Coumadin Per Pharmacy) 1 each PRN DAILY PRN MC SEE COMMENTS; Start 01/17/21 at 17:30 Ceftriaxone Sodium (Rocephin) 1 gm Q24H IVP ; Start 01/17/21 at 21:00; Stop 01/18/21 at 16:26; Status DC Pharmacy Consult (C.diff Med Screen By Rx) 1 each 1X ONCE MC Last administered on 01/17/21at 20:30; Start 01/17/21 at 20:30; Stop 01/17/21 at 20:31; Status DC Zolpidem Tartrate (Ambien) 5 mg PRN QHS PRN PO INSOMNIA Last administered on 01/18/21at 21:37; Start 01/17/21 at 21:15 Hydroxyzine HCl (Atarax) 25 mg PRN Q6HRS PRN PO ITCHING; Start 01/17/21 at 21:15 Diphenhydramine HCl (Benadryl) 12.5 mg PRN Q6HRS PRN PO ITCHING; Start 01/17/21 at 21:15; Stop 01/17/21 at 21:33; Status DC Insulin Human Lispro (HumaLOG) 0-7 UNITS QIDACHS SQ Last administered on 01/18/21at 19:55; Start 01/18/21 at 07:30 Dextrose (Dextrose 50%-Water Syringe) 12.5 gm PRN Q15MIN PRN IV SEE COMMENTS; Start 01/17/21 at 21:15 Insulin Human Lispro (HumaLOG) 12 units 1X ONCE SQ Last administered on 01/17/21at 22:24; Start 01/17/21 at 21:30; Stop 01/17/21 at 21:31; Status DC Neomycin/ Polymyxin/ Bacitracin (Triple Antibiotic Ointment) 1 pkt DAILY TP Last administered on 01/19/21at 08:58; Start 01/17/21 at 22:00 Diphenhydramine HCl (Benadryl Oral Elixir) 12.5 mg PRN Q6HRS PRN PO ITCHING Last administered on 01/18/21at 21:37; Start 01/17/21 at 21:45 Lactobacillus Rhamnosus (Culturelle) 1 cap BID PO Last administered on 01/19/21at 08:57; Start 01/18/21 at 21:00 Sodium Chloride 1,000 ml @ 1,000 mls/hr Q1H PRN IV hypotension; Start 01/18/21 at 13:00; Stop 01/18/21 at 21:00; Status DC Albumin Human 200 ml @ 200 mls/hr 1X PRN PRN IV Hypotension; Start 01/18/21 at 13:00; Stop 01/18/21 at 21:00; Status DC Diphenhydramine HCl (Benadryl) 25 mg 1X PRN PRN IV ITCHING; Start 01/18/21 at 13:00; Stop 01/18/21 at 21:00; Status DC Diphenhydramine HCl (Benadryl) 25 mg 1X PRN PRN IV ITCHING; Start 01/18/21 at 13:00; Stop 01/18/21 at 21:00; Status DC Sodium Chloride 1,000 ml @ 400 mls/hr Q2H30M PRN IV PATENCY; Start 01/18/21 at 13:00; Stop 01/18/21 at 23:00; Status DC Lidocaine HCl (Xylocaine-Mpf 1% 2ml Vial) 2 ml 1X PRN PRN INJ FOR DIALYSIS; Start 01/18/21 at 13:00; Stop 01/18/21 at 21:00; Status DC Info (PHARMACY MONITORING -- do not chart) 1 each PRN DAILY PRN MC SEE COMMENTS; Start 01/18/21 at 14:15 Info (PHARMACY MONITORING -- do not chart) 1 each PRN DAILY PRN MC SEE COMMENTS; Start 01/18/21 at 14:15; Status UNV Vancomycin HCl (Vanco Per Pharmacy) 1 each PRN DAILY PRN MC SEE COMMENTS Last administered on 01/19/21at 03:35; Start 01/18/21 at 16:15 Vancomycin HCl 2 gm/Sodium Chloride 500 ml @ 250 mls/hr 1X ONCE IV Last administered on 01/18/21at 21:37; Start 01/18/21 at 17:00; Stop 01/18/21 at 18:59; Status DC Meropenem 500 mg/ Sodium Chloride 50 ml @ 100 mls/hr Q24H IV Last administered on 01/18/21at 20:21; Start 01/18/21 at 18:00 Vancomycin HCl (Vancomycin Random Level) 1 each 1X ONCE MC ; Start 01/20/21 at 06:00; Stop 01/20/21 at 06:01 Active Scripts Active Hydrocodone-Acetamin 5-325 mg (Hydrocodone/Acetaminophen) 1 Each Tablet 0.5-1 Each PO Q4-6HRS PRN Gabapentin 300 Mg Capsule 300 Mg PO TID MDD 1 Amlodipine Besylate 10 Mg Tablet 10 Mg PO DAILY MDD 1 Reported Neosporin Ointment (Neomy Sulf/Bacitrac Zn/Poly) 28.3 Gm Oint...g. 28.3 Gm TP DAILY Culturelle (Lactobacillus Rhamnosus Gg) 1 Each Capsule 1 Cap PO DAILY 7 Days Humalog (Insulin Lispro) 100 Unit/1 Ml Cartridge 10 Unit SQ TIDWMEALS Lantus Solostar (Insulin Glargine,Hum.rec.anlog) 100 Unit/1 Ml Insuln.pen 18 Unit SQ QHS Warfarin Sodium 5 Mg Tablet 2 Tab PO QFRSUN Warfarin Sodium 5 Mg Tablet 1 Tab PO QMTUWTHSA Vitals/I & O Vital Sign - Last 24 Hours 01/18/21 01/18/21 01/18/21 01/18/21 11:00 19:00 19:41 20:22 Temp 97.5 98.6 97.5 98.6 Pulse 74 91 Resp 18 18 19 18 B/P (MAP) 126/66 (86) 137/63 (87) Pulse Ox 98 97 98 98 O2 Delivery Room Air Room Air Room Air Room Air 01/18/21 01/18/21 01/19/21 01/19/21 20:22 23:00 03:00 07:00 Temp 98.5 98.5 98.3 98.5 98.5 98.3 Pulse 88 79 87 Resp 16 18 B/P (MAP) 124/62 (82) 122/74 (90) 134/73 (93) Pulse Ox 96 99 96 O2 Delivery Room Air Room Air Room Air 01/19/21 01/19/21 01/19/21 07:53 08:57 08:57 Pulse 87 Resp 18 B/P (MAP) 134/73 Pulse Ox 96 O2 Delivery Room Air Room Air Intake and Output 01/18/21 01/18/21 01/19/21 15:00 23:00 07:00 Intake Total 50 ml 500 ml Output Total 250 ml 0 ml Balance -250 ml 50 ml 500 ml Justicifation of Admission Dx: Justifications for Admission: Justification of Admission Dx: Yes Chronic Renal Failure: Electrolyte Abnormality KACI SANDERS MD Jan 19, 2021 10:12
[2021-01-19 11:00] VITALS: BP 131/63
--- NOTE | 2021-01-19 12:22 | PDOC ---
Renal-Progress Notes Subjective Notes Notes NO NEW COMPLAINTS History of Present Illness Hx of present illness STABLE Vitals Vitals Vital Signs Date Time Temp Pulse Resp B/P (MAP) Pulse Ox O2 Delivery O2 Flow Rate FiO2 01/19/21 11:00 99.3 85 18 131/63 (85) 96 Room Air 99.3 Weight Weight [ ] I.O. Intake and Output Intake and Output 01/19/21 07:00 Intake Total 550 ml Output Total 250 ml Balance 300 ml IV Total 550 ml Output Urine Total 250 ml # Voids 2 # Bowel Movements 1 Labs Labs Laboratory Tests Test 01/18/21 14:00 01/18/21 19:22 01/18/21 21:43 01/19/21 07:21 White Blood Count 5.1 x10^3/uL (4.0-11.0) Red Blood Count 3.32 x10^6/uL (4.30-5.70) Hemoglobin 9.3 g/dL (13.0-17.5) Hematocrit 28.1 % (39.0-53.0) Mean Corpuscular Volume 85 fL (79-100) Mean Corpuscular Hemoglobin 28 pg (25-35) Mean Corpuscular Hemoglobin Concent 33 g/dL (31-37) Red Cell Distribution Width 13.4 % (11.5-14.5) Platelet Count 193 x10^3/uL (140-400) Neutrophils (%) (Auto) 73 % (31-73) Lymphocytes (%) (Auto) 13 % (24-48) Monocytes (%) (Auto) 9 % (0-9) Eosinophils (%) (Auto) 5 % (0-3) Basophils (%) (Auto) 1 % (0-3) Neutrophils # (Auto) 3.7 x10^3/uL (1.8-7.7) Lymphocytes # (Auto) 0.7 x10^3/uL (1.0-4.8) Monocytes # (Auto) 0.4 x10^3/uL (0.0-1.1) Eosinophils # (Auto) 0.2 x10^3/uL (0.0-0.7) Basophils # (Auto) 0.0 x10^3/uL (0.0-0.2) Sodium Level 139 mmol/L (136-145) Potassium Level 3.9 mmol/L (3.5-5.1) Chloride Level 101 mmol/L (98-107) Carbon Dioxide Level 27 mmol/L (21-32) Anion Gap 11 (6-14) Blood Urea Nitrogen 44 mg/dL (8-26) Creatinine 7.1 mg/dL (0.7-1.3) Estimated GFR (Cockcroft-Gault) 9.5 Glucose Level 137 mg/dL (70-99) Calcium Level 8.5 mg/dL (8.5-10.1) Phosphorus Level 3.9 mg/dL (2.6-4.7) Albumin 2.6 g/dL (3.4-5.0) Glucose (Fingerstick) 333 mg/dL (70-99) 189 mg/dL (70-99) 108 mg/dL (70-99) Test 01/19/21 09:05 01/19/21 10:10 White Blood Count 5.8 x10^3/uL (4.0-11.0) Red Blood Count 3.40 x10^6/uL (4.30-5.70) Hemoglobin 9.5 g/dL (13.0-17.5) Hematocrit 29.0 % (39.0-53.0) Mean Corpuscular Volume 85 fL (79-100) Mean Corpuscular Hemoglobin 28 pg (25-35) Mean Corpuscular Hemoglobin Concent 33 g/dL (31-37) Red Cell Distribution Width 13.6 % (11.5-14.5) Platelet Count 178 x10^3/uL (140-400) Neutrophils (%) (Auto) 69 % (31-73) Lymphocytes (%) (Auto) 15 % (24-48) Monocytes (%) (Auto) 11 % (0-9) Eosinophils (%) (Auto) 5 % (0-3) Basophils (%) (Auto) 1 % (0-3) Neutrophils # (Auto) 4.0 x10^3/uL (1.8-7.7) Lymphocytes # (Auto) 0.8 x10^3/uL (1.0-4.8) Monocytes # (Auto) 0.6 x10^3/uL (0.0-1.1) Eosinophils # (Auto) 0.3 x10^3/uL (0.0-0.7) Basophils # (Auto) 0.1 x10^3/uL (0.0-0.2) Prothrombin Time 30.8 SEC (11.7-14.0) Prothromb Time International Ratio 2.9 (0.8-1.1) Sodium Level 142 mmol/L (136-145) Potassium Level 5.0 mmol/L (3.5-5.1) Chloride Level 104 mmol/L (98-107) Carbon Dioxide Level 28 mmol/L (21-32) Anion Gap 10 (6-14) Blood Urea Nitrogen 37 mg/dL (8-26) Creatinine 6.3 mg/dL (0.7-1.3) Estimated GFR (Cockcroft-Gault) 10.8 BUN/Creatinine Ratio 6 (6-20) Glucose Level 135 mg/dL (70-99) Calcium Level 8.6 mg/dL (8.5-10.1) Total Bilirubin 0.2 mg/dL (0.2-1.0) Aspartate Amino Transf (AST/SGOT) 14 U/L (15-37) Alanine Aminotransferase (ALT/SGPT) 16 U/L (16-63) Alkaline Phosphatase 70 U/L (46-116) Total Protein 6.6 g/dL (6.4-8.2) Albumin 2.6 g/dL (3.4-5.0) Albumin/Globulin Ratio 0.7 (1.0-1.7) Glucose (Fingerstick) 141 mg/dL (70-99) Micro Micro Microbiology 01/18/21 Blood Culture - Preliminary, Resulted NO GROWTH AFTER 1 DAY Review of Systems Constitutional: yes: weakness, alert, oriented Ears/Nose/Throat: Yes: no symptom reported Eyes: Yes: no symptom reported Pulmonary: Yes no symptom reported Cardiovascular: Yes no symptom reported Gastrointestional: Yes: no symptom reported Genitourinary: Yes: no symptom reported Musculoskeletal: Yes: foot pain Skin: Yes no symptom reported Psychiatric/Neurological: Yes: weakness Endocrine: Yes: no symptom reported Physical Exam General Appearance: no apparent distress Skin: warm Respiratory: bilateral CTA Heart: S1S2 Abdomen: soft, bowel sounds present Genitourinary: bladder flat Extremities: pulses present, atrophy Neurology: alert, oriented Assessment Assessment IMP ESRD ANEMIA DM II HTN AFIB R FOOT WOUNDS PROB PAD NON COMPLIANCE NEUROPATHY SUBSTANCE ABUSE PLAN HD TOMORROW MIKEY NEEDED ANTIBIOTICS ID AND VASCULAR SURGERY EVAL ENC COMPLIANCE WILL FOLLOW MARTINEZ JENSEN MD Jan 19, 2021 12:22
--- NOTE | 2021-01-19 13:41 | NUR ---
Pharmacy Warfarin Dosing Note S:Pharmacy consulted to assist with anticoagulation therapy started with target INR: 2 -3 O:UMER VANCE is a 65 year old M with HX of PE LABS: Last INR: 2.9 Last HGB: 9.5 Last HCT: 29.0 Last PLT: 178 Last dose of 5 mg given on 01/18/21 at 1938 Previous Regimen: Vitamin K given: N Drug Interaction Changes: Ongoing Drug Interactions: A:INR of 2.9 is within desired range. Target range for this patient is: 2 -3. P: Warfarin dose: 3 mg Today at 1600. Bridge Therapy: None Next INR due Wednesday. Pharmacy anticoagulation service will continue to follow. Polo Alarcon [facility], 01/19/21 [id number]
[2021-01-19 15:00] VITALS: BP 107/63
--- NOTE | 2021-01-19 15:10 | PDOC ---
Infectious Disease Note Vital Sign Vital Signs Vital Signs Date Time Temp Pulse Resp B/P (MAP) Pulse Ox O2 Delivery O2 Flow Rate FiO2 01/19/21 11:00 99.3 85 18 131/63 (85) 96 Room Air 99.3 Physical Exam PHYSICAL EXAM Labs Lab Laboratory Tests Test 01/18/21 19:22 01/18/21 21:43 01/19/21 07:21 01/19/21 09:05 Glucose (Fingerstick) 333 mg/dL (70-99) 189 mg/dL (70-99) 108 mg/dL (70-99) White Blood Count 5.8 x10^3/uL (4.0-11.0) Red Blood Count 3.40 x10^6/uL (4.30-5.70) Hemoglobin 9.5 g/dL (13.0-17.5) Hematocrit 29.0 % (39.0-53.0) Mean Corpuscular Volume 85 fL (79-100) Mean Corpuscular Hemoglobin 28 pg (25-35) Mean Corpuscular Hemoglobin Concent 33 g/dL (31-37) Red Cell Distribution Width 13.6 % (11.5-14.5) Platelet Count 178 x10^3/uL (140-400) Neutrophils (%) (Auto) 69 % (31-73) Lymphocytes (%) (Auto) 15 % (24-48) Monocytes (%) (Auto) 11 % (0-9) Eosinophils (%) (Auto) 5 % (0-3) Basophils (%) (Auto) 1 % (0-3) Neutrophils # (Auto) 4.0 x10^3/uL (1.8-7.7) Lymphocytes # (Auto) 0.8 x10^3/uL (1.0-4.8) Monocytes # (Auto) 0.6 x10^3/uL (0.0-1.1) Eosinophils # (Auto) 0.3 x10^3/uL (0.0-0.7) Basophils # (Auto) 0.1 x10^3/uL (0.0-0.2) Prothrombin Time 30.8 SEC (11.7-14.0) Prothromb Time International Ratio 2.9 (0.8-1.1) Sodium Level 142 mmol/L (136-145) Potassium Level 5.0 mmol/L (3.5-5.1) Chloride Level 104 mmol/L (98-107) Carbon Dioxide Level 28 mmol/L (21-32) Anion Gap 10 (6-14) Blood Urea Nitrogen 37 mg/dL (8-26) Creatinine 6.3 mg/dL (0.7-1.3) Estimated GFR (Cockcroft-Gault) 10.8 BUN/Creatinine Ratio 6 (6-20) Glucose Level 135 mg/dL (70-99) Calcium Level 8.6 mg/dL (8.5-10.1) Total Bilirubin 0.2 mg/dL (0.2-1.0) Aspartate Amino Transf (AST/SGOT) 14 U/L (15-37) Alanine Aminotransferase (ALT/SGPT) 16 U/L (16-63) Alkaline Phosphatase 70 U/L (46-116) Total Protein 6.6 g/dL (6.4-8.2) Albumin 2.6 g/dL (3.4-5.0) Albumin/Globulin Ratio 0.7 (1.0-1.7) Test 01/19/21 10:10 Glucose (Fingerstick) 141 mg/dL (70-99) Micro Microbiology 01/18/21 Blood Culture - Preliminary, Resulted NO GROWTH AFTER 1 DAY 01/17/21 Gram Stain - Final, Resulted 01/17/21 Aerobic and Anaerobic Culture, Resulted Pending Objective Assessment Ulcerations involving the right 2nd and 3rd toes after using aspercream. No organisms on the gram stain. -Recently DC from on amoxicillin and doxycycline. No surgical intervention per pt. Diabetes with neuropthy CKD/HD A-fib, warfarin Plan Plan of Care Tried to see patient yesterday, but he was dialyzing and he didn't feel up to talking or taking down the dressing. Vancomycin and merrem were recommended. Probiotics Vascular input noted Wound care team consulted Monitor WBC trend and temp Discussed with patient mother. Thank you Seen with nursing and d/w mother. Mr. Savage wants conservative therapy. Vascular has seen Cont abx and f/u cults Attending Co-Sign Attending Co-Sign The patient was seen and interviewed as well as examined at the bedside. The chart was reviewed. The case was discussed. Agree with the plan of care. BRIAN ARROYO [employer] Jan 19, 2021 15:10 LEV CORONADO MD Jan 19, 2021 15:26
[2021-01-19] MEDS ORDERED: WARFARIN 3 MG TABLET. PO SCH (16:00)
--- NOTE | 2021-01-19 17:54 | CONS ---
DATE OF CONSULTATION: 01/19/2021 Yuly Jaimes, nurse practitioner, dictating for Dr. Alan Todd, Infectious Disease. REFERRING PHYSICIAN: Dr. Robles. REASON FOR CONSULTATION: Right foot wounds. HISTORY OF PRESENT ILLNESS: This patient is a 65-year-old -[place] male who has diabetes and chronic kidney disease on hemodialysis. He was admitted with complaints of left-sided numbness and weakness. CT of the head showed no acute findings. On exam, he was found to have wound involving his right toes. The patient explains about 2 weeks ago, he developed worsening burning pain in his right foot. He applied Aspercreme for relief. The following day, he noticed the skin on his toes were peeling off. He was hospitalized at for about 5 days and he was discharged 01/13 on doxycycline and amoxicillin. He does not recall any surgical or vascular intervention being performed. Arterial duplex imaging did not show significant occlusive disease. Plain x-ray showed no evidence of osteomyelitis. He was initially on ceftriaxone. I did come to see the patient yesterday; however, he was dialyzing and he did not feel up to talking or allowing take down of the dressing. In view of the records and pictures, it was switched to vancomycin and meropenem. PAST MEDICAL HISTORY: Chronic kidney disease, on hemodialysis; diabetes type 1, history of DVT, colon cancer, ulcerative colitis, history of polysubstance abuse, osteoarthritis, hyperparathyroidism, anemia. PAST SURGICAL HISTORY: Cholecystectomy, colectomy. FAMILY HISTORY: COPD. SOCIAL HISTORY: The patient lives at home with his mother. He is a smoker and drinks alcohol on occasion. He has a history of cocaine and crystal methamphetamine. ALLERGIES: PREDNISONE. MEDICATIONS: Ceftriaxone, probiotics, warfarin. Other medications are available and have been reviewed on the NOV. REVIEW OF SYSTEMS: The patient complains of some persistent burning pain in his right foot. He denies redness, swelling or drainage. He denies fevers, chills or body aches. He denies nausea, vomiting or diarrhea. He does have some bowel urgency, which he attributes to having colon surgery in the past. He denies rash or itching. Denies shortness of air, cough or wheezing. Other review of systems is negative. PHYSICAL EXAMINATION: VITAL SIGNS: Temperature 99.3, blood pressure 131/63, heart rate 85, respiratory rate 18, pulse oximetry 96% on room air. GENERAL: The patient is sitting in the chair, alert, appears comfortable. HEENT: Normal conjunctivae. Oropharynx clear. NECK: Supple. LUNGS: Clear to auscultation. No accessory muscle use. HEART: Normal S1 and S2. ABDOMEN: Nondistended, soft, nontender with bowel sounds present. EXTREMITIES: Trace edema in lower extremities. No cyanosis. Right second and third toes, all ulcerated, superficial. NEUROLOGIC: Alert, answering questions appropriately, but somewhat of a poor historian. LABORATORY DATA: WBC 5.8, hemoglobin 9.5, platelets 178,000. Sodium 142, potassium 5.0, creatinine 6.3, BUN 37, glucose 135, total bilirubin 0.2, AST 14, ALT 16, albumin 2.6. Blood cultures from the , negative to date. Culture from right toe pending. No organisms seen on the Gram stain. Bilateral lower extremity arterial duplex showed no evidence of arterial occlusion. Plain right foot x-ray showed no radiographic evidence of osteomyelitis. Irregular soft tissues at the far distal great and second toes. IMPRESSION: 1. Ulcerations involving the right second and third toes after using Aspercreme. No organisms seen on Gram stain. 2. Diabetes with neuropathy. 3. Chronic kidney disease, on hemodialysis. 4. Atrial fibrillation, on warfarin. PLAN: 1. Continue the vancomycin and meropenem. 2. Probiotics. 3. Vascular input noted. 4. Wound care team has been consulted. 5. Monitor WBC trend and temperature. 6. Follow up cultures. 7. Discussed with the patient's mother at bedside. SHIMA DR: Naeem TID: [id number]
[2021-01-19] MEDS: MEROPENEM 500 MG in IV NORMAL SALINE 50ML 50 ML IV SCH (18:01)
[2021-01-19 19:00] VITALS: BP 123/75
[2021-01-19] MEDS ORDERED: DARBEPOETIN ALFA 60 MCG/0.3 ML DISP.SYRIN. SQ SCH (21:00)
[2021-01-19] MEDS: ZOLPIDEM 5 MG TABLET. PO PRN (22:01)
[2021-01-19] MEDS: diphenhydrAMINE ORAL ELIXIR 12.5 MG/5 ML ML PO PRN (22:01)
[2021-01-19] MEDS: INSULIN GLARGINE SYRINGE. SQ SCH (22:04)
[2021-01-19 23:00] VITALS: BP 134/66
[2021-01-20 03:00] VITALS: BP 140/73
[2021-01-20] MEDS: HYDROcodone/APAP 5/325MG 1 TAB TABLET PO PRN ×4 (03:43→21:42)
[2021-01-20 05:36] LABS: CALCIUM 8.3 mg/dL (8.5-10.1); CREATININE 7.8 mg/dL (0.7-1.3); GFR 8.5
[2021-01-20 05:59] LABS: POTASSIUM 5.5 mmol/L (3.5-5.1)
[2021-01-20] MEDS ORDERED: VANCOMYCIN RANDOM LEVEL. MC ONE (06:00)
[2021-01-20 07:00] VITALS: BP 165/77
[2021-01-20] MEDS: INSULIN LISPRO 300 UNITS/3 ML VIAL. SQ SCH ×7 (07:30→21:00)
[2021-01-20] MEDS ORDERED: DIALYSIS PATIENT. MC PRN (07:30)
[2021-01-20] MEDS ORDERED: IV NORMAL SALINE 1000ML BAG 1,000 ML IV PRN ×2 (07:30)
[2021-01-20 07:40] LABS: BASO % 1 % (0-3); EOS # 0.4 x10^3/uL (0.0-0.7); EOS % 9 % (0-3); HEMATOCRIT 27.8 % (39.0-53.0); HEMOGLOBIN 9.1 g/dL (13.0-17.5); LYMPH # 1.1 x10^3/uL (1.0-4.8); LYMPH % 22 % (24-48); MEAN CORPUSCULAR HEMOGLOBIN 29 pg (25-35); MEAN CORPUSCULAR HGB CONC 33 g/dL (31-37); MEAN CORPUSCULAR VOLUME 87 fL (79-100); MONO # 0.6 x10^3/uL (0.0-1.1); MONO % 12 % (0-9); NEUT # 2.8 x10^3/uL (1.8-7.7); NEUT % 56 % (31-73); PLATELET COUNT 188 x10^3/uL (140-400); RED BLOOD COUNT 3.19 x10^6/uL (4.30-5.70); RED CELL DISTRIBUTION WIDTH 13.9 % (11.5-14.5); WHITE BLOOD COUNT 4.9 x10^3/uL (4.0-11.0)
[2021-01-20] MEDS: GABAPENTIN 300 MG CAPSULE. PO SCH ×3 (09:00→21:35)
[2021-01-20] MEDS: amLODIPine BESYLATE 10 MG TABLET PO SCH (09:00)
[2021-01-20] MEDS ORDERED: LIDOCAINE 1% PF 2 ML VIAL. ID ONE (10:00)
--- NOTE | 2021-01-20 11:16 | PDOC ---
Infectious Disease Note Subjective: Subjective pt says doing ok Vital Signs: Vital Signs Vital Signs Date Time Temp Pulse Resp B/P (MAP) Pulse Ox O2 Delivery O2 Flow Rate FiO2 01/20/21 10:21 16 96 Room Air 01/20/21 07:00 98.7 84 165/77 (106) 98.7 Physical Exam: PHYSICAL EXAM GENERAL: The patient is alert, appears comfortable. HEENT: Normal conjunctivae. Oropharynx clear. NECK: Supple. LUNGS: Clear to auscultation. No accessory muscle use. HEART: Normal S1 and S2. ABDOMEN: Nondistended, soft, nontender with bowel sounds present. EXTREMITIES: Trace edema in lower extremities. No cyanosis. Right second and third toes, all ulcerated, superficial. NEUROLOGIC: Alert, answering questions appropriately, but somewhat of a poor historian. Medications: Inpatient Meds: Medications reviewed. Labs: Lab Laboratory Tests Test 01/19/21 16:20 01/19/21 20:22 01/20/21 04:23 01/20/21 07:40 Glucose (Fingerstick) 236 mg/dL (70-99) 133 mg/dL (70-99) 370 mg/dL (70-99) White Blood Count 4.9 x10^3/uL (4.0-11.0) Red Blood Count 3.19 x10^6/uL (4.30-5.70) Hemoglobin 9.1 g/dL (13.0-17.5) Hematocrit 27.8 % (39.0-53.0) Mean Corpuscular Volume 87 fL (79-100) Mean Corpuscular Hemoglobin 29 pg (25-35) Mean Corpuscular Hemoglobin Concent 33 g/dL (31-37) Red Cell Distribution Width 13.9 % (11.5-14.5) Platelet Count 188 x10^3/uL (140-400) Neutrophils (%) (Auto) 56 % (31-73) Lymphocytes (%) (Auto) 22 % (24-48) Monocytes (%) (Auto) 12 % (0-9) Eosinophils (%) (Auto) 9 % (0-3) Basophils (%) (Auto) 1 % (0-3) Neutrophils # (Auto) 2.8 x10^3/uL (1.8-7.7) Lymphocytes # (Auto) 1.1 x10^3/uL (1.0-4.8) Monocytes # (Auto) 0.6 x10^3/uL (0.0-1.1) Eosinophils # (Auto) 0.4 x10^3/uL (0.0-0.7) Basophils # (Auto) 0.0 x10^3/uL (0.0-0.2) Sodium Level 140 mmol/L (136-145) Potassium Level 5.5 mmol/L (3.5-5.1) Chloride Level 104 mmol/L (98-107) Carbon Dioxide Level 25 mmol/L (21-32) Anion Gap 11 (6-14) Blood Urea Nitrogen 53 mg/dL (8-26) Creatinine 7.8 mg/dL (0.7-1.3) Estimated GFR (Cockcroft-Gault) 8.5 Glucose Level 290 mg/dL (70-99) Calcium Level 8.3 mg/dL (8.5-10.1) Random Vancomycin Level 24.7 mcg/mL Objective: Assessment: 1. Ulcerations involving the right second and third toes after using Aspercreme. Cultures positive for Dorita parapsilosis 2. Diabetes with neuropathy. 3. Chronic kidney disease, on hemodialysis. 4. Atrial fibrillation, on warfarin. Plan: Plan of Care Continue Merrem/vancomycin Clotrimazole for local application Probiotics Vascular input noted Wound care team consulted Monitor WBC trend and temp GIL ANDRADE MD Jan 20, 2021 11:16
[2021-01-20] MEDS ORDERED: VANCOMYCIN PER PHARMACY MC PRN (12:15)
--- NOTE | 2021-01-20 12:51 | PDOC ---
Renal-Progress Notes Subjective Notes Notes NO NEW COMPLAINTS History of Present Illness Hx of present illness STABLE Vitals Vitals Vital Signs Date Time Temp Pulse Resp B/P (MAP) Pulse Ox O2 Delivery O2 Flow Rate FiO2 01/20/21 10:21 16 96 Room Air 01/20/21 07:00 98.7 84 165/77 (106) 98.7 Weight Weight [ ] I.O. Intake and Output Intake and Output 01/20/21 07:00 Intake Total 240 ml Balance 240 ml Intake Oral 240 ml # Voids 3 Labs Labs Laboratory Tests Test 01/19/21 16:20 01/19/21 20:22 01/20/21 04:23 01/20/21 07:40 Glucose (Fingerstick) 236 mg/dL (70-99) 133 mg/dL (70-99) 370 mg/dL (70-99) White Blood Count 4.9 x10^3/uL (4.0-11.0) Red Blood Count 3.19 x10^6/uL (4.30-5.70) Hemoglobin 9.1 g/dL (13.0-17.5) Hematocrit 27.8 % (39.0-53.0) Mean Corpuscular Volume 87 fL (79-100) Mean Corpuscular Hemoglobin 29 pg (25-35) Mean Corpuscular Hemoglobin Concent 33 g/dL (31-37) Red Cell Distribution Width 13.9 % (11.5-14.5) Platelet Count 188 x10^3/uL (140-400) Neutrophils (%) (Auto) 56 % (31-73) Lymphocytes (%) (Auto) 22 % (24-48) Monocytes (%) (Auto) 12 % (0-9) Eosinophils (%) (Auto) 9 % (0-3) Basophils (%) (Auto) 1 % (0-3) Neutrophils # (Auto) 2.8 x10^3/uL (1.8-7.7) Lymphocytes # (Auto) 1.1 x10^3/uL (1.0-4.8) Monocytes # (Auto) 0.6 x10^3/uL (0.0-1.1) Eosinophils # (Auto) 0.4 x10^3/uL (0.0-0.7) Basophils # (Auto) 0.0 x10^3/uL (0.0-0.2) Sodium Level 140 mmol/L (136-145) Potassium Level 5.5 mmol/L (3.5-5.1) Chloride Level 104 mmol/L (98-107) Carbon Dioxide Level 25 mmol/L (21-32) Anion Gap 11 (6-14) Blood Urea Nitrogen 53 mg/dL (8-26) Creatinine 7.8 mg/dL (0.7-1.3) Estimated GFR (Cockcroft-Gault) 8.5 Glucose Level 290 mg/dL (70-99) Calcium Level 8.3 mg/dL (8.5-10.1) Random Vancomycin Level 24.7 mcg/mL Micro Micro Microbiology 01/18/21 Blood Culture - Preliminary, Resulted NO GROWTH AFTER 2 DAYS 01/17/21 Gram Stain - Final, Resulted 01/17/21 Aerobic and Anaerobic Culture - Preliminary, Resulted Review of Systems Constitutional: yes: weakness, alert, oriented Ears/Nose/Throat: Yes: no symptom reported Eyes: Yes: no symptom reported Pulmonary: Yes no symptom reported Cardiovascular: Yes no symptom reported Gastrointestional: Yes: no symptom reported Genitourinary: Yes: no symptom reported Musculoskeletal: Yes: foot pain Skin: Yes no symptom reported Psychiatric/Neurological: Yes: weakness Endocrine: Yes: no symptom reported Physical Exam General Appearance: no apparent distress Skin: warm Respiratory: bilateral CTA Heart: S1S2 Abdomen: soft, bowel sounds present Genitourinary: bladder flat Extremities: pulses present, atrophy Neurology: alert, oriented Assessment Assessment IMP ESRD ANEMIA DM II HTN AFIB R FOOT WOUNDS PROB PAD NON COMPLIANCE NEUROPATHY SUBSTANCE ABUSE PLAN HD TODAY UF TO TW MIKEY NEEDED ANTIBIOTICS ID AND VASCULAR SURGERY EVAL ENC COMPLIANCE WILL FOLLOW MARTINEZ JENSEN MD Jan 20, 2021 12:51
[2021-01-20] MEDS: VANCOMYCIN PER PHARMACY MC PRN (13:35)
--- NOTE | 2021-01-20 13:42 | PDOC ---
[facility] [facility] PROGRESS NOTE Date of Service DOS: DATE: 01/20/21 TIME: 13:29 Chief Complaint Chief Complaint A/P: Right foot cellulitis Right foot ulcers - 1st, 2nd, 3rd, and 4th toes NONCOMPLIANCE WITH DIALYSIS ACUTE Left arm, hand paresthesia POLYSUBSTANCE ABUSE No acute intracranial finding. ON CT HEAD MRI is more sensitive for acute infarction. Bilateral cerebral white matter changes, likely due to chronic small vessel disease. Weakness - likely from electrolyte abnormalities ESRD on HD MWF - COPD - historical, prn nebs Chronic diarrhea - Bilateral leg pain -diabetic neuropathy Ulcerative colitis - s/p colon resection Diabetes mellitus - will restart insulin Peripheral neuropathy - gabapentin renal dosing Hypertension - cont amlodipine History of DVT, on warfarin therapy History of colorectal cancer - s/p resection Subtotal colectomy. Ileoanal J- pouch H/o hepatitis C - in SVR Osteoarthritis - tylenol prn Anemia - of chronic renal disease. HX COCAINE ABUSE Elevated peak systolic velocity within the proximal left superficial femoral artery suggesting moderate to severe stenosis. There is also an elevated peak systolic velocity within the mid right superficial femoral artery suggesting mild stenosis./ PVD Abnormal waveform within the right dorsalis pedis artery suggesting hemodynamically significant proximal stenosis. No evidence of arterial occlusion. Extensive vascular calcifications. of right foot PLAN ADMIT NEPHROLOGY CONSULT HD TOMORROW 01-20 x ray right foot 3 VIEWS ID CONSULT NEUROCHECKS Q 4 HRS WOUND CARE NURSE CONSULT IV ROCEPHIN 1 GM Q 24 HRS change to merrem and vanc per Dr. Todd. CULTURE RIGHT FOOT WOUNDS pending sensitivities BLOOD CULTURE NEPHROLOGY CONSULT DVT PROPHYLAXIS ON COUMADIN vascular surgery consult 38 MIN PT EXAM, CHART REVIEW, > 50% of time spent with exam, chart review, pt care coordination D/W ER Justifications for Admission Other Justification History of Present Illness History of Present Illness Mr Savage is a 65yo M w/ PMHx ESRD, complicated grief, DM2 who comes to ED c/o weakness and numbness in bilateral hands. Notes he has missed dialysis today, and dialyses MWF [facility] 1 IN ER Weakness - likely from electrolyte abnormalities ESRD on HD MWF - COPD - historical, prn nebs hxChronic diarrhea - Bilateral leg pain -diabetic neuropathy hxUlcerative colitis - s/p colon resection Diabetes mellitus - will restart insulin hx polysubstance abuse He denies any chest pain, palpitations, headache, vision changes, nausea, vomiting, or shortness of breath has long hx noncompliance here, several admits, has right foot wounds as well, n ew chemical induced Consults: Nephrology, Vascular surgery, ID 01/19: AFEBRILE. IV ROCEPHIN 1 GM changed to merrem + vancomycin - ID consulted. CULTURE RIGHT FOOT WOUNDS pending sensitivities. BLOOD CULTURE. NEPHROLOGY CONSULT feet are quite dry and scaly. superficial ulcerative changes right forefoot // right second toe, dorsal aspects. moderate to severely elevated peak systolic velocity of 281 cm/s within the proximal left superficial femoral artery. Tolerated dialysis well. Afebrile. He still wants to go with conservative therapy for his foot as he does not want us.been able to drive. Tells me he has plans on 10/25/2020 and would like to be out of the hospital by then. No nausea or vomiting. No diarrhea. Wound culture pending. Vitals/I&O Vitals/I&O: Vital Signs Date Time Temp Pulse Resp B/P (MAP) Pulse Ox O2 Delivery O2 Flow Rate FiO2 01/20/21 10:21 16 96 Room Air 01/20/21 07:00 98.7 84 165/77 (106) 98.7 I & O 01/19/21 01/19/21 01/20/21 15:00 23:00 07:00 Intake Total 240 ml Balance 240 ml Physical Exam Physical Exam: GENERAL: The patient is alert, appears comfortable. HEENT: Normal conjunctivae. Oropharynx clear. NECK: Supple. LUNGS: Clear to auscultation. No accessory muscle use. HEART: Normal S1 and S2. ABDOMEN: Nondistended, soft, nontender with bowel sounds present. EXTREMITIES: Trace edema in lower extremities. No cyanosis. Right second and third toes, all ulcerated, superficial. NEUROLOGIC: Alert, answering questions appropriately, but somewhat of a poor historian. General: Alert, Oriented X3, Cooperative, No acute distress Heart: Regular rate Lungs: Clear Abdomen: Normal bowel sounds, Soft, No tenderness, Other (mild edema) Extremities: No cyanosis Skin: No breakdown, Other (right foot/ toes skin loss see photograph) Labs Labs: Laboratory Tests Test 01/19/21 16:20 01/19/21 20:22 01/20/21 04:23 01/20/21 07:40 Glucose (Fingerstick) 236 mg/dL (70-99) 133 mg/dL (70-99) 370 mg/dL (70-99) White Blood Count 4.9 x10^3/uL (4.0-11.0) Red Blood Count 3.19 x10^6/uL (4.30-5.70) Hemoglobin 9.1 g/dL (13.0-17.5) Hematocrit 27.8 % (39.0-53.0) Mean Corpuscular Volume 87 fL (79-100) Mean Corpuscular Hemoglobin 29 pg (25-35) Mean Corpuscular Hemoglobin Concent 33 g/dL (31-37) Red Cell Distribution Width 13.9 % (11.5-14.5) Platelet Count 188 x10^3/uL (140-400) Neutrophils (%) (Auto) 56 % (31-73) Lymphocytes (%) (Auto) 22 % (24-48) Monocytes (%) (Auto) 12 % (0-9) Eosinophils (%) (Auto) 9 % (0-3) Basophils (%) (Auto) 1 % (0-3) Neutrophils # (Auto) 2.8 x10^3/uL (1.8-7.7) Lymphocytes # (Auto) 1.1 x10^3/uL (1.0-4.8) Monocytes # (Auto) 0.6 x10^3/uL (0.0-1.1) Eosinophils # (Auto) 0.4 x10^3/uL (0.0-0.7) Basophils # (Auto) 0.0 x10^3/uL (0.0-0.2) Sodium Level 140 mmol/L (136-145) Potassium Level 5.5 mmol/L (3.5-5.1) Chloride Level 104 mmol/L (98-107) Carbon Dioxide Level 25 mmol/L (21-32) Anion Gap 11 (6-14) Blood Urea Nitrogen 53 mg/dL (8-26) Creatinine 7.8 mg/dL (0.7-1.3) Estimated GFR (Cockcroft-Gault) 8.5 Glucose Level 290 mg/dL (70-99) Calcium Level 8.3 mg/dL (8.5-10.1) Random Vancomycin Level 24.7 mcg/mL Test 01/20/21 13:17 Glucose (Fingerstick) 201 mg/dL (70-99) Assessment and Plan Assessmemt and Plan Problems Medical Problems: (1) Paresthesia Status: Acute Comment Review of Relevant I have reviewed the following items keron (where applicable) has been applied. Medications: Current Medications Medications (Trade) Dose Ordered Sig/Raymon Route PRN Reason Start Time Stop Time Status Last Admin Dose Admin Warfarin Sodium (Coumadin) 3 mg QSU PO 01/19/21 16:00 01/19/21 17:38 Vancomycin HCl (Vancomycin Random Level) 1 each 1X ONCE MC 01/20/21 06:00 01/20/21 06:01 DC 01/20/21 05:54 Darbepoetin Amador (ARANESP for DIALYSIS PTS) 60 mcg WEEKLYHS SQ 01/19/21 21:00 01/19/21 22:02 Lidocaine HCl (Xylocaine-Mpf 1% 2ml Vial) 2 ml QMWF ONCE ID 01/20/21 10:00 01/20/21 10:01 DC 01/20/21 09:08 Justifications for Admission Other Justification HYPERKALEMIA, MISSED DIALYSIS TIM RIOS MD Jan 20, 2021 13:42
--- NOTE | 2021-01-20 13:51 | NUR ---
SW following. Discussed with RN, pt from home with family, room air, renal diet, IV abx, wound care. Pt does dialysis MWF at [facility] (ph: [phone]). PT/OT/ST recommending home. Pt wanting to go home. SW will continue to follow.
[2021-01-20] MEDS: NEOMY/BACITR/POLYMYXIN OINT PACKET. TP SCH (14:17)
[2021-01-20] MEDS: CLOTRIMAZOLE 1% TOPICAL CREAM 14GM TUBE. TP SCH ×2 (14:17→21:00)
[2021-01-20] MEDS: LACTOBACILLUS RHAMNOSUS GG 1 CAPSULE. PO SCH ×2 (14:19→21:35)
[2021-01-20 15:00] VITALS: BP 140/78
[2021-01-20] MEDS: MEROPENEM 500 MG in IV NORMAL SALINE 50ML 50 ML IV SCH (17:54)
[2021-01-20] MEDS: WARFARIN 5 MG TABLET. PO SCH (18:00)
--- NOTE | 2021-01-20 18:28 | NUR ---
Wound/Ostomy Care Wound Type/Assessment: Wound care consult for right great toe, right 2nd, 3rd and 4th toes DFUs. Pt denies other wounds. Wants to follow up in outpatient clinic for toes wounds, states that he needs to be out of the hospital before d/t court. Pt states that he can do dressing changes at home. Treatment Recommendations/Plan: Cleanse wound with saline or wound wash, paint with Betadine, then cover with Iodoflex (remove white mesh prior to applying), cover with gauze (use gauze in between toes to keep Iodoflex in place) and Kermix, change every 3 days and/or prn if saturated/needed. Education provided: dressing changes education done with pt, verbalized understanding. Offloading surface/device: pt using post op shoe, half shoe is preferable d/t wounds extending to plantar side of toes. Recommended Referrals/Tests: [employer] for 1//2 shoe (pt states he uses size 13 in shoes) Discharge Recommendations for dressings: continue with same dressing recommendations as above. director to follow up with pt to set up outpatient appt.
[2021-01-20 19:26] VITALS: BP 115/63
--- NOTE | 2021-01-20 21:07 | NUR ---
DUGLAS Bills out to desk informing RN that pt wanted pain meds and a new RN. This RN went into room to find out what was wrong. Sanju accompanied RN. RN and pt talked with each other - pt reported that was just frustrated with what he saw as lack of care- reported did not know what the plan was for his foot. RN explained that with diabetes circulation can be poor and that feet really need to be monitored closely. Pt reported that no one had ever told him that. Pt had lotrimin ordered, RN asked where medicine went - pt unsure. When RN asked if pt had athletes' foot, pt reported that he "hadn't played sports in years." Rn not sure if pt fully comprehending teaching about diabetes and decreased circulation due to diabetes Addendum: 01/21/21 at 0135 by JOSE EDUARDO HAYNES RN RN [id number]: Pt refused sliding scale novolog. Reported that 183 is around normal for his blood sugar. Will continue to monitor
[2021-01-20] MEDS: diphenhydrAMINE ORAL ELIXIR 12.5 MG/5 ML ML PO PRN (21:35)
[2021-01-20] MEDS: ZOLPIDEM 5 MG TABLET. PO PRN (21:35)
[2021-01-20] MEDS: INSULIN GLARGINE SYRINGE. SQ SCH (21:42)
[2021-01-20 23:00] VITALS: BP 107/65
[2021-01-21 03:00] VITALS: BP 90/55
[2021-01-21 07:00] VITALS: BP 154/74
--- NOTE | 2021-01-21 07:28 | PDOC ---
[facility] [facility] PROGRESS NOTE Date of Service DOS: DATE: 01/21/21 TIME: 07:27 Chief Complaint Chief Complaint A/P: Right foot cellulitis Right foot ulcers - 1st, 2nd, 3rd, and 4th toes NONCOMPLIANCE WITH DIALYSIS ACUTE Left arm, hand paresthesia POLYSUBSTANCE ABUSE No acute intracranial finding. ON CT HEAD MRI is more sensitive for acute infarction. Bilateral cerebral white matter changes, likely due to chronic small vessel disease. Weakness - likely from electrolyte abnormalities ESRD on HD MWF - COPD - historical, prn nebs Chronic diarrhea - Bilateral leg pain -diabetic neuropathy Ulcerative colitis - s/p colon resection Diabetes mellitus - will restart insulin Peripheral neuropathy - gabapentin renal dosing Hypertension - cont amlodipine History of DVT, on warfarin therapy History of colorectal cancer - s/p resection Subtotal colectomy. Ileoanal J- pouch H/o hepatitis C - in SVR Osteoarthritis - tylenol prn Anemia - of chronic renal disease. HX COCAINE ABUSE Elevated peak systolic velocity within the proximal left superficial femoral artery suggesting moderate to severe stenosis. There is also an elevated peak systolic velocity within the mid right superficial femoral artery suggesting mild stenosis./ PVD Abnormal waveform within the right dorsalis pedis artery suggesting hemodynamically significant proximal stenosis. No evidence of arterial occlusion. Extensive vascular calcifications. of right foot PLAN ADMIT NEPHROLOGY CONSULT HD TOMORROW 4 x ray right foot 3 VIEWS ID CONSULT NEUROCHECKS Q 4 HRS WOUND CARE NURSE CONSULT IV ROCEPHIN 1 GM Q 24 HRS change to merrem and vanc per Dr. Todd. CULTURE RIGHT FOOT WOUNDS pending sensitivities BLOOD CULTURE NEPHROLOGY CONSULT DVT PROPHYLAXIS ON COUMADIN vascular surgery consult 38 MIN PT EXAM, CHART REVIEW, > 50% of time spent with exam, chart review, pt care coordination D/W ER Justifications for Admission Other Justification History of Present Illness History of Present Illness Mr Savage is a 65yo M w/ PMHx ESRD, complicated grief, DM2 who comes to ED c/o weakness and numbness in bilateral hands. Notes he has missed dialysis today, and dialyses MWF [facility] 1 IN ER Weakness - likely from electrolyte abnormalities ESRD on HD MWF - COPD - historical, prn nebs hxChronic diarrhea - Bilateral leg pain -diabetic neuropathy hxUlcerative colitis - s/p colon resection Diabetes mellitus - will restart insulin hx polysubstance abuse He denies any chest pain, palpitations, headache, vision changes, nausea, vomiting, or shortness of breath has long hx noncompliance here, several admits, has right foot wounds as well, n ew chemical induced Consults: Nephrology, Vascular surgery, ID 01/19: AFEBRILE. IV ROCEPHIN 1 GM changed to merrem + vancomycin - ID consulted. CULTURE RIGHT FOOT WOUNDS pending sensitivities. BLOOD CULTURE. NEPHROLOGY CONSULT. Feet are quite dry and scaly. superficial ulcerative changes right forefoot // right second toe, dorsal aspects. Dry gangrene appearing 2nd toe distal portion. moderate to severely elevated peak systolic velocity of 281 cm/s within the proximal left superficial femoral artery. 01/20: Tolerated dialysis well. Afebrile. He still wants to go with conservative therapy for his foot as he does not want us.been able to drive. Tells me he has plans on 10/25/2020 and would like to be out of the hospital by then. No nausea or vomiting. No diarrhea. Wound culture pending. Half shoe ordered Afebrile. Discussed with vascular surgery and ID patient should have definitive treatment of his diabetic foot ulcer involving right 1-4th toes with surgical debridement with possible amputation to include 2nd and 3rd toes with possible 1st and 4th toes debridement. He has a court date on 01/23/2021. Will have outp atient wound care follow-up a half shoe for his right foot and return for admission for definitive treatment after discussion with vascular surgery home on 2 weeks of clotrimazole topically for fungal dermatitis and cellulitis as well as amoxicillin and doxycycline. Continue dialysis as scheduled. Vitals/I&O Vitals/I&O: Vital Signs Date Time Temp Pulse Resp B/P (MAP) Pulse Ox O2 Delivery O2 Flow Rate FiO2 01/21/21 03:00 98.7 75 16 90/55 (67) 98 98.7 01/20/21 21:45 Room Air I & O 01/20/21 01/20/21 01/21/21 15:00 23:00 07:00 Intake Total 120 ml Balance 120 ml Physical Exam Physical Exam: GENERAL: The patient is alert, appears comfortable. HEENT: Normal conjunctivae. Oropharynx clear. NECK: Supple. LUNGS: Clear to auscultation. No accessory muscle use. HEART: Normal S1 and S2. ABDOMEN: Nondistended, soft, nontender with bowel sounds present. EXTREMITIES: Trace edema in lower extremities. No cyanosis. Right second and third toes, all ulcerated, superficial. NEUROLOGIC: Alert, answering questions appropriately, but somewhat of a poor historian. General: Alert, Oriented X3, Cooperative, No acute distress Heart: Regular rate Lungs: Clear Abdomen: Normal bowel sounds, Soft, No tenderness, Other (mild edema) Extremities: No cyanosis Skin: No breakdown, Other (.Right foot with ulceration and gangrenous skin changes 2nd and 3rd toe, 1st and 4th toe tips. No erythema or swelling. Foot warm.) Labs Labs: Laboratory Tests Test 01/20/21 07:40 01/20/21 13:17 01/20/21 16:44 01/20/21 21:03 Glucose (Fingerstick) 370 mg/dL (70-99) 201 mg/dL (70-99) 308 mg/dL (70-99) 183 mg/dL (70-99) Assessment and Plan Assessmemt and Plan Problems Medical Problems: (1) Paresthesia Status: Acute Comment Review of Relevant I have reviewed the following items keron (where applicable) has been applied. Medications: Current Medications Medications (Trade) Dose Ordered Sig/Raymon Route PRN Reason Start Time Stop Time Status Last Admin Dose Admin Lidocaine HCl (Xylocaine-Mpf 1% 2ml Vial) 2 ml QMWF ONCE ID 01/20/21 10:00 01/20/21 10:01 DC 01/20/21 09:08 Clotrimazole (Lotrimin) 1 danisha BID TP 01/20/21 13:00 01/20/21 14:17 Justifications for Admission Other Justification HYPERKALEMIA, MISSED DIALYSIS TIM RIOS MD Jan 21, 2021 07:28
--- NOTE | 2021-01-21 07:56 | PDOC ---
Infectious Disease Note Subjective: Subjective pt says doing ok Without any complaints Denies fever, nausea, vomiting, shortness of breath, diarrhea, abdominal pain, rash Otherwise as above Eager for discharge home today Vital Signs: Vital Signs Vital Signs Date Time Temp Pulse Resp B/P (MAP) Pulse Ox O2 Delivery O2 Flow Rate FiO2 01/21/21 03:00 98.7 75 16 90/55 (67) 98 98.7 01/20/21 21:45 Room Air Physical Exam: PHYSICAL EXAM GENERAL: The patient is alert, appears comfortable. HEENT: Normal conjunctivae. Oropharynx clear. NECK: Supple. LUNGS: Clear to auscultation. No accessory muscle use. HEART: Normal S1 and S2. ABDOMEN: Nondistended, soft, nontender with bowel sounds present. EXTREMITIES: Trace edema in lower extremities. No cyanosis. Right second and third toes, all ulcerated, superficial. NEUROLOGIC: Alert, answering questions appropriately, but somewhat of a poor historian. Medications: Inpatient Meds: Medications reviewed. Labs: Lab Laboratory Tests Test 01/20/21 13:17 01/20/21 16:44 01/20/21 21:03 Glucose (Fingerstick) 201 mg/dL (70-99) 308 mg/dL (70-99) 183 mg/dL (70-99) Objective: Assessment: 1. Ulcerations involving the right second and third toes after using Aspercreme. Cultures positive for Dorita parapsilosis 2. Diabetes with neuropathy. 3. Chronic kidney disease, on hemodialysis. 4. Atrial fibrillation, on warfarin. Plan: Plan of Care And can be discharged home from ID standpoint on Augmentin 500 mg p.o. twice daily and doxycycline 100 mg p.o. twice daily Clotrimazole for local application 2 weeks Probiotics Vascular input noted Wound care team consulted GIL ANDRADE MD Jan 21, 2021 07:56
[2021-01-21 08:07] LABS: PROTHROMBIN TIME PATIENT 25.8 SEC (11.7-14.0)
[2021-01-21] MEDS: NEOMY/BACITR/POLYMYXIN OINT PACKET. TP SCH (09:01)
[2021-01-21] MEDS: amLODIPine BESYLATE 10 MG TABLET PO SCH (09:03)
[2021-01-21] MEDS: GABAPENTIN 300 MG CAPSULE. PO SCH ×2 (09:03→13:01)
[2021-01-21] MEDS: LACTOBACILLUS RHAMNOSUS GG 1 CAPSULE. PO SCH (09:03)
[2021-01-21] MEDS: INSULIN LISPRO 300 UNITS/3 ML VIAL. SQ SCH ×6 (09:04→17:01)
[2021-01-21] MEDS: CLOTRIMAZOLE 1% TOPICAL CREAM 14GM TUBE. TP SCH (09:05)
[2021-01-21] MEDS: HYDROcodone/APAP 5/325MG 1 TAB TABLET PO PRN ×2 (09:07→15:21)
--- NOTE | 2021-01-21 10:00 | NUR ---
assumed care at 10:00. He wants to go home. No dialysis today. right foot covered. awaiting 1/2 shoe.
--- NOTE | 2021-01-21 10:58 | PDOC ---
Renal-Progress Notes Subjective Notes Notes NO NEW COMPLAINTS History of Present Illness Hx of present illness WANTS TO GO HOME Vitals Vitals Vital Signs Date Time Temp Pulse Resp B/P (MAP) Pulse Ox O2 Delivery O2 Flow Rate FiO2 01/21/21 09:45 Room Air 01/21/21 09:03 75 90/55 01/21/21 07:00 98.1 8 97 98.1 Weight Weight [ ] I.O. Intake and Output Intake and Output 01/21/21 07:00 Intake Total 120 ml Balance 120 ml Intake Oral 120 ml # Voids 4 Labs Labs Laboratory Tests Test 01/20/21 13:17 01/20/21 16:44 01/20/21 21:03 01/21/21 07:25 Glucose (Fingerstick) 201 mg/dL (70-99) 308 mg/dL (70-99) 183 mg/dL (70-99) Prothrombin Time 25.8 SEC (11.7-14.0) Prothromb Time International Ratio 2.4 (0.8-1.1) Test 01/21/21 08:53 Glucose (Fingerstick) 318 mg/dL (70-99) Micro Micro Microbiology 01/18/21 Blood Culture - Preliminary, Resulted NO GROWTH AFTER 3 DAYS 01/17/21 Gram Stain - Final, Resulted 01/17/21 Aerobic and Anaerobic Culture - Preliminary, Resulted Review of Systems Constitutional: yes: weakness, alert, oriented Ears/Nose/Throat: Yes: no symptom reported Eyes: Yes: no symptom reported Pulmonary: Yes no symptom reported Cardiovascular: Yes no symptom reported Gastrointestional: Yes: no symptom reported Genitourinary: Yes: no symptom reported Musculoskeletal: Yes: foot pain Skin: Yes no symptom reported Psychiatric/Neurological: Yes: weakness Endocrine: Yes: no symptom reported Physical Exam General Appearance: no apparent distress Skin: warm Respiratory: bilateral CTA Heart: S1S2 Abdomen: soft, bowel sounds present Genitourinary: bladder flat Extremities: pulses present, atrophy Neurology: alert, oriented Assessment Assessment IMP ESRD ANEMIA DM II HTN AFIB R FOOT WOUNDS PROB PAD NON COMPLIANCE NEUROPATHY SUBSTANCE ABUSE PLAN HD TOMORROW HERE IF STILL INPT MIKEY NEEDED ANTIBIOTICS ID AND VASCULAR SURGERY EVAL ENC COMPLIANCE D/C PENDING MARTINEZ JENSEN MD Jan 21, 2021 10:58
[2021-01-21 11:00] VITALS: BP 138/62
--- NOTE | 2021-01-21 12:04 | PDOC ---
PROGRESS NOTES Date of Service DATE: 01/21/21 TIME: 11:52 Subjective Subjective Patient seen at the request of Wound Care. Patient is now agreeable to surgical debridement and amputation. The patient desires to discharge home, he has some social issues that need addressed this week. He is willing to return next week. Complains of right foot pain, well controlled with pain medication. Tolerating diet, denies nausea or vomiting. Objective Objective Vital Signs Date Time Temp Pulse Resp B/P (MAP) Pulse Ox O2 Delivery O2 Flow Rate FiO2 01/21/21 11:00 98.3 86 14 138/62 (87) 96 Room Air 98.3 Intake and Output0 01/21/21 07:00 Intake Total 120 ml Balance 120 ml Intake Oral 120 ml # Voids 4 Physical Exam Physical Exam Awake and alert HRR Non-labored respirations Right foot with ulceration and gangrenous skin changes 2nd and 3rd toe, 1st and 4th toe tips. No erythema or swelling. Foot warm. Assessment Assessment Problems Medical Problems: (1) Paresthesia Status: Acute Plan Plan of Care 65 year old male with diabetic foot ulcer involving right 1-4th toes. The patient would benefit from surgical debridement with possible amputation to include 2nd and 3rd toes with possible 1st and 4th toes debridement. No additional arterial intervention recommended at this time. Initially the patient desired conservative treatment, at the advice of wound care he is agreeable to proceed with surgical treatment. If patient discharges to home this could be arranged as an outpatient or readmission. Recommend continued agressive management of his diabetes. Continue warfarin until decision for surgery. Continue daily dressing changes. Antibiotics per ID. Will discuss plan of care with Dr. Mancera. Comment Review of Relevant I have reviewed the following items keron (where applicable) has been applied. Labs Laboratory Tests Test 01/19/21 16:20 01/19/21 20:22 01/20/21 04:23 01/20/21 07:40 Glucose (Fingerstick) 236 mg/dL (70-99) 133 mg/dL (70-99) 370 mg/dL (70-99) White Blood Count 4.9 x10^3/uL (4.0-11.0) Red Blood Count 3.19 x10^6/uL (4.30-5.70) Hemoglobin 9.1 g/dL (13.0-17.5) Hematocrit 27.8 % (39.0-53.0) Mean Corpuscular Volume 87 fL (79-100) Mean Corpuscular Hemoglobin 29 pg (25-35) Mean Corpuscular Hemoglobin Concent 33 g/dL (31-37) Red Cell Distribution Width 13.9 % (11.5-14.5) Platelet Count 188 x10^3/uL (140-400) Neutrophils (%) (Auto) 56 % (31-73) Lymphocytes (%) (Auto) 22 % (24-48) Monocytes (%) (Auto) 12 % (0-9) Eosinophils (%) (Auto) 9 % (0-3) Basophils (%) (Auto) 1 % (0-3) Neutrophils # (Auto) 2.8 x10^3/uL (1.8-7.7) Lymphocytes # (Auto) 1.1 x10^3/uL (1.0-4.8) Monocytes # (Auto) 0.6 x10^3/uL (0.0-1.1) Eosinophils # (Auto) 0.4 x10^3/uL (0.0-0.7) Basophils # (Auto) 0.0 x10^3/uL (0.0-0.2) Sodium Level 140 mmol/L (136-145) Potassium Level 5.5 mmol/L (3.5-5.1) Chloride Level 104 mmol/L (98-107) Carbon Dioxide Level 25 mmol/L (21-32) Anion Gap 11 (6-14) Blood Urea Nitrogen 53 mg/dL (8-26) Creatinine 7.8 mg/dL (0.7-1.3) Estimated GFR (Cockcroft-Gault) 8.5 Glucose Level 290 mg/dL (70-99) Calcium Level 8.3 mg/dL (8.5-10.1) Random Vancomycin Level 24.7 mcg/mL Test 01/20/21 13:17 01/20/21 16:44 01/20/21 21:03 01/21/21 07:25 Glucose (Fingerstick) 201 mg/dL (70-99) 308 mg/dL (70-99) 183 mg/dL (70-99) Prothrombin Time 25.8 SEC (11.7-14.0) Prothromb Time International Ratio 2.4 (0.8-1.1) Test 01/21/21 08:53 01/21/21 11:20 Glucose (Fingerstick) 318 mg/dL (70-99) 163 mg/dL (70-99) Laboratory Tests Test 01/20/21 13:17 01/20/21 16:44 01/20/21 21:03 01/21/21 07:25 Glucose (Fingerstick) 201 mg/dL (70-99) 308 mg/dL (70-99) 183 mg/dL (70-99) Prothrombin Time 25.8 SEC (11.7-14.0) Prothromb Time International Ratio 2.4 (0.8-1.1) Test 01/21/21 08:53 01/21/21 11:20 Glucose (Fingerstick) 318 mg/dL (70-99) 163 mg/dL (70-99) Microbiology 01/18/21 Blood Culture - Preliminary, Resulted NO GROWTH AFTER 3 DAYS 01/17/21 Gram Stain - Final, Resulted 01/17/21 Aerobic and Anaerobic Culture - Preliminary, Resulted Medications Current Medications Sodium Chloride (Normal Saline Flush) 3 ml QSHIFT PRN IV AFTER MEDS AND BLOOD DRAWS; Start 01/17/21 at 16:45 Ondansetron HCl (Zofran) 4 mg PRN Q4HRS PRN IV NAUSEA/VOMITING; Start 01/17/21 at 16:45 Acetaminophen (Tylenol) 650 mg PRN Q4HRS PRN PO TEMP OVER 100.4F OR MILD PAIN; Start 01/17/21 at 16:45 Docusate Sodium (Colace) 100 mg PRN BID PRN PO HARD STOOLS; Start 01/17/21 at 16:45 Albuterol Sulfate (Ventolin Neb Soln) 2.5 mg PRN Q4HRS PRN NEB SHORTNESS OF BREATH; Start 01/17/21 at 16:45 Guaifenesin (Robitussin) 200 mg PRN Q4HRS PRN PO COUGH; Start 01/17/21 at 16:45 Lorazepam (Ativan) 0.5 mg PRN Q4HRS PRN PO ANXIETY / AGITATION Last administered on 01/20/21at 21:35; Start 01/17/21 at 16:45 Amlodipine Besylate (Norvasc) 10 mg DAILY PO Last administered on 01/21/21 09:03; Start 01/18/21 at 09:00 Gabapentin (Neurontin) 300 mg TID PO Last administered on 01/21/21 09:03; Start 01/17/21 at 21:00 Acetaminophen/ Hydrocodone Bitart (Lortab 5/325) ONE HALF TO ONE TABLET... PRN Q8HRS PRN PO MODERATE TO SEVERE PAIN Last administered on 01/21/21 09:07; Start 01/17/21 at 17:15 Warfarin Sodium (Coumadin) 5 mg MoTuWeThFrSa PO Last administered on 01/20/21 18:00; Start 01/17/21 at 16:00 Warfarin Sodium (Coumadin) 3 mg QSU PO Last administered on 01/19/21 17:38; Start 01/19/21 at 16:00 Insulin Glargine (Lantus Syringe) 22 unit QHS SQ Last administered on 01/20/21 21:42; Start 01/17/21 at 21:00 Insulin Human Lispro (HumaLOG) 10 units TIDWMEALS SQ Last administered on 01/21/21 09:05; Start 01/18/21 at 08:00 Lactobacillus Rhamnosus (Culturelle) 1 cap DAILY PO Last administered on 01/18/21 08:59; Start 01/18/21 at 09:00; Stop 01/18/21 at 10:45; Status DC Warfarin Sodium (Coumadin Per Pharmacy) 1 each PRN DAILY PRN MC SEE COMMENTS Last administered on 01/20/21 13:44; Start 01/17/21 at 17:30 Ceftriaxone Sodium (Rocephin) 1 gm Q24H IVP ; Start 01/17/21 at 21:00; Stop 01/18/21 at 16:26; Status DC Pharmacy Consult (C.diff Med Screen By Rx) 1 each 1X ONCE MC Last administered on 01/17/21 20:30; Start 01/17/21 at 20:30; Stop 01/17/21 at 20:31; Status DC Zolpidem Tartrate (Ambien) 5 mg PRN QHS PRN PO INSOMNIA Last administered on 01/20/21 21:35; Start 01/17/21 at 21:15 Hydroxyzine HCl (Atarax) 25 mg PRN Q6HRS PRN PO ITCHING (1st Choice) Last administered on 01/20/21at 21:35; Start 01/17/21 at 21:15 Diphenhydramine HCl (Benadryl) 12.5 mg PRN Q6HRS PRN PO ITCHING; Start 01/17/21 at 21:15; Stop 01/17/21 at 21:33; Status DC Insulin Human Lispro (HumaLOG) 0-7 UNITS QIDACHS SQ Last administered on 1at 09:04; Start 01/18/21 at 07:30 Dextrose (Dextrose 50%-Water Syringe) 12.5 gm PRN Q15MIN PRN IV SEE COMMENTS; Start 01/17/21 at 21:15 Insulin Human Lispro (HumaLOG) 12 units 1X ONCE SQ Last administered on 01/17/21at 22:24; Start 01/17/21 at 21:30; Stop 01/17/21 at 21:31; Status DC Neomycin/ Polymyxin/ Bacitracin (Triple Antibiotic Ointment) 1 pkt DAILY TP Last administered on 01/21/21at 09:01; Start 01/17/21 at 22:00 Diphenhydramine HCl (Benadryl Oral Elixir) 12.5 mg PRN Q6HRS PRN PO ITCHING (2nd Choice) Last administered on 01/20/21at 21:35; Start 01/17/21 at 21:45 Lactobacillus Rhamnosus (Culturelle) 1 cap BID PO Last administered on 01/21/21at 09:03; Start 01/18/21 at 21:00 Sodium Chloride 1,000 ml @ 1,000 mls/hr Q1H PRN IV hypotension; Start 01/18/21 at 13:00; Stop 01/18/21 at 21:00; Status DC Albumin Human 200 ml @ 200 mls/hr 1X PRN PRN IV Hypotension; Start 01/18/21 at 13:00; Stop 01/18/21 at 21:00; Status DC Diphenhydramine HCl (Benadryl) 25 mg 1X PRN PRN IV ITCHING; Start 01/18/21 at 13:00; Stop 01/18/21 at 21:00; Status DC Diphenhydramine HCl (Benadryl) 25 mg 1X PRN PRN IV ITCHING; Start 01/18/21 at 13:00; Stop 01/18/21 at 21:00; Status DC Sodium Chloride 1,000 ml @ 400 mls/hr Q2H30M PRN IV PATENCY; Start 01/18/21 at 13:00; Stop 01/18/21 at 23:00; Status DC Lidocaine HCl (Xylocaine-Mpf 1% 2ml Vial) 2 ml 1X PRN PRN INJ FOR DIALYSIS; Start 01/18/21 at 13:00; Stop 01/18/21 at 21:00; Status DC Info (PHARMACY MONITORING -- do not chart) 1 each PRN DAILY PRN MC SEE COMMENTS; Start 01/18/21 at 14:15 Info (PHARMACY MONITORING -- do not chart) 1 each PRN DAILY PRN MC SEE COMMENTS; Start 01/18/21 at 14:15; Status UNV Vancomycin HCl (Vanco Per Pharmacy) 1 each PRN DAILY PRN MC SEE COMMENTS Last administered on 01/20/21at 13:35; Start 01/18/21 at 16:15 Vancomycin HCl 2 gm/Sodium Chloride 500 ml @ 250 mls/hr 1X ONCE IV Last administered on 01/18/21at 21:37; Start 01/18/21 at 17:00; Stop 01/18/21 at 18:59; Status DC Meropenem 500 mg/ Sodium Chloride 50 ml @ 100 mls/hr Q24H IV Last administered on 01/20/21at 17:54; Start 01/18/21 at 18:00 Vancomycin HCl (Vancomycin Random Level) 1 each 1X ONCE MC Last administered o n 01/20/21at 05:54; Start 01/20/21 at 06:00; Stop 01/20/21 at 06:01; Status DC Darbepoetin Amador (ARANESP for DIALYSIS PTS) 60 mcg WEEKLYHS SQ Last administered on 01/19/21at 22:02; Start 01/19/21 at 21:00 Sodium Chloride 1,000 ml @ 1,000 mls/hr Q1H PRN IV hypotension; Start 01/20/21 at 07:30; Stop 01/20/21 at 13:29; Status DC Sodium Chloride 1,000 ml @ 400 mls/hr Q2H30M PRN IV PATENCY; Start 01/20/21 at 07:30; Stop 01/20/21 at 19:29; Status DC Info (PHARMACY MONITORING -- do not chart) 1 each PRN DAILY PRN MC SEE COMMENTS; Start 01/20/21 at 07:30; Status UNV Lidocaine HCl (Xylocaine-Mpf 1% 2ml Vial) 2 ml QMWF ONCE ID Last administered on 01/20/21at 09:08; Start 01/20/21 at 10:00; Stop 01/20/21 at 10:01; Status DC Clotrimazole (Lotrimin) 1 danisha BID TP Last administered on 01/21/21at 09:05; Start 01/20/21 at 13:00 Vancomycin HCl (Vanco Per Pharmacy) 1 each PRN DAILY PRN MC SEE COMMENTS; Start 01/20/21 at 12:15; Status UNV Vancomycin HCl 500 mg/Sodium Chloride 100 ml @ 100 mls/hr QMWF IV ; Start 01/22/21 at 16:00 Vancomycin HCl (Vancomycin Random Level) 1 each 1X ONCE MC ; Start 01/22/21 at 06:00; Stop 01/22/21 at 06:01 Active Scripts Active Hydrocodone-Acetamin 5-325 mg (Hydrocodone/Acetaminophen) 1 Each Tablet 0.5-1 Each PO Q4-6HRS PRN Gabapentin 300 Mg Capsule 300 Mg PO TID MDD 1 Amlodipine Besylate 10 Mg Tablet 10 Mg PO DAILY MDD 1 Reported Neosporin Ointment (Neomy Sulf/Bacitrac Zn/Poly) 28.3 Gm Oint...g. 28.3 Gm TP DAILY Culturelle (Lactobacillus Rhamnosus Gg) 1 Each Capsule 1 Cap PO DAILY 7 Days Humalog (Insulin Lispro) 100 Unit/1 Ml Cartridge 10 Unit SQ TIDWMEALS Lantus Solostar (Insulin Glargine,Hum.rec.anlog) 100 Unit/1 Ml Insuln.pen 18 Unit SQ QHS Warfarin Sodium 5 Mg Tablet 2 Tab PO QFRSUN Warfarin Sodium 5 Mg Tablet 1 Tab PO QMTUWTHSA Vitals/I & O Vital Sign - Last 24 Hours 01/20/21 01/20/21 01/20/21 01/20/21 15:00 19:26 21:12 21:45 Temp 98.4 99.2 98.4 99.2 Pulse 89 84 Resp 18 20 B/P (MAP) 140/78 (98) 115/63 (80) Pulse Ox 98 94 O2 Delivery Room Air Room Air Room Air 01/20/21 01/21/21 01/21/21 01/21/21 23:00 03:00 07:00 08:00 Temp 98.0 98.7 98.1 98.0 98.7 98.1 Pulse 90 75 76 Resp 16 16 8 B/P (MAP) 107/65 (79) 90/55 (67) 154/74 (100) Pulse Ox 96 98 97 O2 Delivery Room Air Room Air 01/21/21 01/21/21 01/21/21 01/21/21 09:03 09:07 09:45 11:00 Temp 98.3 98.3 Pulse 75 86 Resp 14 B/P (MAP) 90/55 138/62 (87) Pulse Ox 96 O2 Delivery Room Air Room Air Room Air Intake and Output 01/20/21 01/20/21 01/21/21 15:00 23:00 07:00 Intake Total 120 ml Balance 120 ml Justifications for Admission Other Justification HYPERKALEMIA, MISSED DIALYSIS LEBRON DOVER APRN Jan 21, 2021 12:03
--- NOTE | 2021-01-21 12:07 | NUR ---
SW following. Discussed with RN, pt from home with family, room air, renal diet. Pt getting a half shoe and will follow with wound clinic. Discharge order for home with self care. SW notified Aime Perez. No further SW needs.
[2021-01-21] MEDS ORDERED: DOXY100C2 PO (12:10)
[2021-01-21] MEDS ORDERED: CLOTRIMAZOLE 1% TP (12:10)
[2021-01-21] MEDS ORDERED: AMOX500T PO (12:10)
[2021-01-21] MEDS ORDERED: CLOT15CR53 TP (12:10)
--- NOTE | 2021-01-21 12:16 | PDOC3 ---
Discharge Summary Visit Information Date of Admission: Jan 17, 2021 Date of Discharge: Jan 21, 2021 Admitting Diagnosis: Right foot cellulitis Final Diagnosis Problems Medical Problems: (1) Paresthesia Status: Acute Brief Hospital Course Allergies Allergies Coded Allergies Type Severity Reaction Last Updated Verified prednisone Allergy Intermediate 10/04/19 Yes Vital Signs Vital Signs Date Time Temp Pulse Resp B/P (MAP) Pulse Ox O2 Delivery O2 Flow Rate FiO2 01/21/21 11:00 98.3 86 14 138/62 (87) 96 Room Air 98.3 Lab Results Laboratory Tests Test 01/19/21 16:20 01/19/21 20:22 01/20/21 04:23 01/20/21 07:40 Glucose (Fingerstick) 236 mg/dL (70-99) 133 mg/dL (70-99) 370 mg/dL (70-99) White Blood Count 4.9 x10^3/uL (4.0-11.0) Red Blood Count 3.19 x10^6/uL (4.30-5.70) Hemoglobin 9.1 g/dL (13.0-17.5) Hematocrit 27.8 % (39.0-53.0) Mean Corpuscular Volume 87 fL (79-100) Mean Corpuscular Hemoglobin 29 pg (25-35) Mean Corpuscular Hemoglobin Concent 33 g/dL (31-37) Red Cell Distribution Width 13.9 % (11.5-14.5) Platelet Count 188 x10^3/uL (140-400) Neutrophils (%) (Auto) 56 % (31-73) Lymphocytes (%) (Auto) 22 % (24-48) Monocytes (%) (Auto) 12 % (0-9) Eosinophils (%) (Auto) 9 % (0-3) Basophils (%) (Auto) 1 % (0-3) Neutrophils # (Auto) 2.8 x10^3/uL (1.8-7.7) Lymphocytes # (Auto) 1.1 x10^3/uL (1.0-4.8) Monocytes # (Auto) 0.6 x10^3/uL (0.0-1.1) Eosinophils # (Auto) 0.4 x10^3/uL (0.0-0.7) Basophils # (Auto) 0.0 x10^3/uL (0.0-0.2) Sodium Level 140 mmol/L (136-145) Potassium Level 5.5 mmol/L (3.5-5.1) Chloride Level 104 mmol/L (98-107) Carbon Dioxide Level 25 mmol/L (21-32) Anion Gap 11 (6-14) Blood Urea Nitrogen 53 mg/dL (8-26) Creatinine 7.8 mg/dL (0.7-1.3) Estimated GFR (Cockcroft-Gault) 8.5 Glucose Level 290 mg/dL (70-99) Calcium Level 8.3 mg/dL (8.5-10.1) Random Vancomycin Level 24.7 mcg/mL Test 01/20/21 13:17 01/20/21 16:44 01/20/21 21:03 01/21/21 07:25 Glucose (Fingerstick) 201 mg/dL (70-99) 308 mg/dL (70-99) 183 mg/dL (70-99) Prothrombin Time 25.8 SEC (11.7-14.0) Prothromb Time International Ratio 2.4 (0.8-1.1) Test 01/21/21 08:53 01/21/21 11:20 Glucose (Fingerstick) 318 mg/dL (70-99) 163 mg/dL (70-99) Laboratory Tests Test 01/20/21 13:17 01/20/21 16:44 01/20/21 21:03 01/21/21 07:25 Glucose (Fingerstick) 201 mg/dL (70-99) 308 mg/dL (70-99) 183 mg/dL (70-99) Prothrombin Time 25.8 SEC (11.7-14.0) Prothromb Time International Ratio 2.4 (0.8-1.1) Test 01/21/21 08:53 01/21/21 11:20 Glucose (Fingerstick) 318 mg/dL (70-99) 163 mg/dL (70-99) Brief Hospital Course Mr Savage is a 65yo M w/ PMHx ESRD, complicated grief, DM2 who comes to ED c/o weakness and numbness in bilateral hands. Notes he has missed dialysis today, and dialyses MWF [facility] 1 IN ER Weakness - likely from electrolyte abnormalities ESRD on HD MWF - COPD - historical, prn nebs hxChronic diarrhea - Bilateral leg pain -diabetic neuropathy hxUlcerative colitis - s/p colon resection Diabetes mellitus - will restart insulin hx polysubstance abuse He denies any chest pain, palpitations, headache, vision changes, nausea, vomiting, or shortness of breath has long hx noncompliance here, several admits, has right foot wounds as well, new chemical induced Consults: Nephrology, Vascular surgery, ID 01/19: [id number]. IV ROCEPHIN 1 GM changed to merrem + vancomycin - ID consulted. CULTURE RIGHT FOOT WOUNDS pending sensitivities. BLOOD CULTURE. NEPHROLOGY CONSULT. Feet are quite dry and scaly. superficial ulcerative changes right forefoot // right second toe, dorsal aspects. Dry gangrene appearing 2nd toe distal portion. moderate to severely elevated peak systolic velocity of 281 cm/s within the proximal left superficial femoral artery. 01/20: Tolerated dialysis well. Afebrile. He still wants to go with conservative therapy for his foot as he does not want us.been able to drive. Tells me he has plans on 10/25/2020 and would like to be out of the hospital by then. No nausea or vomiting. No diarrhea. Wound culture pending. Half shoe ordered Afebrile. Discussed with vascular surgery and ID patient should have definitive treatment of his diabetic foot ulcer involving right 1-4th toes with surgical debridement with possible amputation to include 2nd and 3rd toes with possible 1st and 4th toes debridement. He has a court date on 01/23/2021. Will have outpatient wound care follow-up a half shoe for his right foot and return for admission for definitive treatment after discussion with vascular surgery home on 2 weeks of clotrimazole topically for fungal dermatitis and cellulitis as well as amoxicillin and doxycycline. Continue dialysis as scheduled. Problem list: Right foot cellulitis Right foot ulcers - 1st, 2nd, 3rd, and 4th toes NONCOMPLIANCE WITH DIALYSIS ACUTE Left arm, hand paresthesia POLYSUBSTANCE ABUSE No acute intracranial finding. ON CT HEAD MRI is more sensitive for acute infarction. Bilateral cerebral white matter changes, likely due to chronic small vessel disease. Weakness - likely from electrolyte abnormalities ESRD on HD MWF - COPD - historical, prn nebs Chronic diarrhea - Bilateral leg pain -diabetic neuropathy Ulcerative colitis - s/p colon resection Diabetes mellitus - will restart insulin Peripheral neuropathy - gabapentin renal dosing Hypertension - cont amlodipine History of DVT, on warfarin therapy History of colorectal cancer - s/p resection Subtotal colectomy. Ileoanal J- pouch H/o hepatitis C - in SVR Osteoarthritis - tylenol prn Anemia - of chronic renal disease. HX COCAINE ABUSE Elevated peak systolic velocity within the proximal left superficial femoral artery suggesting moderate to severe stenosis. There is also an elevated peak systolic velocity within the mid right superficial femoral artery suggesting mild stenosis./ PVD Abnormal waveform within the right dorsalis pedis artery suggesting hemodynamically significant proximal stenosis. No evidence of arterial occlusion. Extensive vascular calcifications. of right foot Greater than 30 minutes spent on d/c home with outpatient therapy and wound care, plan to return for surgical debridement Discharge Information Condition at Discharge: Improved Follow Up: Weeks (1) Disposition/Orders: D/C to Home Scheduled Amlodipine Besylate (Amlodipine Besylate) 10 Mg Tablet, 10 MG PO DAILY for HIGH BLOOD PRESSURE MDD 1, #60 Prescribed by: ABDIAS GREWAL on 03/03/191125 Last Action: Continued on 01/17/211718 by KACI SANDERS MD Amoxicillin (Amoxicillin) 500 Mg Tablet, 1 TAB PO BID for Cellulitis for 10 Days, #20 Prescribed by: TIM RIOS MD on 01/21/21 1210 Clotrimazole (Itch Relief) 15 Gm Cream..g., 1 DORCAS TP BID for Fungal dermatitis for 14 Days, #45 Ref 0 Prescribed by: TIM RIOS MD on 01/21/21 1210 Doxycycline Hyclate (Doxycycline Hyclate) 100 Mg Capsule, 1 CAP PO BID for Cellulitis for 10 Days, #20 Prescribed by: TIM RIOS MD on 01/21/21 1210 Gabapentin (Gabapentin) 300 Mg Capsule, 300 MG PO TID for neuopathy MDD 1, #90 Prescribed by: ABDIAS GREWAL on 03/03/191125 Last Action: Continued on 01/17/211718 by KACI SANDERS MD Insulin Glargine,Hum.rec.anlog (Lantus Solostar) 100 Unit/1 Ml Insuln.pen, 18 UNIT SQ QHS for blood sugar control , #15 Ref 3 (Reported) Entered as Reported by: DARCY CALDWELL RN on 10/02/19625 Last Action: Edited on 01/17/211953 by DOMINIC SINGH Insulin Lispro (Humalog) 100 Unit/1 Ml Cartridge, 10 UNIT SQ TIDWMEALS for blood sugar control , (Reported) Entered as Reported by: DARCY CALDWELL RN on 10/02/19625 Last Action: Converted on 01/17/211718 by KACI SANDERS MD Lactobacillus Rhamnosus Gg (Culturelle) 1 Each Capsule, 1 CAP PO DAILY for probiotic for 7 Days, #7 Ref 0 (Reported) Entered as Reported by: Nichol Church on 10/09/191422 Last Action: Converted on 01/17/211718 by KACI SANDERS MD Warfarin Sodium (Warfarin Sodium) 5 Mg Tablet, 1 TAB PO QMTUWTHSA for blood thinner, #30 (Reported) Entered as Reported by: TABITHA CLEMONS on 11/20/182142 Last Action: Edited on 01/17/211953 by DOMINIC SINGH Warfarin Sodium (Warfarin Sodium) 5 Mg Tablet, 2 TAB PO QFRSUN for history DVT, #30 (Reported) Entered as Reported by: IVY PEREZ on 03/01/19 1416 Last Action: Edited on 01/17/211953 by DOMINIC SINGH [Clotrimazole 1% Topical] 1 DORCAS DORCAS, 1 DORCAS TP BID for Fungal dermatitis for 14 Days, #28 Prescribed by: TIM RIOS MD on 01/21/21 1210 Scheduled PRN Hydrocodone/Acetaminophen (Hydrocodone-Acetamin 5-325 mg) 1 Each Tablet, 0.5-1 EACH PO Q4-6HRS PRN for PAIN, #10 Prescribed by: SHAWN PATTEN D.O. on 01/04/21 2303 Last Action: Continued on 01/17/211718 by KACI SANDERS MD Discontinued Medications Neomy Sulf/Bacitrac Zn/Poly (Neosporin Ointment) 28.3 Gm Oint...g., 28.3 GM TP DAILY for RIGHT FOOT WOUNDS, (Reported) Entered as Reported by: DOMINIC SINGH on 01/17/211955 Last Action: New Order on 01/17/211955 by DOMINIC SINGH Justicifation of Admission Dx: Justifications for Admission: Justification of Admission Dx: Yes Chronic Renal Failure: Electrolyte Abnormality TIM RIOS MD Jan 21, 2021 12:16
--- NOTE | 2021-01-21 13:20 | NUR ---
received call Dr. Garcia's office regarding surgery on 01/29 at 0730 He isd to go [facility] at 0530 to check in. He is to hold his Coumadin for 2 days before--01/26 is to be his last dose. he will need a ride home. They are planning on amputation right 2nd toe, possibly the 3rd toe and a debridement of the 1st and 4th toe. Casey was informed.
[2021-01-21 15:00] VITALS: BP 161/70
[2021-01-21] MEDS: MEROPENEM 500 MG in IV NORMAL SALINE 50ML 50 ML IV SCH (15:20)
[2021-01-21] MEDS: WARFARIN 5 MG TABLET. PO SCH (15:24)
[2021-01-21] MEDS ORDERED: HYDR-2759 PO (15:33)
--- NOTE | 2021-01-21 16:08 | NUR ---
Pharmacy Warfarin Dosing Note S: Pharmacy consulted to assist with anticoagulation therapy O: UMER VANCE is a 65 year old M with a h/o PE LABS: Last INR: 2.4 Last HGB: 9.1 Last HCT: 27.8 Last PLT: 188 Last dose of 5 mg given on 01/20/21 at 1524 Vitamin K given: N A:INR of 2.4 is within desired range. Target range for this patient is: 2 - 3. Continue home dosing. P: Warfarin dose: 5 mg Today at 1600 Bridge Therapy: None Next INR due 01/23 Pharmacy anticoagulation service will continue to follow. AYESHA JACOBO [facility], 01/21/21 7102
[2021-01-21] MEDS: VANCOMYCIN PER PHARMACY MC PRN (16:11)
--- NOTE | 2021-01-21 16:24 | NUR ---
reviewed written discharge instructions with Casey go to dialysis tomorrow. next Wednesday he is to have surgery and to be there at 0530. to quit taking Coumadin Wednesday and Wednesday before surgery. reinforced dressing change to right foot toes; supplies given. He requested pain medication and notified. He will add to the new medication list that was sent electronically. wants to stay for supper. given his last ivpb (antibiotic). verbalized understanding of these instructions.
[2021-01-22] MEDS ORDERED: VANCOMYCIN RANDOM LEVEL. MC ONE (06:00)
[2021-01-22] MEDS ORDERED: VANCOMYCIN 500 MG in IV NORMAL SALINE 100ML 100 ML IV SCH (16:00)
== END 2021-01-21 18:02 | disposition home or self-care (01) | DRG 682 ==
LOC: ER 13:35 → 6 SOUTH 15:53
PROVIDERS: ADMIT Family Medicine; ATTEND Family Medicine
PROC: 5A1D70Z Performance of Urinary Filtration, Intermittent, Less than 6 Hours Per Day (ICD-10-PCS; principal; 2021-01-18)
PROC: 5A1D70Z Performance of Urinary Filtration, Intermittent, Less than 6 Hours Per Day (ICD-10-PCS; 2021-01-20)
DX: I12.0 Hypertensive chronic kidney disease with stage 5 chronic kidney disease or end stage renal disease (principal); N18.6 End stage renal disease; L03.115 Cellulitis of right lower limb; I48.91 Unspecified atrial fibrillation; J44.9 Chronic obstructive pulmonary disease, unspecified; M19.90 Unspecified osteoarthritis, unspecified site; F17.210 Nicotine dependence, cigarettes, uncomplicated; E11.40 Type 2 diabetes mellitus with diabetic neuropathy, unspecified; E11.51 Type 2 diabetes mellitus with diabetic peripheral angiopathy without gangrene; E11.22 Type 2 diabetes mellitus with diabetic chronic kidney disease; Z51.5 Encounter for palliative care; F19.10 Other psychoactive substance abuse, uncomplicated; D63.1 Anemia in chronic kidney disease; E11.621 Type 2 diabetes mellitus with foot ulcer; L97.519 Non-pressure chronic ulcer of other part of right foot with unspecified severity; Z91.15 Patient's noncompliance with renal dialysis; Z99.2 Dependence on renal dialysis; Z90.49 Acquired absence of other specified parts of digestive tract; Z79.01 Long term (current) use of anticoagulants; Z85.048 Personal history of other malignant neoplasm of rectum, rectosigmoid junction, and anus; Z86.718 Personal history of other venous thrombosis and embolism; Z91.19 Patient's noncompliance with other medical treatment and regimen; Z88.8 Allergy status to other drugs, medicaments and biological substances; Z83.3 Family history of diabetes mellitus; Z82.5 Family history of asthma and other chronic lower respiratory diseases; Z82.49 Family history of ischemic heart disease and other diseases of the circulatory system; Z79.4 Long term (current) use of insulin; Z79.899 Other long term (current) drug therapy
CPT/HCPCS: 36415; 70450; 73630; 80048; 80053; 80069; 80202; 82962; 83735; 84484; 85025; 85610; 87040; 87071; 87075; 93005; 93925; 99285; J0882; J1815; J2185; J3370; J3490; J7040; G0378

== ENCOUNTER 2021-01-29 06:13 | Day surgery (SDC) | payer MEDICARE ==
[~2021-01-29] VITALS: Ht 190.5 cm; Wt 81.6 kg
[~2021-01-29 06:13] MED LIST changes: +AMOX500T PO; +CLOT15CR53 TP; +CLOTRIMAZOLE 1% TP; +DOXY100C2 PO; +HYDROmorphone 2 MG/ML VIAL IVP PRN; +IV RINGERS,LACTATED 1000ML 1,000 ML IV SCH; +NEOM28.32 TP; +PROCHLORPERAZINE 10 MG/2 ML VIAL. IVP PRN; +fentaNYL PF VIAL 100 MCG/2 ML VIAL IVP PRN
[2021-01-29] MEDS ORDERED: LIDOCAINE 2% PF 5 ML VIAL. ONE (07:05)
[2021-01-29] MEDS ORDERED: DEXAMETHASONE SOD PHOS 4 MG/ML VIAL ONE (07:05)
[2021-01-29] MEDS ORDERED: ONDANSETRON PF 4 MG/2 ML VIAL. ONE (07:05)
[2021-01-29] MEDS ORDERED: PROPOFOL 10 MG/ML (20ML) VIAL. IV ONE (07:05)
[2021-01-29] MEDS ORDERED: IV NORMAL SALINE 1000ML BAG 1,000 ML IV SCH (07:45)
--- NOTE | 2021-01-29 07:55 | DISCH ---
DISCHARGE INSTRUCTIONS Condition on Discharge Condition on Discharge: Stable Activity After Discharge Activity Instructions for Disc: Activity as tolerated Bathing Instructions: Shower-keep dressing dry Lifting Instructions after Dis: No heavy lifting, No pulling or pushing, Do not lift >10 pounds Exercise Instruction after Dis: Progress as tolerated Driving Instructions after Dis: Do not drive today Weight Bearing Status after Di: Other, see below (may ambulate with front off- loading shoe) Diet after Discharge Diet after Discharge: Diabetic No Calorie Level Diet Texture: Regular Liquid Texture: Thin Liquid Swallowing Supervision: None needed Wound Incision Care Wound/Incision Care: Keep wound/cast CDI, Keep wound elevated Wound Care Equipment: Dressings Contacting the DRJessica after DC Call your doctor for: If your condition worsens Follow-Up Follow up with: Dr. Mancera in 3 weeks call for appointment [phone] Treatment/Equipment after DC Adaptive Equipment Issued: LEBRON Cool APRN January 29, 2021 07:55
--- NOTE | 2021-01-29 07:57 | DISCH ---
DISCHARGE INSTRUCTIONS Condition on Discharge Condition on Discharge: Stable Activity After Discharge Activity Instructions for Disc: Activity as tolerated Bathing Instructions: Shower-keep dressing dry Lifting Instructions after Dis: No heavy lifting, No pulling or pushing, Do not lift >10 pounds Exercise Instruction after Dis: Progress as tolerated Driving Instructions after Dis: Do not drive today Weight Bearing Status after Di: Other, see below (may ambulate with front off- loading shoe) Diet after Discharge Diet after Discharge: Diabetic No Calorie Level Diet Texture: Regular Liquid Texture: Thin Liquid Swallowing Supervision: None needed Wound Incision Care Wound/Incision Care: Keep wound/cast CDI, Keep wound elevated Wound Care Equipment: Dressings Contacting the DRJessica after DC Call your doctor for: If your condition worsens Follow-Up Follow up with: Dr. Mancera in 3 weeks call for appointment [phone] Treatment/Equipment after DC Adaptive Equipment Issued: Zeferino Warfarin Follow-Up Warfarin Follow UP: Follow up in one week for monitoring LEBRON DOVER APRN January 29, 2021 07:57
[2021-01-29] MEDS ORDERED: INSULIN LISPRO 100 UNIT/ML 3ML VIAL for OP,RR ONLY. SQ PRN (08:00)
[2021-01-29] MEDS ORDERED: fentaNYL PF VIAL 100 MCG/2 ML VIAL ONE (08:10)
[2021-01-29 08:14] LABS: BASO # 0.1 x10^3/uL (0.0-0.2); BASO % 2 % (0-3); EOS # 0.2 x10^3/uL (0.0-0.7); EOS % 3 % (0-3); HEMATOCRIT 29.7 % (39.0-53.0); HEMOGLOBIN 9.7 g/dL (13.0-17.5); LYMPH # 0.9 x10^3/uL (1.0-4.8); LYMPH % 16 % (24-48); MEAN CORPUSCULAR HEMOGLOBIN 28 pg (25-35); MEAN CORPUSCULAR HGB CONC 33 g/dL (31-37); MEAN CORPUSCULAR VOLUME 86 fL (79-100); MONO # 0.5 x10^3/uL (0.0-1.1); MONO % 8 % (0-9); NEUT # 4.2 x10^3/uL (1.8-7.7); NEUT % 71 % (31-73); PLATELET COUNT 243 x10^3/uL (140-400); RED BLOOD COUNT 3.47 x10^6/uL (4.30-5.70); RED CELL DISTRIBUTION WIDTH 14.2 % (11.5-14.5); WHITE BLOOD COUNT 5.9 x10^3/uL (4.0-11.0)
[2021-01-29 08:25] LABS: PROTHROMBIN TIME PATIENT 22.5 SEC (11.7-14.0)
[2021-01-29 08:27] LABS: CALCIUM 8.5 mg/dL (8.5-10.1); CREATININE 13.4 mg/dL (0.7-1.3); GFR 4.5
[2021-01-29] MEDS ORDERED: PHENYLEPHRINE in 0.9% NACL PF 1 MG/10 ML SYRINGE. IV ONE (08:31)
[2021-01-29] MEDS ORDERED: ePHEDrine PF IN SALINE 50 MG/10 ML SYRINGE. IV ONE (08:31)
[2021-01-29 08:33] LABS: POTASSIUM 6.3 mmol/L (3.5-5.1)
[2021-01-29] MEDS ORDERED: SEVOFLURANE 31 TO 60 MINUTES. IH ONE (08:37)
--- NOTE | 2021-01-29 08:42 | PDOC ---
BRIEF OPERATIVE NOTE Date: January 29, 2021 Pre-Op Diagnosis Multiple toe gangrene right foot Post-Op Diagnosis same Procedure Performed Right second and third toe closed amputation Excisional debridement right first and fourth toes Surgeon Dr. Mancera Radio Interference Trouble Shooter Lebron Dover NP Anesthesia Type: General Blood Loss 20cc Specimens Obtained right 1,2nd toes culture 2nd toe Findings adequate arterial bleeding Complications none Operative Note see dictated note LEBRON DOVER ASSISTANT PURCHASING MANAGER January 29, 2021 08:42
[2021-01-29] MEDS ORDERED: MORPHINE SULFATE 2 MG/ML VIAL. ONE (09:09)
[2021-01-29] MEDS: MORPHINE SULFATE 2 MG/ML VIAL. IVP PRN ×2 (09:10→09:28)
[2021-01-29] MEDS ORDERED: HYDROmorphone 2 MG/ML VIAL ONE (09:29)
[2021-01-29] MEDS ORDERED: HYDROcodone/APAP 7.5/325MG 1 TAB TABLET PO ONE (09:30)
[2021-01-29 09:41] VITALS: BP 147/76
--- NOTE | 2021-01-29 09:46 | OP ---
DATE OF SURGERY: 01/29/2021 PREOPERATIVE DIAGNOSIS: Gangrene of the right second and third toes with ulceration of the right great and fourth toes with eschar. POSTOPERATIVE DIAGNOSES: 1. Gangrene of the right second and third toes with ulceration of the right great and fourth toes with eschar. 2. End-stage renal disease. 3. Diabetes with vascular disease. OPERATIONS PERFORMED: 1. Amputation of the right second and third toes. 2. Debridement of great and fourth toes. SURGEON: Chun Mancera MD MATRIX DRIER TENDER: Karen Jo NP ANESTHESIA: General. INDICATIONS: This is a 65-year-old gentleman who has diabetes with end-stage renal disease. He has developed gangrene of his right second and third toe tips with ulceration of the great toe tip and fourth toe. He has undergone prior vascular evaluation and that was felt to be adequate. The operation, risks and benefits were explained to the patient. He understood and wished to proceed. OPERATIVE FINDINGS: The patient had excellent bleeding from the amputation site. The right great toe ulcer did not bleed extremely well and he may need further amputation of the great toe at some point in time. DESCRIPTION OF PROCEDURE: The patient remained on his bed and a general anesthetic was administered by Anesthesia. A timeout was called and the correct patient, correct operation and correct operative site were all verified. The right foot was prepped with Betadine. Incisions were then made along the base of the second and third toes, which were obviously gangrenous. Resection of the distal phalanx was then done of the second and third toes. A rongeur was used to resect portions of the proximal phalanx, but not including the metatarsal head. The flexor and extensor tendons likewise were resected. There was excellent bleeding and no evidence of obvious infection. Cultures were obtained of the distal phalanx and sent for aerobes and anaerobes. The wound was then copiously irrigated and then closed with interrupted 4-0 nylon sutures. The right great toe tip was debrided using a scalpel. Partial-thickness debridement was carried out which was excisional. There was marginal bleeding, but the tissue did appear viable. There was eschar over the lateral aspect of the fourth toe which was removed. Xeroform gauze was placed on all operative sites followed by a bulky gauze and compression dressing. The patient tolerated the procedure well and was taken to the recovery room in satisfactory condition. ESTIMATED BLOOD LOSS: Minimal. DRAINS: None. SPECIMEN: Proximal bone culture from the second toe. MARTA/MARK DR: MARTA/ran TID: [id number]
[2021-01-29] MEDS ORDERED: HYDR-2759 PO (09:47)
--- NOTE | 2021-02-03 14:07 | PATHOLOGY ---
[facility] Accession Number: [id number] . 01 Material submitted: . toe - RIGHT 2ND TOE AND RIGHT 3RD TOE. Modifiers: right, second, third . 01 Clinical history: . ATHEROSCLEROSIS [place] ARTERIES RIGHT 2ND TOE AMPUTATION . 02 Diagnosis: Right second and right third toe, amputation: - Gangrenous necrosis, ulceration, and acute cellulitis of toes. - Proximal amputation margins negative for acute cellulitis/osteomyelitis. (JPM:yvonne; 01/31/2021) [facility] 02/03/2021 1258 Local . 02 Electronically signed: . Urban Hayden MD, Pathologist NPI- [id number] . 01 Gross description: . The specimen is received in formalin, labeled "Casey Savage, right second toe and right third toe". Received are two amputated digits measuring 3.4 x 2.5 x 2.2 and 4.3 x 2.1 x 2.1 cm in greatest dimensions. Both bone margins are jagged in appearance. The skin and soft tissue margins are inked black. On the smaller toe, the nail is present displaying a light castellon and thickened appearance. The epidermal surface displays a poorly circumscribed, irregular in contour and light castellon to light brown lesion measuring 3.1 x 1.0 cm, which is 0.8 cm from the closest skin margin. On the larger toe, the nail is absent. The epidermal surface displays a poorly circumscribed, flat and light castellon to brown-black lesion measuring 5.0 x 1.7 cm, which is 0.3 cm from the closest skin margin. The specimen is submitted representatively as follows: . A1 longitudinal cross-section through bone margin of smaller toe, following decalcification A2 longitudinal cross-section through bone margin of larger toe, following decalcification. (CAA; 01/30/2021) QAC/QAC 01/31/2021 1754 Local . 02 Pathologist provided ICD-10: L98.499, L03.031, I96 . 02 CPT . 747461, 409467 Specimen Comment: A courtesy copy of this report has been sent to [phone] Specimen Comment: Report sent to Performed at: 01 [facility] [address] [facility] [address], [place] [id number] MD Enrike Wu MD Phone: [phone] Performed at: [facility] [address] [place], [place] [id number] MD Urban Hayden MD Phone: [phone]
== END 2021-01-29 10:18 | disposition home or self-care (01) ==
LOC: SURG 06:13
PROVIDERS: ATTEND Surgery
DX: I96 Gangrene, not elsewhere classified (principal); E11.621 Type 2 diabetes mellitus with foot ulcer; L97.519 Non-pressure chronic ulcer of other part of right foot with unspecified severity; I12.0 Hypertensive chronic kidney disease with stage 5 chronic kidney disease or end stage renal disease; N18.6 End stage renal disease; E11.22 Type 2 diabetes mellitus with diabetic chronic kidney disease; I48.91 Unspecified atrial fibrillation; M19.90 Unspecified osteoarthritis, unspecified site; Z87.891 Personal history of nicotine dependence; Z79.4 Long term (current) use of insulin; Z79.899 Other long term (current) drug therapy; Z88.8 Allergy status to other drugs, medicaments and biological substances; Z98.890 Other specified postprocedural states; Z90.49 Acquired absence of other specified parts of digestive tract; Z99.2 Dependence on renal dialysis; Z20.822 Contact with and (suspected) exposure to COVID-19
CPT/HCPCS: 11044; 28810; 36415; 80048; 82962; 85025; 85610; 87071; 87075; 87426; A6253; A6402; A6449; J0690; J1100; J1170; J2270; J2370; J2405; J2704; J3010; J7040

== ENCOUNTER 2021-03-01 14:33 | Inpatient (IN) | payer MEDICARE ==
[~2021-03-01] VITALS: Ht 190.5 cm; Wt 87.7 kg
[~2021-03-01 14:33] MED LIST changes: -HYDROmorphone 2 MG/ML VIAL IVP PRN; -IV RINGERS,LACTATED 1000ML 1,000 ML IV SCH; +MIRT-7 PO; -MIRT15TA3 PO; -PROCHLORPERAZINE 10 MG/2 ML VIAL. IVP PRN; -fentaNYL PF VIAL 100 MCG/2 ML VIAL IVP PRN
[2021-03-01] MEDS ORDERED: VANCOMYCIN PER PHARMACY MC ONE (15:15)
[2021-03-01] MEDS ORDERED: PIPERACILLIN/TAZOBACTAM 4.5 GM in IV NORMAL SALINE 100ML 100 ML IV ONE (15:30)
[2021-03-01] MEDS ORDERED: VANCOMYCIN 2 GM in IV NORMAL SALINE 500ML BAG 500 ML IV ONE (16:00)
--- NOTE | 2021-03-01 16:04 | RAD ---
Exam Date: 03/01/2021 3:20 PM XR FOOT_RIGHT 3 VIEWS Indication: Reason: right great toe infection / Spl. Instructions: / History: FINDINGS/ IMPRESSION: The patient's first toe no displaced dorsally. No definite osseous destructive changes are seen to co nfirm acute osteomyelitis, though sensitivity for osteomyelitis is limited on radiographs. Status pos t amputation of the second and third toes at the bases of the proximal phalanges. Prominent vascular calcifications are noted. Bones are diffusely osteopenic which limits evaluation. Suboptimal position ing further limits evaluation. There is soft tissue swelling of the toes. No displaced acute fracture or dislocation. Electronically signed by: Joseph Lua MD (03/01/2021 4:02 PM) EMIGDIO
--- NOTE | 2021-03-01 16:08 | PHYS DOC ---
Past Medical History Past Medical History: Cancer, Diabetes-Type I, DVT, Renal Failure, Other Additional Past Medical Histor: ulcerative colitis, coloncancer (ANEL SRINIVASAN SHUTTLE CAR OPERATOR) Past Surgical History: Other Additional Past 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, 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, R arm dialysis (ANEL SRINIVASAN SHUTTLE CAR OPERATOR) Smoking Status: Never Smoker Alcohol Use: Rarely Drug Use: None (ANEL SRINIVASAN SHUTTLE CAR OPERATOR) General Adult EDM: Chief Complaint: LOWER EXT PAIN HPI: HPI: Patient is a 65 year old male with history of diabetes type 2, end-stage kidney disease on dialysis Wednesday, Wednesday, Wednesday, last dialyzed a week ago, who presents today complaining of 10 out of 10 right foot pain, symptoms are chronic. He states today the home health nurse came and assessed his right great toe and noted it could be infected. Patient states he had his right second and third toes amputated on 29 Jan 2021. Patient denies any fever, denies any nausea or vomiting. (ANEL SRINIVASAN SHUTTLE CAR OPERATOR) Review of Systems: Review of Systems: Constitutional: Denies fever or chills. [] Eyes: Denies change in visual acuity. [] HENT: Denies nasal congestion or sore throat. [] Respiratory: Denies cough or shortness of breath. [] Cardiovascular: Denies chest pain or edema. [] GI: Denies abdominal pain, nausea, vomiting, bloody stools or diarrhea. [] : Denies dysuria. [] Musculoskeletal: Denies back pain or joint pain. [] Integument: Reports right great toe infection, right foot pain Neurologic: Denies headache, focal weakness or sensory changes. [] Psychiatric: Denies depression or anxiety. [] (ANEL SRINIVASAN SHUTTLE CAR OPERATOR) Heart Score: C/O Chest Pain: N/A Risk Factors: Risk Factors: DM, Current or recent (<one month) smoker, HTN, HLP, family history of CAD, obesity. Risk Scores: Score 0 - 3: 2.5% MACE over next 6 weeks - Discharge Home Score 4 - 6: 20.3% MACE over next 6 weeks - Admit for Clinical Observation Score 7 - 10: 72.7% MACE over next 6 weeks - Early Invasive Strategies (ANEL SRINIVASAN SHUTTLE CAR OPERATOR) Current Medications: Current Medications Medications (Trade) Dose Ordered Sig/Raymon Start Time Stop Time Status Last Admin Dose Admin Morphine Sulfate (Morphine Sulfate) 4 mg PRN Q15MIN PRN 03/01/21 15:15 03/01/21 23:00 Piperacillin Sod/ Tazobactam Sod 4.5 gm/Sodium Chloride 100 ml @ 200 mls/hr 1X ONCE 03/01/21 15:30 03/01/21 15:59 DC Vancomycin HCl (Vanco Per Pharmacy) 1 each 1X ONCE 03/01/21 15:15 03/01/21 15:16 DC Vancomycin HCl 2 gm/Sodium Chloride 500 ml @ 250 mls/hr 1X ONCE 03/01/21 16:00 03/01/21 17:59 (ANEL SRINIVASAN SHUTTLE CAR OPERATOR) Allergies: Allergies: Allergies Coded Allergies Type Severity Reaction Last Updated Verified prednisone Allergy Intermediate 01/29/21 Yes (ANEL SRINIVASAN APRN) Physical Exam: PE: Constitutional: Well developed, well nourished, no acute distress, non-toxic appearance. [] HENT: Normocephalic, atraumatic, bilateral external ears normal, oropharynx moist, no oral exudates, nose normal. [] Eyes: PERRLA, EOMI, conjunctiva normal, no discharge. [] Neck: Normal range of motion, no tenderness, supple, no stridor. [] Cardiovascular:Heart rate regular rhythm, no murmur [] Lungs & Thorax: Bilateral breath sounds clear to auscultation [] Abdomen: Bowel sounds normal, soft, no tenderness, no masses, no pulsatile masses. [] Skin: Right second and third toes are missing, there is some trace drainage noted on the amputation site, right great toe the nail bed has been lifted off the nail bed, there is a wound on top of the foot roughly 6 x 3 cm with necrosis on the sides. +2 right pedal pulse. Mild chronic edema noted to bilateral lower extremities. Negative Homans' sign bilaterally Back: No tenderness, no CVA tenderness. [] Extremities: No tenderness, no cyanosis, no clubbing, range of motion intact] Neurologic: Alert and oriented X 3, normal motor function, normal sensory function, no focal deficits noted. [] Psychologic: Affect normal, judgement normal, mood normal. [] (ANEL SRINIVASAN SHUTTLE CAR OPERATOR) Current Patient Data: Vital Signs: Vital Signs Date Time Temp Pulse Resp B/P (MAP) Pulse Ox O2 Delivery O2 Flow Rate FiO2 03/01/21 14:50 98.8 86 16 197/92 (127) 100 Room Air 98.8 (BRANMARYLINANEL Ram SHUTTLE CAR OPERATOR) EKG: EK interpreted by Dr. Cardona sinus rhythm heart rate 85 no STEMI [] (ANEL SRINIVASAN SHUTTLE CAR OPERATOR) Radiology/Procedures: Radiology/Procedures: []PROCEDURE: VENOUS LOWER EXTREMITY RIGHT Exam Date: 03/01/2021 3:26 PM US DPLX VENOUS EXTREMITY LOWER RT Indication: Reason: right LE pain and swelling / Spl. Instructions: / History: INDICATION: Lower extremity pain/swelling TECHNIQUE: Grayscale sonogram, color Doppler, and spectral Doppler waveform analysis of the lower extremity venous system was performed on the right. FINDINGS: The right common femoral, superficial femoral, central greater saphenous, popliteal, posterior tibial and peroneal veins are compressible and demonstrate normal color Doppler flow and normal spontaneous phasic waveforms or normal response to augmentation. The calf veins are difficult to visualize due to subcutaneous edema. IMPRESSION: No evidence of deep venous thrombosis in the right lower extremity. Electronically signed by: Judith Lua MD (03/01/2021 5:19 PM) MICHAELACOREY DICTATED and SIGNED BY: JUDITH LUA MD DATE: 03/01/21 [id number] PROCEDURE: FOOT RIGHT 3V Exam Date: 03/01/2021 3:20 PM XR FOOT_RIGHT 3 VIEWS Indication: Reason: right great toe infection / Spl. Instructions: / History: FINDINGS/ IMPRESSION: The patient's first toe no displaced dorsally. No definite osseous destructive changes are seen to confirm acute osteomyelitis, though sensitivity for osteomyelitis is limited on radiographs. Status post amputation of the second and third toes at the bases of the proximal phalanges. Prominent vascular calcifications are noted. Bones are diffusely osteopenic which limits evaluation. Suboptimal positioning further limits evaluation. There is soft tissue swelling of the toes. No displaced acute fracture or dislocation. Electronically signed by: Judith Lua MD (03/01/2021 4:02 PM) MICHAELA-COREY DICTATED and SIGNED BY: JUDITH LUA MD DATE: 03/01/21 [id number] 0 (ANEL SRINIVASAN APRN) Course & Med Decision Making: Course & Med Decision Making Pertinent Labs and Imaging studies reviewed. (See chart for details) This is a 65-year-old male patient presented to the ED today complaining of right great toe infection and pain to the right foot. Patient had his second and third toes amputated Jan 29 2021. CBC with a normal WBC, CMP with potassium of 7.2, EKG is normal. Creatinine of 14.8 with BUN of 69. Lactic is normal. Procalcitonin is normal. Venous Doppler of the right lower extremity is negative for DVT. Patient had arterial Doppler done on 01/17/2021 which showed some stenosis on the right lower extremity but no complete occlusions Spoke with Dr. Shah who stated somebody will come and do dialysis on patient today [address] Garcia, she states to keep patient n.p.o. Spoke with Dr. Rivero who accepted patient for admission (ANEL SRINIVASAN APRN) Dragon Disclaimer: Dragon Disclaimer: This electronic medical record was generated, in whole or in part, using a voice recognition dictation system. (ANEL SRINIVASAN APRN) Departure Departure Impression: Primary Impression: Hyperkalemia Additional Impressions: ESRD (end stage renal disease) on dialysis Toe infection Disposition: ADMITTED INPATIENT Referrals: UNKNOWN PCP NAME (PCP) Attending Signature Attending Signature I have reviewed the PA/COLLECTION OFFICER's note and plan of care. I was available for consultation as needed during the patient's visit in the emergency department. I agree with the clinical impression, plan, and disposition. (SHAWN PATTEN DO) ANEL SRINIVASAN APRN Mar 01, 2021 16:08 SHAWN PATTEN DO Mar 02, 2021 04:59
[2021-03-01 16:22] LABS: BASO # 0.1 x10^3/uL (0.0-0.2); BASO % 1 % (0-3); EOS # 0.2 x10^3/uL (0.0-0.7); EOS % 2 % (0-3); HEMATOCRIT 28.3 % (39.0-53.0); LYMPH # 0.9 x10^3/uL (1.0-4.8); LYMPH % 13 % (24-48); MEAN CORPUSCULAR HEMOGLOBIN 28 pg (25-35); MEAN CORPUSCULAR HGB CONC 32 g/dL (31-37); MEAN CORPUSCULAR VOLUME 87 fL (79-100); MONO # 0.8 x10^3/uL (0.0-1.1); MONO % 12 % (0-9); NEUT # 5.1 x10^3/uL (1.8-7.7); NEUT % 73 % (31-73); PLATELET COUNT 174 x10^3/uL (140-400); RED BLOOD COUNT 3.25 x10^6/uL (4.30-5.70); RED CELL DISTRIBUTION WIDTH 14.8 % (11.5-14.5)
--- NOTE | 2021-03-01 16:22 | EKG ---
[facility] [address] [place] [address] Test Date: 2021-03-01 Test Time: 15:28:12 Pat Name: UMER VANCE Department: Room: Gender: M Radio Tester: : 1955 Requested By: ANEL SRINIVASAN Order Number: [id number] Reading MD: Measurements Intervals [place] Rate: 85 P: 56 MI: 154 QRS: 17 QRSD: 104 T: 29 QT: 380 QTc: 458 Interpretive Statements SINUS RHYTHM QRS(T) CONTOUR ABNORMALITY CONSISTENT WITH ANTEROSEPTAL INFARCT PROBABLY OLD ABNORMAL ECG RI6.01 No previous ECG available for comparison
[2021-03-01] MEDS: MORPHINE SULFATE 4 MG/ML VIAL. IV/SQ PRN ×2 (16:25→17:57)
[2021-03-01 16:40] LABS: ALBUMIN 2.9 g/dL (3.4-5.0); ALBUMIN/GLOBULIN RATIO 0.6 (1.0-1.7); CALCIUM 8.5 mg/dL (8.5-10.1); CREATININE 14.8 mg/dL (0.7-1.3); MAGNESIUM 2.2 mg/dL (1.8-2.4); TOTAL BILIRUBIN 0.2 mg/dL (0.2-1.0); TOTAL PROTEIN 7.4 g/dL (6.4-8.2)
[2021-03-01 16:44] LABS: POTASSIUM 7.2 mmol/L (3.5-5.1)
--- NOTE | 2021-03-01 17:21 | RAD ---
Exam Date: 03/01/2021 3:26 PM US DPLX VENOUS EXTREMITY LOWER RT Indication: Reason: right LE pain and swelling / Spl. Instructions: / History: INDICATION: Lower extremity pain/swelling TECHNIQUE: Grayscale sonogram, color Doppler, and spectral Doppler waveform analysis of the lower ex tremity venous system was performed on the right. FINDINGS: The right common femoral, superficial femoral, central greater saphenous, popliteal, posterior tibial and peroneal veins are compressible and demonstrate normal color Doppler flow and normal spontaneous phasic waveforms or normal response to augmentation. The calf veins are difficult to visualize due t o subcutaneous edema. IMPRESSION: No evidence of deep venous thrombosis in the right lower extremity. Electronically signed by: Joseph Lua MD (03/01/2021 5:19 PM) SANTI
[2021-03-01] MEDS ORDERED: ONDANSETRON PF 4 MG/2 ML VIAL. IV PRN (18:30)
[2021-03-01] MEDS: MORPHINE SULFATE 4 MG/ML VIAL. IV PRN ×2 (19:47→23:09)
--- NOTE | 2021-03-01 19:56 | PDOC1 ---
History and Physical Date of Service: DOS: DATE: 03/01/21 TIME: 19:48 Chief Complaint: Chief Complain: Right foot pain History of Present Illness: HPI: 65-year-old male with past medical history of diabetes mellitus type 2, ESRD MWF with HD who was dialyzed last week ago who comes today complaining of 10 out of 10 right foot pain. Patient has had multiple amputations in his right toes and today he does have a large first digit toe with the nail avulsed. Patient has also missed 1 week of dialysis because he was unable to get transportation and his car broke down. Currently denies any fevers, chest pain, abdominal pain, dysuria, bloody stools or confusion or swelling. Venous Doppler of the right lower extremity is negative for DVT. Patient had arterial Doppler done on 01/17/2021 which showed some stenosis on the right lower extremity but no complete occlusions Spoke with Dr. Shah who stated somebody will come and do dialysis on patient today [address] Garcia, she states to keep patient n.p.o. at midnight Past Medical/Surgical History: PMH/PSH: Past Medical History: Cancer, Diabetes-Type II, DVT, ESRD on HD MWF, ulcerative colitis, coloncancer Past Surgical History: Colon resection with colostomy takedown afterwards, 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, history of right foot ulceration with gangrenous second and third toes first and fourth toe tips. Allergies: Allergies: Coded Allergies: prednisone (Verified Allergy, Intermediate, 01/29/21) PT STATES LEG BECAME SWOLLEN FROM TAKING AND GOT A BLOOD CLOT Family History: Family History: Reviewed with no relevant findings Social History: Social History: Smoking Status: Current smoker 1 cigarette/day Alcohol Use: Rarely Drug Use: Occasional marijuana Current Medications: Current Medications Current Medications Piperacillin Sod/ Tazobactam Sod 4.5 gm/Sodium Chloride 100 ml @ 200 mls/hr 1X ONCE IV Last administered on 03/01/21at 16:25; Start 03/01/21 at 15:30; Stop 03/01/21 at 15:59; Status DC Vancomycin HCl (Vanco Per Pharmacy) 1 each 1X ONCE MC ; Start 03/01/21 at 15:15; Stop 03/01/21 at 15:16; Status DC Morphine Sulfate (Morphine Sulfate) 4 mg PRN Q15MIN PRN IV/SQ PAIN GREATER THAN 3/10 Last administered on 03/01/21at 17:57; Start 03/01/21 at 15:15; Stop 03/01/21 at 23:00 Vancomycin HCl 2 gm/Sodium Chloride 500 ml @ 250 mls/hr 1X ONCE IV Last administered on 03/01/21at 17:00; Start 03/01/21 at 16:00; Stop 03/01/21 at 17:59; Status DC Ondansetron HCl (Zofran) 4 mg PRN Q8HRS PRN IV NAUSEA/VOMITING; Start 03/01/21 at 18:30; Stop 03/02/21 at 18:29 Morphine Sulfate (Morphine Sulfate) 4 mg PRN Q2HR PRN IV PAIN Last administered on 03/01/21at 19:47; Start 03/01/21 at 18:30; Stop 03/02/21 at 18:29 Active Scripts Active Hydrocodone-Acetamin 5-325 mg (Hydrocodone/Acetaminophen) 1 Each Tablet 1 Each PO Q4HRS PRN 5 Days Itch Relief (Clotrimazole) 15 Gm Cream..g. 1 Luiza TP BID 14 Days Gabapentin 300 Mg Capsule 300 Mg PO TID MDD 1 Amlodipine Besylate 10 Mg Tablet 10 Mg PO DAILY MDD 1 Reported Culturelle (Lactobacillus Rhamnosus Gg) 1 Each Capsule 1 Cap PO DAILY 7 Days Humalog (Insulin Lispro) 100 Unit/1 Ml Cartridge 10 Unit SQ TIDWMEALS Lantus Solostar (Insulin Glargine,Hum.rec.anlog) 100 Unit/1 Ml Insuln.pen 18 Unit SQ QHS Warfarin Sodium 5 Mg Tablet 2 Tab PO QFRSUN Warfarin Sodium 5 Mg Tablet 1 Tab PO QMTUWTHSA ROS: Review of Systems Review of System REVIEW OF SYSTEMS: GENERAL: Denies weakness SKIN: No bruising, hair changes or rashes. EYES: No blurred, double or loss of vision. NOSE AND THROAT: No history of nosebleeds, hoarseness or sore throat. HEART: No history of palpitations, chest pain or shortness of breath on exertion. LUNGS: Denies cough, hemoptysis, wheezing or shortness of breath. GASTROINTESTINAL: Denies changes in appetite, nausea, vomiting, diarrhea or constipation. GENITOURINARY: No history of frequency, urgency, hesitancy or nocturia. NEUROLOGIC: Denies history of numbness, tingling, or tremor. PSYCHIATRIC: No history of panic, anxiety or depression. ENDOCRINE: No history of heat or cold intolerance, polyuria or polydipsia. EXTREMITIES: Denies joint pain, pain on walking or stiffness. Physical Exam: Vital Signs: Vital Signs Date Time Temp Pulse Resp B/P (MAP) Pulse Ox O2 Delivery O2 Flow Rate FiO2 03/01/21 19:47 Room Air 03/01/21 17:57 16 94 03/01/21 14:50 98.8 86 197/92 (127) 98.8 Physcial Exam: GEN: No apparent distress. Alert and oriented HEENT: Normal cephalic, atraumatic, external auditory canals are patent EYES: Extraocular muscles are intact, pupil are equally round and reactive to light and accommodation MUSCULOSKELETAL: Well developed , well nourished, good range of motion ENDOCRINE: No thyromegaly was palpated LYMPHATICS: No cervical chain or axillary nodes were noted HEMATOPOIETIC: No bruising NECK: Supple, no JVD, no thyromegaly was noted LUNGS: Clear to auscultation in all lung khan without rhonchi or wheezing HEART: RRR, S!, S2 present. Peripheral pulses intact, no obvious murmurs noted ABDOMEN: Soft, nontender. Positive bowel sounds, no organomegaly, normal bowel sounds EXTREMITIES: Without clubbing, cyanosis, or edema. Pedal pulses intact. Negative Homans sign NEUROLOGIC: Normal speech and tone. A&O x 3, moves all extremities, no obvious focal deficits PSYCHIATRIC: Normal affect, normal mood. Stable SKIN: No ulcerations or rashes, good skin turgor, no jaundice VASCULAR: Good capillary refill, neurovascular bundle appears to be intact Labs: Labs: Laboratory Tests Test 03/01/21 16:00 White Blood Count 7.0 x10^3/uL (4.0-11.0) Red Blood Count 3.25 x10^6/uL (4.30-5.70) Hemoglobin 9.0 g/dL (13.0-17.5) Hematocrit 28.3 % (39.0-53.0) Mean Corpuscular Volume 87 fL (79-100) Mean Corpuscular Hemoglobin 28 pg (25-35) Mean Corpuscular Hemoglobin Concent 32 g/dL (31-37) Red Cell Distribution Width 14.8 % (11.5-14.5) Platelet Count 174 x10^3/uL (140-400) Neutrophils (%) (Auto) 73 % (31-73) Lymphocytes (%) (Auto) 13 % (24-48) Monocytes (%) (Auto) 12 % (0-9) Eosinophils (%) (Auto) 2 % (0-3) Basophils (%) (Auto) 1 % (0-3) Neutrophils # (Auto) 5.1 x10^3/uL (1.8-7.7) Lymphocytes # (Auto) 0.9 x10^3/uL (1.0-4.8) Monocytes # (Auto) 0.8 x10^3/uL (0.0-1.1) Eosinophils # (Auto) 0.2 x10^3/uL (0.0-0.7) Basophils # (Auto) 0.1 x10^3/uL (0.0-0.2) Sodium Level 139 mmol/L (136-145) Potassium Level 7.2 mmol/L (3.5-5.1) Chloride Level 108 mmol/L (98-107) Carbon Dioxide Level 17 mmol/L (21-32) Anion Gap 14 (6-14) Blood Urea Nitrogen 69 mg/dL (8-26) Creatinine 14.8 mg/dL (0.7-1.3) Estimated GFR (Cockcroft-Gault) 4.0 BUN/Creatinine Ratio 5 (6-20) Glucose Level 230 mg/dL (70-99) Lactic Acid Level 0.8 mmol/L (0.4-2.0) Calcium Level 8.5 mg/dL (8.5-10.1) Magnesium Level 2.2 mg/dL (1.8-2.4) Total Bilirubin 0.2 mg/dL (0.2-1.0) Aspartate Amino Transf (AST/SGOT) 10 U/L (15-37) Alanine Aminotransferase (ALT/SGPT) 11 U/L (16-63) Alkaline Phosphatase 85 U/L (46-116) Troponin I Quantitative < 0.017 ng/mL (0.000-0.055) Total Protein 7.4 g/dL (6.4-8.2) Albumin 2.9 g/dL (3.4-5.0) Albumin/Globulin Ratio 0.6 (1.0-1.7) Procalcitonin 0.56 ng/mL (0.00-0.10) Laboratory Tests Test 03/01/21 16:00 White Blood Count 7.0 x10^3/uL (4.0-11.0) Red Blood Count 3.25 x10^6/uL (4.30-5.70) Hemoglobin 9.0 g/dL (13.0-17.5) Hematocrit 28.3 % (39.0-53.0) Mean Corpuscular Volume 87 fL (79-100) Mean Corpuscular Hemoglobin 28 pg (25-35) Mean Corpuscular Hemoglobin Concent 32 g/dL (31-37) Red Cell Distribution Width 14.8 % (11.5-14.5) Platelet Count 174 x10^3/uL (140-400) Neutrophils (%) (Auto) 73 % (31-73) Lymphocytes (%) (Auto) 13 % (24-48) Monocytes (%) (Auto) 12 % (0-9) Eosinophils (%) (Auto) 2 % (0-3) Basophils (%) (Auto) 1 % (0-3) Neutrophils # (Auto) 5.1 x10^3/uL (1.8-7.7) Lymphocytes # (Auto) 0.9 x10^3/uL (1.0-4.8) Monocytes # (Auto) 0.8 x10^3/uL (0.0-1.1) Eosinophils # (Auto) 0.2 x10^3/uL (0.0-0.7) Basophils # (Auto) 0.1 x10^3/uL (0.0-0.2) Sodium Level 139 mmol/L (136-145) Potassium Level 7.2 mmol/L (3.5-5.1) Chloride Level 108 mmol/L (98-107) Carbon Dioxide Level 17 mmol/L (21-32) Anion Gap 14 (6-14) Blood Urea Nitrogen 69 mg/dL (8-26) Creatinine 14.8 mg/dL (0.7-1.3) Estimated GFR (Cockcroft-Gault) 4.0 BUN/Creatinine Ratio 5 (6-20) Glucose Level 230 mg/dL (70-99) Lactic Acid Level 0.8 mmol/L (0.4-2.0) Calcium Level 8.5 mg/dL (8.5-10.1) Magnesium Level 2.2 mg/dL (1.8-2.4) Total Bilirubin 0.2 mg/dL (0.2-1.0) Aspartate Amino Transf (AST/SGOT) 10 U/L (15-37) Alanine Aminotransferase (ALT/SGPT) 11 U/L (16-63) Alkaline Phosphatase 85 U/L (46-116) Troponin I Quantitative < 0.017 ng/mL (0.000-0.055) Total Protein 7.4 g/dL (6.4-8.2) Albumin 2.9 g/dL (3.4-5.0) Albumin/Globulin Ratio 0.6 (1.0-1.7) Procalcitonin 0.56 ng/mL (0.00-0.10) Images: Images PROCEDURE: FOOT RIGHT 3V IMPRESSION: The patient's first toe no displaced dorsally. No definite osseous destructive changes are seen to confirm acute osteomyelitis, though sensitivity for osteomyelitis is limited on radiographs. Status post amputation of the second and third toes at the bases of the proximal phalanges. Prominent vascular calci fications are noted. Bones are diffusely osteopenic which limits evaluation. Suboptimal positioning further limits evaluation. There is soft tissue swelling of the toes. No displaced acute fracture or dislocation. Negative DVT ultrasound of the right lower extremity Assessment/Plan Assessment/Plan Acute severe hyperkalemia Anemia of chronic kidney disease Acute right toe infection, concerning for arterial ulceration Acute electrolyte derangementhyperchloremia, hyperkalemia due to missed hemodialysis Metabolic acidosis Hyperglycemiauncontrolled History of diabetes mellitus type 2 Severe protein malnutrition History of peripheral vascular disease with amputation of the right lower extremity digits Admit to medicine for further management Nephrology consult Will dialyze today Vascular surgery consultkeep n.p.o. tonight for possible surgery tomorrow Heparin for DVT prophylaxis Protonix GI prophylaxis N.p.o. Full code Discussed with RN and SW Disposition inpatient management as above Surrogate decision maker is Erika Bee Smoking cessation: Total time spent was 12 minutes in face to face counseling. Patient has agreed to consider nicotine patches/gum or to start on Varnicline when discharged In addition to my E/M visit, advance care planning done with A total time of 20 minutes was spent from [] to [] face to face in discussion with the patient and family regarding their goals of care A total of 6 5 minutes of critical care time was spent in reviewing chart, labs, and images. Discussed with RN and SW. Justifications for Admission Other Justification HYPERKALEMIA, MISSED DIALYSIS LORI EISENBERG MD Mar 01, 2021 19:56
[2021-03-01] MEDS ORDERED: MORPHINE SULFATE 2 MG/ML VIAL. IV PRN (20:00)
[2021-03-01] MEDS ORDERED: DOCUSATE SODIUM 100 MG CAPSULE. PO PRN (20:00)
[2021-03-01] MEDS ORDERED: DEXTROSE 50% 25 GM / 50ML DISP.SYRIN. IV PRN (20:00)
[2021-03-01] MEDS ORDERED: MORPHINE SULFATE 2 MG/ML VIAL. IVP PRN (20:00)
[2021-03-01] MEDS ORDERED: SENNOSIDES 8.6 MG TABLET PO PRN (20:00)
[2021-03-01] MEDS ORDERED: ONDANSETRON PF 4 MG/2 ML VIAL. IVP PRN (20:00)
[2021-03-01] MEDS ORDERED: diphenhydrAMINE 50 MG/ML VIAL IV PRN ×2 (20:30)
[2021-03-01] MEDS ORDERED: DIALYSIS PATIENT. MC PRN (20:30)
[2021-03-01] MEDS ORDERED: IV NORMAL SALINE 1000ML BAG 1,000 ML IV PRN ×2 (20:30)
[2021-03-01] MEDS ORDERED: LIDOCAINE 1% PF 2 ML VIAL. INJ PRN (20:30)
[2021-03-01] MEDS ORDERED: ALBUMIN HUMAN 25% 200 ML IV PRN (20:30)
[2021-03-01 23:00] VITALS: BP 125/73
[2021-03-02] MEDS: HEPARIN for SUB-Q USE 5,000 UNIT/ML VIAL. SQ SCH ×3 (00:35→21:00)
[2021-03-02 03:00] VITALS: BP 140/69
[2021-03-02] MEDS: MORPHINE SULFATE 4 MG/ML VIAL. IV PRN ×2 (03:04→05:57)
[2021-03-02 04:29] LABS: BASO % 1 % (0-3); EOS # 0.2 x10^3/uL (0.0-0.7); EOS % 3 % (0-3); HEMATOCRIT 26.2 % (39.0-53.0); HEMOGLOBIN 8.6 g/dL (13.0-17.5); LYMPH # 0.7 x10^3/uL (1.0-4.8); LYMPH % 14 % (24-48); MEAN CORPUSCULAR HEMOGLOBIN 28 pg (25-35); MEAN CORPUSCULAR HGB CONC 33 g/dL (31-37); MEAN CORPUSCULAR VOLUME 85 fL (79-100); MONO # 0.6 x10^3/uL (0.0-1.1); MONO % 12 % (0-9); NEUT # 3.5 x10^3/uL (1.8-7.7); NEUT % 70 % (31-73); PLATELET COUNT 164 x10^3/uL (140-400); RED BLOOD COUNT 3.08 x10^6/uL (4.30-5.70); RED CELL DISTRIBUTION WIDTH 14.5 % (11.5-14.5)
[2021-03-02 04:41] LABS: ALBUMIN 2.5 g/dL (3.4-5.0); ALBUMIN/GLOBULIN RATIO 0.6 (1.0-1.7); CALCIUM 8.4 mg/dL (8.5-10.1); CREATININE 9.5 mg/dL (0.7-1.3); GFR 6.8; POTASSIUM 5.1 mmol/L (3.5-5.1); TOTAL BILIRUBIN 0.2 mg/dL (0.2-1.0); TOTAL PROTEIN 6.7 g/dL (6.4-8.2)
--- NOTE | 2021-03-02 06:40 | NUR ---
Noted scabbed area to left torres. Not warm to touch. 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
[2021-03-02 07:00] VITALS: BP 130/76
--- NOTE | 2021-03-02 08:07 | PDOC ---
Provider Note Date of Service: DATE: 03/02/21 TIME: 08:04 Provider Note Vascular Surgery Consult dictated Right 1st toe gangrene with necrotic wound at nail bed base. Right 2nd and 3rd toe amputation wounds are healing with a small open wound. Recommend right 1st toe partial amputation which will be scheduled on wednesday. IV antibiotics per ID. Justifications for Admission Other Justification HYPERKALEMIA, MISSED DIALYSIS WES ZELAYA MD Mar 02, 2021 08:06
[2021-03-02] MEDS: oxyCODONE/APAP 5/325 1 TAB TABLET PO PRN ×2 (09:59→21:42)
[2021-03-02 10:24] LABS: MAGNESIUM 2.1 mg/dL (1.8-2.4); PHOSPHORUS 5.3 mg/dL (2.6-4.7)
--- NOTE | 2021-03-02 10:54 | PDOC ---
Infectious Disease Note Vital Signs: Vital Signs Vital Signs Date Time Temp Pulse Resp B/P (MAP) Pulse Ox O2 Delivery O2 Flow Rate FiO2 03/02/21 09:59 19 98 Room Air 03/02/21 07:00 99.9 88 130/76 (94) 99.9 Medications: Inpatient Meds: Medications reviewed. Labs: Lab Laboratory Tests Test 03/01/21 16:00 03/01/21 20:50 03/01/21 21:15 03/01/21 23:38 White Blood Count 7.0 x10^3/uL (4.0-11.0) Red Blood Count 3.25 x10^6/uL (4.30-5.70) Hemoglobin 9.0 g/dL (13.0-17.5) Hematocrit 28.3 % (39.0-53.0) Mean Corpuscular Volume 87 fL (79-100) Mean Corpuscular Hemoglobin 28 pg (25-35) Mean Corpuscular Hemoglobin Concent 32 g/dL (31-37) Red Cell Distribution Width 14.8 % (11.5-14.5) Platelet Count 174 x10^3/uL (140-400) Neutrophils (%) (Auto) 73 % (31-73) Lymphocytes (%) (Auto) 13 % (24-48) Monocytes (%) (Auto) 12 % (0-9) Eosinophils (%) (Auto) 2 % (0-3) Basophils (%) (Auto) 1 % (0-3) Neutrophils # (Auto) 5.1 x10^3/uL (1.8-7.7) Lymphocytes # (Auto) 0.9 x10^3/uL (1.0-4.8) Monocytes # (Auto) 0.8 x10^3/uL (0.0-1.1) Eosinophils # (Auto) 0.2 x10^3/uL (0.0-0.7) Basophils # (Auto) 0.1 x10^3/uL (0.0-0.2) Sodium Level 139 mmol/L (136-145) Potassium Level 7.2 mmol/L (3.5-5.1) Chloride Level 108 mmol/L (98-107) Carbon Dioxide Level 17 mmol/L (21-32) Anion Gap 14 (6-14) Blood Urea Nitrogen 69 mg/dL (8-26) Creatinine 14.8 mg/dL (0.7-1.3) Estimated GFR (Cockcroft-Gault) 4.0 BUN/Creatinine Ratio 5 (6-20) Glucose Level 230 mg/dL (70-99) Lactic Acid Level 0.8 mmol/L (0.4-2.0) Calcium Level 8.5 mg/dL (8.5-10.1) Magnesium Level 2.2 mg/dL (1.8-2.4) Total Bilirubin 0.2 mg/dL (0.2-1.0) Aspartate Amino Transf (AST/SGOT) 10 U/L (15-37) Alanine Aminotransferase (ALT/SGPT) 11 U/L (16-63) Alkaline Phosphatase 85 U/L (46-116) Troponin I Quantitative < 0.017 ng/mL (0.000-0.055) < 0.017 ng/mL (0.000-0.055) Total Protein 7.4 g/dL (6.4-8.2) Albumin 2.9 g/dL (3.4-5.0) Albumin/Globulin Ratio 0.6 (1.0-1.7) Procalcitonin 0.56 ng/mL (0.00-0.10) Hepatitis B Surface Antigen Nonreactive (Nonreactive) Hepatitis B Surface Antibody Nonreactive Glucose (Fingerstick) 203 mg/dL (70-99) Test 03/02/21 03:30 White Blood Count 5.0 x10^3/uL (4.0-11.0) Red Blood Count 3.08 x10^6/uL (4.30-5.70) Hemoglobin 8.6 g/dL (13.0-17.5) Hematocrit 26.2 % (39.0-53.0) Mean Corpuscular Volume 85 fL (79-100) Mean Corpuscular Hemoglobin 28 pg (25-35) Mean Corpuscular Hemoglobin Concent 33 g/dL (31-37) Red Cell Distribution Width 14.5 % (11.5-14.5) Platelet Count 164 x10^3/uL (140-400) Neutrophils (%) (Auto) 70 % (31-73) Lymphocytes (%) (Auto) 14 % (24-48) Monocytes (%) (Auto) 12 % (0-9) Eosinophils (%) (Auto) 3 % (0-3) Basophils (%) (Auto) 1 % (0-3) Neutrophils # (Auto) 3.5 x10^3/uL (1.8-7.7) Lymphocytes # (Auto) 0.7 x10^3/uL (1.0-4.8) Monocytes # (Auto) 0.6 x10^3/uL (0.0-1.1) Eosinophils # (Auto) 0.2 x10^3/uL (0.0-0.7) Basophils # (Auto) 0.0 x10^3/uL (0.0-0.2) Sodium Level 142 mmol/L (136-145) Potassium Level 5.1 mmol/L (3.5-5.1) Chloride Level 105 mmol/L (98-107) Carbon Dioxide Level 26 mmol/L (21-32) Anion Gap 11 (6-14) Blood Urea Nitrogen 38 mg/dL (8-26) Creatinine 9.5 mg/dL (0.7-1.3) Estimated GFR (Cockcroft-Gault) 6.8 BUN/Creatinine Ratio 4 (6-20) Glucose Level 297 mg/dL (70-99) Calcium Level 8.4 mg/dL (8.5-10.1) Phosphorus Level 5.3 mg/dL (2.6-4.7) Magnesium Level 2.1 mg/dL (1.8-2.4) Total Bilirubin 0.2 mg/dL (0.2-1.0) Aspartate Amino Transf (AST/SGOT) 10 U/L (15-37) Alanine Aminotransferase (ALT/SGPT) 10 U/L (16-63) Alkaline Phosphatase 73 U/L (46-116) Total Protein 6.7 g/dL (6.4-8.2) Albumin 2.5 g/dL (3.4-5.0) Albumin/Globulin Ratio 0.6 (1.0-1.7) Objective: Assessment: Patient seen and examined ID consult dictated Impression 1. Right great toe infection 2. Diabetes with neuropathy. 3. Chronic kidney disease, on hemodialysis. 4. Atrial fibrillation, on warfarin. 5. History of right second and third toe amputation with superficial ulceration Plan: Plan of Care ID consult dictated Restart IV Vanco and Zosyn Start micafungin Awaiting surgery tomorrow Local wound care as directed Thank you GIL ANDRADE MD Mar 02, 2021 10:54
[2021-03-02 11:00] VITALS: BP 117/72
[2021-03-02] MEDS ORDERED: PIP/TAZO PER PHARMACY MC PRN (11:00)
--- NOTE | 2021-03-02 11:18 | NUR ---
Pharmacy Vancomycin Dosing Note S:Consulted to monitor and dose vancomycin started 03/01/21. O:UMER VANCE is a 65 year old M with Cellulitis . Height: 6 feet, 3 inches Weight: 87.8 kg [place] Body Weight: 84.50 Adjusted Body Weight: 85.82 Dosing Weight: Actual Other Antibiotics: Zosyn LABS: Last BUN: 38 Last Creatinine: 9.5 Creatinine Clearance: Dialysis MWF mL/min Last WBC: 5.0 Last Procalcitonin: 0.65 Tmax (past 24 hours): 99.9 Microbiology: I/O: 100/ Drug Levels: Last level: on at Last dose given 03/08/21 at 1700 Vancomycin Dosing: Loading Dose: 2000 mg x1 Dosing Weight: Actual Target Trough: 10-20 A: Based on dialysis status and weight: P: 1. Give Vancomycin 2000mg, followed by Vancomycin 500 mg IV MWF p Dialysis. Extra dose given due to dialysis on Wednesday. 2. Follow up Random level on 03/03/21 at 0600 3. Pharmacy will continue to monitor, follow and adjust therapy as needed. Polo Alarcon [facility], 03/02/21 [id number]
[2021-03-02] MEDS: INSULIN LISPRO 300 UNITS/3 ML VIAL. SQ SCH ×3 (12:00→17:00)
[2021-03-02] MEDS: PIPERACILLIN/TAZOBACTAM 2.25 GM in IV NORMAL SALINE 50ML 50 ML IV SCH ×2 (12:15→21:42)
[2021-03-02] MEDS ORDERED: INSULIN LISPRO 300 UNITS/3 ML VIAL. SQ ONE (13:00)
[2021-03-02] MEDS: ACETAMINOPHEN 325 MG TABLET. PO PRN ×2 (13:06→19:45)
[2021-03-02] MEDS: MICAFUNGIN 100 MG in IV DEXTROSE 5% 100ML 100 ML IV SCH (13:07)
--- NOTE | 2021-03-02 13:13 | PDOC ---
[employer] PROGRESS NOTE Date of Service DOS: DATE: 03/02/21 TIME: 13:12 Chief Complaint Chief Complaint Acute severe hyperkalemia Anemia of chronic kidney disease Acute right toe infection, concerning for arterial ulceration Acute electrolyte derangementhyperchloremia, hyperkalemia due to missed hemodi alysis Metabolic acidosis Hyperglycemiauncontrolled History of diabetes mellitus type 2 Severe protein malnutrition History of peripheral vascular disease with amputation of the right lower extremity digits History of Present Illness History of Present Illness 03/02/2021 Patient seen and examined He is resting with no apparent distress His right first toe is quite diseased with a loose toenail with some blood and some dry gangrene on the tip of the toe Discussed with RN Chart reviewed He is apparently going to surgery in the morning Vitals/I&O Vitals/I&O: Vital Signs Date Time Temp Pulse Resp B/P (MAP) Pulse Ox O2 Delivery O2 Flow Rate FiO2 03/02/21 11:00 100.6 89 17 117/72 (87) 97 Room Air 100.6 I & O 03/01/21 03/01/21 03/02/21 15:00 23:00 07:00 Intake Total 100 ml Output Total 0 ml Balance 100 ml 0 ml Physical Exam General: No acute distress Heart: Regular rate Lungs: Clear Abdomen: Normal bowel sounds Extremities: Other (Please see above but basically the first toe is quite diseased with gangrene and some bleeding and a loose toenail) Skin: Other (Very dry skin on the lower extremity) Labs Labs: Laboratory Tests Test 03/01/21 16:00 03/01/21 20:50 03/01/21 21:15 03/01/21 23:38 White Blood Count 7.0 x10^3/uL (4.0-11.0) Red Blood Count 3.25 x10^6/uL (4.30-5.70) Hemoglobin 9.0 g/dL (13.0-17.5) Hematocrit 28.3 % (39.0-53.0) Mean Corpuscular Volume 87 fL (79-100) Mean Corpuscular Hemoglobin 28 pg (25-35) Mean Corpuscular Hemoglobin Concent 32 g/dL (31-37) Red Cell Distribution Width 14.8 % (11.5-14.5) Platelet Count 174 x10^3/uL (140-400) Neutrophils (%) (Auto) 73 % (31-73) Lymphocytes (%) (Auto) 13 % (24-48) Monocytes (%) (Auto) 12 % (0-9) Eosinophils (%) (Auto) 2 % (0-3) Basophils (%) (Auto) 1 % (0-3) Neutrophils # (Auto) 5.1 x10^3/uL (1.8-7.7) Lymphocytes # (Auto) 0.9 x10^3/uL (1.0-4.8) Monocytes # (Auto) 0.8 x10^3/uL (0.0-1.1) Eosinophils # (Auto) 0.2 x10^3/uL (0.0-0.7) Basophils # (Auto) 0.1 x10^3/uL (0.0-0.2) Sodium Level 139 mmol/L (136-145) Potassium Level 7.2 mmol/L (3.5-5.1) Chloride Level 108 mmol/L (98-107) Carbon Dioxide Level 17 mmol/L (21-32) Anion Gap 14 (6-14) Blood Urea Nitrogen 69 mg/dL (8-26) Creatinine 14.8 mg/dL (0.7-1.3) Estimated GFR (Cockcroft-Gault) 4.0 BUN/Creatinine Ratio 5 (6-20) Glucose Level 230 mg/dL (70-99) Lactic Acid Level 0.8 mmol/L (0.4-2.0) Calcium Level 8.5 mg/dL (8.5-10.1) Magnesium Level 2.2 mg/dL (1.8-2.4) Total Bilirubin 0.2 mg/dL (0.2-1.0) Aspartate Amino Transf (AST/SGOT) 10 U/L (15-37) Alanine Aminotransferase (ALT/SGPT) 11 U/L (16-63) Alkaline Phosphatase 85 U/L (46-116) Troponin I Quantitative < 0.017 ng/mL (0.000-0.055) < 0.017 ng/mL (0.000-0.055) Total Protein 7.4 g/dL (6.4-8.2) Albumin 2.9 g/dL (3.4-5.0) Albumin/Globulin Ratio 0.6 (1.0-1.7) Procalcitonin 0.56 ng/mL (0.00-0.10) Hepatitis B Surface Antigen Nonreactive (Nonreactive) Hepatitis B Surface Antibody Nonreactive Glucose (Fingerstick) 203 mg/dL (70-99) Test 03/02/21 03:30 03/02/21 11:35 White Blood Count 5.0 x10^3/uL (4.0-11.0) Red Blood Count 3.08 x10^6/uL (4.30-5.70) Hemoglobin 8.6 g/dL (13.0-17.5) Hematocrit 26.2 % (39.0-53.0) Mean Corpuscular Volume 85 fL (79-100) Mean Corpuscular Hemoglobin 28 pg (25-35) Mean Corpuscular Hemoglobin Concent 33 g/dL (31-37) Red Cell Distribution Width 14.5 % (11.5-14.5) Platelet Count 164 x10^3/uL (140-400) Neutrophils (%) (Auto) 70 % (31-73) Lymphocytes (%) (Auto) 14 % (24-48) Monocytes (%) (Auto) 12 % (0-9) Eosinophils (%) (Auto) 3 % (0-3) Basophils (%) (Auto) 1 % (0-3) Neutrophils # (Auto) 3.5 x10^3/uL (1.8-7.7) Lymphocytes # (Auto) 0.7 x10^3/uL (1.0-4.8) Monocytes # (Auto) 0.6 x10^3/uL (0.0-1.1) Eosinophils # (Auto) 0.2 x10^3/uL (0.0-0.7) Basophils # (Auto) 0.0 x10^3/uL (0.0-0.2) Sodium Level 142 mmol/L (136-145) Potassium Level 5.1 mmol/L (3.5-5.1) Chloride Level 105 mmol/L (98-107) Carbon Dioxide Level 26 mmol/L (21-32) Anion Gap 11 (6-14) Blood Urea Nitrogen 38 mg/dL (8-26) Creatinine 9.5 mg/dL (0.7-1.3) Estimated GFR (Cockcroft-Gault) 6.8 BUN/Creatinine Ratio 4 (6-20) Glucose Level 297 mg/dL (70-99) Calcium Level 8.4 mg/dL (8.5-10.1) Phosphorus Level 5.3 mg/dL (2.6-4.7) Magnesium Level 2.1 mg/dL (1.8-2.4) Total Bilirubin 0.2 mg/dL (0.2-1.0) Aspartate Amino Transf (AST/SGOT) 10 U/L (15-37) Alanine Aminotransferase (ALT/SGPT) 10 U/L (16-63) Alkaline Phosphatase 73 U/L (46-116) Total Protein 6.7 g/dL (6.4-8.2) Albumin 2.5 g/dL (3.4-5.0) Albumin/Globulin Ratio 0.6 (1.0-1.7) Glucose (Fingerstick) 359 mg/dL (70-99) Assessment and Plan Assessmemt and Plan Problems Medical Problems: (1) Toe infection Status: Acute Acute severe hyperkalemia Anemia of chronic kidney disease Acute right toe infection, concerning for arterial ulceration Acute electrolyte derangementhyperchloremia, hyperkalemia due to missed hemodialysis Metabolic acidosis Hyperglycemiauncontrolled History of diabetes mellitus type 2 Severe protein malnutrition History of peripheral vascular disease with amputation of the right lower extremity digits Plan IV antibiotics Wound care He is going to surgery for amputation in the morning Appreciate subspecialist input Trend labs Home meds DVT prophylaxis As needed pain meds GI prophylaxis Comment Review of Relevant I have reviewed the following items keron (where applicable) has been applied. Medications: Current Medications Medications (Trade) Dose Ordered Sig/Raymon Route PRN Reason Start Time Stop Time Status Last Admin Dose Admin Piperacillin Sod/ Tazobactam Sod 4.5 gm/Sodium Chloride 100 ml @ 200 mls/hr 1X ONCE IV 03/01/21 15:30 03/01/21 15:59 DC 03/01/21 16:25 Vancomycin HCl (Vanco Per Pharmacy) 1 each 1X ONCE MC 03/01/21 15:15 03/01/21 15:16 DC 03/01/21 15:15 Morphine Sulfate (Morphine Sulfate) 4 mg PRN Q15MIN PRN IV/SQ PAIN GREATER THAN 3/10 03/01/21 15:15 03/01/21 23:00 DC 03/01/21 17:57 Vancomycin HCl 2 gm/Sodium Chloride 500 ml @ 250 mls/hr 1X ONCE IV 03/01/21 16:00 03/01/21 17:59 DC 03/01/21 17:00 Morphine Sulfate (Morphine Sulfate) 4 mg PRN Q2HR PRN IV PAIN 03/01/21 18:30 03/02/21 12:34 DC 03/02/21 05:57 Insulin Human Lispro (HumaLOG) 0-7 UNITS TIDWMEALS SQ 03/02/21 08:00 03/02/21 12:32 Acetaminophen (Tylenol) 650 mg PRN Q4HRS PRN PO TEMP OVER 100.4F OR MILD PAIN 03/01/21 20:00 03/02/21 13:06 Heparin Sodium (Porcine) (Heparin Sodium) 5,000 unit Q12HR SQ 03/01/21 21:00 03/02/21 10:11 Oxycodone/ Acetaminophen (Percocet 5/325) 1 tab PRN Q4HRS PRN PO MILD PAIN, 1ST CHOICE 03/01/21 20:00 03/02/21 09:59 Micafungin Sodium 100 mg/Dextrose 100 ml @ 100 mls/hr Q24H IV 03/02/21 12:00 03/02/21 13:07 Piperacillin Sod/ Tazobactam Sod 2.25 gm/Sodium Chloride 50 ml @ 100 mls/hr Q8HRS IV 03/02/21 12:00 03/02/21 12:15 Justifications for Admission Other Justification HYPERKALEMIA, MISSED DIALYSIS JORGE MAN III DO Mar 02, 2021 13:13
[2021-03-02 15:00] VITALS: BP 144/66
[2021-03-02] MEDS ORDERED: VANCOMYCIN 500 MG in IV NORMAL SALINE 100ML 100 ML IV ONE (16:00)
--- NOTE | 2021-03-02 16:11 | CONS ---
DATE OF CONSULTATION: 03/02/2021 CHIEF COMPLAINT: Right first toe infection. HISTORY OF PRESENT ILLNESS: The patient is a 65-year-old male with end-stage renal disease on chronic hemodialysis, who has recently undergone a right second and third toe amputations along with debridement of his right first and fourth toes by Dr. Mancera on 02/05/2021. He presents to the hospital after missing dialysis for approximately a week and having an injury to his right first toe. He has avulsed the nail bed and has infection at the nail bed base. There also continues to be a large wound on the tip of his right first toe with dry gangrene. He reports some pain in his foot, especially at the site of the first toe. The second and third toes have nearly healed. There is a small open wound, but no signs of infection. He has been started on antibiotics. REVIEW OF SYSTEMS: A 10-point review of systems was performed, which is otherwise negative besides as mentioned in the history of present illness. PAST MEDICAL HISTORY: Includes diabetes mellitus, end-stage renal disease on chronic hemodialysis, peripheral arterial disease, colon cancer, history of deep venous thrombosis. PAST SURGICAL HISTORY: Includes colon resection, right arm dialysis graft in the upper arm, right second and third toe amputations along with debridement of his first and fourth toes. ALLERGIES: INCLUDE PREDNISONE. MEDICATIONS: Please see his full MAR. SOCIAL HISTORY: The patient smokes on a daily basis, he uses occasional marijuana and alcohol. FAMILY HISTORY: Significant for coronary artery disease. PHYSICAL EXAMINATION: GENERAL: The patient is awake and alert, currently in no apparent distress. VITAL SIGNS: He is afebrile. His vital signs are stable. NECK: Supple. ABDOMEN: Soft, nondistended and nontender. EXTREMITIES: His bilateral upper extremities are warm. His right arm has an upper arm dialysis graft with a good pulse and no swelling of the arm, there is no pain in his hand. Right lower extremity is warm, there is no significant swelling in his right leg, the right second and third toe amputation incisions are almost completely healed. There is a small open wound in the midsection, but no drainage or signs of infection. The right first toe has a large wound at the tip of the toe with black dry gangrene, the nail bed has been avulsed and there is necrotic tissue at the nail base. The mid and proximal toe is normal with no extending erythema. There are no other areas of tissue breakdown in his right foot. I do not palpate pedal pulses, but I did review the arterial duplex scan, which was done recently, which shows fairly adequate circulation, likely a mild tibial disease. Left lower extremity is warm, no tissue breakdown in the foot and no swelling. NEUROLOGIC: He is awake and alert, oriented x 3, moving all extremities with normal strength, no gross neurologic deficits. ASSESSMENT AND PLAN: The patient is a 65-year-old male with a history of a right second and third toe amputation on 02/05/2021 along with the first and fourth toe debridement by Dr. Mancera. The second and third toe amputation wounds are healing well. There is still a very small open wound, but no signs of infection. He has injured his right first toe and he has avulsed the nail and has a necrotic wound at the nail bed along with a chronic large wound at the tip of his toe with black dry gangrene. X-ray was performed, which is negative for osteomyelitis. With the gangrenous wound which is not yet healed at the tip of the toe and now a necrotic wound from the nail bed avulsion, I recommend partial amputation of his right first toe. I feel that he has adequate circulation since the second and third toes have nearly healed and there are no critical areas of disease seen on his duplex scan. He will be scheduled for a right partial first toe amputation tomorrow. MOE DAVIS: FLOR/ran TID: [id number]
[2021-03-02] MEDS ORDERED: diphenhydrAMINE 50 MG/ML VIAL IVP ONE (16:30)
--- NOTE | 2021-03-02 18:29 | NUR ---
Nurse's note: Patient's blood glucose was elevated at 359, additional 13 units (total 20 units) of insulin lispro given.
[2021-03-02 19:00] VITALS: BP 172/92
--- NOTE | 2021-03-02 21:57 | CONS ---
DATE OF CONSULTATION: 03/02/2021 REFERRING PHYSICIAN: Alyssa Garcia MD REASON FOR CONSULTATION: Right first toe gangrene with necrotic wound at the nailbed. Antibiotic management. HISTORY OF PRESENT ILLNESS: A 65-year-old male with history of end-stage renal disease, on dialysis, diabetes, who had undergone right second and third toe amputations on 01/29/2021, came in with complaints of right foot pain, which is chronic. The patient was evaluated by the home health nurse and they felt that his right great toe and nail were infected. The patient denied any history of trauma. Denies being on any antibiotics recently. Denies any fevers, chills, nausea, vomiting, diarrhea or abdominal pain. White count was normal, hemoglobin was 8.6, platelets of 164; creatinine was 9.5 with glucose of 297. The patient underwent x-ray of the right foot, which showed right first toe not displaced; no definite osseous destructive changes seen to confirm acute osteomyelitis, although sensory to osteomyelitis is limited on radiographs; status post amputations of the second and third toes at the base of the proximal phalanges; prominent vascular calcification; there is also soft tissue swelling of the toes; no displaced acute fracture or dislocation. The patient underwent ultrasound of the lower extremity, which did not show any evidence of DVT. Vascular Surgery was consulted. The patient is scheduled for surgery tomorrow morning. The patient had received a dose of vancomycin and Zosyn yesterday. Currently, he is not on any antibiotics. Today, he complains of pain at the first great toe site; otherwise, feels good. PAST MEDICAL HISTORY: Diabetes; history of DVT; end-stage renal disease; ulcerative colitis; colon cancer; status post colostomy taken down; peritoneal dialysis catheter taken down; history of gangrenous second and third toes, status post amputations; history of polysubstance abuse; osteoarthritis; hyperparathyroidism; anemia. PAST SURGICAL HISTORY: Cholecystectomy, colectomy, right second and third toe amputations on 01/29/2021. FAMILY HISTORY: COPD. SOCIAL HISTORY: The patient lives with his mother. He is a smoker, drinks alcohol on occasion, history of cocaine and crystal methamphetamine. ALLERGIES: PREDNISONE. CURRENT MEDICATIONS: No antibiotics. Status post one dose of Zosyn and vancomycin. REVIEW OF SYSTEMS: Negative except for above in HPI. PHYSICAL EXAMINATION: VITAL SIGNS: Temperature 99.9, pulse 88, respiratory rate 19, blood pressure 130/76, oxygen saturation 98% on room air. GENERAL: Alert, oriented x 3 male, lying in bed comfortably, in no acute distress. HEENT: Normocephalic, atraumatic. Conjunctivae are clear. Oropharynx is clear. NECK: Supple. LUNGS: Clear bilaterally. No accessory muscle use. HEART: S1, S2. No murmurs. ABDOMEN: Soft, nontender, nondistended. Bowel sounds present. EXTREMITIES: Trace edema, both lower extremities. Right second toe previous amputation site has superficial ulceration, no drainage. Right great toe swollen, erythematous necrotic base at the nail, mildly tender. DERMATOLOGIC: Warm, dry skin. No generalized rash. NEUROLOGIC: Alert, oriented x 3, grossly nonfocal. PSYCHIATRIC: Cooperative, calm. ACCESS: Right upper arm AV fistula clean. LABORATORY DATA: WBC 5.0, hemoglobin 8.6, hematocrit 26.2, platelets 164. Sodium 142, potassium 5.1, chloride 105, bicarbonate 26, BUN 38, creatinine 9.5. INR 2.0. IMAGIN. Right foot x-ray, as above. 2. Ultrasound of the right lower extremity, negative for DVT. IMPRESSION: 1. Infected right great toe. 2. Acute severe hyperkalemia. 3. Status post amputations of the right second and third toes, 01/29/2021. Superficial swab cultures were positive for Dorita parapsilosis and Staphylococcus epidermidis, was discharged on amoxicillin. 4. End-stage renal disease, on hemodialysis. Missed hemodialysis session. 5. History of diabetes mellitus. 6. History of peripheral vascular disease. 7. Atrial fibrillation, on Coumadin. RECOMMENDATIONS: 1. Restart vancomycin and Zosyn. 2. Start micafungin. 3. Vascular input noted. 4. Wound care as directed. 5. Monitor labs and temperature. 6. Follow up cultures. 7. Probiotics. Thank you for allowing me to participate in this patient's care. If you have any questions, do not hesitate to contact me. JUSTINA DAVIS: Kristy TID: [id number]
--- NOTE | 2021-03-02 22:32 | CONS ---
DATE OF CONSULTATION: 03/02/2021 REASON FOR CONSULTATION: End-stage renal disease. HISTORY OF PRESENT ILLNESS: This is a 65-year-old gentleman with history of diabetes mellitus, hypertension, end-stage renal disease. He is to be hemodialysis dependent on a Wednesday, Wednesday, Wednesday schedule. His last dialysis was one week prior to presentation. He is currently admitted with right foot pain. He presented with severe hyperkalemia, has undergone emergent dialysis. He will need ongoing management of dialysis and comorbidities associated with end-stage renal disease. PAST MEDICAL HISTORY: Diabetes mellitus, hypertension, end-stage renal disease, hemodialysis dependent on Wednesday, Wednesday and Wednesday, noncompliance with dialysis, anemia, chronic kidney disease, secondary hyperparathyroidism, renal disease, ulcerative colitis, colon cancer, colon resection with colostomy and subsequent takedown. ALLERGIES: PREDNISONE. MEDICATIONS: Reviewed per medication list. FAMILY HISTORY: Noncontributory. SOCIAL HISTORY: The patient resides independently. REVIEW OF SYSTEMS: No headache, sinus problem, nasal drainage, epistaxis, change in vision or hearing, no difficulty with swallowing. No fever, chills, cough, sputum production, hemoptysis. No chest pain or shortness of breath, no abdominal pain, no nausea, vomiting, diarrhea. No seizures. PHYSICAL EXAMINATION: GENERAL APPEARANCE: The patient is somewhat restless. HEENT: Clear. Bitemporal wasting. NECK: No acute JVD. No thyromegaly or masses. LUNGS: Decreased breath sounds at bases. CARDIAC: Without S3 or rub. ABDOMEN: Soft, nontender. EXTREMITIES: No edema. NEUROPSYCHIATRIC: Follows appropriately. LABORATORY DATA: On presentation, potassium 7.2, creatinine 14.8, GFR 4. Current potassium 5.1, creatinine 9.5, GFR 6.8. ASSESSMENT: 1. End-stage renal disease secondary to diabetic nephropathy. 2. Hyperkalemia due to noncompliance with dialysis. 3. Noncompliance with dialysis. 4. Foot pain. RECOMMENDATIONS: 1. Ongoing dialysis Wednesday, Wednesday and Wednesday. 2. Management of foot pain. 3. Epogen for anemia of chronic kidney disease. We will follow. SAVITA DR: Pierre TID: [id number]
[2021-03-02 22:42] VITALS: BP 138/64
[2021-03-03] VITALS (7 sets, daily range): BP systolic 117–155; BP diastolic 59–83
[2021-03-03] MEDS: PIPERACILLIN/TAZOBACTAM 2.25 GM in IV NORMAL SALINE 50ML 50 ML IV SCH ×3 (05:50→23:43)
[2021-03-03] MEDS: oxyCODONE/APAP 5/325 1 TAB TABLET PO PRN ×4 (05:51→20:28)
[2021-03-03] MEDS ORDERED: VANCOMYCIN RANDOM LEVEL. MC ONE (06:00)
[2021-03-03] MEDS ORDERED: fentaNYL PF VIAL 100 MCG/2 ML VIAL IVP PRN ×2 (07:00)
[2021-03-03] MEDS ORDERED: MORPHINE SULFATE 2 MG/ML VIAL. IVP PRN (07:00)
[2021-03-03] MEDS ORDERED: PROCHLORPERAZINE 10 MG/2 ML VIAL. IVP PRN (07:00)
[2021-03-03] MEDS ORDERED: HYDROmorphone 2 MG/ML VIAL IVP PRN (07:00)
[2021-03-03] MEDS ORDERED: IV RINGERS,LACTATED 1000ML 1,000 ML IV SCH (07:00)
[2021-03-03] MEDS ORDERED: PROPOFOL 10 MG/ML (20ML) VIAL. IV ONE (07:09)
[2021-03-03] MEDS ORDERED: LIDOCAINE 2% PF 5 ML VIAL. ONE (07:09)
[2021-03-03] MEDS ORDERED: IV NORMAL SALINE 1000ML BAG 1,000 ML IV ONE (07:45)
[2021-03-03] MEDS: INSULIN LISPRO 300 UNITS/3 ML VIAL. SQ SCH ×3 (08:00→17:00)
[2021-03-03] MEDS ORDERED: fentaNYL PF VIAL 100 MCG/2 ML VIAL ONE ×2 (08:07→09:48)
[2021-03-03] MEDS: VANCOMYCIN PER PHARMACY MC PRN (08:16)
--- NOTE | 2021-03-03 08:16 | NUR ---
Pharmacy Vancomycin Dosing Note S:Consulted to monitor and dose vancomycin started 03/01/21. O:UMER VANCE is a 65 year old M with Cellulitis. Height: 6 feet, 3 inches Weight: 87.8 kg Blaine Body Weight: 84.50 Adjusted Body Weight: 85.82 Dosing Weight: Actual Other Antibiotics: Zosyn LABS: Last BUN: 38 Last Creatinine: 9.5 Creatinine Clearance: Dialysis MWF Last WBC: 5.0 Last Procalcitonin: 0.65 Tmax (past 24 hours): 103.1 Microbiology: I/O: 50 / 100 Drug Levels: Last Random level: 20.9 on 03/03/21 at 0435 Last dose given 03/02/21 at 1637 Vancomycin Dosing: Dosing Weight: Actual Target Trough: 10-20 A: Based on: random level. P: 1. Continue Vancomycin 500 mg IV MWF p Dialysis 2. Follow up Random level on 03/03/21 at 0600 3. Pharmacy will continue to monitor, follow and adjust therapy as needed. ADELAIDA SPRING RPH, 03/03/21 [id number]
[2021-03-03] MEDS ORDERED: PHENYLEPHRINE in 0.9% NACL PF 1 MG/10 ML SYRINGE. IV ONE (08:27)
[2021-03-03] MEDS ORDERED: SEVOFLURANE 61 TO 120 MINUTES. IH ONE (08:27)
[2021-03-03] MEDS ORDERED: ONDANSETRON PF 4 MG/2 ML VIAL. ONE (08:38)
--- NOTE | 2021-03-03 08:50 | PDOC ---
BRIEF OPERATIVE NOTE Date: Mar 03, 2021 Pre-Op Diagnosis Right first toe gangrene Open wound second and third toe amputation site Post-Op Diagnosis same Procedure Performed Right first toe open amputation Right 2nd and 3rd toe amputation site with excisional debridement of skin, subcutaneous tissue and bone Surgeon Dr. Garcia Geospatial Information Technologist Lebron [place] Anesthesia Type: General Blood Loss 5cc Specimens Obtained cultures right 1st toe cultures right 2nd and 3rd toe amputation Findings purulent drainage 1st toe purulent drainage 2nd and 3rd toe amputation Complications none Operative Note see dictated op note for additional information LEBRON DOVER COMMUNICATIONS AGENT Mar 03, 2021 08:50
[2021-03-03] MEDS: HEPARIN for SUB-Q USE 5,000 UNIT/ML VIAL. SQ SCH ×2 (09:00→20:35)
--- NOTE | 2021-03-03 09:59 | OP ---
DATE OF SURGERY: 03/03/2021 SURGEON: Alyssa Garcia MD PUMP OPERATOR BYPRODUCTS: Karen Jo, nurse practitioner. PREOPERATIVE DIAGNOSES: 1. Right first toe gangrene. 2. Right previous second and third toe amputation with a small open wound expressing purulent drainage. POSTOPERATIVE DIAGNOSES: 1. Right first toe gangrene with underlying abscess. 2. Right second and third toe previous amputation with underlying abscess and necrotic tissue. OPERATIONS PERFORMED: 1. Right first toe open amputation. 2. Right second and third toe amputation site sharp excisional debridement, removing necrotic skin, subcutaneous tissue and metatarsal head bones from the second and third toes, measurements after debridement were approximately 5 cm in length x 3 cm in width x 3 cm in depth. ANESTHESIA USED: General anesthesia. ESTIMATED BLOOD LOSS: Approximately 10 mL. INDICATIONS: The patient is a 65-year-old male with end-stage renal disease, on chronic hemodialysis and diabetes mellitus, who recently underwent a right second and third toe amputation along with first toe tip debridement. The right first toe ____ toe has developed black gangrene and he has avulsed his nail with purulent drainage. I recommend a right first toe amputation. He also needs debridement of the second and third toe amputation sites where there is an open wound expressing purulent drainage. Informed consent was obtained including the risks of bleeding, infection, need for further surgical debridements or amputation in the future if this does not heal, need for long-term wound care with a wound VAC dressing and antibiotics. DETAILS OF THE OPERATION: The patient was brought in to the operating room and placed on the table in supine position. He received general anesthesia throughout the case by the anesthesiologist. His right foot and ankle were circumferentially prepped and draped by normal sterile fashion. I incised the right first toe in the proximal section through healthy skin in a fishmouth-type manner, went down through the subcutaneous tissue, dividing the tendons down to the bone and transected the bone and removed the toe with a bone cutter. The distal aspect of the toe we incised into the gangrene and there was copious amounts of purulent drainage underneath this, which was sent for culture. We explored the second and third toe amputation open wound. There was a large cavity under this small opening and purulent drainage was expressed. We opened the incision and cultured the underlying fluid. We removed the necrotic tissue throughout the wound bed. This tracked over to the area of the first toe, therefore we incorporated the first toe incision with a second and third toe incision to make it all one open wound since there was copious amounts of infection in the toe and debridement site. We removed necrotic metatarsal head bones from the second and third toes, getting back to good healthy bone and removed all the necrotic tissue throughout the wound bed, which was sharply excised through the subcutaneous tissue level. All tendons were removed. The bones were brought back from the first, second and third toes deeper in the wound, so there was good areas to granulate and heal. The underlying bone was healthy. There was pulsatile bleeding from arteries within the wound, which was controlled with electrocautery. He had very good circulation. We irrigated with copious amounts of antibiotic solution. Because of the good bleeding, we did not place the wound VAC dressing today. We packed with saline-soaked gauze, wrapped with an ABD pad, Kerlix and an Tommie bandage. He tolerated the surgery with no immediate complications. SPECIMENS: Two cultures were sent from the right foot. FLOR/ERIC DR: Alvin TID: [id number]
[2021-03-03] MEDS ORDERED: IV NORMAL SALINE 1000ML BAG 1,000 ML IV PRN ×2 (10:00)
[2021-03-03] MEDS ORDERED: ALBUMIN HUMAN 25% 200 ML IV PRN (10:00)
[2021-03-03] MEDS ORDERED: LIDOCAINE 1% PF 2 ML VIAL. INJ PRN (10:00)
[2021-03-03] MEDS ORDERED: DIALYSIS PATIENT. MC PRN ×2 (10:00)
[2021-03-03] MEDS ORDERED: diphenhydrAMINE 50 MG/ML VIAL IV PRN (10:00)
--- NOTE | 2021-03-03 10:08 | NUR ---
nish held this a.m. d/t surgery
--- NOTE | 2021-03-03 10:52 | PDOC ---
Infectious Disease Note Subjective Subjective pt is feeling ok ROS ROS no n/v/d/sob Vital Sign Vital Signs Vital Signs Date Time Temp Pulse Resp B/P (MAP) Pulse Ox O2 Delivery O2 Flow Rate FiO2 03/03/21 09:52 12 97 03/03/21 09:45 70 113/70 Room Air 03/03/21 09:00 10 03/03/21 08:45 98.5 98.5 Physical Exam PHYSICAL EXAM GENERAL: Alert, oriented x 3 male, lying in bed comfortably, in no acute distress. HEENT: Normocephalic, atraumatic. Conjunctivae are clear. Oropharynx is clear. NECK: Supple. LUNGS: Clear bilaterally. No accessory muscle use. HEART: S1, S2. No murmurs. ABDOMEN: Soft, nontender, nondistended. Bowel sounds present. EXTREMITIES: post surgical dressing not opened DERMATOLOGIC: Warm, dry skin. No generalized rash. NEUROLOGIC: Alert, oriented x 3, grossly nonfocal. PSYCHIATRIC: Cooperative, calm. ACCESS: Right upper arm AV fistula clean. Labs Lab Laboratory Tests Test 03/02/21 11:35 03/02/21 16:40 03/02/21 17:33 03/02/21 19:12 Glucose (Fingerstick) 359 mg/dL (70-99) 99 mg/dL (70-99) 128 mg/dL (70-99) SARS-CoV-2 Antigen (Rapid) Negative (NEGATIVE) Test 03/03/21 04:35 03/03/21 06:31 Random Vancomycin Level 20.9 mcg/mL Glucose (Fingerstick) 127 mg/dL (70-99) Micro Microbiology 03/01/21 Blood Culture - Preliminary, Resulted NO GROWTH AFTER 1 DAY Objective Assessment IMPRESSION: 1. Infected right great toe.s/p amputation 2. Acute severe hyperkalemia. 3. Status post amputations of the right second and third toes, 01/29/2021. Superficial swab cultures were positive for Dorita parapsilosis and Staphylococcus epidermidis, was discharged on amoxicillin. 4. End-stage renal disease, on hemodialysis. Missed hemodialysis session. 5. History of diabetes mellitus. 6. History of peripheral vascular disease. 7. Atrial fibrillation, on Coumadin. Plan Plan of Care IV Vanco and Zosyn micafungin Local wound care as directed d/w LIZZETH Germain MD Mar 03, 2021 10:52
--- NOTE | 2021-03-03 11:11 | PDOC ---
DATE OF SERVICE DATE: 03/03/21 TIME: 11:05 SUBJECTIVE ROS Seen on dialysis , no complaints S/P amputation - reports bleeding soaking the dressing OBJECTIVE Vital Signs Vital Signs Date Time Temp Pulse Resp B/P (MAP) Pulse Ox O2 Delivery O2 Flow Rate FiO2 03/03/21 09:52 12 97 03/03/21 09:45 70 113/70 Room Air 03/03/21 09:00 10 03/03/21 08:45 98.5 98.5 I & 0 Intake and Output 03/03/21 07:00 Intake Total 50 ml Output Total 100 ml Balance -50 ml IV Total 50 ml Output Urine Total 100 ml PHYSICAL EXAM Physical Exam GENERAL: no acute distress. HEENT: OM moist NECK: Supple. LUNGS: Clear bilaterally. No accessory muscle use. HEART: S1, S2. No murmurs. ABDOMEN: Soft, nontender, nondistended. Bowel sounds present. EXTREMITIES: post surgical dressing DERMATOLOGIC: Warm, dry skin. No generalized rash. NEUROLOGIC: Alert, oriented x 3, grossly nonfocal. PSYCHIATRIC: Cooperative, calm. ACCESS: Right upper arm AV fistula DIAGNOSIS/ASSESSMENT Assessment & Plan ESRD On HD MWF Seen on HD today , tolerating well, continue as ordered, [place] HyperKalemia POA - severe, no labs were ordered today . Dialysis today per his schedule Infected right great toe/Right first toe gangrene with underlying abscess s/p amputation this am Right second and third toe previous amputation with underlying abscess and necrotic tissue s/p excisional debridement, Status post amputations of the right second and third toes, 01/29/2021. COPD - stable Chronic diarrhea - stable currently Ulcerative colitis - s/p colon resection Diabetes mellitus Peripheral neuropathy Hypertension - cont amlodipine History of DVT, on warfarin therapy History of colorectal cancer - s/p resection H/o hepatitis C - in SVR Anemia Noted decreasing Hgb 11.5 in November . fu per primary, MIKEY ordered COMMENT/RELEVANT DATA Meds Current Medications Medications (Trade) Dose Ordered Sig/Raymon Start Time Stop Time Status Last Admin Dose Admin Acetaminophen (Tylenol) 650 mg PRN Q4HRS PRN 03/01/21 20:00 03/02/21 19:45 650 MG Albumin Human 200 ml @ 200 mls/hr 1X PRN PRN 03/03/21 10:00 03/03/21 15:59 Cefazolin Sodium 1 gm/Sodium Chloride 250 ml @ 250 mls/hr 1X ONCE 03/03/21 08:00 03/03/21 08:59 DC 03/03/21 08:20 Dextrose (Dextrose 50%-Water Syringe) 12.5 gm PRN Q15MIN PRN 03/01/21 20:00 Diphenhydramine HCl (Benadryl) 25 mg 1X PRN PRN 03/03/21 10:00 03/04/21 09:59 Docusate Sodium (Colace) 100 mg PRN DAILY PRN 03/01/21 20:00 Fentanyl Citrate (Fentanyl 2ml Vial) 100 mcg STK-MED ONCE 03/03/21 09:48 03/03/21 09:49 DC Heparin Sodium (Porcine) (Heparin Sodium) 5,000 unit Q12HR 03/01/21 21:00 03/02/21 10:11 5,000 UNIT Hydromorphone HCl (Dilaudid) 0.5 mg PRN Q10MIN PRN 03/03/21 07:00 03/04/21 06:59 Info (PHARMACY MONITORING -- do not chart) 1 each PRN DAILY PRN 03/03/21 10:00 Insulin Human Lispro (HumaLOG) 20 units 1X ONCE 03/02/21 13:00 03/02/21 13:01 DC 03/02/21 13:20 13 UNITS Lidocaine HCl (Lidocaine Pf 2% Vial) 5 ml STK-MED ONCE 03/03/21 07:09 03/03/21 07:10 DC Lidocaine HCl (Xylocaine-Mpf 1% 2ml Vial) 2 ml 1X PRN PRN 03/03/21 10:00 03/04/21 09:59 Micafungin Sodium 100 mg/Dextrose 100 ml @ 100 mls/hr Q24H 03/02/21 12:00 03/02/21 13:07 100 MLS/HR Morphine Sulfate (Morphine Sulfate) 1 mg PRN Q10MIN PRN 03/03/21 07:00 03/04/21 06:59 Ondansetron HCl (Zofran) 4 mg STK-MED ONCE 03/03/21 08:38 03/03/21 08:38 DC Oxycodone/ Acetaminophen (Percocet 5/325) 1 tab PRN Q4HRS PRN 03/01/21 20:00 6/7/21 05:51 1 TAB Phenylephrine HCl (PHENYLEPHRINE in 0.9% NACL PF) 1 mg STK-MED ONCE 03/03/21 08:27 03/03/21 08:27 DC Piperacillin Sod/ Tazobactam Sod (Zosyn Per Pharmacy) 1 each PRN DAILY PRN 03/02/21 11:00 Piperacillin Sod/ Tazobactam Sod 2.25 gm/Sodium Chloride 50 ml @ 100 mls/hr Q8HRS 03/02/21 12:00 03/03/21 05:50 100 MLS/HR Piperacillin Sod/ Tazobactam Sod 4.5 gm/Sodium Chloride 100 ml @ 200 mls/hr 1X ONCE 03/01/21 15:30 03/01/21 15:59 DC 03/01/21 16:25 200 MLS/HR Prochlorperazine Edisylate (Compazine) 5 mg PACU PRN PRN 03/03/21 07:00 03/04/21 06:59 Propofol (Diprivan) 200 mg STK-MED ONCE 03/03/21 07:09 03/03/21 07:10 DC Ringer's Solution 1,000 ml @ 30 mls/hr Q24H 03/03/21 07:00 03/03/21 18:59 Sennosides (Senna) 17.2 mg PRN BID PRN 03/01/21 20:00 Sevoflurane (Ultane) 60 ml STK-MED ONCE 03/03/21 08:27 03/03/21 08:28 DC Sodium Chloride 1,000 ml @ 400 mls/hr Q2H30M PRN 03/03/21 10:00 03/03/21 21:59 Vancomycin HCl (Vanco Per Pharmacy) 1 each PRN DAILY PRN 03/02/21 11:00 03/03/21 08:16 1 EACH Vancomycin HCl (Vancomycin Random Level) 1 each 1X ONCE 03/03/21 06:00 03/03/21 06:01 DC Vancomycin HCl 500 mg/Sodium Chloride 100 ml @ 100 mls/hr 1X ONCE 03/02/21 16:00 03/02/21 16:59 DC 03/02/21 16:37 100 MLS/HR Vancomycin HCl 2 gm/Sodium Chloride 500 ml @ 250 mls/hr 1X ONCE 03/01/21 16:00 03/01/21 17:59 DC 03/01/21 17:00 250 MLS/HR Lab Laboratory Tests Test 03/02/21 11:35 03/02/21 16:40 03/02/21 17:33 03/02/21 19:12 Glucose (Fingerstick) 359 mg/dL (70-99) 99 mg/dL (70-99) 128 mg/dL (70-99) SARS-CoV-2 Antigen (Rapid) Negative (NEGATIVE) Test 03/03/21 04:35 03/03/21 06:31 Random Vancomycin Level 20.9 mcg/mL Glucose (Fingerstick) 127 mg/dL (70-99) Results All relevant outside records, renal labs, imaging studies, telemetry/EKG's were reviewed. Justicifation of Admission Dx: Justifications for Admission: Justification of Admission Dx: Yes Chronic Renal Failure: Electrolyte Abnormality NNAMDI TESFAYE MD Mar 03, 2021 11:11
--- NOTE | 2021-03-03 13:03 | NUR ---
SW following. Discussed with RN, pt from home with family, room air, ada diet, rapid COVID-19 negative. Pt having toe amputation today. Therapy ordered. ID following. Pt does dialysis at [facility] (ph: [phone]). SW will continue to follow.
[2021-03-03] MEDS: MICAFUNGIN 100 MG in IV DEXTROSE 5% 100ML 100 ML IV SCH (14:55)
[2021-03-03] MEDS: VANCOMYCIN 500 MG in IV NORMAL SALINE 100ML 100 ML IV SCH (16:51)
[2021-03-03] MEDS ORDERED: DARBEPOETIN ALFA 60 MCG/0.3 ML DISP.SYRIN. SQ SCH (21:00)
[2021-03-04] MEDS: oxyCODONE/APAP 5/325 1 TAB TABLET PO PRN ×2 (00:33→06:15)
[2021-03-04 02:39] VITALS: BP 159/70
--- NOTE | 2021-03-04 06:11 | NUR ---
Entered patient's room to administer 0600 dose of Zosyn, patient bed found empty and patient could be heard grunting from bathroom. Education provided on importance of non-weightbearing status on postop foot. Patient verbalized understanding.
[2021-03-04] MEDS: PIPERACILLIN/TAZOBACTAM 2.25 GM in IV NORMAL SALINE 50ML 50 ML IV SCH ×3 (06:14→21:44)
[2021-03-04 07:00] VITALS: BP 120/63
[2021-03-04] MEDS: INSULIN LISPRO 300 UNITS/3 ML VIAL. SQ SCH ×3 (08:15→17:43)
[2021-03-04] MEDS: HEPARIN for SUB-Q USE 5,000 UNIT/ML VIAL. SQ SCH ×2 (09:00→20:40)
[2021-03-04] MEDS: MORPHINE SULFATE 2 MG/ML VIAL. IV PRN ×3 (09:46→20:34)
--- NOTE | 2021-03-04 10:16 | PDOC ---
Infectious Disease Note Subjective Subjective pt is feeling ok ROS ROS no n/v/d/ Vital Sign Vital Signs Vital Signs Date Time Temp Pulse Resp B/P (MAP) Pulse Ox O2 Delivery O2 Flow Rate FiO2 03/04/21 08:17 Room Air 03/04/21 07:00 99.0 71 18 120/63 (82) 98 99.0 03/03/21 09:00 10 Physical Exam PHYSICAL EXAM GENERAL: Alert, oriented x 3 male, lying in bed comfortably, in no acute distress. HEENT: Normocephalic, atraumatic. Conjunctivae are clear. Oropharynx is clear. NECK: Supple. LUNGS: Clear bilaterally. No accessory muscle use. HEART: S1, S2. No murmurs. ABDOMEN: Soft, nontender, nondistended. Bowel sounds present. EXTREMITIES: post surgical dressing not opened DERMATOLOGIC: Warm, dry skin. No generalized rash. NEUROLOGIC: Alert, oriented x 3, grossly nonfocal. PSYCHIATRIC: Cooperative, calm. ACCESS: Right upper arm AV fistula clean. Labs Lab Laboratory Tests Test 03/03/21 11:44 03/03/21 17:28 03/03/21 18:56 03/04/21 07:24 Glucose (Fingerstick) 238 mg/dL (70-99) 194 mg/dL (70-99) 290 mg/dL (70-99) 179 mg/dL (70-99) Micro GRAM STAIN Final Final GRAM NEGATIVE RODS:RARE GRAM POSITIVE COCCI:RARE RBC:MANY SQUAMOUS EPI CELL:RARE PMN (WBCs):RARE Unless otherwise specified, Testing Performed by: [address] [address] For Inquires, the Physician may contact the Microbiology department at [phone] ANAEROBIC-AEROBIC CULTURE PENDING Objective Assessment IMPRESSION: 1. Infected right great toe.s/p amputation 2. Acute severe hyperkalemia. 3. Status post amputations of the right second and third toes, 01/29/2021. Superficial swab cultures were positive for Dorita parapsilosis and Staphylococcus epidermidis, was discharged on amoxicillin. 4. End-stage renal disease, on hemodialysis. Missed hemodialysis session. 5. History of diabetes mellitus. 6. History of peripheral vascular disease. 7. Atrial fibrillation, on Coumadin. Plan Plan of Care IV Vanco and Zosyn micafungin Local wound care as directed d/w Dr Jose ANDRADE,LIZZETH Hanna MD Mar 04, 2021 10:16
[2021-03-04 11:00] VITALS: BP 146/68
--- NOTE | 2021-03-04 11:05 | PDOC ---
DATE OF SERVICE DATE: 03/04/21 TIME: 11:03 SUBJECTIVE ROS Stable OBJECTIVE Vital Signs Vital Signs Date Time Temp Pulse Resp B/P (MAP) Pulse Ox O2 Delivery O2 Flow Rate FiO2 03/04/21 11:00 99.0 76 18 146/68 (94) 99 Room Air 99.0 03/03/21 09:00 10 I & 0 Intake and Output 03/04/21 07:00 Intake Total 736 ml Output Total 310 ml Balance 426 ml Intake Oral 236 ml IV Total 500 ml Output Urine Total 300 ml Estimated Blood Loss 10 ml # Voids 2 # Bowel Movements 1 PHYSICAL EXAM Physical Exam GENERAL: no acute distress. HEENT: OM moist NECK: Supple. LUNGS: Clear bilaterally. No accessory muscle use. HEART: S1, S2. No murmurs. ABDOMEN: Soft, nontender, nondistended. Bowel sounds present. EXTREMITIES: post surgical dressing DERMATOLOGIC: Warm, dry skin. No generalized rash. NEUROLOGIC: Alert, oriented x 3, grossly nonfocal. PSYCHIATRIC: Cooperative, calm. ACCESS: Right upper arm AV fistula DIAGNOSIS/ASSESSMENT Assessment & Plan ESRD On HD MWF Currently noindication for HD today; Infected right great toe/Right first toe gangrene with underlying abscess s/p amputation this am Right second and third toe previous amputation with underlying abscess and necrotic tissue s/p excisional debridement, Status post amputations of the right second and third toes, 01/29/2021. COPD - stable Chronic diarrhea - stable currently Ulcerative colitis - s/p colon resection Diabetes mellitus Peripheral neuropathy Hypertension - cont amlodipine History of DVT, on warfarin therapy History of colorectal cancer - s/p resection H/o hepatitis C - in SVR Anemia Noted decreasing Hgb 11.5 in November . fu per primary, MIKEY ordered COMMENT/RELEVANT DATA Meds Current Medications Medications (Trade) Dose Ordered Sig/Raymon Start Time Stop Time Status Last Admin Dose Admin Acetaminophen (Tylenol) 650 mg PRN Q4HRS PRN 03/01/21 20:00 03/02/21 19:45 650 MG Albumin Human 200 ml @ 200 mls/hr 1X PRN PRN 03/03/21 10:00 03/03/21 15:59 DC Cefazolin Sodium 1 gm/Sodium Chloride 250 ml @ 250 mls/hr 1X ONCE 03/03/21 08:00 03/03/21 08:59 DC 03/03/21 08:20 Darbepoetin Amador (ARANESP for DIALYSIS PTS) 60 mcg WEEKLYHS 03/03/21 21:00 03/03/21 20:29 60 MCG Dextrose (Dextrose 50%-Water Syringe) 12.5 gm PRN Q15MIN PRN 03/01/21 20:00 Diphenhydramine HCl (Benadryl) 25 mg 1X PRN PRN 03/03/21 10:00 03/04/21 09:59 DC 03/03/21 13:00 25 MG Docusate Sodium (Colace) 100 mg PRN DAILY PRN 03/01/21 20:00 Fentanyl Citrate (Fentanyl 2ml Vial) 100 mcg STK-MED ONCE 03/03/21 09:48 03/03/21 09:49 DC Heparin Sodium (Porcine) (Heparin Sodium) 5,000 unit Q12HR 03/01/21 21:00 03/03/21 20:35 5,000 UNIT Hydromorphone HCl (Dilaudid) 0.5 mg PRN Q10MIN PRN 03/03/21 07:00 03/04/21 06:59 DC Info (PHARMACY MONITORING -- do not chart) 1 each PRN DAILY PRN 03/03/21 10:00 Insulin Human Lispro (HumaLOG) 20 units 1X ONCE 03/02/21 13:00 03/02/21 13:01 DC 03/02/21 13:20 13 UNITS Lidocaine HCl (Lidocaine Pf 2% Vial) 5 ml STK-MED ONCE 03/03/21 07:09 03/03/21 07:10 DC Lidocaine HCl (Xylocaine-Mpf 1% 2ml Vial) 2 ml 1X PRN PRN 03/03/21 10:00 03/04/21 09:59 DC 03/03/21 12:45 2 ML Micafungin Sodium 100 mg/Dextrose 100 ml @ 100 mls/hr Q24H 03/02/21 12:00 03/03/21 14:55 100 MLS/HR Morphine Sulfate (Morphine Sulfate) 2 mg PRN Q2HR PRN 03/04/21 08:15 03/04/21 09:46 2 MG Ondansetron HCl (Zofran) 4 mg STK-MED ONCE 03/03/21 08:38 03/03/21 08:38 DC Oxycodone/ Acetaminophen (Percocet 5/325) 1 tab PRN Q4HRS PRN 03/01/21 20:00 03/04/21 06:15 1 TAB Phenylephrine HCl (PHENYLEPHRINE in 0.9% NACL PF) 1 mg STK-MED ONCE 03/03/21 08:27 03/03/21 08:27 DC Piperacillin Sod/ Tazobactam Sod (Zosyn Per Pharmacy) 1 each PRN DAILY PRN 03/02/21 11:00 Piperacillin Sod/ Tazobactam Sod 2.25 gm/Sodium Chloride 50 ml @ 100 mls/hr Q8HRS 03/02/21 12:00 03/04/21 06:14 100 MLS/HR Piperacillin Sod/ Tazobactam Sod 4.5 gm/Sodium Chloride 100 ml @ 200 mls/hr 1X ONCE 03/01/21 15:30 03/01/21 15:59 DC 03/01/21 16:25 200 MLS/HR Prochlorperazine Edisylate (Compazine) 5 mg PACU PRN PRN 03/03/21 07:00 03/04/21 06:59 DC Propofol (Diprivan) 200 mg STK-MED ONCE 03/03/21 07:09 03/03/21 07:10 DC Ringer's Solution 1,000 ml @ 30 mls/hr Q24H 03/03/21 07:00 03/03/21 18:59 DC Sennosides (Senna) 17.2 mg PRN BID PRN 03/01/21 20:00 Sevoflurane (Ultane) 60 ml STK-MED ONCE 03/03/21 08:27 03/03/21 08:28 DC Sodium Chloride 1,000 ml @ 400 mls/hr Q2H30M PRN 03/03/21 10:00 03/03/21 21:59 DC Vancomycin HCl (Vanco Per Pharmacy) 1 each PRN DAILY PRN 03/02/21 11:00 03/03/21 08:16 1 EACH Vancomycin HCl (Vancomycin Random Level) 1 each 1X ONCE 03/03/21 06:00 03/03/21 06:01 DC Vancomycin HCl 500 mg/Sodium Chloride 100 ml @ 100 mls/hr 1X ONCE 03/02/21 16:00 03/02/21 16:59 DC 03/02/21 16:37 100 MLS/HR Vancomycin HCl 2 gm/Sodium Chloride 500 ml @ 250 mls/hr 1X ONCE 03/01/21 16:00 03/01/21 17:59 DC 03/01/21 17:00 250 MLS/HR Lab Laboratory Tests Test 03/03/21 11:44 03/03/21 17:28 03/03/21 18:56 03/04/21 07:24 Glucose (Fingerstick) 238 mg/dL (70-99) 194 mg/dL (70-99) 290 mg/dL (70-99) 179 mg/dL (70-99) Results All relevant outside records, renal labs, imaging studies, telemetry/EKG's were reviewed. Justicifation of Admission Dx: Justifications for Admission: Justification of Admission Dx: Yes Chronic Renal Failure: Electrolyte Abnormality NNAMDI TESFAYE MD Mar 04, 2021 11:05
[2021-03-04] MEDS: MICAFUNGIN 100 MG in IV DEXTROSE 5% 100ML 100 ML IV SCH (12:24)
--- NOTE | 2021-03-04 14:59 | PDOC ---
[facility] PROGRESS NOTE Date of Service DOS: DATE: 03/04/21 TIME: 15:04 Chief Complaint Chief Complaint Acute severe hyperkalemia Anemia of chronic kidney disease Acute right toe infection, concerning for arterial ulceration Acute electrolyte derangementhyperchloremia, hyperkalemia due to missed hemodi alysis Metabolic acidosis Hyperglycemiauncontrolled History of diabetes mellitus type 2 Severe protein malnutrition History of peripheral vascular disease with amputation of the right lower extremity digits History of Present Illness History of Present Illness 03/04, need surg eating well pain OK needs better His right first toe is quite diseased with a loose toenail with some blood and some dry gangrene on the tip of the toe Discussed with RN Chart reviewed He is apparently going to surgery in the morning Vitals/I&O Vitals/I&O: Vital Signs Date Time Temp Pulse Resp B/P (MAP) Pulse Ox O2 Delivery O2 Flow Rate FiO2 03/04/21 11:00 99.0 76 18 146/68 (94) 99 Room Air 99.0 03/03/21 09:00 10 I & O 03/03/21 03/03/21 03/04/21 14:53 22:53 06:53 Intake Total 686 ml 50 ml Output Total 310 ml Balance 376 ml 50 ml Physical Exam Physical Exam: GENERAL: Alert, oriented x 3 male, lying in bed comfortably, in no acute distress. HEENT: Normocephalic, atraumatic. Conjunctivae are clear. Oropharynx is clear. NECK: Supple. LUNGS: Clear bilaterally. No accessory muscle use. HEART: S1, S2. No murmurs. ABDOMEN: Soft, nontender, nondistended. Bowel sounds present. EXTREMITIES: post surgical dressing not opened DERMATOLOGIC: Warm, dry skin. No generalized rash. NEUROLOGIC: Alert, oriented x 3, grossly nonfocal. PSYCHIATRIC: Cooperative, calm. ACCESS: Right upper arm AV fistula clean. General: No acute distress Heart: Regular rate Lungs: Clear Abdomen: Normal bowel sounds Extremities: Other (Please see above but basically the first toe is quite diseased with gangrene and some bleeding and a loose toenail) Skin: Other (Very dry skin on the lower extremity) Labs Labs: Laboratory Tests Test 03/03/21 17:28 03/03/21 18:56 03/04/21 07:24 03/04/21 11:43 Glucose (Fingerstick) 194 mg/dL (70-99) 290 mg/dL (70-99) 179 mg/dL (70-99) 185 mg/dL (70-99) Assessment and Plan Assessmemt and Plan Problems Medical Problems: (1) Toe infection Status: Acute Comment Review of Relevant I have reviewed the following items keron (where applicable) has been applied. Medications: Current Medications Medications (Trade) Dose Ordered Sig/Raymon Route PRN Reason Start Time Stop Time Status Last Admin Dose Admin Vancomycin HCl 500 mg/Sodium Chloride 100 ml @ 100 mls/hr QMWF IV 03/03/21 16:00 03/03/21 16:51 Darbepoetin Amador (ARANESP for DIALYSIS PTS) 60 mcg WEEKLYHS SQ 03/03/21 21:00 03/03/21 20:29 Morphine Sulfate (Morphine Sulfate) 2 mg PRN Q2HR PRN IV PAIN 03/04/21 08:15 03/04/21 14:14 Justifications for Admission Other Justification HYPERKALEMIA, MISSED DIALYSIS ERVIN BOOGIE MD Mar 04, 2021 14:59
[2021-03-04 15:00] VITALS: BP 136/70
--- NOTE | 2021-03-04 17:07 | NUR ---
Wound/Ostomy Care Wound Type/Assessment: Patient seen per wound care consult. See wound assessment. Patient is known to us from previous admissions. Patient is s/p amputation Right 1st toe and debridement of 2nd and 3rd toes on 03/03/21. Orders to place wound vac. After explaining to the patient what the POC was and educating him on the wound vac, patient stated he wanted to discuss this with vascular prior to placing the vac. We explained the benefits of the wound vac, patient still declined at this time and said he would know tomorrow. Patient stated "it looks to heavy and didn't know about it" when referring to the vac. Patient agreeable to just simple dressing change at this time. Treatment Recommendations/Plan: Recommendations for wound vac if patient agreeable. Wound cleansed, assessed, measured, and pictured. Wound redressed with saline moistened gauze pads, and cover with ABD pad, and kerlix. Patient declined compete head to toe assessment. Education provided: Patient educated on dressing changes and wound vac therapy. Offloading surface/device: Patient has a half shoe in room at this time and bilateral heels elevated on pillows at this time as patient is in the chair at this time. Recommended Referrals/Tests: N/A Discharge Recommendations for dressings: Wound care will follow up with patient tomorrow to see if he will allow the wound vac to be placed after discussing it with vascular. If he declines we will continue with the current dressings or receive orders from vascular. Call light in reach.
[2021-03-04 19:00] VITALS: BP 156/77
--- NOTE | 2021-03-04 20:35 | NUR ---
Patient given morphine 2mg ivp, when asked his name and date, he became agitated, did state his name and day, when asked his pain level, he replies, "Every time I say its a '9', its always a '9', why do you all have to keep asking me this?" He is informed that since I've not been here all day, this is my first time to ask him. In assessing the patient, attempted to listen to his hemodialysis fistula, he refuses, "You don't have anything to do with dialysis, its on the 5th floor, why do you need to see it?", He is informed that it is part of my assessment, he continues to refuse to allow to hear a bruit or feel a thrill on his site, "It's just to listen and make sure it is not clotted off", per this typewriter aligner's reply. He refuses heparin, "I get that in dialysis..I don't need it in here". Monitoring..
--- NOTE | 2021-03-04 20:50 | NUR ---
Patient asks for benadryl to help him sleep, Dr Booth is called, order received for benadryl 25 PO.
--- NOTE | 2021-03-04 20:59 | NUR ---
Patient is scanned, benadryl capsule given, patient asks 'why didn't i GET IT THROUGH THIS IV? They have been giving it me that way?" Patient is told that since he has been eating ok, that its ordered by mouth, patient, a bit agitated, "How do you know I've been eating ok? You just told him what you wanted... you didn't ask me! I haven't been able to eat..I couldn't eat my stroganoff today..I couldn't chew it" This marketing underwriter replies that "I saw you up at the kitchenette in the [place].." Patient replies, "I just had some sherbet..that's not much...I gave my mom the turkey and dressing today, cause I couldn't eat it...I've not been eating...can't chew...' Did note he has dentures in denture cup, and pointed out that he has peanut butter on his table.." "But i'm still not eating...you're not listening to me!' monitoring....
[2021-03-04] MEDS ORDERED: diphenhydrAMINE HCL 25 MG CAPSULE PO PRN (21:00)
--- NOTE | 2021-03-04 21:44 | NUR ---
Patient's iv antibiotic started, he reports that he's not feeling sleepy yet, "That one they give me in the iv always helps me...I don t know why you told him I was eating, you don't know". This freelance copywriter said that since "I've not sen him vomit, and is snacking, the IVp benadryl wasn't really necessary" The patient agitated with this freelance copywriter, "I want a different nurse..can I get a different nurse..you don't even know, you shouldn't have said that I could take the pill without even asking me." He is informed that he can have a different nurse.
[2021-03-04 22:30] VITALS: BP 191/105
[2021-03-05] MEDS: oxyCODONE/APAP 5/325 1 TAB TABLET PO PRN (00:29)
[2021-03-05] MEDS: MORPHINE SULFATE 2 MG/ML VIAL. IV PRN ×4 (00:34→20:48)
[2021-03-05] MEDS: PIPERACILLIN/TAZOBACTAM 2.25 GM in IV NORMAL SALINE 50ML 50 ML IV SCH (06:10)
--- NOTE | 2021-03-05 06:57 | NUR ---
RN in room earlier in shift to give pt pain pill. Pt refused - insisting on IV morphine. RN attempted to get pt to take pill and pt wouldn't. Pt became frustrated with RN and when asked to put on tele, pt said he was "done with you." RN left room
[2021-03-05 07:00] VITALS: BP 157/81
[2021-03-05 07:03] LABS: CALCIUM 8.4 mg/dL (8.5-10.1); CREATININE 10.1 mg/dL (0.7-1.3); GFR 6.3; POTASSIUM 5.8 mmol/L (3.5-5.1)
[2021-03-05] MEDS ORDERED: IV NORMAL SALINE 1000ML BAG 1,000 ML IV PRN ×2 (07:30)
[2021-03-05] MEDS ORDERED: DIALYSIS PATIENT. MC PRN (07:30)
[2021-03-05] MEDS: INSULIN LISPRO 300 UNITS/3 ML VIAL. SQ SCH ×3 (08:00→17:41)
--- NOTE | 2021-03-05 08:07 | NUR ---
Pt's FSBS 185 this am. Pt unable to eat breakfast due to dialysis. Insulin nonadministered by this RN due to pt not eating.
[2021-03-05] MEDS ORDERED: LIDOCAINE 1% PF 2 ML VIAL. ID PRN (08:20)
[2021-03-05] MEDS ORDERED: diphenhydrAMINE 50 MG/ML VIAL IV PRN (09:00)
[2021-03-05] MEDS: HEPARIN for SUB-Q USE 5,000 UNIT/ML VIAL. SQ SCH ×2 (09:00→21:00)
[2021-03-05] MEDS: diphenhydrAMINE 50 MG/ML VIAL IV PRN ×2 (09:06→22:17)
--- NOTE | 2021-03-05 10:08 | PDOC ---
Infectious Disease Note Subjective Subjective pt is feeling ok ROS ROS No nausea vomiting diarrhea Vital Sign Vital Signs Vital Signs Date Time Temp Pulse Resp B/P (MAP) Pulse Ox O2 Delivery O2 Flow Rate FiO2 03/05/21 07:38 Room Air 03/05/21 07:00 98.1 69 18 157/81 (106) 97 98.1 Physical Exam PHYSICAL EXAM GENERAL: Alert, oriented x 3 male, lying in bed comfortably, in no acute distress. HEENT: Normocephalic, atraumatic. Conjunctivae are clear. Oropharynx is clear. NECK: Supple. LUNGS: Clear bilaterally. No accessory muscle use. HEART: S1, S2. No murmurs. ABDOMEN: Soft, nontender, nondistended. Bowel sounds present. EXTREMITIES: post surgical dressing not opened DERMATOLOGIC: Warm, dry skin. No generalized rash. NEUROLOGIC: Alert, oriented x 3, grossly nonfocal. PSYCHIATRIC: Cooperative, calm. ACCESS: Right upper arm AV fistula clean. Labs Lab Laboratory Tests Test 03/04/21 11:43 03/04/21 17:34 03/04/21 18:48 03/05/21 04:20 Glucose (Fingerstick) 185 mg/dL (70-99) 230 mg/dL (70-99) 219 mg/dL (70-99) Sodium Level 141 mmol/L (136-145) Potassium Level 5.8 mmol/L (3.5-5.1) Chloride Level 107 mmol/L (98-107) Carbon Dioxide Level 24 mmol/L (21-32) Anion Gap 10 (6-14) Blood Urea Nitrogen 45 mg/dL (8-26) Creatinine 10.1 mg/dL (0.7-1.3) Estimated GFR (Cockcroft-Gault) 6.3 Glucose Level 208 mg/dL (70-99) Calcium Level 8.4 mg/dL (8.5-10.1) Test 03/05/21 07:02 Glucose (Fingerstick) 185 mg/dL (70-99) Micro GRAM STAIN Final Final GRAM NEGATIVE RODS:RARE GRAM POSITIVE COCCI:RARE RBC:MANY SQUAMOUS EPI CELL:RARE PMN (WBCs):RARE Unless otherwise specified, Testing Performed by: [address] [address] For Inquires, the Physician may contact the Microbiology department at [phone] ANAEROBIC-AEROBIC CULTURE PENDING Objective Assessment IMPRESSION: 1. Infected right great toe.s/p amputation 2. Acute severe hyperkalemia. 3. Status post amputations of the right second and third toes, 01/29/2021. Superficial swab cultures were positive for Dorita parapsilosis and Staphylococcus epidermidis, was discharged on amoxicillin. 4. End-stage renal disease, on hemodialysis. Missed hemodialysis session. 5. History of diabetes mellitus. 6. History of peripheral vascular disease. 7. Atrial fibrillation, on Coumadin. Plan Plan of Care Culture is positive with Enterobacter and Proteus is also gram-positive cocci IV Vanco and change Zosyn to cefepime since will be doing Vanco and cefepime through dialysis Local wound care as directed LIZZETH ANDRADE MD Mar 05, 2021 10:08
--- NOTE | 2021-03-05 11:31 | PDOC ---
DATE OF SERVICE DATE: 03/05/21 TIME: 11:31 SUBJECTIVE ROS Stable , no complaints during dialysis OBJECTIVE Vital Signs Vital Signs Date Time Temp Pulse Resp B/P (MAP) Pulse Ox O2 Delivery O2 Flow Rate FiO2 03/05/21 07:38 Room Air 03/05/21 07:00 98.1 69 18 157/81 (106) 97 98.1 I & 0 Intake and Output 03/05/21 07:00 Intake Total 350 ml Balance 350 ml Intake Oral 200 ml IV Total 150 ml # Bowel Movements 1 PHYSICAL EXAM Physical Exam GENERAL: no acute distress. HEENT: OM moist NECK: Supple. LUNGS: Clear bilaterally. No accessory muscle use. HEART: S1, S2. No murmurs. ABDOMEN: Soft, nontender, nondistended. Bowel sounds present. EXTREMITIES: post surgical dressing DERMATOLOGIC: Warm, dry skin. No generalized rash. NEUROLOGIC: Alert, oriented x 3, grossly nonfocal. PSYCHIATRIC: Cooperative, calm. ACCESS: Right upper arm AV fistula DIAGNOSIS/ASSESSMENT Assessment & Plan ESRD On HD MWF seen during dialysis, tolerating well. Continue as ordered, [place] Infected right great toe/Right first toe gangrene with underlying abscess s/p amputation Right second and third toe previous amputation with underlying abscess and necrotic tissue s/p excisional debridement, Status post amputations of the right second and third toes, 01/29/2021. COPD - stable Chronic diarrhea - stable currently Ulcerative colitis - s/p colon resection Diabetes mellitus Peripheral neuropathy Hypertension - cont amlodipine History of DVT, on warfarin therapy History of colorectal cancer - s/p resection H/o hepatitis C - in SVR Anemia Noted decreasing Hgb 11.5 in November . fu per primary, MIKEY ordered COMMENT/RELEVANT DATA Meds Current Medications Medications (Trade) Dose Ordered Sig/Raymon Start Time Stop Time Status Last Admin Dose Admin Acetaminophen (Tylenol) 650 mg PRN Q4HRS PRN 03/01/21 20:00 03/02/21 19:45 650 MG Albumin Human 200 ml @ 200 mls/hr 1X PRN PRN 03/03/21 10:00 03/03/21 15:59 DC Cefazolin Sodium 1 gm/Sodium Chloride 250 ml @ 250 mls/hr 1X ONCE 03/03/21 08:00 03/03/21 08:59 DC 03/03/21 08:20 Cefepime HCl (Maxipime) 1 gm Q24H 03/05/21 12:00 Darbepoetin Amador (ARANESP for DIALYSIS PTS) 60 mcg WEEKLYHS 03/03/21 21:00 03/03/21 20:29 60 MCG Dextrose (Dextrose 50%-Water Syringe) 12.5 gm PRN Q15MIN PRN 03/01/21 20:00 Diphenhydramine HCl (Benadryl) 25 mg 1X PRN PRN 03/05/21 09:00 03/06/21 08:59 Docusate Sodium (Colace) 100 mg PRN DAILY PRN 03/01/21 20:00 Fentanyl Citrate (Fentanyl 2ml Vial) 100 mcg STK-MED ONCE 03/03/21 09:48 03/03/21 09:49 DC Heparin Sodium (Porcine) (Heparin Sodium) 5,000 unit Q12HR 03/01/21 21:00 03/03/21 20:35 5,000 UNIT Hydromorphone HCl (Dilaudid) 0.5 mg PRN Q10MIN PRN 03/03/21 07:00 03/04/21 06:59 DC Info (PHARMACY MONITORING -- do not chart) 1 each PRN DAILY PRN 03/05/21 07:30 Insulin Human Lispro (HumaLOG) 20 units 1X ONCE 03/02/21 13:00 03/02/21 13:01 DC 03/02/21 13:20 13 UNITS Lidocaine HCl (Lidocaine Pf 2% Vial) 5 ml STK-MED ONCE 03/03/21 07:09 03/03/21 07:10 DC Lidocaine HCl (Xylocaine-Mpf 1% 2ml Vial) 0.25 ml PRN DAILY PRN 03/05/21 08:20 03/05/21 08:35 0.25 ML Micafungin Sodium 100 mg/Dextrose 100 ml @ 100 mls/hr Q24H 03/02/21 12:00 03/05/21 11:11 DC 03/04/21 12:24 100 MLS/HR Morphine Sulfate (Morphine Sulfate) 2 mg PRN Q2HR PRN 03/04/21 08:15 03/05/21 07:28 2 MG Ondansetron HCl (Zofran) 4 mg STK-MED ONCE 03/03/21 08:38 03/03/21 08:38 DC Oxycodone/ Acetaminophen (Percocet 5/325) 1 tab PRN Q4HRS PRN 03/01/21 20:00 03/04/21 06:15 1 TAB Phenylephrine HCl (PHENYLEPHRINE in 0.9% NACL PF) 1 mg STK-MED ONCE 03/03/21 08:27 03/03/21 08:27 DC Piperacillin Sod/ Tazobactam Sod (Zosyn Per Pharmacy) 1 each PRN DAILY PRN 03/02/21 11:00 Piperacillin Sod/ Tazobactam Sod 2.25 gm/Sodium Chloride 50 ml @ 100 mls/hr Q8HRS 03/02/21 12:00 03/05/21 11:11 DC 03/05/21 06:10 100 MLS/HR Piperacillin Sod/ Tazobactam Sod 4.5 gm/Sodium Chloride 100 ml @ 200 mls/hr 1X ONCE 03/01/21 15:30 03/01/21 15:59 DC 03/01/21 16:25 200 MLS/HR Prochlorperazine Edisylate (Compazine) 5 mg PACU PRN PRN 03/03/21 07:00 03/04/21 06:59 DC Propofol (Diprivan) 200 mg STK-MED ONCE 03/03/21 07:09 03/03/21 07:10 DC Ringer's Solution 1,000 ml @ 30 mls/hr Q24H 03/03/21 07:00 03/03/21 18:59 DC Sennosides (Senna) 17.2 mg PRN BID PRN 03/01/21 20:00 Sevoflurane (Ultane) 60 ml STK-MED ONCE 03/03/21 08:27 03/03/21 08:28 DC Sodium Chloride 1,000 ml @ 400 mls/hr Q2H30M PRN 03/05/21 07:30 03/05/21 19:29 Vancomycin HCl (Vanco Per Pharmacy) 1 each PRN DAILY PRN 03/02/21 11:00 03/03/21 08:16 1 EACH Vancomycin HCl (Vancomycin Random Level) 1 each 1X ONCE 03/03/21 06:00 03/03/21 06:01 DC Vancomycin HCl 500 mg/Sodium Chloride 100 ml @ 100 mls/hr 1X ONCE 03/02/21 16:00 03/02/21 16:59 DC 03/02/21 16:37 100 MLS/HR Vancomycin HCl 2 gm/Sodium Chloride 500 ml @ 250 mls/hr 1X ONCE 03/01/21 16:00 03/01/21 17:59 DC 03/01/21 17:00 250 MLS/HR Lab Laboratory Tests Test 03/04/21 11:43 03/04/21 17:34 03/04/21 18:48 03/05/21 04:20 Glucose (Fingerstick) 185 mg/dL (70-99) 230 mg/dL (70-99) 219 mg/dL (70-99) Sodium Level 141 mmol/L (136-145) Potassium Level 5.8 mmol/L (3.5-5.1) Chloride Level 107 mmol/L (98-107) Carbon Dioxide Level 24 mmol/L (21-32) Anion Gap 10 (6-14) Blood Urea Nitrogen 45 mg/dL (8-26) Creatinine 10.1 mg/dL (0.7-1.3) Estimated GFR (Cockcroft-Gault) 6.3 Glucose Level 208 mg/dL (70-99) Calcium Level 8.4 mg/dL (8.5-10.1) Test 03/05/21 07:02 Glucose (Fingerstick) 185 mg/dL (70-99) Results All relevant outside records, renal labs, imaging studies, telemetry/EKG's were reviewed. Justicifation of Admission Dx: Justifications for Admission: Justification of Admission Dx: Yes Chronic Renal Failure: Electrolyte Abnormality NNAMDI TESFAYE MD Mar 05, 2021 11:31
[2021-03-05] MEDS: CEFEPIME HCL IV Push 1 GM VIAL. IVP SCH (12:53)
--- NOTE | 2021-03-05 13:25 | PDOC ---
[employer] PROGRESS NOTE Date of Service DOS: DATE: 03/05/21 TIME: 13:24 Chief Complaint Chief Complaint Right first toe gangrene with underlying abscess. Acute severe hyperkalemia Anemia of chronic kidney disease Acute electrolyte derangementhyperchloremia, hyperkalemia due to missed hemodialysis Metabolic acidosis Hyperglycemiauncontrolled History of diabetes mellitus type 2 Severe protein malnutrition History of peripheral vascular disease with amputation of the right lower extremity digits History of Present Illness History of Present Illness 03/05. POD #2 constipatied, will sched stool softeneres, he has not gotten his PRN doses, OOB, cont abx dc soon, pain OK 03/04, need surg eating well pain OK needs better His right first toe is quite diseased with a loose toenail with some blood and some dry gangrene on the tip of the toe Discussed with RN Chart reviewed He is apparently going to surgery in the morning Vitals/I&O Vitals/I&O: Vital Signs Date Time Temp Pulse Resp B/P (MAP) Pulse Ox O2 Delivery O2 Flow Rate FiO2 03/05/21 07:38 Room Air 03/05/21 07:00 98.1 69 18 157/81 (106) 97 98.1 I & O 03/04/21 03/04/21 03/05/21 15:00 23:00 07:00 Intake Total 350 ml Balance 350 ml Physical Exam Physical Exam: GENERAL: Alert, oriented x 3 male, lying in bed comfortably, in no acute distress. HEENT: Normocephalic, atraumatic. Conjunctivae are clear. Oropharynx is clear. NECK: Supple. LUNGS: Clear bilaterally. No accessory muscle use. HEART: S1, S2. No murmurs. ABDOMEN: Soft, nontender, nondistended. Bowel sounds present. EXTREMITIES: post surgical dressing not opened DERMATOLOGIC: Warm, dry skin. No generalized rash. NEUROLOGIC: Alert, oriented x 3, grossly nonfocal. PSYCHIATRIC: Cooperative, calm. ACCESS: Right upper arm AV fistula clean. General: No acute distress Heart: Regular rate Lungs: Clear Abdomen: Normal bowel sounds Extremities: Other (Please see above but basically the first toe is quite diseased with gangrene and some bleeding and a loose toenail) Skin: Other (Very dry skin on the lower extremity) Labs Labs: Laboratory Tests Test 03/04/21 17:34 03/04/21 18:48 03/05/21 04:20 03/05/21 07:02 Glucose (Fingerstick) 230 mg/dL (70-99) 219 mg/dL (70-99) 185 mg/dL (70-99) Sodium Level 141 mmol/L (136-145) Potassium Level 5.8 mmol/L (3.5-5.1) Chloride Level 107 mmol/L (98-107) Carbon Dioxide Level 24 mmol/L (21-32) Anion Gap 10 (6-14) Blood Urea Nitrogen 45 mg/dL (8-26) Creatinine 10.1 mg/dL (0.7-1.3) Estimated GFR (Cockcroft-Gault) 6.3 Glucose Level 208 mg/dL (70-99) Calcium Level 8.4 mg/dL (8.5-10.1) Assessment and Plan Assessmemt and Plan Problems Medical Problems: (1) Toe infection Status: Acute Comment Review of Relevant I have reviewed the following items keron (where applicable) has been applied. Medications: Current Medications Medications (Trade) Dose Ordered Sig/Raymon Route PRN Reason Start Time Stop Time Status Last Admin Dose Admin Diphenhydramine HCl (Benadryl) 25 mg PRN QHS PRN PO INSOMNIA 03/04/21 21:00 03/04/21 20:59 Lidocaine HCl (Xylocaine-Mpf 1% 2ml Vial) 0.25 ml PRN DAILY PRN ID x 2 sites pre dialysis needle 03/05/21 08:20 03/05/21 08:35 Diphenhydramine HCl (Benadryl) 25 mg 1X PRN PRN IV ITCHING 03/05/21 09:00 03/06/21 08:59 03/05/21 09:06 Cefepime HCl (Maxipime) 1 gm Q24H IVP 03/05/21 12:00 03/05/21 12:53 Justifications for Admission Other Justification HYPERKALEMIA, MISSED DIALYSIS ERVIN BOOGIE MD Mar 05, 2021 13:25
[2021-03-05] MEDS: VANCOMYCIN PER PHARMACY MC PRN (13:26)
[2021-03-05] MEDS ORDERED: POLYETHYLENE GLYCOL 3350 17 GM PACKET. PO ONE (14:00)
[2021-03-05] MEDS: DOCUSATE SODIUM 100 MG CAPSULE. PO SCH (14:27)
[2021-03-05 15:00] VITALS: BP 162/75
--- NOTE | 2021-03-05 16:03 | NUR ---
Wound/Ostomy Care Wound Type/Assessment: Patient seen per wound care consult. See wound assessment. Patient is known to us from previous admissions. Patient is s/p amputation Right 1st toe and debridement of 2nd and 3rd toes on 03/03/21. Orders to place wound vac. Pt agreed to placement of wound vac but was still concerned about weight of machine. Educated pt that vac remains hanging on end of bed or on walker if ambulating. Treatment Recommendations/Plan: Vac placed at 125 NPWT continuous drainage with silver foam, will change on and Wednesday. Education provided: Patient educated on dressing changes and wound vac therapy. Offloading surface/device: Patient has a half shoe in room at this time and bilateral heels elevated on pillows at this time. Recommended Referrals/Tests: N/A Discharge Recommendations for dressings: pt will need wound vac therapy after discharge either with home health and WCC or in SNU
[2021-03-05] MEDS: VANCOMYCIN 500 MG in IV NORMAL SALINE 100ML 100 ML IV SCH (17:34)
[2021-03-05 19:00] VITALS: BP 159/74
[2021-03-05] MEDS: LACTOBACILLUS RHAMNOSUS GG 1 CAPSULE. PO SCH (20:46)
[2021-03-05 23:40] VITALS: BP 143/70
[2021-03-06 03:00] VITALS: BP 138/82
[2021-03-06 07:00] VITALS: BP 148/73
[2021-03-06] MEDS: LACTOBACILLUS RHAMNOSUS GG 1 CAPSULE. PO SCH (08:34)
[2021-03-06] MEDS: DOCUSATE SODIUM 100 MG CAPSULE. PO SCH (08:34)
[2021-03-06] MEDS: HEPARIN for SUB-Q USE 5,000 UNIT/ML VIAL. SQ SCH (08:34)
[2021-03-06] MEDS: INSULIN LISPRO 300 UNITS/3 ML VIAL. SQ SCH ×2 (08:36→11:50)
--- NOTE | 2021-03-06 09:09 | PATHOLOGY ---
[facility] Accession Number: [id number] . 01 Material submitted: . toe - RIGHT FIRST TOE. Modifiers: right, first . 01 Clinical history: . HYPERKALEMIA,ESRD,R GREAT GANGRENE RIGHT FIRST TOE AMPUTATION . 02 Diagnosis: Right first toe amputation: - Gangrenous necrosis and ulceration of skin of distal toe with acute cellulitis and acute osteomyelitis. - Proximal amputation margin negative for acute cellulitis/osteomyelitis. (NISHAM:jose juan; 03/05/2021) MBCyndi 03/05/2021 1710 Local . 02 Electronically signed: . Urban Hayden MD, Pathologist NPI- [id number] . 01 Gross description: . Received in formalin labeled "Casey Savage, right first toe" is a toe amputation specimen measuring 4.8 x 4.2 x 3.3 cm. The specimen has a smooth skin and soft tissue margin consistent with a surgical margin and a slightly roughened bone margin. The margin is inked entirely black. The specimen displays a castellon-yellow partially detached toenail measuring 2.4 x 2.3 x 0.8 cm. Beneath the nail is a castellon-brown ulcerated lesion measuring 3.2 x 2.7 x 2.5 cm. The lesion measures 1.3 cm to the closest skin and soft tissue margin and 2.5 cm to the bone margin. A public utilities sales representative cross-section of the specimen is submitted in cassettes A1-A3 from distal to proximal following decalcification. ([facility] [place] 03/04/2021) SY/[facility] 03/04/2021 1853 Local . 02 Pathologist provided ICD-10: M86.171, I96, L98.499, L03.031 . 02 CPT . 675536, 016205 Specimen Comment: A courtesy copy of this report has been sent to [phone] Specimen Comment: [phone], Specimen Comment: Report sent to ,DR EISENBERG / DR SRINIVASAN Performed at: [address] [facility], [place] [id number] MD Enrike Wu MD Phone: [phone] Performed at: [facility] [address] [place], [place] [id number] MD Urban Hayden MD Phone: [phone]
--- NOTE | 2021-03-06 09:55 | PDOC ---
Infectious Disease Note Subjective Subjective pt is feeling ok ROS ROS no n/v/d/ Vital Sign Vital Signs Vital Signs Date Time Temp Pulse Resp B/P (MAP) Pulse Ox O2 Delivery O2 Flow Rate FiO2 03/06/21 08:30 Room Air 03/06/21 07:00 98.6 70 17 148/73 (98) 100 98.6 Physical Exam PHYSICAL EXAM GENERAL: Alert, oriented x 3 male, lying in bed comfortably, in no acute distress. HEENT: Normocephalic, atraumatic. Conjunctivae are clear. Oropharynx is clear. NECK: Supple. LUNGS: Clear bilaterally. No accessory muscle use. HEART: S1, S2. No murmurs. ABDOMEN: Soft, nontender, nondistended. Bowel sounds present. EXTREMITIES: post surgical dressing not opened DERMATOLOGIC: Warm, dry skin. No generalized rash. NEUROLOGIC: Alert, oriented x 3, grossly nonfocal. PSYCHIATRIC: Cooperative, calm. ACCESS: Right upper arm AV fistula clean. Labs Lab Laboratory Tests Test 03/05/21 17:37 03/05/21 20:10 03/06/21 07:21 Glucose (Fingerstick) 290 mg/dL (70-99) 202 mg/dL (70-99) 185 mg/dL (70-99) Micro GRAM STAIN Final Final GRAM NEGATIVE RODS:FEW SQUAMOUS EPI CELL:RARE PMN (WBCs):FEW Unless otherwise specified, Testing Performed by: [address] [address] For Inquires, the Physician may contact the Microbiology department at [phone] ANAEROBIC-AEROBIC CULTURE Preliminary Preliminary MIXED AEROBIC DAWSON on 03/05/21 at 1325 INCLUDING: MANY [PROTEUS VULGARIS GROUP] on 03/04/21 at 1141 FEW [ALCALIGENES FAECALIS] FEW [STAPHYLOCOCCUS SIMULANS] PROTEUS VULGARIS GROUP PROTEUS VULGARIS GROUP ALCALIGENES FAECALIS STAPHYLOCOCCUS SIMULANS Unless otherwise specified, Testing Performed by: [address] [address] For Inquires, the Physician may contact the Microbiology department at [phone] GRAM STAIN Final Final GRAM NEGATIVE RODS:RARE GRAM POSITIVE COCCI:RARE RBC:MANY SQUAMOUS EPI CELL:RARE PMN (WBCs):RARE Unless otherwise specified, Testing Performed by: [address] [address] For Inquires, the Physician may contact the Microbiology department at [phone] ANAEROBIC-AEROBIC CULTURE Preliminary Preliminary MIXED AEROBIC DAWSON on 03/04/21 at 1140 INCLUDING: FEW [ENTEROBACTER CLOACAE COMPLEX] RARE [ENTEROCOCCUS FAECALIS] RARE [ALCALIGENES FAECALIS] RARE [STAPHYLOCOCCUS SIMULANS] RARE [PROTEUS VULGARIS GROUP] ENTEROBACTER CLOACAE COMPLEX ENTEROCOCCUS FAECALIS ALCALIGENES ODORANS STAPHYLOCOCCUS SIMULANS STAPHYLOCOCCUS SIMULANS PROTEUS VULGARIS GROUP ALCALIGENES FAECALIS Unless otherwise specified, Testing Performed by: [address] [address] For Inquires, the Physician may contact the Microbiology department at [phone] Objective Assessment IMPRESSION: 1. Infected right great toe.s/p amputation 2. Acute severe hyperkalemia. 3. Status post amputations of the right second and third toes, 01/29/2021. Superficial swab cultures were positive for Dorita parapsilosis and Staphylococcus epidermidis, was discharged on amoxicillin. 4. End-stage renal disease, on hemodialysis. Missed hemodialysis session. 5. History of diabetes mellitus. 6. History of peripheral vascular disease. 7. Atrial fibrillation, on Coumadin. Plan Plan of Care Culture is positive with Enterobacter and Proteus is also gram-positive cocci Vanco and cefepime through dialysis susceptibility pending Local wound care as directed LIZZETH ANDRADE MD Mar 06, 2021 09:55
[2021-03-06] MEDS: oxyCODONE/APAP 5/325 1 TAB TABLET PO PRN (10:14)
--- NOTE | 2021-03-06 10:18 | PDOC3 ---
Discharge Summary Visit Information Date of Admission: Mar 01, 2021 Date of Discharge: Mar 06, 2021 Final Diagnosis Right first toe gangrene with underlying abscess. Acute severe hyperkalemia Anemia of chronic kidney disease Acute electrolyte derangementhyperchloremia, hyperkalemia due to missed hemodialysis Metabolic acidosis Hyperglycemiauncontrolled History of diabetes mellitus type 2 Severe protein malnutrition History of peripheral vascular disease with amputation of the right lower extremity digits constipation, opioid and pain related Problems Medical Problems: (1) Toe infection Status: Acute Brief Hospital Course Allergies Allergies Coded Allergies Type Severity Reaction Last Updated Verified prednisone Allergy Intermediate 01/29/21 Yes Vital Signs Vital Signs Date Time Temp Pulse Resp B/P (MAP) Pulse Ox O2 Delivery O2 Flow Rate FiO2 03/06/21 08:30 Room Air 03/06/21 07:00 98.6 70 17 148/73 (98) 100 98.6 Lab Results Laboratory Tests Test 03/04/21 11:43 03/04/21 17:34 03/04/21 18:48 03/05/21 04:20 Glucose (Fingerstick) 185 mg/dL (70-99) 230 mg/dL (70-99) 219 mg/dL (70-99) Sodium Level 141 mmol/L (136-145) Potassium Level 5.8 mmol/L (3.5-5.1) Chloride Level 107 mmol/L (98-107) Carbon Dioxide Level 24 mmol/L (21-32) Anion Gap 10 (6-14) Blood Urea Nitrogen 45 mg/dL (8-26) Creatinine 10.1 mg/dL (0.7-1.3) Estimated GFR (Cockcroft-Gault) 6.3 Glucose Level 208 mg/dL (70-99) Calcium Level 8.4 mg/dL (8.5-10.1) Test 03/05/21 07:02 03/05/21 17:37 03/05/21 20:10 03/06/21 07:21 Glucose (Fingerstick) 185 mg/dL (70-99) 290 mg/dL (70-99) 202 mg/dL (70-99) 185 mg/dL (70-99) Laboratory Tests Test 03/05/21 17:37 03/05/21 20:10 03/06/21 07:21 Glucose (Fingerstick) 290 mg/dL (70-99) 202 mg/dL (70-99) 185 mg/dL (70-99) Brief Hospital Course Mr. Savage is a 65 old male with history of end-stage renal disease, on dialysis, diabetes, who had prior amputations for PVD admit with wound and abcess to right foot, taken to OR Dr. Garcia on 03/03, wound vac placed, he cannot walk after ID Consult followed, cx results below, DC to skilled on vanc and cefepime,. he has refused therapy, but wants to [facility] for rehab, and pain control of his foot Assessment Assessment Culture is positive with Enterobacter and Proteus is also gram-positive cocci we will do Vanco and cefepime through dialysis Discharge Information Condition at Discharge: Improved Follow Up: Weeks Disposition/Orders: D/C to Home w/ HH Scheduled Amlodipine Besylate (Amlodipine Besylate) 10 Mg Tablet, 10 MG PO DAILY for HIGH BLOOD PRESSURE MDD 1, #60 Prescribed by: ABDIAS GREWAL on 03/03/191125 Last Action: Reviewed on 03/01/212329 by EDU SABILLON Docusate Sodium (Dok) 100 Mg Capsule, 100 MG PO DAILY for prevent constipation, #30 Prescribed by: ERVIN BOOGIE on 03/06/21 1029 Gabapentin (Gabapentin) 300 Mg Capsule, 300 MG PO TID for neuopathy MDD 1, #90 Prescribed by: ABDIAS GREWAL on 03/03/191125 Last Action: Reviewed on 03/01/212329 by EDU SABILLON Insulin Glargine,Hum.rec.anlog (Lantus Solostar) 100 Unit/1 Ml Insuln.pen, 22 UNIT SQ QHS for blood sugar control , #15 Ref 3 (Reported) Entered as Reported by: DARCY CALDWELL RN on 10/02/19625 Last Action: Edited on 03/01/212329 by EDU SABILLON Insulin Lispro (Humalog) 100 Unit/1 Ml Cartridge, 12 UNIT SQ TIDWMEALS for blood sugar control , (Reported) Entered as Reported by: DARCY CALDWELL RN on 10/02/19625 Last Action: Edited on 03/01/212329 by EDU SABILLON Lactobacillus Rhamnosus Gg (Culturelle) 1 Each Cap.sprink, 1 CAP PO BID for gut health on antibiotics, #30 Prescribed by: ERVIN BOOGIE on 03/06/21 1029 Vancomycin/0.9 % Sod Chloride (Vanco 500 mg/100 ml-0.9% NaCl) 500 Mg/100 Ml Froz.piggy, 500 MG IV QODAY for infection for 10 Days at dialysis, [facility] Prescribed by: ERVIN BOOGIE on 03/06/21 1122 Warfarin Sodium (Warfarin Sodium) 5 Mg Tablet, 1 TAB PO QMTUWTHSA for blood thinner, #30 (Reported) Entered as Reported by: TABITHA CLEMONS on 11/20/182142 Last Action: Reviewed on 03/01/212329 by EDU SABILLON Warfarin Sodium (Warfarin Sodium) 5 Mg Tablet, 2 TAB PO QFRSUN for history DVT, #30 (Reported) Entered as Reported by: IVY PEREZ on 03/01/19 1416 Last Action: Reviewed on 03/01/212329 by EDU SABILLON [Cefepime Hcl] 1 GM VIAL, 3 GM IVP QODAY to be dosed at dialysis [facility] Prescribed by: ERVIN BOOGIE on 03/06/21 1122 Scheduled PRN Acetaminophen (Acetaminophen) 325 Mg Tablet, 650 MG PO DAILY PRN for PAIN, #30 Prescribed by: ERVIN BOOGIE on 03/06/21 1029 Hydrocodone/Acetaminophen (Hydrocodone-Acetamin 5-325 mg) 1 Each Tablet, 1 EACH PO Q4HRS PRN for PAIN for 5 Days, #20 Prescribed by: LEBRON DOVER on 01/29/21 0947 Last Action: Reviewed on 03/02/21 0123 by EDU SABILLON Oxycodone/Apap 5-325 (Percocet 5-325 Mg Tablet ) 1 Each Tablet, 1 TAB PO PRN Q4HRS PRN for PAIN, #30 Prescribed by: ERVIN BOOGIE on 03/06/21 1029 Sennosides (Senna Lax) 8.6 Mg Tablet, 17.2 MG PO PRN BID PRN for CONSTIPATION, #30 Prescribed by: ERVIN BOOGIE on 03/06/21 1029 [Vancomycin Per Pharmacy] 1 EACH EACH, 1 EACH MC PRN DAILY PRN for SEE COMMENTS at dialysis Prescribed by: ERVIN BOOGIE on 03/06/21 1020 Patient Instructions Patient Instructions time > 30 min face to face Justicifation of Admission Dx: Justifications for Admission: Justification of Admission Dx: Yes Chronic Renal Failure: Electrolyte Abnormality ERVNI BOOGIE MD Mar 06, 2021 10:18
[2021-03-06] MEDS ORDERED: CEFEPIME HCL IVP ×2 (10:20→11:22)
[2021-03-06] MEDS ORDERED: Vancomycin Per Pharmacy MC (10:20)
[2021-03-06] MEDS ORDERED: DOCU-153 PO (10:29)
[2021-03-06] MEDS ORDERED: ACET325T21 PO (10:29)
[2021-03-06] MEDS ORDERED: LACT1CAP19 PO (10:29)
[2021-03-06] MEDS ORDERED: OXYC1TAB15 PO (10:29)
[2021-03-06] MEDS ORDERED: SENN-87 PO (10:29)
--- NOTE | 2021-03-06 10:30 | SNU/HH DC ---
DISCHARGE ORDERS DISCHARGE INFORMATION: DISCHARGE DATE: Mar 06, 2021 FINAL DIAGNOSIS ESRD cellulitis toe infection right foot wound with wound vac Problems Medical Problems: (1) Toe infection Status: Acute CONDITION ON DISCHARGE: Stable CODE STATUS: Code Status: Full RESIDENTIAL: SNF STAY <30 DAYS: Yes POST DISCHARGE ORDERS: ACTIVITY ORDERS: Activity as tolerated WEIGHT BEARING STATUS: As tolerated, Partial weight bearing (with wound vac), Other, see below BATHING ORDERS: Shower-keep dressing dry DIET AFTER DISCHARGE: Renal (diabetic) WOUND/INCISION CARE: Keep wound/cast CDI, Keep wound elevated FOLLOW-UP: PHYSICIAN FOLLOW-UP: Dr. Garcia 1-2 weeks ADDITIONAL FOLLOW-UP: ID if needed, TREATMENT/EQUIPMENT ORDERS: ADAPTIVE EQUIPMENT NEEDED: Front wheeled walker Physical Therapy For: Evalulation/Treatment Occupational Therapy For: Evaluation/Treatment DISCHARGE MEDICATIONS: Home Meds Active Scripts Vancomycin/0.9 % Sod Chloride (Vanco 500 mg/100 ml-0.9% NaCl) 500 Mg/100 Ml Froz.piggy, 500 MG IV QODAY for infection for 10 Days, EACH at dialysis, MWF Prov:ERVIN BOOGIE MD 03/06/21 [CEFEPIME HCL IV Push] 1 GM VIAL No Conflict Check, 3 GM IVP QODAY, EACH to be dosed at dialysis MWF Prov:ERVIN BOOGIE MD 03/06/21 Lactobacillus Rhamnosus Gg (CULTURELLE) 1 Each Cap.sprink, 1 CAP PO BID for gut health on antibiotics, #30 CAP Prov:ERVIN BOOGIE MD 03/06/21 Acetaminophen (ACETAMINOPHEN) 325 Mg Tablet, 650 MG PO DAILY PRN for PAIN, #30 TAB Prov:ERVIN BOOGIE MD 03/06/21 Oxycodone/Apap 5-325 (PERCOCET 5-325 MG TABLET ) 1 Each Tablet, 1 TAB PO PRN Q4HRS PRN for PAIN, #30 TAB Prov:ERVIN BOOGIE MD 03/06/21 Sennosides (SENNA LAX) 8.6 Mg Tablet, 17.2 MG PO PRN BID PRN for CONSTIPATION, #30 TAB Prov:ERVIN BOOGIE MD 03/06/21 Docusate Sodium (DOK) 100 Mg Capsule, 100 MG PO DAILY for prevent constipation, #30 CAP Prov:ERVIN BOOGIE MD 03/06/21 [Vancomycin Per Pharmacy] 1 EACH EACH No Conflict Check, 1 EACH MC PRN DAILY PRN for SEE COMMENTS at dialysis Prov:ERVIN BOOGIE MD 03/06/21 Hydrocodone/Acetaminophen (Hydrocodone-Acetamin 5-325 mg) 1 Each Tablet, 1 EACH PO Q4HRS PRN for PAIN for 5 Days, #20 TAB Prov:LEBRON DOVER SEWING MACHINE TESTER 01/29/21 Gabapentin (GABAPENTIN) 300 Mg Capsule, 300 MG PO TID for neuopathy MDD 1, #90 CAP Prov:ABDIAS GREWAL MD 03/03/19 Amlodipine Besylate (AMLODIPINE BESYLATE) 10 Mg Tablet, 10 MG PO DAILY for HIGH BLOOD PRESSURE MDD 1, #60 TAB Prov:ABDIAS GREWAL MD 03/03/19 Reported Medications Insulin Lispro (HUMALOG) 100 Unit/1 Ml Cartridge, 12 UNIT SQ TIDWMEALS for blood sugar control , EACH 10/02/19 Insulin Glargine,Hum.rec.anlog (LANTUS SOLOSTAR) 100 Unit/1 Ml Insuln.pen, 22 UNIT SQ QHS for blood sugar control , #15 ML 3 Refills 10/02/19 Warfarin Sodium (WARFARIN SODIUM) 5 Mg Tablet, 2 TAB PO QFRSUN for history DVT, #30 TAB 03/01/19 Warfarin Sodium (WARFARIN SODIUM) 5 Mg Tablet, 1 TAB PO QMTUWTHSA for blood thinner, #30 TAB 11/20/18 ERVIN BOOGIE MD Mar 06, 2021 10:30
[2021-03-06 11:00] VITALS: BP 157/73
--- NOTE | 2021-03-06 11:04 | NUR ---
Pt verbally aggressive with this RN on multiple occasions. Pt currently stating "I don't know why she's in my room." Dr. Reyes and Yolette, case planner also at bedside in attempts to gain information for discharge planning. This RN left room for remainder of conversation. Rachel, nurse product engineering manager notified of situation.
[2021-03-06] MEDS ORDERED: VANC500F2 IV (11:22)
--- NOTE | 2021-03-06 11:45 | PDOC ---
DATE OF SERVICE DATE: 03/06/21 TIME: 11:42 SUBJECTIVE ROS Stable , OBJECTIVE Vital Signs Vital Signs Date Time Temp Pulse Resp B/P (MAP) Pulse Ox O2 Delivery O2 Flow Rate FiO2 03/06/21 08:30 Room Air 03/06/21 07:00 98.6 70 17 148/73 (98) 100 98.6 I & 0 Intake and Output 03/06/21 07:00 Intake Total 100 ml Output Total 250 ml Balance -150 ml Intake Oral 0 ml IV Total 100 ml Output Urine Total 250 ml # Voids 1 # Bowel Movements 1 PHYSICAL EXAM Physical Exam GENERAL: no acute distress. HEENT: OM moist NECK: Supple. LUNGS: Clear bilaterally. No accessory muscle use. HEART: S1, S2. No murmurs. ABDOMEN: Soft, nontender, nondistended. Bowel sounds present. EXTREMITIES: post surgical dressing DERMATOLOGIC: Warm, dry skin. No generalized rash. NEUROLOGIC: Alert, oriented x 3, grossly nonfocal. PSYCHIATRIC: Cooperative, calm. ACCESS: Right upper arm AV fistula DIAGNOSIS/ASSESSMENT Assessment & Plan ESRD On HD MWF , clinically stable, currently no indication today Infected right great toe/Right first toe gangrene with underlying abscess s/p amputation Right second and third toe previous amputation with underlying abscess and necrotic tissue s/p excisional debridement, Status post amputations of the right second and third toes, 01/29/2021. Culture positive for Enterobacter and Proteus and gram-positive cocci. Currently on Vanco and cefepime through dialysis per ID COPD - stable Chronic diarrhea - stable currently Ulcerative colitis - s/p colon resection Diabetes mellitus Peripheral neuropathy Hypertension - cont amlodipine History of DVT, on warfarin therapy History of colorectal cancer - s/p resection H/o hepatitis C - in SVR Anemia Noted decreasing Hgb 11.5 in November . fu per primary, MIKEY ordered COMMENT/RELEVANT DATA Meds Current Medications Medications (Trade) Dose Ordered Sig/Raymon Start Time Stop Time Status Last Admin Dose Admin Acetaminophen (Tylenol) 650 mg PRN Q4HRS PRN 03/01/21 20:00 03/02/21 19:45 650 MG Albumin Human 200 ml @ 200 mls/hr 1X PRN PRN 03/03/21 10:00 03/03/21 15:59 DC Cefazolin Sodium 1 gm/Sodium Chloride 250 ml @ 250 mls/hr 1X ONCE 03/03/21 08:00 03/03/21 08:59 DC 03/03/21 08:20 Cefepime HCl (Maxipime) 1 gm Q24H 03/05/21 12:00 03/05/21 12:53 1 GM Darbepoetin Amador (ARANESP for DIALYSIS P[facility]) 60 mcg WEEKLYHS 03/03/21 21:00 03/03/21 20:29 60 MCG Dextrose (Dextrose 50%-Water Syringe) 12.5 gm PRN Q15MIN PRN 03/01/21 20:00 Diphenhydramine HCl (Benadryl) 25 mg 1X PRN PRN 03/05/21 09:00 03/06/21 08:59 DC Docusate Sodium (Colace) 100 mg DAILY 03/05/21 14:00 03/05/21 14:27 100 MG Fentanyl Citrate (Fentanyl 2ml Vial) 100 mcg STK-MED ONCE 03/03/21 09:48 03/03/21 09:49 DC Heparin Sodium (Porcine) (Heparin Sodium) 5,000 unit Q12HR 03/01/21 21:00 03/03/21 20:35 5,000 UNIT Hydromorphone HCl (Dilaudid) 0.5 mg PRN Q10MIN PRN 03/03/21 07:00 03/04/21 06:59 DC Info (PHARMACY MONITORING -- do not chart) 1 each PRN DAILY PRN 03/05/21 07:30 Insulin Human Lispro (HumaLOG) 20 units 1X ONCE 03/02/21 13:00 03/02/21 13:01 DC 03/02/21 13:20 13 UNITS Lactobacillus Rhamnosus (Culturelle) 1 cap BID 03/05/21 21:00 03/05/21 20:46 1 CAP Lidocaine HCl (Lidocaine Pf 2% Vial) 5 ml STK-MED ONCE 03/03/21 07:09 03/03/21 07:10 DC Lidocaine HCl (Xylocaine-Mpf 1% 2ml Vial) 0.25 ml PRN DAILY PRN 03/05/21 08:20 03/05/21 08:35 0.25 ML Micafungin Sodium 100 mg/Dextrose 100 ml @ 100 mls/hr Q24H 03/02/21 12:00 03/05/21 11:11 DC 03/04/21 12:24 100 MLS/HR Morphine Sulfate (Morphine Sulfate) 2 mg PRN Q2HR PRN 03/04/21 08:15 03/05/21 20:48 2 MG Ondansetron HCl (Zofran) 4 mg STK-MED ONCE 03/03/21 08:38 03/03/21 08:38 DC Oxycodone/ Acetaminophen (Percocet 5/325) 1 tab PRN Q4HRS PRN 03/01/21 20:00 03/06/21 10:14 1 TAB Phenylephrine HCl (PHENYLEPHRINE in 0.9% NACL PF) 1 mg STK-MED ONCE 03/03/21 08:27 03/03/21 08:27 DC Piperacillin Sod/ Tazobactam Sod (Zosyn Per Pharmacy) 1 each PRN DAILY PRN 03/02/21 11:00 Piperacillin Sod/ Tazobactam Sod 2.25 gm/Sodium Chloride 50 ml @ 100 mls/hr Q8HRS 03/02/21 12:00 03/05/21 11:11 DC 03/05/21 06:10 100 MLS/HR Piperacillin Sod/ Tazobactam Sod 4.5 gm/Sodium Chloride 100 ml @ 200 mls/hr 1X ONCE 03/01/21 15:30 03/01/21 15:59 DC 03/01/21 16:25 200 MLS/HR Polyethylene Glycol (miraLAX PACKET) 17 gm 1X ONCE 03/05/21 14:00 03/05/21 14:01 DC 03/05/21 14:27 17 GM Prochlorperazine Edisylate (Compazine) 5 mg PACU PRN PRN 03/03/21 07:00 03/04/21 06:59 DC Propofol (Diprivan) 200 mg STK-MED ONCE 03/03/21 07:09 03/03/21 07:10 DC Ringer's Solution 1,000 ml @ 30 mls/hr Q24H 03/03/21 07:00 03/03/21 18:59 DC Sennosides (Senna) 17.2 mg PRN BID PRN 03/01/21 20:00 Sevoflurane (Ultane) 60 ml STK-MED ONCE 03/03/21 08:27 03/03/21 08:28 DC Sodium Chloride 1,000 ml @ 400 mls/hr Q2H30M PRN 03/05/21 07:30 03/05/21 19:29 DC Vancomycin HCl (Vanco Per Pharmacy) 1 each PRN DAILY PRN 03/02/21 11:00 03/05/21 13:26 1 EACH Vancomycin HCl (Vancomycin Random Level) 1 each 1X ONCE 03/03/21 06:00 03/03/21 06:01 DC Vancomycin HCl 500 mg/Sodium Chloride 100 ml @ 100 mls/hr 1X ONCE 03/02/21 16:00 03/02/21 16:59 DC 03/02/21 16:37 100 MLS/HR Vancomycin HCl 2 gm/Sodium Chloride 500 ml @ 250 mls/hr 1X ONCE 03/01/21 16:00 03/01/21 17:59 DC 03/01/21 17:00 250 MLS/HR Lab Laboratory Tests Test 03/05/21 17:37 03/05/21 20:10 03/06/21 07:21 03/06/21 11:21 Glucose (Fingerstick) 290 mg/dL (70-99) 202 mg/dL (70-99) 185 mg/dL (70-99) 174 mg/dL (70-99) Results All relevant outside records, renal labs, imaging studies, telemetry/EKG's were reviewed. Justicifation of Admission Dx: Justifications for Admission: Justification of Admission Dx: Yes Chronic Renal Failure: Electrolyte Abnormality NNAMDI TESFAYE MD Mar 06, 2021 11:45
[2021-03-06] MEDS: CEFEPIME HCL IV Push 1 GM VIAL. IVP SCH (11:50)
--- NOTE | 2021-03-06 11:51 | NUR ---
Pt refusing all medication administration and interaction with this RN.
--- NOTE | 2021-03-06 13:25 | NUR ---
This RN gave report to WILLIAM Pop of [facility] at ext. [phone].
[2021-03-06] MEDS: VANCOMYCIN PER PHARMACY MC PRN (14:17)
--- NOTE | 2021-03-06 15:16 | NUR ---
Pt left unit at approx 1515 by wheelchair via transportation. Mother at bedside. Pt's IV removed without complication. Discharge paperwork sent with pt at time of discharge. Belongings returned to pt.
== END 2021-03-06 15:23 | DRG 255 ==
LOC: ER 14:33 → 6 SOUTH 18:12
PROVIDERS: ADMIT Internal Medicine; ATTEND Internal Medicine
PROC: 0QBN0ZZ Excision of Right Metatarsal, Open Approach (ICD-10-PCS; 2021-03-03)
PROC: 3E1M39Z Irrigation of Peritoneal Cavity using Dialysate, Percutaneous Approach (ICD-10-PCS; 2021-03-03)
PROC: 0Y6P0Z1 Detachment at Right 1st Toe, High, Open Approach (ICD-10-PCS; principal; 2021-03-03 08:00)
DX: E11.52 Type 2 diabetes mellitus with diabetic peripheral angiopathy with gangrene (principal); E43 Unspecified severe protein-calorie malnutrition; N18.6 End stage renal disease; I96 Gangrene, not elsewhere classified; E87.2 Acidosis; I12.0 Hypertensive chronic kidney disease with stage 5 chronic kidney disease or end stage renal disease; Z68.24 Body mass index [BMI] 24.0-24.9, adult; M19.90 Unspecified osteoarthritis, unspecified site; F17.210 Nicotine dependence, cigarettes, uncomplicated; E87.5 Hyperkalemia; D63.1 Anemia in chronic kidney disease; L08.9 Local infection of the skin and subcutaneous tissue, unspecified; E87.8 Other disorders of electrolyte and fluid balance, not elsewhere classified; E11.65 Type 2 diabetes mellitus with hyperglycemia; B95.8 Unspecified staphylococcus as the cause of diseases classified elsewhere; E11.40 Type 2 diabetes mellitus with diabetic neuropathy, unspecified; I48.91 Unspecified atrial fibrillation; E11.22 Type 2 diabetes mellitus with diabetic chronic kidney disease; F12.90 Cannabis use, unspecified, uncomplicated; Z20.822 Contact with and (suspected) exposure to COVID-19; Z99.2 Dependence on renal dialysis; Z86.718 Personal history of other venous thrombosis and embolism; Z85.038 Personal history of other malignant neoplasm of large intestine; Z88.8 Allergy status to other drugs, medicaments and biological substances; Z90.49 Acquired absence of other specified parts of digestive tract; Z89.421 Acquired absence of other right toe(s); Z79.4 Long term (current) use of insulin; Z79.01 Long term (current) use of anticoagulants; Z91.15 Patient's noncompliance with renal dialysis; Z82.5 Family history of asthma and other chronic lower respiratory diseases; Z82.49 Family history of ischemic heart disease and other diseases of the circulatory system
CPT/HCPCS: 36415; 73630; 80048; 80053; 80202; 82962; 83605; 83735; 84100; 84145; 84484; 85025; 86706; 87040; 87071; 87075; 87077; 87340; 87426; 88305; 88311; 93005; 93971; 96365; 96367; 96375; 96376; A4930; A6253; A6402; A6443; A6449; J0690; J0692; J0882; J1200; J1644; J1815; J2248; J2270; J2370; J2405; J2543; J2704; J3010; J3370; J3490; J7030; J7040; J7050; J7060; 97530-GP; 99285-25; G0378; Q0163

== ENCOUNTER 2021-04-23 19:22 | Emergency (ER) | payer MEDICARE ==
[2021-03-28 15:12] VITALS: BP 174/88
[~2021-04-23 19:22] MED LIST changes: +ACET325T21 PO; +CALC200T3 PO; +CEFEPIME HCL IVP; +DOCU-153 PO; +LACT1CAP19 PO; +OXYC1TAB15 PO; +SENN-87 PO; +VANC500F2 IV; +Vancomycin Per Pharmacy MC; +WARF7.5T45 PO
== END 2021-04-23 20:00 | disposition left against medical advice (07) ==
LOC: ER 19:22
DX: M79.609 Pain in unspecified limb (principal); Z53.21 Procedure and treatment not carried out due to patient leaving prior to being seen by health care provider

== ENCOUNTER 2021-04-24 00:30 | Inpatient (IN) | payer MEDICARE ==
[2021-04-24] VITALS (7 sets, daily range): BP systolic 100–130; BP diastolic 60–90
[~2021-04-24] VITALS: Ht 190.5 cm; Wt 83.9 kg
[~2021-04-24 00:30] MED LIST changes: +DOCU-148 PO; -DOCU-153 PO; -DOXY100C2 PO; +DOXY100C3 PO
[2021-04-24] MEDS ORDERED: ACETAMINOPHEN 325 MG TABLET. PO PRN ×2 (02:00→14:00)
[2021-04-24] MEDS ORDERED: DEXTROSE 50% 25 GM / 50ML DISP.SYRIN. IV PRN ×2 (02:00→14:00)
[2021-04-24] MEDS: MORPHINE SULFATE 2 MG/ML INJ. IVP PRN ×5 (02:20→20:13)
--- NOTE | 2021-04-24 05:00 | NUR ---
The patient, UMER VANCE, 66 y/o, M admitted by MIRELLA DONIS MD, was given written information regarding hospital policies, unit procedures and contact persons. Valuables were checked and, upper dentures, cell phone, pants, shirt, wallet and glasses.
[2021-04-24 07:03] LABS: BASO % 1 % (0-3); EOS # 0.3 x10^3/uL (0.0-0.7); EOS % 5 % (0-3); HEMATOCRIT 31.4 % (39.0-53.0); HEMOGLOBIN 10.1 g/dL (13.0-17.5); LYMPH # 0.9 x10^3/uL (1.0-4.8); LYMPH % 18 % (24-48); MEAN CORPUSCULAR HEMOGLOBIN 27 pg (25-35); MEAN CORPUSCULAR HGB CONC 32 g/dL (31-37); MEAN CORPUSCULAR VOLUME 85 fL (79-100); MONO # 0.9 x10^3/uL (0.0-1.1); MONO % 18 % (0-9); NEUT # 2.9 x10^3/uL (1.8-7.7); NEUT % 58 % (31-73); PLATELET COUNT 187 x10^3/uL (140-400); RED BLOOD COUNT 3.69 x10^6/uL (4.30-5.70); WHITE BLOOD COUNT 5.1 x10^3/uL (4.0-11.0)
[2021-04-24 07:32] LABS: ALBUMIN 2.7 g/dL (3.4-5.0); ALBUMIN/GLOBULIN RATIO 0.5 (1.0-1.7); CALCIUM 9.6 mg/dL (8.5-10.1); CREATININE 6.5 mg/dL (0.7-1.3); GFR 10.4; POTASSIUM 4.7 mmol/L (3.5-5.1); TOTAL BILIRUBIN 0.2 mg/dL (0.2-1.0); TOTAL PROTEIN 7.8 g/dL (6.4-8.2)
--- NOTE | 2021-04-24 07:54 | PDOC1 ---
History and Physical Date of Service: DOS: DATE: 04/24/21 TIME: 07:52 Chief Complaint: Chief Complain: Nonhealing wound of the right foot History of Present Illness: HPI: Patient is a 66-year-old male who comes in because of a nonhealing right foot wound. Patient had amputation of his right foot digits in February 2021. He states that he has been through several nursing facilities and feels that he gets dumped somewhere else because he does not meet criteria for the nursing facility. He was actually supposed to be on vancomycin and cefepime for outpatient IV infusion and he was sent home with home health with a wound VAC. He states that he could not wear the wound VAC because it was too cumbersome for him to move around so he has not been using it for the last 3 weeks. Patient denies any fevers, chest pain, abdominal pain, dysuria, diarrhea or bloody stools. Does not report any active bleeding from the wound or extreme pain. He does not notice any foul smelling odor seeping from his surgical site. Past Medical/Surgical History: PMH/PSH: Past medical history: Ulcerative colitis with bowel resection and colostomy and takedown, ESRD on HD Past surgical history: Right foot amputation, bowel resection and colostomy and takedown afterwards. Allergies: Allergies: Coded Allergies: prednisone (Verified Allergy, Intermediate, 01/29/21) PT STATES LEG BECAME SWOLLEN FROM TAKING AND GOT A BLOOD CLOT Family History: Family History: Reviewed with no relevant findings Social History: Social History: History of cocaine and marijuana use. Current Medications: Current Medications Current Medications Acetaminophen (Tylenol) 650 mg PRN Q4HRS PRN PO TEMP OVER 100.4F OR MILD PAIN; Start 04/24/21 at 02:00 Insulin Glargine (Lantus Syringe) 22 unit QHS SQ ; Start 04/24/21 at 21:00 Insulin Human Lispro (HumaLOG) 0-5 UNITS TIDWMEALS SQ ; Start 04/24/21 at 08:00 Dextrose (Dextrose 50%-Water Syringe) 12.5 gm PRN Q15MIN PRN IV SEE COMMENTS; Start 04/24/21 at 02:00 Insulin Human Lispro (HumaLOG) 12 units TIDWMEALS SQ ; Start 04/24/21 at 08:00 Morphine Sulfate (Morphine Sulfate) 2 mg PRN Q2HR PRN IVP SEVERE PAIN 7-10 Last administered on 04/24/21at 07:23; Start 04/24/21 at 02:00 Active Scripts Active [Cefepime Hcl] 1 GM Vial 3 Gm IVP QODAY to be dosed at dialysis MWF Culturelle (Lactobacillus Rhamnosus Gg) 1 Each Cap.sprink 1 Cap PO BID Acetaminophen 325 Mg Tablet 650 Mg PO DAILY PRN Percocet 5-325 Mg Tablet (Oxycodone/Acetaminophen) 1 Each Tablet 1 Tab PO PRN Q4HRS PRN Senna Lax (Sennosides) 8.6 Mg Tablet 17.2 Mg PO PRN BID PRN Dok (Docusate Sodium) 100 Mg Capsule 100 Mg PO DAILY [Vancomycin Per Pharmacy] 1 EACH Each 1 Each MC PRN DAILY PRN at dialysis Hydrocodone-Acetamin 5-325 mg (Hydrocodone/Acetaminophen) 1 Each Tablet 1 Each PO Q4HRS PRN 5 Days Gabapentin 300 Mg Capsule 300 Mg PO TID MDD 1 Amlodipine Besylate 10 Mg Tablet 10 Mg PO DAILY MDD 1 Reported Tums (Calcium Carbonate) 200 Mg Tab.chew 600 Mg PO HS Furosemide 80 Mg Tablet 1 Tab PO DAILY Nephro-Rakesh Tablet (Folic Acid/Vitamin B Comp W-C) 0.8 Mg Tablet 1 Tab PO DAILY Warfarin Sodium 7.5 Mg Tablet 7.5 Mg PO QSU Lantus Solostar (Insulin Glargine,Hum.rec.anlog) 100 Unit/1 Ml Insuln.pen 22 Unit SQ QHS Warfarin Sodium 5 Mg Tablet 1 Tab PO QMTUWTHSA ROS: Review of Systems Review of System REVIEW OF SYSTEMS: GENERAL: Denies weakness SKIN: No bruising, hair changes or rashes. EYES: No blurred, double or loss of vision. NOSE AND THROAT: No history of nosebleeds, hoarseness or sore throat. HEART: No history of palpitations, chest pain or shortness of breath on exertion. LUNGS: Denies cough, hemoptysis, wheezing or shortness of breath. GASTROINTESTINAL: Denies changes in appetite, nausea, vomiting, diarrhea or constipation. GENITOURINARY: No history of frequency, urgency, hesitancy or nocturia. NEUROLOGIC: Denies history of numbness, tingling, or tremor. PSYCHIATRIC: No history of panic, anxiety or depression. ENDOCRINE: No history of heat or cold intolerance, polyuria or polydipsia. EXTREMITIES: Positive for right foot pain Physical Exam: Vital Signs: Vital Signs Date Time Temp Pulse Resp B/P (MAP) Pulse Ox O2 Delivery O2 Flow Rate FiO2 04/24/21 07:23 Room Air 04/24/21 03:00 99.1 74 18 129/69 (89) 94 99.1 Physcial Exam: General: Well developed, well nourished, no acute distress, well appearing HEENT: Pupils equally round and reactive to light, EOMI, no discharge, normal conjunctiva Neck: Supple, no nuchal rigidity, no JVD, trachea midline, no tenderness Cardiac: RRR, no murmurs, no gallops, no rubs Chest/Lungs: CTAB, no wheeze, no rhonchi, no crackles Abdomen: soft, non-distended, no guarding, no peritoneal signs, non-tender Back: No tenderness Extremities: no edema, pulses intact, non-tender,capillary refill <3 sec bilateral upper and lower extremities, right foot open wound with poor granulation tissue. Fibrinous exudates seen. Neuro: Alert and oriented x 4, no focal deficits, normal speech Labs: Labs: Laboratory Tests Test 04/24/21 06:40 04/24/21 07:41 White Blood Count 5.1 x10^3/uL (4.0-11.0) Red Blood Count 3.69 x10^6/uL (4.30-5.70) Hemoglobin 10.1 g/dL (13.0-17.5) Hematocrit 31.4 % (39.0-53.0) Mean Corpuscular Volume 85 fL (79-100) Mean Corpuscular Hemoglobin 27 pg (25-35) Mean Corpuscular Hemoglobin Concent 32 g/dL (31-37) Red Cell Distribution Width 16.0 % (11.5-14.5) Platelet Count 187 x10^3/uL (140-400) Neutrophils (%) (Auto) 58 % (31-73) Lymphocytes (%) (Auto) 18 % (24-48) Monocytes (%) (Auto) 18 % (0-9) Eosinophils (%) (Auto) 5 % (0-3) Basophils (%) (Auto) 1 % (0-3) Neutrophils # (Auto) 2.9 x10^3/uL (1.8-7.7) Lymphocytes # (Auto) 0.9 x10^3/uL (1.0-4.8) Monocytes # (Auto) 0.9 x10^3/uL (0.0-1.1) Eosinophils # (Auto) 0.3 x10^3/uL (0.0-0.7) Basophils # (Auto) 0.0 x10^3/uL (0.0-0.2) Sodium Level 137 mmol/L (136-145) Potassium Level 4.7 mmol/L (3.5-5.1) Chloride Level 97 mmol/L (98-107) Carbon Dioxide Level 32 mmol/L (21-32) Anion Gap 8 (6-14) Blood Urea Nitrogen 22 mg/dL (8-26) Creatinine 6.5 mg/dL (0.7-1.3) Estimated GFR (Cockcroft-Gault) 10.4 BUN/Creatinine Ratio 3 (6-20) Glucose Level 188 mg/dL (70-99) Calcium Level 9.6 mg/dL (8.5-10.1) Total Bilirubin 0.2 mg/dL (0.2-1.0) Aspartate Amino Transf (AST/SGOT) 18 U/L (15-37) Alanine Aminotransferase (ALT/SGPT) 15 U/L (16-63) Alkaline Phosphatase 60 U/L (46-116) Total Protein 7.8 g/dL (6.4-8.2) Albumin 2.7 g/dL (3.4-5.0) Albumin/Globulin Ratio 0.5 (1.0-1.7) Glucose (Fingerstick) 181 mg/dL (70-99) Laboratory Tests Test 04/24/21 06:40 04/24/21 07:41 White Blood Count 5.1 x10^3/uL (4.0-11.0) Red Blood Count 3.69 x10^6/uL (4.30-5.70) Hemoglobin 10.1 g/dL (13.0-17.5) Hematocrit 31.4 % (39.0-53.0) Mean Corpuscular Volume 85 fL (79-100) Mean Corpuscular Hemoglobin 27 pg (25-35) Mean Corpuscular Hemoglobin Concent 32 g/dL (31-37) Red Cell Distribution Width 16.0 % (11.5-14.5) Platelet Count 187 x10^3/uL (140-400) Neutrophils (%) (Auto) 58 % (31-73) Lymphocytes (%) (Auto) 18 % (24-48) Monocytes (%) (Auto) 18 % (0-9) Eosinophils (%) (Auto) 5 % (0-3) Basophils (%) (Auto) 1 % (0-3) Neutrophils # (Auto) 2.9 x10^3/uL (1.8-7.7) Lymphocytes # (Auto) 0.9 x10^3/uL (1.0-4.8) Monocytes # (Auto) 0.9 x10^3/uL (0.0-1.1) Eosinophils # (Auto) 0.3 x10^3/uL (0.0-0.7) Basophils # (Auto) 0.0 x10^3/uL (0.0-0.2) Sodium Level 137 mmol/L (136-145) Potassium Level 4.7 mmol/L (3.5-5.1) Chloride Level 97 mmol/L (98-107) Carbon Dioxide Level 32 mmol/L (21-32) Anion Gap 8 (6-14) Blood Urea Nitrogen 22 mg/dL (8-26) Creatinine 6.5 mg/dL (0.7-1.3) Estimated GFR (Cockcroft-Gault) 10.4 BUN/Creatinine Ratio 3 (6-20) Glucose Level 188 mg/dL (70-99) Calcium Level 9.6 mg/dL (8.5-10.1) Total Bilirubin 0.2 mg/dL (0.2-1.0) Aspartate Amino Transf (AST/SGOT) 18 U/L (15-37) Alanine Aminotransferase (ALT/SGPT) 15 U/L (16-63) Alkaline Phosphatase 60 U/L (46-116) Total Protein 7.8 g/dL (6.4-8.2) Albumin 2.7 g/dL (3.4-5.0) Albumin/Globulin Ratio 0.5 (1.0-1.7) Glucose (Fingerstick) 181 mg/dL (70-99) Images: Images No recent imaging to review Assessment/Plan Assessment/Plan Nonhealing right foot wound and possible wound infection ESRD on HD Medical nonadherence History of diabetes mellitus type 2 Severe protein malnutrition History of peripheral vascular disease with amputation of the right lower extremity digits Admit to hospitalist for further management Nephrology consult for hemodialysis Vascular surgery consult for management of foot wound ID consult Wound care consult Continue empiric IV antibiotics Pending blood cultures Heparin for DVT prophylaxis Protonix GI prophylaxis ADA diet Full code Discussed with RN and SW Disposition inpatient management as above Surrogate decision maker is mother Justifications for Admission Other Justification HYPERKALEMIA, MISSED DIALYSIS LORI EISENBERG MD Apr 24, 2021 07:54
[2021-04-24] MEDS ORDERED: SENNOSIDES 8.6 MG TABLET PO PRN ×2 (08:15→14:00)
[2021-04-24] MEDS ORDERED: PUSH IVP SCH (09:00)
[2021-04-24] MEDS ORDERED: CEFEPIME HCL IVP SCH (09:00)
[2021-04-24] MEDS: FUROSEMIDE 80 MG TABLET. PO SCH (09:06)
[2021-04-24] MEDS: GABAPENTIN 300 MG CAPSULE. PO SCH ×3 (09:06→20:12)
[2021-04-24] MEDS: FOLIC/VIT B COMP W-C (RENAL) TABLET. PO SCH (09:07)
[2021-04-24] MEDS: INSULIN LISPRO 300 UNITS/3 ML VIAL. SQ SCH ×6 (09:14→18:18)
--- NOTE | 2021-04-24 10:30 | PDOC ---
Renal-Progress Notes Subjective Notes Notes FOOT PAIN History of Present Illness Hx of present illness RIGHT FOOT WOUND IS NOT HEALING Vitals Vitals Vital Signs Date Time Temp Pulse Resp B/P (MAP) Pulse Ox O2 Delivery O2 Flow Rate FiO2 04/24/21 07:23 Room Air 04/24/21 07:00 97.8 76 18 100/60 (73) 96 97.8 Weight Weight [ ] I.O. Intake and Output Intake and Output 04/24/21 07:00 Intake Total 240 ml Balance 240 ml Intake Oral 240 ml Labs Labs Laboratory Tests Test 04/24/21 06:40 04/24/21 07:41 White Blood Count 5.1 x10^3/uL (4.0-11.0) Red Blood Count 3.69 x10^6/uL (4.30-5.70) Hemoglobin 10.1 g/dL (13.0-17.5) Hematocrit 31.4 % (39.0-53.0) Mean Corpuscular Volume 85 fL (79-100) Mean Corpuscular Hemoglobin 27 pg (25-35) Mean Corpuscular Hemoglobin Concent 32 g/dL (31-37) Red Cell Distribution Width 16.0 % (11.5-14.5) Platelet Count 187 x10^3/uL (140-400) Neutrophils (%) (Auto) 58 % (31-73) Lymphocytes (%) (Auto) 18 % (24-48) Monocytes (%) (Auto) 18 % (0-9) Eosinophils (%) (Auto) 5 % (0-3) Basophils (%) (Auto) 1 % (0-3) Neutrophils # (Auto) 2.9 x10^3/uL (1.8-7.7) Lymphocytes # (Auto) 0.9 x10^3/uL (1.0-4.8) Monocytes # (Auto) 0.9 x10^3/uL (0.0-1.1) Eosinophils # (Auto) 0.3 x10^3/uL (0.0-0.7) Basophils # (Auto) 0.0 x10^3/uL (0.0-0.2) Sodium Level 137 mmol/L (136-145) Potassium Level 4.7 mmol/L (3.5-5.1) Chloride Level 97 mmol/L (98-107) Carbon Dioxide Level 32 mmol/L (21-32) Anion Gap 8 (6-14) Blood Urea Nitrogen 22 mg/dL (8-26) Creatinine 6.5 mg/dL (0.7-1.3) Estimated GFR (Cockcroft-Gault) 10.4 BUN/Creatinine Ratio 3 (6-20) Glucose Level 188 mg/dL (70-99) Calcium Level 9.6 mg/dL (8.5-10.1) Total Bilirubin 0.2 mg/dL (0.2-1.0) Aspartate Amino Transf (AST/SGOT) 18 U/L (15-37) Alanine Aminotransferase (ALT/SGPT) 15 U/L (16-63) Alkaline Phosphatase 60 U/L (46-116) Total Protein 7.8 g/dL (6.4-8.2) Albumin 2.7 g/dL (3.4-5.0) Albumin/Globulin Ratio 0.5 (1.0-1.7) Glucose (Fingerstick) 181 mg/dL (70-99) Review of Systems Constitutional: yes: weakness, alert, oriented Ears/Nose/Throat: Yes: no symptom reported Pulmonary: Yes no symptom reported Cardiovascular: Yes no symptom reported Gastrointestional: Yes: constipation Genitourinary: Yes: no symptom reported Musculoskeletal: Yes: foot pain, joint pain Skin: Yes no symptom reported Psychiatric/Neurological: Yes: no symptom reported Endocrine: Yes: no symptom reported Physical Exam General Appearance: no apparent distress Skin: warm Respiratory: bilateral CTA Heart: S1S2 Abdomen: soft, bowel sounds present Extremities: pulses present, no edema, atrophy Neurology: alert, oriented Assessment Assessment IMP ESRD ANEMIA HTN DM II S/P R 1ST,2ND AND 3RD AMP FOOT WOUND PAD NON COMPLIANCE PLAN ANTIBIOTICS ID EVAL AND TX RESUME HOME MEDS HD TOMORROW START ARANESP WILL FOLLOW MARTINEZ JENSEN MD Apr 24, 2021 10:30
[2021-04-24] MEDS: HYDROcodone/APAP 5/325MG 1 TAB TABLET PO PRN ×3 (10:44→20:13)
[2021-04-24 11:28] LABS: PROTHROMBIN TIME PATIENT 27.7 SEC (11.7-14.0)
--- NOTE | 2021-04-24 13:35 | NUR ---
SS following for discharge planning. SS reviewed pt chart and discussed with pt RN. Pt is from home and is currently on room air. Nephrology, ID, and wound care following. Pt on IV Cefepime, IV Vancomycin, and PO Lasix. Pt has outpatient hemodialysis at [facility], ; fax [phone], Wednesday, Wednesday, and Wednesday. Pt had IV Cefepime and IV Vancomycin infusions at dialysis clinic. SS will continue to follow for discharge planning.
[2021-04-24] MEDS ORDERED: DOCUSATE SODIUM 100 MG CAPSULE. PO PRN (14:00)
[2021-04-24] MEDS ORDERED: ONDANSETRON PF 4 MG/2 ML VIAL. IVP PRN (14:00)
[2021-04-24] MEDS ORDERED: PROCHLORPERAZINE 10 MG/2 ML VIAL. IV PRN (14:00)
[2021-04-24] MEDS: VANCOMYCIN PER PHARMACY MC PRN (14:37)
--- NOTE | 2021-04-24 14:38 | NUR ---
Pharmacy Vancomycin Dosing Note S:Consulted to monitor and dose vancomycin started 04/24/21. O:UMER VANCE is a 66 year old M with osteomyelitis. Height: 6 feet, 3 inches Weight: 85.0 kg Dosing Weight: Other Antibiotics: CEFEPIME 1G IV Q24HRS LABS: Last BUN: 64 Last Creatinine: 10.4 Creatinine Clearance: ESRD on HD MWF Last WBC: 5.1 Tmax (past 24 hours): 99.1 Microbiology: N/A I/O: 240/- A: Patient has been receiving vancomycin 500 mg IV after HD session (three times/week). Will check a pre-HD random level on 04/25 prior to next dose. P: 1. Follow up Random level on 04/25/21 at 0600 2. Pharmacy will continue to monitor, follow and adjust therapy as needed. AYESHA JACOBO [facility], 04/24/21 [id number]
[2021-04-24] MEDS: WARFARIN 5 MG TABLET. PO SCH (15:21)
[2021-04-24] MEDS: CEFEPIME HCL IV Push 1 GM VIAL. IVP SCH (15:21)
--- NOTE | 2021-04-24 16:27 | NUR ---
Wound/Ostomy Care Wound Type/Assessment: Wound care consult for right foot DFU. Pt has open TMA, done by Vascular surgeon a few months ago. Wound bed is dusky red and sloughy, minimal yellow slough, periwound edema. Treatment Recommendations/Plan: Clean with saline, apply Hydrofera blue, ABD and kerlix, change every 3 days. Education provided: to pt re: POC Offloading surface/device: recommend post-op or half shoe for ambulation Recommended Referrals/Tests: Discharge Recommendations for dressings: see treatment plan above.
[2021-04-24] MEDS: INSULIN GLARGINE SYRINGE. SQ SCH (20:14)
[2021-04-24] MEDS ORDERED: INSULIN GLARGINE SYRINGE. SQ SCH (21:00)
[2021-04-24] MEDS ORDERED: HEPARIN for SUB-Q USE 5,000 UNIT/ML VIAL. SQ SCH (21:00)
[2021-04-24] MEDS ORDERED: ZOLPIDEM 5 MG TABLET. PO PRN (21:45)
[2021-04-25] MEDS: HYDROcodone/APAP 5/325MG 1 TAB TABLET PO PRN ×4 (00:13→17:04)
[2021-04-25] MEDS: MORPHINE SULFATE 2 MG/ML INJ. IVP PRN ×4 (00:13→21:04)
[2021-04-25 02:40] VITALS: BP 120/75
[2021-04-25] MEDS ORDERED: VANCOMYCIN RANDOM LEVEL. MC ONE (06:00)
[2021-04-25 07:00] VITALS: BP 108/59
[2021-04-25] MEDS: INSULIN LISPRO 300 UNITS/3 ML VIAL. SQ SCH ×6 (08:00→17:18)
[2021-04-25 08:20] LABS: BASO % 1 % (0-3); EOS # 0.3 x10^3/uL (0.0-0.7); EOS % 7 % (0-3); HEMATOCRIT 31.3 % (39.0-53.0); LYMPH # 0.8 x10^3/uL (1.0-4.8); LYMPH % 17 % (24-48); MEAN CORPUSCULAR HEMOGLOBIN 27 pg (25-35); MEAN CORPUSCULAR HGB CONC 32 g/dL (31-37); MEAN CORPUSCULAR VOLUME 85 fL (79-100); MONO # 0.7 x10^3/uL (0.0-1.1); MONO % 15 % (0-9); NEUT # 2.8 x10^3/uL (1.8-7.7); NEUT % 60 % (31-73); PLATELET COUNT 215 x10^3/uL (140-400); RED BLOOD COUNT 3.69 x10^6/uL (4.30-5.70); RED CELL DISTRIBUTION WIDTH 15.9 % (11.5-14.5); WHITE BLOOD COUNT 4.7 x10^3/uL (4.0-11.0)
[2021-04-25 08:33] LABS: PROTHROMBIN TIME PATIENT 26.8 SEC (11.7-14.0)
[2021-04-25 08:45] LABS: CALCIUM 9.5 mg/dL (8.5-10.1); CREATININE 8.5 mg/dL (0.7-1.3); GFR 7.7; MAGNESIUM 2.3 mg/dL (1.8-2.4); PHOSPHORUS 6.1 mg/dL (2.6-4.7)
[2021-04-25] MEDS ORDERED: IV NORMAL SALINE 1000ML BAG 1,000 ML IV PRN ×2 (08:45)
[2021-04-25] MEDS ORDERED: LIDOCAINE 1% PF 2 ML VIAL. INJ PRN (08:45)
[2021-04-25] MEDS ORDERED: diphenhydrAMINE 50 MG/ML VIAL IV PRN ×2 (08:45)
[2021-04-25] MEDS ORDERED: DIALYSIS PATIENT. MC PRN ×2 (08:45)
[2021-04-25] MEDS ORDERED: ALBUMIN HUMAN 25% 200 ML IV PRN (08:45)
[2021-04-25] MEDS: GABAPENTIN 300 MG CAPSULE. PO SCH ×3 (09:00→20:50)
[2021-04-25] MEDS: VANCOMYCIN PER PHARMACY MC PRN (09:25)
--- NOTE | 2021-04-25 09:27 | NUR ---
Pharmacy Vancomycin Dosing Note S: Consulted to monitor and dose vancomycin started 04/24/21. O: UMER VANCE is a 66 year old M with Osteomyelitis Other Antibiotics: CEFEPIME 1G IV Q24HRS LABS: Last BUN: 36 Last Creatinine: 8.5 Creatinine Clearance: ESRD on HD MWF Last WBC: 4.7 Last Procalcitonin: - Tmax (past 24 hours): 98.5 Microbiology: N/A I/O: 800/- Drug Levels: Last Random level: 20.7 on 04/25/21 at 0800 Last dose given 04/23/21 at Vancomycin Dosing: Dosing Weight: Target Trough: 15-20 A: Based on: random pre-HD level P: 1. Continue Vancomycin 500 mg IV qMWF after HD sessions 2. Follow up Random level on 04/25/21 at 0600 3. Pharmacy will continue to monitor, follow and adjust therapy as needed. Nika Escobedo RPH, 04/25/21 [id number]
--- NOTE | 2021-04-25 10:57 | PDOC ---
[employer] PROGRESS NOTE Date of Service DOS: DATE: 04/25/21 TIME: 10:56 Chief Complaint Chief Complaint Nonhealing right foot wound and possible wound infection ESRD on HD Medical nonadherence History of diabetes mellitus type 2 Severe protein malnutrition History of peripheral vascular disease with amputation of the right lower extremity digits Admit to hospitalist for further management Nephrology consult for hemodialysis ID consult Wound care consult Continue empiric IV antibiotics Pending blood cultures Heparin for DVT prophylaxis Protonix GI prophylaxis ADA diet Full code Discussed with RN and SW Disposition patient will need home health or SNF. Patient will eventually need a wound VAC to be placed Surrogate decision maker is mother History of Present Illness History of Present Illness 66-year-old male who comes in because of a nonhealing right foot wound. Patient had amputation of his right foot digits in February 2021. He states that he has been through several nursing facilities and feels that he gets dumped somewhere else because he does not meet criteria for the nursing facility. He was actually supposed to be on vancomycin and cefepime for outpatient IV infusion and he was sent home with home health with a wound VAC. He states that he could not wear the wound VAC because it was too cumbersome for him to move around so he has not been using it for the last 3 weeks. Patient denies any fevers, chest pain, abdominal pain, dysuria, diarrhea or bloody stools. Does not report any active bleeding from the wound or extreme pain. He does not notice any foul smelling odor seeping from his surgical site. 04/25/2021 No acute events overnight. Pain is well controlled. Patient is heading to the dialysis for today. Continue with wound care and IV antibiotics. Pending eval uation from ID. Patient's chart, labs, images were reviewed and discussed with RN Vitals/I&O Vitals/I&O: Vital Signs Date Time Temp Pulse Resp B/P (MAP) Pulse Ox O2 Delivery O2 Flow Rate FiO2 04/25/21 08:15 Room Air 04/25/21 07:00 98.5 79 16 108/59 (75) 96 98.5 I & O 04/24/21 04/24/21 04/25/21 15:00 23:00 07:00 Intake Total 200 ml 600 ml Balance 200 ml 600 ml Physical Exam General: Alert, Oriented X3, Cooperative Lungs: Clear Extremities: Other (Right foot nonhealing wound infection) Labs Labs: Laboratory Tests Test 04/24/21 11:00 04/24/21 12:48 04/24/21 17:03 04/24/21 20:11 Prothrombin Time 27.7 SEC (11.7-14.0) Prothromb Time International Ratio 2.6 (0.8-1.1) Glucose (Fingerstick) 124 mg/dL (70-99) 269 mg/dL (70-99) 160 mg/dL (70-99) Test 04/25/21 07:05 04/25/21 08:00 Glucose (Fingerstick) 187 mg/dL (70-99) White Blood Count 4.7 x10^3/uL (4.0-11.0) Red Blood Count 3.69 x10^6/uL (4.30-5.70) Hemoglobin 10.0 g/dL (13.0-17.5) Hematocrit 31.3 % (39.0-53.0) Mean Corpuscular Volume 85 fL (79-100) Mean Corpuscular Hemoglobin 27 pg (25-35) Mean Corpuscular Hemoglobin Concent 32 g/dL (31-37) Red Cell Distribution Width 15.9 % (11.5-14.5) Platelet Count 215 x10^3/uL (140-400) Neutrophils (%) (Auto) 60 % (31-73) Lymphocytes (%) (Auto) 17 % (24-48) Monocytes (%) (Auto) 15 % (0-9) Eosinophils (%) (Auto) 7 % (0-3) Basophils (%) (Auto) 1 % (0-3) Neutrophils # (Auto) 2.8 x10^3/uL (1.8-7.7) Lymphocytes # (Auto) 0.8 x10^3/uL (1.0-4.8) Monocytes # (Auto) 0.7 x10^3/uL (0.0-1.1) Eosinophils # (Auto) 0.3 x10^3/uL (0.0-0.7) Basophils # (Auto) 0.0 x10^3/uL (0.0-0.2) Prothrombin Time 26.8 SEC (11.7-14.0) Prothromb Time International Ratio 2.5 (0.8-1.1) Sodium Level 138 mmol/L (136-145) Potassium Level 5.0 mmol/L (3.5-5.1) Chloride Level 99 mmol/L (98-107) Carbon Dioxide Level 31 mmol/L (21-32) Anion Gap 8 (6-14) Blood Urea Nitrogen 36 mg/dL (8-26) Creatinine 8.5 mg/dL (0.7-1.3) Estimated GFR (Cockcroft-Gault) 7.7 Glucose Level 214 mg/dL (70-99) Calcium Level 9.5 mg/dL (8.5-10.1) Phosphorus Level 6.1 mg/dL (2.6-4.7) Magnesium Level 2.3 mg/dL (1.8-2.4) Random Vancomycin Level 20.7 mcg/mL Comment Review of Relevant I have reviewed the following items keron (where applicable) has been applied. Medications: Current Medications Medications (Trade) Dose Ordered Sig/Raymon Route PRN Reason Start Time Stop Time Status Last Admin Dose Admin Warfarin Sodium (Coumadin) 5 mg [id number] PO 04/24/21 16:00 04/24/21 15:21 Insulin Glargine (Lantus Syringe) 22 unit QHS SQ 04/24/21 21:00 04/24/21 20:14 Cefepime HCl (Maxipime) 1 gm Q24H IVP 04/24/21 16:00 04/24/21 15:21 Warfarin Sodium (Coumadin Per Physician) 1 each PRN DAILY PRN MC SEE COMMENTS 04/24/21 12:00 04/25/21 09:31 Insulin Human Lispro (HumaLOG) 0-5 UNITS TIDWMEALS SQ 04/24/21 17:00 04/24/21 18:18 Vancomycin HCl (Vancomycin Random Level) 1 each 1X ONCE MC 04/25/21 06:00 04/25/21 06:01 DC 04/25/21 05:36 Zolpidem Tartrate (Ambien) 5 mg PRN QHS PRN PO INSOMNIA 04/24/21 21:45 04/24/21 21:56 Diphenhydramine HCl (Benadryl) 25 mg 1X PRN PRN IV ITCHING 04/25/21 08:45 04/26/21 08:44 04/25/21 09:50 Lidocaine HCl (Xylocaine-Mpf 1% 2ml Vial) 2 ml 1X PRN PRN INJ FOR DIALYSIS 04/25/21 08:45 04/26/21 08:44 04/25/21 09:00 Justifications for Admission Other Justification Right foot wound infection LORI EISENBERG MD Apr 25, 2021 10:57
--- NOTE | 2021-04-25 10:59 | PDOC ---
Renal-Progress Notes Subjective Notes Notes NO NEW COMPLAINTS History of Present Illness Hx of present illness STABLE Vitals Vitals Vital Signs Date Time Temp Pulse Resp B/P (MAP) Pulse Ox O2 Delivery O2 Flow Rate FiO2 04/25/21 08:15 Room Air 04/25/21 07:00 98.5 79 16 108/59 (75) 96 98.5 Weight Weight [ ] I.O. Intake and Output Intake and Output 04/25/21 07:00 Intake Total 800 ml Balance 800 ml Intake Oral 800 ml # Voids 1 Labs Labs Laboratory Tests Test 04/24/21 11:00 04/24/21 12:48 04/24/21 17:03 04/24/21 20:11 Prothrombin Time 27.7 SEC (11.7-14.0) Prothromb Time International Ratio 2.6 (0.8-1.1) Glucose (Fingerstick) 124 mg/dL (70-99) 269 mg/dL (70-99) 160 mg/dL (70-99) Test 04/25/21 07:05 04/25/21 08:00 Glucose (Fingerstick) 187 mg/dL (70-99) White Blood Count 4.7 x10^3/uL (4.0-11.0) Red Blood Count 3.69 x10^6/uL (4.30-5.70) Hemoglobin 10.0 g/dL (13.0-17.5) Hematocrit 31.3 % (39.0-53.0) Mean Corpuscular Volume 85 fL (79-100) Mean Corpuscular Hemoglobin 27 pg (25-35) Mean Corpuscular Hemoglobin Concent 32 g/dL (31-37) Red Cell Distribution Width 15.9 % (11.5-14.5) Platelet Count 215 x10^3/uL (140-400) Neutrophils (%) (Auto) 60 % (31-73) Lymphocytes (%) (Auto) 17 % (24-48) Monocytes (%) (Auto) 15 % (0-9) Eosinophils (%) (Auto) 7 % (0-3) Basophils (%) (Auto) 1 % (0-3) Neutrophils # (Auto) 2.8 x10^3/uL (1.8-7.7) Lymphocytes # (Auto) 0.8 x10^3/uL (1.0-4.8) Monocytes # (Auto) 0.7 x10^3/uL (0.0-1.1) Eosinophils # (Auto) 0.3 x10^3/uL (0.0-0.7) Basophils # (Auto) 0.0 x10^3/uL (0.0-0.2) Prothrombin Time 26.8 SEC (11.7-14.0) Prothromb Time International Ratio 2.5 (0.8-1.1) Sodium Level 138 mmol/L (136-145) Potassium Level 5.0 mmol/L (3.5-5.1) Chloride Level 99 mmol/L (98-107) Carbon Dioxide Level 31 mmol/L (21-32) Anion Gap 8 (6-14) Blood Urea Nitrogen 36 mg/dL (8-26) Creatinine 8.5 mg/dL (0.7-1.3) Estimated GFR (Cockcroft-Gault) 7.7 Glucose Level 214 mg/dL (70-99) Calcium Level 9.5 mg/dL (8.5-10.1) Phosphorus Level 6.1 mg/dL (2.6-4.7) Magnesium Level 2.3 mg/dL (1.8-2.4) Random Vancomycin Level 20.7 mcg/mL Review of Systems Constitutional: yes: weakness, alert, oriented Ears/Nose/Throat: Yes: no symptom reported Pulmonary: Yes no symptom reported Cardiovascular: Yes no symptom reported Gastrointestional: Yes: constipation Genitourinary: Yes: no symptom reported Musculoskeletal: Yes: foot pain, joint pain Skin: Yes no symptom reported Psychiatric/Neurological: Yes: no symptom reported Endocrine: Yes: no symptom reported Physical Exam General Appearance: no apparent distress Skin: warm Respiratory: bilateral CTA Heart: S1S2 Abdomen: soft, bowel sounds present Extremities: pulses present, no edema, atrophy Neurology: alert, oriented Assessment Assessment IMP ESRD ANEMIA HTN DM II S/P R 1ST,2ND AND 3RD AMP FOOT WOUND PAD NON COMPLIANCE PLAN ANTIBIOTICS ID EVAL AND TX HD TODAY UF TO TW NICOYAQUELINP WILL FOLLOW MARTINEZ JENSEN MD Apr 25, 2021 10:59
--- NOTE | 2021-04-25 10:59 | NUR ---
SS following up with discharge planning. SS reviewed pt chart and discussed with pt RN. Pt is currently on room air. Pt on IV Cefepime and IV Vancomycin. Wound care following. Pt has outpatient dialysis at [facility], ; fax [phone], Wednesday, Wednesday, and Wednesday. Pt currently in dialysis. PT/OT ordered. PT recommended long-term unit. SS will continue to follow for discharge planning. Addendum: 04/25/21 at 1347 by SHEILA BLACKMON SS SS met with pt to discuss discharge planning and long-term unit. Pt agreeable to long-term unit and requested to go to [facility], ; fax [phone]. Pt has had both COVID19 vaccinations. Copy of vaccination card placed in chart. SS phoned and faxed referral as requested. COVID19 test requested for placement.
--- NOTE | 2021-04-25 12:32 | PDOC ---
Infectious Disease Note Subjective: Subjective Patient is well-known to us from recent discharge See last ID consult in progress note for full details Patient was seen in dialysis unit 66-year-old male who comes in because of a nonhealing right foot wound. Patient was recently discharged with IV cefepime and Vanco postdialysis and home health with wound VAC He states that he could not wear the wound VAC because it was too cumbersome for him to move around so he has not been using it for the last 3 weeks. Patient was readmitted for further evaluation and treatment He denies any fevers, nausea, vomiting, diarrhea, abdominal pain, chest pain ID consultation is requested for antibiotic management Vital Signs: Vital Signs Vital Signs Date Time Temp Pulse Resp B/P (MAP) Pulse Ox O2 Delivery O2 Flow Rate FiO2 04/25/21 12:02 18 98 Room Air 04/25/21 07:00 98.5 79 108/59 (75) 98.5 Physical Exam: PHYSICAL EXAM GENERAL: Alert, oriented x 3 male, in no acute distress. HEENT: Normocephalic, atraumatic. Conjunctivae are clear. Oropharynx is clear. NECK: Supple. LUNGS: Clear bilaterally. No accessory muscle use. HEART: S1, S2. No murmurs. ABDOMEN: Soft, nontender, nondistended. Bowel sounds present. EXTREMITIES: Right foot wound dressing in place, not taken down as he was undergoing dilaysis DERMATOLOGIC: Warm, dry skin. No generalized rash. NEUROLOGIC: Alert, oriented x 3, grossly nonfocal. PSYCHIATRIC: Cooperative, calm. ACCESS: Right upper arm AV fistula clean. Medications: Inpatient Meds: Medications reviewed. Labs: Lab Laboratory Tests Test 04/24/21 12:48 04/24/21 17:03 04/24/21 20:11 04/25/21 07:05 Glucose (Fingerstick) 124 mg/dL (70-99) 269 mg/dL (70-99) 160 mg/dL (70-99) 187 mg/dL (70-99) Test 04/25/21 08:00 04/25/21 11:59 White Blood Count 4.7 x10^3/uL (4.0-11.0) Red Blood Count 3.69 x10^6/uL (4.30-5.70) Hemoglobin 10.0 g/dL (13.0-17.5) Hematocrit 31.3 % (39.0-53.0) Mean Corpuscular Volume 85 fL (79-100) Mean Corpuscular Hemoglobin 27 pg (25-35) Mean Corpuscular Hemoglobin Concent 32 g/dL (31-37) Red Cell Distribution Width 15.9 % (11.5-14.5) Platelet Count 215 x10^3/uL (140-400) Neutrophils (%) (Auto) 60 % (31-73) Lymphocytes (%) (Auto) 17 % (24-48) Monocytes (%) (Auto) 15 % (0-9) Eosinophils (%) (Auto) 7 % (0-3) Basophils (%) (Auto) 1 % (0-3) Neutrophils # (Auto) 2.8 x10^3/uL (1.8-7.7) Lymphocytes # (Auto) 0.8 x10^3/uL (1.0-4.8) Monocytes # (Auto) 0.7 x10^3/uL (0.0-1.1) Eosinophils # (Auto) 0.3 x10^3/uL (0.0-0.7) Basophils # (Auto) 0.0 x10^3/uL (0.0-0.2) Prothrombin Time 26.8 SEC (11.7-14.0) Prothromb Time International Ratio 2.5 (0.8-1.1) Sodium Level 138 mmol/L (136-145) Potassium Level 5.0 mmol/L (3.5-5.1) Chloride Level 99 mmol/L (98-107) Carbon Dioxide Level 31 mmol/L (21-32) Anion Gap 8 (6-14) Blood Urea Nitrogen 36 mg/dL (8-26) Creatinine 8.5 mg/dL (0.7-1.3) Estimated GFR (Cockcroft-Gault) 7.7 Glucose Level 214 mg/dL (70-99) Calcium Level 9.5 mg/dL (8.5-10.1) Phosphorus Level 6.1 mg/dL (2.6-4.7) Magnesium Level 2.3 mg/dL (1.8-2.4) Random Vancomycin Level 20.7 mcg/mL Glucose (Fingerstick) 120 mg/dL (70-99) Objective: Assessment: 1. 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 End-stage renal disease on hemodialysis 3. Noncompliant 4. Diabetes mellitus 5. History of peripheral vascular disease. 6. Atrial fibrillation, on Coumadin. Plan: Plan of Care Continue Vanco and cefepime Wound care as directed Agree with wound VAC Compliance emphasized Monitor lab Supportive care GIL ANDRADE MD Apr 25, 2021 12:32
[2021-04-25] MEDS: FUROSEMIDE 80 MG TABLET. PO SCH (12:56)
[2021-04-25] MEDS: LACTOBACILLUS RHAMNOSUS GG 1 CAPSULE. PO SCH ×2 (12:56→20:50)
[2021-04-25] MEDS: FOLIC/VIT B COMP W-C (RENAL) TABLET. PO SCH (12:57)
[2021-04-25 13:09] VITALS: BP 120/64
[2021-04-25 15:00] VITALS: BP 96/63
[2021-04-25] MEDS: WARFARIN 5 MG TABLET. PO SCH (17:04)
[2021-04-25] MEDS: VANCOMYCIN 500 MG in IV NORMAL SALINE 100ML 100 ML IV SCH (17:04)
[2021-04-25] MEDS: CEFEPIME HCL IV Push 1 GM VIAL. IVP SCH (17:16)
[2021-04-25 19:15] VITALS: BP 97/58
[2021-04-25] MEDS: INSULIN GLARGINE SYRINGE. SQ SCH (21:05)
[2021-04-26] MEDS: MORPHINE SULFATE 2 MG/ML INJ. IVP PRN ×3 (02:44→15:31)
[2021-04-26 03:00] VITALS: BP 116/63
[2021-04-26 07:00] VITALS: BP 108/68
[2021-04-26 07:53] LABS: BASO % 1 % (0-3); EOS # 0.3 x10^3/uL (0.0-0.7); EOS % 7 % (0-3); HEMATOCRIT 31.4 % (39.0-53.0); HEMOGLOBIN 10.1 g/dL (13.0-17.5); LYMPH # 0.9 x10^3/uL (1.0-4.8); LYMPH % 18 % (24-48); MEAN CORPUSCULAR HEMOGLOBIN 27 pg (25-35); MEAN CORPUSCULAR HGB CONC 32 g/dL (31-37); MEAN CORPUSCULAR VOLUME 85 fL (79-100); MONO # 0.8 x10^3/uL (0.0-1.1); MONO % 17 % (0-9); NEUT # 2.7 x10^3/uL (1.8-7.7); NEUT % 57 % (31-73); PLATELET COUNT 203 x10^3/uL (140-400); RED CELL DISTRIBUTION WIDTH 16.2 % (11.5-14.5); WHITE BLOOD COUNT 4.8 x10^3/uL (4.0-11.0)
[2021-04-26 08:04] LABS: PROTHROMBIN TIME PATIENT 26.2 SEC (11.7-14.0)
[2021-04-26 08:06] LABS: CALCIUM 9.8 mg/dL (8.5-10.1); CREATININE 6.4 mg/dL (0.7-1.3); GFR 10.6; MAGNESIUM 2.2 mg/dL (1.8-2.4)
[2021-04-26 08:09] LABS: POTASSIUM 5.2 mmol/L (3.5-5.1)
--- NOTE | 2021-04-26 08:10 | PDOC ---
Infectious Disease Note Subjective: Subjective Pt without complaints Vital Signs: Vital Signs Vital Signs Date Time Temp Pulse Resp B/P (MAP) Pulse Ox O2 Delivery O2 Flow Rate FiO2 04/26/21 03:14 20 Room Air 04/26/21 03:00 98.7 82 116/63 (80) 95 98.7 Physical Exam: PHYSICAL EXAM GENERAL: Alert, oriented x 3 male, in no acute distress. HEENT: Normocephalic, atraumatic. Conjunctivae are clear. Oropharynx is clear. NECK: Supple. LUNGS: Clear bilaterally. No accessory muscle use. HEART: S1, S2. No murmurs. ABDOMEN: Soft, nontender, nondistended. Bowel sounds present. EXTREMITIES: Right foot wound dressing in place, dry not taken down DERMATOLOGIC: Warm, dry skin. No generalized rash. NEUROLOGIC: Alert, oriented x 3, grossly nonfocal. PSYCHIATRIC: Cooperative, calm. ACCESS: Right upper arm AV fistula clean. Medications: Inpatient Meds: Medications reviewed. Labs: Lab Laboratory Tests Test 04/25/21 11:30 04/25/21 11:59 04/25/21 12:52 04/25/21 16:35 Hepatitis B Core Total Antibody Reactive (Nonreactive) Glucose (Fingerstick) 120 mg/dL (70-99) 128 mg/dL (70-99) 278 mg/dL (70-99) Test 04/25/21 21:01 04/26/21 07:15 04/26/21 08:00 Glucose (Fingerstick) 122 mg/dL (70-99) 236 mg/dL (70-99) White Blood Count 4.8 x10^3/uL (4.0-11.0) Red Blood Count 3.70 x10^6/uL (4.30-5.70) Hemoglobin 10.1 g/dL (13.0-17.5) Hematocrit 31.4 % (39.0-53.0) Mean Corpuscular Volume 85 fL (79-100) Mean Corpuscular Hemoglobin 27 pg (25-35) Mean Corpuscular Hemoglobin Concent 32 g/dL (31-37) Red Cell Distribution Width 16.2 % (11.5-14.5) Platelet Count 203 x10^3/uL (140-400) Neutrophils (%) (Auto) 57 % (31-73) Lymphocytes (%) (Auto) 18 % (24-48) Monocytes (%) (Auto) 17 % (0-9) Eosinophils (%) (Auto) 7 % (0-3) Basophils (%) (Auto) 1 % (0-3) Neutrophils # (Auto) 2.7 x10^3/uL (1.8-7.7) Lymphocytes # (Auto) 0.9 x10^3/uL (1.0-4.8) Monocytes # (Auto) 0.8 x10^3/uL (0.0-1.1) Eosinophils # (Auto) 0.3 x10^3/uL (0.0-0.7) Basophils # (Auto) 0.0 x10^3/uL (0.0-0.2) Prothrombin Time 26.2 SEC (11.7-14.0) Prothromb Time International Ratio 2.5 (0.8-1.1) Sodium Level 134 mmol/L (136-145) Potassium Level 5.2 mmol/L (3.5-5.1) Chloride Level 97 mmol/L (98-107) Carbon Dioxide Level 29 mmol/L (21-32) Anion Gap 8 (6-14) Blood Urea Nitrogen 33 mg/dL (8-26) Creatinine 6.4 mg/dL (0.7-1.3) Estimated GFR (Cockcroft-Gault) 10.6 Glucose Level 241 mg/dL (70-99) Calcium Level 9.8 mg/dL (8.5-10.1) Magnesium Level 2.2 mg/dL (1.8-2.4) Objective: Assessment: 1. 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 End-stage renal disease on hemodialysis 3. Noncompliant 4. Diabetes mellitus 5. History of peripheral vascular disease. 6. Atrial fibrillation, on Coumadin. Plan: Plan of Care Continue Vanco and cefepime, had been on the same prior to admission Wound care as directed Encouraged for wound VAC, patient is reluctant Pros and cons discussed Monitor lab Supportive care GIL ANDRADE MD Apr 26, 2021 08:10
[2021-04-26] MEDS: FOLIC/VIT B COMP W-C (RENAL) TABLET. PO SCH (08:40)
[2021-04-26] MEDS: GABAPENTIN 300 MG CAPSULE. PO SCH ×3 (08:41→20:45)
[2021-04-26] MEDS: FUROSEMIDE 80 MG TABLET. PO SCH (08:41)
[2021-04-26] MEDS: LACTOBACILLUS RHAMNOSUS GG 1 CAPSULE. PO SCH ×2 (08:41→20:45)
[2021-04-26] MEDS: INSULIN LISPRO 300 UNITS/3 ML VIAL. SQ SCH ×6 (08:51→17:00)
[2021-04-26] MEDS: HYDROcodone/APAP 5/325MG 1 TAB TABLET PO PRN (10:18)
[2021-04-26 11:00] VITALS: BP 108/60
--- NOTE | 2021-04-26 11:30 | PDOC ---
[employer] PROGRESS NOTE Date of Service DOS: DATE: 04/26/21 TIME: 11:19 Chief Complaint Chief Complaint Right foot osteomyelitis. ESRD on HD. History of diabetes mellitus type 2. Severe protein malnutrition. History of peripheral vascular disease with amputation of the right lower extremity digits. History of Present Illness History of Present Illness 66-year-old male who comes in because of a nonhealing right foot wound. Patient had amputation of his right foot digits in February 2021. He states that he has been through several nursing facilities and feels that he gets dumped somewhere else because he does not meet criteria for the nursing facility. He was actually supposed to be on vancomycin and cefepime for outpatient IV infusion and he was sent home with home health with a wound VAC. He states that he could not wear the wound VAC because it was too cumbersome for him to move around so he has not been using it for the last 3 weeks. Patient denies any fevers, chest pain, abdominal pain, dysuria, diarrhea or bloody stools. Does not report any active bleeding from the wound or extreme pain. He does not notice any foul smelling odor seeping from his surgical site. 04/25/2021 No acute events overnight. Pain is well controlled. Patient is heading to the dialysis for today. Continue with wound care and IV antibiotics. Pending evaluation from ID. Patient's chart, labs, images were reviewed and discussed with RN. 04/26/2021 Patient seen and examined at bedside. D/W RN. Chart reviewed. Patient is sitting upright eating breakfast. Vitals/I&O Vitals/I&O: Vital Signs Date Time Temp Pulse Resp B/P (MAP) Pulse Ox O2 Delivery O2 Flow Rate FiO2 04/26/21 10:18 Room Air 04/26/21 08:41 79 108/68 04/26/21 07:00 97.7 18 97 97.7 I & O 04/25/21 04/25/21 04/26/21 15:00 23:00 07:00 Intake Total 720 ml 800 ml 480 ml Balance 720 ml 800 ml 480 ml Physical Exam Physical Exam: GENERAL: Alert, oriented x 3 male, in no acute distress. HEENT: Normocephalic, atraumatic. Conjunctivae are clear. Oropharynx is clear. NECK: Supple. LUNGS: Clear bilaterally. No accessory muscle use. HEART: S1, S2. No murmurs. ABDOMEN: Soft, nontender, nondistended. Bowel sounds present. EXTREMITIES: Right foot wound dressing in place, dry not taken down DERMATOLOGIC: Warm, dry skin. No generalized rash. NEUROLOGIC: Alert, oriented x 3, grossly nonfocal. PSYCHIATRIC: Cooperative, calm. ACCESS: Right upper arm AV fistula clean. General: Alert, Oriented X3, Cooperative Lungs: Clear Extremities: Other (Right foot nonhealing wound infection) Labs Labs: Laboratory Tests Test 04/25/21 11:30 04/25/21 11:59 04/25/21 12:52 04/25/21 16:35 Hepatitis B Core Total Antibody Reactive (Nonreactive) Glucose (Fingerstick) 120 mg/dL (70-99) 128 mg/dL (70-99) 278 mg/dL (70-99) Test 04/25/21 21:01 04/26/21 07:15 04/26/21 08:00 Glucose (Fingerstick) 122 mg/dL (70-99) 236 mg/dL (70-99) White Blood Count 4.8 x10^3/uL (4.0-11.0) Red Blood Count 3.70 x10^6/uL (4.30-5.70) Hemoglobin 10.1 g/dL (13.0-17.5) Hematocrit 31.4 % (39.0-53.0) Mean Corpuscular Volume 85 fL (79-100) Mean Corpuscular Hemoglobin 27 pg (25-35) Mean Corpuscular Hemoglobin Concent 32 g/dL (31-37) Red Cell Distribution Width 16.2 % (11.5-14.5) Platelet Count 203 x10^3/uL (140-400) Neutrophils (%) (Auto) 57 % (31-73) Lymphocytes (%) (Auto) 18 % (24-48) Monocytes (%) (Auto) 17 % (0-9) Eosinophils (%) (Auto) 7 % (0-3) Basophils (%) (Auto) 1 % (0-3) Neutrophils # (Auto) 2.7 x10^3/uL (1.8-7.7) Lymphocytes # (Auto) 0.9 x10^3/uL (1.0-4.8) Monocytes # (Auto) 0.8 x10^3/uL (0.0-1.1) Eosinophils # (Auto) 0.3 x10^3/uL (0.0-0.7) Basophils # (Auto) 0.0 x10^3/uL (0.0-0.2) Prothrombin Time 26.2 SEC (11.7-14.0) Prothromb Time International Ratio 2.5 (0.8-1.1) Sodium Level 134 mmol/L (136-145) Potassium Level 5.2 mmol/L (3.5-5.1) Chloride Level 97 mmol/L (98-107) Carbon Dioxide Level 29 mmol/L (21-32) Anion Gap 8 (6-14) Blood Urea Nitrogen 33 mg/dL (8-26) Creatinine 6.4 mg/dL (0.7-1.3) Estimated GFR (Cockcroft-Gault) 10.6 Glucose Level 241 mg/dL (70-99) Calcium Level 9.8 mg/dL (8.5-10.1) Magnesium Level 2.2 mg/dL (1.8-2.4) Review of Systems Review of Systems: Denies fever. Denies confusion. Assessment and Plan Assessmemt and Plan Assessment: Right foot osteomyelitis. ESRD on HD. History of diabetes mellitus type 2. Severe protein malnutrition. History of peripheral vascular disease with amputation of the right lower extremity digits. Plan: Wound care. IV antibiotics. Check labs. DVT prophylaxis. PT/OT. Full code. HD per nephrology. Appreciate subspecialist input. Discharge disposition pending. Comment Review of Relevant I have reviewed the following items keron (where applicable) has been applied. Medications: Current Medications Medications (Trade) Dose Ordered Sig/Raymon Route PRN Reason Start Time Stop Time Status Last Admin Dose Admin Vancomycin HCl 500 mg/Sodium Chloride 100 ml @ 100 mls/hr QMWF IV 04/25/21 16:00 04/25/21 17:04 Justifications for Admission Other Justification Right foot wound infection JORGE MAN III DO Apr 26, 2021 11:30
[2021-04-26] MEDS: HYDROcodone/APAP 7.5/325MG 1 TAB TABLET PO PRN ×3 (12:49→22:24)
[2021-04-26 15:00] VITALS: BP 109/50
[2021-04-26] MEDS: CEFEPIME HCL IV Push 1 GM VIAL. IVP SCH (15:30)
[2021-04-26] MEDS: WARFARIN 5 MG TABLET. PO SCH (15:30)
[2021-04-26 19:35] VITALS: BP 101/59
[2021-04-26] MEDS: INSULIN GLARGINE SYRINGE. SQ SCH (20:45)
[2021-04-26 23:00] VITALS: BP 102/58
[2021-04-27 02:58] VITALS: BP 89/51
[2021-04-27 07:00] VITALS: BP 113/63
--- NOTE | 2021-04-27 08:24 | PDOC ---
Infectious Disease Note Subjective: Subjective Pt without complaints Vital Signs: Vital Signs Vital Signs Date Time Temp Pulse Resp B/P (MAP) Pulse Ox O2 Delivery O2 Flow Rate FiO2 04/27/21 02:58 98.0 77 18 89/51 (64) 97 Room Air 98.0 Physical Exam: PHYSICAL EXAM GENERAL: Alert, oriented x 3 male, in no acute distress. HEENT: Normocephalic, atraumatic. Conjunctivae are clear. Oropharynx is clear. NECK: Supple. LUNGS: Clear bilaterally. No accessory muscle use. HEART: S1, S2. No murmurs. ABDOMEN: Soft, nontender, nondistended. Bowel sounds present. EXTREMITIES: Right foot wound dressing in place, dry not taken down DERMATOLOGIC: Warm, dry skin. No generalized rash. NEUROLOGIC: Alert, oriented x 3, grossly nonfocal. PSYCHIATRIC: Cooperative, calm. ACCESS: Right upper arm AV fistula clean. Medications: Inpatient Meds: Medications reviewed. Labs: Lab Laboratory Tests Test 04/26/21 12:07 04/26/21 17:11 04/26/21 20:30 Glucose (Fingerstick) 151 mg/dL (70-99) 76 mg/dL (70-99) 230 mg/dL (70-99) Objective: Assessment: 1. 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 End-stage renal disease on hemodialysis 3. Noncompliant 4. Diabetes mellitus 5. History of peripheral vascular disease. 6. Atrial fibrillation, on Coumadin. Plan: Plan of Care Continue Vanco and Cefepime,renal dosing, had been on the same prior to admission Wound/VAC care as directed by wound team Encouraged for wound VAC, patient says it does not work for him Pros and cons discussed Monitor lab Supportive care GIL ANDRADE MD Apr 27, 2021 08:24
[2021-04-27 08:25] LABS: BASO # 0.1 x10^3/uL (0.0-0.2); BASO % 1 % (0-3); EOS # 0.4 x10^3/uL (0.0-0.7); EOS % 7 % (0-3); HEMATOCRIT 29.8 % (39.0-53.0); HEMOGLOBIN 9.6 g/dL (13.0-17.5); LYMPH % 21 % (24-48); MEAN CORPUSCULAR HEMOGLOBIN 27 pg (25-35); MEAN CORPUSCULAR HGB CONC 32 g/dL (31-37); MEAN CORPUSCULAR VOLUME 85 fL (79-100); MONO # 0.8 x10^3/uL (0.0-1.1); MONO % 17 % (0-9); NEUT # 2.6 x10^3/uL (1.8-7.7); NEUT % 54 % (31-73); PLATELET COUNT 172 x10^3/uL (140-400); RED CELL DISTRIBUTION WIDTH 15.9 % (11.5-14.5); WHITE BLOOD COUNT 4.8 x10^3/uL (4.0-11.0)
[2021-04-27 08:36] LABS: PROTHROMBIN TIME PATIENT 24.4 SEC (11.7-14.0)
[2021-04-27 08:37] LABS: CALCIUM 9.5 mg/dL (8.5-10.1); CREATININE 8.5 mg/dL (0.7-1.3); GFR 7.7; MAGNESIUM 2.4 mg/dL (1.8-2.4)
[2021-04-27 08:40] LABS: POTASSIUM 5.5 mmol/L (3.5-5.1)
[2021-04-27] MEDS: FOLIC/VIT B COMP W-C (RENAL) TABLET. PO SCH (08:45)
[2021-04-27] MEDS: GABAPENTIN 300 MG CAPSULE. PO SCH ×3 (08:45→21:17)
[2021-04-27] MEDS: LACTOBACILLUS RHAMNOSUS GG 1 CAPSULE. PO SCH ×2 (08:45→21:17)
[2021-04-27] MEDS: HYDROcodone/APAP 7.5/325MG 1 TAB TABLET PO PRN ×4 (08:46→21:37)
[2021-04-27] MEDS: FUROSEMIDE 80 MG TABLET. PO SCH (08:46)
[2021-04-27] MEDS: INSULIN LISPRO 300 UNITS/3 ML VIAL. SQ SCH ×6 (08:51→17:43)
--- NOTE | 2021-04-27 10:00 | PDOC ---
[employer] PROGRESS NOTE Date of Service DOS: DATE: 04/27/21 TIME: 09:36 Chief Complaint Chief Complaint Nonhealing right diabetic foot wound. S/P amputation of first, second, and third toe. ESRD on HD. Severe protein malnutrition. History of Present Illness History of Present Illness 66-year-old male who comes in because of a nonhealing right foot wound. Patient had amputation of his right foot digits in February 2021. He states that he has been through several nursing facilities and feels that he gets dumped somewhere else because he does not meet criteria for the nursing facility. He was actually supposed to be on vancomycin and cefepime for outpatient IV infusion and he was sent home with home health with a wound VAC. He states that he could not wear the wound VAC because it was too cumbersome for him to move around so he has not been using it for the last 3 weeks. Patient denies any fevers, chest pain, abdominal pain, dysuria, diarrhea or bloody stools. Does not report any active bleeding from the wound or extreme pain. He does not notice any foul smelling odor seeping from his surgical site. 04/25/2021 No acute events overnight. Pain is well controlled. Patient is heading to the dialysis for today. Continue with wound care and IV antibiotics. Pending evaluation from ID. Patient's chart, labs, images were reviewed and discussed with RN. 04/26/2021 Patient seen and examined at bedside. D/W RN. Chart reviewed. Patient is sitting upright eating breakfast. 04/27/2021 Patient seen and examined at bedside. D/W RN. Chart reviewed. Patient is sitting upright preparing to eat breakfast. He says he is hungry. Discussed possible need for wound vac. Patient is reluctant to start wound vac. Wound care team to follow patient. Vitals/I&O Vitals/I&O: Vital Signs Date Time Temp Pulse Resp B/P (MAP) Pulse Ox O2 Delivery O2 Flow Rate FiO2 04/27/21 08:46 Room Air 04/27/21 08:46 85 113/63 04/27/21 07:00 97.7 16 93 97.7 I & O 04/26/21 04/26/21 04/27/21 15:00 23:00 07:00 Intake Total 680 ml Balance 680 ml Physical Exam Physical Exam: GENERAL: Alert, oriented x 3 male, in no acute distress. HEENT: Normocephalic, atraumatic. Conjunctivae are clear. Oropharynx is clear. NECK: Supple. LUNGS: Clear bilaterally. No accessory muscle use. HEART: S1, S2. No murmurs. ABDOMEN: Soft, nontender, nondistended. Bowel sounds present. EXTREMITIES: Right foot wound dressing in place, dry not taken down DERMATOLOGIC: Warm, dry skin. No generalized rash. NEUROLOGIC: Alert, oriented x 3, grossly nonfocal. PSYCHIATRIC: Cooperative, calm. ACCESS: Right upper arm AV fistula clean. General: Alert, Oriented X3, Cooperative Lungs: Clear Extremities: Other (Right foot nonhealing wound infection) Labs Labs: Laboratory Tests Test 04/26/21 12:07 04/26/21 17:11 04/26/21 20:30 04/27/21 07:10 Glucose (Fingerstick) 151 mg/dL (70-99) 76 mg/dL (70-99) 230 mg/dL (70-99) White Blood Count 4.8 x10^3/uL (4.0-11.0) Red Blood Count 3.50 x10^6/uL (4.30-5.70) Hemoglobin 9.6 g/dL (13.0-17.5) Hematocrit 29.8 % (39.0-53.0) Mean Corpuscular Volume 85 fL (79-100) Mean Corpuscular Hemoglobin 27 pg (25-35) Mean Corpuscular Hemoglobin Concent 32 g/dL (31-37) Red Cell Distribution Width 15.9 % (11.5-14.5) Platelet Count 172 x10^3/uL (140-400) Neutrophils (%) (Auto) 54 % (31-73) Lymphocytes (%) (Auto) 21 % (24-48) Monocytes (%) (Auto) 17 % (0-9) Eosinophils (%) (Auto) 7 % (0-3) Basophils (%) (Auto) 1 % (0-3) Neutrophils # (Auto) 2.6 x10^3/uL (1.8-7.7) Lymphocytes # (Auto) 1.0 x10^3/uL (1.0-4.8) Monocytes # (Auto) 0.8 x10^3/uL (0.0-1.1) Eosinophils # (Auto) 0.4 x10^3/uL (0.0-0.7) Basophils # (Auto) 0.1 x10^3/uL (0.0-0.2) Prothrombin Time 24.4 SEC (11.7-14.0) Prothromb Time International Ratio 2.2 (0.8-1.1) Sodium Level 134 mmol/L (136-145) Potassium Level 5.5 mmol/L (3.5-5.1) Chloride Level 98 mmol/L (98-107) Carbon Dioxide Level 26 mmol/L (21-32) Anion Gap 10 (6-14) Blood Urea Nitrogen 53 mg/dL (8-26) Creatinine 8.5 mg/dL (0.7-1.3) Estimated GFR (Cockcroft-Gault) 7.7 Glucose Level 223 mg/dL (70-99) Calcium Level 9.5 mg/dL (8.5-10.1) Magnesium Level 2.4 mg/dL (1.8-2.4) Review of Systems Review of Systems: Reports hunger. Denies fever, chills, or confusion. Assessment and Plan Assessmemt and Plan Assessment: Nonhealing right diabetic foot wound. S/P amputation of first, second, and third toe. ESRD on HD. Severe protein malnutrition. History of DM type 2. History of PVD. History of non-compliance. Plan: Wound care. IV antibiotics. Check labs. DVT prophylaxis. PT/OT. Full code. HD per nephrology. Appreciate subspecialist input. Discharge disposition pending. Possible SNF after discharge in a few days. Comment Review of Relevant I have reviewed the following items keron (where applicable) has been applied. Medications: Current Medications Medications (Trade) Dose Ordered Sig/Raymon Route PRN Reason Start Time Stop Time Status Last Admin Dose Admin Acetaminophen/ Hydrocodone Bitart (Lortab 7.5/325) 1 tab PRN Q4HRS PRN PO MODERATE-SEVERE PAIN 04/26/21 12:30 04/27/21 08:46 Justifications for Admission Other Justification Right foot wound infection JORGE MAN III DO Apr 27, 2021 10:00
[2021-04-27 11:00] VITALS: BP 85/52
[2021-04-27 15:00] VITALS: BP 94/54
[2021-04-27] MEDS ORDERED: WARFARIN 7.5 MG TABLET. PO SCH (16:00)
[2021-04-27] MEDS: CEFEPIME HCL IV Push 1 GM VIAL. IVP SCH (17:37)
[2021-04-27 19:00] VITALS: BP 113/59
[2021-04-27] MEDS: diphenhydrAMINE HCL 25 MG CAPSULE PO PRN (21:18)
[2021-04-27] MEDS: INSULIN GLARGINE SYRINGE. SQ SCH (21:23)
[2021-04-27 22:55] VITALS: BP 108/58
[2021-04-28 03:00] VITALS: BP 106/58
[2021-04-28 04:35] LABS: PROTHROMBIN TIME PATIENT 24.9 SEC (11.7-14.0)
[2021-04-28 04:50] LABS: ALBUMIN 2.6 g/dL (3.4-5.0); ALBUMIN/GLOBULIN RATIO 0.6 (1.0-1.7); CALCIUM 9.9 mg/dL (8.5-10.1); GFR 6.3; POTASSIUM 5.9 mmol/L (3.5-5.1); TOTAL BILIRUBIN 0.2 mg/dL (0.2-1.0); TOTAL PROTEIN 7.3 g/dL (6.4-8.2)
[2021-04-28 07:00] VITALS: BP 124/65
[2021-04-28] MEDS ORDERED: DIALYSIS PATIENT. MC PRN ×2 (08:00)
[2021-04-28] MEDS ORDERED: ALBUMIN HUMAN 25% 200 ML IV PRN (08:00)
[2021-04-28] MEDS ORDERED: IV NORMAL SALINE 1000ML BAG 1,000 ML IV PRN ×2 (08:00)
[2021-04-28] MEDS ORDERED: diphenhydrAMINE 50 MG/ML VIAL IV PRN ×2 (08:00)
[2021-04-28] MEDS ORDERED: LIDOCAINE 1% PF 2 ML VIAL. INJ PRN (08:00)
[2021-04-28] MEDS ORDERED: LIDOCAINE 2% TOPICAL JELLY 5GM TUBE. TP PRN (08:15)
--- NOTE | 2021-04-28 08:30 | NUR ---
refused lidocaine cream to shunt. states he has taht at home and doesnt work
--- NOTE | 2021-04-28 08:42 | PDOC ---
PROGRESS NOTES Date of Service: DATE: 04/28/21 TIME: 08:42 Chief Complaint Chief Complaint impression 04-28 Nonhealing right diabetic foot wound. S/P amputation of first, second, and third toe. ESRD on HD. Severe protein malnutrition. hyperkalemia k=5.9 Continue Vanco and Cefepime,renal dosing, Wound/VAC care as directed by wound team Encouraged for wound VAC, patient says it does not work for him Pros and cons discussed Monitor lab Supportive care pt wants to go to rehab ok to d/c per ID, AWAIT RENAL DIALYSIS TODAY need leg elevation antibiotics changed to po augmentin D/C PLANNING 34 MIN poor prognosis DUE TO NONCOMPLIANCE History of Present Illness History of Present Illness 66-year-old male who comes in because of a nonhealing right foot wound. Patient had amputation of his right foot digits in February 2021. He states that he has been through several nursing facilities and feels that he gets dumped somewhere else because he does not meet criteria for the nursing facility. He was actually supposed to be on vancomycin and cefepime for outpatient IV infusion and he was sent home with home health with a wound VAC. He states that he could not wear the wound VAC because it was too cumbersome for him to move around so he has not been using it for the last 3 weeks. Patient denies any fevers, chest pain, abdominal pain, dysuria, diarrhea or bloody stools. Does not report any active bleeding from the wound or extreme pain. He does not notice any foul smelling odor seeping from his surgical site. 04/25/2021 No acute events overnight. Pain is well controlled. Patient is heading to the dialysis for today. Continue with wound care and IV antibiotics. Pending evaluation from ID. Patient's chart, labs, images were reviewed and discussed with RN. 04/26/2021 Patient seen and examined at bedside. D/W RN. Chart reviewed. Patient is sitting upright eating breakfast. 04/27/2021 Patient seen and examined at bedside. D/W RN. Chart reviewed. Patient is sitting upright preparing to eat breakfast. He says he is hungry. Discussed possible need for wound vac. Patient is reluctant to start wound vac. Wound care team to follow patient. Vitals Vitals Vital Signs Date Time Temp Pulse Resp B/P (MAP) Pulse Ox O2 Delivery O2 Flow Rate FiO2 04/28/21 07:00 72 18 124/65 (84) 97 Room Air 04/28/21 03:00 98.0 98.0 Physical Exam Physical Exam GENERAL: Alert, oriented x 3 male, in no acute distress. NAD HEENT: Normocephalic, atraumatic. Conjunctivae are clear. Oropharynx is clear. NECK: Supple. LUNGS: Clear bilaterally. No accessory muscle use. HEART: S1, S2. No murmurs. ABDOMEN: Soft, nontender, nondistended. Bowel sounds present. EXTREMITIES: Right foot wound dressing in place, dry not taken down DERMATOLOGIC: Warm, dry skin. No generalized rash. NEUROLOGIC: Alert, oriented x 3, grossly nonfocal. PSYCHIATRIC: Cooperative, calm. ACCESS: Right upper arm AV fistula clean. General: Alert, Oriented X3, Cooperative Lungs: Clear Abdomen: Soft Extremities: No cyanosis, No edema, Other (Right foot nonhealing wound infection) Labs LABS . 01 Clinical history: . HYPERKALEMIA,ESRD,R GREAT GANGRENE RIGHT FIRST TOE AMPUTATION . 02 Diagnosis: Right first toe amputation: - Gangrenous necrosis and ulceration of skin of distal toe with acute cellulitis and acute osteomyelitis. - Proximal amputation margin negative for acute cellulitis/osteomyelitis. (EMMA:jose juan; 03/05/2021) MBCyndi 03/05/2021 1710 Local . 02 Electronically signed: . It helps to think and talk about your own wishes for healthcare in case youre ever not able to tell your loved ones or healthcare team what your wishes are. If you became really sick tomorrow, would your loved ones or healthcare team know what your wishes were? Here are some examples of different sets of goals and health care directives for your conversations: My wish is to use all medical therapies including resuscitation (such as CPR) and artificial life- sustaining treatments (such as machines and medicine) in an intensive care unit, to keep me alive if at all possible. My wish is to live as long as possible, but I dont want attempts to bring me back to life if my heart and breathing stop. I would like full medical care but without using resuscitation or artificial life-sustaining intensive treatments, if these are unlikely to make me live longer or restore me to a certain quality of life. I will accept treatments that try to fix medical problems, but if Im not getting better or going to have a certain quality of life, I would want to switch to focusing only on my comfort and letting my happen naturally. My wish is for healthcare to focus on my comfort and lessen suffering. I would like medical care that focuses only on my quality of life and that allows me to naturally. Consider: What does a good quality of life mean for me? For many people, it is the ability to live independently and tell their own story. I may define it differently. Under what circumstances would I not want to be kept alive by medical treatments, resuscitation, or intensive care? What kind of changes to my health or life might make me change my mind? If I clearly am facing the last chapter of my life, how do I want the story to end? Who do I want to speak for me if I cant speak for myself? Do they understand my preferences? Are they willing to assume the role of my Durable Power of Oxygen Equipment Preparer? Can I change my Goals of Care Designation? Yes, your Goals of Care Designation can be changed at any time. It should be reviewed if: your health condition changes your circumstances change (such as new understanding) you are transferred or admitted to another healthcare setting dpoa review, to pt portal 17 min and question review Laboratory Tests Test 04/27/21 12:04 04/27/21 16:38 04/27/21 21:12 04/28/21 03:40 Glucose (Fingerstick) 135 mg/dL (70-99) 151 mg/dL (70-99) 132 mg/dL (70-99) Prothrombin Time 24.9 SEC (11.7-14.0) Prothromb Time International Ratio 2.3 (0.8-1.1) Sodium Level 135 mmol/L (136-145) Potassium Level 5.9 mmol/L (3.5-5.1) Chloride Level 101 mmol/L (98-107) Carbon Dioxide Level 25 mmol/L (21-32) Anion Gap 9 (6-14) Blood Urea Nitrogen 69 mg/dL (8-26) Creatinine 10.0 mg/dL (0.7-1.3) Estimated GFR (Cockcroft-Gault) 6.3 BUN/Creatinine Ratio 7 (6-20) Glucose Level 254 mg/dL (70-99) Calcium Level 9.9 mg/dL (8.5-10.1) Total Bilirubin 0.2 mg/dL (0.2-1.0) Aspartate Amino Transf (AST/SGOT) 16 U/L (15-37) Alanine Aminotransferase (ALT/SGPT) 18 U/L (16-63) Alkaline Phosphatase 57 U/L (46-116) Total Protein 7.3 g/dL (6.4-8.2) Albumin 2.6 g/dL (3.4-5.0) Albumin/Globulin Ratio 0.6 (1.0-1.7) Test 04/28/21 07:17 Glucose (Fingerstick) 204 mg/dL (70-99) Comment Review of Relevant I have reviewed the following items keron (where applicable) has been applied. Labs Laboratory Tests Test 04/26/21 12:07 04/26/21 17:11 04/26/21 20:30 04/27/21 07:10 Glucose (Fingerstick) 151 mg/dL (70-99) 76 mg/dL (70-99) 230 mg/dL (70-99) White Blood Count 4.8 x10^3/uL (4.0-11.0) Red Blood Count 3.50 x10^6/uL (4.30-5.70) Hemoglobin 9.6 g/dL (13.0-17.5) Hematocrit 29.8 % (39.0-53.0) Mean Corpuscular Volume 85 fL (79-100) Mean Corpuscular Hemoglobin 27 pg (25-35) Mean Corpuscular Hemoglobin Concent 32 g/dL (31-37) Red Cell Distribution Width 15.9 % (11.5-14.5) Platelet Count 172 x10^3/uL (140-400) Neutrophils (%) (Auto) 54 % (31-73) Lymphocytes (%) (Auto) 21 % (24-48) Monocytes (%) (Auto) 17 % (0-9) Eosinophils (%) (Auto) 7 % (0-3) Basophils (%) (Auto) 1 % (0-3) Neutrophils # (Auto) 2.6 x10^3/uL (1.8-7.7) Lymphocytes # (Auto) 1.0 x10^3/uL (1.0-4.8) Monocytes # (Auto) 0.8 x10^3/uL (0.0-1.1) Eosinophils # (Auto) 0.4 x10^3/uL (0.0-0.7) Basophils # (Auto) 0.1 x10^3/uL (0.0-0.2) Prothrombin Time 24.4 SEC (11.7-14.0) Prothromb Time International Ratio 2.2 (0.8-1.1) Sodium Level 134 mmol/L (136-145) Potassium Level 5.5 mmol/L (3.5-5.1) Chloride Level 98 mmol/L (98-107) Carbon Dioxide Level 26 mmol/L (21-32) Anion Gap 10 (6-14) Blood Urea Nitrogen 53 mg/dL (8-26) Creatinine 8.5 mg/dL (0.7-1.3) Estimated GFR (Cockcroft-Gault) 7.7 Glucose Level 223 mg/dL (70-99) Calcium Level 9.5 mg/dL (8.5-10.1) Magnesium Level 2.4 mg/dL (1.8-2.4) Test 04/27/21 12:04 04/27/21 16:38 04/27/21 21:12 04/28/21 03:40 Glucose (Fingerstick) 135 mg/dL (70-99) 151 mg/dL (70-99) 132 mg/dL (70-99) Prothrombin Time 24.9 SEC (11.7-14.0) Prothromb Time International Ratio 2.3 (0.8-1.1) Sodium Level 135 mmol/L (136-145) Potassium Level 5.9 mmol/L (3.5-5.1) Chloride Level 101 mmol/L (98-107) Carbon Dioxide Level 25 mmol/L (21-32) Anion Gap 9 (6-14) Blood Urea Nitrogen 69 mg/dL (8-26) Creatinine 10.0 mg/dL (0.7-1.3) Estimated GFR (Cockcroft-Gault) 6.3 BUN/Creatinine Ratio 7 (6-20) Glucose Level 254 mg/dL (70-99) Calcium Level 9.9 mg/dL (8.5-10.1) Total Bilirubin 0.2 mg/dL (0.2-1.0) Aspartate Amino Transf (AST/SGOT) 16 U/L (15-37) Alanine Aminotransferase (ALT/SGPT) 18 U/L (16-63) Alkaline Phosphatase 57 U/L (46-116) Total Protein 7.3 g/dL (6.4-8.2) Albumin 2.6 g/dL (3.4-5.0) Albumin/Globulin Ratio 0.6 (1.0-1.7) Test 04/28/21 07:17 Glucose (Fingerstick) 204 mg/dL (70-99) Laboratory Tests Test 04/27/21 12:04 04/27/21 16:38 04/27/21 21:12 04/28/21 03:40 Glucose (Fingerstick) 135 mg/dL (70-99) 151 mg/dL (70-99) 132 mg/dL (70-99) Prothrombin Time 24.9 SEC (11.7-14.0) Prothromb Time International Ratio 2.3 (0.8-1.1) Sodium Level 135 mmol/L (136-145) Potassium Level 5.9 mmol/L (3.5-5.1) Chloride Level 101 mmol/L (98-107) Carbon Dioxide Level 25 mmol/L (21-32) Anion Gap 9 (6-14) Blood Urea Nitrogen 69 mg/dL (8-26) Creatinine 10.0 mg/dL (0.7-1.3) Estimated GFR (Cockcroft-Gault) 6.3 BUN/Creatinine Ratio 7 (6-20) Glucose Level 254 mg/dL (70-99) Calcium Level 9.9 mg/dL (8.5-10.1) Total Bilirubin 0.2 mg/dL (0.2-1.0) Aspartate Amino Transf (AST/SGOT) 16 U/L (15-37) Alanine Aminotransferase (ALT/SGPT) 18 U/L (16-63) Alkaline Phosphatase 57 U/L (46-116) Total Protein 7.3 g/dL (6.4-8.2) Albumin 2.6 g/dL (3.4-5.0) Albumin/Globulin Ratio 0.6 (1.0-1.7) Test 04/28/21 07:17 Glucose (Fingerstick) 204 mg/dL (70-99) Medications Current Medications Acetaminophen (Tylenol) 650 mg PRN Q4HRS PRN PO TEMP OVER 100.4F OR MILD PAIN; Start 04/24/21 at 02:00; Stop 04/24/21 at 14:06; Status DC Insulin Glargine (Lantus Syringe) 22 unit QHS SQ ; Start 04/24/21 at 21:00; Stop 04/24/21 at 08:09; Status DC Insulin Human Lispro (HumaLOG) 0-5 UNITS TIDWMEALS SQ Last administered on 04/24/21at 09:15; Start 04/24/21 at 08:00; Stop 04/24/21 at 14:07; Status DC Dextrose (Dextrose 50%-Water Syringe) 12.5 gm PRN Q15MIN PRN IV SEE COMMENTS; Start 04/24/21 at 02:00; Stop 04/24/21 at 14:06; Status DC Insulin Human Lispro (HumaLOG) 12 units TIDWMEALS SQ Last administered on 04/27/21at 17:43; Start 04/24/21 at 08:00 Morphine Sulfate (Morphine Sulfate) 2 mg PRN Q2HR PRN IVP SEVERE PAIN 7-10 Last administered on 04/26/21at 15:31; Start 04/24/21 at 02:00 Amlodipine Besylate (Norvasc) 10 mg DAILY PO Last administered on 04/27/21 08:46; Start 04/24/21 at 09:00 Vitamin B Complex/ Vitamin C (Tiffani-Rakesh) 1 tab DAILY PO Last administered on 04/27/21 08:45; Start 04/24/21 at 09:00 Furosemide (Lasix) 80 mg DAILY PO Last administered on 04/27/21 08:46; Start 04/24/21 at 09:00 Gabapentin (Neurontin) 300 mg TID PO Last administered on 04/27/21 21:17; Start 04/24/21 at 09:00 Acetaminophen/ Hydrocodone Bitart (Lortab 5/325) 1 tab PRN Q4HRS PRN PO MODERATE PAIN, SEVERE PAIN Last administered on 04/26/21 10:18; Start 04/24/21 at 08:15; Stop 04/26/21 at 12:33; Status DC Sennosides (Senna) 17.2 mg PRN BID PRN PO CONSTIPATION; Start 04/24/21 at 08:15; Stop 04/24/21 at 14:44; Status DC Warfarin Sodium (Coumadin) 5 mg [id number] PO Last administered on 04/26/21 15:30; Start 04/24/21 at 16:00 Warfarin Sodium (Coumadin) 7.5 mg QSU PO Last administered on 04/27/21 17:37; Start 04/27/21 at 16:00 Insulin Glargine (Lantus Syringe) 22 unit QHS SQ Last administered on 04/27/21 21:23; Start 04/24/21 at 21:00 Non-Formulary Medication ([CEFEPIME HCL IV Push] ) 3 gm QODAY IVP ; Start 04/24/21 at 09:00; Status UNV Vancomycin HCl (Vanco Per Pharmacy) 1 each PRN DAILY PRN MC SEE COMMENTS Last administered on 04/25/21 09:25; Start 04/24/21 at 10:30 Cefepime HCl (Maxipime) 1 gm Q24H IVP Last administered on 04/27/21 17:37; Start 04/24/21 at 16:00 Warfarin Sodium (Coumadin Per Physician) 1 each PRN DAILY PRN MC SEE COMMENTS Last administered on 04/27/21at 15:50; Start 04/24/21 at 12:00 Sennosides (Senna) 17.2 mg PRN BID PRN PO CONSTIPATION; Start 04/24/21 at 14:00 Docusate Sodium (Colace) 100 mg PRN DAILY PRN PO HARD STOOLS; Start 04/24/21 at 14:00 Ondansetron HCl (Zofran) 4 mg PRN Q6HRS PRN IVP NAUSEA/VOMITING, 1ST CHOICE; Start 04/24/21 at 14:00 Insulin Human Lispro (HumaLOG) 0-5 UNITS TIDWMEALS SQ Last administered on 04/27/21at 08:52; Start 04/24/21 at 17:00 Dextrose (Dextrose 50%-Water Syringe) 12.5 gm PRN Q15MIN PRN IV SEE COMMENTS; Start 04/24/21 at 14:00 Acetaminophen (Tylenol) 650 mg PRN Q4HRS PRN PO TEMP OVER 100.4F OR MILD PAIN; Start 04/24/21 at 14:00 Heparin Sodium (Porcine) (Heparin Sodium) 5,000 unit Q12HR SQ ; Start 04/24/21 at 21:00; Status UNV Prochlorperazine Edisylate (Compazine) 10 mg PRN Q6HRS PRN IV NAUSEA/VOMITING, 2ND CHOICE; Start 04/24/21 at 14:00 Vancomycin HCl 500 mg/Sodium Chloride 100 ml @ 100 mls/hr QMWF IV Last administered on 04/25/21at 17:04; Start 04/25/21 at 16:00 Vancomycin HCl (Vancomycin Random Level) 1 each 1X ONCE MC Last administered on 04/25/21at 05:36; Start 04/25/21 at 06:00; Stop 04/25/21 at 06:01; Status DC Zolpidem Tartrate (Ambien) 5 mg PRN QHS PRN PO INSOMNIA Last administered on 04/24/21at 21:56; Start 04/24/21 at 21:45 Lactobacillus Rhamnosus (Culturelle) 1 cap BID PO Last administered on 04/27/21at 21:17; Start 04/25/21 at 09:00 Sodium Chloride 1,000 ml @ 1,000 mls/hr Q1H PRN IV hypotension; Start 04/25/21 at 08:45; Stop 04/25/21 at 14:44; Status DC Albumin Human 200 ml @ 200 mls/hr 1X PRN PRN IV Hypotension; Start 04/25/21 at 08:45; Stop 04/25/21 at 14:44; Status DC Diphenhydramine HCl (Benadryl) 25 mg 1X PRN PRN IV ITCHING Last administered on 04/25/21at 09:50; Start 04/25/21 at 08:45; Stop 04/26/21 at 08:44; Status DC Diphenhydramine HCl (Benadryl) 25 mg 1X PRN PRN IV ITCHING; Start 04/25/21 at 0 8:45; Stop 04/26/21 at 08:44; Status DC Sodium Chloride 1,000 ml @ 400 mls/hr Q2H30M PRN IV PATENCY; Start 04/25/21 at 08:45; Stop 04/25/21 at 20:44; Status DC Lidocaine HCl (Xylocaine-Mpf 1% 2ml Vial) 2 ml 1X PRN PRN INJ FOR DIALYSIS Last administered on 04/25/21at 09:00; Start 04/25/21 at 08:45; Stop 04/26/21 at 08:44; Status DC Info (PHARMACY MONITORING -- do not chart) 1 each PRN DAILY PRN MC SEE COMMENTS; Start 04/25/21 at 08:45; Status Cancel Info (PHARMACY MONITORING -- do not chart) 1 each PRN DAILY PRN MC SEE COMMENTS; Start 04/25/21 at 08:45; Status Cancel Acetaminophen/ Hydrocodone Bitart (Lortab 7.5/325) 1 tab PRN Q4HRS PRN PO MODERATE-SEVERE PAIN Last administered on 04/27/21at 21:37; Start 04/26/21 at 12:30 Diphenhydramine HCl (Benadryl) 50 mg PRN QHS PRN PO INSOMNIA Last administered on 04/27/21at 21:18; Start 04/27/21 at 11:00 Sodium Chloride 1,000 ml @ 1,000 mls/hr Q1H PRN IV hypotension; Start 04/28/21 at 08:00; Stop 04/28/21 at 13:59 Albumin Human 200 ml @ 200 mls/hr 1X PRN PRN IV Hypotension; Start 04/28/21 at 08:00; Stop 04/28/21 at 13:59 Diphenhydramine HCl (Benadryl) 25 mg 1X PRN PRN IV ITCHING; Start 04/28/21 at 08:00; Stop 04/29/21 at 07:59 Diphenhydramine HCl (Benadryl) 25 mg 1X PRN PRN IV ITCHING; Start 04/28/21 at 08:00; Stop 04/29/21 at 07:59 Sodium Chloride 1,000 ml @ 400 mls/hr Q2H30M PRN IV PATENCY; Start 04/28/21 at 08:00; Stop 04/28/21 at 19:59 Lidocaine HCl (Xylocaine-Mpf 1% 2ml Vial) 2 ml 1X PRN PRN INJ FOR DIALYSIS; Start 04/28/21 at 08:00; Stop 04/29/21 at 07:59 Info (PHARMACY MONITORING -- do not chart) 1 each PRN DAILY PRN MC SEE COMMENTS; Start 04/28/21 at 08:00; Status UNV Info (PHARMACY MONITORING -- do not chart) 1 each PRN DAILY PRN MC SEE COMMENTS; Start 04/28/21 at 08:00 Lidocaine HCl (Xylocaine 2% Topical 5gm Tube) 1 danisha 1X PRN TP PRIOR TO PROCEDURE; Start 04/28/21 at 08:15 Active Scripts Active [Cefepime Hcl] 1 GM Vial 3 Gm IVP QODAY to be dosed at dialysis MWF Culturelle (Lactobacillus Rhamnosus Gg) 1 Each Cap.sprink 1 Cap PO BID Acetaminophen 325 Mg Tablet 650 Mg PO DAILY PRN Percocet 5-325 Mg Tablet (Oxycodone/Acetaminophen) 1 Each Tablet 1 Tab PO PRN Q4HRS PRN Senna Lax (Sennosides) 8.6 Mg Tablet 17.2 Mg PO PRN BID PRN Dok (Docusate Sodium) 100 Mg Capsule 100 Mg PO DAILY [Vancomycin Per Pharmacy] 1 EACH Each 1 Each MC PRN DAILY PRN at dialysis Hydrocodone-Acetamin 5-325 mg (Hydrocodone/Acetaminophen) 1 Each Tablet 1 Each PO Q4HRS PRN 5 Days Gabapentin 300 Mg Capsule 300 Mg PO TID MDD 1 Amlodipine Besylate 10 Mg Tablet 10 Mg PO DAILY MDD 1 Reported Tums (Calcium Carbonate) 200 Mg Tab.chew 600 Mg PO HS Furosemide 80 Mg Tablet 1 Tab PO DAILY Nephro-Rakesh Tablet (Folic Acid/Vitamin B Comp W-C) 0.8 Mg Tablet 1 Tab PO DAILY Warfarin Sodium 7.5 Mg Tablet 7.5 Mg PO QSU Lantus Solostar (Insulin Glargine,Hum.rec.anlog) 100 Unit/1 Ml Insuln.pen 22 Unit SQ QHS Warfarin Sodium 5 Mg Tablet 1 Tab PO QMTUWTHSA Vitals/I & O Vital Sign - Last 24 Hours 04/27/21 04/27/21 04/27/21 04/27/21 08:46 08:46 09:16 11:00 Temp 97.7 97.7 Pulse 85 80 Resp 16 B/P (MAP) 113/63 85/52 (63) Pulse Ox 94 O2 Delivery Room Air Room Air Room Air 04/27/21 04/27/21 04/27/21 04/27/21 13:24 13:54 15:00 17:37 Temp 98.0 98.0 Pulse 75 Resp 16 B/P (MAP) 94/54 (67) Pulse Ox 94 O2 Delivery Room Air Room Air Room Air Room Air 04/27/21 04/27/21 04/27/21 04/27/21 18:07 19:00 20:00 21:37 Temp 98.0 98.0 Pulse 86 Resp 17 20 B/P (MAP) 113/59 (77) Pulse Ox 95 O2 Delivery Room Air Room Air Room Air Room Air 04/27/21 04/27/21 04/28/21 04/28/21 22:07 22:55 03:00 07:00 Temp 98.2 98.0 98.2 98.0 Pulse 79 71 72 Resp 20 18 18 18 B/P (MAP) 108/58 (75) 106/58 (74) 124/65 (84) Pulse Ox 97 98 97 O2 Delivery Room Air Room Air Room Air Room Air Intake and Output 04/27/21 04/27/21 04/28/21 15:00 23:00 07:00 Intake Total 240 ml 300 ml Balance 240 ml 300 ml Nutrition Consultation Dietary Evaluation: Recommendations by RD: Dietary education by RD, Increase Calorie Intake, Protein supplementation Comments: Renal / ADA diet , DBL meats, jazlyn bid education Handouts provided to use at d/c Expected Outcomes/Goals: to meet >75% est nutr needs improved diet compliance Malnutrition Findings: Body Fat Depletion (Non Severe: Mild Depletion Weight Status: Underweight Justicifation of Admission Dx: Justifications for Admission: Justification of Admission Dx: Yes Chronic Renal Failure: Electrolyte Abnormality KACI SANDERS MD Apr 28, 2021 08:42
[2021-04-28] MEDS: FUROSEMIDE 80 MG TABLET. PO SCH (08:45)
[2021-04-28] MEDS: GABAPENTIN 300 MG CAPSULE. PO SCH ×3 (08:45→21:26)
[2021-04-28] MEDS: LACTOBACILLUS RHAMNOSUS GG 1 CAPSULE. PO SCH ×2 (08:45→21:26)
[2021-04-28] MEDS: FOLIC/VIT B COMP W-C (RENAL) TABLET. PO SCH (08:45)
[2021-04-28] MEDS: HYDROcodone/APAP 7.5/325MG 1 TAB TABLET PO PRN ×4 (08:49→22:50)
[2021-04-28] MEDS: INSULIN LISPRO 300 UNITS/3 ML VIAL. SQ SCH ×6 (08:51→18:42)
--- NOTE | 2021-04-28 08:59 | PDOC ---
Infectious Disease Note Subjective Subjective Pt without complaints ROS ROS no n/v/d/sob Vital Sign Vital Signs Vital Signs Date Time Temp Pulse Resp B/P (MAP) Pulse Ox O2 Delivery O2 Flow Rate FiO2 04/28/21 08:49 20 04/28/21 08:48 72 124/65 04/28/21 07:00 97 Room Air 04/28/21 03:00 98.0 98.0 Physical Exam PHYSICAL EXAM GENERAL: Alert, oriented x 3 male, in no acute distress. HEENT: Normocephalic, atraumatic. Conjunctivae are clear. Oropharynx is clear. NECK: Supple. LUNGS: Clear bilaterally. No accessory muscle use. HEART: S1, S2. No murmurs. ABDOMEN: Soft, nontender, nondistended. Bowel sounds present. EXTREMITIES: Right foot wound dressing in place, wound seen, no exposed bone or tendon, healthy tissue, DERMATOLOGIC: Warm, dry skin. No generalized rash. NEUROLOGIC: Alert, oriented x 3, grossly nonfocal. PSYCHIATRIC: Cooperative, calm. ACCESS: Right upper arm AV fistula clean. Labs Lab Laboratory Tests Test 04/27/21 12:04 04/27/21 16:38 04/27/21 21:12 04/28/21 03:40 Glucose (Fingerstick) 135 mg/dL (70-99) 151 mg/dL (70-99) 132 mg/dL (70-99) Prothrombin Time 24.9 SEC (11.7-14.0) Prothromb Time International Ratio 2.3 (0.8-1.1) Sodium Level 135 mmol/L (136-145) Potassium Level 5.9 mmol/L (3.5-5.1) Chloride Level 101 mmol/L (98-107) Carbon Dioxide Level 25 mmol/L (21-32) Anion Gap 9 (6-14) Blood Urea Nitrogen 69 mg/dL (8-26) Creatinine 10.0 mg/dL (0.7-1.3) Estimated GFR (Cockcroft-Gault) 6.3 BUN/Creatinine Ratio 7 (6-20) Glucose Level 254 mg/dL (70-99) Calcium Level 9.9 mg/dL (8.5-10.1) Total Bilirubin 0.2 mg/dL (0.2-1.0) Aspartate Amino Transf (AST/SGOT) 16 U/L (15-37) Alanine Aminotransferase (ALT/SGPT) 18 U/L (16-63) Alkaline Phosphatase 57 U/L (46-116) Total Protein 7.3 g/dL (6.4-8.2) Albumin 2.6 g/dL (3.4-5.0) Albumin/Globulin Ratio 0.6 (1.0-1.7) Test 04/28/21 07:17 Glucose (Fingerstick) 204 mg/dL (70-99) Objective Assessment 1. 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 End-stage renal disease on hemodialysis 3. Noncompliant 4. Diabetes mellitus 5. History of peripheral vascular disease. 6. Atrial fibrillation, on Coumadin. Plan Plan of Care Continue Vanco and Cefepime,renal dosing, had been on the same prior to admission Wound/VAC care as directed by wound team Encouraged for wound VAC, patient says it does not work for him Pros and cons discussed Monitor lab Supportive care pt wants to go to rehab ok to d/c need leg elevation antibiotics changed to po geoin LIZZETH ANDRADE MD Apr 28, 2021 08:58
--- NOTE | 2021-04-28 09:38 | PDOC ---
DATE OF SERVICE DATE: 04/28/21 TIME: 09:38 SUBJECTIVE ROS seen during dialysis, No acute complaints OBJECTIVE Vital Signs Vital Signs Date Time Temp Pulse Resp B/P (MAP) Pulse Ox O2 Delivery O2 Flow Rate FiO2 04/28/21 08:49 20 04/28/21 08:48 72 124/65 04/28/21 08:00 Room Air 04/28/21 07:00 97 04/28/21 03:00 98.0 98.0 I & 0 Intake and Output 04/28/21 07:00 Intake Total 540 ml Balance 540 ml Intake Oral 540 ml # Voids 2 PHYSICAL EXAM Physical Exam GENERAL: no acute distress. HEENT: OM moist NECK: Supple. LUNGS: Clear bilaterally. No accessory muscle use. HEART: S1, S2. No murmurs. ABDOMEN: Soft, nontender, nondistended. Bowel sounds present. EXTREMITIES: Right foot wound dressing in place, DERMATOLOGIC: Warm, dry skin. No generalized rash. NEUROLOGIC: Alert, oriented x 3, grossly nonfocal. PSYCHIATRIC: Cooperative, calm. ACCESS: Right upper arm AV fistula DIAGNOSIS/ASSESSMENT Assessment & Plan ESRD On HD MWF Seen during treatment , tolerating well. Continue as ordered. 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 Noncompliant COPD - stable Chronic diarrhea - stable currently Diabetes mellitus Peripheral neuropathy Hypertension antihypertensives History of DVT, on warfarin therapy History of colorectal cancer - s/p resection H/o hepatitis C - in SVR Anemia On Aranesp COMMENT/RELEVANT DATA Meds Current Medications Medications (Trade) Dose Ordered Sig/Raymon Start Time Stop Time Status Last Admin Dose Admin Acetaminophen (Tylenol) 650 mg PRN Q4HRS PRN 04/24/21 14:00 Acetaminophen/ Hydrocodone Bitart (Lortab 5/325) 1 tab PRN Q4HRS PRN 04/24/21 08:15 04/26/21 12:33 DC 04/26/21 10:18 1 TAB Acetaminophen/ Hydrocodone Bitart (Lortab 7.5/325) 1 tab PRN Q4HRS PRN 04/26/21 12:30 04/28/21 08:49 1 TAB Albumin Human 200 ml @ 200 mls/hr 1X PRN PRN 04/28/21 08:00 04/28/21 13:59 Amlodipine Besylate (Norvasc) 10 mg DAILY 04/24/21 09:00 04/28/21 08:48 10 MG Cefepime HCl (Maxipime) 1 gm Q24H 04/24/21 16:00 04/27/21 17:37 1 GM Dextrose (Dextrose 50%-Water Syringe) 12.5 gm PRN Q15MIN PRN 04/24/21 14:00 Diphenhydramine HCl (Benadryl) 25 mg 1X PRN PRN 04/28/21 08:00 04/29/21 07:59 Docusate Sodium (Colace) 100 mg PRN DAILY PRN 04/24/21 14:00 Furosemide (Lasix) 80 mg DAILY 04/24/21 09:00 04/28/21 08:45 80 MG Gabapentin (Neurontin) 300 mg TID 04/24/21 09:00 04/28/21 08:45 300 MG Heparin Sodium (Porcine) (Heparin Sodium) 5,000 unit Q12HR 04/24/21 21:00 UNV Info (PHARMACY MONITORING -- do not chart) 1 each PRN DAILY PRN 04/28/21 08:00 Insulin Glargine (Lantus Syringe) 22 unit QHS 04/24/21 21:00 04/27/21 21:23 22 UNIT Insulin Human Lispro (HumaLOG) 0-5 UNITS TIDWMEALS 04/24/21 17:00 04/28/21 08:52 3 UNITS Lactobacillus Rhamnosus (Culturelle) 1 cap BID 04/25/21 09:00 04/28/21 08:45 1 CAP Lidocaine HCl (Xylocaine 2% Topical 5gm Tube) 1 danisha 1X PRN 04/28/21 08:15 Lidocaine HCl (Xylocaine-Mpf 1% 2ml Vial) 2 ml 1X PRN PRN 04/28/21 08:00 04/29/21 07:59 Morphine Sulfate (Morphine Sulfate) 2 mg PRN Q2HR PRN 04/24/21 02:00 04/26/21 15:31 2 MG Non-Formulary Medication ([CEFEPIME HCL IV Push] ) 3 gm QODAY 04/24/21 09:00 UNV Ondansetron HCl (Zofran) 4 mg PRN Q6HRS PRN 04/24/21 14:00 Prochlorperazine Edisylate (Compazine) 10 mg PRN Q6HRS PRN 04/24/21 14:00 Sennosides (Senna) 17.2 mg PRN BID PRN 04/24/21 14:00 Sodium Chloride 1,000 ml @ 400 mls/hr Q2H30M PRN 04/28/21 08:00 04/28/21 19:59 Vancomycin HCl (Vanco Per Pharmacy) 1 each PRN DAILY PRN 04/24/21 10:30 04/25/21 09:25 1 EACH Vancomycin HCl (Vancomycin Random Level) 1 each 1X ONCE 04/25/21 06:00 04/25/21 06:01 DC 04/25/21 05:36 1 EACH Vancomycin HCl 500 mg/Sodium Chloride 100 ml @ 100 mls/hr QMWF 04/25/21 16:00 04/25/21 17:04 100 MLS/HR Vitamin B Complex/ Vitamin C (Tiffani-Rakesh) 1 tab DAILY 04/24/21 09:00 04/28/21 08:45 1 TAB Warfarin Sodium (Coumadin Per Physician) 1 each PRN DAILY PRN 04/24/21 12:00 04/27/21 15:50 1 EACH Warfarin Sodium (Coumadin) 7.5 mg QSU 04/27/21 16:00 04/27/21 17:37 7.5 MG Zolpidem Tartrate (Ambien) 5 mg PRN QHS PRN 04/24/21 21:45 04/24/21 21:56 5 MG Lab Laboratory Tests Test 04/27/21 12:04 04/27/21 16:38 04/27/21 21:12 04/28/21 03:40 Glucose (Fingerstick) 135 mg/dL (70-99) 151 mg/dL (70-99) 132 mg/dL (70-99) Prothrombin Time 24.9 SEC (11.7-14.0) Prothromb Time International Ratio 2.3 (0.8-1.1) Sodium Level 135 mmol/L (136-145) Potassium Level 5.9 mmol/L (3.5-5.1) Chloride Level 101 mmol/L (98-107) Carbon Dioxide Level 25 mmol/L (21-32) Anion Gap 9 (6-14) Blood Urea Nitrogen 69 mg/dL (8-26) Creatinine 10.0 mg/dL (0.7-1.3) Estimated GFR (Cockcroft-Gault) 6.3 BUN/Creatinine Ratio 7 (6-20) Glucose Level 254 mg/dL (70-99) Calcium Level 9.9 mg/dL (8.5-10.1) Total Bilirubin 0.2 mg/dL (0.2-1.0) Aspartate Amino Transf (AST/SGOT) 16 U/L (15-37) Alanine Aminotransferase (ALT/SGPT) 18 U/L (16-63) Alkaline Phosphatase 57 U/L (46-116) Total Protein 7.3 g/dL (6.4-8.2) Albumin 2.6 g/dL (3.4-5.0) Albumin/Globulin Ratio 0.6 (1.0-1.7) Test 04/28/21 07:17 Glucose (Fingerstick) 204 mg/dL (70-99) Results All relevant outside records, renal labs, imaging studies, telemetry/EKG's were reviewed. Justicifation of Admission Dx: Justifications for Admission: Justification of Admission Dx: Yes Chronic Renal Failure: Electrolyte Abnormality NNAMDI TESFAYE MD Apr 28, 2021 09:38
--- NOTE | 2021-04-28 09:55 | PDOC3 ---
Discharge Summary Date of Admission: Apr 24, 2021 Date of Discharge: Apr 28, 2021 Follow-Up: 1-2 days Admitting Diagnosis comment: DISCHARGE DX f/u id in one week, nnephrology for dialysis MWF TO SNF TODAY, [facility] CONS[facility] ID, nephrology D/C DIET RENAL LOW CARB Complications severe noncompliance impression 8-02 Nonhealing right diabetic foot wound. S/P amputation of first, second, and third toe. ESRD on HD. Severe protein malnutrition. hyperkalemia k=5.9 PENDING DIALYSIS Continue Vanco and Cefepime,renal dosing, Wound/VAC care as directed by wound team Encouraged for wound VAC, patient says it does not work for him Pros and cons discussed Monitor lab Supportive care pt wants to go to rehab ok to d/c per ID, AWAIT RENAL DIALYSIS TODAY IF OK WITH NEPHROLOGY need leg elevation antibiotics changed to po augmentin PT REFUSED WOUND VAC AMA ESRD ANEMIA HTN DM II S/P R 1ST,2ND AND 3RD AMP FOOT WOUND PATIENT: UMER VANCE ACCOUNT: [id number] : 1955 LOCATION: [address] [place] [address] AGE: 65 SEX: M EXAM STATUS: ADM IN ORD. PHYSICIAN: KACI SANDERS MD REASON: PVD WOUNDS PROCEDURE: DUPLEX LOWER EXTREMITY BILAT EXAM: Bilateral lower extremity arterial Doppler sonogram. HISTORY: Bilateral lower extremity wounds. Peripheral vascular disease. TECHNIQUE: Wilcox scale and color Doppler sonographic imaging of the lower extremity arteries with spectral waveform analysis was performed. COMPARISON: None. FINDINGS: There are biphasic and triphasic waveforms throughout the bilateral lower extremity arteries, with exception of a monophasic waveform within the right dorsalis pedis artery suggesting hemodynamically significant proximal stenosis. There is a mildly elevated peak systolic velocity of 152 cm/s within the mid right superficial femoral artery. There is a moderate to severely elevated peak systolic velocity of 281 cm/s within the proximal left superficial femoral artery. IMPRESSION: 1. Elevated peak systolic velocity within the proximal left superficial femoral artery suggesting moderate to severe stenosis. There is also an elevated peak systolic velocity within the mid right superficial femoral artery suggesting mild stenosis. 2. Abnormal waveform within the right dorsalis pedis artery suggesting hemodynamically significant proximal stenosis. 3. No evidence of arterial occlusion. Electronically signed by: Kiesha Forman MD (01/18/2021 7:09 AM) [id number] DICTATED and SIGNED BY: KIESHA FORMAN MD DATE: 01/18/21 [id number] 0 D/C PLANNING 34 MIN poor prognosis DUE TO NONCOMPLIANCE History of Present Illness History of Present Illness 66-year-old male who comes in because of a nonhealing right foot wound. Patient had amputation of his right foot digits in February 2021. He states that he has been through several nursing facilities and feels that he gets dumped somewhere else because he does not meet criteria for the nursing facility. He was actually supposed to be on vancomycin and cefepime for outpatient IV infusion and he was sent home with home health with a wound VAC. He states that he could not wear the wound VAC because it was too cumbersome for him to move around so he has not been using it for the last 3 weeks. Patient denies any fevers, chest pain, abdominal pain, dysuria, diarrhea or bloody stools. Does not report any active bleeding from the wound or extreme pain. He does not notice any foul smelling odor seeping from his surgical site. 04/25/2021 No acute events overnight. Pain is well controlled. Patient is heading to the dialysis for today. Continue with wound care and IV antibiotics. Pending evaluation from ID. Patient's chart, labs, images were reviewed and discussed with RN. 04/26/2021 Patient seen and examined at bedside. D/W RN. Chart reviewed. Patient is sitting upright eating breakfast. 04/27/2021 Patient seen and examined at bedside. D/W RN. Chart reviewed. Patient is sitting upright preparing to eat breakfast. He says he is hungry. Discussed possible need for wound vac. Patient is reluctant to start wound vac. Wound care team to follow patient. Vitals Vitals Vital Signs Date Time Temp Pulse Resp B/P (MAP) Pulse Ox O2 Delivery O2 Flow Rate FiO2 04/28/21 07:00 72 18 124/65 (84) 97 Room Air 04/28/21 03:00 98.0 98.0 Physical Exam Physical Exam GENERAL: Alert, oriented x 3 male, in no acute distress. NAD HEENT: Normocephalic, atraumatic. Conjunctivae are clear. Oropharynx is clear. NECK: Supple. LUNGS: Clear bilaterally. No accessory muscle use. HEART: S1, S2. No murmurs. ABDOMEN: Soft, nontender, nondistended. Bowel sounds present. EXTREMITIES: Right foot wound dressing in place, dry not taken down DERMATOLOGIC: Warm, dry skin. No generalized rash. NEUROLOGIC: Alert, oriented x 3, grossly nonfocal. PSYCHIATRIC: Cooperative, calm. ACCESS: Right upper arm AV fistula clean. General: Alert, Oriented X3, Cooperative Lungs: Clear Abdomen: Soft Extremities: No cyanosis, No edema, Other (Right foot nonhealing wound infection) Labs LABS . 01 Clinical history: . HYPERKALEMIA,ESRD,R GREAT GANGRENE RIGHT FIRST TOE AMPUTATION . 02 Diagnosis: Right first toe amputation: - Gangrenous necrosis and ulceration of skin of distal toe with acute cellulitis and acute osteomyelitis. - Proximal amputation margin negative for acute cellulitis/osteomyelitis. (NISHAM:jose juan; 03/05/2021) R 03/05/2021 1710 Local PATIENT: UMER VANCE ACCOUNT: [id number] : 1955 LOCATION: ER AGE: 65 SEX: M EXAM STATUS: REG ER ORD. 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 Instructions: / History: INDICATION: Lower extremity pain/swelling TECHNIQUE: Grayscale sonogram, color Doppler, and spectral Doppler waveform analysis of the lower extremity venous system was performed on the right. FINDINGS: The right common femoral, superficial femoral, central greater saphenous, popliteal, posterior tibial and peroneal veins are compressible and demonstrate normal color Doppler flow and normal spontaneous phasic waveforms or normal response to augmentation. The calf veins are difficult to visualize due to subcutaneous edema. IMPRESSION: No evidence of deep venous thrombosis in the right lower extremity. Electronically signed by: Judith Lua MD (03/01/2021 5:19 PM) [facility] DICTATED and SIGNED BY: JUDITH LUA MD DATE: 03/01/21 [id number] 0 Brief Hospital Course Mr. Vance is a 66 old [sex] who presented with [ NONHEALING FOOT WOUND ] CONDITION AT DISCHARGE: Improved Discharge Medications Current Medications Acetaminophen (Tylenol) 650 mg PRN Q4HRS PRN PO TEMP OVER 100.4F OR MILD PAIN; Start 04/24/21 at 02:00; Stop 04/24/21 at 14:06; Status DC Insulin Glargine (Lantus Syringe) 22 unit QHS SQ ; Start 04/24/21 at 21:00; Stop 04/24/21 at 08:09; Status DC Insulin Human Lispro (HumaLOG) 0-5 UNITS TIDWMEALS SQ Last administered on at 09:15; Start 04/24/21 at 08:00; Stop 04/24/21 at 14:07; Status DC Dextrose (Dextrose 50%-Water Syringe) 12.5 gm PRN Q15MIN PRN IV SEE COMMENTS; Start 04/24/21 at 02:00; Stop 04/24/21 at 14:06; Status DC Insulin Human Lispro (HumaLOG) 12 units TIDWMEALS SQ Last administered on 04/28/21at 08:51; Start 04/24/21 at 08:00 Morphine Sulfate (Morphine Sulfate) 2 mg PRN Q2HR PRN IVP SEVERE PAIN 7-10 Last administered on 04/26/21at 15:31; Start 04/24/21 at 02:00 Amlodipine Besylate (Norvasc) 10 mg DAILY PO Last administered on 8/2/21at 08:48; Start 04/24/21 at 09:00 Vitamin B Complex/ Vitamin C (Tiffani-Rakesh) 1 tab DAILY PO Last administered on 04/28/21 08:45; Start 04/24/21 at 09:00 Furosemide (Lasix) 80 mg DAILY PO Last administered on 04/28/21 08:45; Start 04/24/21 at 09:00 Gabapentin (Neurontin) 300 mg TID PO Last administered on 04/28/21 08:45; Start 04/24/21 at 09:00 Acetaminophen/ Hydrocodone Bitart (Lortab 5/325) 1 tab PRN Q4HRS PRN PO MODERATE PAIN, SEVERE PAIN Last administered on 04/26/21 10:18; Start 04/24/21 at 08:15; Stop 04/26/21 at 12:33; Status DC Sennosides (Senna) 17.2 mg PRN BID PRN PO CONSTIPATION; Start 04/24/21 at 08:15; Stop 04/24/21 at 14:44; Status DC Warfarin Sodium (Coumadin) 5 mg [id number] PO Last administered on 04/26/21 15:30; Start 04/24/21 at 16:00 Warfarin Sodium (Coumadin) 7.5 mg QSU PO Last administered on 04/27/21 17:37; Start 04/27/21 at 16:00 Insulin Glargine (Lantus Syringe) 22 unit QHS SQ Last administered on 04/27/21 21:23; Start 04/24/21 at 21:00 Non-Formulary Medication ([CEFEPIME HCL IV Push] ) 3 gm QODAY IVP ; Start 04/24/21 at 09:00; Status UNV Vancomycin HCl (Vanco Per Pharmacy) 1 each PRN DAILY PRN MC SEE COMMENTS Last administered on 04/25/21 09:25; Start 04/24/21 at 10:30 Cefepime HCl (Maxipime) 1 gm Q24H IVP Last administered on 04/27/21 17:37; Start 04/24/21 at 16:00 Warfarin Sodium (Coumadin Per Physician) 1 each PRN DAILY PRN MC SEE COMMENTS Last administered on 04/27/21at 15:50; Start 04/24/21 at 12:00 Sennosides (Senna) 17.2 mg PRN BID PRN PO CONSTIPATION; Start 04/24/21 at 14:00 Docusate Sodium (Colace) 100 mg PRN DAILY PRN PO HARD STOOLS; Start 04/24/21 at 14:00 Ondansetron HCl (Zofran) 4 mg PRN Q6HRS PRN IVP NAUSEA/VOMITING, 1ST CHOICE; Start 04/24/21 at 14:00 Insulin Human Lispro (HumaLOG) 0-5 UNITS TIDWMEALS SQ Last administered on 04/28/21at 08:52; Start 04/24/21 at 17:00 Dextrose (Dextrose 50%-Water Syringe) 12.5 gm PRN Q15MIN PRN IV SEE COMMENTS; Start 04/24/21 at 14:00 Acetaminophen (Tylenol) 650 mg PRN Q4HRS PRN PO TEMP OVER 100.4F OR MILD PAIN; Start 04/24/21 at 14:00 Heparin Sodium (Porcine) (Heparin Sodium) 5,000 unit Q12HR SQ ; Start 04/24/21 at 21:00; Status UNV Prochlorperazine Edisylate (Compazine) 10 mg PRN Q6HRS PRN IV NAUSEA/VOMITING, 2ND CHOICE; Start 04/24/21 at 14:00 Vancomycin HCl 500 mg/Sodium Chloride 100 ml @ 100 mls/hr QMWF IV Last administered on 04/25/21at 17:04; Start 04/25/21 at 16:00 Vancomycin HCl (Vancomycin Random Level) 1 each 1X ONCE MC Last administered on 04/25/21at 05:36; Start 04/25/21 at 06:00; Stop 04/25/21 at 06:01; Status DC Zolpidem Tartrate (Ambien) 5 mg PRN QHS PRN PO INSOMNIA Last administered on 04/24/21at 21:56; Start 04/24/21 at 21:45 Lactobacillus Rhamnosus (Culturelle) 1 cap BID PO Last administered on 04/28/21at 08:45; Start 04/25/21 at 09:00 Sodium Chloride 1,000 ml @ 1,000 mls/hr Q1H PRN IV hypotension; Start 04/25/21 at 08:45; Stop 04/25/21 at 14:44; Status DC Albumin Human 200 ml @ 200 mls/hr 1X PRN PRN IV Hypotension; Start 04/25/21 at 08:45; Stop 04/25/21 at 14:44; Status DC Diphenhydramine HCl (Benadryl) 25 mg 1X PRN PRN IV ITCHING Last administered on 04/25/21at 09:50; Start 04/25/21 at 08:45; Stop 04/26/21 at 08:44; Status DC Diphenhydramine HCl (Benadryl) 25 mg 1X PRN PRN IV ITCHING; Start 04/25/21 at 08:45; Stop 04/26/21 at 08:44; Status DC Sodium Chloride 1,000 ml @ 400 mls/hr Q2H30M PRN IV PATENCY; Start 04/25/21 at 08:45; Stop 04/25/21 at 20:44; Status DC Lidocaine HCl (Xylocaine-Mpf 1% 2ml Vial) 2 ml 1X PRN PRN INJ FOR DIALYSIS Last administered on 04/25/21at 09:00; Start 04/25/21 at 08:45; Stop 04/26/21 at 08:44; Status DC Info (PHARMACY MONITORING -- do not chart) 1 each PRN DAILY PRN MC SEE COMMENTS; Start 04/25/21 at 08:45; Status Cancel Info (PHARMACY MONITORING -- do not chart) 1 each PRN DAILY PRN MC SEE COMMENTS; Start 04/25/21 at 08:45; Status Cancel Acetaminophen/ Hydrocodone Bitart (Lortab 7.5/325) 1 tab PRN Q4HRS PRN PO M ODERATE-SEVERE PAIN Last administered on 04/28/21at 08:49; Start 04/26/21 at 12:30 Diphenhydramine HCl (Benadryl) 50 mg PRN QHS PRN PO INSOMNIA Last administered on 04/27/21at 21:18; Start 04/27/21 at 11:00 Sodium Chloride 1,000 ml @ 1,000 mls/hr Q1H PRN IV hypotension; Start 04/28/21 at 08:00; Stop 04/28/21 at 13:59 Albumin Human 200 ml @ 200 mls/hr 1X PRN PRN IV Hypotension; Start 04/28/21 at 08:00; Stop 04/28/21 at 13:59 Diphenhydramine HCl (Benadryl) 25 mg 1X PRN PRN IV ITCHING; Start 04/28/21 at 08:00; Stop 04/29/21 at 07:59 Diphenhydramine HCl (Benadryl) 25 mg 1X PRN PRN IV ITCHING; Start 04/28/21 at 08:00; Stop 04/29/21 at 07:59 Sodium Chloride 1,000 ml @ 400 mls/hr Q2H30M PRN IV PATENCY; Start 04/28/21 at 08:00; Stop 04/28/21 at 19:59 Lidocaine HCl (Xylocaine-Mpf 1% 2ml Vial) 2 ml 1X PRN PRN INJ FOR DIALYSIS; Start 04/28/21 at 08:00; Stop 04/29/21 at 07:59 Info (PHARMACY MONITORING -- do not chart) 1 each PRN DAILY PRN MC SEE COMMENTS; Start 04/28/21 at 08:00; Status UNV Info (PHARMACY MONITORING -- do not chart) 1 each PRN DAILY PRN MC SEE COMMENTS; Start 04/28/21 at 08:00 Lidocaine HCl (Xylocaine 2% Topical 5gm Tube) 1 danisha 1X PRN TP PRIOR TO PROCEDURE; Start 04/28/21 at 08:15 Active Scripts Active [Cefepime Hcl] 1 GM Vial 3 Gm IVP QODAY to be dosed at dialysis MWF Culturelle (Lactobacillus Rhamnosus Gg) 1 Each Cap.sprink 1 Cap PO BID Acetaminophen 325 Mg Tablet 650 Mg PO DAILY PRN Percocet 5-325 Mg Tablet (Oxycodone/Acetaminophen) 1 Each Tablet 1 Tab PO PRN Q4HRS PRN Senna Lax (Sennosides) 8.6 Mg Tablet 17.2 Mg PO PRN BID PRN Dok (Docusate Sodium) 100 Mg Capsule 100 Mg PO DAILY [Vancomycin Per Pharmacy] 1 EACH Each 1 Each MC PRN DAILY PRN at dialysis Hydrocodone-Acetamin 5-325 mg (Hydrocodone/Acetaminophen) 1 Each Tablet 1 Each PO Q4HRS PRN 5 Days Gabapentin 300 Mg Capsule 300 Mg PO TID MDD 1 Amlodipine Besylate 10 Mg Tablet 10 Mg PO DAILY MDD 1 Reported Tums (Calcium Carbonate) 200 Mg Tab.chew 600 Mg PO HS Furosemide 80 Mg Tablet 1 Tab PO DAILY Nephro-Rakesh Tablet (Folic Acid/Vitamin B Comp W-C) 0.8 Mg Tablet 1 Tab PO DAILY Warfarin Sodium 7.5 Mg Tablet 7.5 Mg PO QSU Lantus Solostar (Insulin Glargine,Hum.rec.anlog) 100 Unit/1 Ml Insuln.pen 22 Unit SQ QHS Warfarin Sodium 5 Mg Tablet 1 Tab PO QMTUWTHSA Vital Signs Vital Signs Date Time Temp Pulse Resp B/P (MAP) Pulse Ox O2 Delivery O2 Flow Rate FiO2 04/28/21 08:49 20 04/28/21 08:48 72 124/65 04/28/21 08:00 Room Air 04/28/21 07:00 97 04/28/21 03:00 98.0 98.0 Labs Laboratory Tests Test 04/26/21 12:07 04/26/21 17:11 04/26/21 20:30 04/27/21 07:10 Glucose (Fingerstick) 151 mg/dL (70-99) 76 mg/dL (70-99) 230 mg/dL (70-99) White Blood Count 4.8 x10^3/uL (4.0-11.0) Red Blood Count 3.50 x10^6/uL (4.30-5.70) Hemoglobin 9.6 g/dL (13.0-17.5) Hematocrit 29.8 % (39.0-53.0) Mean Corpuscular Volume 85 fL (79-100) Mean Corpuscular Hemoglobin 27 pg (25-35) Mean Corpuscular Hemoglobin Concent 32 g/dL (31-37) Red Cell Distribution Width 15.9 % (11.5-14.5) Platelet Count 172 x10^3/uL (140-400) Neutrophils (%) (Auto) 54 % (31-73) Lymphocytes (%) (Auto) 21 % (24-48) Monocytes (%) (Auto) 17 % (0-9) Eosinophils (%) (Auto) 7 % (0-3) Basophils (%) (Auto) 1 % (0-3) Neutrophils # (Auto) 2.6 x10^3/uL (1.8-7.7) Lymphocytes # (Auto) 1.0 x10^3/uL (1.0-4.8) Monocytes # (Auto) 0.8 x10^3/uL (0.0-1.1) Eosinophils # (Auto) 0.4 x10^3/uL (0.0-0.7) Basophils # (Auto) 0.1 x10^3/uL (0.0-0.2) Prothrombin Time 24.4 SEC (11.7-14.0) Prothromb Time International Ratio 2.2 (0.8-1.1) Sodium Level 134 mmol/L (136-145) Potassium Level 5.5 mmol/L (3.5-5.1) Chloride Level 98 mmol/L (98-107) Carbon Dioxide Level 26 mmol/L (21-32) Anion Gap 10 (6-14) Blood Urea Nitrogen 53 mg/dL (8-26) Creatinine 8.5 mg/dL (0.7-1.3) Estimated GFR (Cockcroft-Gault) 7.7 Glucose Level 223 mg/dL (70-99) Calcium Level 9.5 mg/dL (8.5-10.1) Magnesium Level 2.4 mg/dL (1.8-2.4) Test 04/27/21 12:04 04/27/21 16:38 04/27/21 21:12 04/28/21 03:40 Glucose (Fingerstick) 135 mg/dL (70-99) 151 mg/dL (70-99) 132 mg/dL (70-99) Prothrombin Time 24.9 SEC (11.7-14.0) Prothromb Time International Ratio 2.3 (0.8-1.1) Sodium Level 135 mmol/L (136-145) Potassium Level 5.9 mmol/L (3.5-5.1) Chloride Level 101 mmol/L (98-107) Carbon Dioxide Level 25 mmol/L (21-32) Anion Gap 9 (6-14) Blood Urea Nitrogen 69 mg/dL (8-26) Creatinine 10.0 mg/dL (0.7-1.3) Estimated GFR (Cockcroft-Gault) 6.3 BUN/Creatinine Ratio 7 (6-20) Glucose Level 254 mg/dL (70-99) Calcium Level 9.9 mg/dL (8.5-10.1) Total Bilirubin 0.2 mg/dL (0.2-1.0) Aspartate Amino Transf (AST/SGOT) 16 U/L (15-37) Alanine Aminotransferase (ALT/SGPT) 18 U/L (16-63) Alkaline Phosphatase 57 U/L (46-116) Total Protein 7.3 g/dL (6.4-8.2) Albumin 2.6 g/dL (3.4-5.0) Albumin/Globulin Ratio 0.6 (1.0-1.7) Test 04/28/21 07:17 Glucose (Fingerstick) 204 mg/dL (70-99) Laboratory Tests Test 04/27/21 12:04 04/27/21 16:38 04/27/21 21:12 04/28/21 03:40 Glucose (Fingerstick) 135 mg/dL (70-99) 151 mg/dL (70-99) 132 mg/dL (70-99) Prothrombin Time 24.9 SEC (11.7-14.0) Prothromb Time International Ratio 2.3 (0.8-1.1) Sodium Level 135 mmol/L (136-145) Potassium Level 5.9 mmol/L (3.5-5.1) Chloride Level 101 mmol/L (98-107) Carbon Dioxide Level 25 mmol/L (21-32) Anion Gap 9 (6-14) Blood Urea Nitrogen 69 mg/dL (8-26) Creatinine 10.0 mg/dL (0.7-1.3) Estimated GFR (Cockcroft-Gault) 6.3 BUN/Creatinine Ratio 7 (6-20) Glucose Level 254 mg/dL (70-99) Calcium Level 9.9 mg/dL (8.5-10.1) Total Bilirubin 0.2 mg/dL (0.2-1.0) Aspartate Amino Transf (AST/SGOT) 16 U/L (15-37) Alanine Aminotransferase (ALT/SGPT) 18 U/L (16-63) Alkaline Phosphatase 57 U/L (46-116) Total Protein 7.3 g/dL (6.4-8.2) Albumin 2.6 g/dL (3.4-5.0) Albumin/Globulin Ratio 0.6 (1.0-1.7) Test 04/28/21 07:17 Glucose (Fingerstick) 204 mg/dL (70-99) Allergies Allergies Coded Allergies Type Severity Reaction Last Updated Verified prednisone Allergy Intermediate 01/29/21 Yes Disposition/Orders: Other (D/C TO SNF ) Justicifation of Admission Dx: Justifications for Admission: Justification of Admission Dx: Yes Chronic Renal Failure: Electrolyte Abnormality KACI SANDERS MD Apr 28, 2021 09:55
[2021-04-28] MEDS ORDERED: AMOX1TAB61 PO (10:05)
[2021-04-28] MEDS ORDERED: INSU100V35 SQ (10:05)
[2021-04-28] MEDS ORDERED: LIDO5JEL3 TP (10:05)
[2021-04-28] MEDS ORDERED: DIPH25CA23 PO (10:05)
--- NOTE | 2021-04-28 10:07 | SNU/HH DC ---
DISCHARGE ORDERS DISCHARGE INFORMATION: DISCHARGE DATE: Apr 28, 2021 CONDITION ON DISCHARGE: Stable CODE STATUS: Code Status: Full PENITENTIARY: SNF STAY <30 DAYS: Yes HOSPICE: HOSPICE: No HOSPICE EVAL & TREAT: No LTAC: ADMIT TO LTAC: No POST DISCHARGE ORDERS: ACTIVITY ORDERS: Activity as tolerated WEIGHT BEARING STATUS: Non weight bearing BATHING ORDERS: Shower-keep dressing dry DIET AFTER DISCHARGE: Renal WOUND/INCISION CARE: Other, see below CHECKS AFTER DISCHARGE: CHECKS AFTER DISCHARGE: Check blood press - daily, Check blood sugar, ac/hs, Check your Temp as needed, Weigh Yourself Daily FOLLOW-UP: PHYSICIAN FOLLOW-UP: DR ANDRADE ONE WEEK, VASCULAR SURGERY 7-10 DAYS, NEPHROLOGY MWF LAB ORDERS FOR FOLLOW-UP: CBC, CMP ESR, TWICE A WEEK ANTICOAGULATION F/U NEEDED: DAILY INR X 4 DAYS TREATMENT/EQUIPMENT ORDERS: ADAPTIVE EQUIPMENT NEEDED: Front wheeled walker Physical Therapy For: Evalulation/Treatment Occupational Therapy For: Evaluation/Treatment DISCHARGE MEDICATIONS: Home Meds Active Scripts Amoxicillin/Potassium Clav (AUGMENTIN 875-125 TABLET) 1 Each Tablet, 1 TAB PO BID for INFECTION for 21 Days, #42 TAB 0 Refills Prov:KACI SANDERS MD 04/28/21 Insulin Lispro (Admelog) 100 Unit/1 Ml Vial, 12 UNITS SQ TIDWMEALS for DIABETES for 30 Days, #2 EACH Prov:KACI SANDERS MD 04/28/21 Insulin Lispro (Admelog) 100 Unit/1 Ml Vial, 0 UNITS SQ TIDWMEALS for PER PROTOCOL for 30 Days, #1 EACH Prov:KACI SANDERS MD 04/28/21 Lidocaine Hcl (LIDOCAINE HCL) 5 Ml Jel..ml., 1 DORCAS TP 1X PRN for PRIOR TO PROCEDURE for 14 Days, #30 MISC Prov:KACI SANDERS MD 04/28/21 Diphenhydramine Hcl (DIPHENHYDRAMINE HCL) 25 Mg Capsule, 50 MG PO PRN QHS PRN for INSOMNIA for 30 Days, #14 CAP Prov:KACI SANDERS MD 04/28/21 Lactobacillus Rhamnosus Gg (CULTURELLE) 1 Each Cap.sprink, 1 CAP PO BID for gut health on antibiotics, #30 CAP Prov:ERVIN BOOGIE MD 6/10/21 Acetaminophen (ACETAMINOPHEN) 325 Mg Tablet, 650 MG PO DAILY PRN for PAIN, #30 TAB Prov:ERVIN BOOGIE MD 03/06/21 Sennosides (SENNA LAX) 8.6 Mg Tablet, 17.2 MG PO PRN BID PRN for CONSTIPATION, #30 TAB Prov:ERVIN BOOGIE MD 03/06/21 Docusate Sodium (DOK) 100 Mg Capsule, 100 MG PO DAILY for prevent constipation, #30 CAP Prov:ERVIN BOOGIE MD 03/06/21 [Vancomycin Per Pharmacy] 1 EACH EACH No Conflict Check, 1 EACH MC PRN DAILY PRN for SEE COMMENTS at dialysis Prov:ERVIN BOOGIE MD 03/06/21 Hydrocodone/Acetaminophen (Hydrocodone-Acetamin 5-325 mg) 1 Each Tablet, 1 EACH PO Q4HRS PRN for PAIN for 5 Days, #20 TAB Prov:LEBRON DOVER TRIMMER HAND 01/29/21 Gabapentin (GABAPENTIN) 300 Mg Capsule, 300 MG PO TID for neuopathy MDD 1, #90 CAP Prov:ABDIAS GREWAL MD 03/03/19 Amlodipine Besylate (AMLODIPINE BESYLATE) 10 Mg Tablet, 10 MG PO DAILY for HIGH BLOOD PRESSURE MDD 1, #60 TAB Prov:ABDIAS GREWAL MD 03/03/19 Reported Medications Furosemide (FUROSEMIDE) 80 Mg Tablet, 1 TAB PO DAILY for fluid retention, #30 TAB 5 Refills 03/26/21 Folic Acid/Vitamin B Comp W-C (NEPHRO-MIYA TABLET) 0.8 Mg Tablet, 1 TAB PO DAILY for renal disease, #30 TAB 5 Refills 03/26/21 Warfarin Sodium (WARFARIN SODIUM) 7.5 Mg Tablet, 7.5 MG PO QSU for DVT, TAB 03/26/21 Insulin Glargine,Hum.rec.anlog (LANTUS SOLOSTAR) 100 Unit/1 Ml Insuln.pen, 22 UNIT SQ QHS for blood sugar control , #15 ML 3 Refills 10/02/19 Warfarin Sodium (WARFARIN SODIUM) 5 Mg Tablet, 1 TAB PO QMTUWTHSA for blood thinner, #30 TAB 11/20/18 Discontinued Reported Medications Calcium Carbonate (TUMS) 200 Mg Tab.chew, 600 MG PO HS for heartburn, TAB.CHEW 03/26/21 Insulin Aspart (NOVOLOG) 100 Unit/1 Ml Cartridge, 10 UNIT SQ TIDWMEALS for DM, EACH 03/26/21 Insulin Lispro (HUMALOG) 100 Unit/1 Ml Cartridge, 15 UNIT SQ TIDWMEALS for blood sugar control , EACH 10/02/19 Discontinued Scripts [CEFEPIME HCL IV Push] 1 GM VIAL No Conflict Check, 3 GM IVP QODAY, EACH to be dosed at dialysis MWF Prov:ERVIN BOOGIE MD 03/06/21 Oxycodone/Apap 5-325 (PERCOCET 5-325 MG TABLET ) 1 Each Tablet, 1 TAB PO PRN Q4HRS PRN for PAIN, #30 TAB Prov:ERVIN BOOGIE MD 03/06/21 KACI SANDERS MD Apr 28, 2021 10:07
--- NOTE | 2021-04-28 10:13 | NUR ---
SW following. Discussed with RN, discharge orders faxed to [facility], NIRALI attempting to determine if pt is accepted and if he needs a COVID test prior to discharge. NIRALI will continue to follow. Addendum: 04/28/21 at 1621 by CORNEL CAMPOVERDE Pt does not have a skillable need for SNF per [facility]. NIRALI spoke with pt, pt appeared annoyed with this news and did not like when NIRALI discussed about him going home. Pt agreeable to [facility], did not want to tell SW who he had had in the past. NIRALI faxed referral to [facility]. RN notified.
[2021-04-28] MEDS: MORPHINE SULFATE 2 MG/ML INJ. IVP PRN ×2 (12:55→15:01)
--- NOTE | 2021-04-28 14:35 | SNU/HH DC ---
DISCHARGE WITH HOME HEALTH DISCHARGE INFORMATION: Discharge Date: Apr 28, 2021 Condition on Discharge: Stable CODE STATUS: Code Status: Full HOME HEALTH: Face to Face: I certify this patient is under my care and that I, or a nurse practitioner or physician's radiology physician assistant working with me, had a face to face encounter that meets the physician face to face encounter requirements with this patient on []. Medical Complications: Other (OSTEOMYELITIS) Prison For: Assess Cardiopulm Status, Assess & Educate Safety, Assess/Skilled Observatio, Medication Management RN For Eval/Treatment: Yes Physical Therapy For: Evalulation/Treatment Occupational Therapy For: Evaluation/Treatment Speech Language Pathology For: Evaluation/Treatment Home Health Aide For: Self-care AUDIO VIDEO TECH For: Community Resources Pt Meets Homebound Status: Limited distance walking POST DISCHARGE ORDERS: Activity Instructions for Disc: Activity as tolerated Weight Bearing Status after Di: Non weight bearing Bathing Instructions: Shower-keep dressing dry DIET AFTER DISCHARGE: Renal Wound/Incision Care: Other, see below CHECKS AFTER DISCHARGE: Checks after discharge: Check blood press - daily, Check blood sugar, ac/hs, Check your Temp as needed, Weigh Yourself Daily FOLLOW-UP: Follow up with: DR ANDRADE ONE WEEK, VASCULAR SURGERY 7-10 DAYS, NEPHROLOGY MWF DC TO SNF LABS: CBC, CMP ESR, TWICE A WEEK Warfarin Follow UP: DAILY INR X 4 DAYS TREATMENT/EQUIPMENT ORDERS: Adaptive Equipment Issued: Front wheeled walker CERTIFICATION STATEMENT: Certification Statement: Certification Statement: Based on the above finding, I certify that this patient is confined to the home and needs intermittent penitentiary care, physical therapy and/or speech therapy, or continues to need occupational therapy.~ This patient is under my care, and I have initiated the establishment of the plan of care.~ This patient will be followed by myself or a community physician who will periodically review the plan of care. Home Meds Active Scripts Amoxicillin/Potassium Clav (AUGMENTIN 875-125 TABLET) 1 Each Tablet, 1 TAB PO BID for INFECTION for 21 Days, #42 TAB 0 Refills Prov:KACI SANDERS MD 04/28/21 Insulin Lispro (Admelog) 100 Unit/1 Ml Vial, 12 UNITS SQ TIDWMEALS for DIABETES for 30 Days, #2 EACH Prov:KACI SANDERS MD 04/28/21 Insulin Lispro (Admelog) 100 Unit/1 Ml Vial, 0 UNITS SQ TIDWMEALS for PER SS PROTOCOL for 30 Days, #1 EACH Prov:KACI SANDERS MD 04/28/21 Lidocaine Hcl (LIDOCAINE HCL) 5 Ml Jel..ml., 1 DORCAS TP 1X PRN for PRIOR TO PROCEDURE for 14 Days, #30 MISC Prov:KACI SANDERS MD 04/28/21 Diphenhydramine Hcl (DIPHENHYDRAMINE HCL) 25 Mg Capsule, 50 MG PO PRN QHS PRN for INSOMNIA for 30 Days, #14 CAP Prov:KACI SANDERS MD 04/28/21 Lactobacillus Rhamnosus Gg (CULTURELLE) 1 Each Cap.sprink, 1 CAP PO BID for gut health on antibiotics, #30 CAP Prov:ERVIN BOOGIE MD 03/06/21 Acetaminophen (ACETAMINOPHEN) 325 Mg Tablet, 650 MG PO DAILY PRN for PAIN, #30 TAB Prov:ERVIN BOOGIE MD 03/06/21 Sennosides (SENNA LAX) 8.6 Mg Tablet, 17.2 MG PO PRN BID PRN for CONSTIPATION, #30 TAB Prov:ERVIN BOOGIE MD 03/06/21 Docusate Sodium (DOK) 100 Mg Capsule, 100 MG PO DAILY for prevent constipation, #30 CAP Prov:ERVIN BOOGIE MD 03/06/21 [Vancomycin Per Pharmacy] 1 EACH EACH No Conflict Check, 1 EACH MC PRN DAILY PRN for SEE COMMENTS at dialysis Prov:ERVIN BOOGIE MD 03/06/21 Hydrocodone/Acetaminophen (Hydrocodone-Acetamin 5-325 mg) 1 Each Tablet, 1 EACH PO Q4HRS PRN for PAIN for 5 Days, #20 TAB Prov:LEBRON DOVER PROGRESS MAN 01/29/21 Gabapentin (GABAPENTIN) 300 Mg Capsule, 300 MG PO TID for neuopathy MDD 1, #90 CAP Prov:ABDIAS GREWAL MD 03/03/19 Amlodipine Besylate (AMLODIPINE BESYLATE) 10 Mg Tablet, 10 MG PO DAILY for HIGH BLOOD PRESSURE MDD 1, #60 TAB Prov:ABDIAS GREWAL MD 03/03/19 Reported Medications Furosemide (FUROSEMIDE) 80 Mg Tablet, 1 TAB PO DAILY for fluid retention, #30 TAB 5 Refills 03/26/21 Folic Acid/Vitamin B Comp W-C (NEPHRO-MIYA TABLET) 0.8 Mg Tablet, 1 TAB PO DAILY for renal disease, #30 TAB 5 Refills 03/26/21 Warfarin Sodium (WARFARIN SODIUM) 7.5 Mg Tablet, 7.5 MG PO QSU for DVT, TAB 03/26/21 Insulin Glargine,Hum.rec.anlog (LANTUS SOLOSTAR) 100 Unit/1 Ml Insuln.pen, 22 UNIT SQ QHS for blood sugar control , #15 ML 3 Refills 10/02/19 Warfarin Sodium (WARFARIN SODIUM) 5 Mg Tablet, 1 TAB PO QMTUWTHSA for blood th inner, #30 TAB 11/20/18 Discontinued Reported Medications Calcium Carbonate (TUMS) 200 Mg Tab.chew, 600 MG PO HS for heartburn, TAB.CHEW 03/26/21 Insulin Aspart (NOVOLOG) 100 Unit/1 Ml Cartridge, 10 UNIT SQ TIDWMEALS for DM, EACH 03/26/21 Insulin Lispro (HUMALOG) 100 Unit/1 Ml Cartridge, 15 UNIT SQ TIDWMEALS for blood sugar control , EACH 10/02/19 Discontinued Scripts [CEFEPIME HCL IV Push] 1 GM VIAL No Conflict Check, 3 GM IVP QODAY, EACH to be dosed at dialysis MWF Prov:ERVIN BOOGIE MD 03/06/21 Oxycodone/Apap 5-325 (PERCOCET 5-325 MG TABLET ) 1 Each Tablet, 1 TAB PO PRN Q4HRS PRN for PAIN, #30 TAB Prov:ERVIN BOOGIE MD 03/06/21 KACI SANDERS MD Apr 28, 2021 14:35
[2021-04-28] MEDS: WARFARIN 5 MG TABLET. PO SCH (14:56)
[2021-04-28] MEDS: CEFEPIME HCL IV Push 1 GM VIAL. IVP SCH (14:57)
[2021-04-28] MEDS: VANCOMYCIN 500 MG in IV NORMAL SALINE 100ML 100 ML IV SCH (14:58)
[2021-04-28 15:13] VITALS: BP 126/63
--- NOTE | 2021-04-28 17:41 | NUR ---
refused fingerstick blood sugar
--- NOTE | 2021-04-28 18:30 | NUR ---
refusing to go home if he has no pain medication. Not going through that again. Dr. Robles pagesteven and informed that [facility] pharmacy will not accept paper scripts. He suggested he go to [place] Addendum: 04/28/21 at 1949 by RADHA RYAN RN Nursing spine supervisor notified of the difficulty regarding pain medication for home. at this time patient is remaining. saline lock was removed earlier in anticipation of going home.
[2021-04-28 19:45] VITALS: BP 113/57
[2021-04-28] MEDS: diphenhydrAMINE HCL 25 MG CAPSULE PO PRN (21:26)
[2021-04-28] MEDS: INSULIN GLARGINE SYRINGE. SQ SCH (21:32)
[2021-04-28 23:51] VITALS: BP 119/55
[2021-04-29 02:38] VITALS: BP 95/48
[2021-04-29 07:00] VITALS: BP 127/67
[2021-04-29] MEDS: GABAPENTIN 300 MG CAPSULE. PO SCH (07:39)
[2021-04-29] MEDS: FOLIC/VIT B COMP W-C (RENAL) TABLET. PO SCH (07:39)
[2021-04-29] MEDS: HYDROcodone/APAP 7.5/325MG 1 TAB TABLET PO PRN (07:40)
[2021-04-29] MEDS: FUROSEMIDE 80 MG TABLET. PO SCH (07:40)
[2021-04-29] MEDS: LACTOBACILLUS RHAMNOSUS GG 1 CAPSULE. PO SCH (07:40)
--- NOTE | 2021-04-29 07:50 | PDOC ---
Infectious Disease Note Subjective Subjective Pt without complaints ROS ROS No nausea vomiting diarrhea chest pain shortness of breath Vital Sign Vital Signs Vital Signs Date Time Temp Pulse Resp B/P (MAP) Pulse Ox O2 Delivery O2 Flow Rate FiO2 04/29/21 07:40 97 Room Air 04/29/21 07:00 98.1 81 18 127/67 (87) 98.1 Physical Exam PHYSICAL EXAM GENERAL: Alert, oriented x 3 male, in no acute distress. NAD HEENT: Normocephalic, atraumatic. Conjunctivae are clear. Oropharynx is clear. NECK: Supple. LUNGS: Clear bilaterally. No accessory muscle use. HEART: S1, S2. No murmurs. ABDOMEN: Soft, nontender, nondistended. Bowel sounds present. EXTREMITIES: Right foot wound dressing in place, dry not taken down DERMATOLOGIC: Warm, dry skin. No generalized rash. NEUROLOGIC: Alert, oriented x 3, grossly nonfocal. PSYCHIATRIC: Cooperative, calm. ACCESS: Right upper arm AV fistula clean. Labs Lab Laboratory Tests Test 04/28/21 20:38 Glucose (Fingerstick) 221 mg/dL (70-99) Objective Assessment 1. 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 End-stage renal disease on hemodialysis 3. Noncompliant 4. Diabetes mellitus 5. History of peripheral vascular disease. 6. Atrial fibrillation, on Coumadin. Plan Plan of Care Supportive care Discussed with vascular surgery they will see patient ok to d/c need leg elevation antibiotics changed to po augmentin LIZZETH ANDRADE MD Apr 29, 2021 07:50
[2021-04-29] MEDS: INSULIN LISPRO 300 UNITS/3 ML VIAL. SQ SCH ×2 (08:00→08:56)
--- NOTE | 2021-04-29 08:56 | PDOC ---
PROGRESS NOTES Date of Service: DATE: 04/29/21 TIME: 08:55 Chief Complaint Chief Complaint impression 04-29 Nonhealing right diabetic foot wound. S/P amputation of first, second, and third toe. ESRD on HD. Severe protein malnutrition. hyperkalemia k=5.9 Continue Vanco and Cefepime,renal dosing, Wound/VAC care as directed by wound team Encouraged for wound VAC, patient says it does not work for him Pros and cons discussed Monitor lab Supportive care pt wants to go to rehab ok to d/c per ID, AWAIT RENAL DIALYSIS TODAY need leg elevation antibiotics changed to po augmentin D/C PLANNING 34 MIN poor prognosis DUE TO NONCOMPLIANCE History of Present Illness History of Present Illness 66-year-old male who comes in because of a nonhealing right foot wound. Patient had amputation of his right foot digits in February 2021. He states that he has been through several nursing facilities and feels that he gets dumped somewhere else because he does not meet criteria for the nursing facility. He was actually supposed to be on vancomycin and cefepime for outpatient IV infusion and he was sent home with home health with a wound VAC. He states that he could not wear the wound VAC because it was too cumbersome for him to move around so he has not been using it for the last 3 weeks. Patient denies any fevers, chest pain, abdominal pain, dysuria, diarrhea or bloody stools. Does not report any active bleeding from the wound or extreme pain. He does not notice any foul smelling odor seeping from his surgical site. 04/25/2021 No acute events overnight. Pain is well controlled. Patient is heading to the dialysis for today. Continue with wound care and IV antibiotics. Pending evaluation from ID. Patient's chart, labs, images were reviewed and discussed with RN. 04/26/2021 Patient seen and examined at bedside. D/W RN. Chart reviewed. Patient is sitting upright eating breakfast. 04/27/2021 Patient seen and examined at bedside. D/W RN. Chart reviewed. Patient is sitting upright preparing to eat breakfast. He says he is hungry. Discussed possible need for wound vac. Patient is reluctant to start wound vac. Wound care team to follow patient. Vitals Vitals Vital Signs Date Time Temp Pulse Resp B/P (MAP) Pulse Ox O2 Delivery O2 Flow Rate FiO2 04/29/21 07:40 97 Room Air 04/29/21 07:00 98.1 81 18 127/67 (87) 98.1 Physical Exam Physical Exam GENERAL: Alert, oriented x 3 male, in no acute distress. NAD HEENT: Normocephalic, atraumatic. Conjunctivae are clear. Oropharynx is clear. NECK: Supple. LUNGS: Clear bilaterally. No accessory muscle use. HEART: S1, S2. No murmurs. ABDOMEN: Soft, nontender, nondistended. Bowel sounds present. EXTREMITIES: Right foot wound dressing in place, dry not taken down DERMATOLOGIC: Warm, dry skin. No generalized rash. NEUROLOGIC: Alert, oriented x 3, grossly nonfocal. PSYCHIATRIC: Cooperative, calm. ACCESS: Right upper arm AV fistula clean. General: Alert, Oriented X3, Cooperative, No acute distress Heart: Regular rate Lungs: Clear Abdomen: Normal bowel sounds, Soft, No tenderness, No hepatosplenomegaly Extremities: No cyanosis, No edema, Other (Right foot nonhealing wound infection) Labs LABS Laboratory Tests Test 04/28/21 20:38 Glucose (Fingerstick) 221 mg/dL (70-99) Comment Review of Relevant I have reviewed the following items keron (where applicable) has been applied. Labs Laboratory Tests Test 04/27/21 12:04 04/27/21 16:38 04/27/21 21:12 04/28/21 03:40 Glucose (Fingerstick) 135 mg/dL (70-99) 151 mg/dL (70-99) 132 mg/dL (70-99) Prothrombin Time 24.9 SEC (11.7-14.0) Prothromb Time International Ratio 2.3 (0.8-1.1) Sodium Level 135 mmol/L (136-145) Potassium Level 5.9 mmol/L (3.5-5.1) Chloride Level 101 mmol/L (98-107) Carbon Dioxide Level 25 mmol/L (21-32) Anion Gap 9 (6-14) Blood Urea Nitrogen 69 mg/dL (8-26) Creatinine 10.0 mg/dL (0.7-1.3) Estimated GFR (Cockcroft-Gault) 6.3 BUN/Creatinine Ratio 7 (6-20) Glucose Level 254 mg/dL (70-99) Calcium Level 9.9 mg/dL (8.5-10.1) Total Bilirubin 0.2 mg/dL (0.2-1.0) Aspartate Amino Transf (AST/SGOT) 16 U/L (15-37) Alanine Aminotransferase (ALT/SGPT) 18 U/L (16-63) Alkaline Phosphatase 57 U/L (46-116) Total Protein 7.3 g/dL (6.4-8.2) Albumin 2.6 g/dL (3.4-5.0) Albumin/Globulin Ratio 0.6 (1.0-1.7) Test 04/28/21 07:17 04/28/21 20:38 Glucose (Fingerstick) 204 mg/dL (70-99) 221 mg/dL (70-99) Laboratory Tests Test 04/28/21 20:38 Glucose (Fingerstick) 221 mg/dL (70-99) Medications Current Medications Acetaminophen (Tylenol) 650 mg PRN Q4HRS PRN PO TEMP OVER 100.4F OR MILD PAIN; Start 04/24/21 at 02:00; Stop 04/24/21 at 14:06; Status DC Insulin Glargine (Lantus Syringe) 22 unit QHS SQ ; Start 04/24/21 at 21:00; Stop 04/24/21 at 08:09; Status DC Insulin Human Lispro (HumaLOG) 0-5 UNITS TIDWMEALS SQ Last administered on 04/24/21at 09:15; Start 04/24/21 at 08:00; Stop 04/24/21 at 14:07; Status DC Dextrose (Dextrose 50%-Water Syringe) 12.5 gm PRN Q15MIN PRN IV SEE COMMENTS; Start 04/24/21 at 02:00; Stop 04/24/21 at 14:06; Status DC Insulin Human Lispro (HumaLOG) 12 units TIDWMEALS SQ Last administered on 04/28/21at 18:42; Start 04/24/21 at 08:00 Morphine Sulfate (Morphine Sulfate) 2 mg PRN Q2HR PRN IVP SEVERE PAIN 7-10 Last administered on 04/28/21 15:01; Start 04/24/21 at 02:00 Amlodipine Besylate (Norvasc) 10 mg DAILY PO Last administered on 04/28/21 08:48; Start 04/24/21 at 09:00 Vitamin B Complex/ Vitamin C (Tiffani-Rakehs) 1 tab DAILY PO Last administered on 04/29/21 07:39; Start 04/24/21 at 09:00 Furosemide (Lasix) 80 mg DAILY PO Last administered on 04/29/21 07:40; Start 04/24/21 at 09:00 Gabapentin (Neurontin) 300 mg TID PO Last administered on 04/29/21 07:39; Start 04/24/21 at 09:00 Acetaminophen/ Hydrocodone Bitart (Lortab 5/325) 1 tab PRN Q4HRS PRN PO MODERATE PAIN, SEVERE PAIN Last administered on 04/26/21at 10:18; Start 04/24/21 at 08:15; Stop 04/26/21 at 12:33; Status DC Sennosides (Senna) 17.2 mg PRN BID PRN PO CONSTIPATION; Start 04/24/21 at 08:15; Stop 04/24/21 at 14:44; Status DC Warfarin Sodium (Coumadin) 5 mg MoTuWeThFrSa PO Last administered on 04/28/21 14:56; Start 04/24/21 at 16:00 Warfarin Sodium (Coumadin) 7.5 mg QSU PO Last administered on 04/27/21at 17:37; Start 04/27/21 at 16:00 Insulin Glargine (Lantus Syringe) 22 unit QHS SQ Last administered on 04/28/21 21:32; Start 04/24/21 at 21:00 Non-Formulary Medication ([CEFEPIME HCL IV Push] ) 3 gm QODAY IVP ; Start 04/24/21 at 09:00; Status UNV Vancomycin HCl (Vanco Per Pharmacy) 1 each PRN DAILY PRN MC SEE COMMENTS Last administered on 04/25/21at 09:25; Start 04/24/21 at 10:30 Cefepime HCl (Maxipime) 1 gm Q24H IVP Last administered on 04/28/21at 14:57; Start 04/24/21 at 16:00 Warfarin Sodium (Coumadin Per Physician) 1 each PRN DAILY PRN MC SEE COMMENTS Last administered on 04/28/21at 11:39; Start 04/24/21 at 12:00 Sennosides (Senna) 17.2 mg PRN BID PRN PO CONSTIPATION; Start 04/24/21 at 14:00 Docusate Sodium (Colace) 100 mg PRN DAILY PRN PO HARD STOOLS; Start 04/24/21 at 14:00 Ondansetron HCl (Zofran) 4 mg PRN Q6HRS PRN IVP NAUSEA/VOMITING, 1ST CHOICE; Start 04/24/21 at 14:00 Insulin Human Lispro (HumaLOG) 0-5 UNITS TIDWMEALS SQ Last administered on 04/28/21at 08:52; Start 04/24/21 at 17:00 Dextrose (Dextrose 50%-Water Syringe) 12.5 gm PRN Q15MIN PRN IV SEE COMMENTS; Start 04/24/21 at 14:00 Acetaminophen (Tylenol) 650 mg PRN Q4HRS PRN PO TEMP OVER 100.4F OR MILD PAIN; Start 04/24/21 at 14:00 Heparin Sodium (Porcine) (Heparin Sodium) 5,000 unit Q12HR SQ ; Start 04/24/21 at 21:00; Status UNV Prochlorperazine Edisylate (Compazine) 10 mg PRN Q6HRS PRN IV NAUSEA/VOMITING, 2ND CHOICE; Start 04/24/21 at 14:00 Vancomycin HCl 500 mg/Sodium Chloride 100 ml @ 100 mls/hr QMWF IV Last administered on 04/28/21at 14:58; Start 04/25/21 at 16:00 Vancomycin HCl (Vancomycin Random Level) 1 each 1X ONCE MC Last administered on 04/25/21at 05:36; Start 04/25/21 at 06:00; Stop 04/25/21 at 06:01; Status DC Zolpidem Tartrate (Ambien) 5 mg PRN QHS PRN PO INSOMNIA Last administered on 04/24/21at 21:56; Start 04/24/21 at 21:45 Lactobacillus Rhamnosus (Culturelle) 1 cap BID PO Last administered on 04/29/21at 07:40; Start 04/25/21 at 09:00 Sodium Chloride 1,000 ml @ 1,000 mls/hr Q1H PRN IV hypotension; Start 04/25/21 at 08:45; Stop 04/25/21 at 14:44; Status DC Albumin Human 200 ml @ 200 mls/hr 1X PRN PRN IV Hypotension; Start 04/25/21 at 08:45; Stop 04/25/21 at 14:44; Status DC Diphenhydramine HCl (Benadryl) 25 mg 1X PRN PRN IV ITCHING Last administered on 04/25/21at 09:50; Start 04/25/21 at 08:45; Stop 04/26/21 at 08:44; Status DC Diphenhydramine HCl (Benadryl) 25 mg 1X PRN PRN IV ITCHING; Start 04/25/21 at 08:45; Stop 04/26/21 at 08:44; Status DC Sodium Chloride 1,000 ml @ 400 mls/hr Q2H30M PRN IV PATENCY; Start 04/25/21 at 08:45; Stop 04/25/21 at 20:44; Status DC Lidocaine HCl (Xylocaine-Mpf 1% 2ml Vial) 2 ml 1X PRN PRN INJ FOR DIALYSIS Last administered on 04/25/21at 09:00; Start 04/25/21 at 08:45; Stop 04/26/21 at 08:44; Status DC Info (PHARMACY MONITORING -- do not chart) 1 each PRN DAILY PRN MC SEE COMMENTS; Start 04/25/21 at 08:45; Status Cancel Info (PHARMACY MONITORING -- do not chart) 1 each PRN DAILY PRN MC SEE COMMENTS; Start 04/25/21 at 08:45; Status Cancel Acetaminophen/ Hydrocodone Bitart (Lortab 7.5/325) 1 tab PRN Q4HRS PRN PO MODERATE-SEVERE PAIN Last administered on 04/29/21at 07:40; Start 04/26/21 at 12:30 Diphenhydramine HCl (Benadryl) 50 mg PRN QHS PRN PO INSOMNIA Last administered on 04/28/21at 21:26; Start 04/27/21 at 11:00 Sodium Chloride 1,000 ml @ 1,000 mls/hr Q1H PRN IV hypotension; Start 04/28/21 at 08:00; Stop 04/28/21 at 13:59; Status DC Albumin Human 200 ml @ 200 mls/hr 1X PRN PRN IV Hypotension; Start 04/28/21 at 08:00; Stop 04/28/21 at 13:59; Status DC Diphenhydramine HCl (Benadryl) 25 mg 1X PRN PRN IV ITCHING Last administered on 04/28/21at 10:30; Start 04/28/21 at 08:00; Stop 04/29/21 at 07:59; Status DC Diphenhydramine HCl (Benadryl) 25 mg 1X PRN PRN IV ITCHING; Start 04/28/21 at 08:00; Stop 04/29/21 at 07:59; Status DC Sodium Chloride 1,000 ml @ 400 mls/hr Q2H30M PRN IV PATENCY; Start 04/28/21 at 08:00; Stop 04/28/21 at 19:59; Status DC Lidocaine HCl (Xylocaine-Mpf 1% 2ml Vial) 2 ml 1X PRN PRN INJ FOR DIALYSIS Last administered on 04/28/21at 10:20; Start 04/28/21 at 08:00; Stop 04/29/21 at 07:59; Status DC Info (PHARMACY MONITORING -- do not chart) 1 each PRN DAILY PRN MC SEE COMMENTS; Start 04/28/21 at 08:00; Status UNV Info (PHARMACY MONITORING -- do not chart) 1 each PRN DAILY PRN MC SEE COMMENTS; Start 04/28/21 at 08:00 Lidocaine HCl (Xylocaine 2% Topical 5gm Tube) 1 luiza 1X PRN TP PRIOR TO PROCEDURE; Start 04/28/21 at 08:15 Active Scripts Active Augmentin 875-125 Tablet (Amoxicillin/Potassium Clav) 1 Each Tablet 1 Tab PO BID 21 Days Admelog (Insulin Lispro) 100 Unit/1 Ml Vial 12 Units SQ TIDWMEALS 30 Days Admelog (Insulin Lispro) 100 Unit/1 Ml Vial 0 Units SQ TIDWMEALS 30 Days Lidocaine Hcl 5 Ml Jel..ml. 1 Luiza TP 1X PRN 14 Days Diphenhydramine Hcl 25 Mg Capsule 50 Mg PO PRN QHS PRN 30 Days Culturelle (Lactobacillus Rhamnosus Gg) 1 Each Cap.sprink 1 Cap PO BID Acetaminophen 325 Mg Tablet 650 Mg PO DAILY PRN Senna Lax (Sennosides) 8.6 Mg Tablet 17.2 Mg PO PRN BID PRN Dok (Docusate Sodium) 100 Mg Capsule 100 Mg PO DAILY [Vancomycin Per Pharmacy] 1 EACH Each 1 Each MC PRN DAILY PRN at dialysis Hydrocodone-Acetamin 5-325 mg (Hydrocodone/Acetaminophen) 1 Each Tablet 1 Each PO Q4HRS PRN 5 Days Gabapentin 300 Mg Capsule 300 Mg PO TID MDD 1 Amlodipine Besylate 10 Mg Tablet 10 Mg PO DAILY MDD 1 Reported Furosemide 80 Mg Tablet 1 Tab PO DAILY Nephro-Rakesh Tablet (Folic Acid/Vitamin B Comp W-C) 0.8 Mg Tablet 1 Tab PO DAILY Warfarin Sodium 7.5 Mg Tablet 7.5 Mg PO QSU Lantus Solostar (Insulin Glargine,Hum.rec.anlog) 100 Unit/1 Ml Insuln.pen 22 Unit SQ QHS Warfarin Sodium 5 Mg Tablet 1 Tab PO QMTUWTHSA Vitals/I & O Vital Sign - Last 24 Hours 04/28/21 04/28/21 04/28/21 04/28/21 09:30 12:46 12:55 13:30 Resp 20 20 22 18 Pulse Ox 99 99 99 O2 Delivery Room Air Room Air Room Air 04/28/21 04/28/21 04/28/21 04/28/21 13:30 15:01 15:13 15:30 Temp 98.0 98.0 Pulse 49 Resp 18 20 18 20 B/P (MAP) 126/63 (84) Pulse Ox 99 98 98 O2 Delivery Room Air Room Air Room Air 04/28/21 04/28/21 04/28/21 04/28/21 19:13 19:45 20:00 22:50 Temp 98.6 98.6 Pulse 83 Resp 20 18 20 B/P (MAP) 113/57 (75) Pulse Ox 90 O2 Delivery Room Air Room Air Room Air Room Air 04/28/21 04/28/21 04/29/21 04/29/21 23:20 23:51 02:38 07:00 Temp 99.4 98.3 98.1 99.4 98.3 98.1 Pulse 66 86 81 Resp 20 16 16 18 B/P (MAP) 119/55 (76) 95/48 (64) 127/67 (87) Pulse Ox 90 97 98 O2 Delivery Room Air Room Air Room Air Room Air 04/29/21 07:40 Pulse Ox 97 O2 Delivery Room Air Intake and Output 04/28/21 04/28/21 04/29/21 15:00 23:00 07:00 Intake Total 60 ml 0 ml Balance 60 ml 0 ml Nutrition Consultation Dietary Evaluation: Recommendations by RD: Dietary education by RD, Increase Calorie Intake, Protein supplementation Comments: Renal / ADA diet , DBL meats, jazlyn bid education Handouts provided to use at d/c Expected Outcomes/Goals: to meet >75% est nutr needs improved diet compliance Malnutrition Findings: Body Fat Depletion (Non Severe: Mild Depletion Weight Status: Underweight Justicifation of Admission Dx: Justifications for Admission: Justification of Admission Dx: Yes Chronic Renal Failure: Electrolyte Abnormality KACI SANDERS MD Apr 29, 2021 08:56
[2021-04-29 09:00] VITALS: BP 127/67
--- NOTE | 2021-04-29 09:02 | NUR ---
Patient refused morning blood sugar check but demanded to have his scheduled 12 units insulin which was given with diabetic education after he ate 100% of his breakfast. Patient very agitated and demands to go home immediately. Only allowed this nurse to do a partial assessment since "he is going home now". Dr Robles aware. Will follow up and monitor.
--- NOTE | 2021-04-29 09:43 | PDOC ---
DATE OF SERVICE DATE: 04/29/21 TIME: 09:42 SUBJECTIVE ROS stable OBJECTIVE Vital Signs Vital Signs Date Time Temp Pulse Resp B/P (MAP) Pulse Ox O2 Delivery O2 Flow Rate FiO2 04/29/21 07:40 97 Room Air 04/29/21 07:00 98.1 81 18 127/67 (87) 98.1 I & 0 Intake and Output 04/29/21 07:00 Intake Total 60 ml Balance 60 ml Intake Oral 60 ml PHYSICAL EXAM Physical Exam GENERAL: no acute distress. HEENT: OM moist NECK: Supple. LUNGS: Clear bilaterally. No accessory muscle use. HEART: S1, S2. No murmurs. ABDOMEN: Soft, nontender, nondistended. Bowel sounds present. EXTREMITIES: Right foot wound dressing in place, DERMATOLOGIC: Warm, dry skin. No generalized rash. NEUROLOGIC: Alert, oriented x 3, grossly nonfocal. PSYCHIATRIC: Cooperative, calm. ACCESS: Right upper arm AV fistula DIAGNOSIS/ASSESSMENT Assessment & Plan ESRD On HD MWF currently no indictaion for dialysis today Nonhealing right diabetic foot wound - on Vanco and Cefepime Status post amputation of first second and third toe Noncompliant COPD - stable Chronic diarrhea - stable currently Diabetes mellitus Peripheral neuropathy Hypertension antihypertensives History of DVT, on warfarin therapy History of colorectal cancer - s/p resection H/o hepatitis C - in SVR Anemia On Aranesp COMMENT/RELEVANT DATA Meds Current Medications Medications (Trade) Dose Ordered Sig/Raymon Start Time Stop Time Status Last Admin Dose Admin Acetaminophen (Tylenol) 650 mg PRN Q4HRS PRN 04/24/21 14:00 Acetaminophen/ Hydrocodone Bitart (Lortab 5/325) 1 tab PRN Q4HRS PRN 04/24/21 08:15 04/26/21 12:33 DC 04/26/21 10:18 1 TAB Acetaminophen/ Hydrocodone Bitart (Lortab 7.5/325) 1 tab PRN Q4HRS PRN 04/26/21 12:30 04/29/21 07:40 1 TAB Albumin Human 200 ml @ 200 mls/hr 1X PRN PRN 04/28/21 08:00 04/28/21 13:59 DC Amlodipine Besylate (Norvasc) 10 mg DAILY 04/24/21 09:00 04/28/21 08:48 10 MG Cefepime HCl (Maxipime) 1 gm Q24H 04/24/21 16:00 04/28/21 14:57 1 GM Dextrose (Dextrose 50%-Water Syringe) 12.5 gm PRN Q15MIN PRN 04/24/21 14:00 Diphenhydramine HCl (Benadryl) 25 mg 1X PRN PRN 04/28/21 08:00 04/29/21 07:59 DC Docusate Sodium (Colace) 100 mg PRN DAILY PRN 04/24/21 14:00 Furosemide (Lasix) 80 mg DAILY 04/24/21 09:00 04/29/21 07:40 80 MG Gabapentin (Neurontin) 300 mg TID 04/24/21 09:00 04/29/21 07:39 300 MG Heparin Sodium (Porcine) (Heparin Sodium) 5,000 unit Q12HR 04/24/21 21:00 UNV Info (PHARMACY MONITORING -- do not chart) 1 each PRN DAILY PRN 04/28/21 08:00 Insulin Glargine (Lantus Syringe) 22 unit QHS 04/24/21 21:00 04/28/21 21:32 22 UNIT Insulin Human Lispro (HumaLOG) 0-5 UNITS TIDWMEALS 04/24/21 17:00 04/28/21 08:52 3 UNITS Lactobacillus Rhamnosus (Culturelle) 1 cap BID 04/25/21 09:00 04/29/21 07:40 1 CAP Lidocaine HCl (Xylocaine 2% Topical 5gm Tube) 1 danisha 1X PRN 04/28/21 08:15 Lidocaine HCl (Xylocaine-Mpf 1% 2ml Vial) 2 ml 1X PRN PRN 04/28/21 08:00 04/29/21 07:59 DC 04/28/21 10:20 2 ML Morphine Sulfate (Morphine Sulfate) 2 mg PRN Q2HR PRN 04/24/21 02:00 04/28/21 15:01 2 MG Non-Formulary Medication ([CEFEPIME HCL IV Push] ) 3 gm QODAY 04/24/21 09:00 UNV Ondansetron HCl (Zofran) 4 mg PRN Q6HRS PRN 04/24/21 14:00 Prochlorperazine Edisylate (Compazine) 10 mg PRN Q6HRS PRN 04/24/21 14:00 Sennosides (Senna) 17.2 mg PRN BID PRN 04/24/21 14:00 Sodium Chloride 1,000 ml @ 400 mls/hr Q2H30M PRN 04/28/21 08:00 04/28/21 19:59 DC Vancomycin HCl (Vanco Per Pharmacy) 1 each PRN DAILY PRN 04/24/21 10:30 04/25/21 09:25 1 EACH Vancomycin HCl (Vancomycin Random Level) 1 each 1X ONCE 04/25/21 06:00 04/25/21 06:01 DC 04/25/21 05:36 1 EACH Vancomycin HCl 500 mg/Sodium Chloride 100 ml @ 100 mls/hr QMWF 04/25/21 16:00 04/28/21 14:58 100 MLS/HR Vitamin B Complex/ Vitamin C (Tiffani-Rakesh) 1 tab DAILY 04/24/21 09:00 04/29/21 07:39 1 TAB Warfarin Sodium (Coumadin Per Physician) 1 each PRN DAILY PRN 04/24/21 12:00 04/28/21 11:39 1 EACH Warfarin Sodium (Coumadin) 7.5 mg QSU 04/27/21 16:00 04/27/21 17:37 7.5 MG Zolpidem Tartrate (Ambien) 5 mg PRN QHS PRN 04/24/21 21:45 04/24/21 21:56 5 MG Lab Laboratory Tests Test 04/28/21 20:38 Glucose (Fingerstick) 221 mg/dL (70-99) Results All relevant outside records, renal labs, imaging studies, telemetry/EKG's were reviewed. Justicifation of Admission Dx: Justifications for Admission: Justification of Admission Dx: Yes Chronic Renal Failure: Electrolyte Abnormality NNAMDI TESFAYE MD Apr 29, 2021 09:43
[2021-04-29] MEDS ORDERED: HYDR-2765 PO (09:51)
--- NOTE | 2021-04-29 09:53 | NUR ---
Patient left with his mom at [id number]. Discharge education gone over in detail. Pain medication is going to be sent electronically by [facility] so patient can be discharged now since it is showing many signs of agitation and restlessness. He was going to have an appointment with them at 10:45 but they came to see him in the hospital instead of him going to to see them, another appointment was made by their team for May 13. Dressing to right toes changed prior to dismissal and further wound care orders given to the patient. No concerns noted at discharge.
--- NOTE | 2021-04-29 09:58 | PDOC ---
Provider Note Date of Service: DATE: 04/29/21 TIME: 09:54 Provider Note Provider Note We were notified by another provider that this patient was here inpatient and he had follow-up with us scheduled for today. We have not been consulted, however agreed to see the patient prior to discharge in follow-up and move out his outpatient follow-up. He had right first toe amputation and second and third toe amputation debridement in February and his wounds are healing. He has had previous wound VAC, but has self discontinued that, now continued wound care. The wound is clean with minimal slough on the base, wound edges are clean. His foot is warm. RN reports that he was supposed to discharge yesterday, however he will not discharge without pain medications and there have been issues with the challenging electronic prescribing process for the hospitalist. We will assist with this and send pain prescription so patient can discharge. I did have a discussion with him about needing to start self-weaning off narcotics or may need to consider chronic pain management in future. He will follow up with us in 2 weeks. Needs to continue follow-up with wound care, antibiotics per ID and offloading. Justicifation of Admission Dx: Justifications for Admission: Justification of Admission Dx: Yes Chronic Renal Failure: Electrolyte Abnormality JOSÉ MIGUEL KIRBY Apr 29, 2021 09:58
--- NOTE | 2021-04-29 13:14 | NUR ---
SW following. Discussed with Nory THOMAS needing to know pt's PCP. RN tried to ask pt, pt did not want to tell RN and responded with "I see a lot of doctors so don't know who is who." Pt discharged home - will have to follow up with his PCP for home health. Addendum: 05/01/21 at 1346 by CORNEL CAMPOVERDE NIRALI received a call advising pt is current with [facility]. Discharge orders faxed to [facility].
[2021-04-29] MEDS ORDERED: DARBEPOETIN ALFA 40 MCG/0.4 ML DISP.SYRIN. SQ SCH (21:00)
== END 2021-04-29 09:56 | disposition home health service (06) | DRG 299 ==
LOC: 2 SOUTH 00:30 → 6 SOUTH 04-25 09:35 → 4 NORTH 04-25 23:33
PROVIDERS: ADMIT Internal Medicine; ATTEND Internal Medicine
PROC: 5A1D70Z Performance of Urinary Filtration, Intermittent, Less than 6 Hours Per Day (ICD-10-PCS; 2021-04-25)
PROC: 5A1D70Z Performance of Urinary Filtration, Intermittent, Less than 6 Hours Per Day (ICD-10-PCS; principal; 2021-04-28)
DX: E11.52 Type 2 diabetes mellitus with diabetic peripheral angiopathy with gangrene (principal); E43 Unspecified severe protein-calorie malnutrition; N18.6 End stage renal disease; I12.0 Hypertensive chronic kidney disease with stage 5 chronic kidney disease or end stage renal disease; L03.90 Cellulitis, unspecified; M86.10 Other acute osteomyelitis, unspecified site; E87.5 Hyperkalemia; E11.69 Type 2 diabetes mellitus with other specified complication; D64.9 Anemia, unspecified; E11.22 Type 2 diabetes mellitus with diabetic chronic kidney disease; I48.91 Unspecified atrial fibrillation; Z79.01 Long term (current) use of anticoagulants; Z91.19 Patient's noncompliance with other medical treatment and regimen; Z99.2 Dependence on renal dialysis; Z79.899 Other long term (current) drug therapy; Z68.23 Body mass index [BMI] 23.0-23.9, adult; Z88.8 Allergy status to other drugs, medicaments and biological substances; J44.9 Chronic obstructive pulmonary disease, unspecified; E11.42 Type 2 diabetes mellitus with diabetic polyneuropathy; Z79.4 Long term (current) use of insulin; Z86.718 Personal history of other venous thrombosis and embolism
CPT/HCPCS: 36415; 80048; 80053; 80202; 82962; 83735; 84100; 85025; 85610; 86704; J0692; J1200; J1815; J2270; J3370; J3490; 97116-GP; G0378; Q0163

== ENCOUNTER 2021-07-26 16:16 | Emergency (ER) | payer MEDICARE ==
[~2021-07-26] VITALS: Ht 190.5 cm; Wt 75.0 kg
[~2021-07-26 16:16] MED LIST changes: +DIPH25CA23 PO; +HYDR-2765 PO; +INSU100V35 SQ; +LIDO5JEL3 TP
[2021-07-26 17:56] VITALS: BP 117/58
[2021-07-26] MEDS ORDERED: HYDR-2765 PO ×2 (18:44→18:54)
--- NOTE | 2021-07-26 18:45 | PHYS DOC ---
Past Medical History Past Medical History: Cancer, Diabetes-Type I, DVT, Renal Failure, Other Additional Past Medical Histor: ulcerative colitis, coloncancer osteo right foot Past Surgical History: Other Additional Past 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, 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, R arm dialysis toe amputati Smoking Status: Former Smoker Alcohol Use: None Drug Use: None General Adult EDM: Chief Complaint: PAIN CONTROL HPI: HPI: Patient is a 66 year old male sex with pmh of DM type 1 who presents with chronic pain in his right foot after amputation of all of his toes earlier this year. Pt states that the first part of the surgery was completed at [place] and further surgeries were completed at . Pt states that he has an appointment with pain management and his surgeon in July. Pt states that he has gotten several prescriptions for narcotics recently but has had to take double the dose to relieve his pain. Because of this, the pt has run out of his pain medications. The pt's home health nurse was dressing his wound this morning and told the pt to go to the ED if his pain did not get any better but the nurse did not note any signs of infection. Pt states that he also received some pain medication for a recent issue with his dialysis port. Pt does state that his wound is more sore than usual due to running out of medication but it is not acutely worse or different. Pt denies any recent fevers or chills. Review of Systems: Review of Systems: Constitutional: Denies fever or chills Eyes: Denies redness or eye pain HENT: Denies nasal congestion or sore throat Respiratory: Denies cough or shortness of breath Cardiovascular: Denies chest pain or palpitations GI: Denies abdominal pain, nausea, or vomiting : Denies dysuria or hematuria Musculoskeletal: Denies back pain; reports right foot pain Integument: Denies rash or skin lesions Neurologic: Denies headache, focal weakness or sensory changes Complete systems were reviewed and found to be within normal limits, except as documented in this note. Heart Score: C/O Chest Pain: No Allergies: Allergies: Allergies Coded Allergies Type Severity Reaction Last Updated Verified prednisone Allergy Intermediate 01/29/21 Yes Physical Exam: PE: Constitutional: Well developed, well nourished, no acute distress, non-toxic appearance HENT: Normocephalic, atraumatic Eyes: PERRL, EOMI, conjunctiva normal, no discharge Neck: Normal range of motion, no tenderness, supple Lungs & Thorax: No respiratory distress, equal chest rise and fall Abdomen: Soft, no tenderness Skin: Warm, dry, no erythema, no rash Back: No tenderness, no CVA tenderness Extremities: No tenderness, ROM intact, no edema, R distal LE post amputation of all toes, chronic wound, draining some serous fluid and some slight wound breakdown, no erythema and not hot to the touch, tender to palpation diffusely Neurologic: Alert and oriented X 3, normal motor function, normal sensory function, no focal deficits noted Psychologic: Affect normal, judgment normal Current Patient Data: Vital Signs: Vital Signs Date Time Temp Pulse Resp B/P (MAP) Pulse Ox O2 Delivery O2 Flow Rate FiO2 07/26/21 17:56 98.5 80 16 117/58 (77) 100 Room Air 98.5 Course & Med Decision Making: Course & Med Decision Making 66 yo male pt presents today with chronic pain of his distal R LE. Pt was looked up on [facility] and found to have several prescriptions for pain medications in the last month. When the pt was confronted with this information, he stated that he has been needing to take double the dose to feel any pain relief. Pt states that he has an appointment with pain management at in about 2 weeks. Pt's wound is not acutely worse and pt denies any symptoms of infection like fever or chills. On physical exam, the wound is draining some fluid and appears to be chronic without any signs of acute infection. Pt was given a prescription for [place] 7.5/325mg x14 tablets to bridge him to his pain management appointment. Pt was strongly encouraged to follow with his surgeon, wound care, and pain management to receive longitudinal care for his wound and pain. Patient stable for discharge with outpatient follow-up with PCP/wound management/pain management. Discussed findings and plan with patient, who acknowledges understanding and agreement. Emilie Disclaimer: Emilie Disclaimer: This electronic medical record was generated, in whole or in part, using a voice recognition dictation system. Departure Departure Impression: Primary Impression: Chronic foot pain Qualified Codes: M79.671 - Pain in right foot; G89.29 - Other chronic pain Additional Impression: Chronic wound of extremity Disposition: HOME / SELF CARE / HOMELESS Condition: STABLE Referrals: NON,STAFF (PCP) MARYURI GRAHAM II, MD, BRIAN N MD Patient Instructions: Chronic Pain, Chronic Pain Management Scripts Hydrocodone Bit/Acetaminophen (HYDROCODONE-APAP 7.5-325 ) 1 Tab Tablet 0.5-1 TAB PO PRN Q6HRS PRN for PAIN, #14 TAB 0 Refills Prov: SHAWN PATTEN DO 07/26/21 SHAWN PATTEN DO Jul 26, 2021 18:45
[2021-07-26] MEDS ORDERED: HYDROcodone/APAP 5/325MG 1 TAB TABLET PO ONE (19:00)
== END 2021-07-26 19:02 | disposition home or self-care (01) ==
LOC: ER 16:16
DX: T81.89XA Other complications of procedures, not elsewhere classified, initial encounter (principal); M79.671 Pain in right foot; G89.29 Other chronic pain; E10.9 Type 1 diabetes mellitus without complications; N19 Unspecified kidney failure; Z86.718 Personal history of other venous thrombosis and embolism; Z88.8 Allergy status to other drugs, medicaments and biological substances
CPT/HCPCS: 99283

== ENCOUNTER 2022-02-10 07:07 | Inpatient (IN) | payer MEDICARE, MEDICAID ==
[~2022-02-10] VITALS: Ht 190.5 cm; Wt 80.0 kg
[~2022-02-10 07:07] MED LIST changes: +APIX5TAB PO; +HYDROmorphone 2 MG/ML INJ. IVP PRN; +OXYC5TAB2 PO; +PROCHLORPERAZINE 10 MG/2 ML VIAL. IVP PRN; +fentaNYL PF VIAL 100 MCG/2 ML VIAL IVP PRN
[2022-02-10 07:44] VITALS: BP 154/80
[2022-02-10 08:21] LABS: BASO % 1 % (0-3); EOS # 0.1 x10^3/uL (0.0-0.7); EOS % 1 % (0-3); HEMOGLOBIN 9.6 g/dL (13.0-17.5); LYMPH # 0.6 x10^3/uL (1.0-4.8); LYMPH % 12 % (24-48); MEAN CORPUSCULAR HEMOGLOBIN 27 pg (25-35); MEAN CORPUSCULAR HGB CONC 32 g/dL (31-37); MEAN CORPUSCULAR VOLUME 84 fL (79-100); MONO # 0.5 x10^3/uL (0.0-1.1); MONO % 11 % (0-9); NEUT # 3.5 x10^3/uL (1.8-7.7); NEUT % 74 % (31-73); PLATELET COUNT 171 x10^3/uL (140-400); RED BLOOD COUNT 3.57 x10^6/uL (4.30-5.70); RED CELL DISTRIBUTION WIDTH 14.6 % (11.5-14.5); WHITE BLOOD COUNT 4.7 x10^3/uL (4.0-11.0)
[2022-02-10] MEDS: IV RINGERS,LACTATED 1000ML 1,000 ML IV SCH ×2 (08:23→10:52)
[2022-02-10 08:35] LABS: CALCIUM 9.7 mg/dL (8.5-10.1); CREATININE 6.3 mg/dL (0.7-1.3); GFR 10.8; POTASSIUM 3.6 mmol/L (3.5-5.1)
--- NOTE | 2022-02-10 09:08 | PDOC ---
Provider Note Date of Service: DATE: 02/10/22 TIME: 09:07 Provider Note Provider Note Patient seen in preoperative area. PLan for debridement of foot wound and left fourth toe amputation. Patient having signfiicant difficulty with mobiity at home and limited home resources. He is interested in rehab facility placement. 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 Justicifation of Admission Dx: Justifications for Admission: Justification of Admission Dx: Yes Chronic Renal Failure: Electrolyte Abnormality THALIA GREENWOOD MD February 10, 2022 09:08
[2022-02-10] MEDS ORDERED: fentaNYL PF VIAL 100 MCG/2 ML VIAL ONE (09:15)
[2022-02-10] MEDS ORDERED: PROPOFOL 10 MG/ML (20ML) VIAL. IV ONE (09:16)
[2022-02-10] MEDS ORDERED: LIDOCAINE 2% PF 5 ML VIAL. ONE (09:16)
[2022-02-10] MEDS ORDERED: ONDANSETRON PF 4 MG/2 ML VIAL. ONE (09:16)
[2022-02-10] MEDS ORDERED: LIDOCAINE 1% Multi-Dose 20 ML VIAL. ONE (09:43)
[2022-02-10] MEDS ORDERED: PHENYLEPHRINE in 0.9% NACL PF 1 MG/10 ML SYRINGE. IV ONE ×2 (10:01→10:25)
[2022-02-10] MEDS ORDERED: ceFAZolin SODIUM IV Push 1 GM VIAL. IVP ONE (10:12)
[2022-02-10] MEDS ORDERED: SEVOFLURANE 61 TO 120 MINUTES. IH ONE (10:18)
[2022-02-10] MEDS ORDERED: ceFAZolin IM 1 GM VIAL IM ONE (10:18)
--- NOTE | 2022-02-10 10:48 | PDOC4 ---
OPERATIVE NOTE Pre-Op Diagnosis: 1. Poorly healing left second and third toe amputation site 2. Necrotic left fourth and fifth toe 3. ESRD on HD 4. PAD s/p left sfa atherectomy and stent Post-Op Diagnosis: Same as preop Procedure Performed: 1. Left fourth and fifth toe amputation with metatarsal heads 2. Sharp excisional debridement of subcutaneous tissue, muscle and bone, 6x2x1.5 cm 3. application of negative pressure wound vac therapy <50 cm2, 6x2x1.5 cm Surgeon: Priscilla Callejas Anesthesia Type: General mask Blood Loss: 50 cc Specimans Obtained: Foot wound cultures, deep, left foot wound Findings: There was non viable subcutaneous tissue within the wound bed at the previous second and third toe amputation sites. Granulation tissue is forming over the 2nd and third metatarsal bones where they were previously transected. Nonviable tissue was debrided back to viable muscle and fascia. There was necrosis of the skin on the fourth and fifth toes. Fourth and fifth toe amputations with resection of the metatarsal heads was performed. Wound vac was then applied Complications: None Operative Note: Patient brought to theater. Positioned supine. Induced under general mask anesthesia. Antibiotics administered and timeout performed. left foot was prepped and draped with betadine. 1% lidocaine was injected along the wound bed and the 4th and 5th toes. I recognized at this time that there was necrosis of the skin of the fifth toe with a large ulceration necessitating removal of the fifth toe as well. The fourth toe was also having evidence of skin necrosis. I then used a 15 blade to excise and ellipse of skin around the MTP joints of the 4th and fifth toes. Dissection was taken sharply straight to bone. The 4th and 5th toes were then dislocated sharply at the fourth and 5th metatarsophalangeal joints. The plantar tendons were transected. The toes were passed off for disposal. There was a reasonable amount of bleeding during dissection. A ronguer was used to resect the metatarsal head of the 4th and 5th metatarsals. Ronguer was then used to debride back nonviable subcutaneous tissue and fascia within the previous wound of the second and third toe amputation site. This was debrided back sharply to healthy viable bleeding tissues. The exposed metatarsal bones had developing granulation tissues and appeared viable. The wound was copiously irrigated with antibiotic solution. 3-0 vicryl was then used to approximate muscle and fascia over the transected 4th and 5th metatarsal heads. The skin was left open. Hemostasis was then assured. Final wound measured 6x2x1.5 cm. A black granulofoam spong was then cut to fit and a wound vac applied in standard fashion with a bridging sponge onto the dorsum of the foot. The wound vac was connected to suction with good seal noted at 125 mm Hg. PRISCILLA CALLEJAS MD February 10, 2022 10:48
[2022-02-10] MEDS ORDERED: INSULIN LISPRO 100 UNIT/ML 3ML VIAL for OP,RR ONLY. SQ PRN (11:00)
[2022-02-10] MEDS ORDERED: MORPHINE SULFATE 2 MG/ML INJ. ONE (11:03)
[2022-02-10] MEDS: MORPHINE SULFATE 2 MG/ML INJ. IVP PRN ×2 (11:18→11:31)
--- NOTE | 2022-02-10 11:35 | PDOC1 ---
History and Physical Date of Service: DOS: DATE: 02/10/22 TIME: 11:35 Chief Complaint: Chief Complain: Postop admission History of Present Illness: HPI: Contacted by PACU for consult on patient after left toes amputation. Seen in PACU pain controlled doing well. Will need placement. Past Medical/Surgical History: PMH/PSH: Diabetes ESRD Allergies: Allergies: Coded Allergies: prednisone (Verified Allergy, Intermediate, 02/05/22) PT STATES LEG BECAME SWOLLEN FROM TAKING AND GOT A BLOOD CLOT Family History: Family History: Diabetes Social History: Social History: Denies alcohol drug use former smoker Current Medications: Current Medications Current Medications Fentanyl Citrate (Fentanyl 2ml Vial) 25 mcg PRN Q5MIN PRN IVP MILD PAIN 1-3; Start 02/10/22 at 06:00; Stop 02/10/22 at 18:00 Fentanyl Citrate (Fentanyl 2ml Vial) 50 mcg PRN Q5MIN PRN IVP MODERATE PAIN 4- 6; Start 02/10/22 at 06:00; Stop 02/10/22 at 18:00 Morphine Sulfate (Morphine Sulfate) 1 mg PRN Q10MIN PRN IVP SEVERE PAIN 7-10 Last administered on 02/10/22at 11:31; Start 02/10/22 at 06:00; Stop 02/10/22 at 18:00 Ringer's Solution 1,000 ml @ 30 mls/hr Q24H IV Last administered on 02/10/22at 08:23; Start 02/10/22 at 06:00; Stop 02/10/22 at 17:59 Hydromorphone HCl (Dilaudid) 0.5 mg PRN Q10MIN PRN IVP SEVERE PAIN 7-10, 2nd CHOICE; Start 02/10/22 at 06:00; Stop 02/10/22 at 18:00 Prochlorperazine Edisylate (Compazine) 5 mg PACU PRN PRN IVP NAUSEA, MRX1; Start 02/10/22 at 06:00; Stop 02/10/22 at 18:00 Cefazolin Sodium/ Dextrose 50 ml @ 100 mls/hr 1X PREOP PRN IV PRIOR TO PROCEDURE Last administered on 02/10/22at 09:38; Start 02/10/22 at 06:00; Stop 02/10/22 at 18:00 Al Hydroxide/Mg Hydroxide (Mylanta Plus Xs) 30 ml PRN Q3HRS PRN PO HEARTBURN / GAS; Start 02/10/22 at 13:00 Calcium Carbonate/ Glycine (Tums) 500 mg PRN Q3HRS PRN PO INDIGESTION; Start 02/10/22 at 13:00 Diphenhydramine HCl (Benadryl) 25 mg PRN Q6HRS PRN PO ITCHING; Start 02/10/22 at 13:00 Diphenhydramine HCl (Benadryl) 25 mg PRN Q6HRS PRN IV ITCHING; Start 02/10/22 at 13:00 Zolpidem Tartrate (Ambien) 5 mg PRN QHS PRN PO INSOMNIA; Start 02/10/22 at 20:00 Naloxone HCl (Narcan) 0.1 mg PRN Q2MIN PRN IV SEE ADMIN INSTRUCTIONS; Start 02/10/22 at 13:00 Heparin Sodium (Porcine) (Heparin Sodium) 5,000 unit Q8HRS SQ ; Start 02/10/22 at 13:00 Sodium Chloride (Normal Saline Flush) 3 ml QSHIFT PRN IV AFTER MEDS AND BLOOD DRAWS; Start 02/10/22 at 13:00 Acetaminophen/ Hydrocodone Bitart (Lortab 5/325) 1 tab PRN Q4HRS PRN PO MILD PAIN 1-3; Start 02/10/22 at 09:00; Status UNV Acetaminophen/ Hydrocodone Bitart (Lortab 5/325) 2 tab PRN Q4HRS PRN PO MODERATE PAIN, SEVERE PAIN; Start 02/10/22 at 09:00; Status UNV Senna/Docusate Sodium (Senna Plus) 1 tab BID PO ; Start 02/10/22 at 09:00; Status UNV Docusate Sodium (Colace) 100 mg BID PO ; Start 02/10/22 at 09:00; Status UNV Magnesium Hydroxide (Milk Of Magnesia) 2,400 mg PRN Q12HR PRN PO CONSTIPATION; Start 02/10/22 at 09:00; Status UNV Bisacodyl (Dulcolax Supp) 10 mg PRN DAILY PRN [place] CONSTIPATION; Start 02/10/22 at 09:00; Status UNV Ondansetron HCl (Zofran) 4 mg PRN Q6HRS PRN IVP NARAFAELAA, 1ST CHOICE; Start 02/10/22 at 09:00; Status UNV Prochlorperazine Edisylate (Compazine) 5 mg PRN Q6HRS PRN IV N/V, 2nd Choice, MR X1; Start 02/10/22 at 09:00; Status UNV Prochlorperazine (Compazine) 25 mg PRN Q12HR PRN AR Nausea/Vomiting, 3rd Choice; Start 02/10/22 at 09:00; Status UNV Fentanyl Citrate (Fentanyl 2ml Vial) 100 mcg STK-MED ONCE .ROUTE ; Start 02/10/22 at 09:15; Stop 02/10/22 at 09:15; Status DC Lidocaine HCl (Lidocaine Pf 2% Vial) 5 ml STK-MED ONCE .ROUTE ; Start 02/10/22 at 09:16; Stop 02/10/22 at 09:16; Status DC Propofol (Diprivan) 200 mg STK-MED ONCE IV ; Start 02/10/22 at 09:16; Stop 02/10/22 at 09:16; Status DC Lidocaine HCl (Lidocaine 1% 20ml Vial) 20 ml STK-MED ONCE .ROUTE Last administered on 02/10/22at 10:18; Start 02/10/22 at 09:43; Stop 02/10/22 at 09:44; Status DC Phenylephrine HCl (PHENYLEPHRINE in 0.9% NACL PF) 1 mg STK-MED ONCE IV ; Start 02/10/22 at 10:01; Stop 02/10/22 at 10:01; Status DC Cefazolin Sodium (Ancef) 1 gm STK-MED ONCE IVP ; Start 02/10/22 at 10:12; Stop 02/10/22 at 10:12; Status DC Sevoflurane (Ultane) 60 ml STK-MED ONCE IH ; Start 02/10/22 at 10:18; Stop 02/10/22 at 10:18; Status DC Cefazolin Sodium (Ancef Im) 1 gm STK-MED ONCE IM Last administered on 02/10/22at 10:18; Start 02/10/22 at 10:18; Stop 02/10/22 at 10:30; Status DC Phenylephrine HCl (PHENYLEPHRINE in 0.9% NACL PF) 1 mg STK-MED ONCE IV ; Start 02/10/22 at 10:25; Stop 02/10/22 at 10:26; Status DC Insulin Human Lispro (HumaLOG VIAL for OP,RR ONLY) 0-10 units PRN Q1HR PRN SQ PER PROTOCOL Last administered on 02/10/22at 11:21; Start 02/10/22 at 11:00; Stop 02/11/22 at 10:59; Status UNV Morphine Sulfate (Morphine Sulfate) 2 mg STK-MED ONCE .ROUTE ; Start 02/10/22 at 11:03; Stop 02/10/22 at 11:03; Status DC Active Scripts Active Gabapentin 300 Mg Capsule 300 Mg PO QHS 30 Days Oxycodone Hcl Immed.release (Oxycodone Hcl) 5 Mg Tablet 5 Mg PO PRN Q6HRS PRN 3 Days Lantus Solostar (Insulin Glargine,Hum.rec.anlog) 100 Unit/1 Ml Insuln.pen 15 Unit SQ BID 30 Days Admelog (Insulin Lispro) 100 Unit/1 Ml Vial 0 Units SQ TIDWMEALS 30 Days Culturelle (Lactobacillus Rhamnosus Gg) 1 Each Cap.sprink 1 Cap PO BID Senna Lax (Sennosides) 8.6 Mg Tablet 17.2 Mg PO PRN BID PRN Dok (Docusate Sodium) 100 Mg Capsule 100 Mg PO DAILY Amlodipine Besylate 10 Mg Tablet 10 Mg PO DAILY MDD 1 Reported Eliquis (Apixaban) 5 Mg Tablet 1 Tab PO BID Nephro-Rakesh Tablet (Folic Acid/Vitamin B Comp W-C) 0.8 Mg Tablet 1 Tab PO DAILY ROS: Review of Systems Review of System Denies complaints but very lethargic Physical Exam: Vital Signs: Vital Signs Date Time Temp Pulse Resp B/P (MAP) Pulse Ox O2 Delivery O2 Flow Rate FiO2 02/10/22 11:31 20 99 02/10/22 11:18 Room Air 02/10/22 07:55 98.1 89 154/80 98.1 Physcial Exam: GEN: No apparent distress HEENT: Normal cephalic, atraumatic, external auditory canals are patent EYES: Extraocular muscles are intact, pupil are equally round and reactive to light and accommodation MUSCULOSKELETAL: Well developed , well nourished, good range of motion ENDOCRINE: No thyromegaly was palpated LYMPHATICS: No cervical chain or axillary nodes were noted HEMATOPOIETIC: No bruising NECK: Supple, no JVD, no thyromegaly was noted LUNGS: Clear to auscultation in all lung khan without rhonchi or wheezing HEART: RRR, S!, S2 present. Peripheral pulses intact, no obvious murmurs noted ABDOMEN: Soft, nontender. Positive bowel sounds, no organomegaly, normal bowel sounds EXTREMITIES: Without clubbing, cyanosis, or edema. Pedal pulses intact. Negative Homans sign NEUROLOGIC: Normal speech and tone. A&O x 3, moves all extremities, no obvious focal deficits PSYCHIATRIC: Normal affect, normal mood. Stable SKIN: No ulcerations or rashes, good skin turgor, no jaundice VASCULAR: Good capillary refill, neurovascular bundle appears to be intact Labs: Labs: Laboratory Tests Test 02/10/22 08:00 02/10/22 08:03 02/10/22 08:10 02/10/22 11:14 POC SARS CoV-2 Antigen Negative (NEGATIVE) Glucose (Fingerstick) 248 mg/dL (70-99) 249 mg/dL (70-99) White Blood Count 4.7 x10^3/uL (4.0-11.0) Red Blood Count 3.57 x10^6/uL (4.30-5.70) Hemoglobin 9.6 g/dL (13.0-17.5) Hematocrit 30.0 % (39.0-53.0) Mean Corpuscular Volume 84 fL (79-100) Mean Corpuscular Hemoglobin 27 pg (25-35) Mean Corpuscular Hemoglobin Concent 32 g/dL (31-37) Red Cell Distribution Width 14.6 % (11.5-14.5) Platelet Count 171 x10^3/uL (140-400) Neutrophils (%) (Auto) 74 % (31-73) Lymphocytes (%) (Auto) 12 % (24-48) Monocytes (%) (Auto) 11 % (0-9) Eosinophils (%) (Auto) 1 % (0-3) Basophils (%) (Auto) 1 % (0-3) Neutrophils # (Auto) 3.5 x10^3/uL (1.8-7.7) Lymphocytes # (Auto) 0.6 x10^3/uL (1.0-4.8) Monocytes # (Auto) 0.5 x10^3/uL (0.0-1.1) Eosinophils # (Auto) 0.1 x10^3/uL (0.0-0.7) Basophils # (Auto) 0.0 x10^3/uL (0.0-0.2) Sodium Level 137 mmol/L (136-145) Potassium Level 3.6 mmol/L (3.5-5.1) Chloride Level 97 mmol/L (98-107) Carbon Dioxide Level 27 mmol/L (21-32) Anion Gap 13 (6-14) Blood Urea Nitrogen 20 mg/dL (8-26) Creatinine 6.3 mg/dL (0.7-1.3) Estimated GFR (Cockcroft-Gault) 10.8 Glucose Level 292 mg/dL (70-99) Calcium Level 9.7 mg/dL (8.5-10.1) Laboratory Tests Test 02/10/22 08:00 02/10/22 08:03 02/10/22 08:10 02/10/22 11:14 POC SARS CoV-2 Antigen Negative (NEGATIVE) Glucose (Fingerstick) 248 mg/dL (70-99) 249 mg/dL (70-99) White Blood Count 4.7 x10^3/uL (4.0-11.0) Red Blood Count 3.57 x10^6/uL (4.30-5.70) Hemoglobin 9.6 g/dL (13.0-17.5) Hematocrit 30.0 % (39.0-53.0) Mean Corpuscular Volume 84 fL (79-100) Mean Corpuscular Hemoglobin 27 pg (25-35) Mean Corpuscular Hemoglobin Concent 32 g/dL (31-37) Red Cell Distribution Width 14.6 % (11.5-14.5) Platelet Count 171 x10^3/uL (140-400) Neutrophils (%) (Auto) 74 % (31-73) Lymphocytes (%) (Auto) 12 % (24-48) Monocytes (%) (Auto) 11 % (0-9) Eosinophils (%) (Auto) 1 % (0-3) Basophils (%) (Auto) 1 % (0-3) Neutrophils # (Auto) 3.5 x10^3/uL (1.8-7.7) Lymphocytes # (Auto) 0.6 x10^3/uL (1.0-4.8) Monocytes # (Auto) 0.5 x10^3/uL (0.0-1.1) Eosinophils # (Auto) 0.1 x10^3/uL (0.0-0.7) Basophils # (Auto) 0.0 x10^3/uL (0.0-0.2) Sodium Level 137 mmol/L (136-145) Potassium Level 3.6 mmol/L (3.5-5.1) Chloride Level 97 mmol/L (98-107) Carbon Dioxide Level 27 mmol/L (21-32) Anion Gap 13 (6-14) Blood Urea Nitrogen 20 mg/dL (8-26) Creatinine 6.3 mg/dL (0.7-1.3) Estimated GFR (Cockcroft-Gault) 10.8 Glucose Level 292 mg/dL (70-99) Calcium Level 9.7 mg/dL (8.5-10.1) Assessment/Plan Assessment/Plan Left hypertension history of diabetes ESRD -Home meds resumed as indicated -Nephrology consult given ESRD -Holding off antibiotics until any culture results. Defer to vascular in meantime -PT OT -Will need placement. Justifications for Admission Other Justification Right foot wound infection TIM ESQUIVEL MD February 10, 2022 11:35
[2022-02-10] MEDS ORDERED: DEXTROSE 50% 25 GM / 50ML DISP.SYRIN. IV PRN (11:45)
[2022-02-10 12:05] VITALS: BP 126/58
[2022-02-10] MEDS: HEPARIN for SUB-Q USE 5,000 UNIT/ML VIAL. SQ SCH ×2 (12:32→21:28)
[2022-02-10] MEDS: oxyCODONE/APAP 5/325 1 TAB TABLET PO PRN ×3 (12:35→20:56)
[2022-02-10] MEDS ORDERED: HYDROcodone/APAP 5/325MG 1 TAB TABLET PO PRN ×2 (13:00)
[2022-02-10] MEDS ORDERED: NALOXONE 0.4 MG/ML VIAL. IV PRN (13:00)
[2022-02-10] MEDS ORDERED: diphenhydrAMINE 50 MG/ML VIAL IV PRN (13:00)
[2022-02-10] MEDS ORDERED: 0.9 % SODIUM CHLORIDE 10 ML DISP.SYRIN. IV PRN (13:00)
[2022-02-10] MEDS ORDERED: PROCHLORPERAZINE 25 MG SUPP.RECT. PR PRN (13:00)
[2022-02-10] MEDS ORDERED: BISACODYL 10 MG SUPP.RECT. PR PRN (13:00)
[2022-02-10] MEDS ORDERED: CALCIUM CARBONATE 500 MG TAB.CHEW PO PRN (13:00)
[2022-02-10] MEDS ORDERED: PROCHLORPERAZINE 10 MG/2 ML VIAL. IV PRN (13:00)
[2022-02-10] MEDS ORDERED: MAG HYDROX/ALUMINUM HYD/SIMETH 30 ML ORAL.SUSP PO PRN (13:00)
[2022-02-10] MEDS ORDERED: ONDANSETRON PF 4 MG/2 ML VIAL. IVP PRN (13:00)
[2022-02-10] MEDS ORDERED: MAGNESIUM HYDROXIDE 2,400 MG/30 ML ORAL.SUSP. PO PRN (13:00)
[2022-02-10] MEDS ORDERED: diphenhydrAMINE HCL 25 MG CAPSULE PO PRN (13:00)
[2022-02-10 15:00] VITALS: BP 86/51
--- NOTE | 2022-02-10 16:35 | RAD ---
Left lower extremity arterial duplex Doppler ultrasound HISTORY: Status post left toe amputation. History of peripheral arterial disease on prior exam. No ot her clinical history is provided. COMPARISON: Left leg arterial Doppler ultrasound January 19, 2022 FINDINGS: Plaquing of the leg arteries. The peroneal artery cannot be visualized similar to the prior exam which could be due to its deep location within the calf or could be due to occlusion. The remai ariel left leg arteries demonstrate patent flow without occlusion. There are monophasic arterial wavef orms throughout the left leg arteries however the systolic peaks remain brisk, with no tardus parvus waveform evident. Elevated flow velocity of the common femoral artery which has increased since the p rior exam almost threefold suggesting a significant stenosis approaching 75%. Individual flow velocit ies are described below. Common femoral artery: 305 cm/s Profunda femoral artery: 49 cm/s Superficial femoral artery: 164 cm/s upper thigh, 187 cm/s mid thigh, 72 cm/s lower thigh Popliteal artery: 50 cm/s Posterior tibial artery: 78 cm/s upper calf, 137 cm/s lower calf Peroneal artery: Nonvisualized Anterior tibial artery: 69 cm/s Dorsalis pedis artery: 88 cm/s Impression: 1. Left peroneal artery within the calf is not visualized, similar to the prior exam, occlusion of th is vessel is not excluded. 2. Since the prior exam there is increased flow velocity of the left common femoral artery currently of 305 cm/s, previously was 114 cm/s, which may be indicative of a hemodynamically significant stenos is approaching 75%. See above. 3. Peripheral vascular disease with plaquing of the leg arteries and diffuse monophasic arterial wave forms throughout the leg. Electronically signed by: Hossein Tineo MD (02/10/2022 4:32 PM) [facility]
[2022-02-10] MEDS: INSULIN LISPRO 300 UNITS/3 ML VIAL. SQ SCH (17:08)
[2022-02-10] MEDS ORDERED: ZOLPIDEM 5 MG TABLET. PO PRN (20:00)
[2022-02-10] MEDS: DOCUSATE SODIUM 100 MG CAPSULE. PO SCH (20:55)
[2022-02-10] MEDS: GABAPENTIN 300 MG CAPSULE. PO SCH (20:55)
[2022-02-10] MEDS: SENNOSIDES 8.6 MG TABLET PO PRN ×2 (20:55→21:24)
[2022-02-10] MEDS ORDERED: INSULIN GLARGINE SYRINGE. SQ SCH (21:00)
[2022-02-10] MEDS: SENNOSIDES/DOCUSATE 8.6/50MG TABLET. PO SCH (21:00)
[2022-02-10 23:00] VITALS: BP 104/61
[2022-02-11] MEDS: oxyCODONE/APAP 5/325 1 TAB TABLET PO PRN ×5 (01:20→21:39)
[2022-02-11] MEDS: HEPARIN for SUB-Q USE 5,000 UNIT/ML VIAL. SQ SCH ×3 (05:49→22:00)
--- NOTE | 2022-02-11 05:51 | NUR ---
Pt refused morning dose of heparin said he te takes it after dialysis educated on the need and importance of the medication
[2022-02-11 07:00] VITALS: BP 107/67
[2022-02-11] MEDS ORDERED: ALBUMIN HUMAN 25% 200 ML IV PRN (07:45)
[2022-02-11] MEDS ORDERED: DIALYSIS PATIENT. MC PRN ×2 (07:45)
[2022-02-11] MEDS ORDERED: IV NORMAL SALINE 1000ML BAG 1,000 ML IV PRN ×2 (07:45)
[2022-02-11] MEDS: INSULIN LISPRO 300 UNITS/3 ML VIAL. SQ SCH ×3 (08:00→17:13)
[2022-02-11] MEDS: SENNOSIDES/DOCUSATE 8.6/50MG TABLET. PO SCH ×2 (09:00→21:00)
[2022-02-11] MEDS ORDERED: DOCUSATE SODIUM 100 MG CAPSULE. PO SCH (09:00)
[2022-02-11] MEDS: INSULIN GLARGINE SYRINGE. SQ SCH ×2 (09:00→21:47)
--- NOTE | 2022-02-11 11:27 | PDOC2 ---
CONSULT Date of Consult Date of Consult DATE: 02/11/22 TIME: : Reason for Consult Reason for Consult: ESRD Referring Physician Referring Physician: SIERRA Identification/Chief Complaint Chief Complaint LEFT FOOT WOUND Source Source: Chart review, Patient History of Present Illness Reason for Visit: THIS IS A 66 YR OLD PT WITH ESRD ON OP HD MWF. HAS A RIGHT UE AV ACCESS FOR HD. LABS C/W ESRD. HE HAS ESRD DUE TO DM II AND HTN. HE UNDERWENT DEBRIDEMENT OF HIS LEFT FOOT AND LEFT 4TH AND 5TH TOE AMPUTATION YESTERDAY. DRAINS IN PLACE Past Medical History Cardiovascular: HTN Pulmonary: No pertinent hx CENTRAL NERVOUS SYSTEM: Other GI: No pertinent hx Heme/Onc: Anemia NOS, Other Hepatobiliary: Hep A/B/C Psych: No pertinent hx, Addictions Rheumatologic: No pertinent hx Infectious disease: HIV Renal/: Chronic renal insuff, Chronic renal failure, Hematuria Endocrine: Diabetes, Hyperparathyroidism Past Surgical History Past Surgical History: Cholecystectomy, Colectomy, Other Family History Family History: No Significant, Diabetes, Hypertension Social History ALCOHOL: none Drugs: Cocaine, Crystal meth Lives: with Family Current Medications Current Medications Current Medications Fentanyl Citrate (Fentanyl 2ml Vial) 25 mcg PRN Q5MIN PRN IVP MILD PAIN 1-3; Start 02/10/22 at 06:00; Stop 02/10/22 at 18:00; Status DC Fentanyl Citrate (Fentanyl 2ml Vial) 50 mcg PRN Q5MIN PRN IVP MODERATE PAIN 4- 6; Start 02/10/22 at 06:00; Stop 02/10/22 at 18:00; Status DC Morphine Sulfate (Morphine Sulfate) 1 mg PRN Q10MIN PRN IVP SEVERE PAIN 7-10 Last administered on 02/10/22at 11:31; Start 02/10/22 at 06:00; Stop 02/10/22 at 18:00; Status DC Ringer's Solution 1,000 ml @ 30 mls/hr Q24H IV Last administered on 02/10/22at 08:23; Start 02/10/22 at 06:00; Stop 02/10/22 at 17:59; Status DC Hydromorphone HCl (Dilaudid) 0.5 mg PRN Q10MIN PRN IVP SEVERE PAIN 7-10, 2nd CHOICE; Start 02/10/22 at 06:00; Stop 02/10/22 at 18:00; Status DC Prochlorperazine Edisylate (Compazine) 5 mg PACU PRN PRN IVP NAUSEA, MRX1; Sta rt 02/10/22 at 06:00; Stop 02/10/22 at 18:00; Status DC Cefazolin Sodium/ Dextrose 50 ml @ 100 mls/hr 1X PREOP PRN IV PRIOR TO PROCEDURE Last administered on 02/10/22at 09:38; Start 02/10/22 at 06:00; Stop 02/10/22 at 18:00; Status DC Al Hydroxide/Mg Hydroxide (Mylanta Plus Xs) 30 ml PRN Q3HRS PRN PO HEARTBURN / GAS; Start 02/10/22 at 13:00 Calcium Carbonate/ Glycine (Tums) 500 mg PRN Q3HRS PRN PO INDIGESTION; Start 02/10/22 at 13:00 Diphenhydramine HCl (Benadryl) 25 mg PRN Q6HRS PRN PO ITCHING; Start 02/10/22 at 13:00 Diphenhydramine HCl (Benadryl) 25 mg PRN Q6HRS PRN IV ITCHING; Start 02/10/22 at 13:00 Zolpidem Tartrate (Ambien) 5 mg PRN QHS PRN PO INSOMNIA; Start 02/10/22 at 20:00 Naloxone HCl (Narcan) 0.1 mg PRN Q2MIN PRN IV SEE ADMIN INSTRUCTIONS; Start 02/10/22 at 13:00 Heparin Sodium (Porcine) (Heparin Sodium) 5,000 unit Q8HRS SQ Last administered on 02/10/22at 21:28; Start 02/10/22 at 13:00 Sodium Chloride (Normal Saline Flush) 3 ml QSHIFT PRN IV AFTER MEDS AND BLOOD DRAWS; Start 02/10/22 at 13:00 Acetaminophen/ Hydrocodone Bitart (Lortab 5/325) 1 tab PRN Q4HRS PRN PO MILD PAIN 1-3; Start 02/10/22 at 13:00; Stop 02/10/22 at 12:14; Status DC Acetaminophen/ Hydrocodone Bitart (Lortab 5/325) 2 tab PRN Q4HRS PRN PO MODERATE PAIN, SEVERE PAIN; Start 02/10/22 at 13:00; Stop 02/10/22 at 12:14; Status DC Senna/Docusate Sodium (Senna Plus) 1 tab BID PO ; Start 02/10/22 at 21:00 Docusate Sodium (Colace) 100 mg BID PO Last administered on 02/10/22at 20:55; Start 02/10/22 at 21:00 Magnesium Hydroxide (Milk Of Magnesia) 2,400 mg PRN Q12HR PRN PO CONSTIPATION; Start 02/10/22 at 13:00 Bisacodyl (Dulcolax Supp) 10 mg PRN DAILY PRN [place] CONSTIPATION; Start 02/10/22 at 13:00 Ondansetron HCl (Zofran) 4 mg PRN Q6HRS PRN IVP NAUESA, 1ST CHOICE; Start 02/10/22 at 13:00 Prochlorperazine Edisylate (Compazine) 5 mg PRN Q6HRS PRN IV N/V, 2nd Choice, MR X1; Start 02/10/22 at 13:00 Prochlorperazine (Compazine) 25 mg PRN Q12HR PRN OH Nausea/Vomiting, 3rd Choice; Start 02/10/22 at 13:00 Fentanyl Citrate (Fentanyl 2ml Vial) 100 mcg STK-MED ONCE .ROUTE ; Start 02/10/22 at 09:15; Stop 02/10/22 at 09:15; Status DC Lidocaine HCl (Lidocaine Pf 2% Vial) 5 ml STK-MED ONCE .ROUTE ; Start 02/10/22 at 09:16; Stop 02/10/22 at 09:16; Status DC Propofol (Diprivan) 200 mg STK-MED ONCE IV ; Start 02/10/22 at 09:16; Stop 02/10/22 at 09:16; Status DC Lidocaine HCl (Lidocaine 1% 20ml Vial) 20 ml STK-MED ONCE .ROUTE Last administered on 02/10/22at 10:18; Start 02/10/22 at 09:43; Stop 02/10/22 at 09:44; Status DC Phenylephrine HCl (PHENYLEPHRINE in 0.9% NACL PF) 1 mg STK-MED ONCE IV ; Start 02/10/22 at 10:01; Stop 02/10/22 at 10:01; Status DC Cefazolin Sodium (Ancef) 1 gm STK-MED ONCE IVP ; Start 02/10/22 at 10:12; Stop 02/10/22 at 10:12; Status DC Sevoflurane (Ultane) 60 ml STK-MED ONCE IH ; Start 02/10/22 at 10:18; Stop 02/10/22 at 10:18; Status DC Cefazolin Sodium (Ancef Im) 1 gm STK-MED ONCE IM Last administered on 02/10/22at 10:18; Start 02/10/22 at 10:18; Stop 02/10/22 at 10:30; Status DC Phenylephrine HCl (PHENYLEPHRINE in 0.9% NACL PF) 1 mg STK-MED ONCE IV ; Start 02/10/22 at 10:25; Stop 02/10/22 at 10:26; Status DC Insulin Human Lispro (HumaLOG VIAL for OP,RR ONLY) 0-10 units PRN Q1HR PRN SQ PER PROTOCOL Last administered on 02/10/22at 11:21; Start 02/10/22 at 11:00; Stop 02/10/22 at 18:00; Status DC Morphine Sulfate (Morphine Sulfate) 2 mg STK-MED ONCE .ROUTE ; Start 02/10/22 at 11:03; Stop 02/10/22 at 11:03; Status DC Ondansetron HCl (Zofran) 4 mg STK-MED ONCE .ROUTE ; Start 02/10/22 at 09:16; Stop 02/10/22 at 11:36; Status DC Amlodipine Besylate (Norvasc) 10 mg DAILY PO ; Start 02/11/22 at 09:00 Docusate Sodium (Colace) 100 mg DAILY PO ; Start 02/11/22 at 09:00; Status UNV Vitamin B Complex/ Vitamin C (Tiffani-Rakesh) 1 tab DAILY PO ; Start 02/11/22 at 09:00 Gabapentin (Neurontin) 300 mg QHS PO Last administered on 02/10/22at 20:55; Start 02/10/22 at 21:00 Sennosides (Senna) 17.2 mg PRN BID PRN PO CONSTIPATION Last administered on 02/10/22at 21:24; Start 02/10/22 at 13:00 Insulin Glargine (Lantus Syringe) 15 unit BID SQ Last administered on 02/10/22at 21:03; Start 02/10/22 at 21:00; Stop 02/11/22 at 08:51; Status DC Insulin Human Lispro (HumaLOG) 0-7 UNITS TIDWMEALS SQ Last administered on 02/10/22at 17:08; Start 02/10/22 at 17:00 Dextrose (Dextrose 50%-Water Syringe) 12.5 gm PRN Q15MIN PRN IV SEE COMMENTS; Start 02/10/22 at 11:45 Oxycodone/ Acetaminophen (Percocet 5/325) 1 tab PRN Q4HRS PRN PO MILD PAIN 1-3; Start 02/10/22 at 12:15 Oxycodone/ Acetaminophen (Percocet 5/325) 2 tab PRN Q4HRS PRN PO MODERATE PAIN, SEVERE PAIN Last administered on 02/11/22at 10:27; Start 02/10/22 at 12:15 Sodium Chloride 1,000 ml @ 1,000 mls/hr Q1H PRN IV hypotension; Start 02/11/22 at 07:45; Stop 02/11/22 at 13:44 Albumin Human 200 ml @ 200 mls/hr 1X PRN PRN IV Hypotension; Start 02/11/22 at 07:45; Stop 02/11/22 at 13:44 Sodium Chloride 1,000 ml @ 400 mls/hr Q2H30M PRN IV PATENCY; Start 02/11/22 at 07:45; Stop 02/11/22 at 19:44 Info (PHARMACY MONITORING -- do not chart) 1 each PRN DAILY PRN MC SEE COMMENTS; Start 02/11/22 at 07:45 Info (PHARMACY MONITORING -- do not chart) 1 each PRN DAILY PRN MC SEE COMMENTS; Start 02/11/22 at 07:45; Status UNV Insulin Glargine (Lantus Syringe) 25 unit BID SQ ; Start 02/11/22 at 09:00 Active Scripts Active Gabapentin 300 Mg Capsule 300 Mg PO QHS 30 Days Oxycodone Hcl Immed.release (Oxycodone Hcl) 5 Mg Tablet 5 Mg PO PRN Q6HRS PRN 3 Days Lantus Solostar (Insulin Glargine,Hum.rec.anlog) 100 Unit/1 Ml Insuln.pen 15 Unit SQ BID 30 Days Admelog (Insulin Lispro) 100 Unit/1 Ml Vial 0 Units SQ TIDWMEALS 30 Days Culturelle (Lactobacillus Rhamnosus Gg) 1 Each Cap.sprink 1 Cap PO BID Senna Lax (Sennosides) 8.6 Mg Tablet 17.2 Mg PO PRN BID PRN Dok (Docusate Sodium) 100 Mg Capsule 100 Mg PO DAILY Amlodipine Besylate 10 Mg Tablet 10 Mg PO DAILY MDD 1 Reported Eliquis (Apixaban) 5 Mg Tablet 1 Tab PO BID Nephro-Rakesh Tablet (Folic Acid/Vitamin B Comp W-C) 0.8 Mg Tablet 1 Tab PO DAILY Allergies Allergies: Coded Allergies: prednisone (Verified Allergy, Intermediate, 02/05/22) PT STATES LEG BECAME SWOLLEN FROM TAKING AND GOT A BLOOD CLOT ROS General: YES: Fatigue, Malaise, Appetite PSYCHOLOGICAL ROS: YES: Anxiety, Depression Eyes: Yes Decreased vision HEENT: YES: [place] ALLERGY AND IMMUNOLOGY: YES: Seasonal Allergies Respiratory: YES: Cough Gastrointestinal: Yes Constipation Genitourinary: YES Other (ANURIA) Musculoskeletal: Yes Joint Pain, Yes Joint Stiffness, Yes Muscular Weakness Neurological: Yes Weakness Skin: Yes Dry Skin, Yes Skin Lesion Changes Physical Exam General: Alert, Oriented X3, Cooperative, No acute distress HEENT: Atraumatic, PERRLA Lungs: Clear to auscultation Heart: Regular rate Abdomen: Normal bowel sounds, Soft, No tenderness Extremities: Other (LEFT FOOT DRAIN) Skin: No rashes, No breakdown Neuro: Normal speech Psych/Mental Status: Other (FLAT) MUSCULOSKELETAL: No swelling, Other (RIGHT ARM AV ACCESS WITH A GOOD THRILL AND BRUIT) Vitals VITALS Vital Signs Date Time Temp Pulse Resp B/P (MAP) Pulse Ox O2 Delivery O2 Flow Rate FiO2 02/11/22 10:27 Room Air 02/11/22 07:00 98.0 103 20 107/67 (80) 99 98.0 Labs Labs Laboratory Tests Test 02/10/22 08:00 02/10/22 08:03 02/10/22 08:10 02/10/22 11:14 POC SARS CoV-2 Antigen Negative (NEGATIVE) Glucose (Fingerstick) 248 mg/dL (70-99) 249 mg/dL (70-99) White Blood Count 4.7 x10^3/uL (4.0-11.0) Red Blood Count 3.57 x10^6/uL (4.30-5.70) Hemoglobin 9.6 g/dL (13.0-17.5) Hematocrit 30.0 % (39.0-53.0) Mean Corpuscular Volume 84 fL (79-100) Mean Corpuscular Hemoglobin 27 pg (25-35) Mean Corpuscular Hemoglobin Concent 32 g/dL (31-37) Red Cell Distribution Width 14.6 % (11.5-14.5) Platelet Count 171 x10^3/uL (140-400) Neutrophils (%) (Auto) 74 % (31-73) Lymphocytes (%) (Auto) 12 % (24-48) Monocytes (%) (Auto) 11 % (0-9) Eosinophils (%) (Auto) 1 % (0-3) Basophils (%) (Auto) 1 % (0-3) Neutrophils # (Auto) 3.5 x10^3/uL (1.8-7.7) Lymphocytes # (Auto) 0.6 x10^3/uL (1.0-4.8) Monocytes # (Auto) 0.5 x10^3/uL (0.0-1.1) Eosinophils # (Auto) 0.1 x10^3/uL (0.0-0.7) Basophils # (Auto) 0.0 x10^3/uL (0.0-0.2) Sodium Level 137 mmol/L (136-145) Potassium Level 3.6 mmol/L (3.5-5.1) Chloride Level 97 mmol/L (98-107) Carbon Dioxide Level 27 mmol/L (21-32) Anion Gap 13 (6-14) Blood Urea Nitrogen 20 mg/dL (8-26) Creatinine 6.3 mg/dL (0.7-1.3) Estimated GFR (Cockcroft-Gault) 10.8 Glucose Level 292 mg/dL (70-99) Calcium Level 9.7 mg/dL (8.5-10.1) Test 02/10/22 12:02 02/10/22 16:50 02/10/22 20:54 02/11/22 07:41 Glucose (Fingerstick) 259 mg/dL (70-99) 193 mg/dL (70-99) 135 mg/dL (70-99) 234 mg/dL (70-99) Laboratory Tests Test 02/10/22 12:02 02/10/22 16:50 02/10/22 20:54 02/11/22 07:41 Glucose (Fingerstick) 259 mg/dL (70-99) 193 mg/dL (70-99) 135 mg/dL (70-99) 234 mg/dL (70-99) Assessment/Plan Assessment/Plan IMP ESRD ANEMIA DM II HTN LEFT FOOT WOUND S/P DEBRIDEMENT AND /5TH TOE AMP PLAN HD TODAY UF TO TW START EPOGEN ANTBIOTICS WOUND CARE WILL FOLLOW MARTINEZ JENSEN MD February 11, 2022 11:27
[2022-02-11] MEDS ORDERED: EPOETIN ALFA 20,000 UNIT/ML VIAL for DIALYSIS PTS. SQ ONE (12:00)
--- NOTE | 2022-02-11 12:41 | NUR ---
SS following for discharge planning. SS reviewed pt chart and discussed with pt RN. Pt is from home and is currently on room air. Pt has outpatient hemodialysis at [facility], ; fax [phone], Wednesday, Wednesday, and Wednesday. COVID19 negative. Nephrology, Wound Care, and Vascular following. Pt had surgery on 02/10/2022. Pt is current on services with [facility], ; fax [phone]. SS will continue to follow for discharge planning.
[2022-02-11] MEDS: FOLIC/VIT B COMP W-C (RENAL) TABLET. PO SCH (13:10)
[2022-02-11] MEDS: DOCUSATE SODIUM 100 MG CAPSULE. PO SCH ×2 (13:11→21:00)
[2022-02-11 15:00] VITALS: BP 85/55
--- NOTE | 2022-02-11 17:03 | NUR ---
Patient's Lantus dose held d/t patient refused to take dose at breakfast prior to dialysis and after dialysis too late in the day since patient takes bid. Gave sliding scale with lunch and dinner.
[2022-02-11 19:00] VITALS: BP 93/60
--- NOTE | 2022-02-11 21:30 | NUR ---
Patient agrees to take 14 units of his Lantus this evening, monitoring...
[2022-02-11] MEDS: GABAPENTIN 300 MG CAPSULE. PO SCH (21:40)
[2022-02-12] MEDS: oxyCODONE/APAP 5/325 1 TAB TABLET PO PRN ×4 (02:53→21:22)
[2022-02-12 03:00] VITALS: BP 105/62
[2022-02-12] MEDS: HEPARIN for SUB-Q USE 5,000 UNIT/ML VIAL. SQ SCH ×3 (06:25→21:14)
[2022-02-12 07:00] VITALS: BP 108/60
[2022-02-12] MEDS: DOCUSATE SODIUM 100 MG CAPSULE. PO SCH ×2 (09:00→21:00)
[2022-02-12] MEDS: SENNOSIDES 8.6 MG TABLET PO PRN (09:03)
[2022-02-12] MEDS: FOLIC/VIT B COMP W-C (RENAL) TABLET. PO SCH (09:03)
[2022-02-12] MEDS: SENNOSIDES/DOCUSATE 8.6/50MG TABLET. PO SCH ×2 (09:03→21:00)
[2022-02-12] MEDS: INSULIN GLARGINE SYRINGE. SQ SCH ×2 (09:15→21:13)
[2022-02-12] MEDS: INSULIN LISPRO 300 UNITS/3 ML VIAL. SQ SCH ×3 (09:18→17:35)
--- NOTE | 2022-02-12 10:37 | PDOC ---
Renal-Progress Notes Subjective Notes Notes NO NEW COMPLAINTS History of Present Illness Hx of present illness STABLE Vitals Vitals Vital Signs Date Time Temp Pulse Resp B/P (MAP) Pulse Ox O2 Delivery O2 Flow Rate FiO2 02/12/22 09:09 Room Air 02/12/22 07:00 97.8 89 18 108/60 (76) 96 97.8 Weight Weight [ ] I.O. Intake and Output Intake and Output 02/12/22 07:00 Intake Total 1120 ml Balance 1120 ml Intake Oral 1120 ml # Voids 2 Labs Labs Laboratory Tests Test 02/11/22 12:56 02/11/22 16:50 02/11/22 20:30 02/12/22 07:39 Glucose (Fingerstick) 177 mg/dL (70-99) 266 mg/dL (70-99) 216 mg/dL (70-99) 287 mg/dL (70-99) Micro Micro Microbiology 02/10/22 Gram Stain - Final, Resulted 02/10/22 Aerobic and Anaerobic Culture, Resulted Pending Review of Systems Constitutional: yes: alert, oriented Ears/Nose/Throat: Yes: no symptom reported Eyes: Yes: no symptom reported Pulmonary: Yes no symptom reported Cardiovascular: Yes no symptom reported Gastrointestional: Yes: no symptom reported Genitourinary: Yes: no symptom reported Musculoskeletal: Yes: joint pain, muscle atrophy Skin: Yes no symptom reported Psychiatric/Neurological: Yes: no symptom reported Endocrine: Yes: no symptom reported Physical Exam General Appearance: no apparent distress Skin: warm Respiratory: bilateral CTA Heart: S1S2 Abdomen: soft, bowel sounds present Genitourinary: bladder flat Extremities: pulses present, atrophy Neurology: alert, Ext weakness Assessment Assessment IMP ESRD ANEMIA DM II HTN LEFT FOOT WOUND S/P DEBRIDEMENT AND 4TH/5TH TOE AMP PLAN HD TOMORROW CONT EPOGEN ANTBIOTICS WOUND CARE WILL FOLLOW MARTINEZ JENSEN MD February 12, 2022 10:37
[2022-02-12 11:00] VITALS: BP 105/56
--- NOTE | 2022-02-12 13:01 | NUR ---
SS following up with discharge planning. SS reviewed pt chart and discussed with pt RN. Pt is currently on room air. Pt has outpatient hemodialysis at [facility], ; fax [phone], Wednesday, Wednesday, and Wednesday. COVID19 negative. Nephrology, Wound Care, and Vascular following. Pt had surgery on 02/10/2022. Pt is current on services with [facility], ; fax [phone]. PT/OT ordered. SS will continue to follow for discharge planning.
[2022-02-12 15:00] VITALS: BP 111/66
[2022-02-12] MEDS ORDERED: INSULIN LISPRO 300 UNITS/3 ML VIAL. SQ ONE (17:30)
[2022-02-12] MEDS: GABAPENTIN 300 MG CAPSULE. PO SCH (21:00)
--- NOTE | 2022-02-12 22:00 | NUR ---
TELE MONITOR NOTE: Removed patient from telemetry monitoring per unit protocol.
[2022-02-12 23:00] VITALS: BP 116/82
[2022-02-12] MEDS ORDERED: GABA300C9 PO (23:54)
[2022-02-13] MEDS: oxyCODONE/APAP 5/325 1 TAB TABLET PO PRN ×4 (02:08→20:51)
[2022-02-13] MEDS: HEPARIN for SUB-Q USE 5,000 UNIT/ML VIAL. SQ SCH ×3 (06:00→21:07)
[2022-02-13 07:00] VITALS: BP 110/65
[2022-02-13] MEDS ORDERED: DIALYSIS PATIENT. MC PRN ×4 (08:00→13:00)
[2022-02-13] MEDS: FOLIC/VIT B COMP W-C (RENAL) TABLET. PO SCH (08:34)
[2022-02-13] MEDS: DOCUSATE SODIUM 100 MG CAPSULE. PO SCH ×2 (08:35→21:00)
[2022-02-13] MEDS: SENNOSIDES/DOCUSATE 8.6/50MG TABLET. PO SCH ×2 (08:35→21:00)
[2022-02-13] MEDS: INSULIN GLARGINE SYRINGE. SQ SCH ×2 (08:47→21:05)
[2022-02-13] MEDS: INSULIN LISPRO 300 UNITS/3 ML VIAL. SQ SCH ×3 (08:47→17:26)
--- NOTE | 2022-02-13 09:00 | NUR ---
Patient refused dialysis tx today. Pt also stated he did not want tx tomorrow because it was not his regular day.
[2022-02-13 11:00] VITALS: BP 95/57
--- NOTE | 2022-02-13 11:12 | PDOC ---
Renal-Progress Notes Subjective Notes Notes NO NEW COMPLAINTS History of Present Illness Hx of present illness STABLE Vitals Vitals Vital Signs Date Time Temp Pulse Resp B/P (MAP) Pulse Ox O2 Delivery O2 Flow Rate FiO2 02/13/22 08:34 93 Room Air 02/13/22 07:00 97.8 79 18 110/65 (80) 97.8 Weight Weight [ ] I.O. Intake and Output Intake and Output 02/13/22 07:00 Intake Total 0 ml Balance 0 ml Intake Oral 0 ml # Bowel Movements 4 Labs Labs Laboratory Tests Test 02/12/22 11:57 02/12/22 17:00 02/12/22 20:53 02/13/22 08:10 Glucose (Fingerstick) 281 mg/dL (70-99) 462 mg/dL (70-99) 119 mg/dL (70-99) 294 mg/dL (70-99) Micro Micro Microbiology 02/10/22 Gram Stain - Final, Resulted 02/10/22 Aerobic and Anaerobic Culture - Preliminary, Resulted Enterococcus Faecium Dorita Parapsilosis Review of Systems Constitutional: yes: alert, oriented Ears/Nose/Throat: Yes: no symptom reported Eyes: Yes: no symptom reported Pulmonary: Yes no symptom reported Cardiovascular: Yes no symptom reported Gastrointestional: Yes: no symptom reported Genitourinary: Yes: no symptom reported Musculoskeletal: Yes: joint pain, muscle atrophy Skin: Yes no symptom reported Psychiatric/Neurological: Yes: no symptom reported Endocrine: Yes: no symptom reported Physical Exam General Appearance: no apparent distress Skin: warm Respiratory: bilateral CTA Heart: S1S2 Abdomen: soft, bowel sounds present Genitourinary: bladder flat Extremities: pulses present, atrophy Neurology: alert, Ext weakness Assessment Assessment IMP ESRD ANEMIA DM II HTN LEFT FOOT WOUND S/P DEBRIDEMENT AND 4TH/5TH TOE AMP PLAN HD TODAY UF TO TW CONT EPOGEN ANTBIOTICS WOUND CARE WILL FOLLOW MARTINEZ JENSEN MD February 13, 2022 11:12
--- NOTE | 2022-02-13 11:28 | NUR ---
Wound/Ostomy Care Wound Type/Assessment: Patient seen per wound care consult. See wound assessment. Patient is well known to us from previous admissions. Patient had surgery on 02/10/22 with vascular where they did a left 4th and 5th amputation including met head this time. wound vac was placed in surgery. Dressing removed and wound cleansed, assessed, measured, and pictured. Treatment Recommendations/Plan: Recommendations to continue with the wound vac per vascular. skin prepped and one piece of meyers foam placed to wound bed and a good seal maintained at 125mmHg continuos. Vascular at bedside for assessment. Patient has home wound vac already. Education provided: Patient educated on wound care and vac therapy. Pt verbalized understanding. Offloading surface/device: Patient to have offloading shoe and refer to vascular for further orders. Recommended Referrals/Tests: Patient to follow up with vascular. Discharge Recommendations for dressings: same as above. awaiting for further instructions as to where patient will go at discharge.
--- NOTE | 2022-02-13 11:57 | PDOC ---
Provider Note Date of Service: DATE: 02/13/22 TIME: 11:43 Provider Note Provider Note Vascular S: Patient underwent surgical debridement of his left foot on 02/10. He reports doing well today without any complaints. He is waiting for rehab placement, specifically for physical therapy. He had an arterial duplex done postoperatively this has been reviewed. He has elevated velocities in the common femoral artery. Patient does not have any pain. O: Vital signs stable, afebrile Awake alert in no apparent distress Respirations nonlabored, room air Left foot wound assessed, wound edges are clean and pink along the wound borders, there is thin layer of slough yellow tissue overlying the majority of the central wound bed, some areas of dark discoloration which may be from cauterization from surgery. Otherwise his foot is warm, motor function and sensation intact. Arterial duplex reviewed: Elevated velocities in the left common femoral artery. Otherwise comparable to previous ultrasound. A/P: Peripheral arterial disease Left foot wound, status post debridement 02/10 - Continue wound VAC therapy and offloading to left foot wound, to be nonweight bearing on left forefoot. - Dr. Callejas reviewed the arterial duplex, this is comparable to his prior angiogram therefore do not think further vascular intervention is indicated at this time. We will plan to see him in the office in 3 weeks with ABIs and to reevaluate his wound. - can resume his Eliquis, our recommendation is that he is on aspirin in addition to this - Pt was on abx prior to admission, will discuss with ID their recommendations for continuing abx per Dr. Callejas. - Ok for discharge from our standpoint once medically stable and arrangements made. Justicifation of Admission Dx: Justifications for Admission: Justification of Admission Dx: Yes Chronic Renal Failure: Electrolyte Abnormality JOSÉ MIGUEL KIRBY February 13, 2022 11:57
[2022-02-13] MEDS ORDERED: ALBUMIN HUMAN 25% 200 ML IV PRN (13:00)
[2022-02-13] MEDS ORDERED: IV NORMAL SALINE 1000ML BAG 1,000 ML IV PRN ×2 (13:00)
[2022-02-13 15:00] VITALS: BP 157/85
[2022-02-13] MEDS: ASPIRIN ENTERIC COATED 81 MG TABLET.DR. PO SCH (18:00)
[2022-02-13 19:00] VITALS: BP 108/67
--- NOTE | 2022-02-13 20:30 | NUR ---
Patient refuses to allow this typewriter assembly and parts inspector to assess his heart and lungs, "It was done today...there ain't nothing wrong with my heart and lungs.'
[2022-02-13] MEDS: AMOXICILLIN/K CLAV 875/125MG TABLET. PO SCH (20:53)
[2022-02-13] MEDS: GABAPENTIN 300 MG CAPSULE. PO SCH (20:55)
[2022-02-13 23:00] VITALS: BP 104/68
[2022-02-14] MEDS: HEPARIN for SUB-Q USE 5,000 UNIT/ML VIAL. SQ SCH ×3 (06:00→21:37)
--- NOTE | 2022-02-14 06:00 | NUR ---
Patient is not given heparin, agitated about receiving most of his meds, which were refused, he refused his 2200 heparin, this 0600 dose is not administered, in addition to not wanting to be awakened. this automotive service writer awaited for patient to wake up until this time, so heparin was not administered.
[2022-02-14 07:00] VITALS: BP 125/79
[2022-02-14] MEDS: ASPIRIN ENTERIC COATED 81 MG TABLET.DR. PO SCH (08:22)
[2022-02-14] MEDS: FOLIC/VIT B COMP W-C (RENAL) TABLET. PO SCH (08:22)
[2022-02-14] MEDS: oxyCODONE/APAP 5/325 1 TAB TABLET PO PRN ×4 (08:23→21:28)
[2022-02-14] MEDS: INSULIN LISPRO 300 UNITS/3 ML VIAL. SQ SCH ×3 (08:29→17:28)
[2022-02-14] MEDS: DOCUSATE SODIUM 100 MG CAPSULE. PO SCH ×2 (09:00→21:00)
[2022-02-14] MEDS: SENNOSIDES/DOCUSATE 8.6/50MG TABLET. PO SCH ×2 (09:00→21:00)
[2022-02-14] MEDS: INSULIN GLARGINE SYRINGE. SQ SCH ×2 (10:48→21:00)
--- NOTE | 2022-02-14 10:50 | PDOC ---
[employer] PROGRESS NOTE Date of Service DOS: DATE: 02/14/22 TIME: 10:48 Chief Complaint Chief Complaint Left toe amputation history of diabetes ESRD -Home meds resumed as indicated -Nephrology consult given ESRD -Holding off antibiotics until any culture results. Defer to vascular in meantime. Received Ancef in OR. Started on Augmentin 02/13 after. ID consulted by vascular -PT OT -Will need placement. History of Present Illness History of Present Illness 02/14 Patient evaluated examined at bedside. Sitting up in bed eating peanut Butter and crackers. Does need rehab placement patient agreeable. Continue Augmentin. Monitor sugars. Defer rest to vascular. Vitals/I&O Vitals/I&O: Vital Signs Date Time Temp Pulse Resp B/P (MAP) Pulse Ox O2 Delivery O2 Flow Rate FiO2 02/14/22 09:11 100 Room Air 02/14/22 07:00 97.5 80 18 125/79 (94) 97.5 I & O 02/13/22 02/13/22 02/14/22 15:00 23:00 07:00 Intake Total 250 ml 250 ml Balance 250 ml 250 ml Physical Exam General: Alert, Oriented X3, Cooperative, No acute distress Heart: Regular rate Lungs: Clear Abdomen: Normal bowel sounds, Soft, No tenderness Extremities: Other (LEFT FOOT DRAIN) Skin: No rashes, No breakdown Labs Labs: Laboratory Tests Test 02/13/22 11:34 02/13/22 17:06 02/13/22 20:35 02/14/22 08:19 Glucose (Fingerstick) 191 mg/dL (70-99) 206 mg/dL (70-99) 171 mg/dL (70-99) 163 mg/dL (70-99) Comment Review of Relevant I have reviewed the following items keron (where applicable) has been applied. Medications: Current Medications Medications (Trade) Dose Ordered Sig/Raymon Route PRN Reason Start Time Stop Time Status Last Admin Dose Admin Amoxicillin/ Clavulanate Potassium (Augmentin 875/ 125mg) 1 tab Q24H PO 02/13/22 18:00 02/13/22 20:53 Aspirin (Ecotrin) 81 mg DAILYWBKFT PO 02/13/22 18:00 02/14/22 08:22 Justifications for Admission Other Justification Right foot wound infection TIM ESQUIVEL MD February 14, 2022 10:50
[2022-02-14 11:23] VITALS: BP 95/57
[2022-02-14] MEDS: LACTOBACILLUS RHAMNOSUS GG 1 CAPSULE. PO SCH ×2 (12:27→21:00)
[2022-02-14 15:11] VITALS: BP 115/67
[2022-02-14] MEDS: AMOXICILLIN/K CLAV 875/125MG TABLET. PO SCH (17:22)
[2022-02-14 19:00] VITALS: BP 109/60
[2022-02-14] MEDS: GABAPENTIN 300 MG CAPSULE. PO SCH (21:23)
[2022-02-15] MEDS: HEPARIN for SUB-Q USE 5,000 UNIT/ML VIAL. SQ SCH ×3 (06:00→22:29)
[2022-02-15 07:00] VITALS: BP 125/67
[2022-02-15] MEDS: ASPIRIN ENTERIC COATED 81 MG TABLET.DR. PO SCH (08:45)
[2022-02-15] MEDS: INSULIN GLARGINE SYRINGE. SQ SCH ×2 (08:51→22:30)
[2022-02-15] MEDS: INSULIN LISPRO 300 UNITS/3 ML VIAL. SQ SCH ×3 (08:52→17:49)
[2022-02-15] MEDS: DOCUSATE SODIUM 100 MG CAPSULE. PO SCH ×2 (09:00→20:21)
[2022-02-15] MEDS: LACTOBACILLUS RHAMNOSUS GG 1 CAPSULE. PO SCH ×2 (09:00→20:21)
[2022-02-15] MEDS: SENNOSIDES/DOCUSATE 8.6/50MG TABLET. PO SCH ×2 (09:00→20:21)
[2022-02-15] MEDS: FOLIC/VIT B COMP W-C (RENAL) TABLET. PO SCH (09:00)
[2022-02-15 15:00] VITALS: BP 150/72
[2022-02-15] MEDS: oxyCODONE/APAP 5/325 1 TAB TABLET PO PRN ×2 (15:24→20:20)
[2022-02-15] MEDS: MICAFUNGIN 100 MG in IV NORMAL SALINE 100ML 100 ML IV SCH (15:43)
[2022-02-15] MEDS: DAPTOmycin (GENERIC) IVPB 500 MG in IV NORMAL SALINE 50ML 50 ML IV SCH (17:44)
[2022-02-15 19:00] VITALS: BP 131/69
--- NOTE | 2022-02-15 19:04 | PDOC ---
[employer] PROGRESS NOTE Date of Service DOS: DATE: 02/15/22 TIME: 19:03 Chief Complaint Chief Complaint Left toe amputation history of diabetes ESRD -Home meds resumed as indicated -Nephrology consult given ESRD -Holding off antibiotics until any culture results. Defer to vascular in meantime. Received Ancef in OR. Started on Augmentin 02/13 after. ID consulted by vascular -PT OT -Will need placement. History of Present Illness History of Present Illness 02/15 Evaluated examined at bedside. No major changes clinically from yesterday. Needs placement. Continue abx; PT/OT. Dialysis per nephrology. Wound vac in place. Sugar control. discussed with bedside RN 02/14 Patient evaluated examined at bedside. Sitting up in bed eating peanut Butter and crackers. Does need rehab placement patient agreeable. Continue Augmentin. Monitor sugars. Defer rest to vascular. Vitals/I&O Vitals/I&O: Vital Signs Date Time Temp Pulse Resp B/P (MAP) Pulse Ox O2 Delivery O2 Flow Rate FiO2 02/15/22 17:49 Room Air 02/15/22 15:00 98.0 87 20 150/72 (98) 92 98.0 I & O 02/14/22 02/14/22 02/15/22 15:00 23:00 07:00 Intake Total 750 ml 450 ml 240 ml Balance 750 ml 450 ml 240 ml Physical Exam General: Alert, Oriented X3, Cooperative, No acute distress Heart: Regular rate Lungs: Clear Abdomen: Normal bowel sounds, Soft, No tenderness Extremities: Other (LEFT FOOT DRAIN) Skin: No rashes, No breakdown Labs Labs: Laboratory Tests Test 02/15/22 07:44 02/15/22 12:24 02/15/22 17:10 Glucose (Fingerstick) 271 mg/dL (70-99) 226 mg/dL (70-99) 263 mg/dL (70-99) Comment Review of Relevant I have reviewed the following items keron (where applicable) has been applied. Medications: Current Medications Medications (Trade) Dose Ordered Sig/Raymon Route PRN Reason Start Time Stop Time Status Last Admin Dose Admin Daptomycin 500 mg/ Sodium Chloride 50 ml @ 100 mls/hr QODAY IV 02/15/22 15:30 02/15/22 17:44 Micafungin Sodium 100 mg/Sodium Chloride 100 ml @ 100 mls/hr Q24H IV 02/15/22 16:00 02/15/22 15:43 Justifications for Admission Other Justification Right foot wound infection TIM ESQUIVEL MD February 15, 2022 19:04
[2022-02-15] MEDS: GABAPENTIN 300 MG CAPSULE. PO SCH (20:19)
[2022-02-15 23:00] VITALS: BP 133/70
[2022-02-16] MEDS: HEPARIN for SUB-Q USE 5,000 UNIT/ML VIAL. SQ SCH ×3 (06:17→21:32)
[2022-02-16 07:00] VITALS: BP 154/82
[2022-02-16] MEDS: oxyCODONE/APAP 5/325 1 TAB TABLET PO PRN ×2 (07:35→18:03)
[2022-02-16] MEDS: INSULIN LISPRO 300 UNITS/3 ML VIAL. SQ SCH ×3 (08:00→18:24)
[2022-02-16] MEDS ORDERED: LIDOCAINE 1% PF 2 ML VIAL. ID PRN (08:15)
[2022-02-16] MEDS ORDERED: IV NORMAL SALINE 1000ML BAG 1,000 ML IV PRN ×2 (08:15)
[2022-02-16] MEDS ORDERED: DIALYSIS PATIENT. MC PRN (08:15)
[2022-02-16] MEDS: INSULIN GLARGINE SYRINGE. SQ SCH ×2 (09:00→21:36)
[2022-02-16] MEDS: SENNOSIDES/DOCUSATE 8.6/50MG TABLET. PO SCH ×2 (09:00→20:39)
[2022-02-16] MEDS: FOLIC/VIT B COMP W-C (RENAL) TABLET. PO SCH (09:00)
[2022-02-16] MEDS: DOCUSATE SODIUM 100 MG CAPSULE. PO SCH ×2 (09:00→20:39)
--- NOTE | 2022-02-16 09:22 | CONS ---
DATE OF CONSULTATION: 02/15/2022 REFERRING PHYSICIAN: WENDY Roberts. REASON FOR CONSULTATION: Antibiotic management for debridement of left foot and left fourth and fifth toe amputation. HISTORY OF PRESENT ILLNESS: A 66-year-old male with history of poorly healing left second and third toe amputation site, necrotic left fourth and fifth toe, end-stage renal disease, on HD, PAD, status post left SFA atherectomy and stent placement, underwent left fourth and fifth toe amputation with metatarsal heads, sharp excisional debridement of subcutaneous tissue, muscle and bone and application of negative pressure wound VAC therapy on 02/10/2022. The patient is currently on Augmentin. Intraoperative cultures are positive for Enterococcus faecium VRE and Dorita parapsilosis. ID consultation has been requested for antibiotic management. PAST MEDICAL HISTORY: Hypertension, anemia, history of hepatitis A, B and C, chronic renal insufficiency, hematuria, diabetes, hyperparathyroidism. PAST SURGICAL HISTORY: Cholecystectomy, colectomy, atherectomy, angioplasty, amputation. SOCIAL HISTORY: Negative for smoking, ETOH or illicit drug use. CURRENT MEDICATIONS: Augmentin. REVIEW OF SYSTEMS: Negative except for above in HPI. PHYSICAL EXAMINATION: VITAL SIGNS: Stable, afebrile. GENERAL: Alert, oriented x 3 male, sitting upright in chair, in no acute distress. HEENT: Normocephalic, atraumatic. Anicteric. NECK: Supple, no lymphadenopathy. LUNGS: Clear. HEART: S1, S2, regular. ABDOMEN: Soft, nontender, bowel sounds present. EXTREMITIES: Left foot wound VAC in place, not taken down. NEUROLOGIC: Alert, moves all 4 extremities. PSYCHIATRIC: Calm. LABORATORY DATA: WBC on 02/10/2022 is 4.7, hemoglobin 9.6, hematocrit 30.0, platelets 171. Sodium 137, potassium 3.6, chloride 97, bicarbonate 27, BUN 20, creatinine 6.3, glucose 249, calcium 9.7. Hepatitis serology is noted. SARS-COVID negative. MICROBIOLOGY: Left foot culture, Enterococcus faecium, ampicillin resistant, linezolid sensitive, vancomycin resistant, left foot MRSA, sensitive to tetracycline and linezolid, resistant to trimethoprim, sulfa, sensitive to vancomycin, sensitive to ceftaroline, clindamycin, daptomycin, erythromycin. IMAGING: Duplex scan left arterial reviewed. IMPRESSION: 1. Left toe amputation with surgery on 02/10/2022 with wound VAC application. 2. Diabetes mellitus. 3. End-stage renal disease, on hemodialysis. 4. Cultures positive for vancomycin resistant Enterococcus faecium, Dorita parapsilosis and methicillin-resistant Staphylococcus aureus. RECOMMENDATIONS: 1. Discontinue Augmentin. 2. Start daptomycin and micafungin. 3. Continue local wound care as directed. 4. Monitor labs and cultures. 5. Continue supportive care. Thank you for allowing me to participate in this patient's care. If you have any questions, do not hesitate to contact me. We will follow along with you. WAYNE/ISAMAR DR: Kristy TID: [phone]
--- NOTE | 2022-02-16 09:59 | PDOC ---
DATE OF SERVICE DATE: 02/16/22 TIME: 09:58 SUBJECTIVE ROS No complaints during dialysis OBJECTIVE Vital Signs Vital Signs Date Time Temp Pulse Resp B/P (MAP) Pulse Ox O2 Delivery O2 Flow Rate FiO2 02/16/22 07:35 18 100 Room Air 02/16/22 07:00 94 154/82 (106) 02/15/22 19:00 97.7 97.7 I & 0 Intake and Output 02/16/22 07:00 Intake Total 870 ml Balance 870 ml Intake Oral 720 ml IV Total 150 ml # Voids 1 # Bowel Movements 4 PHYSICAL EXAM Physical Exam GENERAL:not in distress. HEENT: OM moist,On RA NECK: Supple, no JVP, LUNGS: Clear.Non labored HEART: S1, S2, regular. ABDOMEN: Benign.Soft EXTREMITIES: Postsurgical dressing . ACCESS: Right upper arm AV fistula NEUROLOGIC: s alert, awake, and appropriate. No focal neurologic deficit. No marrufo, No CVA or SP tenderness DERM No Rash DIAGNOSIS/ASSESSMENT Assessment & Plan ESRD On HD MWF , Seen during dialysis, tolerating well . Continue as ordered , jaquan HARRY ACCESS: Right upper arm AV fistula PAD Left toe amputation with surgery on 02/10/2022 with wound VAC application. s/p left SFA atherectomy and angioplasty and stenting 11/2021. Gangrene within the left second toe amputation wound including necrosis of the metatarsal head and gangrene around the left third toe and metatarsal head bone. S/P Left third toe open ray amputation and debridement of the second toe amputation wound removing necrotic metatarsal head bone. Anemia- MIKEY Hypertension COMMENT/RELEVANT DATA Meds Current Medications Medications (Trade) Dose Ordered Sig/Raymon Start Time Stop Time Status Last Admin Dose Admin Acetaminophen/ Hydrocodone Bitart (Lortab 5/325) 2 tab PRN Q4HRS PRN 02/10/22 13:00 02/10/22 12:14 DC Al Hydroxide/Mg Hydroxide (Mylanta Plus Xs) 30 ml PRN Q3HRS PRN 02/10/22 13:00 Albumin Human 200 ml @ 200 mls/hr 1X PRN PRN 02/13/22 13:00 02/13/22 18:59 DC Amlodipine Besylate (Norvasc) 10 mg DAILY 02/11/22 09:00 02/11/22 13:11 10 MG Amoxicillin/ Clavulanate Potassium (Augmentin 875/ 125mg) 1 tab Q24H 02/13/22 18:00 02/15/22 15:22 DC 02/14/22 17:22 1 TAB Aspirin (Ecotrin) 81 mg DAILYWBKFT 02/13/22 18:00 02/15/22 08:45 81 MG Bisacodyl (Dulcolax Supp) 10 mg PRN DAILY PRN 02/10/22 13:00 Calcium Carbonate/ Glycine (Tums) 500 mg PRN Q3HRS PRN 02/10/22 13:00 Cefazolin Sodium (Ancef Im) 1 gm STK-MED ONCE 02/10/22 10:18 02/10/22 10:30 DC 02/10/22 10:18 1 GM Cefazolin Sodium (Ancef) 1 gm STK-MED ONCE 02/10/22 10:12 02/10/22 10:12 DC Cefazolin Sodium/ Dextrose 50 ml @ 100 mls/hr 1X PREOP PRN 02/10/22 06:00 02/10/22 18:00 DC 02/10/22 09:38 100 MLS/HR Daptomycin 500 mg/ Sodium Chloride 50 ml @ 100 mls/hr QODAY 02/15/22 15:30 02/15/22 17:44 100 MLS/HR Dextrose (Dextrose 50%-Water Syringe) 12.5 gm PRN Q15MIN PRN 02/10/22 11:45 Diphenhydramine HCl (Benadryl) 25 mg PRN Q6HRS PRN 02/10/22 13:00 Docusate Sodium (Colace) 100 mg DAILY 02/11/22 09:00 UNV Epoetin Amador (PROCRIT for DIALYSIS PTS) 20,000 unit 3X/WEEK ONCE 02/11/22 12:00 02/11/22 12:01 DC 02/11/22 13:12 20,000 UNIT Fentanyl Citrate (Fentanyl 2ml Vial) 100 mcg STK-MED ONCE 02/10/22 09:15 02/10/22 09:15 DC Gabapentin (Neurontin) 300 mg QHS 02/10/22 21:00 02/15/22 20:19 300 MG Heparin Sodium (Porcine) (Heparin Sodium) 5,000 unit Q8HRS 02/10/22 13:00 02/15/22 22:29 5,000 UNIT Hydromorphone HCl (Dilaudid) 0.5 mg PRN Q10MIN PRN 02/10/22 06:00 02/10/22 18:00 DC Info (PHARMACY MONITORING -- do not chart) 1 each PRN DAILY PRN 02/16/22 08:15 Insulin Glargine (Lantus Syringe) 25 unit BID 02/11/22 09:00 02/15/22 22:30 25 UNIT Insulin Human Lispro (HumaLOG VIAL for OP,RR ONLY) 0-10 units PRN Q1HR PRN 02/10/22 11:00 02/10/22 18:00 DC 02/10/22 11:21 6 UNIT Insulin Human Lispro (HumaLOG) 20 units 1X ONCE 02/12/22 17:30 02/12/22 17:31 DC 02/12/22 17:36 20 UNITS Lactobacillus Rhamnosus (Culturelle) 1 cap BID 02/14/22 12:00 02/15/22 20:21 1 CAP Lidocaine HCl (Lidocaine 1% 20ml Vial) 20 ml STK-MED ONCE 02/10/22 09:43 02/10/22 09:44 DC 02/10/22 10:18 10 ML Lidocaine HCl (Lidocaine Pf 2% Vial) 5 ml STK-MED ONCE 02/10/22 09:16 02/10/22 09:16 DC Lidocaine HCl (Xylocaine-Mpf 1% 2ml Vial) 0.5 ml 3X/WEEK PRN 02/16/22 08:15 02/17/22 08:14 02/16/22 09:44 0.5 ML Magnesium Hydroxide (Milk Of Magnesia) 2,400 mg PRN Q12HR PRN 02/10/22 13:00 Micafungin Sodium 100 mg/Sodium Chloride 100 ml @ 100 mls/hr Q24H 02/15/22 16:00 02/15/22 15:43 100 MLS/HR Morphine Sulfate (Morphine Sulfate) 2 mg STK-MED ONCE 02/10/22 11:03 02/10/22 11:03 DC Naloxone HCl (Narcan) 0.1 mg PRN Q2MIN PRN 02/10/22 13:00 Ondansetron HCl (Zofran) 4 mg STK-MED ONCE 02/10/22 09:16 02/10/22 11:36 DC Oxycodone/ Acetaminophen (Percocet 5/325) 2 tab PRN Q4HRS PRN 02/10/22 12:15 02/16/22 07:35 2 TAB Phenylephrine HCl (PHENYLEPHRINE in 0.9% NACL PF) 1 mg STK-MED ONCE 02/10/22 10:25 02/10/22 10:26 DC Prochlorperazine (Compazine) 25 mg PRN Q12HR PRN 02/10/22 13:00 Prochlorperazine Edisylate (Compazine) 5 mg PRN Q6HRS PRN 02/10/22 13:00 Propofol (Diprivan) 200 mg STK-MED ONCE 02/10/22 09:16 02/10/22 09:16 DC Ringer's Solution 1,000 ml @ 30 mls/hr Q24H 02/10/22 06:00 02/10/22 17:59 DC 02/10/22 08:23 30 MLS/HR Senna/Docusate Sodium (Senna Plus) 1 tab BID 02/10/22 21:00 02/13/22 08:35 1 TAB Sennosides (Senna) 17.2 mg PRN BID PRN 02/10/22 13:00 02/12/22 09:03 17.2 MG Sevoflurane (Ultane) 60 ml STK-MED ONCE 02/10/22 10:18 02/10/22 10:18 DC Sodium Chloride 1,000 ml @ 400 mls/hr Q2H30M PRN 02/16/22 08:15 02/16/22 20:14 Sodium Chloride (Normal Saline Flush) 3 ml QSHIFT PRN 02/10/22 13:00 Vitamin B Complex/ Vitamin C (Tiffani-Rakesh) 1 tab DAILY 02/11/22 09:00 02/14/22 08:22 1 TAB Zolpidem Tartrate (Ambien) 5 mg PRN QHS PRN 02/10/22 20:00 Lab Laboratory Tests Test 02/15/22 12:24 02/15/22 17:10 02/15/22 22:18 Glucose (Fingerstick) 226 mg/dL (70-99) 263 mg/dL (70-99) 336 mg/dL (70-99) Results All relevant outside records, renal labs, imaging studies, telemetry/EKG's were reviewed. Justicifation of Admission Dx: Justifications for Admission: Justification of Admission Dx: Yes Chronic Renal Failure: Electrolyte Abnormality NNAMDI TESFAYE MD February 16, 2022 09:59
--- NOTE | 2022-02-16 12:46 | PDOC ---
Infectious Disease Note Subjective Subjective pt is feeling ok, on HD ROS ROS no n/v/d/ Vital Sign Vital Signs Vital Signs Date Time Temp Pulse Resp B/P (MAP) Pulse Ox O2 Delivery O2 Flow Rate FiO2 02/16/22 09:00 94 154/82 02/16/22 07:35 18 100 Room Air 02/15/22 19:00 97.7 97.7 Physical Exam PHYSICAL EXAM GENERAL: Alert, oriented x 3 male, sitting upright in chair, in no acute distress. HEENT: Normocephalic, atraumatic. Anicteric. NECK: Supple, no lymphadenopathy. LUNGS: Clear. HEART: S1, S2, regular. ABDOMEN: Soft, nontender, bowel sounds present. EXTREMITIES: Left foot wound VAC in place, not taken down. NEUROLOGIC: Alert, moves all 4 extremities. PSYCHIATRIC: Calm. Labs Lab Laboratory Tests Test 02/15/22 17:10 02/15/22 22:18 Glucose (Fingerstick) 263 mg/dL (70-99) 336 mg/dL (70-99) Micro Microbiology 02/10/22 Gram Stain - Final, Complete 02/10/22 Aerobic and Anaerobic Culture - Final, Complete Enterococcus Faecium Vre Dorita Parapsilosis Enterococcus Faecium Dorita Parapsilosis Objective Assessment IMPRESSION: 1. Left toe amputation with surgery on 02/10/2022 with wound VAC application. 2. Diabetes mellitus. 3. End-stage renal disease, on hemodialysis. 4. Cultures positive for vancomycin resistant Enterococcus faecium, Dorita parapsilosis and methicillin-resistant Staphylococcus aureus. Plan Plan of Care cont antibiotics cont supportive care wound vac LIZZETH ANDRADE MD February 16, 2022 12:46
--- NOTE | 2022-02-16 13:47 | NUR ---
SS following up with discharge planning. SS reviewed pt chart and discussed with pt RN. Pt is currently on room air. Pt has outpatient hemodialysis at [facility], ; fax [phone], Wednesday, Wednesday, and Wednesday. COVID19 negative. Wound vac in place. PT/OT recommended retirement unit. SS met with pt and discussed discharge planning and retirement unit. Pt requesting to go to [facility], ; fax [phone], at this time. Referral sent as requested. SS will continue to follow for discharge planning.
[2022-02-16] MEDS: ASPIRIN ENTERIC COATED 81 MG TABLET.DR. PO SCH (14:28)
[2022-02-16] MEDS: LACTOBACILLUS RHAMNOSUS GG 1 CAPSULE. PO SCH ×2 (14:29→21:30)
--- NOTE | 2022-02-16 15:43 | PDOC ---
[employer] PROGRESS NOTE Date of Service DOS: DATE: 02/16/22 TIME: 15:39 Chief Complaint Chief Complaint Left toe amputation history of diabetes ESRD -Home meds resumed as indicated -Nephrology consult given ESRD -Holding off antibiotics until any culture results. Defer to vascular in meantime. Received Ancef in OR. Started on Augmentin 02/13 after. ID consulted by vascular -PT OT -Will need placement. History of Present Illness History of Present Illness 02/16: Patient seen and evaluated at bedside. Wound VAC in place. Patient is more concerned with the fact that he is eating at the time my evaluation. ID following for VRE bacteremia. Continue IV antibiotics per ID. 02/15 Evaluated examined at bedside. No major changes clinically from yesterday. Needs placement. Continue abx; PT/OT. Dialysis per nephrology. Wound vac in place. Sugar control. discussed with bedside RN 02/14 Patient evaluated examined at bedside. Sitting up in bed eating peanut Butter and crackers. Does need rehab placement patient agreeable. Continue Augmentin. Monitor sugars. Defer rest to vascular. Vitals/I&O Vitals/I&O: Vital Signs Date Time Temp Pulse Resp B/P (MAP) Pulse Ox O2 Delivery O2 Flow Rate FiO2 02/16/22 09:00 94 154/82 02/16/22 07:35 18 100 Room Air 02/15/22 19:00 97.7 97.7 I & O 02/15/22 02/15/22 02/16/22 15:00 23:00 07:00 Intake Total 480 ml 390 ml Balance 480 ml 390 ml Physical Exam Physical Exam: GENERAL: Alert, oriented x 3 male, sitting upright in chair, in no acute distress. HEENT: Normocephalic, atraumatic. Anicteric. NECK: Supple, no lymphadenopathy. LUNGS: Clear. HEART: S1, S2, regular. ABDOMEN: Soft, nontender, bowel sounds present. EXTREMITIES: Left foot wound VAC in place, not taken down. NEUROLOGIC: Alert, moves all 4 extremities. PSYCHIATRIC: Calm. General: Alert, Oriented X3, Cooperative, No acute distress Heart: Regular rate Lungs: Clear Abdomen: Normal bowel sounds, Soft, No tenderness Extremities: Other (LEFT FOOT DRAIN) Skin: No rashes, No breakdown Labs Labs: Laboratory Tests Test 02/15/22 17:10 02/15/22 22:18 02/16/22 13:57 Glucose (Fingerstick) 263 mg/dL (70-99) 336 mg/dL (70-99) 178 mg/dL (70-99) Comment Review of Relevant I have reviewed the following items keron (where applicable) has been applied. Medications: Current Medications Medications (Trade) Dose Ordered Sig/Raymon Route PRN Reason Start Time Stop Time Status Last Admin Dose Admin Micafungin Sodium 100 mg/Sodium Chloride 100 ml @ 100 mls/hr Q24H IV 02/15/22 16:00 02/15/22 15:43 Lidocaine HCl (Xylocaine-Mpf 1% 2ml Vial) 0.5 ml 3X/WEEK PRN ID FOR DIALYSIS 02/16/22 08:15 02/17/22 08:14 02/16/22 09:44 Justifications for Admission Other Justification Right foot wound infection МАРИЯ MOODY MD February 16, 2022 15:43
[2022-02-16] MEDS ORDERED: EPOETIN ALFA 20,000 UNIT/ML VIAL for DIALYSIS PTS. SQ SCH (16:00)
--- NOTE | 2022-02-16 16:46 | NUR ---
WOUND CARE: Patient possibly discharging tomorrow to [facility]. Wound care will change vac tomorrow, then next vac change on Wednesday. Then MWF can resume after that. Patient agreeable as well as vascular.
[2022-02-16] MEDS: MICAFUNGIN 100 MG in IV NORMAL SALINE 100ML 100 ML IV SCH (17:55)
--- NOTE | 2022-02-16 19:35 | NUR ---
Pt noncompliant and easily agitated. Pt refusing assessment however able to listen to heart and lungs and assess wound. Pt refusing vitals and states you have nothing to do with my dialysis arm. Pt informed of this nurse being able to assess making sure no signs of bleeding or complications anywhere that need to be reported. However pt not teachable at this time. Will continue to monitor.
[2022-02-16] MEDS: GABAPENTIN 300 MG CAPSULE. PO SCH (21:30)
[2022-02-16 23:28] VITALS: BP 118/58
[2022-02-17] MEDS: oxyCODONE/APAP 5/325 1 TAB TABLET PO PRN ×3 (03:11→14:15)
[2022-02-17 03:31] VITALS: BP 107/60
[2022-02-17] MEDS: HEPARIN for SUB-Q USE 5,000 UNIT/ML VIAL. SQ SCH ×2 (07:16→14:25)
[2022-02-17] MEDS: INSULIN LISPRO 300 UNITS/3 ML VIAL. SQ SCH ×2 (08:00→12:27)
[2022-02-17] MEDS: DOCUSATE SODIUM 100 MG CAPSULE. PO SCH (09:00)
[2022-02-17] MEDS: FOLIC/VIT B COMP W-C (RENAL) TABLET. PO SCH (09:00)
[2022-02-17] MEDS: SENNOSIDES/DOCUSATE 8.6/50MG TABLET. PO SCH (09:00)
--- NOTE | 2022-02-17 09:30 | PDOC ---
DATE OF SERVICE DATE: 02/17/22 TIME: 09:30 SUBJECTIVE ROS stable OBJECTIVE Vital Signs Vital Signs Date Time Temp Pulse Resp B/P (MAP) Pulse Ox O2 Delivery O2 Flow Rate FiO2 02/17/22 03:41 Room Air 02/17/22 03:31 98.0 80 18 107/60 (76) 97 98.0 I & 0 Intake and Output 02/17/22 07:00 Intake Total 900 ml Output Total 1 ml Balance 899 ml Intake Oral 900 ml Stool Total 1 ml # Bowel Movements 2 PHYSICAL EXAM Physical Exam GENERAL:not in distress. HEENT: OM moist,On RA NECK: Supple, no JVP, LUNGS: Clear.Non labored HEART: S1, S2, regular. ABDOMEN: Benign.Soft EXTREMITIES: Postsurgical dressing . ACCESS: Right upper arm AV fistula NEUROLOGIC: s alert, awake, and appropriate. No focal neurologic deficit. No marrufo, No CVA or SP tenderness DERM No Rash DIAGNOSIS/ASSESSMENT Assessment & Plan ESRD On HD MWF , No indication for HD today ACCESS: Right upper arm AV fistula PAD Left toe amputation with surgery on 02/10/2022 with wound VAC application. s/p left SFA atherectomy and angioplasty and stenting 11/2021. Gangrene within the left second toe amputation wound including necrosis of the metatarsal head and gangrene around the left third toe and metatarsal head bone. S/P Left third toe open ray amputation and debridement of the second toe amputation wound removing necrotic metatarsal head bone. Anemia- MIKEY Hypertension BP stable, Low normal Monitor COMMENT/RELEVANT DATA Meds Current Medications Medications (Trade) Dose Ordered Sig/Raymon Start Time Stop Time Status Last Admin Dose Admin Acetaminophen/ Hydrocodone Bitart (Lortab 5/325) 2 tab PRN Q4HRS PRN 02/10/22 13:00 02/10/22 12:14 DC Al Hydroxide/Mg Hydroxide (Mylanta Plus Xs) 30 ml PRN Q3HRS PRN 02/10/22 13:00 Albumin Human 200 ml @ 200 mls/hr 1X PRN PRN 02/13/22 13:00 02/13/22 18:59 DC Amlodipine Besylate (Norvasc) 10 mg DAILY 02/11/22 09:00 02/11/22 13:11 10 MG Amoxicillin/ Clavulanate Potassium (Augmentin 875/ 125mg) 1 tab Q24H 02/13/22 18:00 02/15/22 15:22 DC 02/14/22 17:22 1 TAB Aspirin (Ecotrin) 81 mg DAILYWBKFT 02/13/22 18:00 02/16/22 14:28 81 MG Bisacodyl (Dulcolax Supp) 10 mg PRN DAILY PRN 02/10/22 13:00 Calcium Carbonate/ Glycine (Tums) 500 mg PRN Q3HRS PRN 02/10/22 13:00 Cefazolin Sodium (Ancef Im) 1 gm STK-MED ONCE 02/10/22 10:18 02/10/22 10:30 DC 02/10/22 10:18 1 GM Cefazolin Sodium (Ancef) 1 gm STK-MED ONCE 02/10/22 10:12 02/10/22 10:12 DC Cefazolin Sodium/ Dextrose 50 ml @ 100 mls/hr 1X PREOP PRN 02/10/22 06:00 02/10/22 18:00 DC 02/10/22 09:38 100 MLS/HR Daptomycin 500 mg/ Sodium Chloride 50 ml @ 100 mls/hr QODAY 02/15/22 15:30 02/15/22 17:44 100 MLS/HR Dextrose (Dextrose 50%-Water Syringe) 12.5 gm PRN Q15MIN PRN 02/10/22 11:45 Diphenhydramine HCl (Benadryl) 25 mg PRN Q6HRS PRN 02/10/22 13:00 Docusate Sodium (Colace) 100 mg DAILY 02/11/22 09:00 UNV Epoetin Amador (PROCRIT for DIALYSIS PTS) 10,000 unit QMWF 02/16/22 16:00 02/16/22 18:03 10,000 UNIT Fentanyl Citrate (Fentanyl 2ml Vial) 100 mcg STK-MED ONCE 02/10/22 09:15 02/10/22 09:15 DC Gabapentin (Neurontin) 300 mg QHS 02/10/22 21:00 02/16/22 21:30 300 MG Heparin Sodium (Porcine) (Heparin Sodium) 5,000 unit Q8HRS 02/10/22 13:00 02/17/22 07:16 5,000 UNIT Hydromorphone HCl (Dilaudid) 0.5 mg PRN Q10MIN PRN 02/10/22 06:00 02/10/22 18:00 DC Info (PHARMACY MONITORING -- do not chart) 1 each PRN DAILY PRN 02/16/22 08:15 Insulin Glargine (Lantus Syringe) 25 unit BID 02/11/22 09:00 02/16/22 21:36 25 UNIT Insulin Human Lispro (HumaLOG VIAL for OP,RR ONLY) 0-10 units PRN Q1HR PRN 02/10/22 11:00 02/10/22 18:00 DC 02/10/22 11:21 6 UNIT Insulin Human Lispro (HumaLOG) 20 units 1X ONCE 02/12/22 17:30 02/12/22 17:31 DC 02/12/22 17:36 20 UNITS Lactobacillus Rhamnosus (Culturelle) 1 cap BID 02/14/22 12:00 02/16/22 21:30 1 CAP Lidocaine HCl (Lidocaine 1% 20ml Vial) 20 ml STK-MED ONCE 02/10/22 09:43 02/10/22 09:44 DC 02/10/22 10:18 10 ML Lidocaine HCl (Lidocaine Pf 2% Vial) 5 ml STK-MED ONCE 02/10/22 09:16 02/10/22 09:16 DC Lidocaine HCl (Xylocaine-Mpf 1% 2ml Vial) 0.5 ml 3X/WEEK PRN 02/16/22 08:15 02/17/22 08:14 DC 02/16/22 09:44 0.5 ML Magnesium Hydroxide (Milk Of Magnesia) 2,400 mg PRN Q12HR PRN 02/10/22 13:00 Micafungin Sodium 100 mg/Sodium Chloride 100 ml @ 100 mls/hr Q24H 02/15/22 16:00 02/16/22 17:55 100 MLS/HR Morphine Sulfate (Morphine Sulfate) 2 mg STK-MED ONCE 02/10/22 11:03 02/10/22 11:03 DC Naloxone HCl (Narcan) 0.1 mg PRN Q2MIN PRN 02/10/22 13:00 Ondansetron HCl (Zofran) 4 mg STK-MED ONCE 02/10/22 09:16 02/10/22 11:36 DC Oxycodone/ Acetaminophen (Percocet 5/325) 2 tab PRN Q4HRS PRN 02/10/22 12:15 02/17/22 03:11 2 TAB Phenylephrine HCl (PHENYLEPHRINE in 0.9% NACL PF) 1 mg STK-MED ONCE 02/10/22 10:25 02/10/22 10:26 DC Prochlorperazine (Compazine) 25 mg PRN Q12HR PRN 02/10/22 13:00 Prochlorperazine Edisylate (Compazine) 5 mg PRN Q6HRS PRN 02/10/22 13:00 Propofol (Diprivan) 200 mg STK-MED ONCE 02/10/22 09:16 02/10/22 09:16 DC Ringer's Solution 1,000 ml @ 30 mls/hr Q24H 02/10/22 06:00 02/10/22 17:59 DC 02/10/22 08:23 30 MLS/HR Senna/Docusate Sodium (Senna Plus) 1 tab BID 02/10/22 21:00 02/13/22 08:35 1 TAB Sennosides (Senna) 17.2 mg PRN BID PRN 02/10/22 13:00 02/12/22 09:03 17.2 MG Sevoflurane (Ultane) 60 ml STK-MED ONCE 02/10/22 10:18 02/10/22 10:18 DC Sodium Chloride 1,000 ml @ 400 mls/hr Q2H30M PRN 02/16/22 08:15 02/16/22 20:14 DC Sodium Chloride (Normal Saline Flush) 3 ml QSHIFT PRN 02/10/22 13:00 Vitamin B Complex/ Vitamin C (Tiffani-Rakesh) 1 tab DAILY 02/11/22 09:00 02/14/22 08:22 1 TAB Zolpidem Tartrate (Ambien) 5 mg PRN QHS PRN 02/10/22 20:00 Lab Laboratory Tests Test 02/16/22 13:57 02/16/22 18:12 02/16/22 20:37 02/17/22 07:58 Glucose (Fingerstick) 178 mg/dL (70-99) 261 mg/dL (70-99) 139 mg/dL (70-99) 108 mg/dL (70-99) Results All relevant outside records, renal labs, imaging studies, telemetry/EKG's were reviewed. Justicifation of Admission Dx: Justifications for Admission: Justification of Admission Dx: Yes Chronic Renal Failure: Electrolyte Abnormality NNAMDI TESFAYE MD February 17, 2022 09:30
[2022-02-17] MEDS: ASPIRIN ENTERIC COATED 81 MG TABLET.DR. PO SCH (09:46)
[2022-02-17] MEDS: LACTOBACILLUS RHAMNOSUS GG 1 CAPSULE. PO SCH (09:46)
[2022-02-17] MEDS: DAPTOmycin (GENERIC) IVPB 500 MG in IV NORMAL SALINE 50ML 50 ML IV SCH (09:49)
[2022-02-17 11:00] VITALS: BP 129/71
--- NOTE | 2022-02-17 12:11 | PDOC ---
[employer] PROGRESS NOTE Date of Service DOS: DATE: 02/17/22 TIME: 12:08 Chief Complaint Chief Complaint Left toe amputation history of diabetes ESRD -Home meds resumed as indicated -Nephrology consult given ESRD -Holding off antibiotics until any culture results. Defer to vascular in meantime. Received Ancef in OR. Started on Augmentin 02/13 after. ID consulted by vascular -PT OT -Will need placement. History of Present Illness History of Present Illness 02/17: Afebrile, denies chest pain. No tach in place to left lower extremity. He remains on micafungin and daptomycin. Patient is agreeable to SNU, but would is anxious to discharge from hospital hopefully by Wednesday. After discussion with social workers today, some difficulty finding facilities that can accommodate IV daptomycin. Will discuss with ID about switching to oral medications. Continue IV micafungin. 02/16: Patient seen and evaluated at bedside. Wound VAC in place. Patient is more concerned with the fact that he is eating at the time my evaluation. ID following for VRE bacteremia. Continue IV antibiotics per ID. 02/15 Evaluated examined at bedside. No major changes clinically from yesterday. Needs placement. Continue abx; PT/OT. Dialysis per nephrology. Wound vac in place. Sugar control. discussed with bedside RN 02/14 Patient evaluated examined at bedside. Sitting up in bed eating peanut Butter and crackers. Does need rehab placement patient agreeable. Continue Augmentin. Monitor sugars. Defer rest to vascular. Vitals/I&O Vitals/I&O: Vital Signs Date Time Temp Pulse Resp B/P (MAP) Pulse Ox O2 Delivery O2 Flow Rate FiO2 02/17/22 11:00 98.0 77 20 129/71 (90) 96 Room Air 98.0 I & O 02/16/22 02/16/22 02/17/22 15:00 23:00 07:00 Intake Total 500 ml 300 ml 100 ml Output Total 1 ml Balance 499 ml 300 ml 100 ml Physical Exam Physical Exam: GENERAL: Alert, oriented x 3 male, sitting upright in chair, in no acute distress. HEENT: Normocephalic, atraumatic. Anicteric. NECK: Supple, no lymphadenopathy. LUNGS: Clear. HEART: S1, S2, regular. ABDOMEN: Soft, nontender, bowel sounds present. EXTREMITIES: Left foot wound VAC in place, not taken down. NEUROLOGIC: Alert, moves all 4 extremities. PSYCHIATRIC: Calm. General: Alert, Oriented X3, Cooperative, No acute distress Heart: Regular rate Lungs: Clear Abdomen: Normal bowel sounds, Soft, No tenderness Extremities: Other (LEFT FOOT DRAIN) Skin: No rashes, No breakdown Labs Labs: Laboratory Tests Test 02/16/22 13:57 02/16/22 18:12 02/16/22 20:37 02/17/22 07:58 Glucose (Fingerstick) 178 mg/dL (70-99) 261 mg/dL (70-99) 139 mg/dL (70-99) 108 mg/dL (70-99) Test 02/17/22 11:06 Glucose (Fingerstick) 250 mg/dL (70-99) Comment Review of Relevant I have reviewed the following items keron (where applicable) has been applied. Medications: Current Medications Medications (Trade) Dose Ordered Sig/Raymon Route PRN Reason Start Time Stop Time Status Last Admin Dose Admin Epoetin Amador (PROCRIT for DIALYSIS PTS) 10,000 unit QMWF SQ 02/16/22 16:00 02/16/22 18:03 Justifications for Admission Other Justification Right foot wound infection МАРИЯ MOODY MD February 17, 2022 12:11
[2022-02-17] MEDS: INSULIN GLARGINE SYRINGE. SQ SCH (12:26)
--- NOTE | 2022-02-17 14:18 | PDOC ---
Infectious Disease Note Subjective Subjective pt is feeling ok, ROS ROS no n/v//d Vital Sign Vital Signs Vital Signs Date Time Temp Pulse Resp B/P (MAP) Pulse Ox O2 Delivery O2 Flow Rate FiO2 02/17/22 11:00 98.0 77 20 129/71 (90) 96 Room Air 98.0 Physical Exam PHYSICAL EXAM GENERAL: Alert, oriented x 3 male, sitting upright in chair, in no acute distress. HEENT: Normocephalic, atraumatic. Anicteric. NECK: Supple, no lymphadenopathy. LUNGS: Clear. HEART: S1, S2, regular. ABDOMEN: Soft, nontender, bowel sounds present. EXTREMITIES: Left foot wound , healthy granulation, no exposed bone or tendon NEUROLOGIC: Alert, moves all 4 extremities. PSYCHIATRIC: Calm. Labs Lab Laboratory Tests Test 02/16/22 18:12 02/16/22 20:37 02/17/22 07:58 02/17/22 11:06 Glucose (Fingerstick) 261 mg/dL (70-99) 139 mg/dL (70-99) 108 mg/dL (70-99) 250 mg/dL (70-99) Micro Microbiology 02/10/22 Gram Stain - Final, Complete 02/10/22 Aerobic and Anaerobic Culture - Final, Complete Enterococcus Faecium Vre Dorita Parapsilosis Enterococcus Faecium Dorita Parapsilosis Objective Assessment IMPRESSION: 1. Left toe amputation with surgery on 02/10/2022 with wound VAC application. 2. Diabetes mellitus. 3. End-stage renal disease, on hemodialysis. 4. Cultures positive for vancomycin resistant Enterococcus faecium, Dorita parapsilosis and methicillin-resistant Staphylococcus aureus. Plan Plan of Care cont antibiotics cont supportive care wound vac change to po zyvox and diflucan LIZZETH ANDRADE MD February 17, 2022 14:18
--- NOTE | 2022-02-17 14:24 | PDOC ---
Provider Note Date of Service: DATE: 02/17/22 TIME: 14:22 Provider Note Provider Note Vascular S: Patient underwent surgical debridement of his left foot on 02/10. He reports doing well today without any complaints. He is waiting for rehab placement. Patient does not have any pain. O: Vital signs stable, afebrile Awake alert in no apparent distress Respirations nonlabored, room air Left foot wound assessed, wound edges are clean and pink along the wound borders, there is thin layer of slough yellow tissue overlying some of the central wound bed, less than last assessment of wound. [place] granulation tissue forming. Slight maceration to surrounding wound edges. His foot is warm, motor function and sensation intact. A/P: Peripheral arterial disease Left foot wound, status post debridement 02/10 - Continue wound VAC therapy and offloading to left foot wound, to be nonweight bearing on left forefoot. - cont Eliquis and aspirin - cont abx per ID - Ok for discharge from our standpoint once medically stable and arrangements made. F/u with us as scheduled. Justicifation of Admission Dx: Justifications for Admission: Justification of Admission Dx: Yes Chronic Renal Failure: Electrolyte Abnormality JOSÉ MIGUEL KIRBY February 17, 2022 14:24
[2022-02-17] MEDS ORDERED: LINE600T12 PO (14:51)
[2022-02-17] MEDS ORDERED: Fluconazole PO (14:51)
[2022-02-17] MEDS ORDERED: ASPI-886 PO (14:51)
--- NOTE | 2022-02-17 14:57 | PDOC3 ---
Discharge Summary Visit Information Date of Admission: February 10, 2022 Date of Discharge: February 17, 2022 Brief Hospital Course Allergies Allergies Coded Allergies Type Severity Reaction Last Updated Verified prednisone Allergy Intermediate 02/05/22 Yes Vital Signs Vital Signs Date Time Temp Pulse Resp B/P (MAP) Pulse Ox O2 Delivery O2 Flow Rate FiO2 02/17/22 14:15 18 96 Room Air 02/17/22 11:00 98.0 77 129/71 (90) 98.0 Lab Results Laboratory Tests Test 02/15/22 15:20 02/15/22 17:10 02/15/22 22:18 02/16/22 13:57 Coronavirus (COVID-19)(PCR) Not detected (NOT DETECTD) Glucose (Fingerstick) 263 mg/dL (70-99) 336 mg/dL (70-99) 178 mg/dL (70-99) Test 02/16/22 18:12 02/16/22 20:37 02/17/22 07:58 02/17/22 11:06 Glucose (Fingerstick) 261 mg/dL (70-99) 139 mg/dL (70-99) 108 mg/dL (70-99) 250 mg/dL (70-99) Laboratory Tests Test 02/16/22 18:12 02/16/22 20:37 02/17/22 07:58 02/17/22 11:06 Glucose (Fingerstick) 261 mg/dL (70-99) 139 mg/dL (70-99) 108 mg/dL (70-99) 250 mg/dL (70-99) Brief Hospital Course Mr. Savage is a 66 old male who presented with necrotic left fourth and fifth toe. Consultation was placed to vascular surgery. He had left fourth and fifth toe amputation with metatarsal heads. Treated with wound VAC therapy and offloading to left foot. He was stable to resume his Eliquis and aspirin. Consultation was placed to nephrology to continue his likely schedule hemodialysis. Wound cultures were positive for vancomycin resistant Enterococcus faecium, Dorita parapsilosis, and methicillin-resistant Staphylo coccus aureus. Consultation was placed to ID. He was treated with IV fluconazole and IV daptomycin. He worked with PT/OT and was recommended SNU. His antibiotics were changed to oral fluconazole and linezolid. He was stable for discharge to [facility] for continued wound care and physical therapy. Discharge Information Condition at Discharge: Improved Disposition/Orders: D/C to Another Facility Scheduled Amlodipine Besylate (Amlodipine Besylate) 10 Mg Tablet, 10 MG PO DAILY for HIGH BLOOD PRESSURE MDD 1, #60 Prescribed by: ABDIAS GREWAL on 03/03/19 1126 Last Taken: Unknown Dose on 02/09/22 Last Action: Continued on 02/10/22 113 by TIM ESQUIVEL MD Apixaban (Eliquis) 5 Mg Tablet, 1 TAB PO BID for ppx, (Reported) Entered as Reported by: TRISTAN HERNDON on 01/19/22 2337 Last Taken: Unknown Dose on 02/06/22 Last Action: Reviewed on 02/10/22 0800 by EVIN AMOR Aspirin (Aspirin Ec) 81 Mg Tablet.dr, 81 MG PO DAILYWBKFT for CAD for 60 Days, #60 Ref 3 Prescribed by: МАРИЯ MOODY MD on 02/17/22 1451 Docusate Sodium (Dok) 100 Mg Capsule, 100 MG PO DAILY for prevent constipation, #30 Prescribed by: ERVIN BOOGIE on 03/06/21 1029 Last Taken: Unknown Dose on 02/09/22 Last Action: Continued on 02/10/221135 by TIM ESQUIVEL MD Folic Acid/Vitamin B Comp W-C (Nephro-Rakesh Tablet) 0.8 Mg Tablet, 1 TAB PO DAILY for renal disease, #30 Ref 5 (Reported) Entered as Reported by: FEROZ JACOBSEN RN on 03/26/21 2045 Last Taken: Unknown Dose on 02/09/22 Last Action: Continued on 02/10/221135 by TIM ESQUIVEL MD Gabapentin (Gabapentin) 300 Mg Capsule, 1 CAP PO TID for nerve pain, (Reported) Entered as Reported by: BROOKE RIVERS on 02/12/22 2354 Last Action: Reviewed on 02/12/222353 by BROOKE RIVERS Insulin Glargine,Hum.rec.anlog (Lantus Solostar) 100 Unit/1 Ml Insuln.pen, 15 UNIT SQ BID for blood sugar control for 30 Days, #15 Ref 3 Prescribed by: LORI EISENBERG MD on 01/23/22 0757 Last Taken: Unknown Dose on 02/09/22 Last Action: Converted on 02/10/22 1136 by TIM ESQUIVEL MD Insulin Lispro (Admelog) 100 Unit/1 Ml Vial, 0 UNITS SQ TIDWMEALS for PER PROTOCOL for 30 Days, #1 Prescribed by: KACI SANDERS MD on 04/28/21 1005 Last Action: HELD on 02/10/221135 by TIM ESQUIVEL MD Lactobacillus Rhamnosus Gg (Culturelle) 1 Each Cap.sprink, 1 CAP PO BID for gut health on antibiotics, #30 Prescribed by: ERVIN BOOGIE on 03/06/21 1029 Last Taken: Unknown Dose on 02/09/22 Last Action: HELD on 02/10/221135 by TIM ESQUIVEL MD Linezolid (Zyvox) 600 Mg Tablet, 600 MG PO BID for Cellulitis for 14 Days, #28 Prescribed by: МАРИЯ MOODY MD on 02/17/22 1451 [Fluconazole] 100 MG TABLET, 100 MG PO DAILY for Infection for 14 Days, #14 Prescribed by: МАРИЯ MOODY MD on 02/17/22 1451 Scheduled PRN Oxycodone Hcl (Oxycodone Hcl Immed.release ) 5 Mg Tablet, 5 MG PO PRN Q6HRS PRN for SEVERE PAIN 7-10 for 3 Days, #12 Prescribed by: LORI EISENBERG MD on 01/23/22 0758 Last Taken: Unknown Dose on 02/09/22 Last Action: HELD on 02/10/221135 by TIM ESQUIVEL MD Sennosides (Senna Lax) 8.6 Mg Tablet, 17.2 MG PO PRN BID PRN for CONSTIPATION, #30 Prescribed by: ERVIN BOOGIE on 03/06/21 1029 Last Taken: Unknown Dose on 02/09/22 Last Action: Continued on 02/10/221135 by TIM ESQUIVEL MD Justicifation of Admission Dx: Justifications for Admission: Justification of Admission Dx: Yes Chronic Renal Failure: Electrolyte Abnormality МАРИЯ MOODY MD February 17, 2022 14:57
--- NOTE | 2022-02-17 14:59 | NUR ---
SS following up with discharge planning. SS reviewed pt chart and discussed with pt RN. Pt is currently on room air. Pt has outpatient hemodialysis at [facility], ; fax [phone], Wednesday, Wednesday, and Wednesday. COVID19 negative. Wound vac in place. PT/OT recommended [facility] unit. Pt accepted at [facility]. Discharge orders received and sent to [facility]. Pt will discharge today and go to [facility] between 1600 and 1630[facility] and pt's RN notified.
[2022-02-17 15:00] VITALS: BP 120/61
[2022-02-17] MEDS ORDERED: FLUCONAZOLE 100 MG TABLET. PO SCH (15:00)
[2022-02-17] MEDS ORDERED: OXYC1TAB15 PO (15:11)
--- NOTE | 2022-02-17 15:18 | SNU/HH DC ---
DISCHARGE ORDERS DISCHARGE INFORMATION: DISCHARGE DATE: February 17, 2022 CONDITION ON DISCHARGE: Stable CODE STATUS: Code Status: Full SNF: SNF STAY <30 DAYS: Yes POST DISCHARGE ORDERS: ACTIVITY ORDERS: Activity as tolerated, Walk in house WEIGHT BEARING STATUS: As tolerated, Partial weight bearing BATHING ORDERS: Shower-keep dressing dry DIET AFTER DISCHARGE: Renal WOUND/INCISION CARE: Keep wound/cast CDI, Keep wound elevated CHECKS AFTER DISCHARGE: CHECKS AFTER DISCHARGE: Check blood press - daily, Check blood sugar, ac/hs, Check your Temp as needed, Weigh Yourself Daily FOLLOW-UP: LAB ORDERS FOR FOLLOW-UP: CBC, CMP ESR, TWICE A WEEK TREATMENT/EQUIPMENT ORDERS: ADAPTIVE EQUIPMENT NEEDED: None, Walker Physical Therapy For: Evalulation/Treatment Occupational Therapy For: Evaluation/Treatment Speech Language Pathology For: Evaluation/Treatment DISCHARGE MEDICATIONS: Home Meds Active Scripts Oxycodone/Apap 5-325 (PERCOCET 5-325 MG TABLET ) 1 Each Tablet, 1 TAB PO PRN Q4HRS PRN for PAIN for 7 Days, #28 TAB 0 Refills Prov:МАРИЯ MOODY MD 02/17/22 [Fluconazole] 100 MG TABLET No Conflict Check, 100 MG PO DAILY for Infection for 14 Days, #14 TAB Prov:МАРИЯ MOODY MD 02/17/22 Linezolid (ZYVOX) 600 Mg Tablet, 600 MG PO BID for Cellulitis for 14 Days, #28 TAB Prov:МАРИЯ MOODY MD 02/17/22 Aspirin (ASPIRIN EC) 81 Mg Tablet.dr, 81 MG PO DAILYWBKFT for CAD for 60 Days, #60 TAB.SR 3 Refills Prov:МАРИЯ MOODY MD 02/17/22 Oxycodone Hcl (OXYCODONE HCL IMMED.RELEASE ) 5 Mg Tablet, 5 MG PO PRN Q6HRS PRN for SEVERE PAIN 7-10 for 3 Days, #12 TAB Prov:LORI EISENBERG MD 01/23/22 Insulin Glargine,Hum.rec.anlog (LANTUS SOLOSTAR) 100 Unit/1 Ml Insuln.pen, 15 UNIT SQ BID for blood sugar control for 30 Days, #15 ML 3 Refills Prov:LORI EISENBERG MD 01/23/22 Insulin Lispro (Admelog) 100 Unit/1 Ml Vial, 0 UNITS SQ TIDWMEALS for PER SS PROTOCOL for 30 Days, #1 EACH Prov:KACI SANDERS MD 04/28/21 Lactobacillus Rhamnosus Gg (CULTURELLE) 1 Each Cap.sprink, 1 CAP PO BID for gut health on antibiotics, #30 CAP Prov:ERVIN BOOGIE MD 03/06/21 Sennosides (SENNA LAX) 8.6 Mg Tablet, 17.2 MG PO PRN BID PRN for CONSTIPATION, #30 TAB Prov:ERVIN BOOGIE MD 03/06/21 Docusate Sodium (DOK) 100 Mg Capsule, 100 MG PO DAILY for prevent constipation, #30 CAP Prov:ERVIN BOOGIE MD 03/06/21 Amlodipine Besylate (AMLODIPINE BESYLATE) 10 Mg Tablet, 10 MG PO DAILY for HIGH BLOOD PRESSURE MDD 1, #60 TAB Prov:ABDIAS GREWAL MD 03/03/19 Reported Medications Gabapentin (Gabapentin) 300 Mg Capsule, 1 CAP PO TID for nerve pain 02/12/22 Apixaban (ELIQUIS) 5 Mg Tablet, 1 TAB PO BID for ppx 01/19/22 Folic Acid/Vitamin B Comp W-C (NEPHRO-MIYA TABLET) 0.8 Mg Tablet, 1 TAB PO DAILY for renal disease, #30 TAB 5 Refills 03/26/21 МАРИЯ MOODY MD February 17, 2022 15:18
--- NOTE | 2022-02-17 17:16 | NUR ---
Nurse's note: Non administered Micafungin, no IV access. Patient does not want new IV placement. He refused vital signs determination, gets impulsive and verbally aggressive. Physical therapist came for treatment but the patient was uncooperative. Pictures prior to discharge not taken.
--- NOTE | 2022-02-17 17:22 | NUR ---
Discharge Note: [facility] [address] Discharge instructions and discharge home medications reviewed with Monique THOM[facility] of [facility] at [facility]and a copy given to the transport personnel. All questions have been answered and understanding verbalized. The following instructions and handouts were given: Pt is on PO antibiotics Wound vac to be placed on left foot, heel touch weight bearing Personal walker and portable wound vac with patient Follow up with MD as directed. Resume dialysis as scheduled. Patient discharged to [facility] at [address] on room air via wheelchair accompanied by transport personnel.
[2022-02-17] MEDS ORDERED: LINEZOLID 600 MG TABLET PO SCH (21:00)
== END 2022-02-17 16:45 | DRG 255 ==
LOC: SURG 07:07 → 5 NORTH 09:00
PROVIDERS: ADMIT Student in an Organized Health Care Education/Training Program; ATTEND Student in an Organized Health Care Education/Training Program
PROC: 0Y6Y0Z0 Detachment at Left 5th Toe, Complete, Open Approach (ICD-10-PCS; 2022-02-10)
PROC: 0QBP0ZZ Excision of Left Metatarsal, Open Approach (ICD-10-PCS; 2022-02-10)
PROC: 0Y6W0Z0 Detachment at Left 4th Toe, Complete, Open Approach (ICD-10-PCS; principal; 2022-02-10 09:00)
PROC: 5A1D70Z Performance of Urinary Filtration, Intermittent, Less than 6 Hours Per Day (ICD-10-PCS; 2022-02-11)
PROC: 5A1D70Z Performance of Urinary Filtration, Intermittent, Less than 6 Hours Per Day (ICD-10-PCS; 2022-02-13)
PROC: 5A1D70Z Performance of Urinary Filtration, Intermittent, Less than 6 Hours Per Day (ICD-10-PCS; 2022-02-16)
DX: E11.52 Type 2 diabetes mellitus with diabetic peripheral angiopathy with gangrene (principal); N18.6 End stage renal disease; I12.0 Hypertensive chronic kidney disease with stage 5 chronic kidney disease or end stage renal disease; L03.90 Cellulitis, unspecified; Z16.21 Resistance to vancomycin; T87.89 Other complications of amputation stump; Z99.2 Dependence on renal dialysis; B95.2 Enterococcus as the cause of diseases classified elsewhere; D64.9 Anemia, unspecified; E11.22 Type 2 diabetes mellitus with diabetic chronic kidney disease; I25.10 Atherosclerotic heart disease of native coronary artery without angina pectoris; Z79.4 Long term (current) use of insulin; Z79.82 Long term (current) use of aspirin; Z79.899 Other long term (current) drug therapy; Z82.49 Family history of ischemic heart disease and other diseases of the circulatory system; Z83.3 Family history of diabetes mellitus; E21.3 Hyperparathyroidism, unspecified; Z20.822 Contact with and (suspected) exposure to COVID-19; B95.62 Methicillin resistant Staphylococcus aureus infection as the cause of diseases classified elsewhere; B37.9 Candidiasis, unspecified; Z88.8 Allergy status to other drugs, medicaments and biological substances
CPT/HCPCS: 36415; 80048; 82962; 85025; 86706; 87075; 87077; 87186; 87340; 93926; A4223; A4930; A6211; J0690; J0878; J1644; J1815; J2248; J2270; J2370; J2405; J2704; J3010; J3490; U0003; 97116-GP; 97530-GP; G0378; Q4081